=== PATIENT | female | born 1940 | race Caucasian/White ===

== ENCOUNTER → 2019-12-17 14:59 | Outpatient (CLI) | payer MEDICARE, SELFPAY ==
--- NOTE | ~2019-12-17 | XR_ITS ---
XR chest 2V DATE: 12/17/2019 15:19 INDICATION: Cough TECHNIQUE: PA and lateral views COMPARISON: 10/22/2016 PA and lateral chest FINDINGS: Normal heart size. No hilar or mediastinal enlargement. There is aortic calcification and m ild unfolding. No pulmonary infiltrate or consolidation, pleural effusion or pulmonary vascular congestion or pneumo thorax is detected. Degenerative spurring of the thoracic and lumbar spine. IMPRESSION: No active cardiopulmonary disease Reviewed, dictated and finalized at location A.
== END ==
PROVIDERS: Visit Provider Internal Medicine
DX: R05 Cough (principal)
CPT/HCPCS: 71046

== ENCOUNTER 2022-01-12 11:03 | Outpatient (CLI) | payer MEDICARE, SELFPAY ==
--- NOTE | ~2022-01-12 | US_ITS ---
US pelvic complete w TV DATE: 01/12/2022 11:48 INDICATION: Abnormal vaginal bleeding; patient reports fallen uterus TECHNIQUE: Real-time imaging via transabdominal and translabial approach. Technologist was unable to perform transvaginal examination COMPARISON: None FINDINGS: This examination is very limited The uterus measures approximately 9.3 centers height, 4 cm AP and 5.8 cm transverse dimension with 8m m anteroposterior dimension of the central endometrial complex. The ovaries are not visualized. Consider CT or MR imaging for further evaluation. IMPRESSION: Limited examination; suboptimal visualization of the uterus and nonvisualization of the o varies Reviewed, dictated and finalized at Location A. Reviewed, dictated and finalized at location A. IMPRESSION: Limited examination; suboptimal visualization of the uterus and non visualization of the ovaries
== END 2022-01-12 11:04 ==
PROVIDERS: PCP Nurse Practitioner Family; Visit Provider Obstetrics & Gynecology
DX: N93.9 Abnormal uterine and vaginal bleeding, unspecified (principal)
CPT/HCPCS: 76830; 76856

== ENCOUNTER 2022-02-08 12:20 | Outpatient (CLI) | payer MEDICARE, SELFPAY ==
[2022-02-08 13:54] LABS: Basophils Absolute Auto 0.1 K/mm3 (0.0-0.1); Basophils Percent Auto 0.5 % (0.2-1.2); Eosinophils Absolute Auto 0.4 K/mm3 (0-0.3); Eosinophils Percent Auto 4.2 % (0-4.4); Hemoglobin 12.4 g/dL (12.0-15.0); Immature Granulocyte Absolute 0.04 K/mm3 (0.00-0.031); Immature Granulocyte Percent A 0.4 % (0-0.5); Lymphocytes Absolute Auto 1.76 K/mm3 (0.9-3.2); Lymphocytes Percent Auto 19.1 % (18.3-44.2); Mean Corpuscular Hemoglobin 29.7 pg (26-34); Mean Corpuscular Volume 95.7 fl (80-100); Mean Platelet Volume 9.7 fl (7.4-10.4); Monocytes Absolute Auto 0.6 K/mm3 (0.1-0.6); Monocytes Percent Auto 6.2 % (2.6-8.5); Neutrophils Absolute Auto 6.4 K/mm3 (1.3-6.7); Neutrophils Percent Auto 69.6 % (45.5-73.1); Platelet Count Result 242 k/mm3 (150-375); Red Blood Count 4.18 M/mm3 (4.2-5.4); Red Cell Distribution Width 13.9 % (11.5-14.5); White Blood Count 9.2 K/mm3 (4.5-10.0)
[2022-02-08 14:04] LABS: Alanine Aminotransferase 17 U/L (6-35); Albumin Level 4.3 g/dL (3.5-5.1); Alkaline Phosphatase 91 U/L (38-126); Anion Gap 4 mmol/L (8-16); Aspartate Amino Transferase 25 U/L (14-36); Bilirubin,Total 0.4 mg/dL (0.2-1.3); Blood Urea Nitrogen 28 mg/dL (7-17); Calcium 9.1 mg/dL (8.4-10.2); Carbon Dioxide 32 mmol/L (22-30); Chloride 103 mmol/L (98-107); Estimated Glomerular Filt Rate > 60; Glucose 107 mg/dL (65-110); Sodium 139 mmol/L (137-145)
[2022-02-08 14:23] LABS: INR 1.1; Partial Thromboplastin Time 25.3 SECONDS (22.3-36.8); Prothrombin Time 13.7 Seconds (11.1-14.7)
== END 2022-02-08 12:21 | disposition home or self-care (01) ==
LOC: ANHSURGERY 12:22
PROVIDERS: PCP Nurse Practitioner Family; Visit Provider Urology
DX: Z01.818 Encounter for other preprocedural examination (principal); N81.3 Complete uterovaginal prolapse; Z51.81 Encounter for therapeutic drug level monitoring; Z79.899 Other long term (current) drug therapy
CPT/HCPCS: 36415; 80053; 85025; 85610; 85730; 86850; 86900; 86901; 87086

== ENCOUNTER 2022-02-18 01:20 | Day surgery (SDC) | payer MEDICARE, SELFPAY ==
[2022-02-08 12:45] VITALS: BP 175/82; PULSE 70; RESP 16; TEMP 36.3; O2SAT 99; BMI 38.1
--- NOTE | 2022-02-08 13:03 | PC.NURSE ---
Report to the Outpatient Waiting Room, entrance under the green pavilion located off [facility], at time ___9:00AM____ on date __02/18/22 . OR Time: __11:00AM . - You and your visitor will be asked a series of questions to screen for COVID 19 for your protection. - Only one visitor is allowed at this time. - The patient visitor is requested to leave or wait in car when not with patient. - A mask is required within the hospital. Patients may have clear liquids (water, carbonated beverages, clear teas, apple juice) until 3 hours prior to surgery with a maximum of 20 ounces. - No food from midnight until time of surgery - Infants may have breast milk until 4 hours before surgery, formula 6 hours prior to surgery. - Children will be allowed to drink immediately following surgery. If applicable, please bring a bottle or sippy cup to assist with drinking. Juice, water, soda, and popsicles are readily available. For infants on formula, please bring formula the day of surgery. Pacifiers are allowed. Take the following medications with a SIP of water the morning of surgery: ____LEVOTHYROXINE, METOPROLOL Medications to discontinue per physician ____HOLD XERALTO 5 DAYS PRE-OP PER DR JOHNSON Date to take last dose____02/13/22 Please no make-up, nail greenlandic, hairspray, perfume, deodorant, or body powder the day of surgery. No jewelry (including any body piercings) or valuables the day of surgery, leave them at home. Please take a shower or bath the night before, or the morning of, surgery with an antibacterial soap. Wear comfortable, loose fitting clothing. Children are encouraged to wear pajamas. - Jewelry must be removed prior to entering the operating room. Rings and piercings that are not removed may be cut off. - The hospital will not accept responsibility for valuables. - Please leave all valuables, including medications, at home the day of surgery. If you are going home after surgery, a licensed tour driver must drive you home. - NO public transportation without another adult. - We recommend that an adult stay with you for 24 hours following discharge. - We also recommend that you do not drive, make important decision, drink alcoholic beverages, or take any drugs that were not prescribed by your health care provider for at least 24 hours after your discharge time. For Pediatric surgeries, we recommend two adults accompany the child home (only one inside the building at this time). Follow any additional instructions given to you from your surgeon. If you or anyone in your household have experienced Covid symptoms in the past week, please notify your surgeon or the nurse liaison at the phone number below for possible testing. Telephone instructions given to ___PATIENT and asked if any additional questions and then verbalized understanding. Patient advised to call surgeon office or pre surgery nurse liaison [phone] if any additional questions.
--- NOTE | 2022-02-17 21:17 | P.HP_ITS ---
H&P: HPI History of Present Illness Date/Time: 02/17/22 21:17 Chief Complaint: uterine prolapse. 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 Review of Systems Review of Systems: negative [facility] Past Medical History Medical History A-fib Diabetes type 2, controlled High blood pressure High cholesterol Family History Family History Other Acute myocardial infarction Acute rheumatic arthritis Cancer Depression Hypertension Social History Social History Smoking status: Never smoker Alcohol intake: current Substance use: never Substance use type: does not use Additional living arrangements comments: DAUGHTER Gender identity (if verbalized by the patient): Female Spiritual care concerns: No Meds Home Medications and Allergies Home Medications Medication Instructions Recorded Confirmed Type levothyroxine 100 mcg tablet 100 mcg PO QAM 01/02/22 02/08/22 History (Euthyrox) metoprolol tartrate 25 mg tablet 25 mg PO DAILY 01/02/22 02/08/22 History rivaroxaban 20 mg tablet (Xarelto) 20 mg PO DAILY 01/02/22 02/08/22 History simvastatin 20 mg tablet 20 mg PO DAILY 01/02/22 02/08/22 History amoxicillin 875 mg-potassium 1 tablet PO BID 02/08/22 02/08/22 History clavulanate 125 mg tablet lisinopril 20 1 tablet PO QAM 02/08/22 02/08/22 History mg-hydrochlorothiazide 25 mg tablet Allergies Allergy/AdvReac Type Severity Reaction Status Date / Time codeine AdvReac Intermediate NAUSEA Verified 02/08/22 12:33 Exam Narrative: NAD normal breating A+O x3 uterine prolapse +8 Assessment and Plan Assessment and plan (1) Uterine prolapse: Code(s): N81.4 - Uterovaginal prolapse, unspecified Status: Acute Assessment and Plan: Colpocleisis possible bulking agent
[2022-02-18] VITALS (8 sets, daily range): BP systolic 128–186; BP diastolic 57–93; PULSE 59–73; RESP 10–18; TEMP 36.1–36.7; O2SAT 96–100
[2022-02-18] MEDS: LACTATED RINGERS 1,000 ML 30 ML IV CONT ×2 (09:45→12:35)
--- NOTE | 2022-02-18 10:05 | WPDANESEPPF ---
Anes - Initial Pre Proc Eval Procedure: Operation Date: 02/18/22 11:00 Proposed Procedures p Colpocleisis - Willie Tadeo MD Date/Time: 02/18/22 10:05 Surgeon: Willie Tadeo MD Pre Op Diagnosis: Complete Uterovaginal Prolapse Patient Data Age: 81 Gender: F Height: 1.5 m Weight: 82.5 kg Last Vital Signs Temp 36.2 C L 02/18/22 09:22 Pulse 73 02/18/22 09:22 Resp 18 02/18/22 09:22 BP 186/79 H 02/18/22 09:22 Pulse Ox 100 02/18/22 09:22 O2 Del Method Room Air 02/18/22 09:22 Allergies Allergy/AdvReac Type Severity Reaction Status Date / Time codeine AdvReac Intermediate NAUSEA Verified 02/18/22 09:28 Home Medications Medication Instructions Recorded Confirmed Type levothyroxine 100 mcg tablet 100 mcg PO QAM 01/02/22 02/18/22 History (Euthyrox) metoprolol tartrate 25 mg tablet 25 mg PO DAILY 01/02/22 02/18/22 History rivaroxaban 20 mg tablet (Xarelto) 20 mg PO DAILY 01/02/22 02/18/22 History simvastatin 20 mg tablet 20 mg PO DAILY 01/02/22 02/18/22 History lisinopril 20 1 tablet PO QAM 02/08/22 02/18/22 History mg-hydrochlorothiazide 25 mg tablet Patient hx anesthesia problems: none Family hx anesthesia problems: none Results Review: All pre-operative results and documents have been reviewed as part of the pre-operative evaluation. [facility] [place] Past Medical History Medical History A-fib Diabetes type 2, controlled High blood pressure High cholesterol Family History Family History Other Acute myocardial infarction Acute rheumatic arthritis Cancer Depression Hypertension Social History Social History Smoking status: Never smoker Alcohol intake: current Substance use: never Substance use type: does not use Living arrangements: with family Additional living arrangements comments: DAUGHTER Gender identity (if verbalized by the patient): Female Spiritual care concerns: No Anes - Eval Final PreProcedure Day of Procedure 02/18/22 10:05 Patient weight: obese Heart: irregular rhythm Lungs: clear to auscultation Airway: Mallampati scale class II and special considerations poor dentition Neurological: other (alert) Last oral intake: >/= 8 hours ASA classification: III Emergent: no Anesthetic plan: proceed Anesthesia type and monitoring: general LMA and standard monitoring Results Review: All pre-operative results and documents have been reviewed as part of the pre-operative evaluation. Informed Consent: The patient's anesthetic plan and its attendant risks and benefits were discussed with the patient/family/POA. Questions were solicited and answers provided to the satisfaction of the patient/family/POA.
[2022-02-18] MEDS: ceFAZolin 2 GM/D5W 50 ML 2 GM/50 ML BAG IVPB (10:37)
[2022-02-18] MEDS: LIDO 1%/EPINEPHRINE/PF 1:200,000 30 ML VIAL XX (11:22)
--- NOTE | 2022-02-18 12:37 | W.PM.PROC2 ---
Procedure Note - Detailed Date of Procedure 02/18/22 Pre-op Diagnosis Complete Uterovaginal Prolapse Female perineal laxity Intrinsic sphincter deficiency Post-op Diagnosis Same Procedure Performed [place] colpocleisis Perineoplasty Cystoscopy with injection of bulking agent Surgeon Willie Tadeo MD Indications This was significant uterine prolapse. 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 She also has stress incontinence due to intrinsic sphincter deficiency. She is here today for a colpocleisis and bulking agent. She understands risks of bleeding, infection, damage surrounding organs, fistula formation, recurrence of prolapse, postoperative voiding dysfunction including incontinence and retention, inability to have penetrative intercourse. She agrees to proceed Findings Significant uterine prolapse Description of Procedure She has correctly identified. Informed consent obtained. From the operating room. She was given general anesthesia. She was placed in dorsal thigh position. She was prepped and draped in a sterile fashion. Time-out performed. I placed a [place] retractor. I placed a [place] catheter. She had significant uterine prolapse at +8. I kelly out rectangle shaped areas the anterior the posterior vaginal wall. I left drainage tunnels laterally. I anesthetized the posterior vaginal wall. I removed mucosa posterior vaginal wall taking great care to leave underlying fascial structures. Of note it was quite thin near the base of the prolapse. There is no violation of the peritoneum. I then removed a rectangle shaped area of skin on the anterior vaginal wall after anesthetizing it. I then performed a [place] colpocleisis. I left drainage tunnels laterally. I did this with serial sutures of 0 Vicryl. This route totally reduce the prolapse. I then closed mucosa to mucosa with interrupted horizontal mattress of 0 Vicryl. I then turned my attention to the perineum. There was quite a bit of perineal laxity. I anesthetized a sariah-shaped area of skin on the perineum. I removed this area of skin. I then performed a significant perineoplasty. This completed the colpocleisis. I did this with interrupted 0 Vicryl suture. I took great care not done violate underlying structures. I then closed the mucosa with a 2 0 Vicryl suture. This resulted in excellent perineal support and complete reduction of the prolapse. I then performed cystoscopy. She had significant trabeculations in the bladder. There were cellules present. There is no sign of any violation of the bladder urethra. A guidewire was placed up both ureters documenting patency. I then turned my attention a bulking agent. The urethra is open consistent with intrinsic sphincter deficiency. I chose a site 2 cm distal to the bladder neck. I injected the bulking agent circumferentially. I used 1 syringe of the bulkamid material. This resulted in complete coaptation of the urethra. I did a rectal exam to ensure no violation of the rectum. Eye exam for hemostasis. Sheth catheter was left out. She was awakened and transferred to PACU in stable condition.
--- NOTE | 2022-02-18 12:50 | WPDHPUPDATE1 ---
History and Physical Update Update Date/Time: 02/18/22 12:50 History and Physical has been reviewed, including an updated exam of the patient. There are NO changes in the patient's condition. Risks, benefits, and alternatives have been discussed and questions answered. Patient agrees to proceed with procedure.
[2022-02-18] MEDS: fentaNYL CITRATE INJ (*CRX) 100 MCG/2 ML VIAL 25 MCG IV PUSH ×3 (13:13→13:50)
[2022-02-18] MEDS: HYDROcodone/acetaminophen (*CRX) 5-325 MG TABLET 1 TAB PO ×2 (15:40→20:14)
[2022-02-18] MEDS: KCL 20 MEQ/D5/0.45% SOD CHL 1,000 ML 100 ML IV CONT (17:00)
[2022-02-19 00:30] VITALS: BP 138/65; PULSE 66; RESP 18; TEMP 36.7; O2SAT 97
[2022-02-19] MEDS: KCL 20 MEQ/D5/0.45% SOD CHL 1,000 ML 100 ML IV CONT (03:10)
[2022-02-19 04:30] VITALS: BP 143/68; PULSE 66; RESP 16; TEMP 36.4; O2SAT 97
[2022-02-19] MEDS: LEVOTHYROXINE SODIUM 100 MCG TABLET PO (07:03)
[2022-02-19 07:10] VITALS: BP 121/57; PULSE 67; RESP 18; TEMP 36.6; O2SAT 95
--- NOTE | 2022-02-19 09:13 | WPDANESPN ---
Anes - Prog Note Post-Op Date/Time: 02/19/22 09:13 Cardiovascular status: normal Respiratory status: normal Airway patency: baseline Mental status: baseline Post-Op hydration status: normal Vital Signs: Last Vital Signs Temp 97.9 F 02/19/22 07:10 Pulse 67 02/19/22 07:10 Resp 18 02/19/22 07:10 BP 121/57 L 02/19/22 07:10 Pulse Ox 95 02/19/22 07:10 O2 Del Method Room Air 02/19/22 04:30 O2 Flow Rate 8 02/18/22 12:55 Pain Score (VAS): 09/24 I/O: Intake & Output 02/18/22 02/19/22 02/19/22 23:59 07:59 15:59 Intake Total 290 1120 Output Total 925 425 Balance -635 695 Post-procedural complaints: none Patient Feedback: Patient satisfied with anesthetic care.
[2022-02-19] MEDS: ENOXAPARIN 30 MG/0.3 ML SYRINGE SUB-Q (09:53)
[2022-02-19] MEDS: DOCUSATE SODIUM 100 MG CAPSULE PO (09:53)
[2022-02-19 09:55] VITALS: PULSE 72
[2022-02-19] MEDS: hydroCHLOROthiazide 25 MG TABLET PO (09:55)
[2022-02-19] MEDS: METOPROLOL TARTRATE 25 MG TABLET PO (09:55)
[2022-02-19] MEDS: SIMVASTATIN 20 MG TABLET PO (09:56)
[2022-02-19] MEDS: lisinopriL 20 MG TABLET PO (09:56)
--- NOTE | 2022-02-19 11:55 | WPDUROPN2 ---
Progress Note: A&P Assessment and Plan (1) Uterine prolapse: Code(s): N81.4 - Uterovaginal prolapse, unspecified Status: Acute Assessment and Plan: Patient is doing very well, she can have her sim removed and a voiding trial. IF her bladder scan is <350cc she may be discharged home after urination. She will f/u in six weeks. (2) Complete uterine prolapse: Code(s): N81.3 - Complete uterovaginal prolapse Status: Acute Subjective Subjective Date/Time Seen: 02/19/22 11:55 [place] Colpocleisis, perineoplasty, cysto with injection of bulking agent. Patient is doing very well this morning, tolerating diet and activity. She has minimal pain. Post Op day: 1 Review of Systems Cardiovascular: Cardiovascular: Denies chest pain Respiratory: Respiratory: Reports no additional respiratory complaints Gastrointestinal: Gastrointestinal: Denies abdominal pain, Denies nausea and Denies vomiting Genitourinary: Genitourinary: Denies hematuria, Denies nocturia, Denies flank pain, Denies urinary urgency and Reports vaginal discharge Exam Const: General: cooperative Resp: Effort & Inspection: normal respiratory effort Cardio: Rate: regular rate GI: GI Palp: Yes Soft to palpation and No Tenderness to palpation present (GI) : General: Yes no CVA tenderness Urinary Catheter: Urinary Catheter: patent and draining and urine clear Back/Spine/Pelvis: Back: No CVA tenderness Extrem: Right lower extremity: edema Left lower extremity: edema Psych: Mental Status: mental status grossly normal Affect: normal affect Attitude: cooperative Objective Data Vital Signs Vital Signs: Vital Signs - 24 hr 02/18/22 12:40 02/18/22 12:55 02/18/22 13:10 Temperature 97.5 F L Pulse Rate 73 71 64 Respiratory Rate 14 16 14 Blood Pressure 129/74 145/83 H 136/64 Pulse Oximetry 100 100 98 Oxygen Delivery Simple Face Mask Simple Face Mask Room Air Oxygen Flow Rate 8 8 02/18/22 13:25 02/18/22 13:40 02/18/22 14:10 Temperature 97 F L Pulse Rate 62 59 L 59 L Respiratory Rate 10 L 16 18 Blood Pressure 130/69 138/93 H 136/57 L Pulse Oximetry 96 96 98 Oxygen Delivery Room Air Room Air Oxygen Flow Rate 02/18/22 14:10 02/18/22 20:05 02/18/22 20:05 Temperature 98.1 F Pulse Rate 59 L 72 72 Respiratory Rate 18 18 18 Blood Pressure 128/60 Pulse Oximetry 98 96 96 Oxygen Delivery Room Air Room Air Oxygen Flow Rate 02/19/22 00:30 02/19/22 00:30 02/19/22 04:30 Temperature 98.1 F 97.6 F Pulse Rate 66 66 66 Respiratory Rate 18 18 16 Blood Pressure 138/65 143/68 H Pulse Oximetry 97 97 97 Oxygen Delivery Room Air Oxygen Flow Rate 02/19/22 04:30 02/19/22 07:10 02/19/22 09:55 Temperature 97.9 F Pulse Rate 66 67 72 Respiratory Rate 16 18 Blood Pressure 121/57 L Pulse Oximetry 97 95 Oxygen Delivery Room Air Oxygen Flow Rate Intake/Output Intake/Output: Intake & Output 02/16/22 02/17/22 02/18/22 02/19/22 23:59 23:59 23:59 23:59 Intake Total 2040 1170 Output Total 925 425 Balance 1115 745 Meds/Results Medications: Active Medications Generic Name Dose Route Start Last Admin Trade Name Freq PRN Reason Stop Dose Admin Acetaminophen 650 mg 02/18/22 13:58 Acetaminophen 325 Mg Tablet PO Q4H PRN Mild Pain (1-3) or Fever Hydrocodone Bitart/Acetaminophen 1 tab 02/18/22 13:58 02/18/22 20:14 Hydrocodone/Acetaminophen (*Crx) 5-325 Mg Tablet PO 1 tab Q4H PRN Administration Pain Rated 4-5 Cephalexin HCl 500 mg 02/19/22 17:00 Cephalexin 500 Mg Capsule PO QID JESSICA Diphenhydramine HCl 25 mg 02/18/22 13:58 Diphenhydramine Hcl Inj 50 Mg/Ml Vial IV PUSH Q6H PRN Itching Docusate Sodium 100 mg 02/19/22 09:00 02/19/22 09:53 Docusate Sodium 100 Mg Capsule PO 100 mg DAILY JESSICA Administration Enoxaparin Sodium 30 mg 02/19/22 09:00 02/19/22 09:53 Enoxaparin 30 Mg/0.3 Ml Syringe SUB-
[2022-02-19] MEDS: HYDROcodone/acetaminophen (*CRX) 5-325 MG TABLET 1 TAB PO (14:56)
== END 2022-02-19 16:00 | disposition home or self-care (01) ==
LOC: ANHSURGERY 12:48 → ANHOB2 14:03
PROVIDERS: PCP Nurse Practitioner Family; Visit Provider Urology
PROC: (CPT 57120; principal; 2022-02-18 11:00)
DX: N81.3 Complete uterovaginal prolapse (principal); N36.42 Intrinsic sphincter deficiency (ISD); I48.91 Unspecified atrial fibrillation; E11.9 Type 2 diabetes mellitus without complications; I10 Essential (primary) hypertension; E78.00 Pure hypercholesterolemia, unspecified; Z79.01 Long term (current) use of anticoagulants; E66.9 Obesity, unspecified; Z68.36 Body mass index [BMI] 36.0-36.9, adult
CPT/HCPCS: 57120; 51715; 36415; 80053; 85025; 85610; 85730; 86850; 86900; 86901; 87086; 99199; A9270; C1758; C1769; J0690; J1650; J2405; J2704; J3010; J3480; J7030; J7120; L8606

== ENCOUNTER 2022-02-25 00:08 | Emergency (ER) | payer MEDICARE, SELFPAY ==
--- NOTE | ~2022-02-25 | XR_ITS ---
EXAMINATION: XR chest 1V DATE: 02/25/2022 01:07 INDICATION: Fluid retention. TECHNIQUE: A single frontal view of the chest was obtained. COMPARISON: Chest 2 views 12/17/2019, chest CT 08/22/2007 FINDINGS: A calcified right lung nodule and calcified right hilar lymph nodes are consistent with old granulomatous disease. No pleural effusion or pneumothorax. The heart size is normal. IMPRESSION: 1. No acute cardiopulmonary disease. Reviewed, dictated and finalized at location B.
[2022-02-25 00:14] VITALS: BP 173/79; PULSE 84; RESP 18; TEMP 36.9; O2SAT 97
--- NOTE | 2022-02-25 00:21 | ECG_ITS ---
Measurements Intervals [place] Rate: 74 P: 32 MD: 197 QRS: -29 QRSD: 100 T: 21 QT: 382 QTc: 425 Interpretive Statements SINUS RHYTHM MODERATE VOLTAGE CRITERIA FOR LVH, CONSIDER NORMAL VARIANT [MEETS CRITERIA IN ONE OF: R(aVL), S(V1), R(V5), R(V5/V6)+S(V1)] POSSIBLE ANTEROSEPTAL MYOCARDIAL INFARCTION , PROBABLY OLD [30 ms Q WAVE IN V1-V4] LEFTWARD AXIS ABNORMAL ECG NO PREVIOUS ECG AVAILABLE FOR COMPARISON Electronically Signed On 02-25-2022 12:38:45 CDT by Jesus Moon M.D.
--- NOTE | 2022-02-25 00:23 | ED.LOWEXIN ---
HPI - Extremity Injury (Lower) General Chief Complaint: Extremity Injury, Lower Stated Complaint: ankle/foot swelling. Time Seen by Provider: 02/25/22 00:12 History of Present Illness HPI Narrative: 81-year-old female presents to the emergency room for evaluation of bilateral lower extremity swelling. Patient denies any injury or trauma. Patient states that she recently had a procedure to repair a pelvic organ prolapse on Friday and was discharged to her home on Friday. Patient developed painless bilateral lower extremity swelling 2 days later. Patient denies history of congestive heart failure. Patient denies any shortness of breath, difficulty breathing, or chest pain. Related Data Home Medications Medication Instructions Recorded Confirmed levothyroxine 100 mcg tablet 100 mcg PO QAM 01/02/22 02/18/22 (Euthyrox) metoprolol tartrate 25 mg tablet 25 mg PO DAILY 01/02/22 02/18/22 rivaroxaban 20 mg tablet (Xarelto) 20 mg PO DAILY 01/02/22 02/18/22 simvastatin 20 mg tablet 20 mg PO DAILY 01/02/22 02/18/22 lisinopril 20 1 tablet PO QAM 02/08/22 02/18/22 mg-hydrochlorothiazide 25 mg tablet Allergies Allergy/AdvReac Type Severity Reaction Status Date / Time codeine AdvReac Intermediate NAUSEA Verified 02/25/22 00:24 Review of Systems Review of Systems: CONSTITUTIONAL: Denies fever, chills, or sweats. EYES: Denies visual changes, redness, or discharge. ENT: Denies rhinorrhea, congestion, sore throat, or otalgia. CARDIOVASCULAR: Denies chest pain, palpitations reports lower extremity edema RESPIRATORY: Denies cough or dyspnea. GASTROINTESTINAL: Denies abdominal pain, nausea, vomiting, or diarrhea. GENITOURINARY: Denies dysuria or hematuria. SKIN: Denies rash or itching. MUSCULOSKELETAL: Denies back pain, joint pain, or myalgia. NEUROLOGIC: Denies headache, numbness, dizziness, or weakness. PSYCHIATRIC: Denies anxiety or depression. [facility] Past Medical History Medical History A-fib Diabetes type 2, controlled High blood pressure High cholesterol Family History Family History Other Acute myocardial infarction Acute rheumatic arthritis Cancer Depression Hypertension Social History Social History Smoking status: Never smoker Alcohol intake: current Substance use: never Substance use type: does not use Additional living arrangements comments: DAUGHTER Gender identity (if verbalized by the patient): Female Spiritual care concerns: No Course Course Emergency Course: GENERAL: Well-appearing, well-nourished, and in no acute distress. HEAD: Normocephalic, atraumatic. EYES: PERRLA and EOMI. CHEST: Clear to auscultation. No respiratory distress. No wheezes rales or rhonchi HEART: Regular rate and rhythm. No murmur heard. Normal peripheral pulses. ABDOMEN: Soft, nontender, nondistended, normal active bowel sounds. EXTREMITIES: Normal range of motion. Bilateral lower pitting edema +2 SKIN: Warm, dry, no rash. NEURO: No focal deficits. Alert and oriented x3. PSYCH: Normal mood and affect. Vital Signs Vital signs: Vital Signs Temperature 36.9 C 02/25/22 00:14 Pulse Rate 84 02/25/22 00:14 Respiratory Rate 18 02/25/22 00:14 Blood Pressure 173/79 H 02/25/22 00:14 Pulse Oximetry 97 02/25/22 00:14 Oxygen Delivery Room Air 02/25/22 00:14 Temperature 36.9 C 02/25/22 00:14 Pulse Rate 84 02/25/22 00:14 Respiratory Rate 18 02/25/22 00:14 Blood Pressure 173/79 H 02/25/22 00:14 Pulse Oximetry 97 02/25/22 00:14 Oxygen Delivery Room Air 02/25/22 00:14 MDM - Extremity Injury (Lower) MDM Narrative Medical decision making narrative: 81-year-old female presented emergency room with gradual onset of bilateral lower extremity edema that occurred 2 days ago. Patient states 5 days ago she had
[2022-02-25 00:54] VITALS: BP 154/74; PULSE 74; RESP 18; O2SAT 97
[2022-02-25 01:01] LABS: Basophils Percent Auto 0.4 % (0.2-1.2); Eosinophils Absolute Auto 0.2 K/mm3 (0-0.3); Eosinophils Percent Auto 3.1 % (0-4.4); Hemoglobin 9.8 g/dL (12.0-15.0); Immature Granulocyte Absolute 0.04 K/mm3 (0.00-0.031); Immature Granulocyte Percent A 0.6 % (0-0.5); Lymphocytes Absolute Auto 1.32 K/mm3 (0.9-3.2); Lymphocytes Percent Auto 19.5 % (18.3-44.2); Mean Corpuscular HGB Conc 31.6 g/dl (32-36); Mean Corpuscular Hemoglobin 29.9 pg (26-34); Mean Corpuscular Volume 94.5 fl (80-100); Monocytes Absolute Auto 0.7 K/mm3 (0.1-0.6); Monocytes Percent Auto 10.9 % (2.6-8.5); Neutrophils Absolute Auto 4.4 K/mm3 (1.3-6.7); Neutrophils Percent Auto 65.5 % (45.5-73.1); Platelet Count Result 206 k/mm3 (150-375); Red Blood Count 3.28 M/mm3 (4.2-5.4); Red Cell Distribution Width 13.7 % (11.5-14.5); White Blood Count 6.8 K/mm3 (4.5-10.0)
[2022-02-25 01:10] LABS: Alanine Aminotransferase 12 U/L (6-35); Albumin Level 3.8 g/dL (3.5-5.1); Alkaline Phosphatase 92 U/L (38-126); Anion Gap 5 mmol/L (8-16); Aspartate Amino Transferase 18 U/L (14-36); Bilirubin,Total 0.5 mg/dL (0.2-1.3); Blood Urea Nitrogen 19 mg/dL (7-17); Calcium 8.5 mg/dL (8.4-10.2); Carbon Dioxide 30 mmol/L (22-30); Chloride 103 mmol/L (98-107); Estimated CRCL calculation 43 ml/min; Estimated Glomerular Filt Rate 60; Glucose 123 mg/dL (65-110); Potassium 3.4 mmol/L (3.4-5.0); Sodium 138 mmol/L (137-145)
[2022-02-25 01:18] LABS: D Dimer 1.06 ug/mL (<0.48); NT Pro B Type Natriuretic Pept 543 pg/mL (5-100)
[2022-02-25 01:56] VITALS: BP 158/76; PULSE 76; RESP 16; O2SAT 95
== END 2022-02-25 01:56 | disposition home or self-care (01) ==
PROVIDERS: Emergency Provider Nurse Practitioner Family; PCP Nurse Practitioner Family
DX: R60.0 Localized edema (principal); R79.89 Other specified abnormal findings of blood chemistry; I48.91 Unspecified atrial fibrillation; E11.9 Type 2 diabetes mellitus without complications; Z79.899 Other long term (current) drug therapy; Z98.890 Other specified postprocedural states
CPT/HCPCS: 36415; 71045; 80053; 83880; 85025; 85380; 93005; 99283

== ENCOUNTER 2022-04-22 11:09 | Emergency (ER) | payer MEDICARE, SELFPAY ==
[2022-04-22 11:13] VITALS: BP 152/81; PULSE 85; RESP 14; TEMP 36.4; O2SAT 97
--- NOTE | 2022-04-22 13:36 | ED.GENADULT ---
HPI - General Adult General Chief complaint: Extremity Problem,Nontraumatic Stated complaint: swollen feet Time Seen by Provider: 04/22/22 12:02 History of Present Illness HPI narrative: Patient is an 81-year-old female who presents ER with lower extremity swelling. Worsening over the last 2 to 3 days. She is unsure if she ate any salt but thinks she is just been eating vegetables. No chest pain or chest pressure. This happened to her a couple months ago and taking 3 days of Lasix improved her symptoms. She is without orthopnea. She is taking Xarelto as a blood thinning agent. She has scheduled follow-up with her PCP in a few days. Related Data Home Medications Medication Instructions Recorded Confirmed levothyroxine 100 mcg tablet 100 mcg PO QAM 01/02/22 02/18/22 (Euthyrox) metoprolol tartrate 25 mg tablet 25 mg PO DAILY 01/02/22 02/18/22 rivaroxaban 20 mg tablet (Xarelto) 20 mg PO DAILY 01/02/22 02/18/22 simvastatin 20 mg tablet 20 mg PO DAILY 01/02/22 02/18/22 lisinopril 20 1 tablet PO QAM 02/08/22 02/18/22 mg-hydrochlorothiazide 25 mg tablet Allergies Allergy/AdvReac Type Severity Reaction Status Date / Time codeine AdvReac Intermediate NAUSEA Verified 04/22/22 11:27 Review of Systems Review of Systems: All systems reviewed & are unremarkable except as noted in HPI and below Constitutional: Constitutional: Denies chills and Denies fever(s) Cardiovascular: Cardiovascular: Denies chest pain, Denies rapid heart rate and Denies radiating jaw, neck or arm pain Respiratory: Respiratory: Denies chest congestion, Denies cough, Denies dyspnea and Denies wheezing Musculoskeletal: Musculoskeletal: Denies arthralgias and Denies joint swelling Comments: Lower extremity edema PMFSH Past Medical History Medical History (Updated 04/22/22 @ 13:41 by Dick Millan MD) A-fib Diabetes type 2, controlled High blood pressure High cholesterol History of pulmonary embolism Surgical History Surgical History (Updated 04/22/22 @ 13:38 by Dick Millan MD) History of left heart catheterization Family History Family History Other Acute myocardial infarction Acute rheumatic arthritis Cancer Depression Hypertension Social History Social History Smoking status: Never smoker Alcohol intake: current Substance use: never Substance use type: does not use Additional living arrangements comments: DAUGHTER Gender identity (if verbalized by the patient): Female Spiritual care concerns: No Exam Narrative: GENERAL: Well-appearing, well-nourished, and in no acute distress. HEAD: Normocephalic, atraumatic. CHEST: Clear to auscultation. No respiratory distress. HEART: Regular rate and rhythm. Normal peripheral pulses. EXTREMITIES: Normal range of motion. 2+ edema. Negative Homans' sign. SKIN: Warm, dry, no rash. NEURO: Alert and oriented x3. PSYCH: Normal mood and affect. Course Course Emergency Course: Patient resting comfortably in no distress. No hypoxia. No elevated heart rate. Patient has been compliant with home blood thinning agents. She does not want to stay in the ER and have any lab work performed nor any imaging. Due to the fact that she has close follow-up and she has had normal renal function during her last visit she will be placed on 3 days of Lasix and a small dose of potassium and she can follow-up with her PCP. Patient appreciates this plan. Discussed return precautions and patient verbalized understanding. Vital Signs Vital signs: Vital Signs Temperature 97.6 F 04/22/22 11:13 Pulse Rate 85 04/22/22 11:13 Respiratory Rate 14 04/22/22 11:13 Blood Pressure 152/81 H 04/22/22 11:13 Pulse Oximetry 97 04/22/22 11:13 Oxygen Delivery Room Air 04/22/22 11:13 Temperature 97.6 F 04/22/22 11:13 Pulse Rate 85 04/22/22 11:13
[2022-04-22 14:03] VITALS: BP 153/78; PULSE 70; RESP 18; TEMP 36.5; O2SAT 99
== END 2022-04-22 14:03 | disposition home or self-care (01) ==
PROVIDERS: Emergency Provider Emergency Medicine; PCP Nurse Practitioner Family
DX: R60.0 Localized edema (principal); I48.91 Unspecified atrial fibrillation; E11.9 Type 2 diabetes mellitus without complications; I10 Essential (primary) hypertension; E78.00 Pure hypercholesterolemia, unspecified; Z86.711 Personal history of pulmonary embolism; Z79.01 Long term (current) use of anticoagulants
CPT/HCPCS: 99283

== ENCOUNTER 2023-12-10 20:47 | Emergency (ER) | payer MEDICARE, SELFPAY ==
--- NOTE | ~2023-12-10 | XR_ITS ---
EXAMINATION: XR chest 1V portable Exam Date/Time: 12/10/2023 22:10 CDT HISTORY: near syncope WITH LEFT SIDED ARM AND NECK PAIN X 1 DAY Comparison: 02/25/2022. RESULT: Lines, tubes, and devices: None. Lungs and pleura: Senescent changes, otherwise clear. Cardiomediastinal silhouette: Stable. Other: No acute osseous or upper abdominal finding. IMPRESSION: No acute cardiopulmonary process. Reviewed, dictated and finalized at location K.
--- NOTE | ~2023-12-10 | CT_ITS ---
EXAMINATION: CT abdomen pelvis wo con DATE: 12/10/2023 23:39 INDICATION: flank pain TECHNIQUE: Computed tomography (CT) of the abdomen and pelvis was performed without intravenous contr ast. Automated exposure control and iterative reconstruction technique were employed. The dose-length product was 670.33 mGy-cm. COMPARISON: None. FINDINGS: Lower thorax: Dependent left lower lobe scar. Calcified left lower lobe granuloma/hamartoma. Calcifie d left inferior hilar node. Mitral calcification. Liver: Normal. Biliary/Gallbladder: Calcifications at the gallbladder neck may represent gallbladder stones versus w all calcification. No bile duct dilation. Pancreas: No mass or duct dilation. Spleen: Normal. Adrenals:No mass. Kidneys: No suspicious mass, obstructing stone, or hydronephrosis. Multiple simple left renal cysts, measuring up to 5.1 cm in the left midpole. 11 mm simple right lower pole cyst. GI tract: No small or large bowel dilation. Normal appendix. Diverticulosis without diverticulitis. Mesentery/Peritoneum: No ascites, mass, or free air. Retroperitoneum: No mass. Pelvis: Mild bladder wall inflammatory change. Gas bubbles in the bladder lumen. Normal uterus and ov jacquelyn. Soft Tissues: Enlarged left inguinal lymph nodes. Bones: No acute osseous finding. IMPRESSION: Cholelithiasis versus wall calcification at the gallbladder neck. No inflammatory change or perichole cystic fluid. Irregular urinary bladder wall thickening with inflammation and nondependent intraluminal gas concer parminder for cystitis. Left inguinal lymphadenopathy. Reviewed, dictated and finalized at location K. IMPRESSION: Cholelithiasis versus wall calcification at the gallbladder neck. No inflammato ry change or pericholecystic fluid. Irregular urinary bladder wall thickening with inflammation and nondependent i ntraluminal gas concerning for cystitis. Left inguinal lymphadenopathy.
[2023-12-10 20:48] VITALS: BP 143/41; PULSE 84; RESP 18; TEMP 36.6; O2SAT 98
--- NOTE | 2023-12-10 20:56 | ECG_ITS ---
Measurements Intervals [place] Rate: 82 P: 14 LA: 189 QRS: -41 QRSD: 104 T: 100 QT: 384 QTc: 449 Interpretive Statements SINUS RHYTHM LEFT AXIS DEVIATION LEFT VENTRICULAR HYPERTROPHY AND ST-T CHANGE ANTEROSEPTAL INFARCT, AGE INDETERMINATE ABNORMAL ECG COMPARED TO ECG 02/25/2022 00:30:14 NO SIGNIFICANT CHANGES Electronically Signed On 12-11-2023 6:26:42 CDT by Jeison Saldivar D.O.
[2023-12-10 21:08] LABS: Basophils Absolute Auto 0.1 K/mm3 (0.0-0.1); Basophils Percent Auto 0.4 % (0.2-1.2); Eosinophils Absolute Auto 0.2 K/mm3 (0-0.3); Eosinophils Percent Auto 1.1 % (0-4.4); Hematocrit 43.8 % (37.0-47.0); Hemoglobin 14.2 g/dL (12.0-15.0); Immature Granulocyte Absolute 0.05 K/mm3 (0.00-0.031); Immature Granulocyte Percent A 0.3 % (0-0.5); Lymphocytes Absolute Auto 1.32 K/mm3 (0.9-3.2); Lymphocytes Percent Auto 8.3 % (18.3-44.2); Mean Corpuscular HGB Conc 32.4 g/dl (32-36); Mean Corpuscular Hemoglobin 30.3 pg (26-34); Mean Corpuscular Volume 93.4 fl (80-100); Monocytes Percent Auto 6.1 % (2.6-8.5); Neutrophils Absolute Auto 13.4 K/mm3 (1.3-6.7); Neutrophils Percent Auto 83.8 % (45.5-73.1); Platelet Count Result 282 k/mm3 (150-375); Red Blood Count 4.69 M/mm3 (4.2-5.4); White Blood Count 15.9 K/mm3 (4.5-10.0)
[2023-12-10 21:18] LABS: Alanine Aminotransferase 25 U/L (6-35); Albumin Level 4.8 g/dL (3.5-5.1); Alkaline Phosphatase 90 U/L (38-126); Anion Gap 10 mmol/L (4-12); Aspartate Amino Transferase 30 U/L (14-36); Blood Urea Nitrogen 40 mg/dL (7-17); Calcium 9.8 mg/dL (8.4-10.2); Carbon Dioxide 26 mmol/L (22-30); Chloride 98 mmol/L (98-107); Estimated CRCL calculation 21 ml/min; Estimated Glomerular Filt Rate 25; Glucose 238 mg/dL (65-110); Sodium 134 mmol/L (137-145)
[2023-12-10] MEDS: SODIUM CHLORIDE 0.9% IV 1,000 ML 500 ML IV CONT (22:07)
--- NOTE | 2023-12-10 22:27 | ED.GENADULT ---
HPI - General Adult General Chief complaint: Back Pain/Injury Stated complaint: near syncope Time Seen by Provider: 12/10/23 21:23 History of Present Illness HPI narrative: patient is an 83-year-old female who presents to the emergency department after a near syncopal episode. Patient states that she was in the kitchen using her walker making food with her granddaughter when she felt lightheaded, as if she was going to pass out. Patient denies passing out, denies any falls, denies any head injury or any additional injuries. Patient admits that she has recently changed her diet and complete eliminated all of her salt intake after her primary care physician informed her that kidney function is elevated. Patient states that she has not had much to eat today, a few pieces of fruit and sweet potato which will ease could be contributing to her symptoms. Patient states that she is had some left arm soreness some lower back soreness earlier today while she was standing in the kitchen but admits that her soreness has now subsided and is currently denies any arm pain and any lower back pain. Patient states that she did not want to come in, however, her daughter who lives with her prompted her to come and get checked out. Patient is currently resting comfortably and denies symptoms at this time. She denies any chest pain, shortness of breath, any fevers or chills, any lightheadedness, dizziness or room spinning sensation. Any focal weakness numbness and no tingling. There are no other modifying, alleviating, or precipitating factors at this time. Related Data Home Medications Medication Instructions Recorded Confirmed levothyroxine 100 mcg tablet 100 mcg PO QAM 01/02/22 02/18/22 (Euthyrox) metoprolol tartrate 25 mg tablet 25 mg PO DAILY 01/02/22 02/18/22 rivaroxaban 20 mg tablet (Xarelto) 20 mg PO DAILY 01/02/22 02/18/22 simvastatin 20 mg tablet 20 mg PO DAILY 01/02/22 02/18/22 lisinopril 20 1 tablet PO QAM 02/08/22 02/18/22 mg-hydrochlorothiazide 25 mg tablet Allergies Allergy/AdvReac Type Severity Reaction Status Date / Time codeine AdvReac Intermediate NAUSEA Verified 12/10/23 20:54 Review of Systems Review of Systems: All systems are reviewed and are negative unless stated otherwise in the HPI. [facility] Past Medical History Medical History A-fib Diabetes type 2, controlled High blood pressure High cholesterol History of pulmonary embolism Surgical History Surgical History History of left heart catheterization Family History Family History Other Acute myocardial infarction Acute rheumatic arthritis Cancer Depression Hypertension Social History Social History Smoking status: Never smoker Alcohol intake: current Substance use: never Substance use type: does not use Living arrangements: with family Additional living arrangements comments: DAUGHTER Occupation/Education: retired Gender identity (if verbalized by the patient): Female Spiritual care concerns: No Exam Narrative: General: Alert, awake, afebrile, in no acute distress. HEENT: PERRL, no rhinorrhea, no post nasal drip, oropharynx clear. Neck: Trachea midline, no JVD, no lymphadenopathy. Cardiovascular: Regular rate and rhythm, no murmurs, rubs or gallops, no peripheral edema. Respiratory: Clear to auscultation bilaterally, no tachypnea, no wheezing, no rhonchi, no rubs, no respiratory distress. Abdomen: Soft, nontender, nondistended, no rebound, no guarding, no peritoneal signs. Musculoskeletal: No joint swelling or deformity, normal muscle tone. Skin: No rashes or petechia, no signs of infection. Psychiatric: Alert and oriented, normal behavior and judgment for situation. Neurological: Alert and oriented t
--- NOTE | 2023-12-10 23:59 | PC.NURSE ---
Patient attempted to urinate without success. Refuses straight catheterization.
[2023-12-11 00:43] VITALS: BP 144/90; PULSE 88; RESP 15; O2SAT 100
== END 2023-12-11 00:44 | disposition home or self-care (01) ==
PROVIDERS: Emergency Medicine; Emergency Provider Emergency Medicine; PCP Internal Medicine
DX: N30.00 Acute cystitis without hematuria (principal); N17.9 Acute kidney failure, unspecified; R55 Syncope and collapse; D72.829 Elevated white blood cell count, unspecified; I48.91 Unspecified atrial fibrillation; I10 Essential (primary) hypertension; E11.9 Type 2 diabetes mellitus without complications; E78.00 Pure hypercholesterolemia, unspecified; Z86.711 Personal history of pulmonary embolism; Z79.01 Long term (current) use of anticoagulants; R94.31 Abnormal electrocardiogram [ECG] [EKG]; I51.7 Cardiomegaly; R93.2 Abnormal findings on diagnostic imaging of liver and biliary tract
CPT/HCPCS: 36415; 71045; 74176; 80053; 83735; 85025; 93005; 96360; 96361; 99284; J7030

== ENCOUNTER 2024-10-25 18:15 | Emergency (ER) | payer MEDICARE, SELFPAY ==
--- NOTE | ~2024-10-25 | XR_ITS ---
AP and lateral views of the right tibia/fibula Clinical History: Rash Findings: No acute fracture or dislocation is seen. Osseous alignment is anatomic. There is moderate to advanced degenerative change at the medial compartment of the knee. Diffuse soft tissue swelling n oted. Impression: Diffuse soft tissue swelling/subcutaneous soft tissue edema. No soft tissue gas evident. Degenerative change of the knee, as above.. Reviewed, dictated and finalized at location . SION OPERATIONS SPECIALIST Impression: Diffuse soft tissue swelling/subcutaneous soft tissue edema. No soft tissue gas evident. Degenerative change of the knee, as above..
--- NOTE | ~2024-10-25 | XR_ITS ---
Right ankle Technique: AP, oblique, and lateral views were obtained. Clinical History: Rash Findings: No acute fracture or dislocation is seen. Osseous alignment is anatomic. Ankle mortise and other visualized joint spaces are preserved. Diffuse soft tissue swelling noted. Impression: Diffuse soft tissue swelling. No soft tissue gas evident. No osseous or articular abnormality evident. Reviewed, dictated and finalized at [facility]. ER GLUE JOINTER FEEDBACK Impression: Diffuse soft tissue swelling. No soft tissue gas evident. No osseous or articular abnormality evident.
--- OUTSIDE RECORDS SUMMARY | 2024-10-25 18:18 | XMS_ITS | Clinical Summary ---
Author Organization [facility] Address [address] [place] [address] Care Team Providers Care Welfare Manager Name Role Phone Brianne Ko NP Primary Care Provider [phone] Allergies No known active allergies Medications simvastatin 20 MG tablet Take 20 mg by mouth daily. Active lisinopril-hydr oCHLOROthiazide 20-25 MG tablet Take 1 tablet by mouth 2 (two) times a day. Active levothyroxine 150 MCG tablet Take 150 mcg by mouth every morning. Active albuterol sulfate HFA 108 (90 Base) MCG/ACT inhaler Inhale 2 puffs into the lungs every 4 (four) hours as needed for Wheezing or Shortness of breath. Active acetaminophen CR (TYLENOL 8 HOUR ARTHRITIS PAIN) 650 MG Tab CR 8 hr tablet Take 650 mg by mouth 2 (two) times daily as needed (pain). Active Active Problems Problem Noted Date Diagnosed Date NSTEMI (non-ST elevation gia cardial infarction) ([facility]) 04/11/2020 NSTEMI (non-ST elevated myoc ardial infarction) ([facility]) 04/10/2020 Social History Tobacco Use Types Packs/Day Years Used Date Smoking Tobacco: Never Smokeless Tobacco: Never Alcohol Use Standard Drinks/Week Comments Yes 0 (1 standard drink = 0.6 oz pur e alcohol) AUDIT-C Answer Date Recorded Frequency of Alcohol Consumption Monthly or less 04/10/2020 Average Number of Drinks Not on file 020 Frequency of Binge Drinking Not on file 03/16 Comments Unknown Sex and Gender Information Value Date Recorded Sex Assigned at Not on file Legal Sex Female 11:07 AM CDT Gender Identity Not on file Sexual Orientation Not on file Last Filed Vital Signs Vital Sign Reading Time Taken Comments Blood Pressure 117/62 04/12/2020 1:22 PM CDT Pulse 74 04/12/2020 1:22 PM CDT Temperature 36.8 C (98.3 F) 04/12/2020 1:22 PM CDT Respiratory Rate 14 04/12/2020 1:22 PM CDT Oxygen Saturation 98% 04/12/2020 1:22 PM CDT Inhaled Oxygen Concentration - - Weight 72.6 kg (160 lb) 04/10/2020 11:29 AM CDT Height 154.9 cm (5' 1 ) 04/10/2020 11:29 AM CDT Body Mass Index 30.23 04/10/2020 11:29 AM CDT Plan of Treatment Health Maintenance Due Date Last Done Comments ASCVD Statin 1940 Pneumococcal Vaccine: 65+ Ye ars (1 of 2 - PCV) 1945 DTaP, Tdap and Td Vaccines ( 1 - Tdap) 1958 Zoster Vaccines (1 of 2) 1989 Annual Medicare Wellness Visit 2004 Dexa Scan (General) 2004 RSV Immunization or 60+ Years (1 - 1-dose 75+ series) 2014 ASCVD LDL 04/11/2021 04/11/2020 COVID-19 Vaccine (1 - 2023-2 5 season) 2024 Influenza Adult (#1) 2024 Meningococcal B Vaccine Aged Out No l onger eligible based on patient's age to complete this topic Meningococcal Vaccine Aged Out No jaren lisa eligible based on patient's age to complete this topic RSV Immunizations Under 20 Months Aged Out No longer eligible based on patient's age to complete this topic Procedures Procedure Name Priority Date/Time Associated Diagnosis Comments LIPID PANEL Routine 04/11/2020 1:10 AM CDT from Last 3 Months or Most Recently Relevant to Health Maintenance Results * (ABNORMAL) LIPID PANEL (04/11/2020 1:10 AM CDT) CHOLESTEROL 102 <200 MG/DL 04/11/2020 2:00 AM CDT [facility] TRIGLYCERIDES 182(H) <150 MG/DL 04/11/2020 2:00 AM CDT [facility] HDL 38(L) >40.0 MG/DL 04/11/2020 2:00 AM CDT [facility] LDL (CALCULATED) 28 <100 MG/DL 04/11/2020 2:00 AM CDT [facility] NON HDL CHOLESTEROL 64 <130 MG/DL 04/11/2020 2:00 AM CDT [facility] CHOL/HDL RATIO 2.7 0.0 - 4.5 04/11/2020 2:00 AM CDT [facility] VLDL CALCULATION 36 5 - 55 MG/DL 04/11/2020 2:00 AM CDT [facility] LIPID INTERPRETATION 04/11/2020 2:00 AM T [facility] Comment: [facility] REPORT RECOMMENDATIONS: ADULT CHILD LOW RISK: CHOLESTEROL <200 <170 TRIGLYCERIDE <150 --- HDL >=60 --- LDL <100 <110 BORDERLINE: CHOLESTEROL 200-239 170-199 TRIGLYCERIDE 150-199 --- HDL 40-59 --- LDL 100-159 110-129 HIGH RISK: CHOLESTEROL >=240 >=200 TRIGLYCERIDE >=200 --- HDL <40 --- LDL >=160 >=130 04/11/2020 1:10 AM CDT Alexander Fofana MD LABORATORY Final Result [facility] [address] [place] [address], from Last 3 Months or Most Recently Relevant to Health Maintenance Insurance [facility] Advance Directives * DNR (Latest Code Status on File) Date Activated Date Inactivated Comments 04/10/2020 11:07 PM 04/12/2020 5:32 PM Care Teams Welfare Manager Relationship Specialty Start Date End Date Brianne Ko NP [facility] [address] [place] [address] PCP - General NURSE PRACTITIONER 04/10/20
--- OUTSIDE RECORDS SUMMARY | 2024-10-25 18:19 | XMS_ITS ---
Author Organization [facility] Address [address] [place] [address] Care Team Providers Care Sock Knitting Machine Operator Name Role Phone Isaiah Kevin Unavailable [phone] MEDICATIONS Medication SIG (Take, Route, Frequency, Duration) Notes Start Date End Date Status Ergocalciferol 1.25 MG (15169 UT) 1 capsule Orally Once a week for 90 day(s) 01/30/2024 10/25/2024 Active Calcitriol 0.25 MCG 1 capsule Orally Onc e a day for 90 day(s) 01/30/2024 10/25/2024 Active Losartan Potassium 25 MG 1 tablet Orally Once a day for 90 day(s) 01/30/2024 Active PROBLEMS Problem Type ICD Code Onset Dates Problem Status W/U Status Risk SNOMED Code Notes Problem Chronic kidney disease, stage 3 unspecified (N18.30) Active confirmed Chronic kidney disease stage 3 (disorder) ([id number]) Encounters Encounter Location Date Provider Diagnosis [facility] [address] [facility] [address] [place] [address] 07/02/2024 Kevin Colon Chronic kidney disea se, stage 3 unspecified N18.30 ; Essential (primary) hypertension I10 ; Edema, unspecified R60.9 ; Renal osteodystrophy N25.0 ; Proteinuria, unspecified R80.9 and Secondary hyperparathyroidism, not elsewhere classified E21.1 ASSESSMENTS Encounter Date Diagnosis Assessment Notes Treatment Notes Treatment Clinical Notes Section Notes 07/02/2024 Chronic kidney disease, stage 3 unspecified (ICD-10 - N18.30) 07/02/2024 Essential (primary) hypertension (ICD-10 - I10) 07/02/2024 Edema, unspecified (ICD-10 - R60.9) 07/02/2024 Renal osteodystrophy (ICD-10 - N25.0) 07/02/2024 Proteinuria, unspecified (ICD-10 - R80.9) 07/02/2024 Secondary hyperparathyroidism , not elsewhere classified (ICD-10 - E21.1) PLAN OF TREATMENT Next Appt Details Provider Name:Kevin Colon , 2024 01:15:00 PM, [address] [facility], [facility] [address], [place], [place], [facility], Progress Notes * Rustam BOXeDOB:1940 ([age] yo F)Acc No.[id number]:07/02/2024 Progress Notes Patient: Wendy BOX Provider: MD SCOT, F.A.C.P, F.A.S.N. :1940 Age:83 Y Sex:Female Date:07/02/2024 Address:[address] [place] [address] Subjective: * Chief Complaints: * * Medical History: * Medications: Taking Ergocalciferol 1.25 MG (67013 UT) Capsule 1 capsule Orally Once a week , stop date 10/25/2024, Taking Calcitriol 0.25 MCG Capsule 1 capsule Orally Once a day , stop date 10/25/2024, Taking Losartan Potassium 25 MG Tablet 1 tablet Orally Once a day Objective: Assessment: * Assessment: 1. Chronic kidney disease, stage 3 unspecified - N18.30 2. Essential (primary) hypertension - I10 3. Edema, unspecified - R60.9 4. Renal osteodystrophy - N25.0 5. Proteinuria, unspecified - R80.9 6. Secondary hyperparathyroidism, not elsewhere classified - E21.1 Plan: * Treatment: * Billing Information: * Visit Code: 18467 Office Visit, Est Pt., Level 4. * Procedure Codes: * ED PRODUCTS INSPECTOR TRIMMER Sign off status: Pending * Provider: MD SCOT, F.A.C.P, F.A.S.N. Date: 07/02/2024
--- OUTSIDE RECORDS SUMMARY | 2024-10-25 18:19 | XMS_ITS | Referral Summary ---
Author Organization [facility] Address [address] [place] [address] Care Team Providers Care Terry Cloth Cutter Hand Name Role Phone Brianne Ko APRN-BARRERA Primary Care Provider [phone] Source Comments [facility],non-owned Affiliates and Associated Physician Practices is amultiple site organization consisting of ambulatory clinics and hospital sitesin [place], [place]. This disclosure is being madepursuant to the Care Everywhere program and may not contain all information available regarding this patient. Last updated 18.[facility] Encounters Date Type Department Care Team Description 09/16/2024 Telephone Transitional Care at [facility] [address] [place] [id number] Karly Upton RNroving carrier 09/12/2024 6:24 PM BIRD KEEPER - 09/14/2024 12:47 PM [facility] Hospital Encounter [facility] [address] [place] [id number] Nacho Clay, Lauri Pino MD Aphasia (Primary Dx); Transient alteration of awareness; Facial droop; Hypothyroidism, unspecified type Discharge Disposition: Home or Self Care 09/13/2024 Travel from Last 3 Months Allergies No known active allergies Medications * Be aware that medications may not be up to date on this document. Alwaysverify current medications with the patient. Medication Sig Dispensed Refills Start Date End Date Status potassium chloride 20 MEQ/15ML (10%) solution Take 7.5 mL by mouth once daily 90 mL 3 09/14/2024 Active calcitriol (Rocaltrol) 0.25 MCG capsule Take 1 (one) capsule by mouth once daily 30 capsule 09/14/2024 Active levothyroxine (Synthroid) 100 MCG tablet Take 1 (one) tablet by mouth daily before breakfast 30 tablet 09/14/2024 Active rivaroxaban (Xarelto) 20 MG tablet Take 1 (one) tablet by mouth daily with food 30 tablet 09/14/2024 Active rosuvastatin (Crestor) 40 MG tablet Take 1 (one) tablet by mouth once daily 30 tablet 09/14/2024 Active Active Problems Problem Noted Date Diagnosed Date Transient alteration of awareness 09/12/2024 Aphasia 09/12/2024 HTN (hypertension) 09/12/2024 HLD (hyperlipidemia) 09/12/2024 CKD (chronic kidney disease) 09/12/2024 Hypothyroid 09/12/2024 A-fib 09/12/2024 History of UTI 09/12/2024 Resolved Problems Problem Noted Date Diagnosed Date Resolved Date Facial droop 09/12/2024 09/12/2024 Social History Tobacco Use Types Packs/Day Years Used Date Smoking Tobacco: Never Assessed Sex and Gender Information Value Date Recorded Sex Assigned at Not on file Gender Identity Not on file Sexual Orientation Not on file Last Filed Vital Signs Vital Sign Reading Time Taken Comments Blood Pressure 172/72 09/14/2024 11:16 AM BIRD KEEPER Pulse 88 09/14/2024 11:17 AM BIRD KEEPER Temperature 36.7 C (98 F) 09/13/2024 10:47 PM BIRD KEEPER Respiratory Rate 18 09/14/2024 11:17 AM BIRD KEEPER Oxygen Saturation 95% 09/14/2024 11:17 AM BIRD KEEPER Inhaled Oxygen Concentration - - Weight 88.9 kg (196 lb) 09/13/2024 9:36 AM BIRD KEEPER Height 162.6 cm (5' 4 ) 09/13/2024 8:32 PM BIRD KEEPER Body Mass Index 37.03 09/13/2024 9:36 AM BIRD KEEPER Functional Status Functional Status Response Date of Assess ment Is person deaf or have serious hearing difficult y? No 09/13/2024 Is person blind or have serious difficulty seein g? No 09/13/2024 Does person have serious dif ficulty walking/climbing stairs? No 09/13/2024 Does person have difficulty dressing/bathing? No 09/13/2024 Does person have difficulty doing errands alone? No 09/13/2024 Cognitive Status Response Date of Assessm ent Does person have difficulty concentrating/remembering/making decisions? No 09/13/2024 Plan of Treatment Not on file Procedures Procedure Name Priority Date/Time Associated Diagnosis Comments CARDIAC EKG ORDER 09/14/2024 1:[address] HEAD WO CONTRAST Routine 09/14/2024 6 :00 AM BIRD KEEPER Transient alteration of awareness Facial droop CBC W/O DIFFERENTIAL STAT 09/14/2024 2:15 AM BIRD KEEPER BASIC METABOLIC PANEL (CALCIUM TOTAL) STAT 09/14/2024 2:15 AM BIRD KEEPER GLUCOSE - POINT OF CARE Routine 09/13/2024 10:46 PM BIRD KEEPER GLUCOSE - POINT OF CARE Routine 09/13/2024 5:46 PM BIRD KEEPER TROPONIN-I HIGH SENSITIVE STAT 09/13/2024 1:22 PM BIRD KEEPER Aphasia GLUCOSE - POINT OF CARE Routine 09/13/2024 12:19 PM BIRD KEEPER BLOOD TYPE VERIFICATION STAT 09/13/2024 8:49 AM BIRD KEEPER TROPONIN-I HIGH SENSITIVE REFLEX 1HOUR Timed 09/13/2024 8:49 AM BIRD KEEPER URINALYSIS W/MICROSCOPIC NO CULTURE STAT 09/13/2024 8:45 AM BIRD KEEPER HEMOGLOBIN A1C Add on 09/13/2024 6:00 AM BIRD KEEPER LIPID PROFILE STAT 09/13/2024 6:00 AM BIRD KEEPER CBC W/O DIFFERENTIAL STAT 09/13/2024 6:00 AM BIRD KEEPER BASIC METABOLIC PANEL (CALCIUM TOTAL) STAT 09/13/2024 6:00 AM BIRD KEEPER T4 FREE Routine 09/12/2024 7:10 PM BIRD KEEPER Aphasia Transient alteration of awareness Facial droop Hypothyroidism, unspecified type TSH REFLEX FREE T4 Routine 09/12/2024 7: 10 PM BIRD KEEPER Aphasia Transient alteration of awareness Facial droop Hypothyroidism, unspecified type PHOSPHORUS BLOOD Routine 09/12/2024 7:10 PM BIRD KEEPER Aphasia Transient alteration of awareness MAGNESIUM BLOOD Routine 09/12/2024 7:10 PM BIRD KEEPER Aphasia Transient alteration of awareness TROPONIN-I HIGH SENSITIVE BASELINE + 1HR STAT 09/12/2024 7:10 PM BIRD KEEPER EKG 12-LEAD STAT 09/12/2024 7:04 PM BIRD KEEPER Aphasia Transient alteration of awareness XR CHEST 1VW PORTABLE STAT 09/12/2024 6:54 PM BIRD KEEPER Aphasia Transient alteration of awareness CT ANGIO BRAIN NECK STROKE STAT 09/12/2024 6:42 PM BIRD KEEPER Aphasia Transient alteration of awareness TYPE + SCREEN PANEL STAT 09/12/2024 6 :39 PM BIRD KEEPER PT-INR SLH STAT 09/12/2024 6:39 PM BIRD KEEPER COMPREHENSIVE METABOLIC PANEL STAT 09/12/2024 6:39 PM BIRD KEEPER CBC W AUTO DIFFERENTIAL STAT 09/12/2024 6:39 PM BIRD KEEPER CREATININE - POCT INTERFACED Routine 09/12/2024 6:36 PM BIRD KEEPER INR WHOLE BLOOD - POINT OF CARE (IP) STROKE Routine 09/12/2024 6:[address] BRAIN STROKE STAT 09/12/2024 6:28 PM BIRD KEEPER Aphasia Transient alteration of awareness from Last 3 Months Results * CARDIAC EKG ORDER (09/14/2024 1:29 PM BIRD KEEPER) Narrative 09/14/2024 1:29 PM BIRD KEEPER Ordered by an unspecified provider. Scanned Document CARDIAC SERVICES ORD ERABLES * CT Head Wo Contrast (09/14/2024 6:00 AM BIRD KEEPER) Anatomical Region Laterality Modality Head Computed Tomogra phy 09/14/2024 6:00 AM BIRD KEEPER Impressions 09/14/2024 10:22 AM BIRD KEEPER IMPRESSION: 1.No acute intracranial hemorrhage, midline shift, or significant mass effect. > Dictated by Jaswant Anaya MD (Prehemmer) I, Luan Rouse MD have personally reviewed and interpreted this examination/study. > Interpreting Provider: Luan Rouse MD on 09/14/2024 10:22 AM Narrative 09/14/2024 10:22 AM BIRD KEEPER PROCEDURE: CT HEAD WO CONTRAST, DATE/TIME OF EXAM: 09/14/2024 6:00 AM, LOCATION [facility] INDICATION: R40.4: Transient alteration of awareness R29.810: Facial droop EXAMINATION: Computed tomography (CT) of the head without contrast ADDITIONAL CLINICAL INFORMATION: Ordering Provider Reason For Exam: stroke follow up, pt denied MRI TECHNIQUE: CT of the head was performed without contrast according to standard protocol. CT dose reduction technique was used, including Automated Exposure Control. COMPARISON: CT brain stroke 09/12/2024 FINDINGS: No acute intra- or extra-axial fluid collections are identified. Small chronic lacunar infarcts within the bilateral basal ganglia. There is mild cerebral volume loss with associated ex vacuo ventricular dilatation. The basilar cisterns are patent. No mass effect or midline shift is seen. The willis-white matter differentiation is normal. Periventricular white matter hypoattenuation is indicative of chronic small vessel ischemic disease. There is vascular calcification of the carotid siphons. No acute calvarial fracture is identified. Unfused posterior arch of C1. Other than bilateral cataract extractions, the orbits appear normal. The paranasal sinuses are clear. The mastoid air cells are clear. No soft tissue abnormality is identified. Procedure Note Luan Rouse MD - 09/14/2024 PROCEDURE: CT HEAD WO CONTRAST, DATE/TIME OF EXAM: 09/14/2024 6:00 AM, LOCATION [facility] INDICATION: R40.4: Transient alteration of awareness R29.810: Facial droop EXAMINATION: Computed tomography (CT) of the head without contrast ADDITIONAL CLINICAL INFORMATION: Ordering Provider Reason For Exam: stroke follow up, pt denied MRI TECHNIQUE: CT of the head was performed without contrast according to standard protocol. CT dose reduction technique was used, including Automated Exposure Control. COMPARISON: CT brain stroke 09/12/2024 FINDINGS: No acute intra- or extra-axial fluid collections are identified. Small chronic lacunar infarcts within the bilateral basal ganglia. There ismild cerebral volume loss with associated ex vacuo ventricular dilatation.The basilar cisterns are patent. No mass effect or midline shift is seen.The willis-white matter differentiation is normal. Periventricular whitematter hypoattenuation is indicative of chronic small vessel ischemic disease. There is vascular calcification of the carotid siphons. No acutecalvarial fracture is identified. Unfused posterior arch of C1. Other thanbilateral cataract extractions, the orbits appear normal. The paranasal sinusesare clear. The mastoid air cells are clear. No soft tissue abnormality is identified. IMPRESSION: 1.No acute intracranial hemorrhage, midline shift, or significant mass effect. > Dictated by Jaswant Anaya MD (Prehemmer) I, Luan Rouse MD have personally reviewed and interpreted this examination/study. > Interpreting Provider: Luan Rouse MD on 09/14/2024 10:22 AM Lauri Girard MD CT ORDERABLES * (ABNORMAL) CBC W/O DIFFERENTIAL (09/14/2024 2:15 AM BIRD KEEPER) Only the most recent of2 resultswithin the time period is included. WBC 11.4(H) 4.0 - 10.7 x10E9/L 09/14/2024 3:14 AM BIRD KEEPER [facility] RBC Count 4.80 3.90 - 5.20 x10E12/L 09/14/2024 3:14 AM BIRD KEEPER [facility] Hemoglobin 14.4 11.9 - 15.8 g/dL 09/14/2024 3:14 AM [facility] Hematocrit 43.4 34.8 - 46.1 % 09/14/2024 3:14 AM [facility] MCV 90.4 80.0 - 98.0 fL 09/14/2024 3:14 AM [facility] MCH 30.0 26.7 - 33.6 pg 09/14/2024 3:14 AM [facility] MCHC 33.2 31.7 - 36.3 g/dL 09/14/2024 3:14 AM [facility] RDW-CV 13.9 11.3 - 14.8 % 09/14/2024 3:14 AM [facility] Platelet Count 09/14/2024 3:14 AM [facility] Comment:Platelets clumped on slide but appears decreased. Recommend repeat with a sodium citrate blue top tube. MPV 09/14/2024 3:14 AM [facility] Comment:Unable to report Blood BLOOD SPECIMEN / Unknown Venipuncture / Unknown 09/14/2024 2:15 AM BIRD KEEPER 09/14/2024 2:40 AM BIRD KEEPER Nacho Clay DO LAB - HEMATOLOGY ORD ERABLES [facility] [address] [place] [address], [facility] [phone] * (ABNORMAL) BASIC METABOLIC PANEL (CALCIUM TOTAL) (09/14/2024 2:15 AM BIRD KEEPER) Only the most recent of2 resultswithin the time period is included. BUN 17 7 - 26 mg/dL 09/14/2024 3:07 AM [facility] Creatinine 0.90 0.56 - 0.96 mg/dL 09/14/2024 3:07 AM [facility] Sodium 142 136 - 145 mmol/L 09/14/2024 3:07 AM [facility] Potassium 3.4(L) 3.5 - 4.5 mmol/L 09/14/2024 3:07 AM [facility] Chloride 104 98 - 107 mmol/L 09/14/2024 3:07 AM [facility] CO2 23 22 - 29 mmol/L 09/14/2024 3:07 AM [facility] Glucose 205(H) 70 - 99 mg/dL 09/14/2024 3:07 AM [facility] Calcium 9.7 8.4 - 10.2 mg/dL 09/14/2024 3:07 AM [facility] Anion Gap 15 6 - 16 09/14/2024 3:07 AM [facility] BUN/Creatinine Ratio 19 7 - 23 09/14/2024 3:07 AM [facility] Osmolality Calculated 301(H) 275 - 295 mOsm/kg 09/14/2024 3:07 AM [facility] eGFR by CKD-EPI 63(L) >=90 mL/min/1.7 3 m2 09/14/2024 3:07 AM [facility] Blood BLOOD SPECIMEN / Unknown Venipuncture / Unknown 09/14/2024 2:15 AM BIRD KEEPER 09/14/2024 2:40 AM BIRD KEEPER Nacho Clay DO LAB - CHEMISTRY ORDE SHERIDAN [facility] [address] [place] [address], [place] [phone] * (ABNORMAL) GLUCOSE - POINT OF CARE (09/13/2024 10:46 PM BIRD KEEPER) Only the most recent of3 resultswithin the time period is included. [facility] Glucose WB/POC 133(H) 70 - 99 mg/dL 09/13/2024 10:47 PM [facility] Specimen Type Cap Fingerstick 2023 10:47 PM [facility] Blood BLOOD SPECIMEN / Unknown 09/13/2024 10:46 PM BIRD KEEPER 09/13/2024 10:47 PM BIRD KEEPER Lauri Girard MD LAB - POINT OF CARE ORDERABLES [facility] [address] [place] [address], [place] [phone] * (ABNORMAL) TROPONIN-I HIGH SENSITIVE (09/13/2024 1:22 PM BIRD KEEPER) [facility] Troponin I High Sensitive 18(H) <=14 ng/L 09/13/2024 2:08 PM BIRD KEEPER [facility] Blood BLOOD SPECIMEN / Unknown Venipuncture / Unknown 09/13/2024 1:22 PM BIRD KEEPER 09/13/2024 1:33 PM BIRD KEEPER Lauri Girard MD LAB - CHEMISTRY KAITLYNN SWARTZ Performing Organization Address City/[facility]/ZIP Co de Phone Number [facility] [address] [place] [address], [place] [phone] * (ABNORMAL) TROPONIN-I HIGH SENSITIVE REFLEX 1HOUR (09/13/2024 8:49 AM BIRD KEEPER) Troponin I High Sensitive 20(H) <=14 ng/L 09/13/2024 9:34 AM BIRD KEEPER [facility] Delta Troponin I HS 09/13/2024 9:34 AM [facility] Comment:Delta value intentio turner not calculated. Baseline to 1 hour specimen collection interval exceeded. Blood BLOOD SPECIMEN / Unknown Venipuncture / Unknown 09/13/2024 8:49 AM BIRD KEEPER 09/13/2024 8:55 AM BIRD KEEPER Nacho Clay DO LAB - CHEMISTRY KAITLYNN SWARTZ Performing Organization Address [facility]/ZIP Co de Phone Number [facility] [address] [place] [address], [place] [phone] * BLOOD TYPE VERIFICATION (09/13/2024 8:49 AM BIRD KEEPER) ABO Rh A POS 09/13/2024 9:4 9 AM BIRD KEEPER [facility] Blood Bank BLOOD SPECIMEN / Unknown Venipuncture / Unknown 09/13/2024 8:49 AM BIRD KEEPER 09/13/2024 9:05 AM BIRD KEEPER Nacho Clay DO LAB - BLOOD BANK [place] CORRAL Performing Organization Address City/[facility]/ZIP Co de Phone Number [facility] [address] [place] [address], [place] [phone] * (ABNORMAL) URINALYSIS W/MICROSCOPIC NO CULTURE (09/13/2024 8:45 AM BIRD KEEPER) Color UA Rowena(A) Straw, Yellow 09/13/2024 9:13 AM [facility] Clarity UA Cloudy(A) Clear 09/13/2024 9:13 AM [facility] Specific Tarpley UA 1.034(H) 1.005 - 1.030 09/13/2024 9:13 AM [facility] pH UA 7.0 5.0 - 8.0 pH 09/13/2024 9:13 AM [facility] Protein UA 2+(A) Negative 09/13/2024 9:13 AM [facility] Glucose UA Negative Negative 09/13/2024 9:13 AM [facility] Ketone UA Negative Negative 09/13/2024 9:13 AM [facility] Bilirubin UA Negative Negative 09/13/2024 9:13 AM [facility] Blood UA 1+(A) Negative 09/13/2024 9:13 AM [facility] Nitrite UA Negative Negative 09/13/2024 9:13 AM [facility] Leukocyte Esterase Trace(A) Negative 09/13/2024 9:13 AM [facility] Urobilinogen UA 2.0(A) Negative mg/dL 09/13/2024 9:13 AM [facility] RBC UA 21-50(A) None Seen, 0-2, 3-5 /HPF 09/13/2024 9:13 AM [facility] WBC UA 6-10(A) None Seen, 0-5 /HPF 09/13/2024 9:13 AM [facility] Bacteria UA 3+(A) None /HPF 09/13/2024 9:13 AM [facility] Squamous Epithelial Cells UA 3-5 None Seen, 0-2, 3-5 /HPF 09/13/2024 9:13 AM [facility] Mucus UA 1+ /LPF 09/13/2024 9:13 AM [facility] Amorphous Crystals Few(A) None /HPF 09/13/2024 9:13 AM [facility] Urine URINE SPECIMEN OBTAINED BY CLEAN CATCH PROCEDURE / Unknown Collection / Unknown 09/13/2024 8:45 AM BIRD KEEPER 09/13/2024 8:55 AM BIRD KEEPER Narrative [facility] - 09/13/2024 9:13 AM BIRD KEEPER Nacho Clay DO LAB - URINALYSIS ORD ERABLES Performing Organization Address City/[facility]/ZIP Co de Phone Number [facility] [address] [place] [address], [facility] [phone] * (ABNORMAL) HEMOGLOBIN A1C (09/13/2024 6:00 AM BIRD KEEPER) Hemoglobin A1c 6.8(H) <=5.6 % 09/14/2024 9:53 AM [facility] Estimated Average Glucose 148 mg/dL 09/14/2024 9:53 AM [facility] Comment: HbA1c Interpretation: Normal : < 5.7% Pre-diabetes: 5.7-6.4% Diabetes: Equal to or greater than 6.5% Test results diagnostic of diabetes should be repeated for confirmation. Treatment target values recommended by ADA and other clinical organizations should be used to evaluate metabolic control in patients. Reference: [place] [employer], Standards of Care in Diabetes -2020 In patients 70 years and older consider HbA1c target range of 7.0-7.5% (Reference: Neel Galvez et al. JAMDA. 2012) The Sebia assay for the measurement of HbA1c is a National Glycohemoglobin Standardization Program (NGSP) certified method. Blood BLOOD SPECIMEN / Unknown Venipuncture / Unknown 09/13/2024 6:00 AM BIRD KEEPER 09/13/2024 8:53 PM BIRD KEEPER Kareem Bagley MD LAB - CHEMISTRY KAITLYNN SWARTZ Performing Organization Address City/[facility]/ZIP Co de Phone Number [facility] [address] [place] [address], [place] [phone] * (ABNORMAL) LIPID PROFILE (09/13/2024 6:00 AM BIRD KEEPER) Cholesterol Total 170 <200 mg/dL 09/13/2024 6:49 AM [facility] HDL 55 >40 mg/dL 09/13/2024 6:49 AM [facility] Comment: ATP III Classification of HDL Cholesterol: <40 mg/dL: Considered a major risk factor. >60 mg/dL: Considered a negative risk factor. LDL Calculated 82 <100 mg/dL 09/13/2024 6:49 AM [facility] Comment: ATP III Classification of LDL Cholesterol: <100 mg/dL: Optimal 100 - 129 mg/dL: Near Optimal/Above Optimal 130 - 159 mg/dL: Borderline High 160 - 189 mg/dL: High >190 mg/dL: Very High Triglycerides 163(H) <150 mg/dL 09/13/2024 6:49 AM [facility] Comment: ATP III Classification of Triglycerides: <150 mg/dL: Normal 150 - 199 mg/dL: Borderline High 200 - 400 mg/dL: High >500 mg/dL: Very High Blood BLOOD SPECIMEN / Unknown Venipuncture / Unknown 09/13/2024 6:00 AM BIRD KEEPER 09/13/2024 6:27 AM BIRD KEEPER Nacho Clay DO LAB - CHEMISTRY KIATLYNN SWARTZ [address] [address], [place] [phone] * TROPONIN-I HIGH SENSITIVE BASELINE + 1HR (09/12/2024 7:10 PM BIRD KEEPER) Pathologist [facility] Troponin I High Sensitive 12 <=14 ng/L 09/12/2024 7:49 PM BIRD KEEPER [facility] Blood BLOOD SPECIMEN / Unknown Venipuncture / Unknown 09/12/2024 7:10 PM BIRD KEEPER 09/12/2024 7:30 PM BIRD KEEPER Nacho Clay DO LAB - CHEMISTRY KAITLYNN SWARTZ [address] [address], [place] [phone] * (ABNORMAL) TSH REFLEX FREE T4 (09/12/2024 7:10 PM BIRD KEEPER) TSH 24.558(H) 0.350 - 4.940 uIU/mL 09/12/2024 9:14 PM BIRD KEEPER [facility] Blood BLOOD SPECIMEN / Unknown Venipuncture / Unknown 09/12/2024 7:10 PM BIRD KEEPER 09/12/2024 7:30 PM BIRD KEEPER Lauri Girard MD LAB - CHEMISTRY KAITLYNN SWARTZ [address] [address], [place] [phone] * PHOSPHORUS BLOOD (09/12/2024 7:10 PM BIRD KEEPER) Phosphorus 3.2 2.9 - 5.1 mg/dL 09/12/2024 7:50 PM BIRD KEEPER [facility] Blood BLOOD SPECIMEN / Unknown Venipuncture / Unknown 09/12/2024 7:10 PM BIRD KEEPER 09/12/2024 7:30 PM BIRD KEEPER Lauri Girard MD LAB - CHEMISTRY KAITLYNN SWARTZ Performing Organization Address City/[facility]/ZIP Co de Phone Number [address] [address], [place] [phone] * MAGNESIUM BLOOD (09/12/2024 7:10 PM BIRD KEEPER) Magnesium 1.8 1.6 - 2.6 mg/dL 09/12/2024 7:50 PM BIRD KEEPER [facility] Blood BLOOD SPECIMEN / Unknown Venipuncture / Unknown 09/12/2024 7:10 PM BIRD KEEPER 09/12/2024 7:30 PM BIRD KEEPER Lauri Girard MD LAB - CHEMISTRY KAITLYNN SWARTZ Performing Organization Address City/[facility]/ZIP Co de Phone Number [address] [address], [place] [phone] * T4 FREE (09/12/2024 7:10 PM BIRD KEEPER) T4 Free 0.7 0.7 - 1.5 ng/dL 09/12/2024 9:47 PM BIRD KEEPER [facility] Blood BLOOD SPECIMEN / Unknown Venipuncture / Unknown 09/12/2024 7:10 PM BIRD KEEPER 09/12/2024 7:30 PM BIRD KEEPER Lauri Girard MD LAB - CHEMISTRY KAITLYNN CHILANGOTAMIE Performing Organization Address City/[facility]/ZIP Co de Phone Number [facility] [address] [place] [address], [place] [phone] * EKG 12-LEAD (09/12/2024 7:04 PM BIRD KEEPER) Ventricular Rate 97 BPM [facility] MUSE Atrial Rate 97 BPM [facility] MUSE P-R Interval 186 ms [facility] MUSE QRS Duration ms 106 ms [facility] MUSE Q-T Interval ms 388 ms [facility] MUSE QTC Calculation (Bezet) 492 ms [facility] MUSE Calculated P [place] 60 degrees [facility] MUSE Calculated R [place] -29 degrees SL MUSE Calculated T [place] 94 degrees SL MUSE Interpretation EKG NORMAL SINUS RHYTHM MINIMAL VOLTAGE CRITERIA FOR LVH, MAY BE NORMAL VARIANT ( [place] product ) ANTEROSEPTAL INFARCT , AGE UNDETERMINED ABNORMAL ECG NO PREVIOUS ECGS AVAILABLE Confirmed by JEREMIAH CANNON MD ([id number]) on 09/15/2024 2:33:28 PM [facility] MUSE 09/12/2024 7:04 PM BIRD KEEPER 09/15/2024 2:33 PM BIRD KEEPER Nacho Clay DO ECG ORDERABLES Performing Organization Address [facility] Co de Phone Number [facility] M[facility] * XR Chest 1Vw Portable (09/12/2024 6:54 PM BIRD KEEPER) Anatomical Region Laterality Modality Chest Digital Radiogra phy 09/12/2024 7:53 PM BIRD KEEPER Narrative 09/12/2024 8:45 PM BIRD KEEPER PROCEDURE: XR CHEST 1VW PORTABLE, DATE/TIME OF EXAM: 09/12/2024 7:05 PM, LOCATION [facility] INDICATION: R47.01: Aphasia R40.4: Transient alteration of awareness ADDITIONAL CLINICAL INFORMATION: Ordering Provider Reason For Exam: pneumonia ro Comparison: No prior study is available for comparison at the time of this dictation. FINDINGS/IMPRESSION: Diffuse interstitial and patchy airspace opacities may relate to edema or atypical infection. No large pleural effusion, no pneumothorax. The cardiomediastinal silhouette is normal for portable technique. No displaced fractures visualized. Report dictated by Maikel Marr MD (medical resident). Klarissa Verma MD have personally reviewed and interpreted this examination/study. > Interpreting Provider: Klarissa Munoz MD on 09/12/2024 8:45 PM Procedure Note Klarissa Munoz MD - 09/12/2024 PROCEDURE: XR CHEST 1VW PORTABLE, DATE/TIME OF EXAM: 09/12/2024 7:05PM, LOCATION [facility] INDICATION: R47.01: Aphasia R40.4: Transient alteration of awareness ADDITIONAL CLINICAL INFORMATION: Ordering Provider Reason For Exam: pneumonia ro Comparison: No prior study is available for comparison at the time ofthis dictation. FINDINGS/IMPRESSION: Diffuse interstitial and patchy airspace opacities may relate to edemaor atypical infection. No large pleural effusion, no pneumothorax. The cardiomediastinal silhouette is normal for portable technique. Nodisplaced fractures visualized. Report dictated by Maikel Marr MD (medical resident). Klarissa Verma MD have personally reviewed and interpreted this examination/study. > Interpreting Provider: Klarissa Munoz MD on 09/12/2024 8:45 PM Nacho Clay DO DIAGNOSTIC IMAGING O RDERABLES * CT ANGIO BRAIN NECK STROKE (09/12/2024 6:42 PM BIRD KEEPER) Anatomical Region Laterality Modality Head Computed Tomogra phy 09/12/2024 6:57 PM BIRD KEEPER Impressions 09/12/2024 7:19 PM BIRD KEEPER IMPRESSION: 1. No acute intracranial hemorrhage. 2. No large arterial occlusions or significant stenoses identified in the head or neck. Viz.AI was used for large vessel occlusion detection. > Interpreting Provider: Milagros Flores MD on 09/12/2024 7:19 PM Narrative 09/12/2024 7:19 PM BIRD KEEPER PROCEDURE: CT ANGIO BRAIN NECK STROKE, DATE/TIME OF EXAM: 09/12/2024 6:43 PM, LOCATION [facility] INDICATION: Code Stroke ADDITIONAL CLINICAL INFORMATION: Ordering Provider Reason For Exam: Code stroke. Technologist Note: None. Additional: None. EXAMINATION: 1. Computed tomographic (CT) angiography of the head with contrast 2. CT angiography of the neck with contrast CONTRAST: IOPAMIDOL 76 % IV SOLN:75 mL TECHNIQUE: CT angiography of the head and neck was obtained after the uneventful administration of 75 mL Isovue-370 intravenous contrast. Three dimensional postprocessing was performed by the technologist and sent to the workstation for review. Stenosis measurements are based on NASCET criteria. CT dose reduction technique was used, including Automated Exposure Control. COMPARISON: No prior study is available for comparison at the time of this dictation. FINDINGS: Non-angiographic findings: Please refer to the separately dictated noncontrast head CT for the non-angiographic findings. Gentle kyphosis of the cervical spine. Multilevel degenerative disc and joint disease, worst at C5-C6 and C6-C7. Nonspecific calcifications along the spinous processes of the C6-T1 spinous processes. Angiographic findings: There is atherosclerotic disease of the aortic arch. The configuration of the brachiocephalic vessels is typical. There is atherosclerotic calcification of the innominate and subclavian arteries. There is atherosclerotic disease of the right carotid bifurcation and origin of the right internal carotid artery with less than 50 percent focal stenosis by NASCET criteria. The right common and internal carotid arteries otherwise appear normal. There is atherosclerotic disease of the left carotid bifurcation and origin of the left internal carotid artery with less than 50 percent focal stenosis by NASCET criteria. The left common and internal carotid arteries otherwise appear normal. Retropharyngeal course of the carotid arteries and the common carotid artery and the carotid bifurcations. Retropharyngeal course of the internal carotid arteries There is atherosclerotic disease involving the cervical vertebral arteries with mild stenosis of the origin of the left vertebral artery. There is atherosclerotic disease involving the distal internal carotid arteries without significant focal stenosis. The anterior and middle cerebral arteries appear normal. There is atherosclerotic disease involving the distal vertebral arteries without significant focal stenosis. The basilar artery and posterior cerebral arteries appear normal. No aneurysms, vascular occlusions, or hemodynamically significant intracranial stenoses are identified. Procedure Note Milagros Flores MD - 09/12/2024 PROCEDURE: CT ANGIO BRAIN NECK STROKE, DATE/TIME OF EXAM: :43 PM, LOCATION [facility] INDICATION: Code Stroke ADDITIONAL CLINICAL INFORMATION: Ordering Provider Reason For Exam: Code stroke. Technologist Note: None. Additional: None. EXAMINATION: 1. Computed tomographic (CT) angiography of the head with contrast 2. CT angiography of the neck with contrast CONTRAST: IOPAMIDOL 76 % IV SOLN:75 mL TECHNIQUE: CT angiography of the head and neck was obtained after the uneventful administration of 75 mL Isovue-370 intravenous contrast.Three dimensional postprocessing was performed by the technologist and sent to the workstation for review. Stenosis measurements are based on NASCET criteria. CT dose reduction technique was used, including Automated Exposure Control. COMPARISON: No prior study is available for comparison at the time ofthis dictation. FINDINGS: Non-angiographic findings: Please refer to the separately dictated noncontrast head CT for the non-angiographic findings. Gentle kyphosis of the cervical spine. Multilevel degenerative disc and joint disease, worst at C5-C6 and C6-C7. Nonspecific calcificationsalong the spinous processes of the C6-T1 spinous processes. Angiographic findings: There is atherosclerotic disease of the aortic arch. The configurationof the brachiocephalic vessels is typical. There is atherosclerotic calcification of the innominate and subclavian arteries. There is atherosclerotic disease of the right carotid bifurcation and origin ofthe right internal carotid artery with less than 50 percent focal stenosisby NASCET criteria. The right common and internal carotid arteriesotherwise appear normal. There is atherosclerotic disease of the left carotid bifurcation and origin of the left internal carotid artery with lessthan 50 percent focal stenosis by NASCET criteria. The left common andinternal carotid arteries otherwise appear normal. Retropharyngeal course of the carotid arteries and the common carotid artery and the carotid bifurcations. Retropharyngeal course of the internal carotid arteriesThere is atherosclerotic disease involving the cervical vertebral arterieswith mild stenosis of the origin of the left vertebral artery. There is atherosclerotic disease involving the distal internal carotid arteries without significant focal stenosis. The anterior and middle cerebral arteries appear normal. There is atherosclerotic diseaseinvolving the distal vertebral arteries without significant focal stenosis. The basilar artery and posterior cerebral arteries appear normal. Noaneurysms, vascular occlusions, or hemodynamically significant intracranialstenoses are identified. IMPRESSION: 1. No acute intracranial hemorrhage. 2. No large arterial occlusions or significant stenoses identified inthe head or neck. Viz.AI was used for large vessel occlusion detection. > Interpreting Provider: Milagros Flores MD on 09/12/2024 7:19 PM Nach[address] Clay DO CT ORDERABLES * PT-INR [facility] (09/12/2024 6:39 PM BIRD KEEPER) Pathologist [facility] PT 12.9 12.1 - 14.8 Seconds 09/12/2024 7:05 PM BIRD KEEPER [facility] INR 1.0 See Comment 09/12/2024 7:05 PM [facility] Comment:The suggested therap eutic range for standard coumadin (warfarin) therapy is an INR of 2.0-3.0. For high-risk patients (Mechanical Mitral Valve Prosthesis, etc.), the suggested prophylactic therapeutic range is an INR of 2.5-3.5. Blood BLOOD SPECIMEN / Unknown Venipuncture / Unknown 09/12/2024 6:39 PM BIRD KEEPER 09/12/2024 6:45 PM BIRD KEEPER Nacho Clay DO LAB - COAGULATION OR DERABLES [facility] [address] [place] [phone], [employer] [phone] * TYPE + SCREEN PANEL (09/12/2024 6:39 PM BIRD KEEPER) [facility] Antibody Screen NEG 7:42 PM BIRD KEEPER [facility] ABO Rh A POS 09/12/2024 7:42 PM BIRD KEEPER [facility] Blood Bank BLOOD SPECIMEN / Unknown Venipuncture / Unknown 09/12/2024 6:39 PM BIRD KEEPER 09/12/2024 6:50 PM BIRD KEEPER Nacho Clay DO LAB - BLOOD BANK ORD ERABLES [facility] [address] [place] [phone], [place] [phone] * CBC W AUTO DIFFERENTIAL (09/12/2024 6:39 PM BIRD KEEPER) [facility] WBC 6.5 4.0 - 10.7 x10E9/L 09/12/2024 7:23 PM [facility] RBC Count 4.29 3.90 - 5.20 x10E12/L 09/12/2024 7:23 PM [facility] Hemoglobin 12.9 11.9 - 15.8 g/dL 09/12/2024 7:23 PM [facility] Hematocrit 38.5 34.8 - 46.1 % 09/12/2024 7:23 PM [facility] MCV 89.7 80.0 - 98.0 fL 09/12/2024 7:23 PM [facility] MCH 30.1 26.7 - 33.6 pg 09/12/2024 7:23 PM [facility] MCHC 33.5 31.7 - 36.3 g/dL 09/12/2024 7:23 PM [facility] RDW-CV 13.8 11.3 - 14.8 % 09/12/2024 7:23 PM [facility] Platelet Count 09/12/2024 7:23 PM [facility] Comment:Platelets clumped on slide but appears adequate. Recommend repeat with a sodium citrate blue top tube. MPV 09/12/2024 7:23 PM [facility] Comment:Unable to report Neutrophil % 68.5 41.0 - 74.0 % 09/12/2024 7:23 PM [facility] Lymphocyte % 21.5 17.0 - 47.0 % 09/12/2024 7:23 PM [facility] Monocyte % 7.3 3.0 - 11.0 % 09/12/2024 7:23 PM [facility] Eosinophil % 2.2 0.0 - 7.0 % 09/12/2024 7:23 PM [facility] Basophil % 0.3 0.0 - 1.6 % 09/12/2024 7:23 PM [facility] Immature Granulocytes % 0.2 0.0 - 1.0 % 09/12/2024 7:23 PM [facility] Neutrophil Absolute 4.45 1.60 - 7.50 x10E9/L 09/12/2024 7:23 PM [facility] Lymphocyte Absolute 1.39 1.00 - 4.40 x10E9/L 09/12/2024 7:23 PM [facility] Monocyte Absolute 0.47 0.15 - 1.00 x10E9/L 09/12/2024 7:23 PM [facility] Eosinophil Absolute 0.14 0.00 - 0.60 x10E9/L 09/12/2024 7:23 PM [facility] Basophil Absolute 0.02 0.00 - 0.13 x10E9/L 09/12/2024 7:23 PM [facility] Blood BLOOD SPECIMEN / Unknown Venipuncture / Unknown 09/12/2024 6:39 PM BIRD KEEPER 09/12/2024 6:45 PM BIRD KEEPER Nacho Clay DO LAB - HEMATOLOGY ORD ERABLES [facility] [address] [place] [address], [facility] [phone] * (ABNORMAL) COMPREHENSIVE METABOLIC PANEL (09/12/2024 6:39 PM BIRD KEEPER) BUN 20 7 - 26 mg/dL 09/12/2024 7:11 PM [facility] Creatinine 0.85 0.56 - 0.96 mg/dL 09/12/2024 7:11 PM [facility] Sodium 142 136 - 145 mmol/L 09/12/2024 7:11 PM [facility] Potassium 4.3 3.5 - 4.5 mmol/L 09/12/2024 7:11 PM [facility] Chloride 107 98 - 107 mmol/L 09/12/2024 7:11 PM [facility] CO2 26 22 - 29 mmol/L 09/12/2024 7:11 PM [facility] Glucose 152(H) 70 - 99 mg/dL 09/12/2024 7:11 PM [facility] Calcium 9.2 8.4 - 10.2 mg/dL 09/12/2024 7:11 PM [facility] Protein Total 7.2 6.0 - 8.3 g/dL 09/12/2024 7:11 PM [facility] Albumin 4.1 3.4 - 5.0 g/dL 09/12/2024 7:11 PM [facility] Bilirubin Total 0.6 0.2 - 1.2 mg/dL 09/12/2024 7:11 PM [facility] Alkaline Phosphatase 76 40 - 150 U/L 09/12/2024 7:11 PM [facility] ALT 14 5 - 55 U/L 09/12/2024 7:11 PM [facility] AST 18 5 - 34 U/L 09/12/2024 7:11 PM [facility] Anion Gap 9 6 - 16 09/12/2024 7:11 PM [facility] BUN/Creatinine Ratio 24(H) 7 - 23 09/12/2024 7:11 PM [facility] Osmolality Calculated 300(H) 275 - 295 mOsm/kg 09/12/2024 7:11 PM [facility] Albumin/Globulin Ratio 1.3 1.1 - 2.3 09/12/2024 7:11 PM [facility] eGFR by CKD-EPI 68(L) >=90 mL/min/1.7 3 m2 09/12/2024 7:11 PM [facility] Blood BLOOD SPECIMEN / Unknown Venipuncture / Unknown 09/12/2024 6:39 PM BIRD KEEPER 09/12/2024 6:45 PM BIRD KEEPER Nacho Clay DO LAB - CHEMISTRY KAITLYNN SWARTZ [facility] Organization Address City/State/[facility] Co de Phone Number [facility] [address] [place] [phone] [phone] * CREATININE - POCT INTERFACED (09/12/2024 6:36 PM BIRD KEEPER) Creatinine POCT 0.54 0.30 - 1.30 mg/dL 09/12/2024 6:37 PM [facility] eGFR >90 >=90 mL/min/1.7 3 m2 09/12/2024 6:37 PM [facility] Blood BLOOD SPECIMEN / Unknown 09/12/2024 6:36 PM BIRD KEEPER 09/12/2024 6:37 PM BIRD KEEPER Nacho Clay DO LAB - POINT OF CARE ORDERABLES Performing Organization Address City/[facility]/ZIP Co de Phone Number [address] [address], [facility] [phone] * INR WHOLE BLOOD - POINT OF CARE (IP) STROKE (09/12/2024 6:33 PM BIRD KEEPER) INR 0.9 0.9 - 1.2 09/12/2024 6:36 PM BIRD KEEPER [facility] Device [id number] 09/12/2024 6:36 PM BIRD KEEPER [facility] [employer] ID [id number] 09/12/2024 6:36 PM BIRD KEEPER [facility] Blood BLOOD SPECIMEN / Unknown 09/12/2024 6:33 PM BIRD KEEPER 09/12/2024 6:36 PM BIRD KEEPER Nacho Clay DO LAB - POINT OF CARE ORDERABLES Performing Organization Address [facility]/ZIP Co de Phone Number [address] [phone], [facility] [phone] * CT BRAIN - Stroke (09/12/2024 6:28 PM BIRD KEEPER) Anatomical Region Laterality Modality Head Computed Tomogra phy 09/12/2024 6:30 PM BIRD KEEPER Impressions 09/12/2024 6:50 PM BIRD KEEPER IMPRESSION: 1.No acute intracranial hemorrhage. 2.Please note that CT is insensitive to nonhemorrhagic strokes and MRI of the brain should be considered, if there is clinical concern for acute cerebral infarction.. Disclaimer: 1.Brain areas including the cerebral sulci, the dural sinuses, the cavernous sinuses, the basilar artery/posterior circulation, the craniocervical junction, and the brain stem, may not be well evaluated on noncontrast CT. MRI of the brain is more sensitive for parenchymal changes related to the above-mentioned brain regions. If there is clinical concern for pathology involving the above-mentioned areas, MRI of the brain is recommended for further evaluation. Results of this exam were communicated with closed loop confirmation to Dr. Cat by Dr. Flores on 09/12/2024 at 6:30 PM with read back comprehension and verification. > Interpreting Provider: Milagros Flores MD on 09/12/2024 6:50 PM Narrative 09/12/2024 6:50 PM BIRD KEEPER PROCEDURE: CT BRAIN STROKE, DATE/TIME OF EXAM: 09/12/2024 6:29 PM, LOCATION [facility] INDICATION: Code Stroke EXAMINATION: Computed tomography (CT) of the head without contrast ADDITIONAL CLINICAL INFORMATION: Ordering Provider Reason For Exam: Code stroke. Technologist Note: None. Additional: None. TECHNIQUE: CT of the head was performed without contrast according to standard protocol. CT dose reduction technique was used, including Automated Exposure Control. COMPARISON: No prior study is available for comparison at the time of this dictation. FINDINGS: No acute intra- or extra-axial fluid collections are identified. There is mild cerebral volume loss with associated ex vacuo ventricular dilatation. The basilar cisterns are patent. No mass effect or midline shift is seen. Scattered foci of hypoattenuation in the bilateral cerebral hemispheres, prominent in the left basal ganglia and the left insula and the right thalamus. The willis-white matter differentiation otherwise appears normal. Periventricular white matter hypoattenuation is indicative of chronic small vessel ischemic disease. There is vascular calcification of the carotid siphons. No acute calvarial fracture is identified. Other than bilateral cataract extractions, the orbits appear normal. There is mild paranasal sinus disease. The mastoid air cells are grossly clear. No soft tissue abnormality is identified. Congenital nonfusion of the posterior arch of C1. Procedure Note Milagros Flores MD - 09/12/2024 PROCEDURE: CT BRAIN STROKE, DATE/TIME OF EXAM: 09/12/2024 6:29 PM, LOCATION [facility] INDICATION: Code Stroke EXAMINATION: Computed tomography (CT) of the head without contrast ADDITIONAL CLINICAL INFORMATION: Ordering Provider Reason For Exam: Code stroke. Technologist Note: None. Additional: None. TECHNIQUE: CT of the head was performed without contrast according to standard protocol. CT dose reduction technique was used, including Automated Exposure Control. COMPARISON: No prior study is available for comparison at the time ofthis dictation. FINDINGS: No acute intra- or extra-axial fluid collections are identified. Thereis mild cerebral volume loss with associated ex vacuo ventriculardilatation. The basilar cisterns are patent. No mass effect or midline shift isseen. Scattered foci of hypoattenuation in the bilateral cerebral hemispheres, prominent in the left basal ganglia and the left insula and the right thalamus. The willis-white matter differentiation otherwise appearsnormal. Periventricular white matter hypoattenuation is indicative of chronicsmall vessel ischemic disease. There is vascular calcification of the carotid siphons. No acute calvarial fracture is identified. Other than bilateral cataract extractions, the orbits appear normal. There is mild paranasal sinus disease. The mastoid air cells are grossly clear. No soft tissue abnormality is identified. Congenital nonfusion of the posterior arch of C1. IMPRESSION: 1.No acute intracranial hemorrhage. 2.Please note that CT is insensitive to nonhemorrhagic strokes and MRIof the brain should be considered, if there is clinical concern for acute cerebral infarction.. Disclaimer: 1.Brain areas including the cerebral sulci, the dural sinuses, the cavernous sinuses, the basilar artery/posterior circulation, the craniocervical junction, and the brain stem, may not be well evaluatedon noncontrast CT. MRI of the brain is more sensitive for parenchymalchanges related to the above-mentioned brain regions. If there is clinicalconcern for pathology involving the above-mentioned areas, MRI of the brain is recommended for further evaluation. Results of this exam were communicated with closed loop confirmation toDr. Cat by Dr. Flores on 09/12/2024 at 6:30 PM with read backcomprehension and verification. > Interpreting Provider: Milagros Flores MD on 09/12/2024 6:50 PM Nacho Clay DO CT ORDERABLES from Last 3 Months Advance Directives * Full Code (Latest Code Status on File) Date Activated Date Inactivated Comments 09/12/2024 6:45 PM 09/14/2024 1:52 PM Care Teams [employer] C[employer] Hand Relationship Specialty Start Date End Date Brianne Ko APRN-CNP [id number] [phone] PCP - General Nurse Practitioner Family 09/12/24
--- OUTSIDE RECORDS SUMMARY | 2024-10-25 18:19 | XMS_ITS | CONTINUITY OF CARE DOCUMENT ---
Author Name dalealli dalealli Address Unknown Organization [facility] Address [address] [place] [address] Phone [phone] Care Team Providers Care Graduate Engineer Name Role Phone Freddy Moran MD Unavailable [phone] ROBER LUX Unavailable [phone] PRATIMA ORDOÑEZ MD Unavailable PROBLEMS Condition Status Date Provider Notes Shortness of breath active Freddy Moran MD Edema active Freddy Moran MD Pulmonary embolism - 2010 active Davey Hinton Atrial fibrillation active Davey Rojas rg Hypothyroidism active Davey Hinton Hypertension active Davey Hinton Venous insufficiency active Davey birch PVD - mild by duplex 02/2020 active [place] Preop cardiovasc. examination active Jodie Meraz ENCOUNTERS Date Type Provider Location Encounter Diag nosis - In-person encounter Office Visit Freddy Moran MD [facility] - In-person encounter Office Visit Freddy Moran MD [facility] - In-person encounter Office Visit Freddy Moran MD [facility] - In-person encounter Office Visit Thierry Niño MD [facility] - In-person encounter Office Visit Freddy Moran MD [facility] Preop cardiovasc. examination - In-person encounter Office Visit Freddy Moran MD [facility] - In-person encounter Office Visit Freddy Moran MD [facility] Venous insufficiencyPVD - mild by duplex 02/2020 VITAL SIGNS Date Observation Value Provider Body Mass Index (Ratio) 37.88 kg/m2 Faith bruce Alina blood pressure, diastolic 87 mm[Hg] Candelaria rosie Barrientos blood pressure, systolic 160 mm[Hg] Ivana vigil Floyd pulse rate 77 /min Joy Floyd oxygen saturation, oximetry 95 % Joy Floyd blood pressure, cuff size large Candelaria rosie Barrientos weight E&M 194 [lb_av] Joymusa Barrientos height E&M 60 [in_i] Joy Barrientos Body Mass Index (Ratio) 37.88 kg/m2 Faith bruce Alina blood pressure, diastolic 79 mm[Hg] Bia nkLogic blood pressure, systolic 147 mm[Hg] Deanna kLog blood pressure, cuff size regular Ja rret blood pressure, diastolic 79 mm[Hg] Ja rret blood pressure, systolic 147 mm[Hg] Ciaran blunt pulse rate 75 /min Britton oxygen saturation, oximetry 96 % respiratory rate E&M 16 /min weight E&M 194 [lb_av] Britton y height E&M 60 [in_i] Britton y Body Mass Index (Ratio) 37.30 kg/m2 Nathaniel Kolb blood pressure, cuff size large Ke rri Mary Carmen blood pressure, diastolic 90 mm[Hg] Ke rri Gruenenfelder blood pressure, systolic 174 mm[Hg] Ker ri Gruenenfelder oxygen saturation, oximetry 96 % Rebecca Gruenenfelder respiratory rate E&M 16 /min Rebecca G ruenenfelder pulse rate 82 /min Rebecca Gruenenfe lder weight E&M 191 [lb_av] Rebecca Gruenenfe lder height E&M 60 [in_i] Rebecca Gruenenfe lder blood pressure, cuff size regular shari Niño MD blood pressure, diastolic 70 mm[Hg] man [place] blood pressure, systolic 130 mm[Hg] m canedlaria [place] pulse rate 80 /min Thierry [place] blood pressure, cuff size regular Erin Griffin height E&M 60 [in_i] Maryerfermín Ann son blood pressure, diastolic 70 mm[Hg] Li nkLogic blood pressure, systolic 126 mm[Hg] Deanna kLogic blood pressure, cuff size large Ke rri Gruenenfelder blood pressure, diastolic 70 mm[Hg] Ke rri Gruenenfelder blood pressure, systolic 126 mm[Hg] Ker ri Gruenenfelder oxygen saturation, oximetry 97 % Rebecca Gruenenfelder respiratory rate E&M 16 /min Rebecca G christienenfelder pulse rate 69 /min Rebecca Gruenenfe lder height E&M 60 [in_i] Rebecca Gruenenfe lder Body Mass Index (Ratio) 33.78 kg/m2 Yao Hinton blood pressure, diastolic 70 mm[Hg] Shahram Gupta blood pressure, systolic 161 mm[Hg] Christa Gupta blood pressure, cuff size regular Shahram Gupta weight E&M 173 [lb_av] Jacqueline campbell pulse rate 72 /min Jacqueline campbell respiratory rate E&M 16 /min Jacqueline Gupta oxygen saturation, oximetry 97 % Jacqueline Gupta height E&M 60 [in_i] Jacqueline campbell Body Mass Index (Ratio) 34.17 kg/m2 Yao Hinton height E&M 60 [in_i] Davey Lundb erg weight E&M 175 [lb_av] Davey Ferrarob erg ALLERGIES No Known Drug Allergies RESULTS Date Observation Value Provider Reference Range Interpretation Location pro brain natriuretic peptide 343 pg/mL [facility] 0-738 calcium, serum 9.5 mg/dL [facility] 8.7-10.3 carbon dioxide, venous blood 27 mmol/L [facility] 20-29 chloride, serum 104 mmol/L [facility] 96-106 potassium, serum 4.1 mmol/L [facility] 3.5-5.2 sodium, serum 146 mmol/L [facility] 134-144 High urea nitrogen/creatinine ratio, serum 31 [facility] 12-28 High eGFR if 93 mL/min/{1 .73_m2} [facility] >59 eGFR if not 81 mL/min/{1 .73_m2} [facility] >59 creatinine, serum 0.71 mg/dL [facility] urea nitrogen, blood 22 mg/dL [facility] blood glucose, random 175 mg/dL [facility] 65-99 High troponin I 0.332 ng/mL [facility] troponin I 0.360 ng/mL [facility] thyroid stimulating hormone, serum <0.015 [facility] thyroxine, serum, free 3.23 ng/dL [facility] LDL cholesterol, serum 66 mg/dL [facility] platelet count 202 10*3/uL [facility] red blood cell distribution width 13.2 % [facility] mean corpuscular hemoglobin concentration, RBC 31.6 g/dL [facility] mean corpuscular hemoglobin, RBC 29.2 pg [facility] mean corpuscular volume, RBC 92.6 fL [facility] hematocrit, blood 32.3 % [facility] hemoglobin, blood 10.2 g/dL [facility] erythrocyte (RBC) count 3.49 10*6/mm3 [facility] leukocyte count, blood 6.4 10*3/mm3 [facility] platelet count 202 10*3/mm3 [facility] carbon dioxide, venous blood 26 mmol/L [facility] protein, total, serum 6.9 g/dL [facility] albumin, serum 3.9 g/dL [facility] bilirubin, serum, total 0.70 mg/dL [facility] alkaline phosphatase, serum 114 1/L [facility] alanine aminotransferase (SGPT), serum 12 1/L [facility] aspartate aminotransferase (SGOT), serum 20 1/L [facility] D-dimer quantitative mcg/mL 1.85 ug/mL [facility] B-type natriuretic peptide 182 pg/mL [facility] blood glucose, random 166 mg/dL [facility] creatinine, serum 0.91 mg/dL [facility] urea nitrogen, blood 27 mg/dL [facility] carbon dioxide, venous blood 23 mmol/L [facility] chloride, serum 103 mmol/L [facility] potassium, serum 3.6 mmol/L [facility] sodium, serum 138 mmol/L [facility] magnesium, serum 1.8 mg/dL [facility] calcium, serum 9.2 mg/dL [facility] blood glucose, random 123 mg/dL [facility] creatinine, serum 0.74 mg/dL [facility] urea nitrogen, blood 22 mg/dL [facility] carbon dioxide, serum, total 26 mmol/L [facility] chloride, serum 105 mmol/L [facility] potassium, serum 3.6 mmol/L [facility] sodium, serum 139 mmol/L [facility] HISTORY OF MEDICATION USE Medication Status Instructions Dates Provider Indications Com ments lisinopril-hydroc hlorothiazide 20-25 mg tablet active Take 1 tablet by mouth once a day Rebecca Lentz rosuvastatin 40 mg tablet active Take 1 tablet by mouth every evening Rebecca Lentz Xarelto 20 mg tablet active TAKE 1 TABLET BY MOUTH ONCE DAILY AT NIGHT Margarita Rushi levothyroxine 150 mcg tablet active Christi Ventimiglia [facility] rosuvastatin 40 mg tablet completed - Rebecca Lentz lisinopril-hydroc hlorothiazide 20-25 mg tablet completed Take 1 tablet by mouth once a day due for follow up - Rebecca Lentz Xarelto 20 mg tablet completed Take 1 tablet by mouth every night - Margarita Rushing Xarelto 20 mg tablet completed TAKE 1 TABLET BY MOUTH ONCE DAILY AT NIGHT - Rebecca Lentz Euthyrox 100 mcg tablet completed - Christi Ventimiglia METAL CHECKER ergocalciferol (vitamin D2) 1,250 mcg (50,000 unit) capsule active Rebecca Lentz Toprol XL 25 mg tablet extended release 24 hr completed tablet by mouth once a day - Christi Ventimiglia METAL CHECKER levothyroxine 150 mcg tablet completed 1 tablet by mouth once a day - Rebecca Lentz lisinopril-hydroc hlorothiazide 20-25 mg tablet completed 1 tablet by mouth once a day - Rebecca Mary Carmen LISINOPRIL-HYDROC HLOROTHIAZIDE 20-25 MG ORAL TABLET completed One tablet daily - Davey Hinton Xarelto 20 mg tablet completed 1 tablet by mouth every night - Tom Villalta simvastatin 20 mg tablet completed 1 tablet by mouth once a day - Christi Ventimiglia [facility] LEVOTHYROXINE SODIUM 150 MCG ORAL TABLET completed ONE TAB. DAILY - Davey Hinton LASIX 20 MG ORAL TABLET completed One tablet daily - Davey Hinton DILTIAZEM HCL ER BEADS 180 MG ORAL CAPSULE EXTENDED RELEASE 24 HOUR completed One capsule daily - Davey Hinton ASPIRIN ADULT LOW DOSE 81 MG ORAL TABLET DELAYED RELEASE completed One Tab By Mouth Daily - Davey Hinton SOCIAL HISTORY Date Observation Value Provider personal history of marijuana use no Freddy Moran MD drug use no Freddy Moran MD alcohol use, average drinks per day social Freddy Moran MD alcohol use yes Freddy Moran MD smoking status Never smoker Freddy Merino personal history of marijuana use no Christi Ventimiglia [facility] drug use no Christi Ventimig elicia [facility] alcohol use, average drinks per day social Christi Ventimiglia [facility] alcohol use yes Christi Ventimig elicia [facility] smoking status Never smoker Christichante Christinam iglia [facility] social history E&M S moking History: P atient has never smoked. Nathaniel Kolb social history reviewed E&M revi ewed - no changes required Nathaniel Kolb smoking status Never smoker Rebecca Harpesther ya smoking status Never smoker Thierry Niño MD social history E&M S moking History: Peterson craven has never smoked. Thierry Niño MD social history reviewed E&M revi ewed - no changes required Thierry Niño MD social history reviewed E&M revi ewed - no changes required Lyudmila Meraz social history reviewed E&M revi ewed - no changes required Freddy Moran MD social history E&M S moking History: Peterson craven has never smoked. Freddy Moran MD smoking status Never smoker Rebecca Bowen ya social history E&M Smoking Histo ry: Peterson craven has never smoked. Davey Hinton social history reviewed E&M revi ewed - no changes required Davey Hinton smoking status Never smoker Jacqueline morales smoking status never smoker Davey page INSURANCE PROVIDERS Payer name Policy type / Coverage type Orange red green party ID [employer] PPO O [id number] ADVANCE DIRECTIVES Name Date DISCUSSED - NO DECISION MADE TREATMENT PLAN Date Name Performer [id number],S, Nathaniel Doreneeder [id number],S, Nathaniel Doreneeder [id number],S,S he does have significant venous reflux in bilateral SFA from duplex in 2019 Nathaniel Aspendi [id number],C, N o SOB Nathanielnelson Moejuancho [id number],C, she has LE edema but no redness. She does have significant venous reflux in bilateral SFA from duplex in 2019. I advised her to wear compression socks and elevate her legs. I discussed possible Venaseal in the future. Nathaniel Moejuancho [id number],S, H er updated medication list for this problem includes: Toprol Xl 25 Mg Tablet Extended Release 24 Hr (Metoprolol succinate) ..... Tablet by mouth once a day Thierry Niño MD [id number],S, Thierry Niño MD [id number],S, S he appears to be feeling better hard to tell if she has venous insuffiency or HFpEF. Thierry Niño MD [id number],S, B P today: 130/70 P rior BP: 126/70 (05/09/2021) Labs Reviewed: C reat: 0.71 (02/18/2020) L DL: 66 (01/12/2020) Her updated medication list for this problem includes: Lisinopril-hydrochlorothiazide 20-25 Mg Tablet (Lisinopril-hydrochlorothiazide) ..... 1 tablet by mouth once a day Toprol Xl 25 Mg Tablet Extended Release 24 Hr (Metoprolol succinate) ..... Tablet by mouth once a day Thierry Niño MD [id number],C,. 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 She is allowed to hold the Xarelto per the surgeon's instructions. H er updated medication list for this problem includes: Lisinopril-hydrochlorothiazide 20-25 Mg Tablet (Lisinopril-hydrochlorothiazide) ..... 1 tablet by mouth once a day Toprol Xl 25 Mg Tablet Extended Release 24 Hr (Metoprolol succinate) ..... Tablet by mouth once a day Lyudmila Meraz [id number],C, H er updated medication list for this problem includes: Toprol Xl 25 Mg Tablet Extended Release 24 Hr (Metoprolol succinate) ..... Tablet by mouth once a day Lyudmila Meraz [id number],C, H er updated medication list for this problem includes: Euthyrox 100 Mcg Tablet (Levothyroxine) Lyudmila Kt [id number],C, P rior BP: 126/70 (05/09/2021) Labs Reviewed: C reat: 0.71 (02/18/2020) L DL: 66 (01/12/2020) Her updated medication list for this problem includes: Lisinopril-hydrochlorothiazide 20-25 Mg Tablet (Lisinopril-hydrochlorothiazide) ..... 1 tablet by mouth once a day Toprol Xl 25 Mg Tablet Extended Release 24 Hr (Metoprolol succinate) ..... Tablet by mouth once a day Lyudmila Kt [id number],CO gus doing well. Denies chest pain or SOB. Continues on current medications. 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 She is allowed to hold the Xarelto per the surgeon's instructions. Lyudmila Meraz [id number],B,No SOB Freddy Moran MD [id number],B, B P today: 126/70 P rior BP: 161/70 (04/19/2020) Labs Reviewed: C reat: 0.71 (02/18/2020) L DL: 66 (01/12/2020) Her updated medication list for this problem includes: Lisinopril-hydrochlorothiazide 20-25 Mg Tablet (Lisinopril-hydrochlorothiazide) ..... 1 tablet by mouth once a day Toprol Xl 25 Mg Tablet Extended Release 24 Hr (Metoprolol succinate) ..... Tablet by mouth once a day Freddy Moran MD [id number],S,S he still does not want intervention for her veins Freddy Moran MD [id number],S,I n NSR today. Her updated medication list for this problem includes: Toprol Xl 25 Mg Tablet Extended Release 24 Hr (Metoprolol succinate) ..... Tablet by mouth once a day Freddy Moran MD Cardiology: H er updated medication list for this problem includes: Levothyroxine 150 Mcg Tablet (Levothyroxine) Freddy Moran MD Cardiology:Remains on xarelto Gi adrian Moran MD Cardiology: B P today: 160/87 P rior BP: 147/79 (12/15/2023) Labs Reviewed: C reat: 0.71 (02/18/2020) L DL: 66 (01/12/2020) Her updated medication list for this problem includes: Lisinopril-hydrochlorothiazide 20-25 Mg Tablet (Lisinopril-hydrochlorothiazide) ..... Take 1 tablet by mouth once a day due for follow up Freddy Moran MD Cardiology:Venous du plex showed bilateral insufficiency of GSVs. We discussed alternatives of conservative management or intervention, she would like conservative management. Freddy Moran MD Cardiology:Venous du plex showed bilateral insufficiency of GSVs. We discussed alternatives of conservative management or intervention, she would like conservative management. e ncouraged compression stockings Freddy Moran MD Cardiology:Echo show ed EF 55% with diastolic dysfunction H er updated medication list for this problem includes: Lisinopril-hydrochlorothiazide 20-25 Mg Tablet (Lisinopril-hydrochlorothiazide) ..... Take 1 tablet by mouth once a day due for follow up Freddy Moran MD Cardiology:on replac ement therapy T he following medications were removed from the medication list: Euthyrox 100 Mcg Tablet (Levothyroxine) Her updated medication list for this problem includes: Levothyroxine 150 Mcg Tablet (Levothyroxine) Christi Ventimiglia [facility] Cardiology:noted on last venous doppler w ill repeat venous doppler as continued LE edema e ncouraged compression Christi Ventimiglia [facility] Cardiology:BP 147/79 continue presesnt medication regimen c ontinue pressent medications T he following medications were removed from the medication list: Toprol Xl 25 Mg Tablet Extended Release 24 Hr (Metoprolol succinate) ..... Tablet by mouth once a day Her updated medication list for this problem includes: Lisinopril-hydrochlorothiazide 20-25 Mg Tablet (Lisinopril-hydrochlorothiazide) ..... Take 1 tablet by mouth once a day due for follow up Christi Ocampoguillermodiane [facility] Cardiology:last repo rt in 2009 r emains on xarelto will hold d/t hematuria m ay need prophylatic dosing Christichante Pagan [facility] Cardiology:in NSR to day a ppears to have been NSR on last EKG as well w ill update tele to look at afib burden as holding xarelto d/t hematuria The following medications were removed from the medication list: Toprol Xl 25 Mg Tablet Extended Release 24 Hr (Metoprolol succinate) ..... Tablet by mouth once a day Christi Ej [facility] Cardiology Nathaneilnelson Kolb Cardiology Nathaniel di Cardiology:She does have significant venous reflux in bilateral SFA from duplex in 2019 Nathanielnelson Kolb [facility]: she has LE edema but no redness. She does have significant venous reflux in bilateral SFA from duplex in 2019. I advised her to wear compression socks and elevate her legs. I discussed possible Venaseal in the future. Nathaniel Kolb Cardiology: H er updated medication list for this problem includes: Toprol Xl 25 Mg Tablet Extended Release 24 Hr (Metoprolol succinate) ..... Tablet by mouth once a day Thierry Niño MD Cardiology Thierry Niño MD Cardiology: S he appears to be feeling better hard to tell if she has venous insuffiency or HFpEF. Thierry Niño MD Cardiology: B P today: 130/70 P rior BP: 126/70 (05/09/2021) Labs Reviewed: C reat: 0.71 (02/18/2020) L DL: 66 (01/12/2020) Her updated medication list for this problem includes: Lisinopril-hydrochlorothiazide 20-25 Mg Tablet (Lisinopril-hydrochlorothiazide) ..... 1 tablet by mouth once a day Toprol Xl 25 Mg Tablet Extended Release 24 Hr (Metoprolol succinate) ..... Tablet by mouth once a day Thierry Niño MD Cardiology:. 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 She is allowed to hold the Xarelto per the surgeon's instructions. H er updated medication list for this problem includes: Lisinopril-hydrochlorothiazide 20-25 Mg Tablet (Lisinopril-hydrochlorothiazide) ..... 1 tablet by mouth once a day Toprol Xl 25 Mg Tablet Extended Release 24 Hr (Metoprolol succinate) ..... Tablet by mouth once a day Lyudmila Meraz Cardiology: H er updated medication list for this problem includes: Toprol Xl 25 Mg Tablet Extended Release 24 Hr (Metoprolol succinate) ..... Tablet by mouth once a day Lyudmila Meraz Cardiology: H er updated medication list for this problem includes: Euthyrox 100 Mcg Tablet (Levothyroxine) Lyudmila Meraz Cardiology: P rior BP: 126/70 (05/09/2021) Labs Reviewed: C reat: 0.71 (02/18/2020) L DL: 66 (01/12/2020) Her updated medication list for this problem includes: Lisinopril-hydrochlorothiazide 20-25 Mg Tablet (Lisinopril-hydrochlorothiazide) ..... 1 tablet by mouth once a day Toprol Xl 25 Mg Tablet Extended Release 24 Hr (Metoprolol succinate) ..... Tablet by mouth once a day Lyudmila Meraz Cardiology:Overall d oing well. Denies chest pain or SOB. Continues on current medications. 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 She is allowed to hold the Xarelto per the surgeon's instructions. Lyudmila Meraz Cardiology Follow up :No SOB Freddy Moran MD Cardiology Follow up : B P today: 126/70 P rior BP: 161/70 (04/19/2020) Labs Reviewed: C reat: 0.71 (02/18/2020) L DL: 66 (01/12/2020) Her updated medication list for this problem includes: Lisinopril-hydrochlorothiazide 20-25 Mg Tablet (Lisinopril-hydrochlorothiazide) ..... 1 tablet by mouth once a day Toprol Xl 25 Mg Tablet Extended Release 24 Hr (Metoprolol succinate) ..... Tablet by mouth once a day Freddy Moran MD Cardiology Follow up :She still does not want intervention for her veins Freddy Moran MD Cardiology Follow up :In NSR today. Her updated medication list for this problem includes: Toprol Xl 25 Mg Tablet Extended Release 24 Hr (Metoprolol succinate) ..... Tablet by mouth once a day Freddy Moran MD [facility] hospital follow up:Her updated medication list for this problem includes: Levothyroxine Sodium 150 Mcg Oral Tablet (Levothyroxine sodium) ..... One tablet daily [facility] follow up:BP today: 161/70 Her updated medication list for this problem includes: Lisinopril-hydrochlorothiazide 20-25 Mg Oral Tablet (Lisinopril-hydrochlorothiazide) ..... One tablet daily [facility] follow up:JOHAN's showed mild disease. [facility] follow up:Venous duplex showed venous insufficiency, but she is not interested in intervention at this time. [facility] follow up:Venous duplex showed venous insufficiency, but she is not interested in intervention at this time. [facility] follow up:ProBNP was 343. COVID-19 antibodies were nagtive. Echo showed normal EF and LAE. Pt had an episode of AFib treated at [facility] in [place] and says she had a stress test there. [facility] follow up:Pt had an episode of AFib treated at [facility] in [place] and says she had a stress test there. She's in sinus bradycardia today. Will obtain her records. Recommending a home sleep study. [facility] Telehealth:Her updat ed medication list for this problem includes: Lisinopril-hydrochlorothiazide 20-25 Mg Oral Tablet (Lisinopril-hydrochlorothiazide) ..... One tablet daily Davey [facility] Telehealth:Her [facility] ed medication list for this problem includes: Levothyroxine Sodium 150 Mcg Oral Tablet (Levothyroxine sodium) ..... One tablet daily [facility] Telehealth:Orders: V enous Doppler Bilateral LE - Reflux (CPT-24325) A rterial Duplex Bi-Lower EX (CPT-03046) [facility] Telehealth:Orders: C omplete Echo (CPT-60935) B ASIC METABOLIC PANEL W/EGFR (39745) P ROBNP, N TERMINAL ([id number]) [facility] Telehealth:Pt had a recent admission to [facility]. She presented with chest pain, SOB and palpitations and was found to be in AFib with RVR. She was treated with IV Cardizem and converted to NSR. Also started on Xarelto. Over all feeling well but did have an episode of palpitations at home. Orders: M obile Cardiac Tele (CPT-79829) C omplete Echo (CPT-15509) S leep Study Home (CPT-67902) Davey Ferraroberg Date Name Microalb/Creatinine Urine, Random PROBNP, N TERMINAL Holter Monitor 48 hr Venous Doppler Bilat eral LE - Reflux Complete Echo RPM (remote patient monitoring) B TYPE NATRIURETIC P EPTIDE (BNP) BASIC METABOLIC PANE L W/EGFR EKG Complete Echo Sleep Study Home PROBNP, N TERMINAL BASIC METABOLIC PANE L W/EGFR Covid Antibody Igg Covid Antibody IgA ( LC) Covid Antibody IgM ( LC) Arterial Duplex Bi-L ower EX Venous Doppler Bilat eral LE - Reflux Sleep Study Home Complete Echo Mobile Cardiac Tele HISTORY OF PROCEDURES Procedure Date Procedure Name Provider Procedure Notes S tatus EKG Freddy Moran MD completed EKG Freddy Moran MD completed EKG Freddy Moran MD completed Event Monitor Chase Chen [facility] ed
--- OUTSIDE RECORDS SUMMARY | 2024-10-25 18:19 | XMS_ITS | Encounter Summary ---
Author Organization [facility] Address [address] [place] [address] Care Team Providers Care Camp Maintenance Supervisor Name Role Phone Brianne Ko NP Primary Care Provider [phone] Encounter Details Date Type Department Care Team (Late st Contact Info) Description 04/13/2020 Hospital Follow-up Call [facility] Telemetry Unit [address] [place] [address] Bethany Morocho RN Social History Tobacco Use Types Packs/Day Years [...] on file Sexual Orientation Not on file COVID-19 Exposure Response Date Recorded In the last month, have you been in contact with someone who was confirmed or suspected to have Coronavirus / COVID-19? No / Unsure 04/10/2020 7:28 PM CDT documented as of this encounter Functional Status * RETIRED Are you deaf or do you have serious difficulty hearing Answer Date of Assessment Author Status No 04/10/2020 7:31 PM CDT Activ e * RETIRED Are you blind or do you have serious difficulty seeing, even when wearing glasses? Answer Date of Assessment Author Status No 04/10/2020 7:31 PM CDT Activ e * Do you have serious difficulty walking or climbing stairs? Answer Date of Assessment Author Status No 04/10/2020 7:31 PM CDT Cooper Iraheta R N Active * Do you have difficulty dressing or bathing? Answer Date of Assessment Author Status No 04/10/2020 7:31 PM CDT Cooper Iraheta R N Active * Because of a physical, mental, or emotional condition, do you have difficulty doing errands alone such as visiting a doctor's office or shopping? Answer Date of Assessment Author Status No 04/10/2020 7:31 PM CDT Cooper Iraheta R N Active documented as of this encounter Mental Status * Because of a physical, mental, or emotional condition, do you have serious difficulty concentrating, remembering, or making decisions? Answer Entry Date Author Status No 04/10/2020 7:31 PM CDT Cooper Iraheta R N Active documented in this encounter Plan of Treatment Not on file documented as of this encounter Visit Diagnoses Not on filedocumented in this encounter Care Teams Camp Maintenance Supervisor Relationship Specialty Start Date End Date Brianne Ko NP [address] [id number] PCP - General NURSE PRACTITIONER 04/10/20 documented as of this encounter
--- OUTSIDE RECORDS SUMMARY | 2024-10-25 18:19 | XMS_ITS ---
Author Organization [facility] Address [address] [id number] [place] [address] Care Team Providers Care Pesticide Chemist Name Role Phone Isaiah Kevin Unavailable [phone] Encounters Encounter Location Date Provider Diagnosis [place] [facility] [address] [facility] [address] [place] [address] 10/01/2024 Kevin Colon PLAN OF TREATMENT Next Appt Details Provider Name:Kevin Colon , 2024 01:15:00 PM, [address] [facility], [facility] [address], [place], [address], Progress Notes * Rustam BOXEsmeOB:1940 ([age] yo F)Acc No.[id number]:10/01/2024 Progress Notes Patient: Wendy BOX Provider: MD SCOT, Stephanie.Lenny.C.P, F.A.S.N. :1940 Age:83 Y Sex:Female Date:10/01/2024 Address:[address] [place] [address] Subjective: * Chief Complaints: * * Medical History: Objective: Assessment: Plan: * Treatment: * Billing Information: * Visit Code: * Procedure Codes: * SHANKER Sign off status: Pending * Provider: MD SCOT, Stephanie.Lenny.C.P, F.A.S.N. Date: 10/01/2024
--- OUTSIDE RECORDS SUMMARY | 2024-10-25 18:19 | XMS_ITS | Patient Health Record ---
Author Organization [facility] Address [address] [place] [address] Care Team Providers Care Sales Service Supervisor Name Role Phone Kevin Colon Unavailable [phone] REASON FOR REFERRAL No Information MEDICATIONS Medication SIG (Take, Route, Frequency, Duration) Notes Start Date End Date Status Ergocalciferol 1.25 MG (33038 UT) 1 capsule Orally Once a week for 90 day(s) 01/30/2024 10/25/2024 Active Calcitriol 0.25 MCG 1 capsule Orally Onc e a day for 90 day(s) 01/30/2024 10/25/2024 Active Losartan Potassium 25 MG 1 tablet Orally Once a day for 90 day(s) 01/30/2024 Active PROBLEMS Problem Type ICD Code Onset Dates Problem Status W/U Status Risk SNOMED Code Notes Problem Secondary hyperparathyroid ism, not elsewhere classified (E21.1) Active confirmed Secondary hyperparathyroidism (80705705) Problem Essential (primary) hypertension (I10) Active confirmed Essential hypertension (00513657) Problem Renal osteodystrophy (N25.0) Active confirmed Renal osteodyst rophy (14066631) Problem Edema, unspecified (R60.9) Active confirmed Edema (46582715) Problem Proteinuria, unspecified (R80.9) Active confirmed Proteinuria (98373695) Problem Chronic kidney disease, stage 3 unspecified (N18.30) Active confirmed Chronic kidney disease stage 3 (disorder) (218169563) Problem Chronic kidney disease, stage 3a (N18.31) Active confirmed Chronic kidney disease stage 3A (disorder) (442270211) Encounters Encounter Location Date Provider Diagnosis [facility] [address] [facility] [address] [place] [address] 01/02/2024 Kevin Colon Chronic kidney disea se, stage 3a N18.31 ; Essential (primary) hypertension I10 ; Edema, unspecified R60.9 ; Renal osteodystrophy N25.0 ; Proteinuria, unspecified R80.9 and Secondary hyperparathyroidism, not elsewhere classified E21.1 [facility] [address] [place] [address] 01/30/2024 Kevin Colon Chronic kidney disea se, stage 3a N18.31 ; Essential (primary) hypertension I10 ; Edema, unspecified R60.9 ; Renal osteodystrophy N25.0 ; Proteinuria, unspecified R80.9 and Secondary hyperparathyroidism, not elsewhere classified E21.1 [facility] [address] [place] [address] 04/23/2024 Kevin Colon Chronic kidney disea se, stage 3a N18.31 ; Essential (primary) hypertension I10 ; Edema, unspecified R60.9 ; Renal osteodystrophy N25.0 ; Proteinuria, unspecified R80.9 and Secondary hyperparathyroidism, not elsewhere classified E21.1 [facility] [address] [place] [address] 07/02/2024 Kevin Colon Chronic kidney disea se, stage 3 unspecified N18.30 ; Essential (primary) hypertension I10 ; Edema, unspecified R60.9 ; Renal osteodystrophy N25.0 ; Proteinuria, unspecified R80.9 and Secondary hyperparathyroidism, not elsewhere classified E21.1 [facility] [address] [place] [address] 10/01/2024 Kevin Colon [facility] [address] [place] [address] 01/30/2024 Kevin Colon ASSESSMENTS Encounter Date Diagnosis Assessment Notes Treatment Notes Treatment Clinical Notes Section Notes 01/02/2024 Chronic kidney disease, stage 3a (ICD-10 - N18.31) 01/30/2024 Chronic kidney disease, stage 3a (ICD-10 - N18.31) 04/23/2024 Chronic kidney disease, stage 3a (ICD-10 - N18.31) 07/02/2024 Chronic kidney disease, stage 3 unspecified (ICD-10 - N18.30) 07/02/2024 Essential (primary) hypertension (ICD-10 - I10) 04/23/2024 Essential (primary) hypertension (ICD-10 - I10) 01/30/2024 Essential (primary) hypertension (ICD-10 - I10) 01/02/2024 Essential (primary) hypertension (ICD-10 - I10) 01/02/2024 Edema, unspecified (ICD-10 - R60.9) 04/23/2024 Edema, unspecified (ICD-10 - R60.9) 01/30/2024 Edema, unspecified (ICD-10 - R60.9) 07/02/2024 Edema, unspecified (ICD-10 - R60.9) 07/02/2024 Renal osteodystrophy (ICD-10 - N25.0) 04/23/2024 Renal osteodystrophy (ICD-10 - N25.0) 01/02/2024 Renal osteodystrophy (ICD-10 - N25.0) 01/30/2024 Renal osteodystrophy (ICD-10 - N25.0) 01/02/2024 Proteinuria, unspecified (ICD-10 - R80.9) 04/23/2024 Proteinuria, unspecified (ICD-10 - R80.9) 01/30/2024 Proteinuria, unspecified (ICD-10 - R80.9) 07/02/2024 Proteinuria, unspecified (ICD-10 - R80.9) 01/02/2024 Secondary hyperparathyroidism , not elsewhere classified (ICD-10 - E21.1) 07/02/2024 Secondary hyperparathyroidism , not elsewhere classified (ICD-10 - E21.1) 04/23/2024 Secondary hyperparathyroidism , not elsewhere classified (ICD-10 - E21.1) 01/30/2024 Secondary hyperparathyroidism , not elsewhere classified (ICD-10 - E21.1) PLAN OF TREATMENT Next Appt Details Provider Name:Kevin Colon , 2024 01:15:00 PM, [address], [facility] [address], [place], [address],
--- OUTSIDE RECORDS SUMMARY | 2024-10-25 18:19 | XMS_ITS | Patient Health Summary ---
Author Organization [facility] [employer] Address [address] [place] [address] Care Team Providers Care Store Team Member Name Role Phone Brianne Ko SANTOSH-BARRERA Primary Care Provider [phone] Note from [facility],non-owned Affiliates and Associated Physician Practices is amultiple site organization consisting of ambulatory clinics and hospital sitesin [place], [place], [place] and [place]. This disclosure is being madepursuant to the Care Everywhere program and may not contain all information available regarding this patient. Last updated 18.[facility] Allergies No known active allergies Medications * Be aware that medications may not be up to date on this document. Alwaysverify current medications with the patient. * potassium chloride 20 MEQ/15ML (10%) solution(Started 09/14/2024) Take 7.5 mL by mouth once daily 3 refills by 09/14/2025 * calcitriol (Rocaltrol) 0.25 MCG capsule(Started 09/14/2024) Take 1 (one) capsule by mouth once daily * levothyroxine (Synthroid) 100 MCG tablet(Started 09/14/2024) Take 1 (one) tablet by mouth daily before breakfast * rivaroxaban (Xarelto) 20 MG tablet(Started 09/14/2024) Take 1 (one) tablet by mouth daily with food * rosuvastatin (Crestor) 40 MG tablet(Started 09/14/2024) Take 1 (one) tablet by mouth once daily Active Problems Problem Noted Date Diagnosed Date [...] Comments Blood Pressure 172/72 09/14/2024 11:16 AM MARINE RIGGER Pulse 88 09/14/2024 11:17 AM MARINE RIGGER Temperature 36.7 C (98 F) 09/13/2024 10:47 PM MARINE RIGGER Respiratory Rate 18 09/14/2024 11:17 AM MARINE RIGGER Oxygen Saturation 95% 09/14/2024 11:17 AM MARINE RIGGER Inhaled Oxygen Concentration - - Weight 88.9 kg (196 lb) 09/13/2024 9:36 AM MARINE RIGGER Height 162.6 cm (5' 4 ) 09/13/2024 8:32 PM MARINE RIGGER Body Mass Index 37.03 09/13/2024 9:36 AM MARINE RIGGER Procedures * CARDIAC EKG ORDER(Performed 09/14/2024) * CT HEAD WO CONTRAST(Performed 09/14/2024) Performed for Transient alteration of awareness, Facial droop * CBC W/O DIFFERENTIAL(Performed 09/14/2024) * BASIC METABOLIC PANEL (CALCIUM TOTAL)(Performed 09/14/2024) * GLUCOSE - POINT OF CARE(Performed 09/13/2024) * GLUCOSE - POINT OF CARE(Performed 09/13/2024) * TROPONIN-I HIGH SENSITIVE(Performed 09/13/2024) Performed for Aphasia * GLUCOSE - POINT OF CARE(Performed 09/13/2024) * BLOOD TYPE VERIFICATION(Performed 09/13/2024) * TROPONIN-I HIGH SENSITIVE REFLEX 1HOUR(Performed 09/13/2024) * URINALYSIS W/MICROSCOPIC NO CULTURE(Performed 09/13/2024) * HEMOGLOBIN A1C(Performed 09/13/2024) * LIPID PROFILE(Performed 09/13/2024) * CBC W/O DIFFERENTIAL(Performed 09/13/2024) * BASIC METABOLIC PANEL (CALCIUM TOTAL)(Performed 09/13/2024) * T4 FREE(Performed 09/12/2024) Performed for Aphasia, Transient alteration of awareness, Facial droop, Hypothyroidism, unspecifiedtype * TSH REFLEX FREE T4(Performed 09/12/2024) Performed for Aphasia, Transient alteration of awareness, Facial droop, Hypothyroidism, unspecifiedtype * PHOSPHORUS BLOOD(Performed 09/12/2024) Performed for Aphasia, Transient alteration of awareness * MAGNESIUM BLOOD(Performed 09/12/2024) Performed for Aphasia, Transient alteration of awareness * TROPONIN-I HIGH SENSITIVE BASELINE + 1HR(Performed 09/12/2024) * EKG 12-LEAD(Performed 09/12/2024) Performed for Aphasia, Transient alteration of awareness * XR CHEST 1VW PORTABLE(Performed 09/12/2024) Performed for Aphasia, Transient alteration of awareness * CT ANGIO BRAIN NECK STROKE(Performed 09/12/2024) Performed for Aphasia, Transient alteration of awareness * TYPE + SCREEN PANEL(Performed 09/12/2024) * PT-INR [facility](Performed 09/12/2024) * COMPREHENSIVE METABOLIC PANEL(Performed 09/12/2024) * CBC W AUTO DIFFERENTIAL(Performed 09/12/2024) * CREATININE - POCT INTERFACED(Performed 09/12/2024) * INR WHOLE BLOOD - POINT OF CARE (IP) STROKE(Performed 09/12/2024) * CT BRAIN STROKE(Performed 09/12/2024) Performed for Aphasia, Transient alteration of awareness Results * CARDIAC EKG ORDER (09/14/2024 1:29 PM MARINE RIGGER) Narrative 09/14/2024 1:29 PM MARINE RIGGER Ordered by an unspecified provider. Scanned Document CARDIAC SERVICES ORD ERABLES * CT Head Wo Contrast (09/14/2024 6:00 AM MARINE RIGGER) Anatomical Region Laterality Modality Head Computed Tomogra phy 09/14/2024 6:00 AM MARINE RIGGER Impressions 09/14/2024 10:22 AM MARINE RIGGER IMPRESSION: 1.No acute intracranial hemorrhage, midline shift, or significant mass effect. > Dictated by Jaswant Anaya MD (Flight Engineer Performance Qualified) I, Luan Rouse MD have personally reviewed and interpreted this examination/study. > Interpreting Provider: Luan Rouse MD on 09/14/2024 10:22 AM Narrative 09/14/2024 10:22 AM MARINE RIGGER PROCEDURE: CT HEAD WO CONTRAST, DATE/TIME OF EXAM: 09/14/2024 6:00 AM, LOCATION [facility] INDICATION: R40.4: Transient alteration of awareness R29.810: [...] DATE/TIME OF EXAM: 09/14/2024 6:00 AM, LOCATION [facility] INDICATION: R40.4: Transient alteration of awareness R29.810: [...] effect. > Dictated by Jaswant Anaya MD (Flight Engineer Performance Qualified) I, Luan Rouse MD have personally reviewed and interpreted this examination/study. > Interpreting Provider: Luan Rouse MD on 09/14/2024 10:22 AM Lauri Girard MD CT ORDERABLES * (ABNORMAL) CBC W/O DIFFERENTIAL (09/14/2024 2:15 AM MARINE RIGGER) Only the most recent of2 resultswithin the time period is included. WBC 11.4(H) 4.0 - 10.7 x10E9/L 09/14/2024 3:14 AM [facility] RBC Count 4.80 3.90 - 5.20 x10E12/L 09/14/2024 3:14 AM [facility] Hemoglobin 14.4 11.9 - 15.8 g/dL 09/14/2024 3:14 AM [facility] Hematocrit 43.4 34.8 - 46.1 % 09/14/2024 3:14 AM [facility] MCV 90.4 80.0 - 98.0 fL 09/14/2024 3:14 AM [facility] MCH 30.0 26.7 - 33.6 pg 09/14/2024 3:14 AM [facility] MCHC 33.2 31.7 - 36.3 g/dL 09/14/2024 3:14 AM [facility] RDW-CV 13.9 11.3 - 14.8 % 09/14/2024 3:14 AM [facility] Platelet Count 09/14/2024 3:14 AM [facility] Comment:Platelets clumped on slide but appears decreased. Recommend repeat with a sodium citrate blue top tube. MPV 09/14/2024 3:14 AM MARINE RIGGER [facility] Comment:Unable to report Blood BLOOD SPECIMEN / Unknown Venipuncture / Unknown 09/14/2024 2:15 AM MARINE RIGGER 09/14/2024 2:40 AM MARINE RIGGER Nacho Clay DO LAB - HEMATOLOGY ORD ERABLES [facility] [address] [place] [address], [facility] [phone] * (ABNORMAL) BASIC METABOLIC PANEL (CALCIUM TOTAL) (09/14/2024 2:15 AM MARINE RIGGER) Only the most recent of2 resultswithin the time period is included. BUN 17 7 - 26 mg/dL 09/14/2024 3:07 AM [facility] Creatinine 0.90 0.56 - 0.96 mg/dL 09/14/2024 3:07 AM [facility] Sodium 142 136 - 145 mmol/L 09/14/2024 3:07 AM [facility] Potassium 3.4(L) 3.5 - 4.5 mmol/L 09/14/2024 3:07 AM [facility] Chloride 104 98 - 107 mmol/L 09/14/2024 3:07 AM [facility] CO2 23 22 - 29 mmol/L 09/14/2024 3:07 AM [facility] Glucose 205(H) 70 - 99 mg/dL 09/14/2024 3:07 AM [facility] Calcium 9.7 8.4 - 10.2 mg/dL 09/14/2024 3:07 AM [facility] Anion Gap 15 6 - 16 09/14/2024 3:07 AM [facility] BUN/Creatinine Ratio 19 7 - 23 09/14/2024 3:07 AM [facility] Osmolality Calculated 301(H) 275 - 295 mOsm/kg 09/14/2024 3:07 AM [facility] eGFR by CKD-EPI 63(L) >=90 mL/min/1.7 3 m2 09/14/2024 3:07 AM [facility] Blood BLOOD SPECIMEN / Unknown Venipuncture / Unknown 09/14/2024 2:15 AM MARINE RIGGER 09/14/2024 2:40 AM MARINE RIGGER Nacho Clay DO LAB - CHEMISTRY ORDE SHERIDAN Performing Organization Address [facility]/ZIP Co de Phone Number [address] [address], [place] [phone] * (ABNORMAL) GLUCOSE - POINT OF CARE (09/13/2024 10:46 PM MARINE RIGGER) Only the most recent of3 resultswithin the time period is included. Glucose WB/POC 133(H) 70 - 99 mg/dL 09/13/2024 10:[address] [facility] Specimen Type Cap Fingerstick 2023 10:[address] [facility] Blood BLOOD SPECIMEN / Unknown 09/13/2024 10:46 PM MARINE RIGGER 09/13/2024 10:47 PM MARINE RIGGER Lauri Girard MD LAB - POINT OF CARE ORDERABLES Performing Organization Address [facility]/ZIP Co de Phone Number [address] [address], [place] [phone] * (ABNORMAL) TROPONIN-I HIGH SENSITIVE (09/13/2024 1:22 PM MARINE RIGGER) [facility] Troponin I High Sensitive 18(H) <=14 ng/L 09/13/2024 2:[address] [facility] Blood BLOOD SPECIMEN / Unknown Venipuncture / Unknown 09/13/2024 1:22 PM MARINE RIGGER 09/13/2024 1:33 PM MARINE RIGGER Lauri Girard MD LAB - CHEMISTRY ORDE SHERIDAN Performing Organization Address [facility]/ZIP Co de Phone Number [address] [address], [place] [phone] * (ABNORMAL) TROPONIN-I HIGH SENSITIVE REFLEX 1HOUR (09/13/2024 8:49 AM MARINE RIGGER) Troponin I High Sensitive 20(H) <=14 ng/L 09/13/2024 9:34 AM [facility] Delta Troponin I HS 09/13/2024 9:34 AM [facility] Comment:Delta value intentio turner not calculated. Baseline to 1 hour specimen collection interval exceeded. Blood BLOOD SPECIMEN / Unknown Venipuncture / Unknown 09/13/2024 8:49 AM MARINE RIGGER 09/13/2024 8:55 AM MARINE RIGGER Nacho Clay LAB - CHEMISTRY ORDE RABLES Performing Organization Address City/[facility]/ZIP Co de Phone Number [facility] [address] [place] [address], [facility] [phone] * BLOOD TYPE VERIFICATION (09/13/2024 8:49 AM MARINE RIGGER) ABO Rh A POS 09/13/2024 9:4 9 AM [facility] Blood Bank BLOOD SPECIMEN / Unknown Venipuncture / Unknown 09/13/2024 8:49 AM MARINE RIGGER 09/13/2024 9:05 AM MARINE RIGGER Nacho Clay LAB - BLOOD BANK ORD ERABLES Performing Organization Address [facility]/ZIP Co de Phone Number [facility] [address] [place] [address], [facility] [phone] * (ABNORMAL) URINALYSIS W/MICROSCOPIC NO CULTURE (09/13/2024 8:45 AM MARINE RIGGER) Color UA Rowena(A) Straw, Yellow 09/13/2024 9:13 AM [facility] Clarity UA Cloudy(A) Clear 09/13/2024 9:13 AM [facility] Specific [place] UA 1.034(H) 1.005 - 1.030 09/13/2024 9:13 AM [facility] pH UA 7.0 5.0 - 8.0 pH 09/13/2024 9:13 AM [facility] Protein UA 2+(A) Negative 09/13/2024 9:13 AM [facility] Glucose UA Negative Negative 09/13/2024 9:13 AM [facility] Ketone UA Negative Negative 09/13/2024 9:13 AM [facility] Bilirubin UA Negative Negative 09/13/2024 9:13 AM [facility] Blood UA 1+(A) Negative 09/13/2024 9:13 AM [facility] Nitrite UA Negative Negative 09/13/2024 9:13 AM [facility] Leukocyte Esterase Trace(A) Negative 09/13/2024 9:13 AM [facility] Urobilinogen UA 2.0(A) Negative mg/dL 09/13/2024 9:13 AM [facility] RBC UA 21-50(A) None Seen, 0-2, 3-5 /HPF 09/13/2024 9:13 AM [facility] WBC UA 6-10(A) None Seen, 0-5 /HPF 09/13/2024 9:13 AM [facility] Bacteria UA 3+(A) None /HPF 09/13/2024 9:13 AM [facility] Squamous Epithelial Cells UA 3-5 None Seen, 0-2, 3-5 /HPF 09/13/2024 9:13 AM [facility] Mucus UA 1+ /LPF 09/13/2024 9:13 AM [facility] Amorphous Crystals Few(A) None /HPF 09/13/2024 9:13 AM [facility] Urine URINE SPECIMEN OBTAINED BY CLEAN CATCH PROCEDURE / Unknown Collection / Unknown 09/13/2024 8:45 AM MARINE RIGGER 09/13/2024 8:55 AM [facility] - 09/13/2024 9:13 AM [facility] Nacho Clay DO LAB - URINALYSIS ORD ERABLES [facility] [address] [place] [address], [facility] [phone] * (ABNORMAL) HEMOGLOBIN A1C (09/13/2024 6:00 AM [facility]) Hemoglobin A1c 6.8(H) <=5.6 % 09/14/2024 9:53 AM [facility] Estimated Average Glucose 148 mg/dL 09/14/2024 9:53 AM [facility] Comment: HbA1c Interpretation: Normal : < 5.7% Pre-diabetes: 5.7-6.4% Diabetes: Equal to or greater than 6.5% Test results diagnostic of diabetes should be repeated for confirmation. Treatment target values recommended by ADA and other clinical organizations should be used to evaluate metabolic control in patients. Reference: [place] Diabetes Association, Standards of Care in Diabetes -2020 In patients 70 years and older consider HbA1c target range of 7.0-7.5% (Reference: Neel Galvez et al. JAMDA. 2012) The Sebia assay for the measurement of HbA1c is a National Glycohemoglobin Standardization Program (NGSP) certified method. Blood BLOOD SPECIMEN / Unknown Venipuncture / Unknown 09/13/2024 6:00 AM MARINE RIGGER 09/13/2024 8:53 PM MARINE RIGGER Kareem Bagley MD LAB - CHEMISTRY KAITLYNN SWARTZ [facility] Organization Address City/State/ZIP Co de Phone Number [address] [address], [facility] [phone] * (ABNORMAL) LIPID PROFILE (09/13/2024 6:00 AM MARINE RIGGER) Cholesterol Total 170 <200 mg/dL 09/13/2024 6:49 AM [facility] HDL 55 >40 mg/dL 09/13/2024 6:49 AM [facility] Comment: ATP III Classification of HDL Cholesterol: <40 mg/dL: Considered a major risk factor. >60 mg/dL: Considered a negative risk factor. LDL Calculated 82 <100 mg/dL 09/13/2024 6:49 AM [facility] Comment: ATP III Classification of LDL Cholesterol: <100 mg/dL: Optimal 100 - 129 mg/dL: Near Optimal/Above Optimal 130 - 159 mg/dL: Borderline High 160 - 189 mg/dL: High >190 mg/dL: Very High Triglycerides 163(H) <150 mg/dL 09/13/2024 6:49 AM [facility] Comment: ATP III Classification of Triglycerides: <150 mg/dL: Normal 150 - 199 mg/dL: Borderline High 200 - 400 mg/dL: High >500 mg/dL: Very High Blood BLOOD SPECIMEN / Unknown Venipuncture / Unknown 09/13/2024 6:00 AM MARINE RIGGER 09/13/2024 6:27 AM MARINE RIGGER Nacho Claudio Clay DO LAB - CHEMISTRY MILKAAshly SHERIDAN Performing Organization Address City/[facility]/ZIP Co de Phone Number [address] [address], [facility] [phone] * TROPONIN-I HIGH SENSITIVE BASELINE + 1HR (09/12/2024 7:10 PM MARINE RIGGER) Troponin I High Sensitive 12 <=14 ng/L 09/12/2024 7:[address] [facility] Blood BLOOD SPECIMEN / Unknown Venipuncture / Unknown 09/12/2024 7:10 PM MARINE RIGGER 09/12/2024 7:30 PM MARINE RIGGER Nacho Clay DO LAB - CHEMISTRY KAITLYNN SWARTZ Performing Organization Address [facility]/ZIP Co de Phone Number [address] [address], [facility] [phone] * (ABNORMAL) TSH REFLEX FREE T4 (09/12/2024 7:10 PM MARINE RIGGER) TSH 24.558(H) 0.350 - 4.940 uIU/mL 09/12/2024 9:[address] [facility] Blood BLOOD SPECIMEN / Unknown Venipuncture / Unknown 09/12/2024 7:10 PM MARINE RIGGER 09/12/2024 7:30 PM MARINE RIGGER Lauri Girard MD LAB - CHEMISTRY KAITLYNN SWARTZ [address] [address], [place] [phone] * PHOSPHORUS BLOOD (09/12/2024 7:10 PM MARINE RIGGER) Phosphorus 3.2 2.9 - 5.1 mg/dL 09/12/2024 7:[address] [facility] Blood BLOOD SPECIMEN / Unknown Venipuncture / Unknown 09/12/2024 7:10 PM MARINE RIGGER 09/12/2024 7:30 PM MARINE RIGGER Lauri Girard MD LAB - CHEMISTRY KAITLYNN SWARTZ Performing Organization Address City/[facility]/ZIP Co de Phone Number [address] [address], [place] [phone] * MAGNESIUM BLOOD (09/12/2024 7:10 PM MARINE RIGGER) Pathologist [facility] Magnesium 1.8 1.6 - 2.6 mg/dL 09/12/2024 7:[address] [facility] Blood BLOOD SPECIMEN / Unknown Venipuncture / Unknown 09/12/2024 7:10 PM MARINE RIGGER 09/12/2024 7:30 PM MARINE RIGGER Lauri Girard MD LAB - CHEMISTRY KAITLYNN SWARTZ Performing Organization Address [facility] Co de Phone Number [address] [address], [place] [phone] * T4 FREE (09/12/2024 7:10 PM MARINE RIGGER) Pathologist [facility] T4 Free 0.7 0.7 - 1.5 ng/dL 09/12/2024 9:[address] [facility] Blood BLOOD SPECIMEN / Unknown Venipuncture / Unknown 09/12/2024 7:10 PM MARINE RIGGER 09/12/2024 7:30 PM MARINE RIGGER Lauri Girard MD LAB - CHEMISTRY KAITLYNN SWARTZ Performing Organization Address [facility]/ZIP Co de Phone Number [address] [address], [place] [phone] * EKG 12-LEAD (09/12/2024 7:04 PM MARINE RIGGER) Ventricular Rate 97 BPM [facility] Atrial Rate 97 BPM [facility] P-R Interval 186 ms [facility] QRS Duration ms 106 ms [facility] Q-T Interval ms 388 ms [facility] QTC Calculation (Bezet) 492 ms [facility] Calculated P [place] 60 degrees [facility] Calculated R [place] -29 degrees [facility] Calculated T [place] 94 degrees [facility] Interpretation EKG NORMAL SINUS RHYTHM MINIMAL VOLTAGE CRITERIA FOR LVH, MAY BE NORMAL VARIANT ( Baldemar product ) ANTEROSEPTAL INFARCT , AGE UNDETERMINED ABNORMAL ECG NO PREVIOUS ECGS AVAILABLE Confirmed by JEREMIAH CANNON MD ([id number]) on 09/15/2024 2:33:28 PM [facility] 09/12/2024 7:04 PM MARINE RIGGER 09/15/2024 2:33 PM MARINE RIGGER Nacho Clay DO ECG ORDERABLES [facility] * XR Chest 1Vw Portable (09/12/2024 6:54 PM MARINE RIGGER) Anatomical Region Laterality Modality Chest Digital Radiogra phy 09/12/2024 7:53 PM MARINE RIGGER Narrative 09/12/2024 8:45 PM MARINE RIGGER PROCEDURE: XR CHEST 1VW PORTABLE, DATE/TIME OF EXAM: 09/12/2024 7:05 PM, LOCATION [facility] INDICATION: R47.01: Aphasia R40.4: Transient alteration of [...] visualized. Report dictated by Maikel Marr MD (radiology scheduler). IKlarissa MD have personally reviewed and interpreted this examination/study. > Interpreting Provider: Klarissa Munoz MD on 09/12/2024 8:45 PM Procedure Note Klarissa Munoz MD - 09/12/2024 PROCEDURE: XR CHEST 1VW PORTABLE, DATE/TIME OF EXAM: 09/12/2024 7:05PM, LOCATION [facility] INDICATION: R47.01: Aphasia R40.4: Transient alteration of [...] visualized. Report dictated by Maikel Marr MD (radiology scheduler). I, Klarissa Munoz MD have personally reviewed and interpreted this examination/study. > Interpreting Provider: Klarissa Munoz MD on 09/12/2024 8:45 PM Nacho R Samanthaesi DO DIAGNOSTIC IMAGING O RDERABLES * CT ANGIO BRAIN NECK STROKE (09/12/2024 6:42 PM MARINE RIGGER) Anatomical Region Laterality Modality Head Computed Tomogra phy 09/12/2024 6:57 PM MARINE RIGGER Impressions 09/12/2024 7:19 PM MARINE RIGGER IMPRESSION: 1. No acute intracranial hemorrhage. 2. No large arterial occlusions or significant stenoses identified in the head or neck. Viz.AI was used for large vessel occlusion detection. > Interpreting Provider: Milagros Flores MD on 09/12/2024 7:19 PM Narrative 09/12/2024 7:19 PM MARINE RIGGER PROCEDURE: CT ANGIO BRAIN NECK STROKE, DATE/TIME OF EXAM: 09/12/2024 6:43 PM, LOCATION [facility] INDICATION: Code Stroke ADDITIONAL CLINICAL INFORMATION: Ordering [...] STROKE, DATE/TIME OF EXAM: :43 PM, LOCATION [facility] INDICATION: Code Stroke ADDITIONAL CLINICAL INFORMATION: Ordering [...] Nacho Clay DO CT ORDERABLES * PT-INR [facility] (09/12/2024 6:39 PM MARINE RIGGER) PT 12.9 12.1 - 14.8 Seconds 09/12/2024 7:05 PM MARINE RIGGER [facility] INR 1.0 See Comment 09/12/2024 7:05 PM MARINE RIGGER [facility] Comment:The suggested therap eutic range for standard coumadin (warfarin) therapy is an INR of 2.0-3.0. For high-risk patients (Mechanical Mitral Valve Prosthesis, etc.), the suggested prophylactic therapeutic range is an INR of 2.5-3.5. Blood BLOOD SPECIMEN / Unknown Venipuncture / Unknown 09/12/2024 6:39 PM MARINE RIGGER 09/12/2024 6:45 PM MARINE RIGGER Nacho Clay DO LAB - COAGULATION OR DERABLES Performing Organization Address City/[facility]/ZIP Co de Phone Number [facility] [address] [place] [address], [facility] [phone] * TYPE + SCREEN PANEL (09/12/2024 6:39 PM MARINE RIGGER) Pathologist [facility] Antibody Screen NEG 7:42 PM MARINE RIGGER [facility] ABO Rh A POS 09/12/2024 7:42 PM MARINE RIGGER [facility] Blood Bank BLOOD SPECIMEN / Unknown Venipuncture / Unknown 09/12/2024 6:39 PM MARINE RIGGER 09/12/2024 6:50 PM MARINE RIGGER Nacho Clay DO LAB - BLOOD BANK ORD ERABLES Performing Organization Address City/[facility]/ZIP Co de Phone Number [facility] [address] [place] [address], [facility] [phone] * CBC W AUTO DIFFERENTIAL (09/12/2024 6:39 PM [facility]) Pathologist [facility] WBC 6.5 4.0 - 10.7 x10E9/L 09/12/2024 7:23 PM [facility] RBC Count 4.29 3.90 - 5.20 x10E12/L 09/12/2024 7:23 PM [facility] Hemoglobin 12.9 11.9 - 15.8 g/dL 09/12/2024 7:23 PM [facility] Hematocrit 38.5 34.8 - 46.1 % 09/12/2024 7:23 PM [facility] MCV 89.7 80.0 - 98.0 fL 09/12/2024 7:23 PM [facility] MCH 30.1 26.7 - 33.6 pg 09/12/2024 7:23 PM [facility] MCHC 33.5 31.7 - 36.3 g/dL 09/12/2024 7:23 PM [facility] RDW-CV 13.8 11.3 - 14.8 % 09/12/2024 7:23 PM [facility] Platelet Count 09/12/2024 7:23 PM [facility] Comment:Platelets clumped on slide but appears adequate. Recommend repeat with a sodium citrate blue top tube. MPV 09/12/2024 7:23 PM [facility] Comment:Unable to report Neutrophil % 68.5 41.0 - 74.0 % 09/12/2024 7:23 PM [facility] Lymphocyte % 21.5 17.0 - 47.0 % 09/12/2024 7:23 PM [facility] Monocyte % 7.3 3.0 - 11.0 % 09/12/2024 7:23 PM [facility] Eosinophil % 2.2 0.0 - 7.0 % 09/12/2024 7:23 PM [facility] Basophil % 0.3 0.0 - 1.6 % 09/12/2024 7:23 PM [facility] Immature Granulocytes % 0.2 0.0 - 1.0 % 09/12/2024 7:23 PM [facility] Neutrophil Absolute 4.45 1.60 - 7.50 x10E9/L 09/12/2024 7:23 PM [facility] Lymphocyte Absolute 1.39 1.00 - 4.40 x10E9/L 09/12/2024 7:23 PM [facility] Monocyte Absolute 0.47 0.15 - 1.00 x10E9/L 09/12/2024 7:23 PM [facility] Eosinophil Absolute 0.14 0.00 - 0.60 x10E9/L 09/12/2024 7:23 PM [facility] Basophil Absolute 0.02 0.00 - 0.13 x10E9/L 09/12/2024 7:23 PM [facility] Blood BLOOD SPECIMEN / Unknown Venipuncture / Unknown 09/12/2024 6:39 PM [facility] 09/12/2024 6:45 PM [facility] Nacho Clay DO LAB - HEMATOLOGY ORD ERABLES [facility] [address] [place] [address], [facility] [phone] * (ABNORMAL) COMPREHENSIVE METABOLIC PANEL (09/12/2024 6:39 PM [facility]) BUN 20 7 - 26 mg/dL 09/12/2024 7:11 PM [facility] Creatinine 0.85 0.56 - 0.96 mg/dL 09/12/2024 7:11 PM [facility] Sodium 142 136 - 145 mmol/L 09/12/2024 7:11 PM [facility] Potassium 4.3 3.5 - 4.5 mmol/L 09/12/2024 7:11 PM [facility] Chloride 107 98 - 107 mmol/L 09/12/2024 7:11 PM [facility] CO2 26 22 - 29 mmol/L 09/12/2024 7:11 PM [facility] Glucose 152(H) 70 - 99 mg/dL 09/12/2024 7:11 PM [facility] Calcium 9.2 8.4 - 10.2 mg/dL 09/12/2024 7:11 PM [facility] Protein Total 7.2 6.0 - 8.3 g/dL 09/12/2024 7:11 PM [facility] Albumin 4.1 3.4 - 5.0 g/dL 09/12/2024 7:11 PM [facility] Bilirubin Total 0.6 0.2 - 1.2 mg/dL 09/12/2024 7:11 PM [facility] Alkaline Phosphatase 76 40 - 150 U/L 09/12/2024 7:11 PM [facility] ALT 14 5 - 55 U/L 09/12/2024 7:11 PM [facility] AST 18 5 - 34 U/L 09/12/2024 7:11 PM [facility] Anion Gap 9 6 - 16 09/12/2024 7:11 PM [facility] BUN/Creatinine Ratio 24(H) 7 - 23 09/12/2024 7:11 PM [facility] Osmolality Calculated 300(H) 275 - 295 mOsm/kg 09/12/2024 7:11 PM [facility] Albumin/Globulin Ratio 1.3 1.1 - 2.3 09/12/2024 7:11 PM [facility] eGFR by CKD-EPI 68(L) >=90 mL/min/1.7 3 m2 09/12/2024 7:11 PM [facility] Blood BLOOD SPECIMEN / Unknown Venipuncture / Unknown 09/12/2024 6:39 PM [facility] 09/12/2024 6:45 PM [facility] Nacho Clay DO LAB - CHEMISTRY ORDE RABLES [address] [address], [facility] [phone] * CREATININE - POCT INTERFACED (09/12/2024 6:36 PM [facility]) Creatinine POCT 0.54 0.30 - 1.30 mg/dL 09/12/2024 6:37 PM [facility] eGFR >90 >=90 mL/min/1.7 3 m2 09/12/2024 6:37 PM [facility] Blood BLOOD SPECIMEN / Unknown 09/12/2024 6:36 PM [facility] 09/12/2024 6:37 PM [facility] Nacho Clay DO LAB - POINT OF CARE ORDERABLES [address] [address], [place] [phone] * INR WHOLE BLOOD - POINT OF CARE (IP) STROKE (09/12/2024 6:33 PM [facility]) INR 0.9 0.9 - 1.2 09/12/2024 6:36 PM [facility] Device [id number] 09/12/2024 6:36 PM [facility] Vocational Horticulture Instructor ID [id number] 09/12/2024 6:36 PM [facility] Blood BLOOD SPECIMEN / Unknown 09/12/2024 6:33 PM [facility] 09/12/2024 6:36 PM [facility] Nacho Clay DO LAB - POINT OF CARE ORDERABLES [facility] [address] [place] [address], [facility] [phone] * CT BRAIN - Stroke (09/12/2024 6:28 PM [facility]GER) Anatomical Region Laterality Modality Head Computed Tomogra phy 09/12/2024 6:30 PM [facility] Impressions 09/12/2024 6:50 PM [facility] IMPRESSION: 1.No acute intracranial hemorrhage. 2.Please note [...] 09/12/2024 6:50 PM Narrative 09/12/2024 6:50 PM [facility] PROCEDURE: CT BRAIN STROKE, DATE/TIME OF EXAM: 09/12/2024 6:29 PM, LOCATION [facility] INDICATION: Code Stroke EXAMINATION: Computed tomography (CT) [...] DATE/TIME OF EXAM: 09/12/2024 6:29 PM, LOCATION [facility] INDICATION: Code Stroke EXAMINATION: Computed tomography (CT) [...] 6:50 PM Nacho Clay DO CT ORDERABLES Care Teams Store Team Member Relationship Specialty Start Date End Date Brianne Ko APRN-BARRERA [address] [phone] PCP - General Nurse Practitioner Family 09/12/24
--- OUTSIDE RECORDS SUMMARY | 2024-10-25 18:19 | XMS_ITS ---
Author Organization [facility] Office Address [address] [place] [address] Care Team Providers Care Stogie Packer Name Role Phone Kevin Colon Unavailable [phone] MEDICATIONS Medication SIG (Take, Route, Frequency, Duration) Notes Start Date End Date Status Calcitriol 0.25 MCG 1 capsule Orally Onc e a day for 90 day(s) 01/30/2024 10/25/2024 Active Losartan Potassium 25 MG 1 tablet Orally Once a day for 90 day(s) 01/30/2024 Active Ergocalciferol 1.25 MG (54068 UT) 1 capsule Orally Once a week for 90 day(s) 01/30/2024 10/25/2024 Active Encounters Encounter Location Date Provider Diagnosis [place] [facility] [address] [facility] [address] [place] [address] 04/23/2024 Kevin Colon Chronic kidney disea se, stage 3a N18.31 ; Essential (primary) hypertension I10 ; Edema, unspecified R60.9 ; Renal osteodystrophy N25.0 ; Proteinuria, unspecified R80.9 and Secondary hyperparathyroidism, not elsewhere classified E21.1 ASSESSMENTS Encounter Date Diagnosis Assessment Notes Treatment Notes Treatment Clinical Notes Section Notes 04/23/2024 Chronic kidney disease, stage 3a (ICD-10 - N18.31) 04/23/2024 Essential (primary) hypertension (ICD-10 - I10) 04/23/2024 Edema, unspecified (ICD-10 - R60.9) 04/23/2024 Renal osteodystrophy (ICD-10 - N25.0) 04/23/2024 Proteinuria, unspecified (ICD-10 - R80.9) 04/23/2024 Secondary hyperparathyroidism , not elsewhere classified (ICD-10 - E21.1) PLAN OF TREATMENT Next Appt Details Provider Name:Kevin Colon 2024 01:15:00 PM, [address] [facility], [facility], [place], [address], Progress Notes * Cady BOXOB:1940 ([age] yo F)Acc No.[id number]:04/23/2024 Progress Notes Patient: Wendy BOX Provider: MD SCOT, Stephanie.Lenny.C.P, F.A.S.N. :1940 Age:83 Y Sex:Female Date:04/23/2024 Address:[address] [place] [address] Subjective: * Chief Complaints: * * Medical History: * Medications: Taking Ergocalciferol 1.25 MG (19740 UT) Capsule 1 capsule Orally Once a week , stop date 10/25/2024, Taking Calcitriol 0.25 MCG Capsule 1 capsule Orally Once a day , stop date 10/25/2024, Taking Losartan Potassium 25 MG Tablet 1 tablet Orally Once a day Objective: Assessment: * Assessment: 1. Chronic kidney disease, stage 3a - N18.31 (Primary) 2. Essential (primary) hypertension - I10 3. Edema, unspecified - R60.9 4. Renal osteodystrophy - N25.0 5. Proteinuria, unspecified - R80.9 6. Secondary hyperparathyroidism, not elsewhere classified - E21.1 Plan: * Treatment: * Billing Information: * Visit Code: 19515 Office Visit, Est Pt., Level 4. * Procedure Codes: * [employer] Sign off status: Pending * Provider: MD SCOT, Stephanie.Lenny.C.P, F.A.S.N. Date: 04/23/2024
--- OUTSIDE RECORDS SUMMARY | 2024-10-25 18:19 | XMS_ITS | Clinical Summary ---
Author Organization [facility] Quotations Book Address [address] [place] [address] Care Team Providers Care Family Law Paralegal Name Role Phone Brianne Ko SANTOSH-BARRERA Primary Care Provider [phone] Source Comments [facility],non-owned Affiliates and Associated Physician Practices is amultiple site organization consisting of ambulatory clinics and hospital sitesin [place], [place], [place] and [place]. This disclosure is being madepursuant to the Care Everywhere program and may not contain all information available regarding this patient. Last updated 18.[facility] Allergies No known active allergies Medications * [...] Date Resolved Date Facial droop 09/12/2024 09/12/2024 Encounters Date Type Department Care Team Description 09/16/2024 Telephone Transitional Care at [facility] [address] [place] [address] Karly Upton RNsteward/stewardess 09/13/2024 Travel 09/12/2024 6:24 PM BLOW MOLD OPERATOR - 09/14/2024 12:47 PM BLOW MOLD OPERATOR Hospital Encounter [facility] [address] [place] [address] Nacho Clay, Lauri Pino MD Aphasia (Primary Dx); Transient alteration of awareness; Facial droop; Hypothyroidism, unspecified type Discharge Disposition: Home or Self Care from Last 3 Months Social History Tobacco Use Types Packs/Day Years Used Date Smoking Tobacco: Never Assessed Sex and Gender Information Value Date Recorded Sex Assigned at Not on file Gender Identity Not on file Sexual Orientation Not on file Last Filed Vital Signs Vital Sign Reading Time Taken Comments Blood Pressure 172/72 09/14/2024 11:16 AM BLOW MOLD OPERATOR Pulse 88 09/14/2024 11:17 AM BLOW MOLD OPERATOR Temperature 36.7 C (98 F) 09/13/2024 10:47 PM BLOW MOLD OPERATOR Respiratory Rate 18 09/14/2024 11:17 AM BLOW MOLD OPERATOR Oxygen Saturation 95% 09/14/2024 11:17 AM BLOW MOLD OPERATOR Inhaled Oxygen Concentration - - Weight 88.9 kg (196 lb) 09/13/2024 9:36 AM BLOW MOLD OPERATOR Height 162.6 cm (5' 4 ) 09/13/2024 8:32 PM BLOW MOLD OPERATOR Body Mass Index 37.03 09/13/2024 9:36 AM BLOW MOLD OPERATOR Plan of Treatment Health Maintenance Due Date Last Done Comments BONE DENSITY TESTING 1940 DTAP/TDAP/TD VACCINES (1 - Tdap) 1958 PNEUMOCOCCAL VACCINE 50+ (1 of 1 - PCV) 1989 ZOSTER VACCINE (1 of 2) 1989 Respiratory Syncytial Virus (RSV) Vaccine Pt: or over 60 yrs (1 - 1-dose 75+ series) 2014 COVID-19 VACCINE (3 - 2023-2 5 season) 2024 06/28/2021, 06/07/2021 INFLUENZA VACCINE (#1) 2024 DEPRESSION SCREENING 09/15/2024 MEDICARE AWV CALENDAR YEAR 2024 HEPATITIS B VACCINE Aged Out No longe r eligible based on patient's age to complete this topic HIB VACCINE Aged Out No longer eligi ble based on patient's age to complete this topic HPV VACCINE Aged Out No longer eligi ble based on patient's age to complete this topic MENINGOCOCCAL (Group B) VACCINE Aged Out No longer eligible b ased on patient's age to complete this topic MENINGOCOCCAL VACCINE Aged Out No jaren lisa eligible based on patient's age to complete this topic Procedures Procedure Name Priority Date/Time Associated Diagnosis Comments CARDIAC EKG ORDER 09/14/2024 1:2 [address] HEAD WO CONTRAST Routine 09/14/2024 6 :00 AM BLOW MOLD OPERATOR Transient alteration of awareness Facial droop CBC W/O DIFFERENTIAL STAT 09/14/2024 2:15 AM BLOW MOLD OPERATOR BASIC METABOLIC PANEL (CALCIUM TOTAL) STAT 09/14/2024 2:15 AM BLOW MOLD OPERATOR GLUCOSE - POINT OF CARE Routine 09/13/2024 10:46 PM BLOW MOLD OPERATOR GLUCOSE - POINT OF CARE Routine 09/13/2024 5:46 PM BLOW MOLD OPERATOR TROPONIN-I HIGH SENSITIVE STAT 09/13/2024 1:22 PM BLOW MOLD OPERATOR Aphasia GLUCOSE - POINT OF CARE Routine 09/13/2024 12:19 PM BLOW MOLD OPERATOR BLOOD TYPE VERIFICATION STAT 09/13/2024 8:49 AM BLOW MOLD OPERATOR TROPONIN-I HIGH SENSITIVE REFLEX 1HOUR Timed 09/13/2024 8:49 AM BLOW MOLD OPERATOR URINALYSIS W/MICROSCOPIC NO CULTURE STAT 09/13/2024 8:45 AM BLOW MOLD OPERATOR HEMOGLOBIN A1C Add on 09/13/2024 6:00 AM BLOW MOLD OPERATOR LIPID PROFILE STAT 09/13/2024 6:00 AM BLOW MOLD OPERATOR CBC W/O DIFFERENTIAL STAT 09/13/2024 6:00 AM BLOW MOLD OPERATOR BASIC METABOLIC PANEL (CALCIUM TOTAL) STAT 09/13/2024 6:00 AM BLOW MOLD OPERATOR T4 FREE Routine 09/12/2024 7:10 PM BLOW MOLD OPERATOR Aphasia Transient alteration of awareness Facial droop Hypothyroidism, unspecified type TSH REFLEX FREE T4 Routine 09/12/2024 7: 10 PM BLOW MOLD OPERATOR Aphasia Transient alteration of awareness Facial droop Hypothyroidism, unspecified type PHOSPHORUS BLOOD Routine 09/12/2024 7:10 PM BLOW MOLD OPERATOR Aphasia Transient alteration of awareness MAGNESIUM BLOOD Routine 09/12/2024 7:10 PM BLOW MOLD OPERATOR Aphasia Transient alteration of awareness TROPONIN-I HIGH SENSITIVE BASELINE + 1HR STAT 09/12/2024 7:10 PM BLOW MOLD OPERATOR EKG 12-LEAD STAT 09/12/2024 7:04 PM BLOW MOLD OPERATOR Aphasia Transient alteration of awareness XR CHEST 1VW PORTABLE STAT 09/12/2024 6:54 PM BLOW MOLD OPERATOR Aphasia Transient alteration of awareness CT ANGIO BRAIN NECK STROKE STAT 09/12/2024 6:42 PM BLOW MOLD OPERATOR Aphasia Transient alteration of awareness TYPE + SCREEN PANEL STAT 09/12/2024 6 :39 PM BLOW MOLD OPERATOR PT-INR [facility] STAT 09/12/2024 6:39 PM BLOW MOLD OPERATOR COMPREHENSIVE METABOLIC PANEL STAT 09/12/2024 6:39 PM BLOW MOLD OPERATOR CBC W AUTO DIFFERENTIAL STAT 09/12/2024 6:39 PM BLOW MOLD OPERATOR CREATININE - POCT INTERFACED Routine 09/12/2024 6:36 PM BLOW MOLD OPERATOR INR WHOLE BLOOD - POINT OF CARE (IP) STROKE Routine 09/12/2024 6:33 PM BLOW MOLD OPERATOR CT BRAIN STROKE STAT 09/12/2024 6:28 PM BLOW MOLD OPERATOR Aphasia Transient alteration of awareness from Last 3 Months Results * CARDIAC EKG ORDER (09/14/2024 1:29 PM BLOW MOLD OPERATOR) Narrative 09/14/2024 1:29 PM BLOW MOLD OPERATOR Ordered by an unspecified provider. Scanned Document CARDIAC SERVICES ORD ERABLES * CT Head Wo Contrast (09/14/2024 6:00 AM BLOW MOLD OPERATOR) Anatomical Region Laterality Modality Head Computed Tomogra phy 09/14/2024 6:00 AM BLOW MOLD OPERATOR Impressions 09/14/2024 10:22 AM BLOW MOLD OPERATOR IMPRESSION: 1.No acute intracranial hemorrhage, midline shift, or significant mass effect. > Dictated by Jaswant Anaya MD (Security Police Officer) I, Luan Rouse MD have personally reviewed and interpreted this examination/study. > Interpreting Provider: Luan Rouse MD on 09/14/2024 10:22 AM Narrative 09/14/2024 10:22 AM BLOW MOLD OPERATOR PROCEDURE: CT HEAD WO CONTRAST, DATE/TIME OF EXAM: 09/14/2024 6:00 AM, LOCATION [facility] INDICATION: R40.4: Transient alteration of awareness [...] DATE/TIME OF EXAM: 09/14/2024 6:00 AM, LOCATION [facility] INDICATION: R40.4: Transient alteration of awareness [...] effect. > Dictated by Jaswant Anaya MD (Security Police Officer) I, Luan Rouse MD have personally reviewed and interpreted this examination/study. > Interpreting Provider: Luan Rouse MD on 09/14/2024 10:22 AM Lauri Girard MD CT ORDERABLES * (ABNORMAL) CBC W/O DIFFERENTIAL (09/14/2024 2:15 AM BLOW MOLD OPERATOR) Only the most recent of2 resultswithin the time period is included. [facility] WBC 11.4(H) 4.0 - 10.7 x10E9/L 09/14/2024 3:14 AM [facility] RBC Count 4.80 3.90 - 5.20 x10E12/L 09/14/2024 3:14 AM [facility] Hemoglobin 14.4 11.9 - 15.8 g/dL 09/14/2024 3:14 AM [facility] Hematocrit 43.4 34.8 - 46.1 % 09/14/2024 3:14 AM [facility] MCV 90.4 80.0 - 98.0 fL 09/14/2024 3:14 AM [facility] MCH 30.0 26.7 - 33.6 pg 09/14/2024 3:14 AM [facility] MCHC 33.2 31.7 - 36.3 g/dL 09/14/2024 3:14 AM [facility] RDW-CV 13.9 11.3 - 14.8 % 09/14/2024 3:14 AM [facility] Platelet Count 09/14/2024 3:14 AM [facility] Comment:Platelets clumped on slide but appears decreased. Recommend repeat with a sodium citrate blue top tube. MPV 09/14/2024 3:14 AM [facility] Comment:Unable to report Blood BLOOD SPECIMEN / Unknown Venipuncture / Unknown 09/14/2024 2:15 AM BLOW MOLD OPERATOR 09/14/2024 2:40 AM [facility] Ncaho Clay DO LAB - HEMATOLOGY ORD ERABLES [facility] [address] [place] [address], [facility] [phone] * (ABNORMAL) BASIC METABOLIC PANEL (CALCIUM TOTAL) (09/14/2024 2:15 AM BLOW MOLD OPERATOR) Only the most recent of2 resultswithin the time period is included. [facility] BUN 17 7 - 26 mg/dL 09/14/2024 3:07 AM [facility] Creatinine 0.90 0.56 - 0.96 mg/dL 09/14/2024 3:07 AM [facility] Sodium 142 136 - 145 mmol/L 09/14/2024 3:07 AM [facility] Potassium 3.4(L) 3.5 - 4.5 mmol/L 09/14/2024 3:07 AM [facility] Chloride 104 98 - 107 mmol/L 09/14/2024 3:07 AM [facility] CO2 23 22 - 29 mmol/L 09/14/2024 3:07 AM [facility] Glucose 205(H) 70 - 99 mg/dL 09/14/2024 3:07 AM [facility] Calcium 9.7 8.4 - 10.2 mg/dL 09/14/2024 3:07 AM [facility] Anion Gap 15 6 - 16 09/14/2024 3:07 AM [facility] BUN/Creatinine Ratio 19 7 - 23 09/14/2024 3:07 AM [facility] Osmolality Calculated 301(H) 275 - 295 mOsm/kg 09/14/2024 3:07 AM [facility] eGFR by CKD-EPI 63(L) >=90 mL/min/1.7 3 m2 09/14/2024 3:07 AM [facility] Blood BLOOD SPECIMEN / Unknown Venipuncture / Unknown 09/14/2024 2:15 AM BLOW MOLD OPERATOR 09/14/2024 2:40 AM [facility] Nacho Clay DO LAB - CHEMISTRY KAITLYNN SWARTZ Performing Organization Address City/State/[facility] Co de Phone Number [facility] [address] [place] [address], [facility] [phone] * (ABNORMAL) GLUCOSE - POINT OF CARE (09/13/2024 10:46 PM BLOW MOLD OPERATOR) Only the most recent of3 resultswithin the time period is included. Glucose WB/POC 133(H) 70 - 99 mg/dL 09/13/2024 10:47 PM [facility] Specimen Type Cap Fingerstick 2023 10:47 PM [facility] Blood BLOOD SPECIMEN / Unknown 09/13/2024 10:46 PM BLOW MOLD OPERATOR 09/13/2024 10:47 PM BLOW MOLD OPERATOR Lauri Girard MD LAB - POINT OF CARE ORDERABLES Performing Organization Address City/[facility]/ZIP Co de Phone Number [address] [address], [facility] [phone] * (ABNORMAL) TROPONIN-I HIGH SENSITIVE (09/13/2024 1:22 PM BLOW MOLD OPERATOR) Troponin I High Sensitive 18(H) <=14 ng/L 09/13/2024 2:08 PM BLOW MOLD OPERATOR [facility] Blood BLOOD SPECIMEN / Unknown Venipuncture / Unknown 09/13/2024 1:22 PM BLOW MOLD OPERATOR 09/13/2024 1:33 PM BLOW MOLD OPERATOR Lauri Girard MD LAB - CHEMISTRY ORDAshly SWARTZ Performing Organization Address [facility] Co de Phone Number [address] [address], [facility] [phone] * (ABNORMAL) TROPONIN-I HIGH SENSITIVE REFLEX 1HOUR (09/13/2024 8:49 AM BLOW MOLD OPERATOR) Troponin I High Sensitive 20(H) <=14 ng/L 09/13/2024 9:34 AM BLOW MOLD OPERATOR [facility] Delta Troponin I HS 09/13/2024 9:34 AM BLOW MOLD OPERATOR [facility] Comment:Delta value intentio turner not calculated. Baseline to 1 hour specimen collection interval exceeded. Blood BLOOD SPECIMEN / Unknown Venipuncture / Unknown 09/13/2024 8:49 AM BLOW MOLD OPERATOR 09/13/2024 8:55 AM BLOW MOLD OPERATOR Nacho Clay DO LAB - CHEMISTRY ORDAshly SWARTZ Performing Organization Address City/[facility]/ZIP Co de Phone Number [address] [address], [facility] [phone] * BLOOD TYPE VERIFICATION (09/13/2024 8:49 AM BLOW MOLD OPERATOR) ABO Rh A POS 09/13/2024 9:4 9 AM BLOW MOLD OPERATOR [facility] Blood Bank BLOOD SPECIMEN / Unknown Venipuncture / Unknown 09/13/2024 8:49 AM BLOW MOLD OPERATOR 09/13/2024 9:05 AM BLOW MOLD OPERATOR Nacho Clay DO LAB - BLOOD BANK ORD ERABLES [facility] [address] [place] [address], [facility] [phone] * (ABNORMAL) URINALYSIS W/MICROSCOPIC NO CULTURE (09/13/2024 8:45 AM BLOW MOLD OPERATOR) Color UA Rowena(A) Straw, Yellow 09/13/2024 9:13 AM [facility] Clarity UA Cloudy(A) Clear 09/13/2024 9:13 AM [facility] Specific Burton UA 1.034(H) 1.005 - 1.030 09/13/2024 9:13 AM [facility] pH UA 7.0 5.0 - 8.0 pH 09/13/2024 9:13 AM [facility] Protein UA 2+(A) Negative 09/13/2024 9:13 AM [facility] Glucose UA Negative Negative 09/13/2024 9:13 AM [facility] Ketone UA Negative Negative 09/13/2024 9:13 AM [facility] Bilirubin UA Negative Negative 09/13/2024 9:13 AM [facility] Blood UA 1+(A) Negative 09/13/2024 9:13 AM [facility] Nitrite UA Negative Negative 09/13/2024 9:13 AM [facility] Leukocyte Esterase Trace(A) Negative 09/13/2024 9:13 AM [facility] Urobilinogen UA 2.0(A) Negative mg/dL 09/13/2024 9:13 AM [facility] RBC UA 21-50(A) None Seen, 0-2, 3-5 /HPF 09/13/2024 9:13 AM [facility] WBC UA 6-10(A) None Seen, 0-5 /HPF 09/13/2024 9:13 AM [facility] Bacteria UA 3+(A) None /HPF 09/13/2024 9:13 AM [facility] Squamous Epithelial Cells UA 3-5 None Seen, 0-2, 3-5 /HPF 09/13/2024 9:13 AM [facility] Mucus UA 1+ /LPF 09/13/2024 9:13 AM [facility] Amorphous Crystals Few(A) None /HPF 09/13/2024 9:13 AM [facility] Urine URINE SPECIMEN OBTAINED BY CLEAN CATCH PROCEDURE / Unknown Collection / Unknown 09/13/2024 8:45 AM BLOW MOLD OPERATOR 09/13/2024 8:55 AM BLOW MOLD OPERATOR Narrative [facility] - 09/13/2024 9:13 AM BLOW MOLD OPERATOR Nacho Clay DO LAB - URINALYSIS ORD ERABLES [facility] [address] [place] [address], [facility] [phone] * (ABNORMAL) HEMOGLOBIN A1C (09/13/2024 6:00 AM BLOW MOLD OPERATOR) Hemoglobin A1c 6.8(H) <=5.6 % 09/14/2024 9:53 AM [facility] Estimated Average Glucose 148 mg/dL 09/14/2024 9:53 AM [facility] Comment: HbA1c Interpretation: Normal : < 5.7% Pre-diabetes: 5.7-6.4% Diabetes: Equal to or greater than 6.5% Test results diagnostic of diabetes should be repeated for confirmation. Treatment target values recommended by ADA and other clinical organizations should be used to evaluate metabolic control in patients. Reference: [employer], Standards of Care in Diabetes -2020 In patients 70 years and older consider HbA1c target range of 7.0-7.5% (Reference: Neel Galvez et al. JAMDA. 2012) The Sebia assay for the measurement of HbA1c is a National Glycohemoglobin Standardization Program (NGSP) certified method. Blood BLOOD SPECIMEN / Unknown Venipuncture / Unknown 09/13/2024 6:00 AM BLOW MOLD OPERATOR 09/13/2024 8:53 PM BLOW MOLD OPERATOR Kareem Bagley MD LAB - CHEMISTRY ORDE RABLES Performing Organization Address City/[facility]/ZIP Co de Phone Number [facility] [address] [place] [address], [facility] [phone] * (ABNORMAL) LIPID PROFILE (09/13/2024 6:00 AM BLOW MOLD OPERATOR) Cholesterol Total 170 <200 mg/dL 09/13/2024 6:49 AM [facility] HDL 55 >40 mg/dL 09/13/2024 6:49 AM [facility] Comment: ATP III Classification of HDL Cholesterol: <40 mg/dL: Considered a major risk factor. >60 mg/dL: Considered a negative risk factor. LDL Calculated 82 <100 mg/dL 09/13/2024 6:49 AM [facility] Comment: ATP III Classification of LDL Cholesterol: <100 mg/dL: Optimal 100 - 129 mg/dL: Near Optimal/Above Optimal 130 - 159 mg/dL: Borderline High 160 - 189 mg/dL: High >190 mg/dL: Very High Triglycerides 163(H) <150 mg/dL 09/13/2024 6:49 AM [facility] Comment: ATP III Classification of Triglycerides: <150 mg/dL: Normal 150 - 199 mg/dL: Borderline High 200 - 400 mg/dL: High >500 mg/dL: Very High Blood BLOOD SPECIMEN / Unknown Venipuncture / Unknown 09/13/2024 6:00 AM BLOW MOLD OPERATOR 09/13/2024 6:27 AM BLOW MOLD OPERATOR Nacho Clay DO LAB - CHEMISTRY KAITLYNN SWARTZ [facility] [address] [place] [address], [place] [phone] * TROPONIN-I HIGH SENSITIVE BASELINE + 1HR (09/12/2024 7:10 PM BLOW MOLD OPERATOR) Troponin I High Sensitive 12 <=14 ng/L 09/12/2024 7:49 PM [facility] Blood BLOOD SPECIMEN / Unknown Venipuncture / Unknown 09/12/2024 7:10 PM BLOW MOLD OPERATOR 09/12/2024 7:30 PM BLOW MOLD OPERATOR Nacho Clay DO LAB - CHEMISTRY ORDE SHERIDAN Performing Organization Address City/[facility]/ZIP Co de Phone Number [address] [address], [place] [phone] * (ABNORMAL) TSH REFLEX FREE T4 (09/12/2024 7:10 PM BLOW MOLD OPERATOR) TSH 24.558(H) 0.350 - 4.940 uIU/mL 09/12/2024 9:14 PM BLOW MOLD OPERATOR [facility] Blood BLOOD SPECIMEN / Unknown Venipuncture / Unknown 09/12/2024 7:10 PM BLOW MOLD OPERATOR 09/12/2024 7:30 PM BLOW MOLD OPERATOR Lauri Girard MD LAB - CHEMISTRY ORDAshly SWARTZ Performing Organization Address [facility] Co de Phone Number [address] [address], [place] [phone] * PHOSPHORUS BLOOD (09/12/2024 7:10 PM BLOW MOLD OPERATOR) Phosphorus 3.2 2.9 - 5.1 mg/dL 09/12/2024 7:50 PM BLOW MOLD OPERATOR [facility] Blood BLOOD SPECIMEN / Unknown Venipuncture / Unknown 09/12/2024 7:10 PM BLOW MOLD OPERATOR 09/12/2024 7:30 PM BLOW MOLD OPERATOR Lauri Girard MD LAB - CHEMISTRY ORDE SHERIDAN [address] [address], [place] [phone] * MAGNESIUM BLOOD (09/12/2024 7:10 PM BLOW MOLD OPERATOR) Magnesium 1.8 1.6 - 2.6 mg/dL 09/12/2024 7:50 PM BLOW MOLD OPERATOR [facility] Blood BLOOD SPECIMEN / Unknown Venipuncture / Unknown 09/12/2024 7:10 PM BLOW MOLD OPERATOR 09/12/2024 7:30 PM BLOW MOLD OPERATOR Lauri Girard MD LAB - CHEMISTRY KAITLYNN SWARTZ Performing Organization Address City/[facility]/ZIP Co de Phone Number [facility] [address] [place] [address], [facility] [phone] * T4 FREE (09/12/2024 7:10 PM BLOW MOLD OPERATOR) Pathologist [facility] T4 Free 0.7 0.7 - 1.5 ng/dL 09/12/2024 9:47 PM BLOW MOLD OPERATOR [facility] Blood BLOOD SPECIMEN / Unknown Venipuncture / Unknown 09/12/2024 7:10 PM BLOW MOLD OPERATOR 09/12/2024 7:30 PM BLOW MOLD OPERATOR Lauri Girard MD LAB - CHEMISTRY KAITLYNN SWARTZ Performing Organization Address [facility] Co de Phone Number [address] [address], [facility] [phone] * EKG 12-LEAD (09/12/2024 7:04 PM BLOW MOLD OPERATOR) [facility] Ventricular Rate 97 BPM [facility] MUSE Atrial Rate 97 BPM [facility] MUSE P-R Interval 186 ms [facility] MUSE QRS Duration ms 106 ms H MUSE Q-T Interval ms 388 ms [facility] MUSE QTC Calculation (Bezet) 492 ms [facility] MUSE Calculated P Phoenix 60 degrees [facility] MUSE Calculated R [place] -29 degrees [facility] MUSE Calculated T [place] 94 degrees [facility] MUSE Interpretation EKG NORMAL SINUS RHYTHM MINIMAL VOLTAGE CRITERIA FOR LVH, MAY BE NORMAL VARIANT ( Baldemar product ) ANTEROSEPTAL INFARCT , AGE UNDETERMINED ABNORMAL ECG NO PREVIOUS ECGS AVAILABLE Confirmed by JEREMIAH CANNON MD ([id number]) on 09/15/2024 2:33:28 PM [facility] MUSE 09/12/2024 7:04 PM BLOW MOLD OPERATOR 09/15/2024 2:33 PM BLOW MOLD OPERATOR Nacho Clay DO ECG ORDERABLES Performing Organization Address [facility]/ZIP Co de Phone Number [facility] MUSE * XR Chest 1Vw Portable (09/12/2024 6:54 PM BLOW MOLD OPERATOR) Anatomical Region Laterality Modality Chest Digital Radiogra phy 09/12/2024 7:53 PM BLOW MOLD OPERATOR Narrative 09/12/2024 8:45 PM BLOW MOLD OPERATOR PROCEDURE: XR CHEST 1VW PORTABLE, DATE/TIME OF EXAM: 09/12/2024 7:05 PM, LOCATION [facility] INDICATION: R47.01: Aphasia R40.4: Transient alteration [...] visualized. Report dictated by Maikel Marr MD (vice president of news). Klarissa Verma MD have personally reviewed and interpreted this examination/study. > Interpreting Provider: Klarissa Munoz MD on 09/12/2024 8:45 PM Procedure Note Klarissa Munoz MD - 09/12/2024 PROCEDURE: XR CHEST 1VW PORTABLE, DATE/TIME OF EXAM: 09/12/2024 7:05PM, LOCATION [facility] INDICATION: R47.01: Aphasia R40.4: Transient alteration [...] visualized. Report dictated by Maikel Marr MD (vice president of news). Klarissa Verma MD have personally reviewed and interpreted this examination/study. > Interpreting Provider: Klarissa Munoz MD on 09/12/2024 8:45 PM Nacho Clay DO DIAGNOSTIC IMAGING O RDERABLES * CT ANGIO BRAIN NECK STROKE (09/12/2024 6:42 PM BLOW MOLD OPERATOR) Anatomical Region Laterality Modality Head Computed Tomogra phy 09/12/2024 6:57 PM BLOW MOLD OPERATOR Impressions 09/12/2024 7:19 PM BLOW MOLD OPERATOR IMPRESSION: 1. No acute intracranial hemorrhage. 2. No large arterial occlusions or significant stenoses identified in the head or neck. Viz.AI was used for large vessel occlusion detection. > Interpreting Provider: Milagros Flores MD on 09/12/2024 7:19 PM Narrative 09/12/2024 7:19 PM BLOW MOLD OPERATOR PROCEDURE: CT ANGIO BRAIN NECK STROKE, DATE/TIME OF EXAM: 09/12/2024 6:43 PM, LOCATION [facility] INDICATION: Code Stroke ADDITIONAL CLINICAL INFORMATION: [...] ANGIO BRAIN NECK STROKE, DATE/TIME OF EXAM: 46:43 PM, LOCATION [facility] INDICATION: Code Stroke ADDITIONAL CLINICAL INFORMATION: [...] Nacho Clay DO CT ORDERABLES * PT-INR [facility] (09/12/2024 6:39 PM BLOW MOLD OPERATOR) Pathologist [facility] PT 12.9 12.1 - 14.8 Seconds 09/12/2024 7:05 PM BLOW MOLD OPERATOR [facility] INR 1.0 See Comment 09/12/2024 7:05 PM [facility] Comment:The suggested therap eutic range for standard coumadin (warfarin) therapy is an INR of 2.0-3.0. For high-risk patients (Mechanical Mitral Valve Prosthesis, etc.), the suggested prophylactic therapeutic range is an INR of 2.5-3.5. Blood BLOOD SPECIMEN / Unknown Venipuncture / Unknown 09/12/2024 6:39 PM BLOW MOLD OPERATOR 09/12/2024 6:45 PM BLOW MOLD OPERATOR Nacho Clay DO LAB - COAGULATION OR DERABLES [facility] [address] [place] [address], [facility] [phone] * TYPE + SCREEN PANEL (09/12/2024 6:39 PM BLOW MOLD OPERATOR) Antibody Screen NEG 7:42 PM BLOW MOLD OPERATOR [facility] ABO Rh A POS 09/12/2024 7:42 PM BLOW MOLD OPERATOR [facility] Blood Bank BLOOD SPECIMEN / Unknown Venipuncture / Unknown 09/12/2024 6:39 PM BLOW MOLD OPERATOR 09/12/2024 6:50 PM BLOW MOLD OPERATOR Nacho Clay DO LAB - BLOOD BANK ORD ERABLES [facility] [address] [place] [address], [facility] [phone] * CBC W AUTO DIFFERENTIAL (09/12/2024 6:39 PM BLOW MOLD OPERATOR) WBC 6.5 4.0 - 10.7 x10E9/L 09/12/2024 7:23 PM [facility] RBC Count 4.29 3.90 - 5.20 x10E12/L 09/12/2024 7:23 PM [facility] Hemoglobin 12.9 11.9 - 15.8 g/dL 09/12/2024 7:23 PM [facility] Hematocrit 38.5 34.8 - 46.1 % 09/12/2024 7:23 PM [facility] MCV 89.7 80.0 - 98.0 fL 09/12/2024 7:23 PM [facility] MCH 30.1 26.7 - 33.6 pg 09/12/2024 7:23 PM [facility] MCHC 33.5 31.7 - 36.3 g/dL 09/12/2024 7:23 PM [facility] RDW-CV 13.8 11.3 - 14.8 % 09/12/2024 7:23 PM [facility] Platelet Count 09/12/2024 7:23 PM [facility] Comment:Platelets clumped on slide but appears adequate. Recommend repeat with a sodium citrate blue top tube. MPV 09/12/2024 7:23 PM [facility] Comment:Unable to report Neutrophil % 68.5 41.0 - 74.0 % 09/12/2024 7:23 PM [facility] Lymphocyte % 21.5 17.0 - 47.0 % 09/12/2024 7:23 PM [facility] Monocyte % 7.3 3.0 - 11.0 % 09/12/2024 7:23 PM [facility] Eosinophil % 2.2 0.0 - 7.0 % 09/12/2024 7:23 PM [facility] Basophil % 0.3 0.0 - 1.6 % 09/12/2024 7:23 PM [facility] Immature Granulocytes % 0.2 0.0 - 1.0 % 09/12/2024 7:23 PM [facility] Neutrophil Absolute 4.45 1.60 - 7.50 x10E9/L 09/12/2024 7:23 PM [facility] Lymphocyte Absolute 1.39 1.00 - 4.40 x10E9/L 09/12/2024 7:23 PM [facility] Monocyte Absolute 0.47 0.15 - 1.00 x10E9/L 09/12/2024 7:23 PM [facility] Eosinophil Absolute 0.14 0.00 - 0.60 x10E9/L 09/12/2024 7:23 PM [facility] Basophil Absolute 0.02 0.00 - 0.13 x10E9/L 09/12/2024 7:23 PM [facility] Blood BLOOD SPECIMEN / Unknown Venipuncture / Unknown 09/12/2024 6:39 PM BLOW MOLD OPERATOR 09/12/2024 6:45 PM BLOW MOLD OPERATOR Nacho Clay DO LAB - HEMATOLOGY ORD ERABLES [facility] [address] [place] [address], [facility] [phone] * (ABNORMAL) COMPREHENSIVE METABOLIC PANEL (09/12/2024 6:39 PM BLOW MOLD OPERATOR) BUN 20 7 - 26 mg/dL 09/12/2024 7:11 PM [facility] Creatinine 0.85 0.56 - 0.96 mg/dL 09/12/2024 7:11 PM [facility] Sodium 142 136 - 145 mmol/L 09/12/2024 7:11 PM [facility] Potassium 4.3 3.5 - 4.5 mmol/L 09/12/2024 7:11 PM [facility] Chloride 107 98 - 107 mmol/L 09/12/2024 7:11 PM [facility] CO2 26 22 - 29 mmol/L 09/12/2024 7:11 PM [facility] Glucose 152(H) 70 - 99 mg/dL 09/12/2024 7:11 PM [facility] Calcium 9.2 8.4 - 10.2 mg/dL 09/12/2024 7:11 PM [facility] Protein Total 7.2 6.0 - 8.3 g/dL 09/12/2024 7:11 PM [facility] Albumin 4.1 3.4 - 5.0 g/dL 09/12/2024 7:11 PM [facility] Bilirubin Total 0.6 0.2 - 1.2 mg/dL 09/12/2024 7:11 PM [facility] Alkaline Phosphatase 76 40 - 150 U/L 09/12/2024 7:11 PM [facility] ALT 14 5 - 55 U/L 09/12/2024 7:11 PM [facility] AST 18 5 - 34 U/L 09/12/2024 7:11 PM [facility] Anion Gap 9 6 - 16 09/12/2024 7:11 PM [facility] BUN/Creatinine Ratio 24(H) 7 - 23 09/12/2024 7:11 PM [facility] Osmolality Calculated 300(H) 275 - 295 mOsm/kg 09/12/2024 7:11 PM [facility] Albumin/Globulin Ratio 1.3 1.1 - 2.3 09/12/2024 7:11 PM [facility] eGFR by CKD-EPI 68(L) >=90 mL/min/1.7 3 m2 09/12/2024 7:11 PM [facility] Blood BLOOD SPECIMEN / Unknown Venipuncture / Unknown 09/12/2024 6:39 PM BLOW MOLD OPERATOR 09/12/2024 6:45 PM [facility] Nacho Clay DO LAB - CHEMISTRY ORDE SHERIDAN [facility] [address] [place] [address], [facility] [phone] * CREATININE - POCT INTERFACED (09/12/2024 6:36 PM BLOW MOLD OPERATOR) Creatinine POCT 0.54 0.30 - 1.30 mg/dL 09/12/2024 6:37 PM BLOW MOLD OPERATOR [facility] eGFR >90 >=90 mL/min/1.7 3 m2 09/12/2024 6:37 PM BLOW MOLD OPERATOR [facility] Blood BLOOD SPECIMEN / Unknown 09/12/2024 6:36 PM BLOW MOLD OPERATOR 09/12/2024 6:37 PM BLOW MOLD OPERATOR Nacho Clay DO LAB - POINT OF CARE ORDERABLES [facility] [address] [place] [id number], [facility] [phone] * INR WHOLE BLOOD - POINT OF CARE (IP) STROKE (09/12/2024 6:33 PM BLOW MOLD OPERATOR) INR 0.9 0.9 - 1.2 09/12/2024 6:36 PM BLOW MOLD OPERATOR [facility] Device [id number] 09/12/2024 6:36 PM BLOW MOLD OPERATOR [facility] Regional Account Executive ID [id number] 09/12/2024 6:36 PM BLOW MOLD OPERATOR [facility] Blood BLOOD SPECIMEN / Unknown 09/12/2024 6:33 PM BLOW MOLD OPERATOR 09/12/2024 6:36 PM BLOW MOLD OPERATOR Nacho Claudio Clay LAB - POINT OF CARE ORDERABLES [facility] [address] [place] [id number], [place] [phone] * CT BRAIN - Stroke (09/12/2024 6:28 PM BLOW MOLD OPERATOR) Anatomical Region Laterality Modality Head Computed Tomogra phy 09/12/2024 6:30 PM BLOW MOLD OPERATOR Impressions 09/12/2024 6:50 PM BLOW MOLD OPERATOR IMPRESSION: 1.No acute intracranial hemorrhage. 2.Please note [...] 09/12/2024 6:50 PM Narrative 09/12/2024 6:50 PM BLOW MOLD OPERATOR PROCEDURE: CT BRAIN STROKE, DATE/TIME OF EXAM: 09/12/2024 6:29 PM, LOCATION [facility] INDICATION: Code Stroke EXAMINATION: Computed tomography [...] DATE/TIME OF EXAM: 09/12/2024 6:29 PM, LOCATION [facility] INDICATION: Code Stroke EXAMINATION: Computed tomography [...] 6:45 PM 09/14/2024 1:52 PM Care Teams Family Law Paralegal Relationship Specialty Start Date End Date Brianne Ko APRN-BARRERA [address] [facility] [address] [place] [address] PCP - General Nurse Practitioner Family 09/12/24
[2024-10-25 18:51] VITALS: BP 191/77; PULSE 94; TEMP 36.9; O2SAT 99
[2024-10-25 23:27] VITALS: BP 167/70; PULSE 81; RESP 18; O2SAT 97
--- NOTE | 2024-10-26 03:24 | ED_ITS ---
HPI - Extremity Problem General Chief complaint: Extremity Problem,Nontraumatic Stated complaint: swollen, red R leg Time Seen by Provider: 10/26/24 03:23 Source: patient and family (Kathy, daughter) Mode of arrival: ambulatory Limitations: no limitations History of Present Illness HPI Narrative: Patient presents with swollen right leg and pain in R foot. Approimately 1 month ago she recalls accidentally shutting her foot in a door at which point she had some pain at the ankle. This pain and swelling had improved but withint the past day she noticed her right leg was erythematous, progressively getting worse throughout the day and including the time spent in the waiting room. She is having chills. History of cellulitis but no MRSA. She is on rivaroxaban 20mg QHS which she states she has been takin though she doesn't know why (states for my heart when asked if it for stents/afib/DVT/PE/etc). Not on diuretics. Related Data Home Medications ?Medication ?Instructions ?Recorded ?Confirmed ?Last Taken ?Type levothyroxine 100 mcg tablet 100 mcg PO QAM 01/02/22 02/18/22 02/18/22 History (Euthyrox) metoprolol tartrate 25 mg tablet 25 mg PO DAILY 01/02/22 02/18/22 02/18/22 History rivaroxaban 20 mg tablet (Xarelto) 20 mg PO DAILY 01/02/22 02/18/22 02/13/22 History simvastatin 20 mg tablet 20 mg PO DAILY 01/02/22 02/18/22 02/17/22 History lisinopril 20 1 tablet PO QAM 02/08/22 02/18/22 02/17/22 History mg-hydrochlorothiazide 25 mg tablet Allergies Allergy/AdvReac Type Severity Reaction Status Date / Time codeine AdvReac Intermediate NAUSEA Verified 12/10/23 20:54 PMFSH Past Medical History Medical History History of cellulitis w/o MRSA History of pulmonary embolism A-fib Diabetes type 2, controlled High blood pressure High cholesterol Surgical History Surgical History History of left heart catheterization Family History Family History Other Acute myocardial infarction Acute rheumatic arthritis Cancer Depression Hypertension Social History Social History Social History: Daughter Kathy Smoking status: Never smoker Alcohol intake: current Substance use: never Substance use type: does not use Living arrangements: with family Additional living arrangements comments: DAUGHTER Occupation/Education: retired Gender identity (if verbalized by the patient): Female Spiritual care concerns: No Exam 2 Narrative: GENERAL: Well-appearing, well-nourished, and in no acute distress. HEAD: Normocephalic, atraumatic. EYES: Non injected, non icteric ENT: Nares clear, no rhinorrhea or epistaxis. NECK: Supple. CHEST: Speaking in full sentences. No respiratory distress. HEART: Regular rate and rhythm. . ABDOMEN: Soft, nondistended. EXTREMITIES: Normal range of motion. SKIN: Warm, dry. Right lower extremity with erythema, most pronounced along anterior aspect but not with discrete borders. Mild edema but warmer when compared to contralateral. Skin otherwise intact. TTP along anterior aspect. No appreciable bullae/crepitus. Rash contained to below right knee. Leg assessed up to thigh/inguinal crease. NEURO: No focal deficits. Alert and oriented x3. PSYCH: Normal mood and affect. Course Vital Signs Vital signs: Vital Signs Temperature 98.4 F 10/25/24 18:51 Pulse Rate 94 10/25/24 18:51 Blood Pressure 191/77 H 10/25/24 18:51 Pulse Oximetry 99 10/25/24 18:51 Oxygen Delivery Room Air 10/25/24 18:51 Temperature 98.4 F 10/25/24 18:51 Pulse Rate 81 10/25/24 23:27 Respiratory Rate 18 10/25/24 23:27 Blood Pressure 138/71 10/26/24 05:16 Pulse Oximetry 92 10/26/24 05:16 Oxygen Delivery Room Air 10/25/24 18:51 MDM - Extremity (Nontraumatic) MDM Narrative Medical decision making narrative: Patient presents with pain in her right foot and a swollen red right leg. In the emergency department she is afebrile vital signs notable for hypertension. Will defer assessing for DVT given she is already anticoagulated on rivaroxaban 20mg QHS which she states she is compliant with (despite prior med review had listed it as on old for a period of time). She doesn't know why she takes it, for my heart , but per review of EMR, hx PE and afib. She has a leukocytosis. Hyperglycemia without anion gap acidosis. CRP mildly elevated. POCUS used which does show overlying cobblestoning consistent with edema of cellulitis. Skin pen used to outline area of infection, dated. Although she notes that the infection has spread quickly, I have lower suspicion for necrotizing soft tissue infection; LRINEC score of 1 also suggests that that is likely not the case. BNP mildly elevated but not to a degree to suggest heart failure given the reference range of the assay for patient's age. Patient given first dose of antibiotics IV with the rest of the course prescribed PO. Also prescribed APAP and advised on continuing to avoid NSAIDs given she is on Rivaroxaban. Discharged in stable condition and advised f/u with PCP and ED return precautions. Differential Diagnosis Differential diagnosis: Likely herpes zoster, cellulitis, superficial thrombophlebitis, lower extremity edema, deep vein thrombosis of lower extremity and other (abscess, heart failure) Lab Data Attestation: I reviewed the patient's lab results. 10/26/24 04:57 10/26/24 04:57 Labs: Lab Results 10/26/24 Range/Units 04:57 WBC 13.3 H (4.5-10.0) K/mm3 RBC 4.30 (4.2-5.4) M/mm3 Hgb 12.8 (12.0-15.0) g/dL Hct 40.0 (37.0-47.0) % MCV 93.0 (80-100) fl MCH 29.8 (26-34) pg MCHC 32.0 (32-36) g/dl RDW 14.0 (11.5-14.5) % Plt Count 175 (150-375) k/mm3 MPV 10.7 H (7.4-10.4) fl Immature Gran % (Auto) 0.4 (0-0.5) % Neut % (Auto) 88.2 H (45.5-73.1) % Lymph % (Auto) 6.4 L (18.3-44.2) % [place] % (Auto) 4.2 (2.6-8.5) % Eos % (Auto) 0.5 (0-4.4) % Baso % (Auto) 0.3 (0.2-1.2) % Lymph # (Auto) 0.85 L (0.9-3.2) K/mm3 [place] # (Auto) 0.6 (0.1-0.6) K/mm3 Eos # (Auto) 0.1 (0-0.3) K/mm3 Baso # (Auto) 0.0 (0.0-0.1) K/mm3 Abs Immat Gran (auto) 0.05 H (0.00-0.031) K/mm3 Absolute Neuts (auto) 11.7 H (1.3-6.7) K/mm3 Absolute Nucleated RBC 0.000 (0.0-0.012) K/mm3 Nucleated RBC % 0.0 (0.0-0.2) % PT 17.5 H (11.1-14.7) Seconds INR 1.4 APTT 35.6 (22.3-36.8) Seconds Sodium 139 (137-145) mmol/L Potassium 3.8 (3.4-5.0) mmol/L Chloride 101 (98-107) mmol/L Carbon Dioxide 30 (22-30) mmol/L Anion Gap 8 (4-12) mmol/L BUN 24 H D (7-17) mg/dL Creatinine 0.79 (0.7-1.0) mg/dL Estim Creat Clear Calc 48 ml/min Estimated GFR > 60 (59 - ) Glucose 175 H (65-110) mg/dL Lactic Acid 1.2 (0.7-2.0) mmol/L Calcium 9.2 (8.4-10.2) mg/dL Magnesium 2.1 (1.6-2.3) mg/dL Total Bilirubin 1.2 (0.2-1.3) mg/dL AST 17 (14-36) U/L ALT 17 (6-35) U/L Alkaline Phosphatase 82 (38-126) U/L Total Creatine Kinase 60 (30-135) U/L C-Reactive Protein 6.8 H (<1.0) mg/dL NT-Pro-B Natriuret Pep 744 H (19.9-100) pg/mL Total Protein 8.0 (6.3-8.2) g/dL Albumin 4.2 (3.5-5.1) g/dL Imaging Data Attestation: I personally reviewed and interpreted this imaging study as follows: My impression: Normal w/o obvious injury/fracture and w/o evidence of subcutaneous gas Discharge Plan Discharge Clinical Impression: Leukocytosis, Cellulitis of leg, right Patient Disposition: Home, Self-Care Condition: Stable Instructions: Antibiotic Form, Cellulitis (ED), Leukocytosis (ED) Additional Instructions: Given your on the anticoagulation, your to continue to avoid all NSAIDs such as ibuprofen, Motrin, naproxen, Naprosyn, Advil, Aleve. However, it is safe to take acetaminophen/Tylenol, maximum 4000 mg per day. You received your 1st dose of clindamycin in the form of IV in the emergency department the rest of the course has been prescribed. Take this entire course. Follow-up with primary care physician. Return to the emergency department with any new or worsening /unmanaged symptoms. Patient Language: Greenlandic Prescriptions: New clindamycin HCl 150 mg capsule 450 mg PO TID 5 Days Qty: 45 0RF acetaminophen 500 mg capsule 1,000 mg PO Q6H PRN (Reason: pain) Qty: 30 0RF No Action metoprolol tartrate 25 mg tablet 25 mg PO DAILY simvastatin 20 mg tablet 20 mg PO DAILY Xarelto 20 mg tablet 20 mg PO DAILY Rx Instructions: must administer with evening meal levothyroxine [Euthyrox] 100 mcg tablet 100 mcg PO QAM cephalexin 500 mg capsule 500 mg PO Q12H 7 Days Qty: 14 0RF lisinopril-hydrochlorothiazide 20-25 mg tablet 1 tablet PO QAM tramadol 50 mg tablet 50 mg PO Q6H PRN (Reason: pain) Qty: 20 0RF docusate sodium [Colace] 100 mg capsule 100 mg PO BID Qty: 60 0RF furosemide [Lasix] 20 mg tablet 20 mg PO DAILY 3 Days Qty: 3 0RF furosemide [Lasix] 20 mg tablet 20 mg PO DAILY Qty: 3 0RF potassium chloride 20 mEq packet 20 meq PO DAILY Qty: 3 0RF Follow-up/Referrals: Renetta,MD Sonya [Primary Care Provider] - Time of Disposition: 05:42
--- OUTSIDE RECORDS SUMMARY | 2024-10-26 03:28 | XMS_ITS | Clinical Summary ---
Author Organization [facility] Address [address] [place] [address] Care Team Providers Care Scudding Inspector Name Role Phone Brianne Ko NP Primary Care Provider Allergies No known active allergies Medications simvastatin [...] Date NSTEMI (non-ST elevation gia cardial infarction) ([facility]) 04/11/2020 NSTEMI (non-ST elevated myoc ardial infarction) ([facility]) 04/10/2020 Social History Tobacco Use Types Packs/Day [...] 102 <200 MG/DL 04/11/2020 2:[address] [facility] TRIGLYCERIDES 182(H) <150 MG/DL 04/11/2020 2:00 AM CDT [facility] HDL 38(L) >40.0 MG/DL 04/11/2020 2:00 AM CDT [facility] LDL (CALCULATED) 28 <100 MG/DL 04/11/2020 2:00 AM CDT [facility] NON HDL CHOLESTEROL 64 <130 MG/DL 04/11/2020 2:00 AM CDT [facility] CHOL/HDL RATIO 2.7 0.0 - 4.5 04/11/2020 2:00 AM CDT [facility] VLDL CALCULATION 36 5 - 55 MG/DL 04/11/2020 2:00 AM CDT [facility] LIPID INTERPRETATION 04/11/2020 2:00 AM T [facility] Comment: [facility] REPORT RECOMMENDATIONS: ADULT CHILD LOW RISK: CHOLESTEROL <200 <170 TRIGLYCERIDE <150 --- HDL >=60 --- LDL <100 <110 BORDERLINE: CHOLESTEROL 200-239 170-199 TRIGLYCERIDE 150-199 --- HDL 40-59 --- LDL 100-159 110-129 HIGH RISK: CHOLESTEROL >=240 >=200 TRIGLYCERIDE >=200 --- HDL <40 --- LDL >=160 >=130 04/11/2020 1:10 AM CDT Alexander Fofana MD LABORATORY Final Result [facility] [address] [place] [address], from Last 3 Months or Most Recently Relevant to Health Maintenance Insurance [facility] Advance Directives * DNR (Latest Code Status on File) Date Activated Date Inactivated Comments 04/10/2020 11:07 PM 04/12/2020 5:32 PM Care Teams Scudding Inspector Relationship Specialty Start Date End Date Brianne Ko NP 4 [facility] [address] [place] [address] PCP - General NURSE PRACTITIONER 04/10/20
--- OUTSIDE RECORDS SUMMARY | 2024-10-26 03:28 | XMS_ITS | Clinical Summary ---
Author Organization [facility] Address [address] [place] [address] Care Team Providers Care Candy Dipper Hand Name Role Phone Brianne Ko SANTOSH-BARRERA Primary Care Provider [phone] Source Comments [facility],non-owned Affiliates and Associated Physician Practices is amultiple site organization consisting of ambulatory clinics and hospital sitesin [place], [place], [place] and [place]. This disclosure is being madepursuant to the Care Everywhere program and may not contain all information available regarding this patient. Last updated 18.[facility] Allergies No known active allergies Medications * [...] Team Description 09/16/2024 Telephone Transitional Care at [facility] [address] [place] [address] Karly Upton RNinternet retailer 09/13/2024 Travel 09/12/2024 6:24 PM COOKING INSTRUCTOR - 09/14/2024 12:47 PM COOKING INSTRUCTOR Hospital Encounter [facility] EMERGENCY DEPARTMENT [address] [place] [address] Nacho Clay, Lauri Pino MD Aphasia (Primary [...] Comments Blood Pressure 172/72 09/14/2024 11:16 AM COOKING INSTRUCTOR Pulse 88 09/14/2024 11:17 AM COOKING INSTRUCTOR Temperature 36.7 C (98 F) 09/13/2024 10:47 PM COOKING INSTRUCTOR Respiratory Rate 18 09/14/2024 11:17 AM COOKING INSTRUCTOR Oxygen Saturation 95% 09/14/2024 11:17 AM COOKING INSTRUCTOR Inhaled Oxygen Concentration - - Weight 88.9 kg (196 lb) 09/13/2024 9:36 AM COOKING INSTRUCTOR Height 162.6 cm (5' 4 ) 09/13/2024 8:32 PM COOKING INSTRUCTOR Body Mass Index 37.03 09/13/2024 9:36 AM COOKING INSTRUCTOR Plan of Treatment Health Maintenance Due Date [...] CARDIAC EKG ORDER 09/14/2024 1:[address] HEAD WO CONTRAST Routine 09/14/2024 6 :00 AM COOKING INSTRUCTOR Transient alteration of awareness Facial droop CBC W/O DIFFERENTIAL STAT 09/14/2024 2:15 AM COOKING INSTRUCTOR BASIC METABOLIC PANEL (CALCIUM TOTAL) STAT 09/14/2024 2:15 AM COOKING INSTRUCTOR GLUCOSE - POINT OF CARE Routine 09/13/2024 10:46 PM COOKING INSTRUCTOR GLUCOSE - POINT OF CARE Routine 09/13/2024 5:46 PM COOKING INSTRUCTOR TROPONIN-I HIGH SENSITIVE STAT 09/13/2024 1:22 PM COOKING INSTRUCTOR Aphasia GLUCOSE - POINT OF CARE Routine 09/13/2024 12:19 PM COOKING INSTRUCTOR BLOOD TYPE VERIFICATION STAT 09/13/2024 8:49 AM COOKING INSTRUCTOR TROPONIN-I HIGH SENSITIVE REFLEX 1HOUR Timed 09/13/2024 8:49 AM COOKING INSTRUCTOR URINALYSIS W/MICROSCOPIC NO CULTURE STAT 09/13/2024 8:45 AM COOKING INSTRUCTOR HEMOGLOBIN A1C Add on 09/13/2024 6:00 AM COOKING INSTRUCTOR LIPID PROFILE STAT 09/13/2024 6:00 AM COOKING INSTRUCTOR CBC W/O DIFFERENTIAL STAT 09/13/2024 6:00 AM COOKING INSTRUCTOR BASIC METABOLIC PANEL (CALCIUM TOTAL) STAT 09/13/2024 6:00 AM COOKING INSTRUCTOR T4 FREE Routine 09/12/2024 7:10 PM COOKING INSTRUCTOR Aphasia Transient alteration of awareness Facial droop Hypothyroidism, unspecified type TSH REFLEX FREE T4 Routine 09/12/2024 7: 10 PM COOKING INSTRUCTOR Aphasia Transient alteration of awareness Facial droop Hypothyroidism, unspecified type PHOSPHORUS BLOOD Routine 09/12/2024 7:10 PM COOKING INSTRUCTOR Aphasia Transient alteration of awareness MAGNESIUM BLOOD Routine 09/12/2024 7:10 PM COOKING INSTRUCTOR Aphasia Transient alteration of awareness TROPONIN-I HIGH SENSITIVE BASELINE + 1HR STAT 09/12/2024 7:10 PM COOKING INSTRUCTOR EKG 12-LEAD STAT 09/12/2024 7:04 PM COOKING INSTRUCTOR Aphasia Transient alteration of awareness XR CHEST 1VW PORTABLE STAT 09/12/2024 6:54 PM COOKING INSTRUCTOR Aphasia Transient alteration of awareness CT ANGIO BRAIN NECK STROKE STAT 09/12/2024 6:42 PM COOKING INSTRUCTOR Aphasia Transient alteration of awareness TYPE + SCREEN PANEL STAT 09/12/2024 6 :39 PM COOKING INSTRUCTOR PT-INR [facility] STAT 09/12/2024 6:39 PM COOKING INSTRUCTOR COMPREHENSIVE METABOLIC PANEL STAT 09/12/2024 6:39 PM COOKING INSTRUCTOR CBC W AUTO DIFFERENTIAL STAT 09/12/2024 6:39 PM COOKING INSTRUCTOR CREATININE - POCT INTERFACED Routine 09/12/2024 6:36 PM COOKING INSTRUCTOR INR WHOLE BLOOD - POINT OF CARE (IP) STROKE Routine 09/12/2024 6:[address] BRAIN STROKE STAT 09/12/2024 6:28 PM COOKING INSTRUCTOR Aphasia Transient alteration of awareness from Last 3 Months Results * CARDIAC EKG ORDER (09/14/2024 1:29 PM COOKING INSTRUCTOR) Narrative 09/14/2024 1:29 PM COOKING INSTRUCTOR Ordered by an unspecified provider. Scanned Document CARDIAC SERVICES ORD ERABLES * CT Head Wo Contrast (09/14/2024 6:00 AM COOKING INSTRUCTOR) Anatomical Region Laterality Modality Head Computed Tomogra phy 09/14/2024 6:00 AM COOKING INSTRUCTOR Impressions 09/14/2024 10:22 AM COOKING INSTRUCTOR IMPRESSION: 1.No acute intracranial hemorrhage, midline shift, or significant mass effect. > Dictated by Jaswant Anaya MD (Anti Tank Missileman) I, Luan Rouse MD have personally reviewed and interpreted this examination/study. > Interpreting Provider: Luan Rouse MD on 09/14/2024 10:22 AM Narrative 09/14/2024 10:22 AM COOKING INSTRUCTOR PROCEDURE: CT HEAD WO CONTRAST, DATE/TIME OF EXAM: 09/14/2024 6:00 AM, LOCATION [facility] INDICATION: R40.4: Transient alteration of awareness [...] DATE/TIME OF EXAM: 09/14/2024 6:00 AM, LOCATION [facility] INDICATION: R40.4: Transient alteration of awareness [...] effect. > Dictated by Jaswant Anaya MD (Anti Tank Missileman) I, Luan Rouse MD have personally reviewed and interpreted this examination/study. > Interpreting Provider: Luan Rouse MD on 09/14/2024 10:22 AM Lauri Girard MD CT ORDERABLES * (ABNORMAL) CBC W/O DIFFERENTIAL (09/14/2024 2:15 AM COOKING INSTRUCTOR) Only the most recent of2 resultswithin the time period is included. [facility] WBC 11.4(H) 4.0 - 10.7 x10E9/L 09/14/2024 3:14 AM [facility] RBC Count 4.80 3.90 - 5.20 x10E12/L 09/14/2024 3:14 AM [facility] Hemoglobin 14.4 11.9 - 15.8 g/dL 09/14/2024 3:14 AM [facility] Hematocrit 43.4 34.8 - 46.1 % 09/14/2024 3:14 AM [facility] MCV 90.4 80.0 - 98.0 fL 09/14/2024 3:14 AM [facility] MCH 30.0 26.7 - 33.6 pg 09/14/2024 3:14 AM [facility] MCHC 33.2 31.7 - 36.3 g/dL 09/14/2024 3:14 AM [facility] RDW-CV 13.9 11.3 - 14.8 % 09/14/2024 3:14 AM [facility] Platelet Count 09/14/2024 3:14 AM [facility] Comment:Platelets clumped on slide but appears decreased. Recommend repeat with a sodium citrate blue top tube. MPV 09/14/2024 3:14 AM [facility] Comment:Unable to report Blood BLOOD SPECIMEN / Unknown Venipuncture / Unknown 09/14/2024 2:15 AM COOKING INSTRUCTOR 09/14/2024 2:40 AM [facility] Nacho Clay DO LAB - HEMATOLOGY ORD ERABLES [facility] [address] [place] [address], [facility] [phone] * (ABNORMAL) BASIC METABOLIC PANEL (CALCIUM TOTAL) (09/14/2024 2:15 AM COOKING INSTRUCTOR) Only the most recent of2 resultswithin the time period is included. [facility] BUN 17 7 - 26 mg/dL 09/14/2024 3:07 AM [facility] Creatinine 0.90 0.56 - 0.96 mg/dL 09/14/2024 3:07 AM [facility] Sodium 142 136 - 145 mmol/L 09/14/2024 3:07 AM [facility] Potassium 3.4(L) 3.5 - 4.5 mmol/L 09/14/2024 3:07 AM [facility] Chloride 104 98 - 107 mmol/L 09/14/2024 3:07 AM [facility] CO2 23 22 - 29 mmol/L 09/14/2024 3:07 AM [facility] Glucose 205(H) 70 - 99 mg/dL 09/14/2024 3:07 AM [facility] Calcium 9.7 8.4 - 10.2 mg/dL 09/14/2024 3:07 AM [facility] Anion Gap 15 6 - 16 09/14/2024 3:07 AM [facility] BUN/Creatinine Ratio 19 7 - 23 09/14/2024 3:07 AM [facility] Osmolality Calculated 301(H) 275 - 295 mOsm/kg 09/14/2024 3:07 AM [facility] eGFR by CKD-EPI 63(L) >=90 mL/min/1.7 3 m2 09/14/2024 3:07 AM [facility] Blood BLOOD SPECIMEN / Unknown Venipuncture / Unknown 09/14/2024 2:15 AM COOKING INSTRUCTOR 09/14/2024 2:40 AM [facility] Nacho Clay DO LAB - CHEMISTRY KAITLYNN SWARTZ Performing Organization Address City/State/[facility] Co de Phone Number [facility] [address] [place] [address], [facility] [phone] * (ABNORMAL) GLUCOSE - POINT OF CARE (09/13/2024 10:46 PM COOKING INSTRUCTOR) Only the most recent of3 resultswithin the time period is included. Glucose WB/POC 133(H) 70 - 99 mg/dL 09/13/2024 10:47 PM [facility] Specimen Type Cap Fingerstick 2023 10:47 PM [facility] Blood BLOOD SPECIMEN / Unknown 09/13/2024 10:46 PM COOKING INSTRUCTOR 09/13/2024 10:47 PM COOKING INSTRUCTOR Lauri Girard MD LAB - POINT OF CARE ORDERABLES Performing Organization Address City/[facility]/ZIP Co de Phone Number [address] [address], [facility] [phone] * (ABNORMAL) TROPONIN-I HIGH SENSITIVE (09/13/2024 1:22 PM COOKING INSTRUCTOR) Troponin I High Sensitive 18(H) <=14 ng/L 09/13/2024 2:08 PM COOKING INSTRUCTOR [facility] Blood BLOOD SPECIMEN / Unknown Venipuncture / Unknown 09/13/2024 1:22 PM COOKING INSTRUCTOR 09/13/2024 1:33 PM COOKING INSTRUCTOR Luari Girard MD LAB - CHEMISTRY ORDAshly SWARTZ Performing Organization Address [facility] Co de Phone Number [address] [address], [facility] [phone] * (ABNORMAL) TROPONIN-I HIGH SENSITIVE REFLEX 1HOUR (09/13/2024 8:49 AM COOKING INSTRUCTOR) Troponin I High Sensitive 20(H) <=14 ng/L 09/13/2024 9:34 AM COOKING INSTRUCTOR [facility] Delta Troponin I HS 09/13/2024 9:34 AM COOKING INSTRUCTOR [facility] Comment:Delta value intentio turner not calculated. Baseline to 1 hour specimen collection interval exceeded. Blood BLOOD SPECIMEN / Unknown Venipuncture / Unknown 09/13/2024 8:49 AM COOKING INSTRUCTOR 09/13/2024 8:55 AM COOKING INSTRUCTOR Nacho Clay DO LAB - CHEMISTRY ORDAshly SWARTZ Performing Organization Address City/[facility]/ZIP Co de Phone Number [address] [address], [facility] [phone] * BLOOD TYPE VERIFICATION (09/13/2024 8:49 AM COOKING INSTRUCTOR) ABO Rh A POS 09/13/2024 9:4 9 AM COOKING INSTRUCTOR [facility] BLOOD [facility]ANK LAB Blood Bank BLOOD SPECIMEN / Unknown Venipuncture / Unknown 09/13/2024 8:49 AM COOKING INSTRUCTOR 09/13/2024 9:05 AM COOKING INSTRUCTOR Nacho Clay DO LAB - BLOOD BANK ORD ERABLES [facility] LAB [address] [place] [address], [facility] [phone] * (ABNORMAL) URINALYSIS W/MICROSCOPIC NO CULTURE (09/13/2024 8:45 AM COOKING INSTRUCTOR) Color UA Rowena(A) Straw, Yellow 09/13/2024 9:13 AM [facility] Clarity UA Cloudy(A) Clear 09/13/2024 9:13 AM [facility] Specific [place] UA 1.034(H) 1.005 - 1.030 09/13/2024 9:13 AM [facility] pH UA 7.0 5.0 - 8.0 pH 09/13/2024 9:13 AM [facility] Protein UA 2+(A) Negative 09/13/2024 9:13 AM [facility] Glucose UA Negative Negative 09/13/2024 9:13 AM [facility] Ketone UA Negative Negative 09/13/2024 9:13 AM [facility] Bilirubin UA Negative Negative 09/13/2024 9:13 AM [facility] Blood UA 1+(A) Negative 09/13/2024 9:13 AM [facility] Nitrite UA Negative Negative 09/13/2024 9:13 AM [facility] Leukocyte Esterase Trace(A) Negative 09/13/2024 9:13 AM [facility] Urobilinogen UA 2.0(A) Negative mg/dL 09/13/2024 9:13 AM [facility] RBC UA 21-50(A) None Seen, 0-2, 3-5 /HPF 09/13/2024 9:13 AM [facility] WBC UA 6-10(A) None Seen, 0-5 /HPF 09/13/2024 9:13 AM [facility] Bacteria UA 3+(A) None /HPF 09/13/2024 9:13 AM [facility] Squamous Epithelial Cells UA 3-5 None Seen, 0-2, 3-5 /HPF 09/13/2024 9:13 AM [facility] Mucus UA 1+ /LPF 09/13/2024 9:13 AM [facility] Amorphous Crystals Few(A) None /HPF 09/13/2024 9:13 AM [facility] Urine URINE SPECIMEN OBTAINED BY CLEAN CATCH PROCEDURE / Unknown Collection / Unknown 09/13/2024 8:45 AM COOKING INSTRUCTOR 09/13/2024 8:55 AM COOKING INSTRUCTOR Narrative [facility] - 09/13/2024 9:13 AM COOKING INSTRUCTOR Nacho Clay DO LAB - URINALYSIS ORD ERABLES [facility] [address] [place] [address], [facility] [phone] * (ABNORMAL) HEMOGLOBIN A1C (09/13/2024 6:00 AM COOKING INSTRUCTOR) Hemoglobin A1c 6.8(H) <=5.6 % 09/14/2024 9:53 AM [facility] Estimated Average Glucose 148 mg/dL 09/14/2024 9:53 AM [facility] Comment: HbA1c Interpretation: Normal : < 5.7% Pre-diabetes: 5.7-6.4% Diabetes: Equal to or greater than 6.5% Test results diagnostic of diabetes should be repeated for confirmation. Treatment target values recommended by ADA and other clinical organizations should be used to evaluate metabolic control in patients. Reference: [place] [employer], Standards of Care in Diabetes -2020 In patients 70 years and older consider HbA1c target range of 7.0-7.5% (Reference: Neel Galvez et al. JAMDA. 2012) The Sebia assay for the measurement of HbA1c is a National Glycohemoglobin Standardization Program (NGSP) certified method. Blood BLOOD SPECIMEN / Unknown Venipuncture / Unknown 09/13/2024 6:00 AM COOKING INSTRUCTOR 09/13/2024 8:53 PM COOKING INSTRUCTOR Kareem Bagley MD LAB - CHEMISTRY ORDE RABLES Performing Organization Address City/[facility]/ZIP Co de Phone Number [facility] [address] [place] [address], [facility] [phone] * (ABNORMAL) LIPID PROFILE (09/13/2024 6:00 AM COOKING INSTRUCTOR) Cholesterol Total 170 <200 mg/dL 09/13/2024 6:49 AM [facility] HDL 55 >40 mg/dL 09/13/2024 6:49 AM [facility] Comment: ATP III Classification of HDL Cholesterol: <40 mg/dL: Considered a major risk factor. >60 mg/dL: Considered a negative risk factor. LDL Calculated 82 <100 mg/dL 09/13/2024 6:49 AM [facility] Comment: ATP III Classification of LDL Cholesterol: <100 mg/dL: Optimal 100 - 129 mg/dL: Near Optimal/Above Optimal 130 - 159 mg/dL: Borderline High 160 - 189 mg/dL: High >190 mg/dL: Very High Triglycerides 163(H) <150 mg/dL 09/13/2024 6:49 AM [facility] Comment: ATP III Classification of Triglycerides: <150 mg/dL: Normal 150 - 199 mg/dL: Borderline High 200 - 400 mg/dL: High >500 mg/dL: Very High Blood BLOOD SPECIMEN / Unknown Venipuncture / Unknown 09/13/2024 6:00 AM COOKING INSTRUCTOR 09/13/2024 6:27 AM COOKING INSTRUCTOR Nacho Clay DO LAB - CHEMISTRY KAITLYNN SWARTZ [facility] [address] [place] [address], [place] [phone] * TROPONIN-I HIGH SENSITIVE BASELINE + 1HR (09/12/2024 7:10 PM COOKING INSTRUCTOR) Troponin I High Sensitive 12 <=14 ng/L 09/12/2024 7:49 PM [facility] Blood BLOOD SPECIMEN / Unknown Venipuncture / Unknown 09/12/2024 7:10 PM COOKING INSTRUCTOR 09/12/2024 7:30 PM COOKING INSTRUCTOR Nacho Clay DO LAB - CHEMISTRY ORDE SHERIDAN Performing Organization Address City/[facility]/ZIP Co de Phone Number [address] [address], [place] [phone] * (ABNORMAL) TSH REFLEX FREE T4 (09/12/2024 7:10 PM COOKING INSTRUCTOR) TSH 24.558(H) 0.350 - 4.940 uIU/mL 09/12/2024 9:14 PM COOKING INSTRUCTOR [facility] Blood BLOOD SPECIMEN / Unknown Venipuncture / Unknown 09/12/2024 7:10 PM COOKING INSTRUCTOR 09/12/2024 7:30 PM COOKING INSTRUCTOR Lauri Girard MD LAB - CHEMISTRY ORDAshly SWARTZ Performing Organization Address [facility] Co de Phone Number [address] [address], [place] [phone] * PHOSPHORUS BLOOD (09/12/2024 7:10 PM COOKING INSTRUCTOR) Phosphorus 3.2 2.9 - 5.1 mg/dL 09/12/2024 7:50 PM COOKING INSTRUCTOR [facility] Blood BLOOD SPECIMEN / Unknown Venipuncture / Unknown 09/12/2024 7:10 PM COOKING INSTRUCTOR 09/12/2024 7:30 PM COOKING INSTRUCTOR Lauri Girard MD LAB - CHEMISTRY ORDE SHERIDAN [address] [address], [place] [phone] * MAGNESIUM BLOOD (09/12/2024 7:10 PM COOKING INSTRUCTOR) Magnesium 1.8 1.6 - 2.6 mg/dL 09/12/2024 7:50 PM COOKING INSTRUCTOR [facility] Blood BLOOD SPECIMEN / Unknown Venipuncture / Unknown 09/12/2024 7:10 PM COOKING INSTRUCTOR 09/12/2024 7:30 PM COOKING INSTRUCTOR Lauri Girard MD LAB - CHEMISTRY KAITLYNN SWARTZ Performing Organization Address City/[facility]/ZIP Co de Phone Number [facility] [address] [place] [phone], [facility] [phone] * T4 FREE (09/12/2024 7:10 PM COOKING INSTRUCTOR) Pathologist [facility] T4 Free 0.7 0.7 - 1.5 ng/dL 09/12/2024 9:47 PM COOKING INSTRUCTOR [facility] Blood BLOOD SPECIMEN / Unknown Venipuncture / Unknown 09/12/2024 7:10 PM COOKING INSTRUCTOR 09/12/2024 7:30 PM COOKING INSTRUCTOR Lauri Girard MD LAB - CHEMISTRY KAITLYNN SWARTZ Performing Organization Address [facility] Co de Phone Number [address] [address], [facility] [phone] * EKG 12-LEAD (09/12/2024 7:04 PM COOKING INSTRUCTOR) [facility] Ventricular Rate 97 BPM [facility] MUSE Atrial Rate 97 BPM [facility] MUSE P-R Interval 186 ms [facility] MUSE QRS Duration ms 106 ms H MUSE Q-T Interval ms 388 ms [facility] MUSE QTC Calculation (Bezet) 492 ms SL MUSE Calculated P [place] 60 degrees SL MUSE Calculated R [place] -29 degrees [facility] MUSE Calculated T [place] 94 degrees [facility] MUSE Interpretation EKG NORMAL SINUS RHYTHM MINIMAL VOLTAGE CRITERIA FOR LVH, MAY BE NORMAL VARIANT ( Baldemar product ) ANTEROSEPTAL INFARCT , AGE UNDETERMINED ABNORMAL ECG NO PREVIOUS ECGS AVAILABLE Confirmed by JEREMIAH CANNON MD ([id number]) on 09/15/2024 2:33:28 PM [facility] MUSE 09/12/2024 7:04 PM COOKING INSTRUCTOR 09/15/2024 2:33 PM COOKING INSTRUCTOR Nacho Clay DO ECG ORDERABLES Performing Organization Address [facility]/ZIP Co de Phone Number [facility] MUSE * XR Chest 1Vw Portable (09/12/2024 6:54 PM COOKING INSTRUCTOR) Anatomical Region Laterality Modality Chest Digital Radiogra phy 09/12/2024 7:53 PM COOKING INSTRUCTOR Narrative 09/12/2024 8:45 PM COOKING INSTRUCTOR PROCEDURE: XR CHEST 1VW PORTABLE, DATE/TIME OF EXAM: 09/12/2024 7:05 PM, LOCATION [facility] INDICATION: R47.01: Aphasia R40.4: Transient alteration [...] visualized. Report dictated by Maikel Marr MD (residential advisor). Klarissa Verma MD have personally reviewed and interpreted this examination/study. > Interpreting Provider: Klarissa Munoz MD on 09/12/2024 8:45 PM Procedure Note Klarissa Munoz MD - 09/12/2024 PROCEDURE: XR CHEST 1VW PORTABLE, DATE/TIME OF EXAM: 09/12/2024 7:05PM, LOCATION [facility] INDICATION: R47.01: Aphasia R40.4: Transient alteration [...] visualized. Report dictated by Maikel Marr MD (residential advisor). Klarissa Verma MD have personally reviewed and interpreted this examination/study. > Interpreting Provider: Klarissa Munoz MD on 09/12/2024 8:45 PM Nacho Clay DO DIAGNOSTIC IMAGING O RDERABLES * CT ANGIO BRAIN NECK STROKE (09/12/2024 6:42 PM COOKING INSTRUCTOR) Anatomical Region Laterality Modality Head Computed Tomogra phy 09/12/2024 6:57 PM COOKING INSTRUCTOR Impressions 09/12/2024 7:19 PM COOKING INSTRUCTOR IMPRESSION: 1. No acute intracranial hemorrhage. 2. No large arterial occlusions or significant stenoses identified in the head or neck. Viz.AI was used for large vessel occlusion detection. > Interpreting Provider: Milagros Flores MD on 09/12/2024 7:19 PM Narrative 09/12/2024 7:19 PM COOKING INSTRUCTOR PROCEDURE: CT ANGIO BRAIN NECK STROKE, DATE/TIME OF EXAM: 09/12/2024 6:43 PM, LOCATION [facility] INDICATION: Code Stroke ADDITIONAL CLINICAL INFORMATION: [...] STROKE, DATE/TIME OF EXAM: 46:43 PM, LOCATION [facility] INDICATION: Code Stroke ADDITIONAL CLINICAL INFORMATION: [...] Nacho Clay DO CT ORDERABLES * PT-INR [facility] (09/12/2024 6:39 PM COOKING INSTRUCTOR) Pathologist [facility] PT 12.9 12.1 - 14.8 Seconds 09/12/2024 7:05 PM COOKING INSTRUCTOR [facility] INR 1.0 See Comment 09/12/2024 7:05 PM [facility] Comment:The suggested therap eutic range for standard coumadin (warfarin) therapy is an INR of 2.0-3.0. For high-risk patients (Mechanical Mitral Valve Prosthesis, etc.), the suggested prophylactic therapeutic range is an INR of 2.5-3.5. Blood BLOOD SPECIMEN / Unknown Venipuncture / Unknown 09/12/2024 6:39 PM COOKING INSTRUCTOR 09/12/2024 6:45 PM COOKING INSTRUCTOR Nacho Clay DO LAB - COAGULATION OR DERABLES [facility] [address] [place] [address], [facility] [phone] * TYPE + SCREEN PANEL (09/12/2024 6:39 PM COOKING INSTRUCTOR) Antibody Screen NEG 7:42 PM COOKING INSTRUCTOR [facility] BLO[facility] LAB ABO Rh A POS 09/12/2024 7:42 PM COOKING INSTRUCTOR [facility] LAB Blood Bank BLOOD SPECIMEN / Unknown Venipuncture / Unknown 09/12/2024 6:39 PM COOKING INSTRUCTOR 09/12/2024 6:50 PM COOKING INSTRUCTOR Nacho Clay DO LAB - BLOOD BANK ORD ERABLES [facility] [address] [place] [address], [facility] [phone] * CBC W AUTO DIFFERENTIAL (09/12/2024 6:39 PM COOKING INSTRUCTOR) WBC 6.5 4.0 - 10.7 x10E9/L 09/12/2024 7:23 PM [facility] RBC Count 4.29 3.90 - 5.20 x10E12/L 09/12/2024 7:23 PM [facility] Hemoglobin 12.9 11.9 - 15.8 g/dL 09/12/2024 7:23 PM [facility] Hematocrit 38.5 34.8 - 46.1 % 09/12/2024 7:23 PM [facility] MCV 89.7 80.0 - 98.0 fL 09/12/2024 7:23 PM [facility] MCH 30.1 26.7 - 33.6 pg 09/12/2024 7:23 PM [facility] MCHC 33.5 31.7 - 36.3 g/dL 09/12/2024 7:23 PM [facility] RDW-CV 13.8 11.3 - 14.8 % 09/12/2024 7:23 PM [facility] Platelet Count 09/12/2024 7:23 PM [facility] Comment:Platelets clumped on slide but appears adequate. Recommend repeat with a sodium citrate blue top tube. MPV 09/12/2024 7:23 PM [facility] Comment:Unable to report Neutrophil % 68.5 41.0 - 74.0 % 09/12/2024 7:23 PM [facility] Lymphocyte % 21.5 17.0 - 47.0 % 09/12/2024 7:23 PM [facility] Monocyte % 7.3 3.0 - 11.0 % 09/12/2024 7:23 PM [facility] Eosinophil % 2.2 0.0 - 7.0 % 09/12/2024 7:23 PM [facility] Basophil % 0.3 0.0 - 1.6 % 09/12/2024 7:23 PM [facility] Immature Granulocytes % 0.2 0.0 - 1.0 % 09/12/2024 7:23 PM [facility] Neutrophil Absolute 4.45 1.60 - 7.50 x10E9/L 09/12/2024 7:23 PM [facility] Lymphocyte Absolute 1.39 1.00 - 4.40 x10E9/L 09/12/2024 7:23 PM [facility] Monocyte Absolute 0.47 0.15 - 1.00 x10E9/L 09/12/2024 7:23 PM [facility] Eosinophil Absolute 0.14 0.00 - 0.60 x10E9/L 09/12/2024 7:23 PM [facility] Basophil Absolute 0.02 0.00 - 0.13 x10E9/L 09/12/2024 7:23 PM [facility] Blood BLOOD SPECIMEN / Unknown Venipuncture / Unknown 09/12/2024 6:39 PM [employer] 09/12/2024 6:45 PM [employer] Nacho Clay DO LAB - HEMATOLOGY ORD ERABLES [facility] [address] [place] [address], [facility] [phone] * (ABNORMAL) COMPREHENSIVE METABOLIC PANEL (09/12/2024 6:39 PM [employer]) BUN 20 7 - 26 mg/dL 09/12/2024 7:11 PM [facility] Creatinine 0.85 0.56 - 0.96 mg/dL 09/12/2024 7:11 PM [facility] Sodium 142 136 - 145 mmol/L 09/12/2024 7:11 PM [facility] Potassium 4.3 3.5 - 4.5 mmol/L 09/12/2024 7:11 PM [facility] Chloride 107 98 - 107 mmol/L 09/12/2024 7:11 PM [facility] CO2 26 22 - 29 mmol/L 09/12/2024 7:11 PM [facility] Glucose 152(H) 70 - 99 mg/dL 09/12/2024 7:11 PM [facility] Calcium 9.2 8.4 - 10.2 mg/dL 09/12/2024 7:11 PM [facility] Protein Total 7.2 6.0 - 8.3 g/dL 09/12/2024 7:11 PM [facility] Albumin 4.1 3.4 - 5.0 g/dL 09/12/2024 7:11 PM [facility] Bilirubin Total 0.6 0.2 - 1.2 mg/dL 09/12/2024 7:11 PM [facility] Alkaline Phosphatase 76 40 - 150 U/L 09/12/2024 7:11 PM [facility] ALT 14 5 - 55 U/L 09/12/2024 7:11 PM [facility] AST 18 5 - 34 U/L 09/12/2024 7:11 PM [facility] Anion Gap 9 6 - 16 09/12/2024 7:11 PM [facility] BUN/Creatinine Ratio 24(H) 7 - 23 09/12/2024 7:11 PM [facility] Osmolality Calculated 300(H) 275 - 295 mOsm/kg 09/12/2024 7:11 PM [facility] Albumin/Globulin Ratio 1.3 1.1 - 2.3 09/12/2024 7:11 PM [facility] eGFR by CKD-EPI 68(L) >=90 mL/min/1.7 3 m2 09/12/2024 7:11 PM [facility] Blood BLOOD SPECIMEN / Unknown Venipuncture / Unknown 09/12/2024 6:39 PM [employer] 09/12/2024 6:45 PM [facility] Nacho Clay DO LAB - CHEMISTRY ORDE [facility] [address] [place] [address], [facility] [phone] * CREATININE - POCT INTERFACED (09/12/2024 6:36 PM [employer]) Creatinine POCT 0.54 0.30 - 1.30 mg/dL 09/12/2024 6:37 PM [employer] [facility] eGFR >90 >=90 mL/min/1.7 3 m2 09/12/2024 6:37 PM [employer] [facility] Blood BLOOD SPECIMEN / Unknown 09/12/2024 6:36 PM [employer] 09/12/2024 6:37 PM [employer] Nacho Clay DO LAB - POINT OF CARE ORDERABLES [facility] [address] [place] [id number], [facility] [phone] * INR WHOLE BLOOD - POINT OF CARE (IP) STROKE (09/12/2024 6:33 PM [employer]) INR 0.9 0.9 - 1.2 09/12/2024 6:36 PM [employer] [facility] Device [id number] 09/12/2024 6:36 PM [employer] [facility] Home Health Assistant ID [id number] 09/12/2024 6:36 PM [employer] [facility] Blood BLOOD SPECIMEN / Unknown 09/12/2024 6:33 PM [employer] 09/12/2024 6:36 PM [employer] Nacho Claudio Clay LAB - POINT OF CARE ORDERABLES [facility] [address] [place] [id number], [place] [phone] * CT BRAIN - Stroke (09/12/2024 6:28 PM [employer]) Anatomical Region Laterality Modality Head Computed Tomogra phy 09/12/2024 6:30 PM [employer] Impressions 09/12/2024 6:50 PM [employer] IMPRESSION: 1.No acute intracranial hemorrhage. 2.Please note [...] 09/12/2024 6:50 PM Narrative 09/12/2024 6:50 PM [employer] PROCEDURE: CT BRAIN STROKE, DATE/TIME OF EXAM: 09/12/2024 6:29 PM, LOCATION [facility] INDICATION: Code Stroke EXAMINATION: Computed tomography [...] DATE/TIME OF EXAM: 09/12/2024 6:29 PM, LOCATION [facility] INDICATION: Code Stroke EXAMINATION: Computed tomography [...] 6:45 PM 09/14/2024 1:52 PM Care Teams Candy Dipper Hand Relationship Specialty Start Date End Date Brianne Ko APRN-BARRERA [address] [facility] [address] [place] [address] PCP - General Nurse Practitioner Family 09/12/24
--- OUTSIDE RECORDS SUMMARY | 2024-10-26 03:28 | XMS_ITS | Referral Summary ---
Author Organization [facility] Address [address] [place] [address] Care Team Providers Care Tanning Salon Attendant Name Role Phone Brianne Ko APRN-BARRERA Primary Care Provider [phone] Source Comments [facility],non-owned Affiliates and Associated Physician Practices is amultiple site organization consisting of ambulatory clinics and hospital sitesin [place], [place], [place] and [place]. This disclosure is being madepursuant to the Care Everywhere program and may not contain all information available regarding this patient. Last updated 18.[facility] Encounters Date Type Department Care Team Description 09/16/2024 Telephone Transitional Care at [facility] [address] [place] [phone] Karly Upton RNcrm business analyst 09/12/2024 6:24 PM LAND DEVELOPMENT PROJECT MANAGER - 09/14/2024 12:[address] [facility] Hospital Encounter [facility] [address] [place] [phone] Nacho Clay, Lauri Pino MD Aphasia (Primary [...] Comments Blood Pressure 172/72 09/14/2024 11:16 AM LAND DEVELOPMENT PROJECT MANAGER Pulse 88 09/14/2024 11:17 AM LAND DEVELOPMENT PROJECT MANAGER Temperature 36.7 C (98 F) 09/13/2024 10:47 PM LAND DEVELOPMENT PROJECT MANAGER Respiratory Rate 18 09/14/2024 11:17 AM LAND DEVELOPMENT PROJECT MANAGER Oxygen Saturation 95% 09/14/2024 11:17 AM LAND DEVELOPMENT PROJECT MANAGER Inhaled Oxygen Concentration - - Weight 88.9 kg (196 lb) 09/13/2024 9:36 AM LAND DEVELOPMENT PROJECT MANAGER Height 162.6 cm (5' 4 ) 09/13/2024 8:32 PM LAND DEVELOPMENT PROJECT MANAGER Body Mass Index 37.03 09/13/2024 9:36 AM LAND DEVELOPMENT PROJECT MANAGER Functional Status Functional Status Response Date of [...] CARDIAC EKG ORDER 09/14/2024 1:2 9 PM LAND DEVELOPMENT PROJECT MANAGER CT HEAD WO CONTRAST Routine 09/14/2024 6 :00 AM LAND DEVELOPMENT PROJECT MANAGER Transient alteration of awareness Facial droop CBC W/O DIFFERENTIAL STAT 09/14/2024 2:15 AM LAND DEVELOPMENT PROJECT MANAGER BASIC METABOLIC PANEL (CALCIUM TOTAL) STAT 09/14/2024 2:15 AM LAND DEVELOPMENT PROJECT MANAGER GLUCOSE - POINT OF CARE Routine 09/13/2024 10:46 PM LAND DEVELOPMENT PROJECT MANAGER GLUCOSE - POINT OF CARE Routine 09/13/2024 5:46 PM LAND DEVELOPMENT PROJECT MANAGER TROPONIN-I HIGH SENSITIVE STAT 09/13/2024 1:22 PM LAND DEVELOPMENT PROJECT MANAGER Aphasia GLUCOSE - POINT OF CARE Routine 09/13/2024 12:19 PM LAND DEVELOPMENT PROJECT MANAGER BLOOD TYPE VERIFICATION STAT 09/13/2024 8:49 AM LAND DEVELOPMENT PROJECT MANAGER TROPONIN-I HIGH SENSITIVE REFLEX 1HOUR Timed 09/13/2024 8:49 AM LAND DEVELOPMENT PROJECT MANAGER URINALYSIS W/MICROSCOPIC NO CULTURE STAT 09/13/2024 8:45 AM LAND DEVELOPMENT PROJECT MANAGER HEMOGLOBIN A1C Add on 09/13/2024 6:00 AM LAND DEVELOPMENT PROJECT MANAGER LIPID PROFILE STAT 09/13/2024 6:00 AM LAND DEVELOPMENT PROJECT MANAGER CBC W/O DIFFERENTIAL STAT 09/13/2024 6:00 AM LAND DEVELOPMENT PROJECT MANAGER BASIC METABOLIC PANEL (CALCIUM TOTAL) STAT 09/13/2024 6:00 AM LAND DEVELOPMENT PROJECT MANAGER T4 FREE Routine 09/12/2024 7:10 PM LAND DEVELOPMENT PROJECT MANAGER Aphasia Transient alteration of awareness Facial droop Hypothyroidism, unspecified type TSH REFLEX FREE T4 Routine 09/12/2024 7: 10 PM LAND DEVELOPMENT PROJECT MANAGER Aphasia Transient alteration of awareness Facial droop Hypothyroidism, unspecified type PHOSPHORUS BLOOD Routine 09/12/2024 7:10 PM LAND DEVELOPMENT PROJECT MANAGER Aphasia Transient alteration of awareness MAGNESIUM BLOOD Routine 09/12/2024 7:10 PM LAND DEVELOPMENT PROJECT MANAGER Aphasia Transient alteration of awareness TROPONIN-I HIGH SENSITIVE BASELINE + 1HR STAT 09/12/2024 7:10 PM LAND DEVELOPMENT PROJECT MANAGER EKG 12-LEAD STAT 09/12/2024 7:04 PM LAND DEVELOPMENT PROJECT MANAGER Aphasia Transient alteration of awareness XR CHEST 1VW PORTABLE STAT 09/12/2024 6:54 PM LAND DEVELOPMENT PROJECT MANAGER Aphasia Transient alteration of awareness CT ANGIO BRAIN NECK STROKE STAT 09/12/2024 6:42 PM LAND DEVELOPMENT PROJECT MANAGER Aphasia Transient alteration of awareness TYPE + SCREEN PANEL STAT 09/12/2024 6 :39 PM LAND DEVELOPMENT PROJECT MANAGER PT-INR [facility] STAT 09/12/2024 6:39 PM LAND DEVELOPMENT PROJECT MANAGER COMPREHENSIVE METABOLIC PANEL STAT 09/12/2024 6:39 PM LAND DEVELOPMENT PROJECT MANAGER CBC W AUTO DIFFERENTIAL STAT 09/12/2024 6:39 PM LAND DEVELOPMENT PROJECT MANAGER CREATININE - POCT INTERFACED Routine 09/12/2024 6:36 PM LAND DEVELOPMENT PROJECT MANAGER INR WHOLE BLOOD - POINT OF CARE (IP) STROKE Routine 09/12/2024 6:33 PM LAND DEVELOPMENT PROJECT MANAGER CT BRAIN STROKE STAT 09/12/2024 6:28 PM LAND DEVELOPMENT PROJECT MANAGER Aphasia Transient alteration of awareness from Last 3 Months Results * CARDIAC EKG ORDER (09/14/2024 1:29 PM LAND DEVELOPMENT PROJECT MANAGER) Narrative 09/14/2024 1:29 PM LAND DEVELOPMENT PROJECT MANAGER Ordered by an unspecified provider. Scanned Document CARDIAC SERVICES ORD ERABLES * CT Head Wo Contrast (09/14/2024 6:00 AM LAND DEVELOPMENT PROJECT MANAGER) Anatomical Region Laterality Modality Head Computed Tomogra phy 09/14/2024 6:00 AM LAND DEVELOPMENT PROJECT MANAGER Impressions 09/14/2024 10:22 AM LAND DEVELOPMENT PROJECT MANAGER IMPRESSION: 1.No acute intracranial hemorrhage, midline shift, or significant mass effect. > Dictated by Jaswant Anaya MD (Inside Finisher) I, Luan Rouse MD have personally reviewed and interpreted this examination/study. > Interpreting Provider: Luan Rouse MD on 09/14/2024 10:22 AM Narrative 09/14/2024 10:22 AM LAND DEVELOPMENT PROJECT MANAGER PROCEDURE: CT HEAD WO CONTRAST, DATE/TIME OF [...] effect. > Dictated by Jaswant Anaya MD (Inside Finisher) I, Luan Rouse MD have personally reviewed and interpreted this examination/study. > Interpreting Provider: Luan Rouse MD on 09/14/2024 10:22 AM Lauri Girard MD CT ORDERABLES * (ABNORMAL) CBC W/O DIFFERENTIAL (09/14/2024 2:15 AM LAND DEVELOPMENT PROJECT MANAGER) Only the most recent of2 resultswithin the time period is included. WBC 11.4(H) 4.0 - 10.7 x10E9/L 09/14/2024 3:14 AM LAND DEVELOPMENT PROJECT MANAGER [facility] RBC Count 4.80 3.90 - 5.20 x10E12/L 09/14/2024 3:14 AM LAND DEVELOPMENT PROJECT MANAGER [facility] Hemoglobin 14.4 11.9 - 15.8 g/dL 09/14/2024 3:14 AM [facility] Hematocrit 43.4 34.8 - 46.1 % 09/14/2024 [...] Unknown Venipuncture / Unknown 09/14/2024 2:15 AM LAND DEVELOPMENT PROJECT MANAGER 09/14/2024 2:40 AM LAND DEVELOPMENT PROJECT MANAGER Nacho Clay DO LAB - HEMATOLOGY ORD ERABLES [facility] [address] [place] [address], [facility] [phone] * (ABNORMAL) BASIC METABOLIC PANEL (CALCIUM TOTAL) (09/14/2024 2:15 AM LAND DEVELOPMENT PROJECT MANAGER) Only the most recent of2 resultswithin the [...] Unknown Venipuncture / Unknown 09/14/2024 2:15 AM LAND DEVELOPMENT PROJECT MANAGER 09/14/2024 2:40 AM LAND DEVELOPMENT PROJECT MANAGER Nacho Clay DO LAB - CHEMISTRY ORDE SHERIDAN [facility] [address] [place] [address], [place] [phone] * (ABNORMAL) GLUCOSE - POINT OF CARE (09/13/2024 10:46 PM LAND DEVELOPMENT PROJECT MANAGER) Only the most recent of3 resultswithin the time period is included. [facility] Glucose WB/POC 133(H) 70 - 99 mg/dL 09/13/2024 10:47 PM [facility] Specimen Type Cap Fingerstick 2023 10:47 PM [facility] Blood BLOOD SPECIMEN / Unknown 09/13/2024 10:46 PM LAND DEVELOPMENT PROJECT MANAGER 09/13/2024 10:47 PM LAND DEVELOPMENT PROJECT MANAGER Lauri Girard MD LAB - POINT OF CARE ORDERABLES [facility] [address] [place] [address], [place] [phone] * (ABNORMAL) TROPONIN-I HIGH SENSITIVE (09/13/2024 1:22 PM LAND DEVELOPMENT PROJECT MANAGER) [facility] Troponin I High Sensitive 18(H) <=14 ng/L 09/13/2024 2:08 PM LAND DEVELOPMENT PROJECT MANAGER [facility] Blood BLOOD SPECIMEN / Unknown Venipuncture / Unknown 09/13/2024 1:22 PM LAND DEVELOPMENT PROJECT MANAGER 09/13/2024 1:33 PM LAND DEVELOPMENT PROJECT MANAGER Lauri Girard MD LAB - CHEMISTRY KAITLYNN SWARTZ Performing Organization Address City/[facility]/ZIP Co de Phone Number [facility] [address] [place] [address], [place] [phone] * (ABNORMAL) TROPONIN-I HIGH SENSITIVE REFLEX 1HOUR (09/13/2024 8:49 AM LAND DEVELOPMENT PROJECT MANAGER) Troponin I High Sensitive 20(H) <=14 ng/L 09/13/2024 9:34 AM LAND DEVELOPMENT PROJECT MANAGER [facility] Delta Troponin I HS 09/13/2024 9:34 AM [facility] Comment:Delta value intentio turner not calculated. Baseline to 1 hour specimen collection interval exceeded. Blood BLOOD SPECIMEN / Unknown Venipuncture / Unknown 09/13/2024 8:49 AM LAND DEVELOPMENT PROJECT MANAGER 09/13/2024 8:55 AM LAND DEVELOPMENT PROJECT MANAGER Nacho Clay DO LAB - CHEMISTRY KAITLYNN SWARTZ Performing Organization Address [facility]/ZIP Co de Phone Number [facility] [address] [place] [address], [place] [phone] * BLOOD TYPE VERIFICATION (09/13/2024 8:49 AM LAND DEVELOPMENT PROJECT MANAGER) ABO Rh A POS 09/13/2024 9:4 9 AM LAND DEVELOPMENT PROJECT MANAGER [facility] Blood Bank BLOOD SPECIMEN / Unknown Venipuncture / Unknown 09/13/2024 8:49 AM LAND DEVELOPMENT PROJECT MANAGER 09/13/2024 9:05 AM LAND DEVELOPMENT PROJECT MANAGER Nacho Clay DO LAB - BLOOD BANK [place] CORRAL Performing Organization Address City/[facility]/ZIP Co de Phone Number [facility] [address] [place] [address], [place] [phone] * (ABNORMAL) URINALYSIS W/MICROSCOPIC NO CULTURE (09/13/2024 8:45 AM LAND DEVELOPMENT PROJECT MANAGER) Color UA Rowena(A) Straw, Yellow 09/13/2024 9:13 AM [facility] Clarity UA Cloudy(A) Clear 09/13/2024 9:13 AM [facility] Specific Emeigh UA 1.034(H) 1.005 - 1.030 09/13/2024 9:13 [...] Unknown Collection / Unknown 09/13/2024 8:45 AM LAND DEVELOPMENT PROJECT MANAGER 09/13/2024 8:55 AM LAND DEVELOPMENT PROJECT MANAGER Narrative [facility] - 09/13/2024 9:13 AM LAND DEVELOPMENT PROJECT MANAGER Nacho Clay DO LAB - URINALYSIS ORD ERABLES Performing Organization Address City/[facility]/ZIP Co de Phone Number [facility] [address] [place] [address], [facility] [phone] * (ABNORMAL) HEMOGLOBIN A1C (09/13/2024 6:00 AM LAND DEVELOPMENT PROJECT MANAGER) Hemoglobin A1c 6.8(H) <=5.6 % 09/14/2024 9:53 [...] to evaluate metabolic control in patients. Reference: [place] [employer], Standards of Care in Diabetes -2020 In patients 70 years and older consider HbA1c target range of 7.0-7.5% (Reference: Neel Galvez et al. JAMDA. 2012) The Sebia assay for the measurement of HbA1c is a National Glycohemoglobin Standardization Program (NGSP) certified method. Blood BLOOD SPECIMEN / Unknown Venipuncture / Unknown 09/13/2024 6:00 AM LAND DEVELOPMENT PROJECT MANAGER 09/13/2024 8:53 PM LAND DEVELOPMENT PROJECT MANAGER Kareem Bagley MD LAB - CHEMISTRY KAITLYNN SWARTZ Performing Organization Address City/[facility]/ZIP Co de Phone Number [facility] [address] [place] [address], [place] [phone] * (ABNORMAL) LIPID PROFILE (09/13/2024 6:00 AM LAND DEVELOPMENT PROJECT MANAGER) Cholesterol Total 170 <200 mg/dL 09/13/2024 6:49 [...] Unknown Venipuncture / Unknown 09/13/2024 6:00 AM LAND DEVELOPMENT PROJECT MANAGER 09/13/2024 6:27 AM LAND DEVELOPMENT PROJECT MANAGER Nacho Clay DO LAB - CHEMISTRY KAITLYNN SWARTZ [address] [address], [place] [phone] * TROPONIN-I HIGH SENSITIVE BASELINE + 1HR (09/12/2024 7:10 PM LAND DEVELOPMENT PROJECT MANAGER) Pathologist [facility] Troponin I High Sensitive 12 <=14 ng/L 09/12/2024 7:49 PM LAND DEVELOPMENT PROJECT MANAGER [facility] Blood BLOOD SPECIMEN / Unknown Venipuncture / Unknown 09/12/2024 7:10 PM LAND DEVELOPMENT PROJECT MANAGER 09/12/2024 7:30 PM LAND DEVELOPMENT PROJECT MANAGER Nacho Clay DO LAB - CHEMISTRY KAITLYNN SWARTZ [address] [address], [place] [phone] * (ABNORMAL) TSH REFLEX FREE T4 (09/12/2024 7:10 PM LAND DEVELOPMENT PROJECT MANAGER) TSH 24.558(H) 0.350 - 4.940 uIU/mL 09/12/2024 9:14 PM LAND DEVELOPMENT PROJECT MANAGER [facility] Blood BLOOD SPECIMEN / Unknown Venipuncture / Unknown 09/12/2024 7:10 PM LAND DEVELOPMENT PROJECT MANAGER 09/12/2024 7:30 PM LAND DEVELOPMENT PROJECT MANAGER Lauri Girard MD LAB - CHEMISTRY KAITLYNN SWARTZ [address] [address], [place] [phone] * PHOSPHORUS BLOOD (09/12/2024 7:10 PM LAND DEVELOPMENT PROJECT MANAGER) Phosphorus 3.2 2.9 - 5.1 mg/dL 09/12/2024 7:50 PM LAND DEVELOPMENT PROJECT MANAGER [facility] Blood BLOOD SPECIMEN / Unknown Venipuncture / Unknown 09/12/2024 7:10 PM LAND DEVELOPMENT PROJECT MANAGER 09/12/2024 7:30 PM LAND DEVELOPMENT PROJECT MANAGER Lauri Girard MD LAB - CHEMISTRY KAITLYNN SWARTZ Performing Organization Address City/[facility]/ZIP Co de Phone Number [address] [address], [place] [phone] * MAGNESIUM BLOOD (09/12/2024 7:10 PM LAND DEVELOPMENT PROJECT MANAGER) Magnesium 1.8 1.6 - 2.6 mg/dL 09/12/2024 7:50 PM LAND DEVELOPMENT PROJECT MANAGER [facility] Blood BLOOD SPECIMEN / Unknown Venipuncture / Unknown 09/12/2024 7:10 PM LAND DEVELOPMENT PROJECT MANAGER 09/12/2024 7:30 PM LAND DEVELOPMENT PROJECT MANAGER Lauri Girard MD LAB - CHEMISTRY KAITLYNN SWARTZ Performing Organization Address City/[facility]/ZIP Co de Phone Number [address] [address], [place] [phone] * T4 FREE (09/12/2024 7:10 PM LAND DEVELOPMENT PROJECT MANAGER) T4 Free 0.7 0.7 - 1.5 ng/dL 09/12/2024 9:47 PM LAND DEVELOPMENT PROJECT MANAGER [facility] Blood BLOOD SPECIMEN / Unknown Venipuncture / Unknown 09/12/2024 7:10 PM LAND DEVELOPMENT PROJECT MANAGER 09/12/2024 7:30 PM LAND DEVELOPMENT PROJECT MANAGER Lauri Girard MD LAB - CHEMISTRY KAITLYNN CHILANGOTAMIE Performing Organization Address City/[facility]/ZIP Co de Phone Number [facility] [address] [place] [address], [place] [phone] * EKG 12-LEAD (09/12/2024 7:04 PM LAND DEVELOPMENT PROJECT MANAGER) Ventricular Rate 97 BPM [facility] MUSE Atrial Rate 97 BPM [facility] MUSE P-R Interval 186 ms [facility] MUSE QRS Duration ms 106 ms [facility] MUSE Q-T Interval ms 388 ms [facility] MUSE QTC Calculation (Bezet) 492 ms SL MUSE Calculated P [place] 60 degrees SL MUSE Calculated R [place] -29 degrees SL MUSE Calculated T [place] 94 degrees SL MUSE Interpretation EKG NORMAL SINUS RHYTHM MINIMAL VOLTAGE CRITERIA FOR LVH, MAY BE NORMAL VARIANT ( [place] product ) ANTEROSEPTAL INFARCT , AGE UNDETERMINED ABNORMAL ECG NO PREVIOUS ECGS AVAILABLE Confirmed by JEREMIAH CANNON MD ([id number]) on 09/15/2024 2:33:28 PM [facility] MUSE 09/12/2024 7:04 PM LAND DEVELOPMENT PROJECT MANAGER 09/15/2024 2:33 PM LAND DEVELOPMENT PROJECT MANAGER Nacho Clay DO ECG ORDERABLES Performing Organization Address [facility] Co de Phone Number [facility] MUSE * XR Chest 1Vw Portable (09/12/2024 6:54 PM LAND DEVELOPMENT PROJECT MANAGER) Anatomical Region Laterality Modality Chest Digital Radiogra phy 09/12/2024 7:53 PM LAND DEVELOPMENT PROJECT MANAGER Narrative 09/12/2024 8:45 PM LAND DEVELOPMENT PROJECT MANAGER PROCEDURE: XR CHEST 1VW PORTABLE, DATE/TIME OF [...] dictated by Maikel Marr MD (vice president quality assurance). Klarissa Verma MD have personally reviewed and [...] dictated by Maikel Marr MD (vice president quality assurance). Klarissa Verma MD have personally reviewed and interpreted this examination/study. > Interpreting Provider: Klarissa Munoz MD on 09/12/2024 8:45 PM Nacho Clay DO DIAGNOSTIC IMAGING O RDERABLES * CT ANGIO BRAIN NECK STROKE (09/12/2024 6:42 PM LAND DEVELOPMENT PROJECT MANAGER) Anatomical Region Laterality Modality Head Computed Tomogra phy 09/12/2024 6:57 PM LAND DEVELOPMENT PROJECT MANAGER Impressions 09/12/2024 7:19 PM LAND DEVELOPMENT PROJECT MANAGER IMPRESSION: 1. No acute intracranial hemorrhage. 2. No large arterial occlusions or significant stenoses identified in the head or neck. Viz.AI was used for large vessel occlusion detection. > Interpreting Provider: Milagros Flores MD on 09/12/2024 7:19 PM Narrative 09/12/2024 7:19 PM LAND DEVELOPMENT PROJECT MANAGER PROCEDURE: CT ANGIO BRAIN NECK STROKE, DATE/TIME [...] Nacho Clay DO CT ORDERABLES * PT-INR [facility] (09/12/2024 6:39 PM LAND DEVELOPMENT PROJECT MANAGER) Pathologist [facility] PT 12.9 12.1 - 14.8 Seconds 09/12/2024 7:05 PM LAND DEVELOPMENT PROJECT MANAGER [facility] INR 1.0 See Comment 09/12/2024 7:05 PM [facility] Comment:The suggested therap eutic range for standard coumadin (warfarin) therapy is an INR of 2.0-3.0. For high-risk patients (Mechanical Mitral Valve Prosthesis, etc.), the suggested prophylactic therapeutic range is an INR of 2.5-3.5. Blood BLOOD SPECIMEN / Unknown Venipuncture / Unknown 09/12/2024 6:39 PM LAND DEVELOPMENT PROJECT MANAGER 09/12/2024 6:45 PM LAND DEVELOPMENT PROJECT MANAGER Nacho Clay DO LAB - COAGULATION OR DERABLES [facility] [address] [place] [address], [employer] [phone] * TYPE + SCREEN PANEL (09/12/2024 6:39 PM LAND DEVELOPMENT PROJECT MANAGER) [facility] Antibody Screen NEG 7:42 PM LAND DEVELOPMENT PROJECT MANAGER [facility] ABO Rh A POS 09/12/2024 7:42 PM LAND DEVELOPMENT PROJECT MANAGER [facility] Blood Bank BLOOD SPECIMEN / Unknown Venipuncture / Unknown 09/12/2024 6:39 PM LAND DEVELOPMENT PROJECT MANAGER 09/12/2024 6:50 PM LAND DEVELOPMENT PROJECT MANAGER Nacho Clay DO LAB - BLOOD BANK ORD ERABLES [facility] [address] [place] [address], [place] [phone] * CBC W AUTO DIFFERENTIAL (09/12/2024 6:39 PM LAND DEVELOPMENT PROJECT MANAGER) [facility] WBC 6.5 4.0 - 10.7 x10E9/L 09/12/2024 [...] Unknown Venipuncture / Unknown 09/12/2024 6:39 PM LAND DEVELOPMENT PROJECT MANAGER 09/12/2024 6:45 PM LAND DEVELOPMENT PROJECT MANAGER Nacho Clay DO LAB - HEMATOLOGY ORD ERABLES [facility] [address] [place] [address], [facility] [phone] * (ABNORMAL) COMPREHENSIVE METABOLIC PANEL (09/12/2024 6:39 PM LAND DEVELOPMENT PROJECT MANAGER) BUN 20 7 - 26 mg/dL 09/12/2024 [...] Unknown Venipuncture / Unknown 09/12/2024 6:39 PM LAND DEVELOPMENT PROJECT MANAGER 09/12/2024 6:45 PM LAND DEVELOPMENT PROJECT MANAGER Nacho Clay DO LAB - CHEMISTRY KAITLYNN SWARTZ [facility] Organization Address City/State/[facility] Co de Phone Number [facility] [address] [place] [address] [phone] * CREATININE - POCT INTERFACED (09/12/2024 6:36 PM LAND DEVELOPMENT PROJECT MANAGER) Creatinine POCT 0.54 0.30 - 1.30 mg/dL 09/12/2024 6:37 PM [facility] eGFR >90 >=90 mL/min/1.7 3 m2 09/12/2024 6:37 PM [facility] Blood BLOOD SPECIMEN / Unknown 09/12/2024 6:36 PM LAND DEVELOPMENT PROJECT MANAGER 09/12/2024 6:37 PM LAND DEVELOPMENT PROJECT MANAGER Nacho Clay DO LAB - POINT OF CARE ORDERABLES Performing Organization Address City/[facility]/ZIP Co de Phone Number [address] [address], [facility] [phone] * INR WHOLE BLOOD - POINT OF CARE (IP) STROKE (09/12/2024 6:33 PM LAND DEVELOPMENT PROJECT MANAGER) INR 0.9 0.9 - 1.2 09/12/2024 6:36 PM LAND DEVELOPMENT PROJECT MANAGER [facility] Device [id number] 09/12/2024 6:36 PM LAND DEVELOPMENT PROJECT MANAGER [facility] Fleshing Machine Operator ID [id number] 09/12/2024 6:36 PM LAND DEVELOPMENT PROJECT MANAGER [facility] Blood BLOOD SPECIMEN / Unknown 09/12/2024 6:33 PM LAND DEVELOPMENT PROJECT MANAGER 09/12/2024 6:36 PM LAND DEVELOPMENT PROJECT MANAGER Nacho Clay DO LAB - POINT OF CARE ORDERABLES Performing Organization Address [facility]/ZIP Co de Phone Number [address] [address], [facility] [phone] * CT BRAIN - Stroke (09/12/2024 6:28 PM LAND DEVELOPMENT PROJECT MANAGER) Anatomical Region Laterality Modality Head Computed Tomogra phy 09/12/2024 6:30 PM LAND DEVELOPMENT PROJECT MANAGER Impressions 09/12/2024 6:50 PM LAND DEVELOPMENT PROJECT MANAGER IMPRESSION: 1.No acute intracranial hemorrhage. 2.Please note [...] 09/12/2024 6:50 PM Narrative 09/12/2024 6:50 PM LAND DEVELOPMENT PROJECT MANAGER PROCEDURE: CT BRAIN STROKE, DATE/TIME OF EXAM: [...] 6:45 PM 09/14/2024 1:52 PM Care Teams Tanning Salon Attendant Relationship Specialty Start Date End Date Brianne Ko APRN-CNP [phone] [phone] PCP - General Nurse Practitioner Family 09/12/24
--- OUTSIDE RECORDS SUMMARY | 2024-10-26 03:28 | XMS_ITS | Patient Health Summary ---
Author Organization [facility] [employer] Address [address] [place] [address] Care Team Providers Care Commercial Loan Collection Officer Name Role Phone Brianne Ko SANTOSH-BARRERA Primary Care Provider [phone] Note from [facility],non-owned Affiliates and Associated Physician Practices is amultiple site organization consisting of ambulatory clinics and hospital sitesin [place], [place], [place] and [place]. This disclosure is being madepursuant to the Care Everywhere program and may not contain all information available regarding this patient. Last updated 18.[facility] Allergies No known active allergies Medications * [...] Comments Blood Pressure 172/72 09/14/2024 11:16 AM [employer] Pulse 88 09/14/2024 11:17 AM [employer] Temperature 36.7 C (98 F) 09/13/2024 10:47 PM [employer] Respiratory Rate 18 09/14/2024 11:17 AM [employer] Oxygen Saturation 95% 09/14/2024 11:17 AM [employer] Inhaled Oxygen Concentration - - Weight 88.9 kg (196 lb) 09/13/2024 9:36 AM [employer] Height 162.6 cm (5' 4 ) 09/13/2024 8:32 PM [employer] Body Mass Index 37.03 09/13/2024 9:36 AM [employer] Procedures * CARDIAC EKG ORDER(Performed 09/14/2024) * [...] * CARDIAC EKG ORDER (09/14/2024 1:29 PM [employer]) Narrative 09/14/2024 1:29 PM [employer] Ordered by an unspecified provider. Scanned Document CARDIAC SERVICES ORD ERABLES * CT Head Wo Contrast (09/14/2024 6:00 AM [employer]) Anatomical Region Laterality Modality Head Computed Tomogra phy 09/14/2024 6:00 AM [employer] Impressions 09/14/2024 10:22 AM [employer] IMPRESSION: 1.No acute intracranial hemorrhage, midline shift, or significant mass effect. > Dictated by Jaswant Anaya MD (Sales And Customer Relations Rep) I, Luan Rouse MD have personally reviewed and interpreted this examination/study. > Interpreting Provider: Luan Rouse MD on 09/14/2024 10:22 AM Narrative 09/14/2024 10:22 AM [employer] PROCEDURE: CT HEAD WO CONTRAST, DATE/TIME OF EXAM: 09/14/2024 6:00 AM, LOCATION [facility] INDICATION: R40.4: Transient alteration of awareness [...] OF EXAM: 09/14/2024 6:00 AM, LOCATION [facility] INDICATION: R40.4: Transient alteration of awareness [...] effect. > Dictated by Jaswant Anaya MD (Sales And Customer Relations Rep) I, Luan Rouse MD have personally reviewed and interpreted this examination/study. > Interpreting Provider: Luan Rouse MD on 09/14/2024 10:22 AM Lauri Girard MD CT ORDERABLES * (ABNORMAL) CBC W/O DIFFERENTIAL (09/14/2024 2:15 AM [employer]) Only the most recent of2 resultswithin the time period is included. WBC 11.4(H) 4.0 - 10.7 x10E9/L 09/14/2024 3:[address] [facility] RBC Count 4.80 3.90 - 5.20 x10E12/L 09/14/2024 3:14 AM [facility] Hemoglobin 14.4 11.9 - 15.8 g/dL 09/14/2024 3:14 AM [facility] Hematocrit 43.4 34.8 - 46.1 % 09/14/2024 3:14 AM [facility] MCV 90.4 80.0 - 98.0 fL 09/14/2024 3:14 AM [facility] MCH 30.0 26.7 - 33.6 pg 09/14/2024 3:14 AM [facility] MCHC 33.2 31.7 - 36.3 g/dL 09/14/2024 3:14 AM [facility] RDW-CV 13.9 11.3 - 14.8 % 09/14/2024 3:14 AM [facility] Platelet Count 09/14/2024 3:14 AM [facility] Comment:Platelets clumped on slide but appears decreased. Recommend repeat with a sodium citrate blue top tube. MPV 09/14/2024 3:14 AM [employer] Comment:Unable to report Blood BLOOD SPECIMEN / Unknown Venipuncture / Unknown 09/14/2024 2:15 AM [employer] 09/14/2024 2:40 AM [employer] Nacho Clay DO LAB - HEMATOLOGY ORD ERABLES [facility] [address] [place] [address], [facility] [phone] * (ABNORMAL) BASIC METABOLIC PANEL (CALCIUM TOTAL) (09/14/2024 2:15 AM [employer]) Only the most recent of2 resultswithin the time period is included. BUN 17 7 - 26 mg/dL 09/14/2024 3:07 AM [facility] Creatinine 0.90 0.56 - 0.96 mg/dL 09/14/2024 3:07 AM [facility] Sodium 142 136 - 145 mmol/L 09/14/2024 3:07 AM [facility] Potassium 3.4(L) 3.5 - 4.5 mmol/L 09/14/2024 3:07 AM [facility] Chloride 104 98 - 107 mmol/L 09/14/2024 3:07 AM [facility] CO2 23 22 - 29 mmol/L 09/14/2024 3:07 AM [facility] Glucose 205(H) 70 - 99 mg/dL 09/14/2024 3:07 AM [facility] Calcium 9.7 8.4 - 10.2 mg/dL 09/14/2024 3:07 AM [facility] Anion Gap 15 6 - 16 09/14/2024 3:07 AM [facility] BUN/Creatinine Ratio 19 7 - 23 09/14/2024 3:07 AM [facility] Osmolality Calculated 301(H) 275 - 295 mOsm/kg 09/14/2024 3:07 AM [facility] eGFR by CKD-EPI 63(L) >=90 mL/min/1.7 3 m2 09/14/2024 3:07 AM [facility] Blood BLOOD SPECIMEN / Unknown Venipuncture / Unknown 09/14/2024 2:15 AM [employer] 09/14/2024 2:40 AM [employer] Nacho Clay DO LAB - CHEMISTRY ORDE SHERIDAN Performing Organization Address [facility]/ZIP Co de Phone Number [address] [address], [place] [phone] * (ABNORMAL) GLUCOSE - POINT OF CARE (09/13/2024 10:46 PM [employer]) Only the most recent of3 resultswithin the time period is included. Glucose WB/POC 133(H) 70 - 99 mg/dL 09/13/2024 10:47 PM [employer] [facility] Specimen Type Cap Fingerstick 2023 10:47 PM [employer] [facility] Blood BLOOD SPECIMEN / Unknown 09/13/2024 10:46 PM [employer] 09/13/2024 10:47 PM [employer] Lauri Girard MD LAB - POINT OF CARE ORDERABLES Performing Organization Address [facility]/ZIP Co de Phone Number [address] [address], [place] [phone] * (ABNORMAL) TROPONIN-I HIGH SENSITIVE (09/13/2024 1:22 PM [employer]) [facility] Troponin I High Sensitive 18(H) <=14 ng/L 09/13/2024 2:08 PM [employer] [facility] Blood BLOOD SPECIMEN / Unknown Venipuncture / Unknown 09/13/2024 1:22 PM [employer] 09/13/2024 1:33 PM [employer] Lauri Girard MD LAB - CHEMISTRY ORDE SHREIDAN Performing Organization Address [facility]/ZIP Co de Phone Number [address] [address], [place] [phone] * (ABNORMAL) TROPONIN-I HIGH SENSITIVE REFLEX 1HOUR (09/13/2024 8:49 AM [employer]) Troponin I High Sensitive 20(H) <=14 ng/L 09/13/2024 9:34 AM [facility] Delta Troponin I HS 09/13/2024 9:34 AM [facility] Comment:Delta value intentio turner not calculated. Baseline to 1 hour specimen collection interval exceeded. Blood BLOOD SPECIMEN / Unknown Venipuncture / Unknown 09/13/2024 8:49 AM [employer] 09/13/2024 8:55 AM [employer] Nacho Clay LAB - CHEMISTRY ORDE RABLES Performing Organization Address City/[facility]/ZIP Co de Phone Number [facility] [address] [place] [address], [facility] [phone] * BLOOD TYPE VERIFICATION (09/13/2024 8:49 AM [employer]) ABO Rh A POS 09/13/2024 9:4 9 AM [facility] Blood Bank BLOOD SPECIMEN / Unknown Venipuncture / Unknown 09/13/2024 8:49 AM [employer] 09/13/2024 9:05 AM [employer] Nacho Clay LAB - BLOOD BANK ORD ERABLES Performing Organization Address [facility]/ZIP Co de Phone Number [facility] BLOOD BANK LAB [address] [place] [address], [facility] [phone] * (ABNORMAL) URINALYSIS W/MICROSCOPIC NO CULTURE (09/13/2024 8:45 AM [employer]) Color UA Rowena(A) Straw, Yellow 09/13/2024 9:13 AM [facility] Clarity UA Cloudy(A) Clear 09/13/2024 9:13 AM [facility] Specific [place] UA 1.034(H) 1.005 - 1.030 09/13/2024 9:13 AM [facility] pH UA 7.0 5.0 - 8.0 pH 09/13/2024 9:13 AM [facility] Protein UA 2+(A) Negative 09/13/2024 9:13 AM [facility] Glucose UA Negative Negative 09/13/2024 9:13 AM [facility] Ketone UA Negative Negative 09/13/2024 9:13 AM [facility] Bilirubin UA Negative Negative 09/13/2024 9:13 AM [facility] Blood UA 1+(A) Negative 09/13/2024 9:13 AM [facility] Nitrite UA Negative Negative 09/13/2024 9:13 AM [facility] Leukocyte Esterase Trace(A) Negative 09/13/2024 9:13 AM [facility] Urobilinogen UA 2.0(A) Negative mg/dL 09/13/2024 9:13 AM [facility] RBC UA 21-50(A) None Seen, 0-2, 3-5 /HPF 09/13/2024 9:13 AM [facility] WBC UA 6-10(A) None Seen, 0-5 /HPF 09/13/2024 9:13 AM [facility] Bacteria UA 3+(A) None /HPF 09/13/2024 9:13 AM [facility] Squamous Epithelial Cells UA 3-5 None Seen, 0-2, 3-5 /HPF 09/13/2024 9:13 AM [facility] Mucus UA 1+ /LPF 09/13/2024 9:13 AM [facility] Amorphous Crystals Few(A) None /HPF 09/13/2024 9:13 AM [facility] Urine URINE SPECIMEN OBTAINED BY CLEAN CATCH PROCEDURE / Unknown Collection / Unknown 09/13/2024 8:45 AM [employer] 09/13/2024 8:55 AM [facility] - 09/13/2024 9:13 AM [facility] Nacho Clay DO LAB - URINALYSIS ORD ERABLES [facility] [address] [place] [address], [facility] [phone] * (ABNORMAL) HEMOGLOBIN A1C (09/13/2024 6:00 AM [facility]) Hemoglobin A1c 6.8(H) <=5.6 % 09/14/2024 9:53 AM [facility] Estimated Average Glucose 148 mg/dL 09/14/2024 9:53 AM [facility] Comment: HbA1c Interpretation: Normal : < 5.7% Pre-diabetes: 5.7-6.4% Diabetes: Equal to or greater than 6.5% Test results diagnostic of diabetes should be repeated for confirmation. Treatment target values recommended by ADA and other clinical organizations should be used to evaluate metabolic control in patients. Reference: [place] [employer], Standards of Care in Diabetes -2020 In patients 70 years and older consider HbA1c target range of 7.0-7.5% (Reference: Neel Galvez et al. JAMDA. 2012) The Sebia assay for the measurement of HbA1c is a National Glycohemoglobin Standardization Program (NGSP) certified method. Blood BLOOD SPECIMEN / Unknown Venipuncture / Unknown 09/13/2024 6:00 AM [employer] 09/13/2024 8:53 PM [employer] Kareem Bagley MD LAB - CHEMISTRY KAITLYNN SWARTZ [facility] Organization Address City/State/ZIP Co de Phone Number [address] [address], [facility] [phone] * (ABNORMAL) LIPID PROFILE (09/13/2024 6:00 AM [employer]) Cholesterol Total 170 <200 mg/dL 09/13/2024 6:49 AM [facility] HDL 55 >40 mg/dL 09/13/2024 6:49 AM [facility] Comment: ATP III Classification of HDL Cholesterol: <40 mg/dL: Considered a major risk factor. >60 mg/dL: Considered a negative risk factor. LDL Calculated 82 <100 mg/dL 09/13/2024 6:49 AM [facility] Comment: ATP III Classification of LDL Cholesterol: <100 mg/dL: Optimal 100 - 129 mg/dL: Near Optimal/Above Optimal 130 - 159 mg/dL: Borderline High 160 - 189 mg/dL: High >190 mg/dL: Very High Triglycerides 163(H) <150 mg/dL 09/13/2024 6:49 AM [facility] Comment: ATP III Classification of Triglycerides: <150 mg/dL: Normal 150 - 199 mg/dL: Borderline High 200 - 400 mg/dL: High >500 mg/dL: Very High Blood BLOOD SPECIMEN / Unknown Venipuncture / Unknown 09/13/2024 6:00 AM [employer] 09/13/2024 6:27 AM [employer] Nacho Claudio Clay DO LAB - CHEMISTRY MILKAAshly SHERIDAN Performing Organization Address City/[facility]/ZIP Co de Phone Number [address] [address], [facility] [phone] * TROPONIN-I HIGH SENSITIVE BASELINE + 1HR (09/12/2024 7:10 PM [employer]) Troponin I High Sensitive 12 <=14 ng/L 09/12/2024 7:49 PM [employer] [facility] Blood BLOOD SPECIMEN / Unknown Venipuncture / Unknown 09/12/2024 7:10 PM [employer] 09/12/2024 7:30 PM [employer] Nacho Clay DO LAB - CHEMISTRY KAITLYNN SWARTZ Performing Organization Address [facility]/ZIP Co de Phone Number [address] [address], [facility] [phone] * (ABNORMAL) TSH REFLEX FREE T4 (09/12/2024 7:10 PM [employer]) TSH 24.558(H) 0.350 - 4.940 uIU/mL 09/12/2024 9:14 PM [employer] [facility] Blood BLOOD SPECIMEN / Unknown Venipuncture / Unknown 09/12/2024 7:10 PM [employer] 09/12/2024 7:30 PM [employer] Lauri Girard MD LAB - CHEMISTRY KAITLYNN SWARTZ [address] [address], [place] [phone] * PHOSPHORUS BLOOD (09/12/2024 7:10 PM [employer]) Phosphorus 3.2 2.9 - 5.1 mg/dL 09/12/2024 7:50 PM [employer] [facility] Blood BLOOD SPECIMEN / Unknown Venipuncture / Unknown 09/12/2024 7:10 PM [employer] 09/12/2024 7:30 PM [employer] Lauri Girard MD LAB - CHEMISTRY KAITLYNN SWARTZ Performing Organization Address City/[facility]/ZIP Co de Phone Number [address] [address], [place] [phone] * MAGNESIUM BLOOD (09/12/2024 7:10 PM [employer]) Pathologist [facility] Magnesium 1.8 1.6 - 2.6 mg/dL 09/12/2024 7:50 PM [employer] [facility] Blood BLOOD SPECIMEN / Unknown Venipuncture / Unknown 09/12/2024 7:10 PM [employer] 09/12/2024 7:30 PM [employer] Lauri Girard MD LAB - CHEMISTRY KAITLYNN SWARTZ Performing Organization Address [facility] Co de Phone Number [address] [address], [place] [phone] * T4 FREE (09/12/2024 7:10 PM [employer]) Pathologist [facility] T4 Free 0.7 0.7 - 1.5 ng/dL 09/12/2024 9:47 PM [employer] [facility] Blood BLOOD SPECIMEN / Unknown Venipuncture / Unknown 09/12/2024 7:10 PM [employer] 09/12/2024 7:30 PM [employer] Lauri Girard MD LAB - CHEMISTRY KAITLYNN SWARTZ Performing Organization Address [facility]/ZIP Co de Phone Number [address] [address], [place] [phone] * EKG 12-LEAD (09/12/2024 7:04 PM [employer]) Ventricular Rate 97 BPM [facility] MUSE Atrial Rate 97 BPM [facility] MUSE P-R Interval 186 ms [facility] MUSE QRS Duration ms 106 ms [facility] MUSE Q-T Interval ms 388 ms [facility] MUSE QTC Calculation (Bezet) 492 ms [facility] MUSE Calculated P [place] 60 degrees [facility] MUSE Calculated R [place] -29 degrees [facility] Calculated T [place] 94 degrees [facility] Interpretation EKG NORMAL SINUS RHYTHM MINIMAL VOLTAGE CRITERIA FOR LVH, MAY BE NORMAL VARIANT ( Baldemar product ) ANTEROSEPTAL INFARCT , AGE UNDETERMINED ABNORMAL ECG NO PREVIOUS ECGS AVAILABLE Confirmed by JEREMIAH CANNON MD ([id number]) on 09/15/2024 2:33:28 PM [facility] 09/12/2024 7:04 PM [employer] 09/15/2024 2:33 PM [employer] Nacho Clay DO ECG ORDERABLES [facility] MUSE * XR Chest 1Vw Portable (09/12/2024 6:54 PM [employer]) Anatomical Region Laterality Modality Chest Digital Radiogra phy 09/12/2024 7:53 PM [employer] Narrative 09/12/2024 8:45 PM [employer] PROCEDURE: XR CHEST 1VW PORTABLE, DATE/TIME OF EXAM: 09/12/2024 7:05 PM, LOCATION [facility] INDICATION: R47.01: Aphasia R40.4: Transient alteration [...] visualized. Report dictated by Maikel Marr MD (assistant professor of radiology). IKlarissa MD have personally reviewed and interpreted this examination/study. > Interpreting Provider: Klarissa Munoz MD on 09/12/2024 8:45 PM Procedure Note Klarissa Munoz MD - 09/12/2024 PROCEDURE: XR CHEST 1VW PORTABLE, DATE/TIME OF EXAM: 09/12/2024 7:05PM, LOCATION [facility] INDICATION: R47.01: Aphasia R40.4: Transient alteration [...] visualized. Report dictated by Maikel Marr MD (assistant professor of radiology). I, Klarissa Muonz MD have personally reviewed and interpreted this examination/study. > Interpreting Provider: Klarissa Munoz MD on 09/12/2024 8:45 PM Nacho R Samanthaesi DO DIAGNOSTIC IMAGING O RDERABLES * CT ANGIO BRAIN NECK STROKE (09/12/2024 6:42 PM [employer]) Anatomical Region Laterality Modality Head Computed Tomogra phy 09/12/2024 6:57 PM [employer] Impressions 09/12/2024 7:19 PM [employer] IMPRESSION: 1. No acute intracranial hemorrhage. 2. No large arterial occlusions or significant stenoses identified in the head or neck. Viz.AI was used for large vessel occlusion detection. > Interpreting Provider: Milagros Flores MD on 09/12/2024 7:19 PM Narrative 09/12/2024 7:19 PM [employer] PROCEDURE: CT ANGIO BRAIN NECK STROKE, DATE/TIME OF EXAM: 09/12/2024 6:43 PM, LOCATION [facility] INDICATION: Code Stroke ADDITIONAL CLINICAL INFORMATION: [...] DATE/TIME OF EXAM: :43 PM, LOCATION [facility] INDICATION: Code Stroke ADDITIONAL CLINICAL INFORMATION: [...] Nacho Clay DO CT ORDERABLES * PT-INR [facility] (09/12/2024 6:39 PM [employer]) PT 12.9 12.1 - 14.8 Seconds 09/12/2024 7:05 PM [employer] [facility] INR 1.0 See Comment 09/12/2024 7:05 PM [employer] [facility] Comment:The suggested therap eutic range for standard coumadin (warfarin) therapy is an INR of 2.0-3.0. For high-risk patients (Mechanical Mitral Valve Prosthesis, etc.), the suggested prophylactic therapeutic range is an INR of 2.5-3.5. Blood BLOOD SPECIMEN / Unknown Venipuncture / Unknown 09/12/2024 6:39 PM [employer] 09/12/2024 6:45 PM [employer] Nacho Clay DO LAB - COAGULATION OR DERABLES Performing Organization Address City/[facility]/ZIP Co de Phone Number [facility] LABORATORY [facility] [address] [place] [address], [facility] [phone] * TYPE + SCREEN PANEL (09/12/2024 6:39 PM [employer]) Pathologist [facility] Antibody Screen NEG 7:42 PM [employer] [facility] BLOOD BANK LAB ABO Rh A POS 09/12/2024 7:42 PM [employer] [facility] BLOOD BANK LAB Blood Bank BLOOD SPECIMEN / Unknown Venipuncture / Unknown 09/12/2024 6:39 PM [employer] 09/12/2024 6:50 PM [employer] Nacho Clay DO LAB - BLOOD BANK ORD ERABLES Performing Organization Address City/[facility]/ZIP Co de Phone Number [facility] BLOOD BANK LAB [address] [place] [address], [facility] [phone] * CBC W AUTO DIFFERENTIAL (09/12/2024 6:39 PM [employer]) Pathologist [facility] WBC 6.5 4.0 - 10.7 x10E9/L 09/12/2024 7:23 PM [facility] RBC Count 4.29 3.90 - 5.20 x10E12/L 09/12/2024 7:23 PM [facility] Hemoglobin 12.9 11.9 - 15.8 g/dL 09/12/2024 7:23 PM [facility] Hematocrit 38.5 34.8 - 46.1 % 09/12/2024 7:23 PM [facility] MCV 89.7 80.0 - 98.0 fL 09/12/2024 7:23 PM [facility] MCH 30.1 26.7 - 33.6 pg 09/12/2024 7:23 PM [facility] MCHC 33.5 31.7 - 36.3 g/dL 09/12/2024 7:23 PM [facility] RDW-CV 13.8 11.3 - 14.8 % 09/12/2024 7:23 PM [facility] Platelet Count 09/12/2024 7:23 PM [facility] Comment:Platelets clumped on slide but appears adequate. Recommend repeat with a sodium citrate blue top tube. MPV 09/12/2024 7:23 PM [facility] Comment:Unable to report Neutrophil % 68.5 41.0 - 74.0 % 09/12/2024 7:23 PM [facility] Lymphocyte % 21.5 17.0 - 47.0 % 09/12/2024 7:23 PM [facility] Monocyte % 7.3 3.0 - 11.0 % 09/12/2024 7:23 PM [facility] Eosinophil % 2.2 0.0 - 7.0 % 09/12/2024 7:23 PM [facility] Basophil % 0.3 0.0 - 1.6 % 09/12/2024 7:23 PM [facility] Immature Granulocytes % 0.2 0.0 - 1.0 % 09/12/2024 7:23 PM [facility] Neutrophil Absolute 4.45 1.60 - 7.50 x10E9/L 09/12/2024 7:23 PM [facility] Lymphocyte Absolute 1.39 1.00 - 4.40 x10E9/L 09/12/2024 7:23 PM [facility] Monocyte Absolute 0.47 0.15 - 1.00 x10E9/L 09/12/2024 7:23 PM [facility] Eosinophil Absolute 0.14 0.00 - 0.60 x10E9/L 09/12/2024 7:23 PM [facility] Basophil Absolute 0.02 0.00 - 0.13 x10E9/L 09/12/2024 7:23 PM [facility] Blood BLOOD SPECIMEN / Unknown Venipuncture / Unknown 09/12/2024 6:39 PM [employer] 09/12/2024 6:45 PM [employer] Nacho Clay DO LAB - HEMATOLOGY ORD ERABLES [facility] [address] [place] [address], [facility] [phone] * (ABNORMAL) COMPREHENSIVE METABOLIC PANEL (09/12/2024 6:39 PM [facility]) BUN 20 7 - 26 mg/dL 09/12/2024 7:11 PM [facility] Creatinine 0.85 0.56 - 0.96 mg/dL 09/12/2024 7:11 PM [facility] Sodium 142 136 - 145 mmol/L 09/12/2024 7:11 PM [facility] Potassium 4.3 3.5 - 4.5 mmol/L 09/12/2024 7:11 PM [facility] Chloride 107 98 - 107 mmol/L 09/12/2024 7:11 PM [facility] CO2 26 22 - 29 mmol/L 09/12/2024 7:11 PM [facility] Glucose 152(H) 70 - 99 mg/dL 09/12/2024 7:11 PM [facility] Calcium 9.2 8.4 - 10.2 mg/dL 09/12/2024 7:11 PM [facility] Protein Total 7.2 6.0 - 8.3 g/dL 09/12/2024 7:11 PM [facility] Albumin 4.1 3.4 - 5.0 g/dL 09/12/2024 7:11 PM [facility] Bilirubin Total 0.6 0.2 - 1.2 mg/dL 09/12/2024 7:11 PM [facility] Alkaline Phosphatase 76 40 - 150 U/L 09/12/2024 7:11 PM [facility] ALT 14 5 - 55 U/L 09/12/2024 7:11 PM [facility] AST 18 5 - 34 U/L 09/12/2024 7:11 PM [facility] Anion Gap 9 6 - 16 09/12/2024 7:11 PM [facility] BUN/Creatinine Ratio 24(H) 7 - 23 09/12/2024 7:11 PM [facility] Osmolality Calculated 300(H) 275 - 295 mOsm/kg 09/12/2024 7:11 PM [facility] Albumin/Globulin Ratio 1.3 1.1 - 2.3 09/12/2024 7:11 PM [facility] eGFR by CKD-EPI 68(L) >=90 mL/min/1.7 3 m2 09/12/2024 7:11 PM [facility] Blood BLOOD SPECIMEN / Unknown Venipuncture / Unknown 09/12/2024 6:39 PM [facility] 09/12/2024 6:45 PM [facility] Nacho Clay DO LAB - CHEMISTRY ORDE RABLES [address] [address], [facility] [phone] * CREATININE - POCT INTERFACED (09/12/2024 6:36 PM [facility]) Creatinine POCT 0.54 0.30 - 1.30 mg/dL 09/12/2024 6:37 PM [facility] eGFR >90 >=90 mL/min/1.7 3 m2 09/12/2024 6:37 PM [facility] Blood BLOOD SPECIMEN / Unknown 09/12/2024 6:36 PM [employer] 09/12/2024 6:37 PM [employer] Nacho Clay DO LAB - POINT OF CARE ORDERABLES [address] [address], [place] [phone] * INR WHOLE BLOOD - POINT OF CARE (IP) STROKE (09/12/2024 6:33 PM [employer]) INR 0.9 0.9 - 1.2 09/12/2024 6:36 PM [facility] Device [id number] 09/12/2024 6:36 PM [facility] Miller [place] ID [id number] 09/12/2024 6:36 PM [facility] Blood BLOOD SPECIMEN / Unknown 09/12/2024 6:33 PM [employer] 09/12/2024 6:36 PM [employer] Nacho Clay DO LAB - POINT OF CARE ORDERABLES [facility] [address] [place] [address], [facility] [phone] * CT BRAIN - Stroke (09/12/2024 6:28 PM [employer]) Anatomical Region Laterality Modality Head Computed Tomogra phy 09/12/2024 6:30 PM [employer] Impressions 09/12/2024 6:50 PM [employer] IMPRESSION: 1.No acute intracranial hemorrhage. 2.Please note [...] 09/12/2024 6:50 PM Narrative 09/12/2024 6:50 PM [employer] PROCEDURE: CT BRAIN STROKE, DATE/TIME OF EXAM: 09/12/2024 6:29 PM, LOCATION [facility] INDICATION: Code Stroke EXAMINATION: Computed tomography [...] OF EXAM: 09/12/2024 6:29 PM, LOCATION [facility] INDICATION: Code Stroke EXAMINATION: Computed tomography [...] Nacho Clay DO CT ORDERABLES Care Teams Commercial Loan Collection Officer Relationship Specialty Start Date End Date Brianne Ko APRN-BARRERA [address] [phone] PCP - General Nurse Practitioner Family 09/12/24
--- OUTSIDE RECORDS SUMMARY | 2024-10-26 03:28 | XMS_ITS ---
Author Organization [facility] Address [address] [place] [address] Care Team Providers Care Treating Engineer Helper Name Role Phone Kevin Colon Unavailable [phone] MEDICATIONS Medication SIG (Take, Route, Frequency, Duration) Notes Start Date End Date Status Calcitriol 0.25 MCG 1 capsule Orally Onc e a day for 90 day(s) 01/30/2024 10/25/2024 Active Losartan Potassium 25 MG 1 tablet Orally Once a day for 90 day(s) 01/30/2024 Active Ergocalciferol 1.25 MG (87801 UT) 1 capsule Orally Once a week for 90 day(s) 01/30/2024 10/25/2024 Active Encounters Encounter Location Date Provider Diagnosis [place] [facility] 2043 [facility] [address] [place] [address] 04/23/2024 Kevin Colon Chronic kidney disea se, [...] Provider Name:Kevin Colon 2024 01:15:00 PM, 2043 [facility], [facility], [place], [address], Progress Notes * Cady BOXOB:1940 ([age] yo F)Acc No.[id number]:04/23/2024 Progress Notes Patient: Wendy BOX Provider: MD SCOT, Stephanie.Lenny.C.P, F.A.S.N. :1940 Age:83 Y Sex:Female Date:04/23/2024 Address:[address] [place] [address] Subjective: * Chief Complaints: * * Medical History: * Medications: Taking Ergocalciferol 1.25 MG (91252 UT) Capsule 1 capsule Orally Once a [...] Treatment: * Billing Information: * Visit Code: 13827 Office Visit, Est Pt., Level 4. * Procedure Codes: * K DRIVER Sign off status: Pending * Provider: MD SCOT, Stephanie.Lenny.C.P, F.A.S.N. Date: 04/23/2024
--- OUTSIDE RECORDS SUMMARY | 2024-10-26 03:29 | XMS_ITS | Encounter Summary ---
Author Organization [facility] Address [address] [place] [address] Care Team Providers Care Staffing Recruiter Name Role Phone Brianne Ko NP Primary Care Provider [phone] Encounter Details Date Type Department Care Team (Late st Contact Info) Description 04/13/2020 Hospital Follow-up Call [facility] Telemetry Unit A [facility] [address] [address] [address] Bethany Morocho RN Social History Tobacco Use [...] on filedocumented in this encounter Care Teams Staffing Recruiter Relationship Specialty Start Date End Date Brianne Ko NP [address] [phone] PCP - General NURSE PRACTITIONER 04/10/20 documented as of this encounter
--- OUTSIDE RECORDS SUMMARY | 2024-10-26 03:29 | XMS_ITS ---
Author Organization [facility] Address [address] [place] [address] Care Team Providers Care Lens Edge Grinder Machine Name Role Phone Isaiah Kevin Unavailable [phone] MEDICATIONS Medication SIG (Take, Route, Frequency, Duration) Notes Start Date End Date Status Ergocalciferol 1.25 MG (99125 UT) 1 capsule Orally Once a week [...] confirmed Chronic kidney disease stage 3 (disorder) (306826527) Encounters Encounter Location Date Provider Diagnosis [place] [facility] 2043 [facility] [address] [place] [address] 07/02/2024 Kevin Colon Chronic kidney disea se, [...] Name:Kevin Colon , 2024 01:15:00 PM, 2043 [facility], [address], [place], [place], [facility], Progress Notes * Rustam BOXeDOB:1940 ([age] yo F)Acc No.[id number]:07/02/2024 Progress Notes Patient: Wendy BOX Provider: MD SCOT, F.A.C.P, F.A.S.N. :1940 Age:83 Y Sex:Female Date:07/02/2024 Address:[address] [place] [address] Subjective: * Chief Complaints: * * Medical History: * Medications: Taking Ergocalciferol 1.25 MG (36523 UT) Capsule 1 capsule Orally Once a [...] Treatment: * Billing Information: * Visit Code: 69084 Office Visit, Est Pt., Level 4. * Procedure Codes: * SPERSON FLYING SQUAD Sign off status: Pending * Provider: MD SCOT, F.A.C.P, F.A.S.N. Date: 07/02/2024
--- OUTSIDE RECORDS SUMMARY | 2024-10-26 03:29 | XMS_ITS | CONTINUITY OF CARE DOCUMENT ---
Author Name dalealli dalealli Address Unknown Organization [facility] Address [address] [facility] [address] [place] [address] Phone [phone] Care Team Providers Care Barn Operator Name Role Phone Freddy Moran MD Unavailable [phone] ROBER LUX Unavailable [phone] PRATIMA ORDOÑEZ MD Unavailable [phone] PROBLEMS Condition Status Date Provider Notes Shortness [...] In-person encounter Office Visit Freddy Moran MD [place] [facility] - In-person encounter Office Visit Freddy Moran MD [facility] - In-person encounter Office Visit Freddy Moran MD [facility] - In-person encounter Office Visit Thierry Niño MD [facility] - In-person encounter Office Visit Freddy Moran MD [facility] Preop cardiovasc. examination - In-person encounter Office Visit Freddy Moran MD [facility] - In-person encounter Office Visit Freddy Moran MD [facility] Venous insufficiencyPVD - mild by duplex [...] RIDER blood pressure, systolic 130 mm[Hg] m candelaria [place] RIDER pulse rate 80 /min Thierry [...] .73_m2} LinkLogic >59 creatinine, serum 0.71 mg/dL [facility].00 urea nitrogen, blood 22 mg/dL [facility] 8-27 blood glucose, random 175 mg/dL [facility] 65-99 High troponin I 0.332 ng/mL [facility] troponin I 0.360 ng/mL [facility] thyroid stimulating hormone, serum <0.015 [facility] thyroxine, serum, free 3.23 ng/dL [facility] LDL cholesterol, serum 66 mg/dL [facility] platelet count 202 10*3/uL [facility] red blood cell distribution width 13.2 % [facility] mean corpuscular hemoglobin concentration, RBC 31.6 g/dL [facility] mean corpuscular hemoglobin, RBC 29.2 pg [facility] mean corpuscular volume, RBC 92.6 fL [facility] hematocrit, blood 32.3 % [facility] hemoglobin, blood 10.2 g/dL [facility] erythrocyte (RBC) count 3.49 10*6/mm3 [facility] leukocyte count, blood 6.4 10*3/mm3 [facility] platelet count 202 10*3/mm3 [facility] carbon dioxide, venous blood 26 mmol/L [facility] protein, total, serum 6.9 g/dL [facility] albumin, serum 3.9 g/dL [facility] bilirubin, serum, total 0.70 mg/dL [facility] alkaline phosphatase, serum 114 1/L [facility] alanine aminotransferase (SGPT), serum 12 1/L [facility] aspartate aminotransferase (SGOT), serum 20 1/L [facility] D-dimer quantitative mcg/mL 1.85 ug/mL [facility] B-type natriuretic peptide 182 pg/mL [facility] blood glucose, random 166 mg/dL [facility] creatinine, serum 0.91 mg/dL [facility] urea nitrogen, blood 27 mg/dL [facility] carbon dioxide, venous blood 23 mmol/L [facility] chloride, serum 103 mmol/L [facility] potassium, serum 3.6 mmol/L [facility] sodium, serum 138 mmol/L [facility] magnesium, serum 1.8 mg/dL [facility] calcium, serum 9.2 mg/dL [facility] blood glucose, random 123 mg/dL [facility] creatinine, serum 0.74 mg/dL [facility] urea nitrogen, blood 22 mg/dL [facility] carbon dioxide, serum, total 26 mmol/L [facility] chloride, serum 105 mmol/L [facility] potassium, serum 3.6 mmol/L [facility] sodium, serum 139 mmol/L [facility] HISTORY OF MEDICATION USE Medication Status [...] levothyroxine 150 mcg tablet active Christi Ventimiglia [facility] rosuvastatin 40 mg tablet completed - [...] 100 mcg tablet completed - 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 ergocalciferol (vitamin D2) 1,250 mcg (50,000 unit) capsule active Rebecca Lentz Toprol XL 25 mg tablet extended release 24 hr completed tablet by mouth once a day - 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 levothyroxine 150 mcg tablet completed 1 tablet [...] mouth once a day - Christi Ventimiglia [facility] LEVOTHYROXINE SODIUM 150 MCG ORAL TABLET [...] history of marijuana use no Christi Ventimiglia [facility] drug use no Christi Ventimig elicia [facility] alcohol use, average drinks per day social Christi Ventimiglia [facility] alcohol use yes Christi Ventimig elicia [facility] smoking status Never smoker Christichante Christinam iglia [facility] social history E&M S moking History: [...] Payer name Policy type / Coverage type [place] red democrat ID [employer] PPO O [id number] ADVANCE DIRECTIVES Name Date DISCUSSED - NO DECISION MADE TREATMENT PLAN Date Name Performer [id number],S, Nathaniel Doreneeder [id number],S, Nathaniel Doreneeder [id number],S,S he does have significant venous reflux in bilateral SFA from duplex in 2019 Nathaniel Aspendi [id number],C, N o SOB Nathanielnelson Moejuancho [id number],C, she has LE edema but no redness. She does have significant venous reflux in bilateral SFA from duplex in 2019. I advised her to wear compression socks and elevate her legs. I discussed possible Venaseal in the future. Nathaniel Moejuancho [id number],S, H er updated medication list for this problem includes: Toprol Xl 25 Mg Tablet Extended Release 24 Hr (Metoprolol succinate) ..... Tablet by mouth once a day Thierry Niño MD [id number],S, Thierry Niño MD [id number],S, S he appears to be feeling better hard to tell if she has venous insuffiency or HFpEF. Thierry Niño MD [id number],S, B P today: 130/70 P rior BP: 126/70 (05/09/2021) Labs Reviewed: C reat: 0.71 (02/18/2020) L DL: 66 (01/12/2020) Her updated medication list for this problem includes: Lisinopril-hydrochlorothiazide 20-25 Mg Tablet (Lisinopril-hydrochlorothiazide) ..... 1 tablet by mouth once a day Toprol Xl 25 Mg Tablet Extended Release 24 Hr (Metoprolol succinate) ..... Tablet by mouth once a day Thierry Niño MD [id number],C,. 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 She is allowed to hold the Xarelto per the surgeon's instructions. H er updated medication list for this problem includes: Lisinopril-hydrochlorothiazide 20-25 Mg Tablet (Lisinopril-hydrochlorothiazide) ..... 1 tablet by mouth once a day Toprol Xl 25 Mg Tablet Extended Release 24 Hr (Metoprolol succinate) ..... Tablet by mouth once a day Lyudmila Meraz [id number],C, H er updated medication list for this problem includes: Toprol Xl 25 Mg Tablet Extended Release 24 Hr (Metoprolol succinate) ..... Tablet by mouth once a day Lyudmila Meraz [id number],C, H er updated medication list for this problem includes: Euthyrox 100 Mcg Tablet (Levothyroxine) Lyudmila Kt [id number],C, P rior BP: 126/70 (05/09/2021) Labs Reviewed: C reat: 0.71 (02/18/2020) L DL: 66 (01/12/2020) Her updated medication list for this problem includes: Lisinopril-hydrochlorothiazide 20-25 Mg Tablet (Lisinopril-hydrochlorothiazide) ..... 1 tablet by mouth once a day Toprol Xl 25 Mg Tablet Extended Release 24 Hr (Metoprolol succinate) ..... Tablet by mouth once a day Lyudmila Kt [id number],CO gus doing well. Denies chest pain or SOB. Continues on current medications. 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 She is allowed to hold the Xarelto per the surgeon's instructions. Lyudmila Meraz [id number],B,No SOB Freddy Moran MD [id number],B, B P today: 126/70 P rior BP: 161/70 (04/19/2020) Labs Reviewed: C reat: 0.71 (02/18/2020) L DL: 66 (01/12/2020) Her updated medication list for this problem includes: Lisinopril-hydrochlorothiazide 20-25 Mg Tablet (Lisinopril-hydrochlorothiazide) ..... 1 tablet by mouth once a day Toprol Xl 25 Mg Tablet Extended Release 24 Hr (Metoprolol succinate) ..... Tablet by mouth once a day Freddy Moran MD [id number],S,S he still does not want intervention for her veins Freddy Moran MD [id number],S,I n NSR today. Her updated medication list [...] Levothyroxine 150 Mcg Tablet (Levothyroxine) Christi Ventimiglia [facility] Cardiology:noted on last venous doppler w ill repeat venous doppler as continued LE edema e ncouraged compression Christi Ventimiglia [facility] Cardiology:BP 147/79 continue presesnt medication regimen [...] day due for follow up Christi Ocampoguillermodiane [facility] Cardiology:last repo rt in 2009 r emains on xarelto will hold d/t hematuria m ay need prophylatic dosing Christichante Pagan [facility] Cardiology:in NSR to day a ppears to have been NSR on last EKG as well w ill update tele to look at afib burden as holding xarelto d/t hematuria The following medications were removed from the medication list: Toprol Xl 25 Mg Tablet Extended Release 24 Hr (Metoprolol succinate) ..... Tablet by mouth once a day Christi Ej [facility] Cardiology Nathanielnelson Kolb Cardiology Nathaniel di Cardiology:She does have significant venous reflux in bilateral SFA from duplex in 2019 Nathanielnelson Kolb Cardiology: N [facility]: she has LE edema but no [...] MD Cardiology:. 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 [...] current medications. 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 [...] mouth once a day Freddy Moran MD [facility] hospital follow up:Her updated medication list for this problem includes: Levothyroxine Sodium 150 Mcg Oral Tablet (Levothyroxine sodium) ..... One tablet daily [facility] follow up:BP today: 161/70 Her updated medication list for this problem includes: Lisinopril-hydrochlorothiazide 20-25 Mg Oral Tablet (Lisinopril-hydrochlorothiazide) ..... One tablet daily [facility] follow up:JOHAN's showed mild disease. [facility] follow up:Venous duplex showed venous insufficiency, but she is not interested in intervention at this time. [facility] follow up:Venous duplex showed venous insufficiency, but she is not interested in intervention at this time. [facility] follow up:ProBNP was 343. COVID-19 antibodies were nagtive. Echo showed normal EF and LAE. Pt had an episode of AFib treated at [facility] in [place] and says she had a stress test there. [facility] follow up:Pt had an episode of AFib treated at [facility] in [place] and says she had a stress test there. She's in sinus bradycardia today. Will obtain her records. Recommending a home sleep study. [facility] Telehealth:Her updat ed medication list for this problem includes: Lisinopril-hydrochlorothiazide 20-25 Mg Oral Tablet (Lisinopril-hydrochlorothiazide) ..... One tablet daily Davey [facility] Telehealth:Her [facility] ed medication list for this problem includes: Levothyroxine Sodium 150 Mcg Oral Tablet (Levothyroxine sodium) ..... One tablet daily [facility] Telehealth:Orders: V enous Doppler Bilateral LE - Reflux (CPT-63234) A rterial Duplex Bi-Lower EX (CPT-78004) [facility] Telehealth:Orders: C omplete Echo (CPT-67928) B ASIC METABOLIC PANEL W/EGFR (29427) P ROBNP, N TERMINAL ([id number]) [facility] Telehealth:Pt had a recent admission to [facility]. She presented with chest pain, SOB and palpitations and was found to be in AFib with RVR. She was treated with IV Cardizem and converted to NSR. Also started on Xarelto. Over all feeling well but did have an episode of palpitations at home. Orders: M obile Cardiac Tele (CPT-59790) C omplete Echo (CPT-76551) S leep Study Home (CPT-16928) Davey Ferraroberg Date Name Microalb/Creatinine Urine, Random [...] Moran MD completed Event Monitor Chase Chen [facility] ed
--- OUTSIDE RECORDS SUMMARY | 2024-10-26 03:29 | XMS_ITS ---
Author Organization [facility] Address [address] [place] [address] [place] [address] Care Team Providers Care Stock Clipper Name Role Phone Isaiah Kevin Unavailable [phone] Encounters Encounter Location Date Provider Diagnosis [place] [facility] 2043 [facility] [address] [place] [address] 10/01/2024 Kevin Colon PLAN OF TREATMENT Next Appt Details Provider Name:Kevin Colon , 2024 01:15:00 PM, 2043 [facility], [facility], [place], [address], Progress Notes * Rustam BOXEsmeOB:1940 ([age] yo F)Acc No.[id number]:10/01/2024 Progress Notes Patient: Wendy BOX Provider: MD SCOT, Stephanie.Lenny.C.P, F.A.S.N. :1940 Age:83 Y Sex:Female Date:10/01/2024 Address:[address] [place] [address] Subjective: * Chief Complaints: * * Medical History: Objective: Assessment: Plan: * Treatment: * Billing Information: * Visit Code: * Procedure Codes: * L MACHINIST Sign off status: Pending * Provider: MD SCOT, Stephanie.Lenny.C.P, F.A.S.N. Date: 10/01/2024
--- OUTSIDE RECORDS SUMMARY | 2024-10-26 03:29 | XMS_ITS | Patient Health Record ---
Author Organization [facility] Address [address] [place] [address] Care Team Providers Care Career And Transition Teacher Name Role Phone Kevin Colon Unavailable [phone] REASON FOR REFERRAL No Information MEDICATIONS Medication SIG (Take, Route, Frequency, Duration) Notes Start Date End Date Status Losartan Potassium 25 MG 1 tablet Orally Once a day for 90 day(s) 01/30/2024 Active PROBLEMS Problem Type ICD Code Onset Dates Problem Status W/U Status Risk SNOMED Code Notes Problem Secondary hyperparathyroid ism, not elsewhere classified (E21.1) Active confirmed Secondary hyperparathyroidism (39130912) Problem Essential (primary) hypertension (I10) Active confirmed Essential hypertension (74914749) Problem Renal osteodystrophy (N25.0) Active confirmed Renal osteodyst rophy (56818784) Problem Edema, unspecified (R60.9) Active confirmed Edema (59987938) Problem Proteinuria, unspecified (R80.9) Active confirmed Proteinuria (22334210) Problem Chronic kidney disease, stage 3 unspecified (N18.30) Active confirmed Chronic kidney disease stage 3 (disorder) (718279264) Problem Chronic kidney disease, stage 3a (N18.31) Active confirmed Chronic kidney disease stage 3A (disorder) (589977203) Encounters Encounter Location Date Provider Diagnosis [facility] [address] [place] [address] 01/02/2024 Kevin Colon Chronic kidney disea se, stage 3a N18.31 ; Essential (primary) hypertension I10 ; Edema, unspecified R60.9 ; Renal osteodystrophy N25.0 ; Proteinuria, unspecified R80.9 and Secondary hyperparathyroidism, not elsewhere classified E21.1 [facility] [address] [address] 01/30/2024 Kevin Colon Chronic kidney disea se, stage 3a N18.31 ; Essential (primary) hypertension I10 ; Edema, unspecified R60.9 ; Renal osteodystrophy N25.0 ; Proteinuria, unspecified R80.9 and Secondary hyperparathyroidism, not elsewhere classified E21.1 [facility] [address] [place] [address] 04/23/2024 Kevin Colon Chronic kidney disea se, stage 3a N18.31 ; Essential (primary) hypertension I10 ; Edema, unspecified R60.9 ; Renal osteodystrophy N25.0 ; Proteinuria, unspecified R80.9 and Secondary hyperparathyroidism, not elsewhere classified E21.1 [facility] [address] [place] [address] 07/02/2024 Kevin Colon Chronic kidney disea se, stage 3 unspecified N18.30 ; Essential (primary) hypertension I10 ; Edema, unspecified R60.9 ; Renal osteodystrophy N25.0 ; Proteinuria, unspecified R80.9 and Secondary hyperparathyroidism, not elsewhere classified E21.1 [facility] [address] [place] [address] 10/01/2024 Kevin Colon [facility] [address] [place] [address] 01/30/2024 Kevin Colon ASSESSMENTS Encounter Date Diagnosis [...] Name:Kevin Colon , 2024 01:15:00 PM, 2043 [facility], [facility], [place], [address],
--- OUTSIDE RECORDS SUMMARY | 2024-10-26 03:29 | XMS_ITS | Data Portability ---
Author Organization [place] - [facility], Main Office Address [address] [place] [address] Care Team Providers Care Multiple Punch Press Operator Name Role Phone SONYA JACKSON Primary Care Provider DARLING ANGEL Pocket Cutter FREDDY MORAN Podopediatrician Assessment Encounter Date Assessment Date Assessment LastModified by Organization Details LastModified Time 08/11/2023 08/11/2023 This note is dictated and transcribed by [employer]. Beef Pusher variances may occur. Despite proofreading, typographical errors may occur. Occasional wrong-word or '[id number]' substitutions may have occurred due to the inherent limitations of voice recording. Read the chart carefully and recognize, using context, where substitutions have occurred. [email or web address] Not available 08/11/2023 17:35:41 11/27/2023 11/27/2023 Addendum: 12/03/2023: Case sent to triage 12/01/2023: Chol 224, TG 201, LDL 128 Urine micro alb 99.0 TSH 20.20H, FT4 0.65L Gluc 128 VIT D 27.6H A1C 7.2 [email or web address] Not available 12/03/2023 15:11:51 02/26/2024 02/26/2024 12/01/2023: Chol 224, TG 201, LDL 128 Urine micro alb 99.0 TSH 20.20H, FT4 0.65L Gluc 128 VIT D 27.6H A1C 7.2 [facility] Not available 02/26/2024 11:19:41 05/27/2024 05/27/2024 12/01/2023: Chol 224, TG 201, LDL 128 Urine micro alb 99.0 TSH 20.20H, FT4 0.65L Gluc 128 VIT D 27.6H A1C 7.2 02/26/2024: A1C 7.0 TSH <0.015L, FT4 2.27H BUN 21 H/H 11.1/33.9 05/28/2024: Case sent 06/14/2024: A1C 7.2 TSH 19.5H, FT4 0.65L VIT D 25.9 Urine micro alb 74.3H Gluc 136, BUN 27, GFR 53 TG 214 Not available 06/14/2024 19:02:13 09/21/2024 09/21/2024 12/01/2023: Chol 224, TG 201, LDL 128 Urine micro alb 99.0 TSH 20.20H, FT4 0.65L Gluc 128 VIT D 27.6H A1C 7.2 02/26/2024: A1C 7.0 TSH <0.015L, FT4 2.27H BUN 21 H/H 11.1/33.9 05/28/2024: Case sent 06/14/2024: A1C 7.2 TSH 19.5H, FT4 0.65L VIT D 25.9 Urine micro alb 74.3H Gluc 136, BUN 27, GFR 53 TG 214 I have reconciled the patient's medications post their discharge from inpatient facility. Not available 09/21/2024 17:16:33 Plan of Treatment Reminders Order Date Submit Date Provider Last Modified By Organization Details Last Modified Time Details Appointments Any 15 2024 02:15P Patricia barnes MD Not available Not available Not available Lab lipid panel, serum 2023 024 [facility] (Lab), [address] [place], [address], 12/01/2023 11:43:11 CBC w/ auto diff 2023 024 [facility] (Lab), [address] [place], [address], 12/01/2023 11:04:54 TSH, serum or plasma 2023 024 [facility] (Lab), [address] [place], [address], 12/01/2023 12:06:57 CMP, serum or plasma 2023 024 [facility] (Lab), [address] [place], [address], 12/01/2023 11:43:26 vitamin D, 25-hydrox y, total, serum [address] (Lab), [address] [place], [address], 12/04/2023 09:32:18 glycohemo globin, total, blood 2023 024 [facility] (Lab), [address] [place], [address], 12/01/2023 12:24:41 microalbu min, urine 2023 024 [facility] (Lab), [address] [place], [address], 12/01/2023 11:48:06 lipid panel, serum 2023 024 [facility] (Lab), [address] [place], [address], 02/26/2024 13:46:36 CBC w/ auto diff 2023 024 [facility] (Lab), [address] [place], [address], 02/26/2024 12:41:04 TSH, serum or plasma 2023 024 [facility] (Lab), [address] [place], [address], 02/26/2024 13:46:13 CMP, serum or plasma 2023 024 [facility] (Lab), [address] [place], [address], 02/26/2024 13:46:52 vitamin D, 25-hydrox y, total, serum [email or web address] (Lab), [address] [place], [address], 03/04/2024 13:48:26 glycohemo globin, total, blood 2023 024 [facility] (Lab), [address] [place], [address], 02/26/2024 13:52:44 microalbu min, urine 2023 024 [facility] (Lab), [address] [place], [address], 02/26/2024 15:25:40 lipid panel, serum 2023 024 [facility] (Lab), [address] [place], [address], 05/28/2024 13:43:21 CBC w/ auto diff 2023 024 [facility] (Lab), [address] [place], [address], 05/28/2024 13:58:06 TSH, serum or plasma 2023 024 [facility] (Lab), [address] [place], [address], 05/28/2024 13:49:22 CMP, serum or plasma 2023 024 [facility] (Lab), [address] [place], [address], 05/28/2024 13:43:31 vitamin D, 25-hydrox y, total, serum [address] (Lab), [address] [place], [address], 06/03/2024 16:35:06 glycohemo globin, total, blood [address] (Lab), [address] [place], [address], 06/03/2024 16:35:06 microalbu min, urine 2023 024 [facility] (Lab), [address] [place], [address], 05/28/2024 13:53:05 lipid panel, serum 2024 025 [facility] (Lab), [address] [place], [address], 10/19/2024 14:01:30 CBC w/ auto diff 2024 025 [facility] (Lab), [address] [place], [address], 10/19/2024 13:54:50 TSH, serum or plasma 2024 025 [facility] (Lab), [address] [place], [address], 10/19/2024 14:41:39 CMP, serum or plasma 2024 025 [facility] (Lab), [address] [place], [address], 10/19/2024 14:01:35 vitamin D, 25-hydrox y, total, serum 2024 025 [facility] (Lab), [address] [place], [address], 10/18/2024 04:03:22 glycohemo globin, total, blood 2024 025 [facility] (Lab), [address] [place], [address], 10/19/2024 15:00:56 microalbu min, urine 2024 025 [facility] (Lab), [address] [place], [address], 10/19/2024 14:47:09 Referral cardiolog ist referral 2023 024 [place], [address], [place], [address], 12/25/2023 08:52:45 podiatris t referral 2023 024 thania Harley DPM, [address] [facility], [address], [place], [address], 06/22/2024 08:10:19 orthopedi c surgeon referral 2023 024 [email or web address] Otilio Soriano MD, [address] [facility], [place], [address], 05/26/2024 14:43:48 cardiolog ist referral 2023 024 [email or web address] [place], [address], [address], [place], [address], 04/01/2024 08:45:43 podiatris t referral 2023 024 thania Harley DPM, [address] [facility], [address], [place], [address], 08/26/2024 09:08:39 orthopedi c surgeon referral 2023 024 [email or web address] Otilio Soriano MD, [address] [facility], [place], [address], 08/26/2024 09:08:39 cardiolog ist referral 2023 024 [place], [address], [address], [place], [address], 05/27/2024 13:10:33 podiatris t referral 2023 024 Heron Harley DPM, [address], [address], [place], [address], 05/27/2024 13:11:00 orthopedi c surgeon referral 2023 024 [email or web address] Otilio Soriano MD, [address] [facility], [place], [address], 05/27/2024 13:11:01 cardiolog ist referral 2024 025 [email or web address] [place], [address], [address], [place], [address], 09/22/2024 09:33:13 podiatris t referral - Please call patient to schedule. 2024 025 VIR[place]IA Harley DPM, [address] [facility], [address], [place], [address], 09/28/2024 08:15:46 orthopedi c surgeon referral - Please call patient to schedule. 2024 025 [email or web address] Soriano MD, [address] [facility], [place], [address], 09/28/2024 08:13:22 Procedures None recorded. Surgeries None recorded. Imaging None recorded. Medication Orders None recorded. Patient TargetsNo targets recorded. Patient Instructions Encounter Date Encounter Id Patient Instructions Last Modified By Organization Details Last Modified Time 11/27/2023 [id number] diabetic eye exam* [place] Not availa ble 10/12/2024 16:14:43 02/26/2024 [id number] dementia rating scale-2* Not available 03/01/2024 18:40:20 alcohol misuse* [email or web address] Not available 02/26/2024 12:53:32 depression screening* [email or web address] Not available 02/26/2024 12:53:53 Timed Up and Go test (TUG)* [email or web address] Not available 02/26/2024 12:54:12 multi-dimensiona l health assessment questionnaire* [email or web address] Not available 03/01/2024 18:40:20 advance directiv es: care instructions [email or web address] Not available 03/01/2024 18:40:20 advance care planning: care instructions Not available 03/01/2024 18:40:20 [place] Advance Directives Not available 03/01/2024 18:40:20 Personalized Hea lth Plan and Screening Recommendations Advance Directives - Do you have one? No You have indicated that you are capable of preparing your advance care directive Advance Directives - Do we have your advance directive on file in your health record? Primary Prevention/Interven tion (prevents or decreases the chance of common diseases from occurring) Smoking Risk: Non Smoker Alcohol Misuse Screening: Negative Weight: Appropriate Overwei ght continue your current weight loss efforts try to lose 5% of your body weight try to lose 10% of your body weight Physical activity: Need more exercise/physical activity decrease sitting time to no more than 5hr/day Nutrition: Good Average Refer to attached handout Heart-Healthy Diet: After Your Visit Refer to attached handout DASH Diet: After Your Visit Fall Risk (screened today): High Refer to attached handout Preventing Falls: After your Visit Vaccines Pneumococcal: Ordered Recommended today Recommended today, but you have declined Influenza: Your next one in the fall of this year Chronic Disease Risks Stroke: Low Risk Intermediate Risk Heart Attack: Low risk Intermediate Risk Clogging of the Arteries: Low risk Intermediate Risk Diabetes: High Risk Active diagnosis, Continue current treatment plan Secondary Prevention/Interven tion (detects treatable diseases before they may cause symptoms, disability, or ) Breast Cancer Screening with mammogram: No screening necessary Cervical/Uterine/Ov breana Cancer Screening: No screening necessary Osteoporosis Screening: Your next DEXA in: Ordered Recomme nded today Recommended today, but you have declined Colon Cancer Screening: No screening necessary Eye Disease Screening: Ordered Recommended today Dementia Risk: Low Intermediate I have no recommendations Depression Screening: Negative Not available 02/26/2024 12:56:30 09/21/2024 [id number] Thank you for yo ur visit to our office today. We would like to request that you reach out to your referring or previous provider and request that they send us a Summary of Care in electronic form, so that we may have it on file in your medical record. At your visit, we had the medical records we needed to provide you with the best possible care; however, for insurance purposes, an electronic Summary of Care is beneficial. Thank you for your assistance in obtaining this information and we look forward to providing continued care to you. Please review your medication list from the Summary of Care for this visit. If there are any differences from what you are currently taking at home, please call us to discuss. [email or web address] Not available 09/21/2024 17:01:05 Homebound Status : {{Patient has an inability to leave the home without a taxing effort and assistance from another person Does not meet homebound status}} Required Home Health Services: {{none halfway, physical therapy, occupational therapy halfway, physical therapy halfway}} Durable Medical Equipment needed: {{cane walker walke r with seat manual wheelchair bedside commode oxygen}} Billing Guidelines CPT code 87918- Transitional Care Management services with moderate medical decision complexity (srde-da-cewh visit within 14 days of discharge). CPT code 87601- Transitional Care Management services with high medical decision complexity (btlb-dd-jcbc visit within 7 days of discharge). [email or web address] Not available 09/21/2024 17:01:05 Reason for Referral Podopediatrician Referral for Ed tremaine of lower extremity Referring Physician: Sonya Jackson [facility], Encounter Date: 11/27/2023 Home Sales Service Professional Referral for Vick er toe Referring Physician: Sonya Jackson [facility], Encounter Date: 11/27/2023 Orthopedic Surgeon Referral for Pain of bilateral knee joints Referring Physician: Sonya Jackson [facility], Encounter Date: 11/27/2023 Podopediatrician Referral for Ed tremaine of lower extremity Referring Physician: Zaida Avina Medicine, Encounter Date: 02/26/2024 Home Sales Service Professional Referral for Vick er toe Referring Physician: Zadia Avina Medicine, Encounter Date: 02/26/2024 Orthopedic Surgeon Referral for Pain of bilateral knee joints Referring Physician: Sonya Jackson [facility], Encounter Date: 02/26/2024 Podopediatrician Referral for Ed tremaine of lower extremity Referring Physician: Zaida Avina, Encounter Date: 05/27/2024 Home Sales Service Professional Referral for Vick er toe Referring Physician: Zaida Avina, Encounter Date: 05/27/2024 Orthopedic Surgeon Referral for Pain of bilateral knee joints Referring Physician: Zaida Avina, Encounter Date: 05/27/2024 Podopediatrician Referral for Ed tremaine of lower extremity Referring Physician: Zaida Avina, Encounter Date: 09/21/2024 Home Sales Service Professional Referral for Vick er toe Please call patient to schedule. Referring Physician: Zaida Avina, Encounter Date: 09/21/2024 Orthopedic Surgeon Referral for Pain of bilateral knee joints Please call patient to schedule. Referring Physician: Zaida Avina, Encounter Date: 09/21/2024 Results Created Date Observation Date Name Description Value Unit Range Abnormal Flag Note LastModifiedBy Organization Detail LastModifiedTime 12/01/19 24 12/01/2023 CBC/C OMPLE TE BLD COUNT W/DIF F white blood cells 9.1 x10'3 /uL 4.2-10 .8 Not Available [facility] (Lab) [address] [place], [address], 12/01/2023 11:04:54 12/01/19 24 12/01/2023 CBC/C OMPLE TE BLD COUNT W/DIF F red blood cells 4.26 x10'6 /uL 3.80-5 .20 Not Available [facility] (Lab) [address] [place], [address], 12/01/2023 11:04:54 12/01/19 24 12/01/2023 CBC/C OMPLE TE BLD COUNT W/DIF F hemoglobin 13.1 g/dL 12.0-1 5.6 Not Available [facility] (Lab) [address] [place], [address], 12/01/2023 11:04:54 12/01/19 24 12/01/2023 CBC/C OMPLE TE BLD COUNT W/DIF F hematocrit 41.4 % 35.7-4 5.7 Not Available [facility] (Lab) [address] [place], [address], 12/01/2023 11:04:54 12/01/19 24 12/01/2023 CBC/C OMPLE TE BLD COUNT W/DIF F mean red cell volume 97.2 fL 82.0-9 9.0 Not Available [facility] (Lab) [address] [place], [address], 12/01/2023 11:04:54 12/01/19 24 12/01/2023 CBC/C OMPLE TE BLD COUNT W/DIF F mean red cell hemoglobin 30.8 pg 27.0-3 3.0 Not Available [facility] (Lab) [address] [place], [address], 12/01/2023 11:04:54 12/01/19 24 12/01/2023 CBC/C OMPLE TE BLD COUNT W/DIF F mean RBC HGB concentratio n 31.6 g/dL 31.0-3 6.0 Not Available [facility] (Lab) [address] [place], [address], 12/01/2023 11:04:54 12/01/19 24 12/01/2023 CBC/C OMPLE TE BLD COUNT W/DIF F red cell distribution width 13.7 % 11.8-1 5.5 Not Available [facility] (Lab) [address] [place], [address], 12/01/2023 11:04:54 12/01/19 24 12/01/2023 CBC/C OMPLE TE BLD COUNT W/DIF F platelets 219 x10'3 /uL 150-40 0 Not Available [facility] (Lab) [address] [place], [address], 12/01/2023 11:04:54 12/01/19 24 12/01/2023 CBC/C OMPLE TE BLD COUNT W/DIF F mean platelet volume 11.3 fL 9.0-12 .4 Not Available [facility] (Lab) [address] [place], [address], 12/01/2023 11:04:54 12/01/19 24 12/01/2023 CBC/C OMPLE TE BLD COUNT W/DIF F neutrophils 75.4 % 39.0-7 2.0 high Not Available [facility] (Lab) [address] [place], [address], 12/01/2023 11:04:54 12/01/19 24 12/01/2023 CBC/C OMPLE TE BLD COUNT W/DIF F lymphocytes 15.9 % 16.0-4 7.0 low Not Available [facility] (Lab) [address] [place], [address], 12/01/2023 11:04:54 12/01/19 24 12/01/2023 CBC/C OMPLE TE BLD COUNT W/DIF F monocytes 5.7 % 5.0-12 .0 Not Available [facility] (Lab) [address] [place], [address], 12/01/2023 11:04:54 12/01/19 24 12/01/2023 CBC/C OMPLE TE BLD COUNT W/DIF F eosinophils 1.7 % 1.0-7. 0 Not Available [facility] (Lab) [address] [place], [address], 12/01/2023 11:04:54 12/01/19 24 12/01/2023 CBC/C OMPLE TE BLD COUNT W/DIF F basophils 0.7 % 0.0-2. 0 Not Available [facility] (Lab) [address] [place], [address], 12/01/2023 11:04:54 12/01/19 24 12/01/2023 CBC/C OMPLE TE BLD COUNT W/DIF F immature granulocytes 0.6 % 0.00-0 .50 high Not Available [facility] (Lab) [address] [place], [address], 12/01/2023 11:04:54 12/01/19 24 12/01/2023 CBC/C OMPLE TE BLD COUNT W/DIF F neutrophils, absolute count 6.84 x10'3 /uL 1.5-8. 0 Not Available [facility] (Lab) [address] [place], [address], 12/01/2023 11:04:54 12/01/19 24 12/01/2023 CBC/C OMPLE TE BLD COUNT W/DIF F lymphocytes, absolute count 1.44 x10'3 /uL 1.07-3 .43 Not Available [facility] (Lab) [address] [place], [address], 12/01/2023 11:04:54 12/01/19 24 12/01/2023 CBC/C OMPLE TE BLD COUNT W/DIF F monocytes, absolute count 0.52 x10'3 /uL 0.29-0 .99 Not Available [facility] (Lab) [address] [place], [address], 12/01/2023 11:04:54 12/01/19 24 12/01/2023 CBC/C OMPLE TE BLD COUNT W/DIF F eosinophils, absolute count 0.15 x10'3 /uL 0.02-0 .53 Not Available [facility] (Lab) [address] [place], [address], 12/01/2023 11:04:54 12/01/19 24 12/01/2023 CBC/C OMPLE TE BLD COUNT W/DIF F basophils, absolute count 0.06 x10'3 /uL 0.01-0 .08 Not Available [facility] (Lab) [address] [place], [address], 12/01/2023 11:04:54 12/01/19 24 12/01/2023 CBC/C OMPLE TE BLD COUNT W/DIF F immature granulocytes ,absolute 0.05 x10'3 /uL 0.00-0 .05 Not Available [facility] (Lab) [address] [place], [address], 12/01/2023 11:04:54 12/01/19 24 12/01/2023 CBC/C OMPLE TE BLD COUNT W/DIF F nucleated red blood cells 0.0 % -0 Not Available [facility] (Lab) [address] [place], [address], 12/01/2023 11:04:54 12/01/19 24 12/01/2023 CBC/C OMPLE TE BLD COUNT W/DIF F NRBC# 0.00 x10'3 /uL Not Available [facility] (Lab) [address] [place], [address], 12/01/2023 11:04:54 12/01/19 24 12/01/2023 LIPID PANEL cholesterol 224 mg/dL 140-19 9 high NIH REFUGIO NSUS RECOM MENDA TION FOR MUSA STERO L: ADULT CHILD LOW RISK: <200 <170 BORDE RLINE : <200- 239 ----- HIGH RISK: >240 >200 Not Available [facility] (Lab) [address] [place], [address], 12/01/2023 11:43:11 12/01/19 24 12/01/2023 LIPID PANEL triglyceride s 201 mg/dL 0-150 high NIH REFUGIO NSUS REPOR T RECOM MENDA TION FOR TRIGL YCERI JAK: ADULT CHILD LOW RISK: <150 ----- BODER LINE: 150-1 99 ----- HIGH RISK: >200 ----- Not Available [facility] (Lab) [address] [place], [address], 12/01/2023 11:43:11 12/01/19 24 12/01/2023 LIPID PANEL HDL cholesterol 56 mg/dL 40- Not Available [facility] (Lab) [address] [place], [address], 12/01/2023 11:43:11 12/01/19 24 12/01/2023 LIPID PANEL LDL cholesterol, calculated 128 mg/dL 0-130 NIH REFUGIO NSUS REPOR T RECOM MENDA TIONS FOR LDL: ADULT CHILD LOW RISK <130 <110 (OPTI MAL LDL) <100 ----- BORDE RLINE : 130-1 59 ----- HIGH RISK: >160 >130 A TRIGL YCERI DE RESUL T >400 INVAL IDATE S THE CALCU LATIO N FOR LDL FRACT IONAT ION - THE LDL RESUL T WILL NOT BE REPOR ORIANA. Not Available [facility] (Lab) [address] [place], [address], 12/01/2023 11:43:11 12/01/19 24 12/01/2023 COMPR EHENS GUILLEROM METAB OLIC PANEL sodium 142 mmol/ L 137-14 5 Not Available [facility] (Lab) [address] [place], [address], 12/01/2023 14:13:54 12/01/19 24 12/01/2023 COMPR EHENS GUILLERMO METAB OLIC PANEL potassium 4.1 mmol/ L 3.5-5. 1 Not Available [facility] (Lab) [address] [place], [address], 12/01/2023 14:13:54 12/01/19 24 12/01/2023 COMPR EHENS GUILLERMO METAB OLIC PANEL chloride 105 mmol/ L 98-107 Not Available [facility] (Lab) [address] [place], [address], 12/01/2023 14:13:54 12/01/19 24 12/01/2023 COMPR EHENS GUILLERMO METAB OLIC PANEL carbon dioxide 27 mmol/ L 22-30 Not Available [facility] (Lab) [address] [place], [address], 12/01/2023 14:13:54 12/01/19 24 12/01/2023 COMPR EHENS GUILLERMO METAB OLIC PANEL anion gap 14.1 mmol/ L 14-22 Not Available [facility] (Lab) [address] [place], [address], 12/01/2023 14:13:54 12/01/19 24 12/01/2023 COMPR EHENS GUILLERMO METAB OLIC PANEL glucose 128 mg/dL 70-99 high Not Available [facility] (Lab) [address] [place], [address], 12/01/2023 14:13:54 12/01/19 24 12/01/2023 COMPR EHENS GUILLERMO METAB OLIC PANEL BUN 30 mg/dL 8-19 high Not Available [facility] (Lab) [address] [place], [address], 12/01/2023 14:13:54 12/01/19 24 12/01/2023 COMPR EHENS GUILLERMO METAB OLIC PANEL creatinine 1.01 mg/dL 0.66-1 .25 Not Available [facility] (Lab) [address] [place], [address], 12/01/2023 14:13:54 12/01/19 24 12/01/2023 COMPR EHENS GUILLERMO METAB OLIC PANEL GFR 52 Refer ence Range : [place] ge GFR Healt hy Adult : >60 mL/mi n/1.7 3 m2 Chron ic Kidne y Disea se: 15-60 mL/mi n/1.7 3 m2 Kidne y Failu re: <15/m L/min /1.73 m2 www.n iddk. nih.g ov The MDRD study equat ion has not been valid ated in child gurpreet <18 years of age; pregn ant women ; the elder ly >85 years of age; or in some racia l or ethni c subgr oups, such as Hispa nics. Outsi de the valid ated mamta eters , estim ated GFR is less accur ate, requi ring clini sedrick judgm ent on a case- by-ca se basis . Clini sedrick inter preta tion for other races and ages must be made by the clini parish. The MDRD study equat ion has not been valid ated for the evalu ation of serum creat inine relat ed to nutri [place] l statu s or medic ation usage . For perso ns <18 years of age, a pedia tric GFR calcu lator is avail able on the [facility] websi te: https ://kayleen pozo.o rg/pr ofess ional s/kdo qi/gf r_cal culat or Not Available [facility] (Lab) [address] [place], [address], 12/01/2023 14:13:54 12/01/19 24 12/01/2023 COMPR EHENS GUILLERMO METAB OLIC PANEL alkaline phosphatase 88 U/L 38-126 Not Available [facility] (Lab) [address] [place], [address], 12/01/2023 14:13:54 12/01/19 24 12/01/2023 COMPR EHENS GUILLERMO METAB OLIC PANEL alanine aminotransfe rase 19 U/L 0-35 Not Available [facility] (Lab) [address] [place], [address], 12/01/2023 14:13:54 12/01/19 24 12/01/2023 COMPR EHENS GUILLERMO METAB OLIC PANEL aspartate aminotransfe rase 26 U/L 15-37 Not Available [facility] (Lab) [address] [place], [address], 12/01/2023 14:13:54 12/01/19 24 12/01/2023 COMPR EHENS GUILLERMO METAB OLIC PANEL bilirubin, total 0.60 mg/dL 0.20-1 .30 Not Available [facility] (Lab) [address] [place], [address], 12/01/2023 14:13:54 12/01/19 24 12/01/2023 COMPR EHENS GUILLERMO METAB OLIC PANEL calcium 9.7 mg/dL 8.4-10 .2 Not Available [facility] (Lab) [address] [place], [address], 12/01/2023 14:13:54 12/01/19 24 12/01/2023 COMPR EHENS GUILLERMO METAB OLIC PANEL total protein 7.9 g/dL 6.3-8. 2 Not Available [facility] (Lab) [address] [place], [address], 12/01/2023 14:13:54 12/01/19 24 12/01/2023 COMPR EHENS GUILLERMO METAB OLIC PANEL albumin 4.6 g/dL 3.0-4. 4 high Not Available [facility] (Lab) [address] [place], [address], 12/01/2023 14:13:54 12/01/19 24 12/01/2023 COMPR EHENS GUILLERMO METAB OLIC PANEL globulin 3.3 g/dL 2.6-4. 2 Not Available [facility] (Lab) [address] [place], [address], 12/01/2023 14:13:54 12/01/19 24 12/01/2023 COMPR EHENS GUILLERMO METAB OLIC PANEL A/G ratio 1.4 ratio 1.0-2. 0 Not Available [facility] (Lab) [address] [place], [address], 12/01/2023 14:13:54 12/01/19 24 12/01/2023 MICRO ALBUM IN RANDO M URINE microalbumin , urine 99.0 mg/L 0.0-16 .6 high Not Available [facility] (Lab) [address] [place], [address], 12/01/2023 11:48:06 12/01/19 24 12/01/2023 TSH W/REF CORNELIO FT4 TSH with reflex free T4 20.200 uIU/m L 0.465- 4.680 high Not Available [facility] (Lab) [address] [place], [address], 12/01/2023 12:06:57 12/01/19 24 12/01/2023 HEMOG LOBIN A1C HA1C 7.2 % 4.0-6. 0 high Diabe ellen Scree parminder Crite danis: <5.7% Consi stent with absen ce of diabe ellen 5.7-6 .4% Consi stent with incre ased risk for diabe ellen (pred iabet es) >OR=6 .5% Consi stent with diabe ellen REFER ENCE: Diabe ellen Care 2016, 39(Corey ppl.1 ):s13 -s22 Not Available [facility] (Lab) [address] [place], [address], 12/01/2023 12:24:41 12/01/19 24 12/01/2023 VITAM IN D 25-HY DROXY [id number] 27.6 NG/mL 30-100 low Vitam in D Statu s: Defic ient: <20 ng/mL Insuf ficie nt: 20-29 ng/mL Suffi cient : 30-10 0 ng/mL Not Available [facility] (Lab) [address] [place], [address], 12/01/2023 12:52:51 12/01/19 24 12/01/2023 T4 FREE free T4 0.65 NG/dL 0.78-2 .19 low Not Available [facility] (Lab) [address] [place], [address], 12/01/2023 18:01:35 02/26/20 24 02/26/2024 CBC/C OMPLE TE BLD COUNT W/DIF F white blood cells 7.3 x10'3 /uL 4.2-10 .8 Not Available [facility] (Lab) [address] [place], [address], 02/26/2024 12:41:04 02/26/20 24 02/26/2024 CBC/C OMPLE TE BLD COUNT W/DIF F red blood cells 3.64 x10'6 /uL 3.80-5 .20 low Not Available [facility] (Lab) [address] [place], [address], 02/26/2024 12:41:04 02/26/20 24 02/26/2024 CBC/C OMPLE TE BLD COUNT W/DIF F hemoglobin 11.1 g/dL 12.0-1 5.6 low Not Available [facility] (Lab) [address] [place], [address], 02/26/2024 12:41:04 02/26/20 24 02/26/2024 CBC/C OMPLE TE BLD COUNT W/DIF F hematocrit 33.9 % 35.7-4 5.7 low Not Available [facility] (Lab) [address] [place], [address], 02/26/2024 12:41:04 02/26/20 24 02/26/2024 CBC/C OMPLE TE BLD COUNT W/DIF F mean red cell volume 93.1 fL 82.0-9 9.0 Not Available [facility] (Lab) [address] [place], [address], 02/26/2024 12:41:04 02/26/20 24 02/26/2024 CBC/C OMPLE TE BLD COUNT W/DIF F mean red cell hemoglobin 30.5 pg 27.0-3 3.0 Not Available [facility] (Lab) [address] [place], [address], 02/26/2024 12:41:04 02/26/20 24 02/26/2024 CBC/C OMPLE TE BLD COUNT W/DIF F mean RBC HGB concentratio n 32.7 g/dL 31.0-3 6.0 Not Available [facility] (Lab) [address] [place], [address], 02/26/2024 12:41:04 02/26/20 24 02/26/2024 CBC/C OMPLE TE BLD COUNT W/DIF F red cell distribution width 12.3 % 11.8-1 5.5 Not Available [facility] (Lab) [address] [place], [address], 02/26/2024 12:41:04 02/26/20 24 02/26/2024 CBC/C OMPLE TE BLD COUNT W/DIF F platelets 207 x10'3 /uL 150-40 0 Not Available [facility] (Lab) [address] [place], [address], 02/26/2024 12:41:04 02/26/20 24 02/26/2024 CBC/C OMPLE TE BLD COUNT W/DIF F mean platelet volume 10.9 fL 9.0-12 .4 Not Available [facility] (Lab) [address] [place], [address], 02/26/2024 12:41:04 02/26/20 24 02/26/2024 CBC/C OMPLE TE BLD COUNT W/DIF F neutrophils 69.0 % 39.0-7 2.0 Not Available [facility] (Lab) [address] [place], [address], 02/26/2024 12:41:04 02/26/20 24 02/26/2024 CBC/C OMPLE TE BLD COUNT W/DIF F lymphocytes 20.6 % 16.0-4 7.0 Not Available [facility] (Lab) [address] [place], [address], 02/26/2024 12:41:04 02/26/20 24 02/26/2024 CBC/C OMPLE TE BLD COUNT W/DIF F monocytes 6.7 % 5.0-12 .0 Not Available [facility] (Lab) [address] [place], [address], 02/26/2024 12:41:04 02/26/20 24 02/26/2024 CBC/C OMPLE TE BLD COUNT W/DIF F eosinophils 2.9 % 1.0-7. 0 Not Available [facility] (Lab) [address] [place], [address], 02/26/2024 12:41:04 02/26/20 24 02/26/2024 CBC/C OMPLE TE BLD COUNT W/DIF F basophils 0.5 % 0.0-2. 0 Not Available [facility] (Lab) [address] [place], [address], 02/26/2024 12:41:04 02/26/20 24 02/26/2024 CBC/C OMPLE TE BLD COUNT W/DIF F immature granulocytes 0.3 % 0.00-0 .50 Not Available [facility] (Lab) [address] [place], [address], 02/26/2024 12:41:04 02/26/20 24 02/26/2024 CBC/C OMPLE TE BLD COUNT W/DIF F neutrophils, absolute count 5.06 x10'3 /uL 1.5-8. 0 Not Available [facility] (Lab) [address] [place], [address], 02/26/2024 12:41:04 02/26/20 24 02/26/2024 CBC/C OMPLE TE BLD COUNT W/DIF F lymphocytes, absolute count 1.51 x10'3 /uL 1.07-3 .43 Not Available [facility] (Lab) [address] [place], [address], 02/26/2024 12:41:04 02/26/20 24 02/26/2024 CBC/C OMPLE TE BLD COUNT W/DIF F monocytes, absolute count 0.49 x10'3 /uL 0.29-0 .99 Not Available [facility] (Lab) [address] [place], [address], 02/26/2024 12:41:04 02/26/20 24 02/26/2024 CBC/C OMPLE TE BLD COUNT W/DIF F eosinophils, absolute count 0.21 x10'3 /uL 0.02-0 .53 Not Available [facility] (Lab) [address] [place], [address], 02/26/2024 12:41:04 02/26/20 24 02/26/2024 CBC/C OMPLE TE BLD COUNT W/DIF F basophils, absolute count 0.04 x10'3 /uL 0.01-0 .08 Not Available [facility] (Lab) [address] [place], [address], 02/26/2024 12:41:04 02/26/20 24 02/26/2024 CBC/C OMPLE TE BLD COUNT W/DIF F immature granulocytes ,absolute 0.02 x10'3 /uL 0.00-0 .05 Not Available [facility] (Lab) [address] [place], [address], 02/26/2024 12:41:04 02/26/20 24 02/26/2024 CBC/C OMPLE TE BLD COUNT W/DIF F nucleated red blood cells 0.0 % -0 Not Available [facility] (Lab) [address] [place], [address], 02/26/2024 12:41:04 02/26/20 24 02/26/2024 CBC/C OMPLE TE BLD COUNT W/DIF F NRBC# 0.00 x10'3 /uL Not Available [facility] (Lab) [address] [place], [address], 02/26/2024 12:41:04 02/26/20 24 02/26/2024 TSH W/REF CORNELIO FT4 TSH with reflex free T4 <0.015 uIU/m L 0.465- 4.680 low Not Available [facility] (Lab) [address] [place], [address], 02/26/2024 13:46:13 02/26/20 24 02/26/2024 LIPID PANEL cholesterol 113 mg/dL 140-19 9 low NIH REFUGIO NSUS RECOM MENDA TION FOR MUSA STERO L: ADULT CHILD LOW RISK: <200 <170 BORDE RLINE : <200- 239 ----- HIGH RISK: >240 >200 Not Available [facility] (Lab) [address] [place], [address], 02/26/2024 13:46:36 02/26/20 24 02/26/2024 LIPID PANEL triglyceride s 141 mg/dL 0-150 NIH REFUGIO NSUS REPOR T RECOM MENDA TION FOR TRIGL YCERI JAK: ADULT CHILD LOW RISK: <150 ----- BODER LINE: 150-1 99 ----- HIGH RISK: >200 ----- Not Available [facility] (Lab) [address] [place], [address], 02/26/2024 13:46:36 02/26/20 24 02/26/2024 LIPID PANEL HDL cholesterol 56 mg/dL 40- Not Available [facility] (Lab) [address] [place], [address], 02/26/2024 13:46:36 02/26/20 24 02/26/2024 LIPID PANEL LDL cholesterol, calculated 29 mg/dL 0-130 NIH REFUGIO NSUS REPOR T RECOM MENDA TIONS FOR LDL: ADULT CHILD LOW RISK <130 <110 (OPTI MAL LDL) <100 ----- BORDE RLINE : 130-1 59 ----- HIGH RISK: >160 >130 A TRIGL YCERI DE RESUL T >400 INVAL IDATE S THE CALCU LATIO N FOR LDL FRACT IONAT ION - THE LDL RESUL T WILL NOT BE REPOR ORIANA. Not Available [facility] (Lab) [address] [place], [address], 02/26/2024 13:46:36 02/26/20 24 02/26/2024 COMPR EHENS GUILLERMO METAB OLIC PANEL sodium 139 mmol/ L 137-14 5 Not Available [facility] (Lab) [address] [place], [address], 02/26/2024 13:46:52 02/26/20 24 02/26/2024 COMPR EHENS GUILLERMO METAB OLIC PANEL potassium 3.9 mmol/ L 3.5-5. 1 Not Available [facility] (Lab) [address] [place], [address], 02/26/2024 13:46:52 02/26/20 24 02/26/2024 COMPR EHENS GUILLERMO METAB OLIC PANEL chloride 107 mmol/ L 98-107 Not Available [facility] (Lab) [address] [place], [address], 02/26/2024 13:46:52 02/26/20 24 02/26/2024 COMPR EHENS GUILLERMO METAB OLIC PANEL carbon dioxide 26 mmol/ L 22-30 Not Available [facility] (Lab) [address] [place], [address], 02/26/2024 13:46:52 02/26/20 24 02/26/2024 COMPR EHENS GUILLERMO METAB OLIC PANEL anion gap 9.9 mmol/ L 14-22 low Not Available [facility] (Lab) [address] [place], [address], 02/26/2024 13:46:52 02/26/20 24 02/26/2024 COMPR EHENS GUILLERMO METAB OLIC PANEL glucose 119 mg/dL 70-99 high Not Available [facility] (Lab) [address] [place], [address], 02/26/2024 13:46:52 02/26/20 24 02/26/2024 COMPR EHENS GUILLERMO METAB OLIC PANEL BUN 21 mg/dL 8-19 high Not Available [facility] (Lab) [address] [place], [address], 02/26/2024 13:46:52 02/26/20 24 02/26/2024 COMPR EHENS GUILLERMO METAB OLIC PANEL creatinine 0.87 mg/dL 0.66-1 .25 Not Available [facility] (Lab) [address] [place], [address], 02/26/2024 13:46:52 02/26/20 24 02/26/2024 COMPR EHENS GUILLERMO METAB OLIC PANEL GFR >60 Refer ence Range : [place] ge GFR Healt hy Adult : >60 mL/mi n/1.7 3 m2 Chron ic Kidne y Disea se: 15-60 mL/mi n/1.7 3 m2 Kidne y Failu re: <15/m L/min /1.73 m2 www.n iddk. nih.g ov The MDRD study equat ion has not been valid ated in child gurpreet <18 years of age; pregn ant women ; the elder ly >85 years of age; or in some racia l or ethni c subgr oups, such as Hispa nics. Outsi de the valid ated mamta eters , estim ated GFR is less accur ate, requi ring clini sedrick judgm ent on a case- by-ca se basis . Clini sedrick inter preta tion for other races and ages must be made by the clini parish. The MDRD study equat ion has not been valid ated for the evalu ation of serum creat inine relat ed to nutri [place] l statu s or medic ation usage . For perso ns <18 years of age, a pedia tric GFR calcu lator is avail able on the [facility] websi te: https :[email or web address] pozo.[email or web address] rg/pr ofess ional s/kdo qi/gf r_cal culat or Not Available [facility] (Lab) [address] [place], [address], 02/26/2024 13:46:52 02/26/20 24 02/26/2024 COMPR EHENS GUILLERMO METAB OLIC PANEL alkaline phosphatase 80 U/L 38-126 Not Available [facility] (Lab) [address] [place], [address], 02/26/2024 13:46:52 02/26/20 24 02/26/2024 COMPR EHENS GUILLERMO METAB OLIC PANEL alanine aminotransfe rase 17 U/L 0-35 Not Available [facility] (Lab) [address] [place], [address], 02/26/2024 13:46:52 02/26/20 24 02/26/2024 COMPR EHENS GUILLERMO METAB OLIC PANEL aspartate aminotransfe rase 26 U/L 15-37 Not Available [facility] (Lab) [address] [place], [address], 02/26/2024 13:46:52 02/26/20 24 02/26/2024 COMPR EHENS GUILLERMO METAB OLIC PANEL bilirubin, total 0.90 mg/dL 0.20-1 .30 Not Available [facility] (Lab) [address] [place], [address], 02/26/2024 13:46:52 02/26/20 24 02/26/2024 COMPR EHENS GUILLERMO METAB OLIC PANEL calcium 9.5 mg/dL 8.4-10 .2 Not Available [facility] (Lab) [address] [place], [address], 02/26/2024 13:46:52 02/26/20 24 02/26/2024 COMPR EHENS GUILLERMO METAB OLIC PANEL total protein 7.0 g/dL 6.3-8. 2 Not Available [facility] (Lab) [address] [place], [address], 02/26/2024 13:46:52 02/26/20 24 02/26/2024 COMPR EHENS GUILLERMO METAB OLIC PANEL albumin 4.3 g/dL 3.0-4. 4 Not Available [facility] (Lab) [address] [place], [address], 02/26/2024 13:46:52 02/26/20 24 02/26/2024 COMPR EHENS GUILLERMO METAB OLIC PANEL globulin 2.7 g/dL 2.6-4. 2 Not Available [facility] (Lab) [address] [place], [address], 02/26/2024 13:46:52 02/26/20 24 02/26/2024 COMPR EHENS GUILLERMO METAB OLIC PANEL A/G ratio 1.6 ratio 1.0-2. 0 Not Available [facility] (Lab) [address] [place], [address], 02/26/2024 13:46:52 02/26/20 24 02/26/2024 HEMOG LOBIN A1C HA1C 7.0 % 4.0-6. 0 high Diabe ellen Scree parminder Crite danis: <5.7% Consi stent with absen ce of diabe ellen 5.7-6 .4% Consi stent with incre ased risk for diabe ellen (pred iabet es) >OR=6 .5% Consi stent with diabe ellen REFER ENCE: Diabe ellen Care 2016, 39(Corey ppl.1 ):s13 -s22 Not Available [facility] (Lab) [address] [place], [address], 02/26/2024 13:52:43 02/26/20 24 02/26/2024 MICRO ALBUM IN RANDO M URINE microalbumin , urine 13.0 mg/L 0.0-16 .6 Not Available [facility] (Lab) [address] [place], [address], 02/26/2024 15:25:40 02/26/20 24 02/26/2024 VITAM IN D 25-HY DROXY [id number] 57.8 NG/mL 30-100 Vitam in D Statu s: Defic ient: <20 ng/mL Insuf ficie nt: 20-29 ng/mL Suffi cient : 30-10 0 ng/mL Not Available [facility] (Lab) [address] [place], [address], 02/26/2024 15:28:33 02/26/20 24 02/26/2024 T4 FREE free T4 2.27 NG/dL 0.78-2 .19 high Not Available [facility] (Lab) [address] [place], [address], 02/26/2024 20:03:56 05/28/20 24 05/28/2024 LIPID PANEL cholesterol 141 mg/dL 140-19 9 NIH REFUGIO NSUS RECOM MENDA TION FOR MUSA STERO L: ADULT CHILD LOW RISK: <200 <170 BORDE RLINE : <200- 239 ----- HIGH RISK: >240 >200 Not Available [facility] (Lab) [address] [place], [address], 05/28/2024 13:43:20 05/28/2005/28/2024 LIPID PANEL triglyceride s 214 mg/dL 0-150 high NIH REFUGIO NSUS REPOR T RECOM MENDA TION FOR TRIGL YCERI JAK: ADULT CHILD LOW RISK: <150 ----- BODER LINE: 150-1 99 ----- HIGH RISK: >200 ----- Not Available [facility] (Lab) [address] [place], [address], 05/28/2024 13:43:20 05/28/2005/28/2024 LIPID PANEL HDL cholesterol 57 mg/dL 40- Not Available [facility] (Lab) [address] [place], [address], 05/28/2024 13:43:20 05/28/2005/28/2024 LIPID PANEL LDL cholesterol, calculated 41 mg/dL 0-130 NIH REFUGIO NSUS REPOR T RECOM MENDA TIONS FOR LDL: ADULT CHILD LOW RISK <130 <110 (OPTI MAL LDL) <100 ----- BORDE RLINE : 130-1 59 ----- HIGH RISK: >160 >130 A TRIGL YCERI DE RESUL T >400 INVAL IDATE S THE CALCU LATIO N FOR LDL FRACT IONAT ION - THE LDL RESUL T WILL NOT BE REPOR ORIANA. Not Available [facility] (Lab) [address] [place], [address], 05/28/2024 13:43:20 05/28/2005/28/2024 COMPR EHENS GUILLERMO METAB OLIC PANEL sodium 137 mmol/ L 137-14 5 Not Available [facility] (Lab) [address] [place], [address], 05/28/2024 13:43:31 05/28/20 24 05/28/2024 COMPR EHENS GUILLERMO METAB OLIC PANEL potassium 3.8 mmol/ L 3.5-5. 1 Not Available [facility] (Lab) [address] [place], [address], 05/28/2024 13:43:31 05/28/20 24 05/28/2024 COMPR EHENS GUILLERMO METAB OLIC PANEL chloride 103 mmol/ L 98-107 Not Available [facility] (Lab) [address] [place], [address], 05/28/2024 13:43:31 05/28/20 24 05/28/2024 COMPR EHENS GUILLERMO METAB OLIC PANEL carbon dioxide 30 mmol/ L 22-30 Not Available [facility] (Lab) [address] [place], [address], 05/28/2024 13:43:31 05/28/20 24 05/28/2024 COMPR EHENS GUILLERMO METAB OLIC PANEL anion gap 7.8 mmol/ L 14-22 low Not Available [facility] (Lab) [address] [place], [address], 05/28/2024 13:43:31 05/28/20 24 05/28/2024 COMPR EHENS GUILLERMO METAB OLIC PANEL glucose 136 mg/dL 70-99 high Not Available [facility] (Lab) [address] [place], [address], 05/28/2024 13:43:31 05/28/20 24 05/28/2024 COMPR EHENS GUILLERMO METAB OLIC PANEL BUN 27 mg/dL 8-19 high Not Available [facility] (Lab) [address] [place], [address], 05/28/2024 13:43:31 05/28/20 24 05/28/2024 COMPR EHENS GUILLERMO METAB OLIC PANEL creatinine 0.99 mg/dL 0.66-1 .25 Not Available [facility] (Lab) [address] [place], [address], 05/28/2024 13:43:31 05/28/20 24 05/28/2024 COMPR EHENS GUILLERMO METAB OLIC PANEL GFR 53 Refer ence Range : [place] ge GFR Healt hy Adult : >60 mL/mi n/1.7 3 m2 Chron ic Kidne y Disea se: 15-60 mL/mi n/1.7 3 m2 Kidne y Failu re: <15/m L/min /1.73 m2 www.n iddk. nih.g ov The MDRD study equat ion has not been valid ated in child gurpreet <18 years of age; pregn ant women ; the elder ly >85 years of age; or in some racia l or ethni c subgr oups, such as Hispa nics. Outsi de the valid ated mamta eters , estim ated GFR is less accur ate, requi ring clini sedrick judgm ent on a case- by-ca se basis . Clini sedrick inter preta tion for other races and ages must be made by the clini parish. The MDRD study equat ion has not been valid ated for the evalu ation of serum creat inine relat ed to nutri [place] l statu s or medic ation usage . For perso ns <18 years of age, a pedia tric GFR calcu lator is avail able on the [facility] websi te: https :[email or web address] [email or web address] pozo.[email or web address] rg/pr ofess ional s/kdo qi/gf r_cal culat or Not Available [facility] (Lab) [address] [place], [address], 05/28/2024 13:43:31 05/28/20 24 05/28/2024 COMPR EHENS GUILLERMO METAB OLIC PANEL alkaline phosphatase 92 U/L 38-126 Not Available [facility] (Lab) [address] [place], [address], 05/28/2024 13:43:31 05/28/20 24 05/28/2024 COMPR EHENS GUILLERMO METAB OLIC PANEL alanine aminotransfe rase 14 U/L 0-35 Not Available [facility] (Lab) [address] [place], [address], 05/28/2024 13:43:31 05/28/20 24 05/28/2024 COMPR EHENS GUILLERMO METAB OLIC PANEL aspartate aminotransfe rase 22 U/L 15-37 Not Available [facility] (Lab) [address] [place], [address], 05/28/2024 13:43:31 05/28/20 24 05/28/2024 COMPR EHENS GUILLERMO METAB OLIC PANEL bilirubin, total 0.80 mg/dL 0.20-1 .30 Not Available [facility] (Lab) [address] [place], [address], 05/28/2024 13:43:31 05/28/20 24 05/28/2024 COMPR EHENS GUILLERMO METAB OLIC PANEL calcium 9.4 mg/dL 8.4-10 .2 Not Available [facility] (Lab) [address] [place], [address], 05/28/2024 13:43:31 05/28/20 24 05/28/2024 COMPR EHENS GUILLERMO METAB OLIC PANEL total protein 7.2 g/dL 6.3-8. 2 Not Available [facility] (Lab) [address] [place], [address], 05/28/2024 13:43:31 05/28/20 24 05/28/2024 COMPR EHENS GUILLERMO METAB OLIC PANEL albumin 4.3 g/dL 3.0-4. 4 Not Available [facility] (Lab) [address] [place], [address], 05/28/2024 13:43:31 05/28/20 24 05/28/2024 COMPR EHENS GUILLERMO METAB OLIC PANEL globulin 2.9 g/dL 2.6-4. 2 Not Available [facility] (Lab) [address] [place], [address], 05/28/2024 13:43:31 05/28/20 24 05/28/2024 COMPR EHENS GUILLERMO METAB OLIC PANEL A/G ratio 1.5 ratio 1.0-2. 0 Not Available [facility] (Lab) [address] [place], [address], 05/28/2024 13:43:31 05/28/20 24 05/28/2024 TSH W/REF CORNELIO FT4 TSH with reflex free T4 19.500 uIU/m L 0.465- 4.680 high Not Available [facility] (Lab) [address] [place], [address], 05/28/2024 13:49:22 05/28/20 24 05/28/2024 MICRO ALBUM IN RANDO M URINE microalbumin , urine 74.3 mg/L 0.0-16 .6 high Not Available [facility] (Lab) [address] [place], [address], 05/28/2024 13:53:05 05/28/20 24 05/28/2024 VITAM IN D 25-HY DROXY [id number] 25.9 NG/mL 30-100 low Vitam in D Statu s: Defic ient: <20 ng/mL Insuf ficie nt: 20-29 ng/mL Suffi cient : 30-10 0 ng/mL Not Available [facility] (Lab) [address] [place], [address], 05/28/2024 13:53:16 05/28/20 24 05/28/2024 CBC/C OMPLE TE BLD COUNT W/DIF F white blood cells 8.5 x10'3 /uL 4.2-10 .8 Not Available [facility] (Lab) [address] [place], [address], 05/28/2024 13:58:06 05/28/20 24 05/28/2024 CBC/C OMPLE TE BLD COUNT W/DIF F red blood cells 4.15 x10'6 /uL 3.80-5 .20 Not Available [facility] (Lab) [address] [place], [address], 05/28/2024 13:58:06 05/28/20 24 05/28/2024 CBC/C OMPLE TE BLD COUNT W/DIF F hemoglobin 12.4 g/dL 12.0-1 5.6 Not Available [facility] (Lab) [address] [place], [address], 05/28/2024 13:58:06 05/28/2005/28/2024 CBC/C OMPLE TE BLD COUNT W/DIF F hematocrit 39.1 % 35.7-4 5.7 Not Available [facility] (Lab) [address] [place], [address], 05/28/2024 13:58:06 05/28/20 24 05/28/2024 CBC/C OMPLE TE BLD COUNT W/DIF F mean red cell volume 94.2 fL 82.0-9 9.0 Not Available [facility] (Lab) [address] [place], [address], 05/28/2024 13:58:06 05/28/20 24 05/28/2024 CBC/C OMPLE TE BLD COUNT W/DIF F mean red cell hemoglobin 29.9 pg 27.0-3 3.0 Not Available [facility] (Lab) [address] [place], [address], 05/28/2024 13:58:06 05/28/20 24 05/28/2024 CBC/C OMPLE TE BLD COUNT W/DIF F mean RBC HGB concentratio n 31.7 g/dL 31.0-3 6.0 Not Available [facility] (Lab) [address] [place], [address], 05/28/2024 13:58:06 05/28/2005/28/2024 CBC/C OMPLE TE BLD COUNT W/DIF F red cell distribution width 14.1 % 11.8-1 5.5 Not Available [facility] (Lab) [address] [place], [address], 05/28/2024 13:58:06 05/28/2005/28/2024 CBC/C OMPLE TE BLD COUNT W/DIF F platelets 175 x10'3 /uL 150-40 0 Not Available [facility] (Lab) [address] [place], [address], 05/28/2024 13:58:06 05/28/2005/28/2024 CBC/C OMPLE TE BLD COUNT W/DIF F mean platelet volume 10.9 fL 9.0-12 .4 Not Available [facility] (Lab) [address] [place], [address], 05/28/2024 13:58:06 05/28/2005/28/2024 CBC/C OMPLE TE BLD COUNT W/DIF F neutrophils 75.8 % 39.0-7 2.0 high Not Available [facility] (Lab) [address] [place], [address], 05/28/2024 13:58:06 05/28/2005/28/2024 CBC/C OMPLE TE BLD COUNT W/DIF F lymphocytes 14.8 % 16.0-4 7.0 low Not Available [facility] (Lab) [address] [place], [address], 05/28/2024 13:58:06 05/28/2005/28/2024 CBC/C OMPLE TE BLD COUNT W/DIF F monocytes 5.9 % 5.0-12 .0 Not Available [facility] (Lab) [address] [place], [address], 05/28/2024 13:58:06 05/28/20 24 05/28/2024 CBC/C OMPLE TE BLD COUNT W/DIF F eosinophils 1.6 % 1.0-7. 0 Not Available [facility] (Lab) [address] [place], [address], 05/28/2024 13:58:06 05/28/20 24 05/28/2024 CBC/C OMPLE TE BLD COUNT W/DIF F basophils 0.7 % 0.0-2. 0 Not Available [facility] (Lab) [address] [place], [address], 05/28/2024 13:58:06 05/28/20 24 05/28/2024 CBC/C OMPLE TE BLD COUNT W/DIF F immature granulocytes 1.2 % 0.00-0 .50 high Not Available [facility] (Lab) [address] [place], [address], 05/28/2024 13:58:06 05/28/20 24 05/28/2024 CBC/C OMPLE TE BLD COUNT W/DIF F neutrophils, absolute count 6.46 x10'3 /uL 1.5-8. 0 Not Available [facility] (Lab) [address] [place], [address], 05/28/2024 13:58:06 05/28/20 24 05/28/2024 CBC/C OMPLE TE BLD COUNT W/DIF F lymphocytes, absolute count 1.26 x10'3 /uL 1.07-3 .43 Not Available [facility] (Lab) [address] [place], [address], 05/28/2024 13:58:06 05/28/20 24 05/28/2024 CBC/C OMPLE TE BLD COUNT W/DIF F monocytes, absolute count 0.50 x10'3 /uL 0.29-0 .99 Not Available [facility] (Lab) [address] [place], [address], 05/28/2024 13:58:06 05/28/20 24 05/28/2024 CBC/C OMPLE TE BLD COUNT W/DIF F eosinophils, absolute count 0.14 x10'3 /uL 0.02-0 .53 Not Available [facility] (Lab) [address] [place], [address], 05/28/2024 13:58:06 05/28/20 24 05/28/2024 CBC/C OMPLE TE BLD COUNT W/DIF F basophils, absolute count 0.06 x10'3 /uL 0.01-0 .08 Not Available [facility] (Lab) [address] [place], [address], 05/28/2024 13:58:06 05/28/20 24 05/28/2024 CBC/C OMPLE TE BLD COUNT W/DIF F immature granulocytes ,absolute 0.10 x10'3 /uL 0.00-0 .05 high Not Available [facility] (Lab) [address] [place], [address], 05/28/2024 13:58:06 05/28/20 24 05/28/2024 CBC/C OMPLE TE BLD COUNT W/DIF F nucleated red blood cells 0.0 % -0 Not Available [facility] (Lab) [address] [place], [address], 05/28/2024 13:58:06 05/28/20 24 05/28/2024 CBC/C OMPLE TE BLD COUNT W/DIF F NRBC# 0.00 x10'3 /uL Not Available [facility] (Lab) [address] [place], [address], 05/28/2024 13:58:06 05/28/20 24 05/28/2024 T4 FREE free T4 0.65 NG/dL 0.78-2 .19 low Not Available [facility] (Lab) [address], [place], [address], 05/28/2024 14:39:53 05/28/2006/02/2024 HA1C, SEND- OUT TO [facility] hemoglobin A1C 7.2 % 4.8-5. 6 high . . Predi abete s: 5.7 - 6.4 Diabe ellen: >6.4 Glyce lila contr ol for adult s with diabe ellen: <7.0 Perfo rmed at: - [facility] [address] [facility], [place] [id number] Lab Direc tor: Ramon alamo PhD, Phone : [phone] Not Available [facility] (Lab) [address] [place], [address], 06/02/2024 05:10:13 12/10/19 24 12/10/2023 XR, chest No observ ation record ed. [address], [place], [address], 03/30/2024 16:18:06 12/11/19 24 12/10/2023 CT, abdom en + pelvi s, w/o contr ast No observ ation record ed. [address], [place], [address], 03/30/2024 16:19:27 12/26/19 24 12/25/2023 , echoc ardio gram No observ ation record ed. [email or web address] [facility] [address], [place], [address], 12/26/2023 21:05:35 12/26/19 24 12/25/2023 , echoc ardio gram No observ ation record ed. [address] [facility] [address], [place], [address], 03/31/2024 11:43:37 12/26/19 24 12/25/2023 arter ial study , lower extre mity, compl ete No observ ation record ed. [email or web address] [facility] [address], [place], [address], 12/26/2023 21:04:15 12/26/19 24 12/26/2023 US, duple x, venou s, lower extre mity No observ ation record ed. [email or web address] [address], [place], [address], 03/31/2024 11:44:30 01/07/20 24 12/29/2023 savage r monit or No observ ation record ed. [email or web address] [address], [place], [address], 03/31/2024 12:01:11 01/07/20 24 01/07/2024 imagi ng/di agnos tic resul t No observ ation record ed. [email or web address] [facility] [address], [place], [address], 01/11/2024 12:46:47 Result Notes None recorded. Problems Name Problem SNOMED Code Status Onset Date Resolution Date Notes Provider Name and Address Organization Details Recorded Time Vicker toe 624221206 Active 2020 Not Available [facility] 3 22:20:53 Acute sinusitis 56006035 Active 2021 Not Available [facility] 3 22:20:53 Increased frequency of urination 120213727 Active 2021 Not Available [facility] 3 22:20:53 Recurrent urinary tract infection 181271959 Active 2021 Not Available [facility] 3 22:20:53 Osteoarthr itis of knee 143043801 Active Not Available [facility] 3 22:20:53 Anemia 689787359 Active 2021 Not Available [facility] 3 22:20:53 Pain in right foot 1161336809378 07 Active 2021 Not Available [facility] 3 22:20:53 Vitamin D deficiency 69366840 Active 2021 Not Available [facility] 3 22:20:53 Acute urinary tract infection 770224679 Active 2022 Not Available [facility] 3 22:20:53 Cough 12975756 Active 2021 Not Available [facility] 3 22:20:53 Blister of toe without infection 98509311 Active Not Available [facility] 3 22:20:53 Tinea pedis 3012869 Active 2021 Not Available [facility] 3 22:20:53 Diabetes mellitus 77055203 Active 2020 Not Available [facility] 3 22:20:53 Neck pain 34835154 Active 2021 Not Available [facility] 3 22:20:53 Upper respirator y infection 01996524 Active 2022 Not Available [facility] 3 22:20:53 Hypothyroi dism 77315163 Active 2022 Not Available [facility] 3 22:20:53 Essential hypertensi on 81629278 Active 2022 Not Available [facility] 3 22:20:53 Hyperlipid emia 38327987 Active 2022 Not Available [facility] 3 22:20:53 Atrial fibrillati on 10828978 Active 2022 Not Available [facility] 3 22:20:53 Anxiety 49377625 Active 2022 Not Available [facility] 3 22:20:53 Edema of lower extremity 656172787 Active 2022 Not Available [facility] 3 22:20:53 Intramural calcificat ion of gallbladde r 975228827 Active 2022 Not Available [facility] 3 22:20:53 Type 2 diabetes mellitus without complicati on 105112663 Active 2022 Not Available [facility] 3 22:20:53 Cellulitis of right lower limb 1623336532979 9104 Active 2022 Not Available [facility] 3 22:20:53 Cellulitis of lower limb 629594363 Active 2022 Not Available [facility] 3 22:20:53 Iron deficiency 02687150 Active 2022 Not Available [facility] 3 22:20:53 Cobalamin deficiency 546039413 Active 2022 Not Available [facility] 3 22:20:53 Pain of bilateral knee joints 1669074748818 04 Active 2022 Not Available [facility] 3 22:20:53 Hammer toe 208687029 Active 2022 Not Available [facility] 3 22:20:53 Dystrophia unguium 89132818 Active 2022 Heron Harley DPM [address], [place], [address] , [facility] 3 17:34:30 Cut of great toe 168422587 Active 2022 Heron Harley DPM [address], [address], [place], [address] , [facility] 3 17:34:56 Chronic kidney disease 476282613 Active 2023 BINA Brand, [place] [facility] 4 15:46:27 Urinary symptoms 818914114 Active 2023 BINA Brand, [place] [facility] 4 15:34:49 Unsteady when walking 00449310 Active 2024 Sonya vigil MD [address], [address], [place], [address] , [facility] 5 17:38:29 Problem Notes None recorded. Procedures Surgical History Date Name Laterality Status Provider Name and Address Organization Details Recorded Time 5 Transitional_Ca re_Management completed Sonya Jackson MD [address], [address], [place], [address], [place] [facility] 09/22/2024 14:37:41 4 Medicare Wellness CPT Code, subsequent completed John Hinojosa LPN [place] - [facility] 02/23/2024 19:08:17 4 Advanced Care Planning completed John Hinojosa LPN [place] [facility] 02/26/2024 12:51:32 3 Nail Debridement completed Heron Harley DPM [address], [address], [place], [address], [place] [facility] 08/11/2023 17:34:12 Hysterectomy, Partial completed Daniella Liang Lenny [place] [facility] 11/27/2023 10:48:57 Imaging Results Imaging Date Name Status LastModified by Organization Details LastModified Time 12/10/2023 XR, chest completed [address], [place], [address], 03/30/2024 16:18:06 12/10/2023 CT, abdomen + pelvis, w/o contrast completed [address], [place], [address], 03/30/2024 16:19:27 12/25/2023 US, echocardiogram completed [email or web address] [address], [place], [address], 12/26/2023 21:05:35 12/25/2023 US, echocardiogram completed [email or web address] [facility] [address], [place], [address], 03/31/2024 11:43:37 12/25/2023 arterial study, lower extremity, complete completed [email or web address] [facility] [address], [place], [address], 12/26/2023 21:04:15 12/26/2023 US, duplex, venous, lower extremity completed [email or web address] [address], [place], [address], 03/31/2024 11:44:30 12/29/2023 holter monitor completed [email or web address] [address], [place], [address], 03/31/2024 12:01:11 01/07/2024 imaging/diagnostic result active [email or web address] [facility] [address], [place], [address], 01/11/2024 12:46:47 Procedure Notes None recorded. Medical Equipment None Reported. Allergies No known drug allergies Medications Name Sig Start Date Stop Date Status Note LastModified by Organization Details LastModified Time metformin 500 mg tablet Take 1 tablet every day by oral route for 30 days. 09/21 completed Not Available Not Available Not Available ampicilli n 500 mg capsule TAKE 1 CAPSULE BY MOUTH THREE TIMES DAILY UNTIL GONE 12/18 completed Not Available Not Available Not Available lisinopri l 20 mg tablet Take 1 tablet twice a day by oral route. 11/26 completed Not Available Not Available Not Available Synthroid 100 mcg tablet Take 1 tablet every day by oral route for 90 days. 2024 active Not Available Not Available Not Avai lable cyanocoba tyler (vit B-12) 1,000 mcg tablet Take 1 tablet every day by oral route. 04/26 completed Not Available Not Available Not Available potassium chloride ER 10 mEq tablet,ex tended release TAKE 1 TABLET BY MOUTH ONCE DAILY active Not Available Not Available No t Available Klor-Con 20 mEq oral packet DISSOLVE 1 PACKET IN WATER & DRINK ONCE DAILY 04/29 completed Not Available Not Available Not Available acetamino phen 300 mg-codein e 30 mg tablet TAKE 1 TABLET BY MOUTH EVERY 4 TO 6 HOURS NEEDED FOR PAIN 12/18 completed Not Available Not Available Not Available ciproflox acin 500 mg tablet TAKE 1 TABLET BY MOUTH EVERY 12 HOURS FOR 7 DAYS 09/21 completed Not Available Not Available Not Available tramadol 50 mg tablet TAKE 1 TABLET BY MOUTH EVERY 6 HOURS NEEDED NEEDED FOR PAIN 04/26 completed Not Available Not Available Not Available simvastat in 40 mg tablet TAKE 1 TABLET BY MOUTH ONCE DAILY 12/03 completed Not Available Not Available Not Available potassium chloride 20 mEq/15 mL oral liquid 09/21 completed Not Available Not Available Not Available amoxicill in 875 mg tablet TAKE 1 TABLET BY MOUTH EVERY 12 HOURS UNTIL GONE 04/26 completed Not Available Not Available Not Available cyanocoba tyler (vit B-12) 500 mcg tablet Take 1 tablet by mouth once daily 05/27 completed Not Available Not Available Not Available dexametha sone 1 mg tablet TAKE 2 TABLETS BY MOUTH TWICE DAILY FOR FIRST 2 DAYS THEN TAKE 1 TWICE DAILY FOR DAYS 3-4, THEN 1 TAB DAILY FOR DAYS 5-6 04/26 completed Not Available Not Available Not Available doxycycli ne monohydra te 100 mg capsule Take 1 capsule twice a day by oral route for 7 days. active Not Available Not Available No t Available cephalexi n 500 mg capsule Take 1 capsule 4 times a day by oral route for 7 days. 12/23 completed Not Available Not Available Not Available simvastat in 20 mg tablet TAKE 1 TABLET BY MOUTH ONCE DAILY active Not Available Not Available No t Available ferrous sulfate 325 mg (65 mg iron) tablet Take 1 tablet every day by oral route. 11/26 completed Not Available Not Available Not Available levothyro xine 125 mcg tablet Take 1 tablet every day by oral route before meal(s). 09/21 completed Not Available Not Available Not Available levothyro xine 150 mcg tablet TAKE 1 TABLET BY MOUTH ONCE DAILY 03/12 completed Decrease d dose to 100mcg Not Available Not Available Not Available losartan 25 mg tablet TAKE 1 TABLET BY MOUTH ONCE DAILY active Not Available Not Available No t Available docusate sodium 100 mg capsule TAKE 1 CAPSULE BY MOUTH TWICE DAILY 11/26 completed Not Available Not Available Not Available lisinopri l 20 mg-hydroc hlorothia zide 25 mg tablet TAKE 1 TABLET BY MOUTH TWICE DAILY active Not Available Not Available No t Available furosemid e 20 mg tablet Take 1 tablet every day by oral route. 11/26 completed Not Available Not Available Not Available metoprolo l succinate ER 25 mg tablet,ex tended release 24 hr TAKE 1 TABLET BY MOUTH ONCE DAILY 09/21 completed Not Available Not Available Not Available ergocalci ferol (vitamin D2) 1,250 mcg (50,000 unit) capsule Take 1 capsule by mouth once a week 09/21 completed Not Available Not Available Not Available levofloxa terrence 500 mg tablet TAKE 1 TABLET BY MOUTH EVERY 24 HOURS FOR 5 DAYS 12/18 completed Not Available Not Available Not Available methylpre dnisolone 4 mg tablets in a dose pack Take 1 tablet by oral route as directed . 04/26 completed Not Available Not Available Not Available albuterol sulfate HFA 90 mcg/actua tion aerosol inhaler INHALE 2 PUFFS BY MOUTH EVERY 4 HOURS NEEDED active Not Available Not Available No t Available ketoconaz ole 2 % topical cream APPLY TO THE AFFECTED AREA(S) BY TOPICAL ROUTE ONCE DAILY 02/25 completed Not Available Not Available Not Available cefdinir 300 mg capsule Take 1 capsule every 12 hours by oral route for 7 days. active Not Available Not Available No t Available fluticaso ne propionat e 50 mcg/actua tion nasal spray,[facility] [place] 1 spray every day by intranas al route. 11/26 completed Not Available Not Available Not Available metformin ER 500 mg tablet,ex tended release 24 hr Take 1 tablet every day by oral route. 05/03 completed Not Available Not Available Not Available calcitrio l 0.25 mcg capsule TAKE 1 CAPSULE BY MOUTH ONCE DAILY active Not Available Not Available No t Available levothyro xine 112 mcg tablet Take 1 tablet every day by oral route. 10/22 completed Not Available Not Available Not Available amoxicill in 875 mg-potass ium clavulana te 125 mg tablet Take 1 tablet every 12 hours by oral route for 7 days. active Not Available Not Available No t Available Cartia XT 180 mg capsule,e xtended release TAKE 1 CAPSULE BY MOUTH ONCE DAILY 12/18 completed Not Available Not Available Not Available ezetimibe 10 mg tablet TAKE 1 TABLET BY MOUTH ONCE DAILY 11/26 completed Not Available Not Available Not Available rosuvasta tin 40 mg tablet Take 1 tablet by mouth once daily active Not Available Not Available No t Available escitalop charmaine 5 mg tablet TAKE 1 TABLET BY MOUTH ONCE DAILY 12/18 completed Not Available Not Available Not Available nitrofura ntoin monohydra te/macroc rystals 100 mg capsule TAKE 1 CAPSULE BY MOUTH TWICE DAILY 01/31 completed Not Available Not Available Not Available cholecalc iferol (vitamin D3) 1,250 mcg (50,000 unit) capsule TAKE 1 CAPSULE BY MOUTH ONCE A WEEK 09/21 completed Not Available Not Available Not Available Xarelto 15 mg tablet TAKE 1 TABLET BY MOUTH ONCE DAILY 12/18 completed Not Available Not Available Not Available Xarelto 20 mg tablet TAKE 1 TABLET BY MOUTH ONCE DAILY AT NIGHT active Not Available Not Available No t Available Vitals Date Recorded Body height Body mass index (BMI) Body weight Heart rate Respiratory rate Oxygen saturation Oxygen saturation in Arterial blood by Pulse oximetry Systolic blood pressure Diastolic blood pressure Provider Name and Address Organization Details Last Updated DateTime 3 165.1 cm 33.3 kg/m2 42430.4 7 g 84 /min 14 /min 98 % 98 % 125 mm[Hg] 71 mm[Hg] Saira Avalos [employer] [facility] [employer] 3 16:42:05 Date Recorded Body height Body mass index (BMI) Body weight Body temperature Heart rate Systolic blood pressure Diastolic blood pressure Provider Name and Address Organization Details Last Updated DateTime 4 165.1 cm 33.8 kg/m2 89242.2 5 g 97.1 [degF] 78 /min 136 mm[Hg] 84 mm[Hg] PARVIZ Mark [employer] [facility] [employer] 4 10:50:39 Date Recorded Body height Body mass index (BMI) Body weight Body temperature Systolic blood pressure Diastolic blood pressure Provider Name and Address Organization Details Last Updated DateTime 4 165.1 cm 32.3 kg/m2 88039.9 2 g 97.6 [degF] 130 mm[Hg] 70 mm[Hg] Daniella Liang Lenny [employer] [facility] [facility] 4 11:18:34 Date Recorded Pain severity - 0-10 verbal numeric rating [Score] - Reported Provider Name and Address Organization Details Last Updated DateTime 02/26/2024 8 John Hinojosa LPN [facility] [employer] [facility] 02/26/2024 11:55:28 Date Recorded Body height Body mass index (BMI) Body weight Body temperature Heart rate Oxygen saturation Oxygen saturation in Arterial blood by Pulse oximetry Systolic blood pressure Diastolic blood pressure Provider Name and Address Organization Details Last Updated DateTime 4 165.1 cm 31.8 kg/m2 28718.1 4 g 98.5 [degF] 93 /min 95 % 95 % 136 mm[Hg] 64 mm[Hg] Meri Gu MA [facility] [employer] [facility] 4 11:38:58 Date Recorded Body height Body temperature Heart rate Oxygen saturation Oxygen saturation in Arterial blood by Pulse oximetry Pain severity - 0-10 verbal numeric rating [Score] - Reported Provider Name and Address Organization Details Last Updated DateTime 5 165.1 cm 98.05 [degF] 79 /min 98 % 98 % 8 Meri Gu MA [facility] [employer] [facility] [email or web address] 5 17:03:32 Social History Question Answer Notes LastModified by Organization Details LastModified Time Tobacco Smoking Status Never Smoker Not Available [facility] 11/13/2022 14:10:12 Do You Have An Advance Directive? No Information Provided [email or web address] Information not available 02/26/2024 What Is Your Level Of Alcohol Consumption? Occasional MIGRATION.925 [id number] Information not available 11/13/2022 Are You Blind Or Do You Have Difficulty Seeing? No MIGRATION.031 [id number] Information not available 11/13/2022 Is Blood Transfusion Acceptable In An Emergency? Yes [email or web address] Information not available 02/26/2024 What Is Your Level Of Caffeine Consumption? Moderate MIGRATION.663 [id number] Information not available 11/13/2022 How Much Tobacco Do You Chew? None MIGRATION.995 [id number] Information not available 11/13/2022 In The 14 Days Before Symptom Onset, Have You Had Close Contact With A Laboratory-conf irmed COVID-19 While That Case Was Ill? No MIGRATION.245 [id number] Information not available 11/13/2022 In The 14 Days Before Symptom Onset, Have You Had Close Contact With A Person Who Is Under Investigation For COVID-19 While That Person Was Ill? No MIGRATION.409 [id number] Information not available 11/13/2022 Are You Currently Employed? No Information not available 02/26/2024 Are You Deaf Or Do You Have Serious Difficulty Hearing? No MIGRATION.142 [id number] Information not available 11/13/2022 What Type Of Diet Are You Following? REGULAR MIGRATION.392 [id number] Information not available 11/13/2022 Which Illicit Or Recreational Drugs Have You Used? None MIGRATION.326 [id number] Information not available 11/13/2022 Do You Or Have You Ever Used E-cigarettes Or Vape? Never Used Electronic Cigarettes MIGRATION.514 [id number] Information not available 11/13/2022 What Is The Highest Grade Or Level Of School You Have Completed Or The Highest Degree You Have Received? [id number] MIGRATION.120 [id number] Information not available 11/13/2022 What Is Your Occupation? Retired MIGRATION.494 [id number] Information not available 11/13/2022 How Many Days Of Moderate To Strenuous Exercise, Like A Brisk Walk, Did You Do In The Last 7 Days? 0 Information not available 02/26/2024 Have There Been Any Changes To Your Family Or Social Situation? No MIGRATION.036 [id number] Information not available 11/13/2022 What Is The Fluoride Status Of Your Home? Unknown MIGRATION.341 [id number] Information not available 11/13/2022 Are There Any Guns Present In Your Home? No MIGRATION.436 [id number] Information not available 11/13/2022 Do You Use Insect Repellent Routinely? No MIGRATION.668 [id number] Information not available 11/13/2022 Where Do You Live? SingleLevelHouse MIGRATION.177 [id number] Information not available 11/13/2022 Presence Of Domestic Violence No [email or web address] Information not available 02/26/2024 Guns Present In The Home? No [email or web address] Information not available 02/26/2024 Are You Able To Care For Yourself? Yes [email or web address] Information not available 02/26/2024 Are You Blind Or Do Yo Have Difficulty Seeing? No [email or web address] Information not available 02/26/2024 Are You Deaf Or Do You Have Serious Difficulty Hearing? No [email or web address] Information not available 02/26/2024 General Stress Level? High Information not available 02/26/2024 Live Alone Of With Others? With Others Information not available 02/26/2024 Do You Have A Medical Power Of Edge Trimmer? No MIGRATION.803 [id number] Information not available 11/13/2022 What Was The Date Of Your Most Recent Tobacco Screening? 09/21/2024 Information not available 09/21/2024 How Many Children Do You Have? 5 Information not available 05/27/2024 Have You Ever Been Counseled For Unhealthy Alcohol Use? No [email or web address] Information not available 02/26/2024 Do You Have Any Pets? No [email or web address] Information not available 02/26/2024 What Is Your Relationship Status? MIGRATION.769 [id number] Information not available 11/13/2022 Do You Use Your Seat Belt Or Car Seat Routinely? Yes MIGRATION.203 [id number] Information not available 11/13/2022 Do You Have Smoke And Carbon Monoxide Detectors In Your Home? Yes MIGRATION.792 [id number] Information not available 11/13/2022 Are You Passively Exposed To Smoke? No MIGRATION.486 [id number] Information not available 11/13/2022 Do You Or Have You Ever Used Smokeless Tobacco? Never Used Smokeless Tobacco MIGRATION.963 [id number] Information not available 11/13/2022 Are There Any Smokers In Your House? No MIGRATION.696 [id number] Information not available 11/13/2022 What Types Of Sporting Activities Do You Participate In? None Information not available 02/26/2024 Do You Feel Stressed (tense, Restless, Nervous, Or Anxious, Or Unable To Sleep At Night)? [id number] [email or web address] Information not available 02/26/2024 Do You Use Any Illicit Or Recreational Drugs? No MIGRATION.183 [id number] Information not available 11/13/2022 Do You Use Sunscreen Routinely? No MIGRATION.168 [id number] Information not available 11/13/2022 Has Tobacco Cessation Counseling Been Provided? No N/a Information not available 11/27/2023 Have You Recently Traveled Abroad? No MIGRATION.039 [id number] Information not available 11/13/2022 Do You Have Any Dietary Restrictions? No MIGRATION.418 [id number] Information not available 11/13/2022 Do You Or Have You Ever Used Any Other Forms Of Tobacco Or Nicotine? No MIGRATION.362 [id number] Information not available 11/13/2022 Sex: Unknown Functional Status Question Answer Note LastModified by Organizat ion Details LastModified Time Do you have difficulty walking or climbing stairs? Yes Uses cane [email or web address] Information not available 02/26/2024 Do you have transportation difficulties? No MIGRATION.[id number] Information not available 11/13/2022 Are you able to walk? YESASSIST cane or walker Information not available 02/26/2024 Do you have difficulty doing errands alone? No MIGRATION.[id number] Information not available 11/13/2022 Are you able to care for yourself? Yes MIGRATION.[id number] Information not available 11/13/2022 Do you have difficulty dressing or bathing? No MIGRATION.[id number] Information not available 11/13/2022 What is your exercise level? None MIGRATION.[id number] Information not available 11/13/2022 Mental Status Question Answer Note LastModified by Organizat ion Details LastModified Time Do you have difficulty concentrating, remembering or making decisions? No MIGRATION.[id number] 6 Information not available 11/13/2022 Family History Relationship Description Onset Age of this Age Resolved Age Notes LastModified by Organization Details LastModified Time Brother Malignant neoplastic disease MIGRATION.363 [id number] Not available 11/13/2022 14:10:22 Brother Heart disease MIGRATION.905 [id number] Not available 11/13/2022 14:10:22 Brother Depressive disorder MIGRATION.698 [id number] Not available 11/13/2022 14:10:22 Daughter Essential hypertension MIGRATION.392 [id number] Not available 11/13/2022 14:10:22 Mother Dermatomyosi tis MIGRATION.837 [id number] Not available 11/13/2022 14:10:22 Medical History Condition Response HIGH CHOLESTEROL / HYPERLIPIDEMIA Y HYPOTHYROIDISM Y URINARY/BLADDER/KIDNEY PROBLEMS Y ARTHRITIS USE OF BLOOD THINNERS Y DIABETES, TYPE Y HYPERTENSION Y ANXIETY DISORDER Y ANEMIA/BLOOD DISORDER Y ATRIAL FIBRILLATION Y Gynecological History Statement/Question Response How many live births 5 Date of Last Pap Current Control Method Hysterectom y Date of LMP Obstetrics History GPAL:G 6 P 5 0 1 5 Type Value Multiple Births 0 Full Term 5 Induced 0 Spontaneous 1 Premature 0 Living 5 Ectopics 0 Total 6 Immunizations Vaccine Type Date Status Note Provider Nam e and Address Organization Details Recorded Time COVID-19, mRNA, LNP-S, PF, 30 mcg/0.3 mL dose 06/28/2021 completed PARVIZ Mark, [facility] [employer] [facility] 10/21/2024 11:35:19 COVID-19, mRNA, LNP-S, PF, 30 mcg/0.3 mL dose 06/07/2021 completed PARVIZ Mark, [facility] [facility] 10/21/2024 11:35:19 Past Encounters Encounter ID Performer Location Encounter Start Date Encounter Closed Date Diagnosis/Indication Diagnosis SNOMED-CT Code Diagnosis ICD10 Code Diagnosis Note [id number] [facility] Internal [facility] [address] [place] [address] , [address] [address] 12/18/2020 00:00:00 12/18/2020 12:34:23 [id number] [facility] Internal Med [facility] [address] [place] [address] , [address] [address] 05/01/2021 00:00:00 05/01/2021 17:11:12 [id number] _ATHENA_M IGRATION_ DEFAULT_1 _1 , 05/11/2021 00:00:00 05/15/2021 12:05:21 [id number] [facility] Internal Med [facility] [address] [place], [place] [address]e., [address] [address] 08/23/2021 00:00:00 08/23/2021 19:58:23 [id number] [facility] Internal Med [address] , [address] [address] 12/25/2021 00:00:00 12/25/2021 13:23:13 [id number] [facility] [place] [address] [place] [address] 02/04/2022 00:00:00 02/05/2022 11:23:38 [id number] [facility] Internal Med [facility] [address] [place], [place] [address]ir[place], [address] [address] 02/12/2022 00:00:00 02/13/2022 09:55:19 [id number] [facility] Internal Med [facility] [address] [place] [address] [place] [address] 04/26/2022 00:00:00 04/26/2022 13:20:58 [id number] [facility] Internal Med [facility] [address] [place] [address] [place] [address] 05/03/2022 00:00:00 05/03/2022 14:55:57 [id number] [facility] Pod[facility] [place] [address] [place] [address] 05/06/2022 00:00:00 05/07/2022 14:55:42 [id number] [facility] Internal Med [facility] [address] [place] [address] [place] [address] 07/05/2022 00:00:00 07/05/2022 14:52:41 [id number] [facility] Internal Med [facility] [address] [place] [address] [place] [address] 07/12/2022 00:00:00 07/12/2022 13:32:54 [id number] [facility] Internal Med [facility] [address] [place] [address] [place] [address] 08/02/2022 00:00:00 08/02/2022 13:57:54 [id number] [facility] [place] [address] [place] [address] 08/05/2022 00:00:00 08/05/2022 12:12:11 [id number] [facility] Internal Med [facility] [address] [place] [address] [place] [address] 11/01/2022 00:00:00 11/01/2022 12:53:44 [id number] WALLACE Brink [facility] Internal Med [facility] [address] [place] [address] [place] [address] 01/31/2023 11:20:58 01/31/2023 11:47:00 Hypothyroidism 60819291 E03.9 on levothyrox ine Vitamin D deficiency 347 34605 E55.9 on supplement Essential hypertension 45454024 I10 on lisinopril /HCTZ- follows cardiology - Dr. Moran Hyperlipidemia 02608667 E78.5 on simvastati n Atrial fibrillation 4943 6004 I48.91 on xarelto, follows cardiology - Dr. Moran Anxiety 99300276 F41.9 never started lexapro, mood is now stablecall office if any change in mood or behavior Edema of l ower extremity 066215914 R60.0 follows cardiology , she is not wearing her compressio n stockings everyday- recommend she start doing this during the day, elevate feet when home sitting she had echo done 02/2022- EF 60%on lasix, potassium She did see Dr. Moran, he recommende d Venaseal- she continues to refuse this Mammogram declined 54603 5004 Z53.20 declines 2/2 age, risks explained including missed cancer and Colonoscopy declined 028 9314410 49499 Z53.20 declines 2/2 age, risks explained including missed cancer and Pain of bi lateral knee joints 5420275550 48677 M25.561 M25.562 Follows ortho- Dr. Muniz, has had cortisone injections in the past, may consider gel injections Intramural calcification of gallbladder 811941816 K82.8 Was referred to [facility] in summer 2019, she refuses referral, is not interested in going Also refuses repeat gallbladde r u/s, discussed increased risk of gallbladde r cancer with porcelain gallbladde r Call office if she changes her mind on referral 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 461181493 E11.9 she is not taking her metformin- encouraged her to do thisrechec k labsluke eye for DM eye examto podiatry for DM foot carerecomm end daily foot checks, daily lotion avoiding webspaces Anemia 261143066 D64.9 on iron and B12has order for fecal immunochem istry as she has refused cscope Hammer toe 265817775 M20 .41 podiatry as above Iron deficiency 70197176 E61.1 on iron supplement Cobalamin deficiency 190 081342 E53.8 on B12 supplement Recurrent urinary tract infection 468479245 N39.0 check UA, if has another infection, may need urology referral [id number] Brianne Ko, MARK-Britany [facility] Internal Med [place] [address] [place] [address] 07/07/2023 12:05:21 07/07/2023 12:30:45 Hypothyroidism 56428114 E03.9 on levothyrox ine Vitamin D deficiency 347 44732 E55.9 on supplement Essential hypertension 96942346 I10 on lisinopril /HCTZ- follows cardiology - Dr. Moran Hyperlipidemia 39724313 E78.5 on simvastati n Atrial fibrillation 4943 6004 I48.91 on xarelto, follows cardiology - Dr. Moran Anxiety 36661055 F41.9 never started lexapro, mood is now stablecall office if any change in mood or behavior Edema of l ower extremity 676848746 R60.0 follows cardiology , she is not wearing her compressio n stockings everyday- recommend she start doing this during the day, elevate feet when home sitting she had echo done 02/2022- EF 60%on lasix, potassium She did see Dr. Moran, he recommende d Venaseal- she continues to refuse this Mammogram declined 42048 5004 Z53.20 declines 2/2 age, risks explained including missed cancer and Colonoscopy declined 100 9881515 55778 Z53.20 declines 2/2 age, risks explained including missed cancer and Pain of bi lateral knee joints 5158709596 48801 M25.561 M25.562 Follows ortho- Dr. Muniz, has had cortisone injections in the past, may consider gel injections Intramural calcification of gallbladder 177088517 K82.8 Was referred to [facility] in summer 2019, she refuses referral, is not interested in going Also refuses repeat gallbladde r u/s, discussed increased risk of gallbladde r cancer with porcelain gallbladde r Call office if she changes her mind on referral 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 112631402 E11.9 she is not taking her metformin- encouraged her to do thisrechec k labsto eye MD for DM eye examto podiatry for DM foot carerecomm end daily foot checks, daily lotion avoiding webspaces Anemia 783506168 D64.9 on iron and B12has order for fecal immunochem istry as she has refused cscope Hammer toe 175145024 M20 .41 podiatry as above Iron deficiency 12695122 E61.1 on iron supplement Cobalamin deficiency 190 377057 E53.8 on B12 supplement Recurrent urinary tract infection 101857515 N39.0 check UA, if has another infection, may need urology referral Unable to cut own toenails 724279666 Z74.1 podiatry referral as above [id number] Heron Harley DPM [facility] Podiatry [place] [address] [place] [address] 08/11/2023 16:31:14 08/12/2023 12:40:10 Cut of great toe 625977012 S91.111A right plantar great toewound care daily until healedIf signs of infection present seek medical attention immediatel yFollow-up as needed Dystrophia unguium 93746 009 L60.3 Nails 1 through 10 were debrided with sharp mechanical debridemen t without incident. Nails were debrided and greater than 50% length and thickness where needed. Diabetes mellitus 204162 09 E11.40 L60.0 Z74.1 Patient educated on neuropathy , diabetes, diabetic diet, and daily foot exams. Patient is to check feet daily for new wounds, blisters, redness to prevent infection and ulceration s to the feet. Patient will return to clinic in 3 months for diabetic foot workup. [id number] Sonya vigil MD [facility] Internal Med [facility] [address] [facility], [address] [place] [address] 11/27/2023 10:37:09 11/27/2023 11:16:53 Screening - NAD 540272622 Z13.9 C-scope/Ma mmogram/DE XA/PAP: Not doing any, declined 11/27/2023 , no complaints Get yearly flu shot, get tdap if not doneCan do Shingrix vaccineGet RSV vaccineGet PCV #20 if not done or if any series not doneGet COVID 19 vaccine and its boosters RTC in 3 months, do labs, ER if worse, she did verbalize her understand ing of the above Essential hypertension 90068842 I10 On lisinopril -HCTZ 20-25mg dailyOn metoprolol ER 25mg dailyOn K ER 10meq dailyGet labs Hypothyroidism 36445818 E03.9 On levothyrox ine 100mcgs daily Edema of l ower extremity 873466932 R60.0 On lisinopril -HCTZHas seen Dr Moran 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 586077008 E11.9 Get labs Intramural calcification of gallbladder 453083909 K82.8 Does not want any w/u or tests or referrals for this Anemia 073776071 D64.9 Get labs Hammer toe 092757737 M20 .41 See podiatry Pain of bi lateral knee joints 5485599068 37149 M25.561 M25.562 Has seen ortho in the past Dr Yaron thorne see Dr Soriano Hyperlipidemia 17795767 E78.5 On simvastati n 40mg dailyGet labs Vitamin D deficiency 347 33358 E55.9 Atrial fibrillation 4943 6004 I48.91 On xarelto 20mg dailySee Dr Moran [id number] Sonya vigil MD [facility] Internal Med [address] [facility], [address] [place] [address] 02/26/2024 10:53:06 02/26/2024 11:56:28 Adult health examination 318792482 Z00.00 Screening for disorder 140004303 Z13.9 Screening - NAD 29265556 3 Z13.9 C-scope/Ma mmogram/DE XA/PAP: Not doing any, declined 11/27/2023 , no complaints Get yearly flu shot, get tdap if not doneCan do Shingrix vaccineGet RSV vaccineGet PCV #20 if not done or if any series not doneGet COVID 19 vaccine and its boosters RTC in 3 months, do labs, ER if worse, she did verbalize her understand ing of the above Essential hypertension 50055761 I10 On lisinopril -HCTZ 20-25mg daily, stop thisOn losartan 25mg daily given by Dr Isaiah Gee metoprolol ER 25mg dailyOn K ER 10meq dailyGet labs Hypothyroidism 31834450 E03.9 On levothyrox ine 150mcgs daily Edema of l ower extremity 882479913 R60.0 On lisinopril -HCTZHas seen Dr Moran 12/31/2023 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 836684787 E11.9 Get labs Intramural calcification of gallbladder 521043326 K82.8 Does not want any w/u or tests or referrals for this Anemia 896847122 D64.9 Get labs Hammer toe 058333027 M20 .41 See podiatry Pain of bi lateral knee joints 6598894230 75884 M25.561 M25.562 Has seen ortho in the past Dr Marrufo w see Dr Soriano Hyperlipidemia 10034555 E78.5 On simvastati n 40mg dailyGet labs Vitamin D deficiency 347 90782 E55.9 Atrial fibrillation 4943 6004 I48.91 On xarelto 20mg dailySee Dr Moran Chronic ki dney disease 220039246 N18.[address] Isaiah Gee calcitriol 0/25mcgs dailyOn vit D weekly [id number] Sonya vigil MD [facility] Internal Med [facility] [address] [address] 05/27/2024 11:24:46 05/27/2024 11:59:46 Essential hypertension 10914205 I10 On lisinopril -HCTZ 20-25mg daily, stop this! Again advised to stop as she is on losartan! 05/27/2024 On losartan 25mg daily given by Dr Isaiah Gee metoprolol ER 25mg dailyOn K ER 10meq dailyGet labs Screening - NAD 69402993 3 Z13.9 C-scope/Ma mmogram/DE XA/PAP: Not doing any, declined 11/27/2023 , no complaints Get yearly flu shot, get tdap if not doneCan do Shingrix vaccineGet RSV vaccineGet PCV #20 if not done or if any series not doneGet COVID 19 vaccine and its boosters RTC in 3 months, do labs, ER if worse, she did verbalize her understand ing of the above Hypothyroidism 55235229 E03.9 On levothyrox ine 100mcgs daily Edema of l ower extremity 371992933 R60.[address] On losartanOn KHas [address] Dr Moran 12/31/2023 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 963477834 E11.9 Get labs Intramural calcification of gallbladder 523026593 K82.8 Does not want any w/u or tests or referrals for this Anemia 438273327 D64.9 Get labs Hammer toe 194964339 M20 .41 See podiatry Pain of bi lateral knee joints 1937896849 77620 M25.561 M25.562 Has seen ortho in the past Dr Marrufo w see Dr Soriano Hyperlipidemia 32494967 E78.5 On simvastati n 40mg dailyGet labs Vitamin D deficiency 347 89026 E55.9 Atrial fibrillation 4943 6004 I48.91 On xarelto 20mg dailySee Dr Moran Chronic ki dney disease 166337772 N18.[address] Angel IJ, last OV 02/03/2024 On calcitriol 0/25mcgs dailyOn vit D weekly [id number] Sonya vigil MD [facility] Internal Med [facility] [address] [facility], [facility] [address] [place] [address] 09/21/2024 16:50:18 09/21/2024 17:46:05 Essential hypertension 26340655 I10 Not on lisinopril -HCTZ 20-25mg daily On losartan 25mg daily given by Dr Angel IJNot on metoprolol ER 25mg dailyOn K ER 10meq dailyGet labs Screening - NAD 03874645 3 Z13.9 C-scope/Ma mmogram/DE XA/PAP: Not doing any, declined 11/27/2023 , no complaints Get yearly flu shot, get tdap if not doneCan do Shingrix vaccineGet RSV vaccineGet PCV #20 if not done or if any series not doneGet COVID 19 vaccine and its boosters RTC in 1 months, do labs, ER if worse, she and her CG/maryellen jones did verbalize her understand ing of the above Hypothyroidism 57713353 E03.9 On levothyrox ine 100mcgs daily Edema of l ower extremity 455242672 R60.0 On losartanOn KHas seen Dr Moran 12/31/2023 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 379190934 E11.9 Get labs Intramural calcification of gallbladder 767315383 K82.8 Does not want any w/u or tests or referrals for this Anemia 492250001 D64.9 Get labs Hammer toe 000459284 M20 .41 See podiatry Pain of bi lateral knee joints 6198051701 49437 M25.561 M25.562 Has seen ortho in the past Dr Yaron thorne see Dr Soriano Hyperlipidemia 65737477 E78.5 Not on simvastati n 40mg dailyOn rosuvastat in 40mg dailyGet labs Vitamin D deficiency 347 02494 E55.9 Repeat the vit d level Atrial fibrillation 4943 6004 I48.91 On xarelto 20mg dailySee Dr Moran Chronic ki dney disease 093466027 N18.[address] Angel IJ, last OV 02/03/2024 On calcitriol 0/25mcgs dailyOn vit D weekly Transition of care 88601 26580 105 Z75.8 Unsteady when walking 22 877641 R26.89 Uses a walker, get a lightweigh t wheelchair , as this would help her in the ADLs and IADLs and help with mobility Health Concerns Section Related Observation LastModified by Organization Detai ls LastModified Time None Recorded Concern Status LastModified by Organization Details LastModified Time None Recorded Advance Directives Directive N: information provided Payers Encounter Date Sequence Insurance Name Policy Number Policy Shoemaker Covered Member ID Shoemaker Member ID Guarantor Name 08/11/2023 1 [employer] (MEDICARE REPLACEMENT/A DVANTAGE - PPO) Wendy Rose [id number] Wendy Rose 11/27/2023 1 [employer] (MEDICARE REPLACEMENT/A DVANTAGE - PPO) Wendy Rose [id number] Wendy Rose 02/26/2024 1 [employer] (MEDICARE REPLACEMENT/A DVANTAGE - PPO) Wendy Rose [id number] Wendy Rose 05/27/2024 1 [employer] (MEDICARE REPLACEMENT/A DVANTAGE - PPO) Wendy Rose [id number] Wendy Rose 09/21/2024 1 [employer] (MEDICARE REPLACEMENT/A DVANTAGE - PPO) Wendy Rose [id number] Wendy Rose Notes Date Note Type Note Provider Name and Address Organization Details Recorded Time 08/11/2023 text/html . Patient is a 82-year-old female who returns to the office for a diabetic foot exam. Patient states she is doing well. Patient denies any new complaints. Patient denies any open wounds or infection. Patient denies any discomfort weight-bearing. Patient states that she does have a small skin fissure due to dry skin under the great toe of the right foot. patient states when she dorsiflexes her toe she has mild sharp pain. Patient denies any fever, chills, nausea or vomiting. Heron Harley DPM [address], [address], [place], [address], [employer] 08/11/2023 17:36:04 11/27/2023 text/html OV 11/27/2023:He re to establish care Present hx:Sharona rojassm Here to discuss above and get labs Sonya Jackson MD [address], [address], [place], [address], [employer] 12/03/2023 15:13:41 02/26/2024 text/html OV 11/27/2023:He re to establish care Present hx:Sharona rojassm Here to discuss above and get labs OV 02/26/2024: Here for her f/u apt, she is doing well, she is here for her MWV also, no new labs is willing to do them today as she is fasting Sonya Jackson MD [address], [address], [place], [address], [employer] 03/01/2024 18:41:36 05/27/2024 text/html OV 11/27/2023:He re to establish care Present hx:Sharona rojassm Here to discuss above and get labs OV 02/26/2024: Here for her f/u apt, she is doing well, she is here for her MWV also, no new labs is willing to do them today as she is fasting OV 05/27/2024: Here for her f/u apt, she feels well today, no new labs Sonya Jackson MD [address], [place], [address], [employer] 06/14/2024 19:03:37 09/21/2024 text/html OV 11/27/2023:He re to establish care Present hx:HTNHLDHypothyro idism Here to discuss above and get labs OV 02/26/2024: Here for her f/u apt, she is doing well, she is here for her MWV also, no new labs is willing to do them today as she is fasting OV 05/27/2024: Here for her f/u apt, she feels well today, no new labs OV 09/21/2024: Here for her f/u apt, she is doing well today, here with her daughter Kathy, was admitted and d/c from [facility] for UTI, and ? TIA, now is done with her cipro and feels at her baseline, the daughter would like her to get a wheelchair Sonya Jackson MD [address] [facility], [address], [place], [address], [employer] 09/22/2024 14:38:18 OBGyn Episode No OBEpisode recorded.
[2024-10-26] MEDS: HYDROcodone/acetaminophen (*CRX) 5-325 MG TABLET 1 TAB PO (04:56)
[2024-10-26] MEDS: ONDANSETRON INJ 4 MG/2 ML VIAL IV PUSH (04:56)
[2024-10-26] MEDS: CLINDAMYCIN 600 MG/D5W 50 ML 600 MG/50 ML PIGGYBACK 100 MG IVPB (04:56)
[2024-10-26 04:57] VITALS: BP 147/71; O2SAT 96
[2024-10-26 05:01] VITALS: BP 153/74; O2SAT 95
[2024-10-26 05:04] LABS: Basophils Percent Auto 0.3 % (0.2-1.2); Eosinophils Absolute Auto 0.1 K/mm3 (0-0.3); Eosinophils Percent Auto 0.5 % (0-4.4); Hemoglobin 12.8 g/dL (12.0-15.0); Immature Granulocyte Absolute 0.05 K/mm3 (0.00-0.031); Immature Granulocyte Percent A 0.4 % (0-0.5); Lymphocytes Absolute Auto 0.85 K/mm3 (0.9-3.2); Lymphocytes Percent Auto 6.4 % (18.3-44.2); Mean Corpuscular Hemoglobin 29.8 pg (26-34); Mean Platelet Volume 10.7 fl (7.4-10.4); Monocytes Absolute Auto 0.6 K/mm3 (0.1-0.6); Monocytes Percent Auto 4.2 % (2.6-8.5); Neutrophils Absolute Auto 11.7 K/mm3 (1.3-6.7); Neutrophils Percent Auto 88.2 % (45.5-73.1); Platelet Count Result 175 k/mm3 (150-375); White Blood Count 13.3 K/mm3 (4.5-10.0)
[2024-10-26 05:16] VITALS: BP 138/71; O2SAT 92
[2024-10-26 05:16] LABS: Lactic Acid Reflex 1.2 mmol/L (0.7-2.0)
[2024-10-26 05:17] LABS: Alanine Aminotransferase 17 U/L (6-35); Albumin Level 4.2 g/dL (3.5-5.1); Alkaline Phosphatase 82 U/L (38-126); Anion Gap 8 mmol/L (4-12); Aspartate Amino Transferase 17 U/L (14-36); Bilirubin,Total 1.2 mg/dL (0.2-1.3); Blood Urea Nitrogen 24 mg/dL (7-17); CRP 6.8 mg/dL (<1.0); Calcium 9.2 mg/dL (8.4-10.2); Carbon Dioxide 30 mmol/L (22-30); Chloride 101 mmol/L (98-107); Creatine Kinase 60 U/L (30-135); Estimated CRCL calculation 48 ml/min; Estimated Glomerular Filt Rate > 60; Glucose 175 mg/dL (65-110); Magnesium 2.1 mg/dL (1.6-2.3); Potassium 3.8 mmol/L (3.4-5.0); Sodium 139 mmol/L (137-145)
[2024-10-26 05:22] LABS: INR 1.4; Prothrombin Time 17.5 Seconds (11.1-14.7)
[2024-10-26 05:23] LABS: Partial Thromboplastin Time 35.6 Seconds (22.3-36.8)
[2024-10-26 05:24] LABS: NT Pro B Type Natriuretic Pept 744 pg/mL (19.9-100)
== END 2024-10-26 07:04 | disposition home or self-care (01) ==
PROVIDERS: Emergency Provider Student in an Organized Health Care Education/Training Program; PCP Internal Medicine
DX: L03.115 Cellulitis of right lower limb (principal); D72.829 Elevated white blood cell count, unspecified; I48.91 Unspecified atrial fibrillation; I10 Essential (primary) hypertension; E78.00 Pure hypercholesterolemia, unspecified; E11.9 Type 2 diabetes mellitus without complications; Z86.711 Personal history of pulmonary embolism; Z79.01 Long term (current) use of anticoagulants; Z79.899 Other long term (current) drug therapy
CPT/HCPCS: 36415; 73590; 73610; 80053; 82550; 83605; 83735; 83880; 85025; 85610; 85730; 86140; 87040; 96365; 96375; 99284; A9270; J2405

== ENCOUNTER 2024-11-14 10:46 | Emergency (ER) | payer MEDICARE, SELFPAY ==
--- NOTE | 2024-11-14 11:00 | ED.LOWEXIN ---
HPI - Extremity Injury (Lower) General Chief Complaint: Extremity Problem,Nontraumatic Stated Complaint: Foot Pain Time Seen by Provider: 11/14/24 11:15 Source: patient Mode of arrival: ambulatory Limitations: no limitations History of Present Illness HPI Narrative: Joints is an 84-year-old male patient presenting to the clinic today with complaints of a blister to the right medial ankle. She reports she 1st noticed this today. Is on currently taking antibiotics for cellulitis. Is taking clindamycin and Keflex. Denies any fevers, chills, body aches. Blister is not open or draining Related Data Home Medications ?Medication ?Instructions ?Recorded ?Confirmed ?Last Taken ?Type levothyroxine 100 mcg tablet 100 mcg PO QAM 01/02/22 02/18/22 02/18/22 History (Euthyrox) metoprolol tartrate 25 mg tablet 25 mg PO DAILY 01/02/22 02/18/22 02/18/22 History rivaroxaban 20 mg tablet (Xarelto) 20 mg PO DAILY 01/02/22 02/18/22 02/13/22 History simvastatin 20 mg tablet 20 mg PO DAILY 01/02/22 02/18/22 02/17/22 History lisinopril 20 1 tablet PO QAM 02/08/22 02/18/22 02/17/22 History mg-hydrochlorothiazide 25 mg tablet Allergies Allergy/AdvReac Type Severity Reaction Status Date / Time codeine AdvReac Intermediate NAUSEA Verified 12/10/23 20:54 Review of Systems Review of Systems: Pertinent positives per HPI. Patient denies any fever, chills, rash, headache, visual changes, dizziness, cough, shortness of breath, chest pain, palpitations, nausea, vomiting, diarrhea, constipation, abdominal pain, or any urinary issues. [facility] Past Medical History Medical History History of cellulitis w/o MRSA History of pulmonary embolism A-fib Diabetes type 2, controlled High blood pressure High cholesterol Surgical History Surgical History History of left heart catheterization Family History Family History Other Acute myocardial infarction Acute rheumatic arthritis Cancer Depression Hypertension Social History Social History Social History: Daughter Kathy Smoking status: Never smoker Alcohol intake: current Substance use: never Substance use type: does not use Living arrangements: with family Additional living arrangements comments: DAUGHTER Occupation/Education: retired Gender identity (if verbalized by the patient): Female Spiritual care concerns: No Comments At the time of my signature, I reviewed and agree with the nursing past medical, surgical, social, and family history. There is no relevant family history pertinent to the patient complaint. Exam Narrative: General: Well-developed, well nourished, in no apparent distress Head: Normocephalic, atraumatic. Cardio: Regular rate and rhythm, s1 and s2 normal, no murmur appreciated. Resp: Clear to auscultation bilaterally, no rhonchi, rales, wheezing or rubs. Integumentary: [place], warm, and dry, fluid-filled blister to the right medial ankle, nontender to palpation, no erythema, mild redness to the right ankle and foot, 1+ pitting edema Course Course Emergency Course: Portions of this record may have been created with voice recognition software. Level of Care: Express Care Visit Vital Signs Vital signs: Vital signs reviewed MDM - Extremity Injury (Lower) MDM Narrative Medical decision making narrative: At the time of visit patient is resting comfortably on the exam table. Patient appears to be nontoxic. Plan: I suspect patient has a blister to the right medial ankle. Patient is currently taking antibiotics. Has podiatry appointment tomorrow scheduled. Recommend not popping the blister leaving alone until seen by Podiatry. Supportive measures were discussed with the patient and they voiced understanding discharge instructions and agrees to treatment plan. Return precautions reviewed Differential Diagnosis Differential diagnosis: Likely other (Skin infection, blister, abscess, cellulitis) Discharge Plan Discharge Clinical Impression: Blister Patient Disposition: Home, Self-Care Condition: Stable Instructions: Antibiotic Form, Blister (ED) Additional Instructions: You have a blister to the right medial ankle Keep area clean and dry Watch for signs and symptoms of worsening infection Do not pop the blister-allow this to pop on its own Continue current medications as prescribed Follow-up with your official greeter tomorrow as scheduled Patient Language: Occitan Prescriptions: No Action metoprolol tartrate 25 mg tablet 25 mg PO DAILY simvastatin 20 mg tablet 20 mg PO DAILY Xarelto 20 mg tablet 20 mg PO DAILY Rx Instructions: must administer with evening meal levothyroxine [Euthyrox] 100 mcg tablet 100 mcg PO QAM cephalexin 500 mg capsule 500 mg PO Q12H 7 Days Qty: 14 0RF lisinopril-hydrochlorothiazide 20-25 mg tablet 1 tablet PO QAM tramadol 50 mg tablet 50 mg PO Q6H PRN (Reason: pain) Qty: 20 0RF docusate sodium [Colace] 100 mg capsule 100 mg PO BID Qty: 60 0RF furosemide [Lasix] 20 mg tablet 20 mg PO DAILY 3 Days Qty: 3 0RF furosemide [Lasix] 20 mg tablet 20 mg PO DAILY Qty: 3 0RF potassium chloride 20 mEq packet 20 meq PO DAILY Qty: 3 0RF clindamycin HCl 150 mg capsule 450 mg PO TID 5 Days Qty: 45 0RF acetaminophen 500 mg capsule 1,000 mg PO Q6H PRN (Reason: pain) Qty: 30 0RF Follow-up/Referrals: PHYSICIAN,TELETRAY OPERATOR [Primary Care Provider] - Time of Disposition: 11:16 Quality NIHSS Nursing Documentation ED NIHSS nursing documentation: reviewed/agree
[2024-11-14 11:04] VITALS: BP 177/81; PULSE 85; RESP 20; TEMP 36.6; O2SAT 97
== END 2024-11-14 11:18 | disposition home or self-care (01) ==
PROVIDERS: Emergency Provider Nurse Practitioner Family
DX: S90.821A Blister (nonthermal), right foot, initial encounter (principal); I48.91 Unspecified atrial fibrillation; E11.9 Type 2 diabetes mellitus without complications; X58.XXXA Exposure to other specified factors, initial encounter
CPT/HCPCS: 99211; G0463

== ENCOUNTER 2024-11-26 11:51 | Inpatient (IN) | payer MEDICARE, SELFPAY ==
--- NOTE | ~2024-11-26 | CT_ITS ---
Procedure: CT LE RT w con Ordering provider: Dimple Giles History: . edema, erythema, blistering . Comparison: None. Technique: Thin slice axial CT of the right lower extremity. IV contrast was given. Sagittal and moriah nal reformatted images were also obtained and reviewed. 100 mL Omnipaque 350 was given IV. Radiation reduction technique utilized.The dose-length product was 1170.1 mGy-cm. Findings: BONES: No acute osseous abnormality. No evidence of fracture or osteomyelitis. JOINT SPACES: Severe narrowing of the medial compartment of the knee joint suggestive of severe osteo arthritic changes. SOFT TISSUES: Edema is seen in the subcutaneous tissues suggestive of inflammatory changes or due to edema. Focal areas are small collections are noted measuring measuring 0.8 x 1.7 cm and 1.5 by 1cm. T hese 2 areas are seen above the ankle joint anterolaterally IMPRESSION: Edema in the subcutaneous tissues with 2 collections seen above the antecubital anterolaterally. Furt her evaluation and Follow-up advised. Reviewed, dictated and finalized at location A. IMPRESSION: Edema in the subcutaneous tissues with 2 collections seen above the antecubital anterolaterally. Further evaluation and Follow-up advised.
--- NOTE | ~2024-11-26 | US_ITS ---
RIGHT LOWER EXTREMITY VENOUS ULTRASOUND Ordering provider: Dimple Giles PA-C History: . edema, erythema . Comparison: None. FINDINGS: --COMMON FEMORAL: Patent and free of thrombus. Normal compressibility, phasic flow and augmentation. --PROXIMAL SUPERFICIAL FEMORAL: Patent and free of thrombus. Normal compressibility, phasic flow and augmentation. --DISTAL SUPERFICIAL FEMORAL: Patent and free of thrombus. Normal compressibility, phasic flow and au gmentation. --POPLITEAL: Patent and free of thrombus. Normal compressibility, phasic flow and augmentation. --POSTERIOR TIBIAL: Patent and free of thrombus. Normal compressibility, phasic flow and augmentation . IMPRESSION: Negative right lower extremity venous US. No deep vein thrombosis. Reviewed, dictated and finalized at location A.
--- NOTE | ~2024-11-26 | XR_ITS ---
Left Knee Technique: AP and lateral views were obtained. Clinical History: Pain Findings: No fracture or dislocation is seen. There is medial compartment narrowing, with severe medi al compartment degenerative change and moderate to severe lateral and patellofemoral compartment dege nerative change. Soft tissues are unremarkable. No joint effusion is seen. Impression: Tricompartmental degenerative change, as detailed above. Reviewed, dictated and finalized at location M. Impression: Tricompartmental degenerative change, as detailed above.
[2024-11-26 11:58] VITALS: BP 176/93; PULSE 70; RESP 16; TEMP 36.9; O2SAT 95
--- OUTSIDE RECORDS SUMMARY | 2024-11-26 12:18 | XMS_ITS | Clinical Summary ---
Author Organization [facility] Address [address] [place] [address] Care Team Providers Care Heavy Cleaner Name Role Phone Sonya Jackson MD Primary Care Provider Allergies No known active [...] (two) times daily as needed (pain). Active doxycycline hyclate (VIBRAMYCIN) 100 MG capsule Take 1 capsule (100 mg total) by mouth 2 (two) times daily for 7 days. 14 capsule 11/16/19 25 Active Problems Problem Noted Date Diagnosed Date NSTEMI (non-ST elevation gia cardial infarction) ([facility]) 04/11/2020 NSTEMI (non-ST elevated myoc ardial infarction) ([facility]) 04/10/2020 Encounters Date Type Department Care Team Description 11/08/2024 5:34 PM SIGN [facility]PENTER - 11/08/2024 7:39 PM S[facility] Emergency [facility] [place] [address] Hamilton Neely MD Ankle Swelling Discharge Disposition: Home or Self Care (Routine Discharge) 11/08/2024 Travel from Last 3 Months Social History Tobacco [...] Information Value Date Recorded Sex Assigned at Female 11/08/2024 4:28 PM SIGN CARPENTER Legal Sex Female 11:07 AM CDT Gender Identity Not on file Sexual Orientation Not on file Last Filed Vital Signs Vital Sign Reading Time Taken Comments Blood Pressure 150/90 11/08/2024 7:23 PM SIGN [facility] Pulse 77 11/08/2024 7:23 PM SIGN [facility] Temperature 36.6 C (97.8 F) 11/08/2024 3:44 PM SIGN [facility]PENTER Respiratory Rate 20 11/08/2024 7:23 PM SIGN CARPENTER Oxygen Saturation 98% 11/08/2024 7:23 PM SIGN [facility]PENTER Inhaled Oxygen Concentration - - Weight 86.2 kg (190 lb) 11/08/2024 3:44 PM SIGN CARPENTER Height 154.9 cm (5' 1 ) 11/08/2024 3:44 PM SIGN [facility]PENTER Body Mass Index 35.9 11/08/2024 3:44 PM SIGN CARPENTER Plan of Treatment Health Maintenance Due Date Last Done Comments ASCVD Statin 1940 Pneumococcal Vaccine: 65+ Years (1 of 2 - PCV) 1945 DTaP, Tdap and Td Vaccines ( 1 - Tdap) 1958 Zoster Vaccines (1 of 2) 1989 Annual Medicare Wellness Visit 2004 Dexa Scan (General) 2004 RSV Immunization or 60+ Years (1 - 1-dose 75+ series) 2014 ASCVD LDL 04/11/2021 04/11/2020 COVID-19 Vaccine (3 - 2023-2 5 season) 2024 06/28/2021, 06/07/2021 Influenza Adult (#1) 2024 Meningococcal B Vaccine Aged Out No l onger eligible based on patient's age to complete this topic Meningococcal Vaccine Aged Out No jaren lisa eligible based on patient's age to complete this topic RSV Immunizations Under 20 Months Aged Out No longer eligible b ased on patient's age to complete this topic Procedures Procedure Name Priority Date/Time Associated Diagnosis Comments XR ANKLE RT M3V STAT 11/08/2024 5:42 PM SIGN CARPENTER D-DIMER, QUANTITATIVE STAT 11/08/2024 4:22 PM [facility]PENTER COMPREHENSIVE METABOLIC PANEL STAT 11/08/2024 4:22 PM SIGN [facility]PENTER CBC W/DIFF AUTOMATED STAT 11/08/2024 4:22 PM SIGN [facility]PENTER LIPID PANEL Routine 04/11/2020 1:10 AM CDT from Last 3 Months or Most Recently Relevant to Health Maintenance Results * XR ANKLE RT M3V (11/08/2024 5:42 PM SIGN CARPENTER) Anatomical Region Laterality Modality Ankle Radiographic Iza ging 11/08/2024 5:34 PM SIGN CARPENTER Impressions 11/08/2024 5:42 PM SIGN CARPENTER IMPRESSION:===== 1. No acute osseous finding. 2. Mild arthritic changes and calcaneal spurring. 3. Right ankle greater than greater than distal leg circumferential soft tissue swelling, nonspecific. Referred By: Interpreted By: Minerva Irizarry MD, 11/08/2024 5:34 PM Narrative 11/08/2024 5:42 PM S[facility] [address] [address] Examination: Right ankle 3 views Exam date/time: 11/08/2024 5:21 PM Reason For Exam: 84 female. Right ankle swelling, redness and warmth. Prior history of cellulitis Comparison: None Technique: AP, oblique and lateral views of the right ankle were obtained. Findings: No acute bony injury seen. There is no fracture dislocation injury. Alignment is anatomic. Ankle mortise is maintained. Overall normal bone density. No erosive destructive change or focal lesion. Arthritic changes primarily with mild joint space narrowing and degenerative marginal spurring including of the anterior tibial plafond. Mild Achilles insertional enthesopathy. Moderate-sized plantar calcaneal spur. Generalized the distal leg subcutaneous edema. Severe circumferential ankle soft tissue swelling. Nonspecific. No radiopaque foreign body seen. ===== Procedure Note Minerva Irizarry MD - 11/08/[address] [address] Examination: Right ankle 3 views Exam date/time: 11/08/2024 5:21 PM Reason For Exam: 84 female. Right ankle swelling, redness and warmth.Prior history of cellulitis Comparison: None Technique: AP, oblique and lateral views of the right ankle wereobtained. Findings: No acute bony injury seen. There is no fracture dislocationinjury. Alignment is anatomic. Ankle mortise is maintained. Overallnormal bone density. No erosive destructive change or focal lesion. Arthritic changes primarily with mild joint space narrowing anddegenerative marginal spurring including of the anterior tibial plafond. Mild Achilles insertional enthesopathy. Moderate-sized plantar calcanealspur. Generalized the distal leg subcutaneous edema. Severe circumferentialankle soft tissue swelling. Nonspecific. No radiopaque foreign body seen. ===== IMPRESSION:===== 1. No acute osseous finding. 2. Mild arthritic changes and calcaneal spurring. 3. Right ankle greater than greater than distal leg circumferential softtissue swelling, nonspecific. Referred By: Interpreted By: Minerva Irizarry MD, 11/08/2024 5:34 PM [facility] Final Resul t * (ABNORMAL) COMPREHENSIVE METABOLIC PANEL (11/08/2024 4:22 PM [facility]) [facility] GLUCOSE 167(H) 70 - 99 MG/DL 11/08/2024 6:[address] [facility] BUN 33(H) 7 - 18 MG/DL 11/08/2024 6:[address] [facility] CREATININE S/P/B 1.21(H) 0.55 - 1.02 MG/DL 11/08/2024 6:[address] [facility] SODIUM S/P/B 138 136 - 145 MMOL/L 11/08/2024 6:[address] [facility] POTASSIUM S/P/B 3.5 3.5 - 5.1 MMOL/L 11/08/2024 6:[address] [facility] CHLORIDE S/P/B 105 97 - 115 MMOL/L 11/08/2024 6:[address] [facility] CO2 32.3(H) 21 - 32 MMOL/L 11/08/2024 6:[address] [facility] CALCIUM S/P/B 9.3 8.5 - 10.1 MG/DL 11/08/2024 6:[address] [facility] BILIRUBIN TOTAL S/P/B 0.5 0.2 - 1.2 MG/DL 11/08/2024 6:[address] [facility] Comment: THIS ASSAY IS NOT RECOMMENDED FOR PATIENTS UNDERGOING TREATMENT WITH ELTROMBOPAG DUE TO THE POTENTIAL FOR FALSELY ELEVATED RESULTS. TOTAL PROTEIN S/P/B 7.1 6.4 - 8.2 G/DL 11/08/2024 6:[address] [facility] ALBUMIN S/P/B 3.5 3.4 - 5.0 G/DL 11/08/2024 6:[address] [facility] AST 19 15 - 37 U/L 11/08/2024 6:24 PM S[facility] ALT 34 14 - 55 U/L 11/08/2024 6:[address] [facility] ALKALINE PHOSPHATASE S/P/B 81 50 - 136 U/L 11/08/2024 6:24 PM [facility] ANION GAP 0.7(L) 2 - 10 MMOL/L 11/08/2024 6:24 PM [facility] BUN CREATININE RATIO 27.3(H) 6 - 26 11/08/2024 6:[address] [facility] A/G RATIO 1.0 1.0 - 2.0 RATIO 11/08/2024 6:[address] [facility] GFR ESTIMATE 44(L) >90 ML/MIN/1.7 3 M2 11/08/2024 6:[address] [facility] Comment: NOTE: eGFR is not calculated for patients <18 years of age or gender unknown. This is an estimated GFR calculation using the new CKD EPI creatinine equation without race and so does not require a correction factor for race. This estimated GFR should not be used for calculating drug doses. 11/08/2024 4:22 PM [facility] Final Resul t [facility] [address] [place] [address], * (ABNORMAL) D-DIMER, QUANTITATIVE (11/08/2024 4:22 PM S[facility]) [facility] D-DIMER 513(HH) 0 - 500 ng{FEU}/mL 11/08/2024 6:[address] [facility] Comment: D-Dimer values less than or equal to 500 ng/mL FEU have a negative predictive value of >95% for exclusion of deep vein thrombosis and pulmonary embolism. In patients over 50 (who tend to have higher normal baseline D-Dimer values), recent studies suggest age-adjusted D-Dimer cutoff values (calculated as: age [years] x 10 ng/mL) result in equivalent outcomes and no additional false negative findings. Successful Call: DDIMR called 11/08/2024 06:21 PM to EMERGENCY ROOM ([id number]/[facility]) by [id number]. Read Back: Yes 11/08/2024 4:22 PM S[facility] us [facility] Final Resul t [facility] [address] [place] [address], * (ABNORMAL) CBC W/DIFF AUTOMATED (11/08/2024 4:22 PM SIGN [facility]PENTER) WBC 9.01 4.5 - 11.0 x10'3/uL 11/08/2024 6:[address] [facility] RBC 3.98(L) 4.20 - 5.40 x10'6/uL 11/08/2024 6:[address] [facility] HGB 11.6(L) 12.0 - 16.0 G/DL 11/08/2024 6:03 PM [facility] HCT 37.4(L) 38.0 - 48.0 % 11/08/2024 6:[address] [facility] MCV 94.0 81.0 - 99.0 FL 11/08/2024 6:[address] [facility] MCH 29.1 27.0 - 31.0 PG 11/08/2024 6:03 PM [facility] MCHC 31.0(L) 32.0 - 36.0 G/DL 11/08/2024 6:[address] [facility] RDW 13.7 11.5 - 14.5 % 11/08/2024 6:[address] [facility] PLT 189 130 - 400 x10'3/uL 11/08/2024 6:[address] [facility] MPV 10.4 9.3 - 12.2 FL 11/08/2024 6:[address] [facility] DIFFERENTIAL TYPE AUTOMATED DIFFERENTIAL 11/08/2024 6:[address] [facility] NEUTROPHILS % 75.9 % 11/08/2024 6:[address] [facility] LYMPHOCYTES % 14.7 % 11/08/2024 6:[address] [facility] MONOCYTES % 6.3 % 11/08/2024 6:[address] [facility] EOSINOPHILS 2.2 % 11/08/2024 6:[address] [facility] BASOPHILS 0.6 % 11/08/2024 6:[address] [facility] IMMATURE GRANS % 0.3 % 11/08/19 6:[address] [facility] ABS. NEUTROPHILS 6.84 1.80 - 7.70 x10'3/uL 11/08/2024 6:[address] [facility] ABS. LYMPHOCYTES 1.32 1.00 - 4.80 x10'3/uL 11/08/2024 6:[address] [facility] ABS. MONOCYTES 0.57 0.24 - 0.86 x10'3/uL 11/08/2024 6:[address] [facility] ABS. EOSINOPHILS 0.20 0.04 - 0.36 x10'3/uL 11/08/2024 6:[address] [facility] ABS. BASOPHILS 0.05 0.01 - 0.08 x10'3/uL 11/08/2024 6:03 PM S[facility] ABS. IMMATURE GRANULOCYTES 0.03 0.00 - 0.49 x10'3/uL 11/08/2024 6:03 PM S[facility] 11/08/2024 4:22 PM [facility] Final Resul t [facility] [address] [place] [address], [place] [phone] * (ABNORMAL) LIPID PANEL (04/11/2020 1:10 AM CDT) CHOLESTEROL 102 <200 MG/DL 04/11/2020 2:00 AM CDT [facility] TRIGLYCERIDES 182(H) <150 MG/DL 04/11/2020 2:00 AM CDT [facility] HDL 38(L) >40.0 MG/DL 04/11/2020 2:00 AM CDT [facility] LDL (CALCULATED) 28 <100 MG/DL 04/11/2020 2:00 AM CDT [facility] NON HDL CHOLESTEROL 64 <130 MG/DL 04/11/2020 2:00 AM CDT [facility] CHOL/HDL RATIO 2.7 0.0 - 4.5 04/11/2020 2:00 AM CDT [facility] VLDL CALCULATION 36 5 - 55 MG/DL 04/11/2020 2:00 AM CDT [facility] LIPID INTERPRETATION 04/11/2020 2:00 AM T [facility] Comment: [facility] REPORT RECOMMENDATIONS: ADULT CHILD LOW RISK: CHOLESTEROL <200 <170 TRIGLYCERIDE <150 --- HDL >=60 --- LDL <100 <110 BORDERLINE: CHOLESTEROL 200-239 170-199 TRIGLYCERIDE 150-199 --- HDL 40-59 --- LDL 100-159 110-129 HIGH RISK: CHOLESTEROL >=240 >=200 TRIGLYCERIDE >=200 --- HDL <40 --- LDL >=160 >=130 04/11/2020 1:10 AM CDT Alexander Fofana MD LABORATORY Final Result [facility] [address] [place] [address], from Last 3 Months or Most Recently Relevant to Health Maintenance Insurance [employer] Advance Directives * DNR (Latest Code Status on File) Date Activated Date Inactivated Comments 04/10/2020 11:07 PM 04/12/2020 5:32 PM Care Teams Heavy Cleaner Relationship Specialty Start Date End Date Sonya Jackson MD [address] [facility] [address] [place] [address] PCP - General INTERNAL MEDICINE 11/08/24
--- OUTSIDE RECORDS SUMMARY | 2024-11-26 12:18 | XMS_ITS | Referral Summary ---
Author Organization [facility] Address [address] [place] [address] Care Team Providers Care Quill Machine Tender Name Role Phone Brianne Ko APRN-BARRERA Primary Care Provider [phone] Source Comments [facility],non-owned Affiliates and Associated Physician Practices is amultiple site organization consisting of ambulatory clinics and hospital sitesin [place], [place], [place] and [place]. This disclosure is being madepursuant to the Care Everywhere program and may not contain all information available regarding this patient. Last updated 18.[facility] Encounters Date Type Department Care Team Description 09/16/2024 Telephone Transitional Care at [facility] [address] [place] [id number] Karly Upton RNmusic artist 09/12/2024 6:24 PM PLAYGROUND ATTENDANT - 09/14/2024 12:47 PM [facility] Hospital Encounter [facility] [address] [place] [phone] Nacho Clay, Lauri Pino MD Aphasia (Primary [...] Comments Blood Pressure 172/72 09/14/2024 11:16 AM PLAYGROUND ATTENDANT Pulse 88 09/14/2024 11:17 AM PLAYGROUND ATTENDANT Temperature 36.7 C (98 F) 09/13/2024 10:47 PM PLAYGROUND ATTENDANT Respiratory Rate 18 09/14/2024 11:17 AM PLAYGROUND ATTENDANT Oxygen Saturation 95% 09/14/2024 11:17 AM PLAYGROUND ATTENDANT Inhaled Oxygen Concentration - - Weight 88.9 kg (196 lb) 09/13/2024 9:36 AM PLAYGROUND ATTENDANT Height 162.6 cm (5' 4 ) 09/13/2024 8:32 PM PLAYGROUND ATTENDANT Body Mass Index 37.03 09/13/2024 9:36 AM PLAYGROUND ATTENDANT Functional Status Functional Status Response Date of [...] CARDIAC EKG ORDER 09/14/2024 1:[address] HEAD WO CONTRAST Routine 09/14/2024 6 :00 AM PLAYGROUND ATTENDANT Transient alteration of awareness Facial droop CBC W/O DIFFERENTIAL STAT 09/14/2024 2:15 AM PLAYGROUND ATTENDANT BASIC METABOLIC PANEL (CALCIUM TOTAL) STAT 09/14/2024 2:15 AM PLAYGROUND ATTENDANT GLUCOSE - POINT OF CARE Routine 09/13/2024 10:46 PM PLAYGROUND ATTENDANT GLUCOSE - POINT OF CARE Routine 09/13/2024 5:46 PM PLAYGROUND ATTENDANT TROPONIN-I HIGH SENSITIVE STAT 09/13/2024 1:22 PM PLAYGROUND ATTENDANT Aphasia GLUCOSE - POINT OF CARE Routine 09/13/2024 12:19 PM PLAYGROUND ATTENDANT BLOOD TYPE VERIFICATION STAT 09/13/2024 8:49 AM PLAYGROUND ATTENDANT TROPONIN-I HIGH SENSITIVE REFLEX 1HOUR Timed 09/13/2024 8:49 AM PLAYGROUND ATTENDANT URINALYSIS W/MICROSCOPIC NO CULTURE STAT 09/13/2024 8:45 AM PLAYGROUND ATTENDANT HEMOGLOBIN A1C Add on 09/13/2024 6:00 AM PLAYGROUND ATTENDANT LIPID PROFILE STAT 09/13/2024 6:00 AM PLAYGROUND ATTENDANT CBC W/O DIFFERENTIAL STAT 09/13/2024 6:00 AM PLAYGROUND ATTENDANT BASIC METABOLIC PANEL (CALCIUM TOTAL) STAT 09/13/2024 6:00 AM PLAYGROUND ATTENDANT T4 FREE Routine 09/12/2024 7:10 PM PLAYGROUND ATTENDANT Aphasia Transient alteration of awareness Facial droop Hypothyroidism, unspecified type TSH REFLEX FREE T4 Routine 09/12/2024 7: 10 PM PLAYGROUND ATTENDANT Aphasia Transient alteration of awareness Facial droop Hypothyroidism, unspecified type PHOSPHORUS BLOOD Routine 09/12/2024 7:10 PM PLAYGROUND ATTENDANT Aphasia Transient alteration of awareness MAGNESIUM BLOOD Routine 09/12/2024 7:10 PM PLAYGROUND ATTENDANT Aphasia Transient alteration of awareness TROPONIN-I HIGH SENSITIVE BASELINE + 1HR STAT 09/12/2024 7:10 PM PLAYGROUND ATTENDANT EKG 12-LEAD STAT 09/12/2024 7:04 PM PLAYGROUND ATTENDANT Aphasia Transient alteration of awareness XR CHEST 1VW PORTABLE STAT 09/12/2024 6:54 PM PLAYGROUND ATTENDANT Aphasia Transient alteration of awareness CT ANGIO BRAIN NECK STROKE STAT 09/12/2024 6:42 PM PLAYGROUND ATTENDANT Aphasia Transient alteration of awareness TYPE + SCREEN PANEL STAT 09/12/2024 6 :39 PM PLAYGROUND ATTENDANT PT-INR [facility] STAT 09/12/2024 6:39 PM PLAYGROUND ATTENDANT COMPREHENSIVE METABOLIC PANEL STAT 09/12/2024 6:39 PM PLAYGROUND ATTENDANT CBC W AUTO DIFFERENTIAL STAT 09/12/2024 6:39 PM PLAYGROUND ATTENDANT CREATININE - POCT INTERFACED Routine 09/12/2024 6:36 PM PLAYGROUND ATTENDANT INR WHOLE BLOOD - POINT OF CARE (IP) STROKE Routine 09/12/2024 6:[address] BRAIN STROKE STAT 09/12/2024 6:28 PM PLAYGROUND ATTENDANT Aphasia Transient alteration of awareness from Last 3 Months Results * CARDIAC EKG ORDER (09/14/2024 1:29 PM PLAYGROUND ATTENDANT) Narrative 09/14/2024 1:29 PM PLAYGROUND ATTENDANT Ordered by an unspecified provider. Scanned Document CARDIAC SERVICES ORD ERABLES * CT Head Wo Contrast (09/14/2024 6:00 AM PLAYGROUND ATTENDANT) Anatomical Region Laterality Modality Head Computed Tomogra phy 09/14/2024 6:00 AM PLAYGROUND ATTENDANT Impressions 09/14/2024 10:22 AM PLAYGROUND ATTENDANT IMPRESSION: 1.No acute intracranial hemorrhage, midline shift, or significant mass effect. > Dictated by Jaswant Anaya MD (Weight Engineer) I, Luan Rouse MD have personally reviewed and interpreted this examination/study. > Interpreting Provider: Luan Rouse MD on 09/14/2024 10:22 AM Narrative 09/14/2024 10:22 AM PLAYGROUND ATTENDANT PROCEDURE: CT HEAD WO CONTRAST, DATE/TIME OF EXAM: 09/14/2024 6:00 AM, LOCATION [facility] INDICATION: R40.4: Transient alteration of awareness R29.810: [...] DATE/TIME OF EXAM: 09/14/2024 6:00 AM, LOCATION [facility] INDICATION: R40.4: Transient alteration of awareness R29.810: [...] effect. > Dictated by Jaswant Anaya MD (Weight Engineer) I, Luan Rouse MD have personally reviewed and interpreted this examination/study. > Interpreting Provider: Luan Rouse MD on 09/14/2024 10:22 AM Lauri Girard MD CT ORDERABLES * (ABNORMAL) CBC W/O DIFFERENTIAL (09/14/2024 2:15 AM PLAYGROUND ATTENDANT) Only the most recent of2 resultswithin the time period is included. WBC 11.4(H) 4.0 - 10.7 x10E9/L 09/14/2024 3:14 AM PLAYGROUND ATTENDANT [facility] RBC Count 4.80 3.90 - 5.20 x10E12/L 09/14/2024 3:14 AM PLAYGROUND ATTENDANT [facility] Hemoglobin 14.4 11.9 - 15.8 g/dL 09/14/2024 3:14 AM [facility] Hematocrit 43.4 34.8 - 46.1 % 09/14/2024 3:14 AM [facility] MCV 90.4 80.0 - 98.0 fL 09/14/2024 3:14 AM [facility] MCH 30.0 26.7 - 33.6 pg 09/14/2024 3:14 AM [facility] MCHC 33.2 31.7 - 36.3 g/dL 09/14/2024 3:14 AM [facility] RDW-CV 13.9 11.3 - 14.8 % 09/14/2024 3:14 AM [facility] Platelet Count 09/14/2024 3:14 AM [facility] Comment:Platelets clumped on slide but appears decreased. Recommend repeat with a sodium citrate blue top tube. MPV 09/14/2024 3:14 AM [facility] Comment:Unable to report Blood BLOOD SPECIMEN / Unknown Venipuncture / Unknown 09/14/2024 2:15 AM PLAYGROUND ATTENDANT 09/14/2024 2:40 AM PLAYGROUND ATTENDANT Nacho Clay DO LAB - HEMATOLOGY ORD ERABLES [facility] [address] [place] [address], [facility] [phone] * (ABNORMAL) BASIC METABOLIC PANEL (CALCIUM TOTAL) (09/14/2024 2:15 AM PLAYGROUND ATTENDANT) Only the most recent of2 resultswithin the time period is included. BUN 17 7 - 26 mg/dL 09/14/2024 3:07 AM [facility] Creatinine 0.90 0.56 - 0.96 mg/dL 09/14/2024 3:07 AM [facility] Sodium 142 136 - 145 mmol/L 09/14/2024 3:07 AM [facility] Potassium 3.4(L) 3.5 - 4.5 mmol/L 09/14/2024 3:07 AM [facility] Chloride 104 98 - 107 mmol/L 09/14/2024 3:07 AM [facility] CO2 23 22 - 29 mmol/L 09/14/2024 3:07 AM [facility] Glucose 205(H) 70 - 99 mg/dL 09/14/2024 3:07 AM [facility] Calcium 9.7 8.4 - 10.2 mg/dL 09/14/2024 3:07 AM [facility] Anion Gap 15 6 - 16 09/14/2024 3:07 AM [facility] BUN/Creatinine Ratio 19 7 - 23 09/14/2024 3:07 AM [facility] Osmolality Calculated 301(H) 275 - 295 mOsm/kg 09/14/2024 3:07 AM [facility] eGFR by CKD-EPI 63(L) >=90 mL/min/1.7 3 m2 09/14/2024 3:07 AM [facility] Blood BLOOD SPECIMEN / Unknown Venipuncture / Unknown 09/14/2024 2:15 AM PLAYGROUND ATTENDANT 09/14/2024 2:40 AM PLAYGROUND ATTENDANT Nacho Clay DO LAB - CHEMISTRY ORDE SHERIDAN [facility] [address] [place] [address], [place] [phone] * (ABNORMAL) GLUCOSE - POINT OF CARE (09/13/2024 10:46 PM PLAYGROUND ATTENDANT) Only the most recent of3 resultswithin the time period is included. [facility] Glucose WB/POC 133(H) 70 - 99 mg/dL 09/13/2024 10:47 PM [facility] Specimen Type Cap Fingerstick 2023 10:47 PM [facility] Blood BLOOD SPECIMEN / Unknown 09/13/2024 10:46 PM PLAYGROUND ATTENDANT 09/13/2024 10:47 PM PLAYGROUND ATTENDANT Lauri Girard MD LAB - POINT OF CARE ORDERABLES [facility] [address] [place] [address], [place] [phone] * (ABNORMAL) TROPONIN-I HIGH SENSITIVE (09/13/2024 1:22 PM PLAYGROUND ATTENDANT) [facility] Troponin I High Sensitive 18(H) <=14 ng/L 09/13/2024 2:08 PM PLAYGROUND ATTENDANT [facility] Blood BLOOD SPECIMEN / Unknown Venipuncture / Unknown 09/13/2024 1:22 PM PLAYGROUND ATTENDANT 09/13/2024 1:33 PM PLAYGROUND ATTENDANT Lauri Girard MD LAB - CHEMISTRY KAITLYNN SWARTZ Performing Organization Address City/[facility]/ZIP Co de Phone Number [facility] [address] [place] [address], [place] [phone] * (ABNORMAL) TROPONIN-I HIGH SENSITIVE REFLEX 1HOUR (09/13/2024 8:49 AM PLAYGROUND ATTENDANT) Troponin I High Sensitive 20(H) <=14 ng/L 09/13/2024 9:34 AM PLAYGROUND ATTENDANT [facility] Delta Troponin I HS 09/13/2024 9:34 AM [facility] Comment:Delta value intentio turner not calculated. Baseline to 1 hour specimen collection interval exceeded. Blood BLOOD SPECIMEN / Unknown Venipuncture / Unknown 09/13/2024 8:49 AM PLAYGROUND ATTENDANT 09/13/2024 8:55 AM PLAYGROUND ATTENDANT Nacho Clay DO LAB - CHEMISTRY KAITLYNN SWARTZ Performing Organization Address [facility]/ZIP Co de Phone Number [facility] [address] [place] [address], [place] [phone] * BLOOD TYPE VERIFICATION (09/13/2024 8:49 AM PLAYGROUND ATTENDANT) ABO Rh A POS 09/13/2024 9:4 9 AM PLAYGROUND ATTENDANT [facility] Blood Bank BLOOD SPECIMEN / Unknown Venipuncture / Unknown 09/13/2024 8:49 AM PLAYGROUND ATTENDANT 09/13/2024 9:05 AM PLAYGROUND ATTENDANT Nacho Clay DO LAB - BLOOD BANK [place]RAL Performing Organization Address City/[facility]/ZIP Co de Phone Number [facility] [address] [place] [address], [place] [phone] * (ABNORMAL) URINALYSIS W/MICROSCOPIC NO CULTURE (09/13/2024 8:45 AM PLAYGROUND ATTENDANT) Color UA Rowena(A) Straw, Yellow 09/13/2024 9:13 AM [facility] Clarity UA Cloudy(A) Clear 09/13/2024 9:13 AM [facility] Specific Imperial UA 1.034(H) 1.005 - 1.030 09/13/2024 9:13 AM [facility] pH UA 7.0 5.0 - 8.0 pH 09/13/2024 9:13 AM [facility] Protein UA 2+(A) Negative 09/13/2024 9:13 AM [facility] Glucose UA Negative Negative 09/13/2024 9:13 AM [facility] Ketone UA Negative Negative 09/13/2024 9:13 AM [facility] Bilirubin UA Negative Negative 09/13/2024 9:13 AM [facility] Blood UA 1+(A) Negative 09/13/2024 9:13 AM [facility] Nitrite UA Negative Negative 09/13/2024 9:13 AM [facility] Leukocyte Esterase Trace(A) Negative 09/13/2024 9:13 AM [facility] Urobilinogen UA 2.0(A) Negative mg/dL 09/13/2024 9:13 AM [facility] RBC UA 21-50(A) None Seen, 0-2, 3-5 /HPF 09/13/2024 9:13 AM [facility] WBC UA 6-10(A) None Seen, 0-5 /HPF 09/13/2024 9:13 AM [facility] Bacteria UA 3+(A) None /HPF 09/13/2024 9:13 AM [facility] Squamous Epithelial Cells UA 3-5 None Seen, 0-2, 3-5 /HPF 09/13/2024 9:13 AM [facility] Mucus UA 1+ /LPF 09/13/2024 9:13 AM [facility] Amorphous Crystals Few(A) None /HPF 09/13/2024 9:13 AM [facility] Urine URINE SPECIMEN OBTAINED BY CLEAN CATCH PROCEDURE / Unknown Collection / Unknown 09/13/2024 8:45 AM PLAYGROUND ATTENDANT 09/13/2024 8:55 AM PLAYGROUND ATTENDANT Narrative [facility] - 09/13/2024 9:13 AM PLAYGROUND ATTENDANT Nacho Clay DO LAB - URINALYSIS ORD ERABLES Performing Organization Address City/[facility]/ZIP Co de Phone Number [facility] [address] [place] [address], [facility] [phone] * (ABNORMAL) HEMOGLOBIN A1C (09/13/2024 6:00 AM PLAYGROUND ATTENDANT) Hemoglobin A1c 6.8(H) <=5.6 % 09/14/2024 9:53 AM [facility] Estimated Average Glucose 148 mg/dL 09/14/2024 9:53 AM [facility] Comment: HbA1c Interpretation: Normal : < 5.7% Pre-diabetes: 5.7-6.4% Diabetes: Equal to or greater than 6.5% Test results diagnostic of diabetes should be repeated for confirmation. Treatment target values recommended by ADA and other clinical organizations should be used to evaluate metabolic control in patients. Reference: [place] [employer], Standards of Care in Diabetes -2020 In patients 70 years and older consider HbA1c target range of 7.0-7.5% (Reference: Neel Galvez et al. JAMDA. 2012) The Sebia assay for the measurement of HbA1c is a National Glycohemoglobin Standardization Program (NGSP) certified method. Blood BLOOD SPECIMEN / Unknown Venipuncture / Unknown 09/13/2024 6:00 AM PLAYGROUND ATTENDANT 09/13/2024 8:53 PM PLAYGROUND ATTENDANT Kareem Bagley MD LAB - CHEMISTRY KAITLYNN SWARTZ Performing Organization Address City/[facility]/ZIP Co de Phone Number [facility] [address] [place] [address], [place] [phone] * (ABNORMAL) LIPID PROFILE (09/13/2024 6:00 AM PLAYGROUND ATTENDANT) Cholesterol Total 170 <200 mg/dL 09/13/2024 6:49 AM [facility] HDL 55 >40 mg/dL 09/13/2024 6:49 AM [facility] Comment: ATP III Classification of HDL Cholesterol: <40 mg/dL: Considered a major risk factor. >60 mg/dL: Considered a negative risk factor. LDL Calculated 82 <100 mg/dL 09/13/2024 6:49 AM [facility] Comment: ATP III Classification of LDL Cholesterol: <100 mg/dL: Optimal 100 - 129 mg/dL: Near Optimal/Above Optimal 130 - 159 mg/dL: Borderline High 160 - 189 mg/dL: High >190 mg/dL: Very High Triglycerides 163(H) <150 mg/dL 09/13/2024 6:49 AM [facility] Comment: ATP III Classification of Triglycerides: <150 mg/dL: Normal 150 - 199 mg/dL: Borderline High 200 - 400 mg/dL: High >500 mg/dL: Very High Blood BLOOD SPECIMEN / Unknown Venipuncture / Unknown 09/13/2024 6:00 AM PLAYGROUND ATTENDANT 09/13/2024 6:27 AM PLAYGROUND ATTENDANT Nacho Clay DO LAB - CHEMISTRY KAITLYNN SWARTZ [address] [address], [place] [phone] * TROPONIN-I HIGH SENSITIVE BASELINE + 1HR (09/12/2024 7:10 PM PLAYGROUND ATTENDANT) Pathologist [facility] Troponin I High Sensitive 12 <=14 ng/L 09/12/2024 7:49 PM PLAYGROUND ATTENDANT [facility] Blood BLOOD SPECIMEN / Unknown Venipuncture / Unknown 09/12/2024 7:10 PM PLAYGROUND ATTENDANT 09/12/2024 7:30 PM PLAYGROUND ATTENDANT Nacho Clay DO LAB - CHEMISTRY KAITLYNN SWARTZ [address] [address], [place] [phone] * (ABNORMAL) TSH REFLEX FREE T4 (09/12/2024 7:10 PM PLAYGROUND ATTENDANT) TSH 24.558(H) 0.350 - 4.940 uIU/mL 09/12/2024 9:14 PM PLAYGROUND ATTENDANT [facility] Blood BLOOD SPECIMEN / Unknown Venipuncture / Unknown 09/12/2024 7:10 PM PLAYGROUND ATTENDANT 09/12/2024 7:30 PM PLAYGROUND ATTENDANT Lauri Girard MD LAB - CHEMISTRY KAITLYNN SWARTZ [address] [address], [place] [phone] * PHOSPHORUS BLOOD (09/12/2024 7:10 PM PLAYGROUND ATTENDANT) Phosphorus 3.2 2.9 - 5.1 mg/dL 09/12/2024 7:50 PM PLAYGROUND ATTENDANT [facility] Blood BLOOD SPECIMEN / Unknown Venipuncture / Unknown 09/12/2024 7:10 PM PLAYGROUND ATTENDANT 09/12/2024 7:30 PM PLAYGROUND ATTENDANT Lauri Girard MD LAB - CHEMISTRY KAITLYNN SWARTZ Performing Organization Address City/[facility]/ZIP Co de Phone Number [address] [address], [place] [phone] * MAGNESIUM BLOOD (09/12/2024 7:10 PM PLAYGROUND ATTENDANT) Magnesium 1.8 1.6 - 2.6 mg/dL 09/12/2024 7:50 PM PLAYGROUND ATTENDANT [facility] Blood BLOOD SPECIMEN / Unknown Venipuncture / Unknown 09/12/2024 7:10 PM PLAYGROUND ATTENDANT 09/12/2024 7:30 PM PLAYGROUND ATTENDANT Lauri Girard MD LAB - CHEMISTRY KAITLYNN SWARTZ Performing Organization Address City/[facility]/ZIP Co de Phone Number [address] [address], [place] [phone] * T4 FREE (09/12/2024 7:10 PM PLAYGROUND ATTENDANT) T4 Free 0.7 0.7 - 1.5 ng/dL 09/12/2024 9:47 PM PLAYGROUND ATTENDANT [facility] Blood BLOOD SPECIMEN / Unknown Venipuncture / Unknown 09/12/2024 7:10 PM PLAYGROUND ATTENDANT 09/12/2024 7:30 PM PLAYGROUND ATTENDANT Lauri Girard MD LAB - CHEMISTRY KAITLYNN CHILANGOTAMIE Performing Organization Address City/[facility]/ZIP Co de Phone Number [facility] [address] [place] [address], [place] [phone] * EKG 12-LEAD (09/12/2024 7:04 PM PLAYGROUND ATTENDANT) Ventricular Rate 97 BPM [facility] MUSE Atrial Rate 97 BPM [facility] MUSE P-R Interval 186 ms [facility] M[facility] QRS Duration ms 106 ms [facility] MUSE Q-T Interval ms 388 ms [facility] MUSE QTC Calculation (Bezet) 492 ms [facility]USE Calculated P [place] 60 degrees SL MUSE Calculated R [place] -29 degrees SL MUSE Calculated T [place] 94 degrees SL MUSE Interpretation EKG NORMAL SINUS RHYTHM MINIMAL VOLTAGE CRITERIA FOR LVH, MAY BE NORMAL VARIANT ( Baldemar product ) ANTEROSEPTAL INFARCT , AGE UNDETERMINED ABNORMAL ECG NO PREVIOUS ECGS AVAILABLE Confirmed by JEREMIAH CANNON MD ([id number]) on 09/15/2024 2:33:28 PM [facility] MUSE 09/12/2024 7:04 PM PLAYGROUND ATTENDANT 09/15/2024 2:33 PM PLAYGROUND ATTENDANT Nacho Clay DO ECG ORDERABLES Performing Organization Address [facility] Co de Phone Number [facility] M[facility] * XR Chest 1Vw Portable (09/12/2024 6:54 PM PLAYGROUND ATTENDANT) Anatomical Region Laterality Modality Chest Digital Radiogra phy 09/12/2024 7:53 PM PLAYGROUND ATTENDANT Narrative 09/12/2024 8:45 PM PLAYGROUND ATTENDANT PROCEDURE: XR CHEST 1VW PORTABLE, DATE/TIME OF EXAM: 09/12/2024 7:05 PM, LOCATION [facility] INDICATION: R47.01: Aphasia R40.4: Transient alteration of [...] visualized. Report dictated by Maikel Marr MD (president ergonomic consulting). Klarissa Verma MD have personally reviewed and interpreted this examination/study. > Interpreting Provider: Klarissa Munoz MD on 09/12/2024 8:45 PM Procedure Note Klarissa Munoz MD - 09/12/2024 PROCEDURE: XR CHEST 1VW PORTABLE, DATE/TIME OF EXAM: 09/12/2024 7:05PM, LOCATION [facility] INDICATION: R47.01: Aphasia R40.4: Transient alteration of [...] visualized. Report dictated by Maikel Marr MD (president ergonomic consulting). Klarissa Verma MD have personally reviewed and interpreted this examination/study. > Interpreting Provider: Klarissa Munoz MD on 09/12/2024 8:45 PM Nacho Clay DO DIAGNOSTIC IMAGING O RDERABLES * CT ANGIO BRAIN NECK STROKE (09/12/2024 6:42 PM PLAYGROUND ATTENDANT) Anatomical Region Laterality Modality Head Computed Tomogra phy 09/12/2024 6:57 PM PLAYGROUND ATTENDANT Impressions 09/12/2024 7:19 PM PLAYGROUND ATTENDANT IMPRESSION: 1. No acute intracranial hemorrhage. 2. No large arterial occlusions or significant stenoses identified in the head or neck. Viz.AI was used for large vessel occlusion detection. > Interpreting Provider: Milagros Flores MD on 09/12/2024 7:19 PM Narrative 09/12/2024 7:19 PM PLAYGROUND ATTENDANT PROCEDURE: CT ANGIO BRAIN NECK STROKE, DATE/TIME OF EXAM: 09/12/2024 6:43 PM, LOCATION [facility] INDICATION: Code Stroke ADDITIONAL CLINICAL INFORMATION: Ordering [...] STROKE, DATE/TIME OF EXAM: :43 PM, LOCATION [facility] INDICATION: Code Stroke ADDITIONAL CLINICAL INFORMATION: Ordering [...] Nacho Clay DO CT ORDERABLES * PT-INR [facility] (09/12/2024 6:39 PM PLAYGROUND ATTENDANT) Pathologist [facility] PT 12.9 12.1 - 14.8 Seconds 09/12/2024 7:05 PM PLAYGROUND ATTENDANT [facility] INR 1.0 See Comment 09/12/2024 7:05 PM [facility] Comment:The suggested therap eutic range for standard coumadin (warfarin) therapy is an INR of 2.0-3.0. For high-risk patients (Mechanical Mitral Valve Prosthesis, etc.), the suggested prophylactic therapeutic range is an INR of 2.5-3.5. Blood BLOOD SPECIMEN / Unknown Venipuncture / Unknown 09/12/2024 6:39 PM PLAYGROUND ATTENDANT 09/12/2024 6:45 PM PLAYGROUND ATTENDANT Nacho Clay DO LAB - COAGULATION OR DERABLES [facility] [address] [place] [address], [place] [phone] * TYPE + SCREEN PANEL (09/12/2024 6:39 PM PLAYGROUND ATTENDANT) [facility] Antibody Screen NEG 7:42 PM PLAYGROUND ATTENDANT [facility] ABO Rh A POS 09/12/2024 7:42 PM PLAYGROUND ATTENDANT [facility] Blood Bank BLOOD SPECIMEN / Unknown Venipuncture / Unknown 09/12/2024 6:39 PM PLAYGROUND ATTENDANT 09/12/2024 6:50 PM PLAYGROUND ATTENDANT Nacho Clay DO LAB - BLOOD BANK ORD ERABLES [facility] [address] [place] [address], [place] [phone] * CBC W AUTO DIFFERENTIAL (09/12/2024 6:39 PM PLAYGROUND ATTENDANT) [facility] WBC 6.5 4.0 - 10.7 x10E9/L 09/12/2024 7:23 PM [facility] RBC Count 4.29 3.90 - 5.20 x10E12/L 09/12/2024 7:23 PM [facility] Hemoglobin 12.9 11.9 - 15.8 g/dL 09/12/2024 7:23 PM [facility] Hematocrit 38.5 34.8 - 46.1 % 09/12/2024 7:23 PM [facility] MCV 89.7 80.0 - 98.0 fL 09/12/2024 7:23 PM [facility] MCH 30.1 26.7 - 33.6 pg 09/12/2024 7:23 PM [facility] MCHC 33.5 31.7 - 36.3 g/dL 09/12/2024 7:23 PM [facility] RDW-CV 13.8 11.3 - 14.8 % 09/12/2024 7:23 PM [facility] Platelet Count 09/12/2024 7:23 PM [facility] Comment:Platelets clumped on slide but appears adequate. Recommend repeat with a sodium citrate blue top tube. MPV 09/12/2024 7:23 PM [facility] Comment:Unable to report Neutrophil % 68.5 41.0 - 74.0 % 09/12/2024 7:23 PM [facility] Lymphocyte % 21.5 17.0 - 47.0 % 09/12/2024 7:23 PM [facility] Monocyte % 7.3 3.0 - 11.0 % 09/12/2024 7:23 PM [facility] Eosinophil % 2.2 0.0 - 7.0 % 09/12/2024 7:23 PM [facility] Basophil % 0.3 0.0 - 1.6 % 09/12/2024 7:23 PM [facility] Immature Granulocytes % 0.2 0.0 - 1.0 % 09/12/2024 7:23 PM [facility] Neutrophil Absolute 4.45 1.60 - 7.50 x10E9/L 09/12/2024 7:23 PM [facility] Lymphocyte Absolute 1.39 1.00 - 4.40 x10E9/L 09/12/2024 7:23 PM [facility] Monocyte Absolute 0.47 0.15 - 1.00 x10E9/L 09/12/2024 7:23 PM [facility] Eosinophil Absolute 0.14 0.00 - 0.60 x10E9/L 09/12/2024 7:23 PM [facility] Basophil Absolute 0.02 0.00 - 0.13 x10E9/L 09/12/2024 7:23 PM [facility] Blood BLOOD SPECIMEN / Unknown Venipuncture / Unknown 09/12/2024 6:39 PM [employer] 09/12/2024 6:45 PM [employer] Nacho Clay DO LAB - HEMATOLOGY ORD ERABLES [facility] [address] [place] [address], [facility] [phone] * (ABNORMAL) COMPREHENSIVE METABOLIC PANEL (09/12/2024 6:39 PM PLAYGROUND ATTENDANT) BUN 20 7 - 26 mg/dL 09/12/2024 7:11 PM [facility] Creatinine 0.85 0.56 - 0.96 mg/dL 09/12/2024 7:11 PM [facility] Sodium 142 136 - 145 mmol/L 09/12/2024 7:11 PM [facility] Potassium 4.3 3.5 - 4.5 mmol/L 09/12/2024 7:11 PM [facility] Chloride 107 98 - 107 mmol/L 09/12/2024 7:11 PM [facility] CO2 26 22 - 29 mmol/L 09/12/2024 7:11 PM [facility] Glucose 152(H) 70 - 99 mg/dL 09/12/2024 7:11 PM [facility] Calcium 9.2 8.4 - 10.2 mg/dL 09/12/2024 7:11 PM [facility] Protein Total 7.2 6.0 - 8.3 g/dL 09/12/2024 7:11 PM [facility] Albumin 4.1 3.4 - 5.0 g/dL 09/12/2024 7:11 PM [facility] Bilirubin Total 0.6 0.2 - 1.2 mg/dL 09/12/2024 7:11 PM [facility] Alkaline Phosphatase 76 40 - 150 U/L 09/12/2024 7:11 PM [facility] ALT 14 5 - 55 U/L 09/12/2024 7:11 PM [facility] AST 18 5 - 34 U/L 09/12/2024 7:11 PM [facility] Anion Gap 9 6 - 16 09/12/2024 7:11 PM [facility] BUN/Creatinine Ratio 24(H) 7 - 23 09/12/2024 7:11 PM [facility] Osmolality Calculated 300(H) 275 - 295 mOsm/kg 09/12/2024 7:11 PM [facility] Albumin/Globulin Ratio 1.3 1.1 - 2.3 09/12/2024 7:11 PM [facility] eGFR by CKD-EPI 68(L) >=90 mL/min/1.7 3 m2 09/12/2024 7:11 PM [facility] Blood BLOOD SPECIMEN / Unknown Venipuncture / Unknown 09/12/2024 6:39 PM PLAYGROUND ATTENDANT 09/12/2024 6:45 PM PLAYGROUND ATTENDANT Nacho Clay DO LAB - CHEMISTRY KAITLYNN SWARTZ [facility] Organization Address City/State/[facility] Co de Phone Number [facility] [address] [place] [phone] [phone] * CREATININE - POCT INTERFACED (09/12/2024 6:36 PM PLAYGROUND ATTENDANT) Creatinine POCT 0.54 0.30 - 1.30 mg/dL 09/12/2024 6:37 PM [facility] eGFR >90 >=90 mL/min/1.7 3 m2 09/12/2024 6:37 PM [facility] Blood BLOOD SPECIMEN / Unknown 09/12/2024 6:36 PM PLAYGROUND ATTENDANT 09/12/2024 6:37 PM PLAYGROUND ATTENDANT Nacho Clay DO LAB - POINT OF CARE ORDERABLES Performing Organization Address City/[facility]/ZIP Co de Phone Number [address] [phone], [facility] [phone] * INR WHOLE BLOOD - POINT OF CARE (IP) STROKE (09/12/2024 6:33 PM PLAYGROUND ATTENDANT) INR 0.9 0.9 - 1.2 09/12/2024 6:36 PM PLAYGROUND ATTENDANT [facility] Device [id number] 09/12/2024 6:36 PM PLAYGROUND ATTENDANT [facility] Damage Assessor ID [id number] 09/12/2024 6:36 PM PLAYGROUND ATTENDANT [facility] Blood BLOOD SPECIMEN / Unknown 09/12/2024 6:33 PM PLAYGROUND ATTENDANT 09/12/2024 6:36 PM PLAYGROUND ATTENDANT Nacho Clay DO LAB - POINT OF CARE ORDERABLES Performing Organization Address [facility]/ZIP Co de Phone Number [address] [phone], [facility] [phone] * CT BRAIN - Stroke (09/12/2024 6:28 PM PLAYGROUND ATTENDANT) Anatomical Region Laterality Modality Head Computed Tomogra phy 09/12/2024 6:30 PM PLAYGROUND ATTENDANT Impressions 09/12/2024 6:50 PM PLAYGROUND ATTENDANT IMPRESSION: 1.No acute intracranial hemorrhage. 2.Please note [...] 09/12/2024 6:50 PM Narrative 09/12/2024 6:50 PM PLAYGROUND ATTENDANT PROCEDURE: CT BRAIN STROKE, DATE/TIME OF EXAM: 09/12/2024 6:29 PM, LOCATION [facility] INDICATION: Code Stroke EXAMINATION: Computed tomography (CT) [...] DATE/TIME OF EXAM: 09/12/2024 6:29 PM, LOCATION [facility] INDICATION: Code Stroke EXAMINATION: Computed tomography (CT) [...] 6:45 PM 09/14/2024 1:52 PM Care Teams Quill Machine Tender Relationship Specialty Start Date End Date Brianne Ko APRN-CNP [id number] [id number] PCP - General Nurse Practitioner Family 09/12/24
--- OUTSIDE RECORDS SUMMARY | 2024-11-26 12:18 | XMS_ITS | Clinical Summary ---
Author Organization [facility] Address [address] [place] [address] Care Team Providers Care Station Examiner Name Role Phone Brianne Ko SANTOSH-BARRERA Primary Care Provider [phone] Source Comments [employer] [facility],non-owned Affiliates and Associated Physician Practices is amultiple site organization consisting of ambulatory clinics and hospital sitesin [place], [place], [place] and [place]. This disclosure is being madepursuant to the Care Everywhere program and may not contain all information available regarding this patient. Last updated 18.[employer] [facility] Allergies No known active allergies Medications * [...] Team Description 09/16/2024 Telephone Transitional Care at [facility] [address] [place] [address] Karly Upton RNinternet marketing specialist 09/13/2024 Travel 09/12/2024 6:24 PM STAFFING EXECUTIVE - 09/14/2024 12:47 PM STAFFING EXECUTIVE Hospital Encounter [facility] EMERGENCY DEPARTMENT [address] [place] [address] Nacho Clay, Lauri Pino MD Aphasia (Primary [...] Comments Blood Pressure 172/72 09/14/2024 11:16 AM STAFFING EXECUTIVE Pulse 88 09/14/2024 11:17 AM STAFFING EXECUTIVE Temperature 36.7 C (98 F) 09/13/2024 10:47 PM STAFFING EXECUTIVE Respiratory Rate 18 09/14/2024 11:17 AM STAFFING EXECUTIVE Oxygen Saturation 95% 09/14/2024 11:17 AM STAFFING EXECUTIVE Inhaled Oxygen Concentration - - Weight 88.9 kg (196 lb) 09/13/2024 9:36 AM STAFFING EXECUTIVE Height 162.6 cm (5' 4 ) 09/13/2024 8:32 PM STAFFING EXECUTIVE Body Mass Index 37.03 09/13/2024 9:36 AM STAFFING EXECUTIVE Plan of Treatment Health Maintenance Due Date [...] complete this topic MENINGOCOCCAL (Group B) VACCINE SHARED DECISION-MAKING Aged Out No longer eligible based on patient's age to complete this topic MENINGOCOCCAL GROUPS A/C/Y/W VACCINE Aged Out No longer eligible b ased on patient's age to complete this topic Procedures Procedure Name Priority Date/Time Associated Diagnosis Comments CARDIAC EKG ORDER 09/14/2024 1:2 [address] HEAD WO CONTRAST Routine 09/14/2024 6 :00 AM STAFFING EXECUTIVE Transient alteration of awareness Facial droop CBC W/O DIFFERENTIAL STAT 09/14/2024 2:15 AM STAFFING EXECUTIVE BASIC METABOLIC PANEL (CALCIUM TOTAL) STAT 09/14/2024 2:15 AM STAFFING EXECUTIVE GLUCOSE - POINT OF CARE Routine 09/13/2024 10:46 PM STAFFING EXECUTIVE GLUCOSE - POINT OF CARE Routine 09/13/2024 5:46 PM STAFFING EXECUTIVE TROPONIN-I HIGH SENSITIVE STAT 09/13/2024 1:22 PM STAFFING EXECUTIVE Aphasia GLUCOSE - POINT OF CARE Routine 09/13/2024 12:19 PM STAFFING EXECUTIVE BLOOD TYPE VERIFICATION STAT 09/13/2024 8:49 AM STAFFING EXECUTIVE TROPONIN-I HIGH SENSITIVE REFLEX 1HOUR Timed 09/13/2024 8:49 AM STAFFING EXECUTIVE URINALYSIS W/MICROSCOPIC NO CULTURE STAT 09/13/2024 8:45 AM STAFFING EXECUTIVE HEMOGLOBIN A1C Add on 09/13/2024 6:00 AM STAFFING EXECUTIVE LIPID PROFILE STAT 09/13/2024 6:00 AM STAFFING EXECUTIVE CBC W/O DIFFERENTIAL STAT 09/13/2024 6:00 AM STAFFING EXECUTIVE BASIC METABOLIC PANEL (CALCIUM TOTAL) STAT 09/13/2024 6:00 AM STAFFING EXECUTIVE T4 FREE Routine 09/12/2024 7:10 PM STAFFING EXECUTIVE Aphasia Transient alteration of awareness Facial droop Hypothyroidism, unspecified type TSH REFLEX FREE T4 Routine 09/12/2024 7: 10 PM STAFFING EXECUTIVE Aphasia Transient alteration of awareness Facial droop Hypothyroidism, unspecified type PHOSPHORUS BLOOD Routine 09/12/2024 7:10 PM STAFFING EXECUTIVE Aphasia Transient alteration of awareness MAGNESIUM BLOOD Routine 09/12/2024 7:10 PM STAFFING EXECUTIVE Aphasia Transient alteration of awareness TROPONIN-I HIGH SENSITIVE BASELINE + 1HR STAT 09/12/2024 7:10 PM STAFFING EXECUTIVE EKG 12-LEAD STAT 09/12/2024 7:04 PM STAFFING EXECUTIVE Aphasia Transient alteration of awareness XR CHEST 1VW PORTABLE STAT 09/12/2024 6:54 PM STAFFING EXECUTIVE Aphasia Transient alteration of awareness CT ANGIO BRAIN NECK STROKE STAT 09/12/2024 6:42 PM STAFFING EXECUTIVE Aphasia Transient alteration of awareness TYPE + SCREEN PANEL STAT 09/12/2024 6 :39 PM STAFFING EXECUTIVE PT-INR [facility] STAT 09/12/2024 6:39 PM STAFFING EXECUTIVE COMPREHENSIVE METABOLIC PANEL STAT 09/12/2024 6:39 PM STAFFING EXECUTIVE CBC W AUTO DIFFERENTIAL STAT 09/12/2024 6:39 PM STAFFING EXECUTIVE CREATININE - POCT INTERFACED Routine 09/12/2024 6:36 PM STAFFING EXECUTIVE INR WHOLE BLOOD - POINT OF CARE (IP) STROKE Routine 09/12/2024 6:[address] BRAIN STROKE STAT 09/12/2024 6:28 PM STAFFING EXECUTIVE Aphasia Transient alteration of awareness from Last 3 Months Results * CARDIAC EKG ORDER (09/14/2024 1:29 PM STAFFING EXECUTIVE) Narrative 09/14/2024 1:29 PM STAFFING EXECUTIVE Ordered by an unspecified provider. Scanned Document CARDIAC SERVICES ORD ERABLES * CT Head Wo Contrast (09/14/2024 6:00 AM STAFFING EXECUTIVE) Anatomical Region Laterality Modality Head Computed Tomogra phy 09/14/2024 6:00 AM STAFFING EXECUTIVE Impressions 09/14/2024 10:22 AM STAFFING EXECUTIVE IMPRESSION: 1.No acute intracranial hemorrhage, midline shift, or significant mass effect. > Dictated by Jaswant Anaya MD (Electric Meter Reader) I, Luan Roues MD have personally reviewed and interpreted this examination/study. > Interpreting Provider: Luan Rouse MD on 09/14/2024 10:22 AM Narrative 09/14/2024 10:22 AM STAFFING EXECUTIVE PROCEDURE: CT HEAD WO CONTRAST, DATE/TIME OF EXAM: 09/14/2024 6:00 AM, LOCATION [facility] INDICATION: R40.4: Transient alteration of awareness [...] DATE/TIME OF EXAM: 09/14/2024 6:00 AM, LOCATION [facility] INDICATION: R40.4: Transient alteration of awareness [...] effect. > Dictated by Jaswant Anaya MD (Electric Meter Reader) I, Luan Rouse MD have personally reviewed and interpreted this examination/study. > Interpreting Provider: Luan Rouse MD on 09/14/2024 10:22 AM Lauri Girard MD CT ORDERABLES * (ABNORMAL) CBC W/O DIFFERENTIAL (09/14/2024 2:15 AM STAFFING EXECUTIVE) Only the most recent of2 resultswithin the time period is included. WBC 11.4(H) 4.0 - 10.7 x10E9/L 09/14/2024 3:14 AM [facility] RBC Count 4.80 3.90 - 5.20 x10E12/L 09/14/2024 3:14 AM [facility] Hemoglobin 14.4 11.9 - 15.8 g/dL 09/14/2024 3:14 AM [facility] Hematocrit 43.4 34.8 - 46.1 % 09/14/2024 3:14 AM [facility] MCV 90.4 80.0 - 98.0 fL 09/14/2024 3:14 AM [facility] MCH 30.0 26.7 - 33.6 pg 09/14/2024 3:14 AM [facility] MCHC 33.2 31.7 - 36.3 g/dL 09/14/2024 3:14 AM [facility] RDW-CV 13.9 11.3 - 14.8 % 09/14/2024 3:14 AM [facility] Platelet Count 09/14/2024 3:14 AM [facility] Comment:Platelets clumped on slide but appears decreased. Recommend repeat with a sodium citrate blue top tube. MPV 09/14/2024 3:14 AM [facility] Comment:Unable to report Blood BLOOD SPECIMEN / Unknown Venipuncture / Unknown 09/14/2024 2:15 AM STAFFING EXECUTIVE 09/14/2024 2:40 AM [facility] Nacho Clay DO LAB - HEMATOLOGY ORD ERABLES [facility] [address] [place] [address], [facility] [phone] * (ABNORMAL) BASIC METABOLIC PANEL (CALCIUM TOTAL) (09/14/2024 2:15 AM STAFFING EXECUTIVE) Only the most recent of2 resultswithin the time period is included. Pathologist [facility] BUN 17 7 - 26 mg/dL 09/14/2024 3:07 AM [facility] Creatinine 0.90 0.56 - 0.96 mg/dL 09/14/2024 3:07 AM [facility] Sodium 142 136 - 145 mmol/L 09/14/2024 3:07 AM [facility] Potassium 3.4(L) 3.5 - 4.5 mmol/L 09/14/2024 3:07 AM [facility] Chloride 104 98 - 107 mmol/L 09/14/2024 3:07 AM [facility] CO2 23 22 - 29 mmol/L 09/14/2024 3:07 AM [facility] Glucose 205(H) 70 - 99 mg/dL 09/14/2024 3:07 AM [facility] Calcium 9.7 8.4 - 10.2 mg/dL 09/14/2024 3:07 AM [facility] Anion Gap 15 6 - 16 09/14/2024 3:07 AM [facility] BUN/Creatinine Ratio 19 7 - 23 09/14/2024 3:07 AM [facility] Osmolality Calculated 301(H) 275 - 295 mOsm/kg 09/14/2024 3:07 AM [facility] eGFR by CKD-EPI 63(L) >=90 mL/min/1.7 3 m2 09/14/2024 3:07 AM [facility] Blood BLOOD SPECIMEN / Unknown Venipuncture / Unknown 09/14/2024 2:15 AM STAFFING EXECUTIVE 09/14/2024 2:40 AM [facility] Nacho Clay DO LAB - CHEMISTRY KAITLYNN SWARTZ Performing Organization Address City/State/[facility] Co de Phone Number [facility] [address] [place] [address], [facility] [phone] * (ABNORMAL) GLUCOSE - POINT OF CARE (09/13/2024 10:46 PM STAFFING EXECUTIVE) Only the most recent of3 resultswithin the time period is included. Glucose WB/POC 133(H) 70 - 99 mg/dL 09/13/2024 10:47 PM [facility] Specimen Type Cap Fingerstick 2023 10:47 PM [facility] Blood BLOOD SPECIMEN / Unknown 09/13/2024 10:46 PM STAFFING EXECUTIVE 09/13/2024 10:47 PM STAFFING EXECUTIVE Lauri Girard MD LAB - POINT OF CARE ORDERABLES Performing Organization Address City/[facility]/ZIP Co de Phone Number [address] [address], [place] [phone] * (ABNORMAL) TROPONIN-I HIGH SENSITIVE (09/13/2024 1:22 PM STAFFING EXECUTIVE) Pathologist [facility] Troponin I High Sensitive 18(H) <=14 ng/L 09/13/2024 2:08 PM STAFFING EXECUTIVE [facility] Blood BLOOD SPECIMEN / Unknown Venipuncture / Unknown 09/13/2024 1:22 PM STAFFING EXECUTIVE 09/13/2024 1:33 PM STAFFING EXECUTIVE Lauri Girard MD LAB - CHEMISTRY ORDAshly SWARTZ Performing Organization Address [facility] Co de Phone Number [address] [address], [place] [phone] * (ABNORMAL) TROPONIN-I HIGH SENSITIVE REFLEX 1HOUR (09/13/2024 8:49 AM STAFFING EXECUTIVE) [facility] Troponin I High Sensitive 20(H) <=14 ng/L 09/13/2024 9:34 AM STAFFING EXECUTIVE [facility] Delta Troponin I HS 09/13/2024 9:34 AM STAFFING EXECUTIVE [facility] Comment:Delta value intentio turner not calculated. Baseline to 1 hour specimen collection interval exceeded. Blood BLOOD SPECIMEN / Unknown Venipuncture / Unknown 09/13/2024 8:49 AM STAFFING EXECUTIVE 09/13/2024 8:55 AM STAFFING EXECUTIVE Nacho Clay DO LAB - CHEMISTRY KAITLYNN SWARTZ Performing Organization Address [facility]/ZIP Co de Phone Number [address] [address], [place] [phone] * BLOOD TYPE VERIFICATION (09/13/2024 8:49 AM STAFFING EXECUTIVE) Pathologist [facility] ABO Rh A POS 09/13/2024 9:4 9 AM [facility] LAB Blood Bank BLOOD SPECIMEN / Unknown Venipuncture / Unknown 09/13/2024 8:49 AM STAFFING EXECUTIVE 09/13/2024 9:05 AM STAFFING EXECUTIVE Nacho Clay DO LAB - BLOOD BANK ORD ERABLES Performing Organization Address [facility]/ZIP Co de Phone Number [facility] [address] [place] [address], [facility] [phone] * (ABNORMAL) URINALYSIS W/MICROSCOPIC NO CULTURE (09/13/2024 8:45 AM STAFFING EXECUTIVE) Color UA Rowena(A) Straw, Yellow 09/13/2024 9:13 AM [facility] Clarity UA Cloudy(A) Clear 09/13/2024 9:13 AM [facility] Specific [place] UA 1.034(H) 1.005 - 1.030 09/13/2024 9:13 AM [facility] pH UA 7.0 5.0 - 8.0 pH 09/13/2024 9:13 AM [facility] Protein UA 2+(A) Negative 09/13/2024 9:13 AM [facility] Glucose UA Negative Negative 09/13/2024 9:13 AM [facility] Ketone UA Negative Negative 09/13/2024 9:13 AM [facility] Bilirubin UA Negative Negative 09/13/2024 9:13 AM [facility] Blood UA 1+(A) Negative 09/13/2024 9:13 AM [facility] Nitrite UA Negative Negative 09/13/2024 9:13 AM [facility] Leukocyte Esterase Trace(A) Negative 09/13/2024 9:13 AM [facility] Urobilinogen UA 2.0(A) Negative mg/dL 09/13/2024 9:13 AM [facility] RBC UA 21-50(A) None Seen, 0-2, 3-5 /HPF 09/13/2024 9:13 AM [facility] WBC UA 6-10(A) None Seen, 0-5 /HPF 09/13/2024 9:13 AM [facility] Bacteria UA 3+(A) None /HPF 09/13/2024 9:13 AM [facility] Squamous Epithelial Cells UA 3-5 None Seen, 0-2, 3-5 /HPF 09/13/2024 9:13 AM [facility] Mucus UA 1+ /LPF 09/13/2024 9:13 AM [facility] Amorphous Crystals Few(A) None /HPF 09/13/2024 9:13 AM [facility] Urine URINE SPECIMEN OBTAINED BY CLEAN CATCH PROCEDURE / Unknown Collection / Unknown 09/13/2024 8:45 AM STAFFING EXECUTIVE 09/13/2024 8:55 AM STAFFING EXECUTIVE Narrative [facility] - 09/13/2024 9:13 AM STAFFING EXECUTIVE Nacho Clay DO LAB - URINALYSIS ORD ERABLES [facility] [address] [place] [address], [facility] [phone] * (ABNORMAL) HEMOGLOBIN A1C (09/13/2024 6:00 AM [facility]) Hemoglobin A1c 6.8(H) <=5.6 % 09/14/2024 9:53 AM [facility] Estimated Average Glucose 148 mg/dL 09/14/2024 9:53 AM [facility] Comment: HbA1c Interpretation: Normal : < 5.7% Pre-diabetes: 5.7-6.4% Diabetes: Equal to or greater than 6.5% Test results diagnostic of diabetes should be repeated for confirmation. Treatment target values recommended by ADA and other clinical organizations should be used to evaluate metabolic control in patients. Reference: [place] [employer], Standards of Care in Diabetes -2020 In patients 70 years and older consider HbA1c target range of 7.0-7.5% (Reference: Neel Galvez et al. JAMDA. 2012) The Sebia assay for the measurement of HbA1c is a National Glycohemoglobin Standardization Program (NGSP) certified method. Blood BLOOD SPECIMEN / Unknown Venipuncture / Unknown 09/13/2024 6:00 AM STAFFING EXECUTIVE 09/13/2024 8:53 PM STAFFING EXECUTIVE Kareem Bagley MD LAB - CHEMISTRY KAITLYNN SWARTZ [facility] [address] [place] [address], [place] [phone] * (ABNORMAL) LIPID PROFILE (09/13/2024 6:00 AM STAFFING EXECUTIVE) Cholesterol Total 170 <200 mg/dL 09/13/2024 6:49 AM [facility] HDL 55 >40 mg/dL 09/13/2024 6:49 AM [facility] Comment: ATP III Classification of HDL Cholesterol: <40 mg/dL: Considered a major risk factor. >60 mg/dL: Considered a negative risk factor. LDL Calculated 82 <100 mg/dL 09/13/2024 6:49 AM [facility] Comment: ATP III Classification of LDL Cholesterol: <100 mg/dL: Optimal 100 - 129 mg/dL: Near Optimal/Above Optimal 130 - 159 mg/dL: Borderline High 160 - 189 mg/dL: High >190 mg/dL: Very High Triglycerides 163(H) <150 mg/dL 09/13/2024 6:49 AM [facility] Comment: ATP III Classification of Triglycerides: <150 mg/dL: Normal 150 - 199 mg/dL: Borderline High 200 - 400 mg/dL: High >500 mg/dL: Very High Blood BLOOD SPECIMEN / Unknown Venipuncture / Unknown 09/13/2024 6:00 AM STAFFING EXECUTIVE 09/13/2024 6:27 AM STAFFING EXECUTIVE Nacho Clay DO LAB - CHEMISTRY KAITLYNN SWARTZ [facility] [address] [place] [address], [place] [phone] * TROPONIN-I HIGH SENSITIVE BASELINE + 1HR (09/12/2024 7:10 PM STAFFING EXECUTIVE) Troponin I High Sensitive 12 <=14 ng/L 09/12/2024 7:49 PM [facility] Blood BLOOD SPECIMEN / Unknown Venipuncture / Unknown 09/12/2024 7:10 PM STAFFING EXECUTIVE 09/12/2024 7:30 PM STAFFING EXECUTIVE Nacho Clay DO LAB - CHEMISTRY ORDAshly SWARTZ [address] [address], [facility] [phone] * (ABNORMAL) TSH REFLEX FREE T4 (09/12/2024 7:10 PM STAFFING EXECUTIVE) TSH 24.558(H) 0.350 - 4.940 uIU/mL 09/12/2024 9:14 PM STAFFING EXECUTIVE [facility] Blood BLOOD SPECIMEN / Unknown Venipuncture / Unknown 09/12/2024 7:10 PM STAFFING EXECUTIVE 09/12/2024 7:30 PM STAFFING EXECUTIVE Lauri Girard MD LAB - CHEMISTRY KAITLYNN SWARTZ Performing Organization Address City/[facility]/ZIP Co de Phone Number [address] [address], [facility] [phone] * PHOSPHORUS BLOOD (09/12/2024 7:10 PM STAFFING EXECUTIVE) Phosphorus 3.2 2.9 - 5.1 mg/dL 09/12/2024 7:50 PM STAFFING EXECUTIVE [facility] Blood BLOOD SPECIMEN / Unknown Venipuncture / Unknown 09/12/2024 7:10 PM STAFFING EXECUTIVE 09/12/2024 7:30 PM STAFFING EXECUTIVE Lauri Girard MD LAB - CHEMISTRY ORDAshly SWARTZ [address] [address], [facility] [phone] * MAGNESIUM BLOOD (09/12/2024 7:10 PM STAFFING EXECUTIVE) Magnesium 1.8 1.6 - 2.6 mg/dL 09/12/2024 7:50 PM STAFFING EXECUTIVE [facility] Blood BLOOD SPECIMEN / Unknown Venipuncture / Unknown 09/12/2024 7:10 PM STAFFING EXECUTIVE 09/12/2024 7:30 PM STAFFING EXECUTIVE Lauri Girard MD LAB - CHEMISTRY KAITLYNN CHILANGOTAMIE Performing Organization Address City/[facility]/ZIP Co de Phone Number [address] [address], [place] [phone] * T4 FREE (09/12/2024 7:10 PM STAFFING EXECUTIVE) T4 Free 0.7 0.7 - 1.5 ng/dL 09/12/2024 9:47 PM STAFFING EXECUTIVE [facility] Blood BLOOD SPECIMEN / Unknown Venipuncture / Unknown 09/12/2024 7:10 PM STAFFING EXECUTIVE 09/12/2024 7:30 PM STAFFING EXECUTIVE Lauri Girard MD LAB - CHEMISTRY KAITLYNN SWARTZ Performing Organization Address [facility] Co de Phone Number [address] [address], [place] [phone] * EKG 12-LEAD (09/12/2024 7:04 PM STAFFING EXECUTIVE) Ventricular Rate 97 BPM [facility] MUSE Atrial Rate 97 BPM [facility] MUSE P-R Interval 186 ms [facility] MUSE QRS Duration ms 106 ms H MUSE Q-T Interval ms 388 ms [facility] MUSE QTC Calculation (Bezet) 492 ms [facility] MUSE Calculated P [place] 60 degrees SL MUSE Calculated R [place] -29 degrees H MUSE Calculated T [place] 94 degrees SL MUSE Interpretation EKG NORMAL SINUS RHYTHM MINIMAL VOLTAGE CRITERIA FOR LVH, MAY BE NORMAL VARIANT ( Baldemar product ) ANTEROSEPTAL INFARCT , AGE UNDETERMINED ABNORMAL ECG NO PREVIOUS ECGS AVAILABLE Confirmed by DAVIS RIDER, JEREMIAH ([id number]) on 09/15/2024 2:33:28 PM [facility] MUSE 09/12/2024 7:04 PM STAFFING EXECUTIVE 09/15/2024 2:33 PM STAFFING EXECUTIVE Nacho Clay DO ECG ORDERABLES Performing Organization Address [facility]/ZIP Co de Phone Number [facility] MUSE * XR Chest 1Vw Portable (09/12/2024 6:54 PM STAFFING EXECUTIVE) Anatomical Region Laterality Modality Chest Digital Radiogra phy 09/12/2024 7:53 PM STAFFING EXECUTIVE Narrative 09/12/2024 8:45 PM STAFFING EXECUTIVE PROCEDURE: XR CHEST 1VW PORTABLE, DATE/TIME OF EXAM: 09/12/2024 7:05 PM, LOCATION [facility] INDICATION: R47.01: Aphasia R40.4: Transient alteration [...] visualized. Report dictated by Maikel Marr MD (technical operations vice president). Klarissa Verma MD have personally reviewed and interpreted this examination/study. > Interpreting Provider: Klarissa Munoz MD on 09/12/2024 8:45 PM Procedure Note Klarissa Munoz MD - 09/12/2024 PROCEDURE: XR CHEST 1VW PORTABLE, DATE/TIME OF EXAM: 09/12/2024 7:05PM, LOCATION [facility] INDICATION: R47.01: Aphasia R40.4: Transient alteration [...] visualized. Report dictated by Maikel Marr MD (technical operations vice president). Klarissa Verma MD have personally reviewed and interpreted this examination/study. > Interpreting Provider: Klarissa Munoz MD on 09/12/2024 8:45 PM Nacho Clay DO DIAGNOSTIC IMAGING O RDERABLES * CT ANGIO BRAIN NECK STROKE (09/12/2024 6:42 PM STAFFING EXECUTIVE) Anatomical Region Laterality Modality Head Computed Tomogra phy 09/12/2024 6:57 PM STAFFING EXECUTIVE Impressions 09/12/2024 7:19 PM STAFFING EXECUTIVE IMPRESSION: 1. No acute intracranial hemorrhage. 2. No large arterial occlusions or significant stenoses identified in the head or neck. Viz.AI was used for large vessel occlusion detection. > Interpreting Provider: Milagros Flores MD on 09/12/2024 7:19 PM Narrative 09/12/2024 7:19 PM STAFFING EXECUTIVE PROCEDURE: CT ANGIO BRAIN NECK STROKE, DATE/TIME OF EXAM: 09/12/2024 6:43 PM, LOCATION [facility] INDICATION: Code Stroke ADDITIONAL CLINICAL INFORMATION: [...] STROKE, DATE/TIME OF EXAM: :43 PM, LOCATION [facility] INDICATION: Code Stroke ADDITIONAL CLINICAL INFORMATION: [...] Nacho Clay DO CT ORDERABLES * PT-INR [facility] (09/12/2024 6:39 PM STAFFING EXECUTIVE) PT 12.9 12.1 - 14.8 Seconds 09/12/2024 7:05 PM STAFFING EXECUTIVE [facility] INR 1.0 See Comment 09/12/2024 7:05 PM STAFFING EXECUTIVE [facility] Comment:The suggested therap eutic range for standard coumadin (warfarin) therapy is an INR of 2.0-3.0. For high-risk patients (Mechanical Mitral Valve Prosthesis, etc.), the suggested prophylactic therapeutic range is an INR of 2.5-3.5. Blood BLOOD SPECIMEN / Unknown Venipuncture / Unknown 09/12/2024 6:39 PM STAFFING EXECUTIVE 09/12/2024 6:45 PM STAFFING EXECUTIVE Nacho Clya DO LAB - COAGULATION OR DERABLES [facility] [address] [place] [address], [facility] [phone] * TYPE + SCREEN PANEL (09/12/2024 6:39 PM STAFFING EXECUTIVE) Antibody Screen NEG 7:42 PM STAFFING EXECUTIVE [facility] ABO Rh A POS 09/12/2024 7:42 PM STAFFING EXECUTIVE [facility] Blood Bank BLOOD SPECIMEN / Unknown Venipuncture / Unknown 09/12/2024 6:39 PM STAFFING EXECUTIVE 09/12/2024 6:50 PM STAFFING EXECUTIVE Nacho Clay DO LAB - BLOOD BANK ORD ERABLES [facility] [address] [place] [address], [facility] [phone] * CBC W AUTO DIFFERENTIAL (09/12/2024 6:39 PM STAFFING EXECUTIVE) WBC 6.5 4.0 - 10.7 x10E9/L 09/12/2024 7:23 PM [facility] RBC Count 4.29 3.90 - 5.20 x10E12/L 09/12/2024 7:23 PM [facility] Hemoglobin 12.9 11.9 - 15.8 g/dL 09/12/2024 7:23 PM [facility] Hematocrit 38.5 34.8 - 46.1 % 09/12/2024 7:23 PM [facility] MCV 89.7 80.0 - 98.0 fL 09/12/2024 7:23 PM [facility] MCH 30.1 26.7 - 33.6 pg 09/12/2024 7:23 PM [facility] MCHC 33.5 31.7 - 36.3 g/dL 09/12/2024 7:23 PM [facility] RDW-CV 13.8 11.3 - 14.8 % 09/12/2024 7:23 PM [facility] Platelet Count 09/12/2024 7:23 PM [facility] Comment:Platelets clumped on slide but appears adequate. Recommend repeat with a sodium citrate blue top tube. MPV 09/12/2024 7:23 PM [facility] Comment:Unable to report Neutrophil % 68.5 41.0 - 74.0 % 09/12/2024 7:23 PM [facility] Lymphocyte % 21.5 17.0 - 47.0 % 09/12/2024 7:23 PM [facility] Monocyte % 7.3 3.0 - 11.0 % 09/12/2024 7:23 PM [facility] Eosinophil % 2.2 0.0 - 7.0 % 09/12/2024 7:23 PM [facility] Basophil % 0.3 0.0 - 1.6 % 09/12/2024 7:23 PM [facility] Immature Granulocytes % 0.2 0.0 - 1.0 % 09/12/2024 7:23 PM [facility] Neutrophil Absolute 4.45 1.60 - 7.50 x10E9/L 09/12/2024 7:23 PM [facility] Lymphocyte Absolute 1.39 1.00 - 4.40 x10E9/L 09/12/2024 7:23 PM [facility] Monocyte Absolute 0.47 0.15 - 1.00 x10E9/L 09/12/2024 7:23 PM [facility] Eosinophil Absolute 0.14 0.00 - 0.60 x10E9/L 09/12/2024 7:23 PM [facility] Basophil Absolute 0.02 0.00 - 0.13 x10E9/L 09/12/2024 7:23 PM [facility] Blood BLOOD SPECIMEN / Unknown Venipuncture / Unknown 09/12/2024 6:39 PM [employer]AFFING EXEC[employer]IVE 09/12/2024 6:45 PM [facility] [place] Nacoh Clay DO LAB - HEMATOLOGY ORD ERABLES Performing Organization Address City/[facility] Co de Phone Number [address] [address], [facility] [phone] * (ABNORMAL) COMPREHENSIVE METABOLIC PANEL (09/12/2024 6:39 PM STAFFING EXECUTIVE) BUN 20 7 - 26 mg/dL 09/12/2024 7:11 PM [facility] Creatinine 0.85 0.56 - 0.96 mg/dL 09/12/2024 7:11 PM [facility] Sodium 142 136 - 145 mmol/L 09/12/2024 7:11 PM [facility] Potassium 4.3 3.5 - 4.5 mmol/L 09/12/2024 7:11 PM [facility] Chloride 107 98 - 107 mmol/L 09/12/2024 7:11 PM [facility] CO2 26 22 - 29 mmol/L 09/12/2024 7:11 PM [facility] Glucose 152(H) 70 - 99 mg/dL 09/12/2024 7:11 PM [facility] Calcium 9.2 8.4 - 10.2 mg/dL 09/12/2024 7:11 PM [facility] Protein Total 7.2 6.0 - 8.3 g/dL 09/12/2024 7:11 PM [facility] Albumin 4.1 3.4 - 5.0 g/dL 09/12/2024 7:11 PM [facility] Bilirubin Total 0.6 0.2 - 1.2 mg/dL 09/12/2024 7:11 PM [facility] Alkaline Phosphatase 76 40 - 150 U/L 09/12/2024 7:11 PM [facility] ALT 14 5 - 55 U/L 09/12/2024 7:11 PM [facility] AST 18 5 - 34 U/L 09/12/2024 7:11 PM [facility] Anion Gap 9 6 - 16 09/12/2024 7:11 PM [facility] BUN/Creatinine Ratio 24(H) 7 - 23 09/12/2024 7:11 PM [facility] Osmolality Calculated 300(H) 275 - 295 mOsm/kg 09/12/2024 7:11 PM [facility] Albumin/Globulin Ratio 1.3 1.1 - 2.3 09/12/2024 7:11 PM [facility] eGFR by CKD-EPI 68(L) >=90 mL/min/1.7 3 m2 09/12/2024 7:11 PM [facility] Blood BLOOD SPECIMEN / Unknown Venipuncture / Unknown 09/12/2024 6:39 PM STAFFING EXECUTIVE 09/12/2024 6:45 PM [facility] [place] Nacho Clay DO LAB - CHEMISTRY KAITLYNN SWARTZ [facility] [address] [place] [address], [facility] [phone] * CREATININE - POCT INTERFACED (09/12/2024 6:36 PM STAFFING EXECUTIVE) Creatinine POCT 0.54 0.30 - 1.30 mg/dL 09/12/2024 6:37 PM STAFFING EXECUTIVE [facility] eGFR >90 >=90 mL/min/1.7 3 m2 09/12/2024 6:37 PM STAFFING EXECUTIVE [facility] Blood BLOOD SPECIMEN / Unknown 09/12/2024 6:36 PM STAFFING EXECUTIVE 09/12/2024 6:37 PM STAFFING EXECUTIVE Nacho Claudio Samanthazenobia LAB - POINT OF CARE ORDERABLES [facility] [address] [place] [address], [place] [phone] * INR WHOLE BLOOD - POINT OF CARE (IP) STROKE (09/12/2024 6:33 PM STAFFING EXECUTIVE) INR 0.9 0.9 - 1.2 09/12/2024 6:36 PM STAFFING EXECUTIVE [facility] Device [id number] 09/12/2024 6:36 PM STAFFING EXECUTIVE [facility] Dividend Deposit Voucher Clerk ID [id number] 09/12/2024 6:36 PM STAFFING EXECUTIVE [facility] Blood BLOOD SPECIMEN / Unknown 09/12/2024 6:33 PM STAFFING EXECUTIVE 09/12/2024 6:36 PM STAFFING EXECUTIVE Nacho Claudio Clay LAB - POINT OF CARE ORDERABLES [facility] [address] [place] [address], [place] [phone] * CT BRAIN - Stroke (09/12/2024 6:28 PM STAFFING EXECUTIVE) Anatomical Region Laterality Modality Head Computed Tomogra phy 09/12/2024 6:30 PM STAFFING EXECUTIVE Impressions 09/12/2024 6:50 PM STAFFING EXECUTIVE IMPRESSION: 1.No acute intracranial hemorrhage. 2.Please note [...] 09/12/2024 6:50 PM Narrative 09/12/2024 6:50 PM STAFFING EXECUTIVE PROCEDURE: CT BRAIN STROKE, DATE/TIME OF EXAM: 09/12/2024 6:29 PM, LOCATION [facility] INDICATION: Code Stroke EXAMINATION: Computed tomography [...] DATE/TIME OF EXAM: 09/12/2024 6:29 PM, LOCATION [facility] INDICATION: Code Stroke EXAMINATION: Computed tomography [...] 6:45 PM 09/14/2024 1:52 PM Care Teams Station Examiner Relationship Specialty Start Date End Date Brianne Ko APRN-BARRERA [address] [place] [address] PCP - General Nurse Practitioner Family 09/12/24
--- OUTSIDE RECORDS SUMMARY | 2024-11-26 12:18 | XMS_ITS | Patient Health Record ---
Author Organization [facility] Address [address] [place] [address] Care Team Providers Care Oceanology Teacher Name Role Phone Kevin Colon Unavailable [phone] REASON FOR REFERRAL No Information MEDICATIONS Medication SIG (Take, Route, Frequency, Duration) Notes Start Date End Date Status Losartan Potassium 25 MG 1 tablet Orally Once a day for 90 day(s) 01/30/2024 Active PROBLEMS Problem Type ICD Code Onset Dates Problem Status W/U Status Risk SNOMED Code Notes Problem Secondary hyperparathyroid ism, not elsewhere classified (E21.1) Active confirmed Secondary hyperparathyroidism (20467359) Problem Essential (primary) hypertension (I10) Active confirmed Essential hypertension (94049576) Problem Renal osteodystrophy (N25.0) Active confirmed Renal osteodyst rophy (98662835) Problem Edema, unspecified (R60.9) Active confirmed Edema (53098741) Problem Proteinuria, unspecified (R80.9) Active confirmed Proteinuria (90974312) Problem Chronic kidney disease, stage 3 unspecified (N18.30) Active confirmed Chronic kidney disease stage 3 (disorder) (602434823) Problem Chronic kidney disease, stage 3a (N18.31) Active confirmed Chronic kidney disease stage 3A (disorder) (463606954) Encounters Encounter Location Date Provider Diagnosis [facility] [address] [place] [address] 01/02/2024 Kevin Colon Chronic kidney disea se, stage 3a N18.31 ; Essential (primary) hypertension I10 ; Edema, unspecified R60.9 ; Renal osteodystrophy N25.0 ; Proteinuria, unspecified R80.9 and Secondary hyperparathyroidism, not elsewhere classified E21.1 [facility] [address] [address] 01/30/2024 Kevin Colon Chronic kidney disea se, stage 3a N18.31 ; Essential (primary) hypertension I10 ; Edema, unspecified R60.9 ; Renal osteodystrophy N25.0 ; Proteinuria, unspecified R80.9 and Secondary hyperparathyroidism, not elsewhere classified E21.1 [facility] [address] [place] [address] 04/23/2024 Kevin Colon Chronic kidney disea se, stage 3a N18.31 ; Essential (primary) hypertension I10 ; Edema, unspecified R60.9 ; Renal osteodystrophy N25.0 ; Proteinuria, unspecified R80.9 and Secondary hyperparathyroidism, not elsewhere classified E21.1 [facility] [address] [place] [address] 07/02/2024 Kevin Colon Chronic kidney disea se, stage 3 unspecified N18.30 ; Essential (primary) hypertension I10 ; Edema, unspecified R60.9 ; Renal osteodystrophy N25.0 ; Proteinuria, unspecified R80.9 and Secondary hyperparathyroidism, not elsewhere classified E21.1 [facility] [address] [place] [address] 10/01/2024 Kevin Colon [facility] [address] [place] [address] 2024 Kevin Colon [facility] [address] [place] [address] 11/12/2024 Kevin Colon [facility] [address] [place] [address] 01/30/2024 Kevin Colon ASSESSMENTS Encounter Date Diagnosis [...] classified (ICD-10 - E21.1) PLAN OF TREATMENT No Information
--- OUTSIDE RECORDS SUMMARY | 2024-11-26 12:18 | XMS_ITS | Data Portability ---
Author Organization [place] - [facility], Main Office Address [address] [place] [address] Care Team Providers Care Pals Nurse Name Role Phone SONYA JACKSON Primary Care Provider DARLING ANGEL Manager Research Development FREDDY MORAN Oil Processing Technician Assessment Encounter Date Assessment Date Assessment LastModified by Organization Details LastModified Time 05/27/2024 05/27/2024 12/01/2023: Chol 224, TG 201, [...] medications post their discharge from inpatient facility. [email or web address] Not available 09/21/2024 17:16:33 11/10/2024 11/10/2024 12/01/2023: Chol 224, TG 201, LDL 128 Urine micro alb 99.0 TSH 20.20H, FT4 0.65L Gluc 128 VIT D 27.6H A1C 7.2 02/26/2024: A1C 7.0 TSH <0.015L, FT4 2.27H BUN 21 H/H 11.1/33.9 05/28/2024: Case sent 06/14/2024: A1C 7.2 TSH 19.5H, FT4 0.65L VIT D 25.9 Urine micro alb 74.3H Gluc 136, BUN 27, GFR 53 TG 214 10/19/2024: A1C 7.4 Urine micro alb 269.7 TSH 7.790H Gluc 124, BUN 36 [email or web address] Not available 11/10/2024 17:33:57 11/15/2024 11/15/2024 This note is dictated and transcribed by [employer]. Time Clock Repairer variances may occur. Despite proofreading, typographical errors may occur. Occasional wrong-word or 'sfurn-q-peej' substitutions may have occurred due to the inherent limitations of voice recording. Read the chart carefully and recognize, using context, where substitutions have occurred. [email or web address] Not available 11/15/2024 11:52:59 11/25/2024 11/25/2024 This note is dictated and transcribed by [employer]. Time Clock Repairer variances may occur. Despite proofreading, typographical errors may occur. Occasional wrong-word or 'rtwmv-g-qpgf' substitutions may have occurred due to the inherent limitations of voice recording. Read the chart carefully and recognize, using context, where substitutions have occurred. [email or web address] Not available 11/25/2024 14:31:59 Plan of Treatment Reminders Order Date Submit Date Provider Last Modified By Organization Details Last Modified Time Details Appointments Establish ed Patient 15 2024 10:45A M Heron Harley DPM Not available Not available Not available Any 15 2024 10:30A Patricia barnes MD Not available Not available Not available Lab lipid panel, serum 2024 025 [facility] (Lab), [address] [place], [address], 11/17/2024 04:26:12 CBC w/ auto diff 2024 025 [facility] (Lab), [address] [place], [address], 11/17/2024 04:26:12 TSH, serum or plasma 2024 025 [facility] (Lab), [address] [place], [address], 11/17/2024 04:26:12 CMP, serum or plasma 2024 025 [facility] (Lab), [address] [place], [address], 11/17/2024 04:26:13 vitamin D, 25-hydrox y, total, serum 2024 025 [facility] (Lab), [address] [place], [address], 11/17/2024 04:26:13 glycohemo globin, total, blood 2024 025 [facility] (Lab), [address] [place], [address], 11/17/2024 04:26:13 microalbu min, urine 2024 025 [facility] (Lab), [address] [place], [address], 11/17/2024 04:26:13 lipid panel, serum 2024 025 [facility] (Lab), [address] [place], [address], 10/19/2024 14:01:30 CBC w/ auto diff 2024 025 [facility] (Lab), [address] [place], [address], 10/19/2024 13:54:50 TSH, serum or plasma 2024 025 [facility] (Lab), [address] [place], [address], 10/19/2024 14:41:39 CMP, serum or plasma 2024 025 [facility] (Lab), [address] [place], [address], 10/19/2024 14:01:35 vitamin D, 25-hydrox y, total, serum [address] (Lab), [address] [place], [address], 11/04/2024 11:14:09 glycohemo globin, total, blood 2024 025 [facility] (Lab), [address] [place], [address], 10/19/2024 15:00:56 microalbu min, urine 2024 025 [facility] (Lab), [address] [place], [address], 10/19/2024 14:47:09 lipid panel, serum 2023 024 [facility] (Lab), [address] [place], [address], 05/28/2024 13:43:21 CBC w/ auto diff 2023 024 [facility] (Lab), [address] [place], [address], 05/28/2024 13:58:06 TSH, serum or plasma 2023 024 [facility] (Lab), [address] [place], [address], 05/28/2024 13:49:22 CMP, serum or plasma 2023 024 [facility] (Lab), [address] [place], [address], 05/28/2024 13:43:31 vitamin D, 25-hydrox y, total, serum [address] (Lab), [address] [place], [address], 06/03/2024 16:35:06 glycohemo globin, total, blood [address] (Lab), [address] [place], [address], 06/03/2024 16:35:06 microalbu min, urine 2023 024 [facility] (Lab), [address] [place], [address], 05/28/2024 13:53:05 Referral nephrolog ist referral - Please call patient to schedule an appointme nt. Thank you. 2024 025 HEMALATHA Angel MD (Nephrology, [address], [address], [place], [address], 11/17/2024 09:21:14 cardiolog ist referral - Please call patient to schedule an appointme nt. Thank you. 2024 025 [place], [address], [address], [place], [address], 11/15/2024 17:31:40 podiatris t referral - Please call patient to schedule an appointme nt. Thank you. 2024 025 VIRGINIA Harley DPM, [address], [address], [place], [address], 11/15/2024 17:22:20 orthopedi c surgeon referral - Please call patient to schedule an appointme nt. Thank you. 2024 025 [email or web address] Otilio Soriano MD, [address] [facility], [place], [address], 11/15/2024 16:29:36 cardiolog ist referral 2024 025 [email or web address] [place], [address] [facility], [facility] [address], [place], [address], 09/22/2024 09:33:13 podiatris t referral - Please call patient to schedule. 2024 025 VIRGINIA Harley DPM, [address] [facility], [address], [place], [address], 09/28/2024 08:15:46 orthopedi c surgeon referral - Please call patient to schedule. 2024 025 [email or web address] Otilio Soriano MD, [address] [facility], [place], [address], 09/28/2024 08:13:22 cardiolog ist referral 2023 024 [email or web address] [place], [address] [facility], [address], [place], [address], 05/27/2024 13:10:33 podiatris t referral 2023 024 [email or web address] Heron Harley DPM, [address] [facility], [address], [place], [address], 05/27/2024 13:11:00 orthopedi c surgeon referral 2023 024 [email or web address] Otilio Soriano MD, [facility] [place], [address], 05/27/2024 13:11:01 Procedures None recorded. Surgeries None recorded. Imaging None recorded. Medication Orders alprazola m 0.25 mg tablet 2024 025 [facility], [address] [place] [address], [address], 11/10/2024 18:00:49 Patient TargetsNo targets recorded. Patient Instructions Encounter Date Encounter Id Patient Instructions Last Modified By Organization Details Last Modified Time 09/21/2024 [id number] Thank you for your visit to our office today. We would [...] homebound status}} Required Home Health Services: {{none chcf, physical therapy, occupational therapy chcf, physical therapy [facility]}} Durable Medical Equipment needed: {{cane walker wal ker with seat manual wheelchair bedsid e commode oxygen}} Billing Guidelines CPT code 22289- Transitional Care Management services with moderate medical decision complexity (hjqm-gz-kopx visit within 14 days of discharge). CPT code 73064- Transitional Care Management services with high medical decision complexity (isyx-fw-aqur visit within 7 days of discharge). [email or web address] Not available 09/21/2024 17:01:05 Reason for Referral Oil Processing Technician Referral for Ed tremaine of lower extremity Referring Physician: Zaida Avina Medicine, Encounter Date: 05/27/2024 Deflector Operator Referral for Vick er toe Referring Physician: Zaida Avina Medicine, Encounter Date: 05/27/2024 Orthopedic Surgeon Referral for Pain of bilateral knee joints Referring Physician: Zaida Avina Medicine, Encounter Date: 05/27/2024 Oil Processing Technician Referral for Ed tremaine of lower extremity Referring Physician: Zaida Avina Medicine, Encounter Date: 09/21/2024 Deflector Operator Referral for Vick er toe Please call patient to schedule. Referring Physician: Zaida Avina, Encounter Date: 09/21/2024 Orthopedic Surgeon Referral for Pain of bilateral knee joints Please call patient to schedule. Referring Physician: Zaida Avina, Encounter Date: 09/21/2024 Oil Processing Technician Referral for Ed tremaine of lower extremity Please call patient to schedule an appointment. Thank you. Referring Physician: Zaida Avian Medicine, Encounter Date: 11/10/2024 Deflector Operator Referral for Vick er toe Please call patient to schedule an appointment. Thank you. Referring Physician: Zaida Avina, Encounter Date: 11/10/2024 Orthopedic Surgeon Referral for Pain of bilateral knee joints Please call patient to schedule an appointment. Thank you. Referring Physician: Zaida Avina Medicine, Encounter Date: 11/10/2024 Manager Research Development Referral for Ch ronic kidney disease Please call patient to schedule an appointment. Thank you. Referring Physician: Zaida Avina, Encounter Date: 11/10/2024 Results Created Date Observation Date Name Description Value Unit Range Abnormal Flag Note LastModifiedBy Organization Detail LastModifiedTime 05/28/2005/28/2024 LIPID PANEL cholesterol 141 mg/dL 140-19 9 NIH REFUGIO NSUS RECOM MENDA TION FOR MUSA STERO L: ADULT CHILD LOW RISK: <200 <170 BORDE RLINE : <200- 239 ----- HIGH RISK: >240 >200 Not Available [facility] (Lab) [address] [place], [address], 05/28/2024 13:43:20 05/28/2005/28/2024 LIPID PANEL triglyceride s 214 mg/dL 0-150 high NIH REFUGIO NSUS REPOR T RECOM MENDA TION FOR TRIGL YCERI JAK: ADULT CHILD LOW RISK: <150 ----- BODER LINE: 150-1 99 ----- HIGH RISK: >200 ----- Not Available [facility] (Lab) [address] [place], [address], 05/28/2024 13:43:20 05/28/20 24 05/28/2024 LIPID PANEL HDL cholesterol 57 mg/dL 40- Not Available [facility] (Lab) [address] [place], [address], 05/28/2024 13:43:20 05/28/20 24 05/28/2024 LIPID PANEL LDL cholesterol, calculated 41 mg/dL [...] WILL NOT BE REPOR ORIANA. Not Available [facility] (Lab) [address] [place], [address], 05/28/2024 13:43:20 05/28/20 24 05/28/2024 COMPR EHENS GUILLERMO METAB OLIC PANEL sodium 137 mmol/ L 137-14 5 Not Available [facility] (Lab) [address] [place], [address], 05/28/2024 13:43:31 05/28/20 24 05/28/2024 COMPR EHENS GUILLERMO METAB OLIC PANEL potassium 3.8 mmol/ L 3.5-5. 1 Not Available [facility] (Lab) [address] [place], [address], 05/28/2024 13:43:31 05/28/20 24 05/28/2024 COMPR EHENS GUILLERMO METAB OLIC PANEL chloride 103 mmol/ L 98-107 Not Available [facility] (Lab) [address] [place], [address], 05/28/2024 13:43:31 05/28/20 24 05/28/2024 COMPR EHENS GUILLERMO METAB OLIC PANEL carbon dioxide 30 mmol/ L 22-30 Not Available [facility] (Lab) [address] [place], [address], 05/28/2024 13:43:31 05/28/20 24 05/28/2024 COMPR EHENS GUILLERMO METAB OLIC PANEL anion gap 7.8 mmol/ L 14-22 low Not Available [facility] (Lab) [address] [place], [address], 05/28/2024 13:43:31 05/28/20 24 05/28/2024 COMPR EHENS GUILLERMO METAB OLIC PANEL glucose 136 mg/dL 70-99 high Not Available [facility] (Lab) [address] [place], [address], 05/28/2024 13:43:31 05/28/20 24 05/28/2024 COMPR EHENS GUILLERMO METAB OLIC PANEL BUN 27 mg/dL 8-19 high Not Available [facility] (Lab) [address] [place], [address], 05/28/2024 13:43:31 05/28/20 24 05/28/2024 COMPR EHENS GUILLERMO METAB OLIC PANEL creatinine 0.99 mg/dL 0.66-1 .25 Not Available [facility] (Lab) [address] [place], [address], 05/28/2024 13:43:31 05/28/20 24 05/28/2024 COMPR EHENS GUILLERMO METAB OLIC PANEL GFR 53 Refer ence Range : [place] ge GFR Healt hy Adult : >60 [...] or ethni c subgr oups, such as Hisal nics. Outsi de the valid ated mamta [...] calcu lator is avail able on the F websi te: https ://ww w.kid nohelia.o rg/pr ofess ional s/kdo qi/gf r_cal culat or Not Available [facility] (Lab) [address] [place], [address], 05/28/2024 13:43:31 05/28/20 24 05/28/2024 COMPR EHENS GUILLERMO METAB OLIC PANEL alkaline phosphatase 92 U/L 38-126 Not Available [facility] (Lab) [address] [place], [address], 05/28/2024 13:43:31 05/28/20 24 05/28/2024 COMPR EHENS GUILLERMO METAB OLIC PANEL alanine aminotransfe rase 14 U/L 0-35 Not Available [facility] (Lab) [address] [place], [address], 05/28/2024 13:43:31 05/28/20 24 05/28/2024 COMPR EHENS GUILLERMO METAB OLIC PANEL aspartate aminotransfe rase 22 U/L 15-37 Not Available [facility] (Lab) [address] [facility] [place], [address], 05/28/2024 13:43:31 05/28/20 24 05/28/2024 COMPR EHENS GUILLERMO METAB OLIC PANEL bilirubin, total 0.80 mg/dL 0.20-1 .30 Not Available [facility] (Lab) [address] [place], [address], 05/28/2024 13:43:31 05/28/20 24 05/28/2024 COMPR EHENS GUILLERMO METAB OLIC PANEL calcium 9.4 mg/dL 8.4-10 .2 Not Available [facility] (Lab) [address] [place], [address], 05/28/2024 13:43:31 05/28/20 24 05/28/2024 COMPR EHENS GUILLERMO METAB OLIC PANEL total protein 7.2 g/dL 6.3-8. 2 Not Available [facility] (Lab) [address] [place], [address], 05/28/2024 13:43:31 05/28/20 24 05/28/2024 COMPR EHENS GUILLERMO METAB OLIC PANEL albumin 4.3 g/dL 3.0-4. 4 Not Available [facility] (Lab) [address] [place], [address], 05/28/2024 13:43:31 05/28/20 24 05/28/2024 COMPR EHENS GUILLERMO METAB OLIC PANEL globulin 2.9 g/dL 2.6-4. 2 Not Available [facility] (Lab) [address] [place], [address], 05/28/2024 13:43:31 05/28/20 24 05/28/2024 COMPR EHENS GUILLERMO METAB OLIC PANEL A/G ratio 1.5 ratio 1.0-2. 0 Not Available [facility] (Lab) [address] [place], [address], 05/28/2024 13:43:31 05/28/20 24 05/28/2024 TSH W/REF CORNELIO FT4 TSH with reflex free T4 19.500 uIU/m L 0.465- 4.680 high Not Available [facility] (Lab) [address] [place], [address], 05/28/2024 13:49:22 05/28/20 24 05/28/2024 MICRO ALBUM IN RANDO M URINE microalbumin , urine 74.3 mg/L 0.0-16 .6 high Not Available [facility] (Lab) [address] [place], [address], 05/28/2024 13:53:05 05/28/20 24 05/28/2024 VITAM IN D 25-HY DROXY vd25oh 25.9 NG/mL 30-100 low Vitam in D Statu s: Defic ient: <20 ng/mL Insuf ficie nt: 20-29 ng/mL Suffi cient : 30-10 0 ng/mL Not Available [facility] (Lab) [address] [place], [address], 05/28/2024 13:53:16 05/28/20 24 05/28/2024 CBC/C OMPLE TE BLD COUNT W/DIF F white blood cells 8.5 x10'3 /uL 4.2-10 .8 Not Available [facility] (Lab) [address] [place], [address], 05/28/2024 13:58:06 05/28/20 24 05/28/2024 CBC/C OMPLE TE BLD COUNT W/DIF F red blood cells 4.15 x10'6 /uL 3.80-5 .20 Not Available [facility] (Lab) [address] [place], [address], 05/28/2024 13:58:06 05/28/20 24 05/28/2024 CBC/C OMPLE TE BLD COUNT W/DIF F hemoglobin 12.4 g/dL 12.0-1 5.6 Not Available [facility] (Lab) [address] [place], [address], 05/28/2024 13:58:06 05/28/20 24 05/28/2024 CBC/C OMPLE TE BLD COUNT W/DIF F hematocrit 39.1 % 35.7-4 5.7 Not Available [facility] (Lab) [address] [place], [address], 05/28/2024 13:58:06 05/28/20 24 05/28/2024 CBC/C OMPLE TE BLD COUNT W/DIF F mean red cell volume 94.2 fL 82.0-9 9.0 Not Available [facility] (Lab) [address] [place], [address], 05/28/2024 13:58:06 05/28/20 24 05/28/2024 CBC/C OMPLE TE BLD COUNT W/DIF F mean red cell hemoglobin 29.9 pg 27.0-3 3.0 Not Available [facility] (Lab) [address] [place], [address], 05/28/2024 13:58:06 05/28/20 24 05/28/2024 CBC/C OMPLE TE BLD COUNT W/DIF F mean RBC HGB concentratio n 31.7 g/dL 31.0-3 6.0 Not Available [facility] (Lab) [address] [place], [address], 05/28/2024 13:58:06 05/28/2005/28/2024 CBC/C OMPLE TE BLD COUNT W/DIF F red cell distribution width 14.1 % 11.8-1 5.5 Not Available [facility] (Lab) [address] [place], [address], 05/28/2024 13:58:06 05/28/2005/28/2024 CBC/C OMPLE TE BLD COUNT W/DIF F platelets 175 x10'3 /uL 150-40 0 Not Available [facility] (Lab) [address] [place], [address], 05/28/2024 13:58:06 05/28/2005/28/2024 CBC/C OMPLE TE BLD COUNT W/DIF F mean platelet volume 10.9 fL 9.0-12 .4 Not Available [facility] (Lab) [address] [place], [address], 05/28/2024 13:58:06 05/28/2005/28/2024 CBC/C OMPLE TE BLD COUNT W/DIF F neutrophils 75.8 % 39.0-7 2.0 high Not Available [facility] (Lab) [address] [place], [address], 05/28/2024 13:58:06 05/28/2005/28/2024 CBC/C OMPLE TE BLD COUNT W/DIF F lymphocytes 14.8 % 16.0-4 7.0 low Not Available [facility] (Lab) [address] [place], [address], 05/28/2024 13:58:06 05/28/20 24 05/28/2024 CBC/C OMPLE TE BLD COUNT W/DIF F monocytes 5.9 % 5.0-12 .0 Not Available [facility] (Lab) [address] [place], [address], 05/28/2024 13:58:06 05/28/20 24 05/28/2024 CBC/C OMPLE TE BLD COUNT W/DIF F eosinophils 1.6 % 1.0-7. 0 Not Available [facility] (Lab) [address] [place], [address], 05/28/2024 13:58:06 05/28/2005/28/2024 CBC/C OMPLE TE BLD COUNT W/DIF F basophils 0.7 % 0.0-2. 0 Not Available [facility] (Lab) [address] [place], [address], 05/28/2024 13:58:06 05/28/2005/28/2024 CBC/C OMPLE TE BLD COUNT W/DIF F immature granulocytes 1.2 % 0.00-0 .50 high Not Available [facility] (Lab) [address] [place], [address], 05/28/2024 13:58:06 05/28/20 24 05/28/2024 CBC/C OMPLE TE BLD COUNT W/DIF F neutrophils, absolute count 6.46 x10'3 /uL 1.5-8. 0 Not Available [facility] (Lab) [address] [place], [address], 05/28/2024 13:58:06 05/28/20 24 05/28/2024 CBC/C OMPLE TE BLD COUNT W/DIF F lymphocytes, absolute count 1.26 x10'3 /uL 1.07-3 .43 Not Available [facility] (Lab) [address] [place], [address], 05/28/2024 13:58:06 05/28/20 24 05/28/2024 CBC/C OMPLE TE BLD COUNT W/DIF F monocytes, absolute count 0.50 x10'3 /uL 0.29-0 .99 Not Available [facility] (Lab) [address] [place], [address], 05/28/2024 13:58:06 05/28/20 24 05/28/2024 CBC/C OMPLE TE BLD COUNT W/DIF F eosinophils, absolute count 0.14 x10'3 /uL 0.02-0 .53 Not Available [facility] (Lab) [address] [place], [address], 05/28/2024 13:58:06 05/28/20 24 05/28/2024 CBC/C OMPLE TE BLD COUNT W/DIF F basophils, absolute count 0.06 x10'3 /uL 0.01-0 .08 Not Available [facility] (Lab) [address] [place], [address], 05/28/2024 13:58:06 05/28/20 24 05/28/2024 CBC/C OMPLE TE BLD COUNT W/DIF F immature granulocytes ,absolute 0.10 x10'3 /uL 0.00-0 .05 high Not Available [facility] (Lab) [address] [place], [address], 05/28/2024 13:58:06 05/28/20 24 05/28/2024 CBC/C OMPLE TE BLD COUNT W/DIF F nucleated red blood cells 0.0 % -0 Not Available [facility] (Lab) [address] [place], [address], 05/28/2024 13:58:06 05/28/20 24 05/28/2024 CBC/C OMPLE TE BLD COUNT W/DIF F NRBC# 0.00 x10'3 /uL Not Available [facility] (Lab) [address] [place], [address], 05/28/2024 13:58:06 05/28/20 24 05/28/2024 T4 FREE free T4 0.65 NG/dL 0.78-2 .19 low Not Available [facility] (Lab) [address] [place], [address], 05/28/2024 14:39:53 05/28/20 24 06/02/2024 HA1C, SEND- OUT TO [facility] RP hemoglobin A1C 7.2 % 4.8-5. 6 high . . Predi abete s: 5.7 - 6.4 Diabe ellen: >6.4 Glyce lila contr ol for adult s with diabe ellen: <7.0 Perfo rmed at: - [facility]3] [address] [place] [address] Lab Direc tor: Ramon alamo PhD, Phone : [phone] Not Available [facility] (Lab) [address] [place], [address], 06/02/2024 05:10:13 10/26/19 25 10/26/2024 imagi ng/di agnos tic resul t No observ ation record ed. [address] [address], [place], [address], 10/26/2024 07:17:45 10/26/1910/26/2024 imagi ng/di agnos tic resul t No observ ation record ed. [address] [address], [place], [address], 10/26/2024 07:18:45 Result Notes None recorded. Problems Name Problem SNOMED Code Status Onset Date Resolution Date Notes Provider Name and Address Organization Details Recorded Time Hammer toe 623993053 Active 2020 Not Available [facility] 3 22:20:53 Acute sinusitis 83218843 Active 2021 Not Available [facility] 3 22:20:53 Increased frequency of urination 689003168 Active 2021 Not Available [facility] 3 22:20:53 Recurrent urinary tract infection 080934039 Active 2021 Not Available [facility] 3 22:20:53 Osteoarthr itis of knee 043352959 Active Not Available [facility] 3 22:20:53 Anemia 279589033 Active 2021 Not Available [facility] 3 22:20:53 Pain in right foot 8715364219849 07 Active 2021 Not Available [facility] 3 22:20:53 Vitamin D deficiency 53421975 Active 2021 Not Available [facility] 3 22:20:53 Acute urinary tract infection 316380050 Active 2022 Not Available [facility] 3 22:20:53 Cough 18275574 Active 2021 Not Available [facility] 3 22:20:53 Blister of toe without infection 47664337 Active Not Available [facility] 3 22:20:53 Tinea pedis 4467010 Active 2021 Not Available [facility] 3 22:20:53 Diabetes mellitus 03601650 Active 2020 Not Available [facility] 3 22:20:53 Neck pain 88214757 Active 2021 Not Available [facility] 3 22:20:53 Upper respirator y infection 86818558 Active 2022 Not Available [facility] 3 22:20:53 Hypothyroi dism 71560484 Active 2022 Not Available [facility] 3 22:20:53 Essential hypertensi on 99524866 Active 2022 Not Available [facility] 3 22:20:53 Hyperlipid emia 82127403 Active 2022 Not Available [facility] 3 22:20:53 Atrial fibrillati on 98791968 Active 2022 Not Available [facility] 3 22:20:53 Anxiety 81061609 Active 2022 Not Available [facility] 3 22:20:53 Edema of lower extremity 772648696 Active 2022 Not Available [facility] 3 22:20:53 Intramural calcificat ion of tracy r 584317192 Active 2022 Not Available [facility] 3 22:20:53 Type 2 diabetes mellitus without complicati on 283406816 Active 2022 Not Available [facility] 3 22:20:53 Cellulitis of right lower limb 0940943323300 9104 Active 2022 Not Available [facility] 3 22:20:53 Cellulitis of lower limb 479751091 Active 2022 Not Available [facility] 3 22:20:53 Iron deficiency 95578664 Active 2022 Not Available [facility] 3 22:20:53 Cobalamin deficiency 237677358 Active 2022 Not Available [facility] 3 22:20:53 Pain of bilateral knee joints 4624912773273 04 Active 2022 Not Available [facility] 3 22:20:53 Hammer toe 409165592 Active 2022 Not Available [facility] 3 22:20:53 Dystrophia unguium 78909065 Active 2022 Heron Harley DPM [address], [address], [place], [address] , [facility] [employer] [facility] 3 17:34:30 Cut of great toe 954304713 Active 2022 Heron Harley DPM [address], [address], [place], [address] , [facility] [employer] [facility] 3 17:34:56 Chronic kidney disease 057353341 Active 2023 BINA Brand, [facility] 4 15:46:27 Urinary symptoms 472432173 Active 2023 BINA Brand, [facility] [employer] [facility] 4 15:34:49 Unsteady when walking 89529078 Active 2024 Sonya vigil MD [address], [address], [place], [address] , [facility] [employer] [facility] [employer] 5 17:38:29 Abscess of skin of right ankle 9130710662369 9108 Active 2024 Heron Harley DPM [address], [address], [place], [address] , [employer] [facility] [employer] 5 13:19:01 Lymphedema of lower extremity 882708584 Active 2024 Heron Harley DPM [address], [address], [place], [address] , [employer] [facility] [employer] 5 13:19:44 Right lower leg blister with infection Active 2024 Heron Harley DPM [address], [address], [place], [address] , [employer] [facility] [employer] 5 13:21:33 Generalize d rash 721585905 Active 2024 Jerrica Ace MA null, [employer] [facility] [employer] [facility] 5 08:58:58 Tear of skin 036843175 Active 2024 Heron Harley DPM [address], [address], [place], [address] , [employer] [facility] [employer] 5 14:32:06 Problem Notes None recorded. Procedures Surgical History Date Name Laterality Status Provider Name and Address Organization Details Recorded Time Nail Debridement completed Heron Harley DPM [address], [place], [address], [employer] [facility] [employer] 11/25/2024 14:31:43 5 Abcess Drainage completed Heron Harley DPM [address], [address], [place], [address], [place] [facility] [employer] 11/15/2024 11:52:42 5 Transitional_Ca re_Management completed Sonya Jackson MD [address] [facility], [address], [place], [address], [facility] [employer] [facility] 09/22/2024 14:37:41 4 Medicare Wellness CPT Code, subsequent completed John Hinojosa LPN [facility] [employer] [facility] 02/23/2024 19:08:17 4 Advanced Care Planning completed John Hinojosa LPN [facility] [employer] [facility] 02/26/2024 12:51:32 3 Nail Debridement completed Heron Harley DPM [address] [facility] [facility] [address], [place], [address], [facility] [employer] [facility] 08/11/2023 17:34:12 Hysterectomy, Partial completed Daniella Liang [facility] [employer] [facility] 11/27/2023 10:48:57 Imaging Results Imaging Date Name Status LastModified by Organiz ation Details LastModified Time 10/26/2024 imaging/diagn ostic result active [address], [place], [address], 10/26/2024 07:17:45 10/26/2024 imaging/diagn ostic result active [address], [place], [address], 10/26/2024 07:18:45 Procedure Notes None recorded. Medical Equipment None Reported. Allergies No known drug allergies Medications Name Sig Start Date Stop Date Status Note LastModified by Organization Details LastModified Time metformin 500 mg tablet Take 1 tablet every day by oral route for 30 days. 09/21 completed Not Available Not Available Not Available doxycycli ne hyclate 100 mg capsule active Not Available Not Available Not Available nystatin 100,000 unit/gram topical ointment APPLY TO THE AFFECTED AREA(S) BY TOPICAL ROUTE 2 TIMES PER DAY active Not Available Not Available No t Available ampicilli n 500 mg capsule TAKE 1 CAPSULE BY MOUTH THREE TIMES DAILY UNTIL GONE 12/18 completed Not Available Not Available Not Available lisinopri l 20 mg tablet Take 1 tablet twice a day by oral route. 11/26 completed Not Available Not Available Not Available clindamyc in HCl 150 mg capsule TAKE 3 CAPSULES BY MOUTH THREE TIMES DAILY FOR 5 DAYS 11/10 completed Not Available Not Available Not Available cyanocoba tyler (vit B-12) 1,000 mcg tablet [...] Available Not Available Not Available levothyro xine 100 mcg tablet TAKE 1 TABLET BY MOUTH ONCE DAILY active Not Available Not Available No t Available amoxicill in 875 mg tablet TAKE 1 TABLET BY MOUTH EVERY 12 HOURS UNTIL GONE 04/26 completed Not Available Not Available Not Available alprazola m 0.25 mg tablet TAKE 1 TABLET BY MOUTH ONCE DAILY NEEDED FOR 10 DAYS active Not Available Not Available No t Available cyanocoba tyler (vit B-12) 500 mcg [...] e 50 mcg/actua tion nasal spray,[place] [facility] [place] 1 spray every day by intranas al [...] Not Available rosuvasta tin 40 mg tablet TAKE 1 TABLET BY [...] Updated DateTime 4 165.1 cm 31.8 kg/m2 67995.1 4 g 98.5 [degF] 93 /min 95 % 95 % 136 mm[Hg] 64 mm[Hg] Meri Gu MA [employer] 4 11:38:58 Date Recorded Body height Body temperature Heart rate Oxygen saturation Oxygen saturation in Arterial blood by Pulse oximetry Pain severity - 0-10 verbal numeric rating [Score] - Reported Provider Name and Address Organization Details Last Updated DateTime 5 165.1 cm 98.05 [degF] 79 /min 98 % 98 % 8 Meri Gu MA [employer] 5 17:03:32 Date Recorded Body height Body mass index (BMI) Body weight Body temperature Heart rate Systolic blood pressure Diastolic blood pressure Provider Name and Address Organization Details Last Updated DateTime 5 165.1 cm 32.3 kg/m2 40055.9 2 g 97.7 [degF] 78 /min 144 mm[Hg] 80 mm[Hg] PARVIZ Mark [employer] 5 17:15:41 Date Recorded Body height Body mass index (BMI) Body weight Heart rate Respiratory rate Oxygen saturation Oxygen saturation in Arterial blood by Pulse oximetry Provider Name and Address Organization Details Last Updated DateTime 5 165.1 cm 32.3 kg/m2 54322.9 2 g 76 /min 14 /min 98 % 98 % Saira Avalos [employer] 5 11:29:18 Date Recorded Body height Body mass index (BMI) Body weight Heart rate Respiratory rate Oxygen saturation Oxygen saturation in Arterial blood by Pulse oximetry Systolic blood pressure Diastolic blood pressure Provider Name and Address Organization Details Last Updated DateTime 5 165.1 cm 32.3 kg/m2 31374.9 2 g 84 /min 14 /min 98 % 98 % 147 mm[Hg] 70 mm[Hg] Saira Avalos [employer] 5 14:14:24 Social History Question Answer Notes LastModified by Organization Details LastModified Time Tobacco Smoking Status Never Smoker Not Available [facility] 11/13/2022 14:10:12 Do You Have An Advance Directive? No Information Provided Information not available 02/26/2024 What Is Your Level Of Alcohol Consumption? Occasional MIGRATION.095 [id number] Information not available 11/13/2022 Are You Blind Or Do You Have Difficulty Seeing? No MIGRATION.924 [id number] Information not available 11/13/2022 Is Blood Transfusion Acceptable In An Emergency? Yes [email or web address] Information not available 02/26/2024 What Is Your Level Of Caffeine Consumption? Moderate MIGRATION.581 [id number] Information not available 11/13/2022 How Much Tobacco Do You Chew? None MIGRATION.591 8744830 Information not available 11/13/2022 In The 14 Days Before Symptom Onset, Have You Had Close Contact With A Laboratory-conf irmed COVID-19 While That Case Was Ill? No MIGRATION.982 [id number] Information not available 11/13/2022 In The 14 Days Before Symptom Onset, Have You Had Close Contact With A Person Who Is Under Investigation For COVID-19 While That Person Was Ill? No MIGRATION.228 5990048 Information not available 11/13/2022 Are You Currently Employed? No Information not available 02/26/2024 Are You Deaf Or Do You Have Serious Difficulty Hearing? No MIGRATION.312 [id number] Information not available 11/13/2022 What Type Of Diet Are You Following? REGULAR MIGRATION.475 0600330 Information not available 11/13/2022 Which Illicit Or Recreational Drugs Have You Used? None MIGRATION.768 [id number] Information not available 11/13/2022 Do You Or Have You Ever Used E-cigarettes Or Vape? Never Used Electronic Cigarettes MIGRATION.931 [id number] Information not available 11/13/2022 What Is The Highest Grade Or Level Of School You Have Completed Or The Highest Degree You Have Received? [id number] MIGRATION.613 7589656 Information not available 11/13/2022 What Is Your Occupation? Retired MIGRATION.089 3113869 Information not available 11/13/2022 How Many Days Of Moderate To Strenuous Exercise, Like A Brisk Walk, Did You Do In The Last 7 Days? 0 [email or web address] Information not available 02/26/2024 Have There Been Any Changes To Your Family Or Social Situation? No MIGRATION.221 2503138 Information not available 11/13/2022 What Is The Fluoride Status Of Your Home? Unknown MIGRATION.195 1304924 Information not available 11/13/2022 Are There Any Guns Present In Your Home? No MIGRATION.799 [id number] Information not available 11/13/2022 Do You Use Insect Repellent Routinely? No MIGRATION.510 1157533 Information not available 11/13/2022 [facility] M[facility].528 [id number] Information not available 11/13/2022 Presence Of Domestic Violence No [email or web address] Information not available 02/26/2024 Guns Present In The Home? No [email or web address] Information not available 02/26/2024 Are You Able To Care For Yourself? Yes [email or web address] Information not available 02/26/2024 Are You Blind Or Do Yo Have Difficulty Seeing? No [email or web address] Information not available 02/26/2024 Are You Deaf Or Do You Have Serious Difficulty Hearing? No [email or web address] Information not available 02/26/2024 General Stress Level? High [email or web address] Information not available 02/26/2024 Live Alone Of With Others? With Others [email or web address] Information not available 02/26/2024 Do You Have A Medical Power Of Insert Molding Operator? No MIGRATION.365 [id number] Information not available 11/13/2022 What Was The Date Of Your Most Recent Tobacco Screening? 11/10/2024 Information not available 11/10/2024 How Many Children Do You Have? 5 [email or web address] Information not available 05/27/2024 Have You Ever Been Counseled For Unhealthy Alcohol Use? No Information not available 02/26/2024 Do You Have Any Pets? No [email or web address] Information not available 02/26/2024 What Is Your Relationship Status? MIGRATION.019 [id number] Information not available 11/13/2022 Do You Use Your Seat Belt Or Car Seat Routinely? Yes MIGRATION.802 [id number] Information not available 11/13/2022 Do You Have Smoke And Carbon Monoxide Detectors In Your Home? Yes MIGRATION.912 8089009 Information not available 11/13/2022 Are You Passively Exposed To Smoke? No MIGRATION.617 2153462 Information not available 11/13/2022 Do You Or Have You Ever Used Smokeless Tobacco? Never Used Smokeless Tobacco MIGRATION.506 1743134 Information not available 11/13/2022 Are There Any Smokers In Your House? No MIGRATION.864 7194228 Information not available 11/13/2022 What Types Of Sporting Activities Do You Participate In? None [email or web address] Information not available 02/26/2024 Do You Feel Stressed (tense, Restless, Nervous, Or Anxious, Or Unable To Sleep At Night)? [id number] [email or web address] Information not available 02/26/2024 Do You Use Any Illicit Or Recreational Drugs? No MIGRATION.656 3701700 Information not available 11/13/2022 Do You Use Sunscreen Routinely? No MIGRATION.045 0255804 Information not available 11/13/2022 Has Tobacco Cessation Counseling Been Provided? No N/a Information not available 11/27/2023 Have You Recently Traveled Abroad? No MIGRATION.431 [id number] Information not available 11/13/2022 Do You Have Any Dietary Restrictions? No MIGRATION.969 6915425 Information not available 11/13/2022 Do You Or Have You Ever Used Any Other Forms Of Tobacco Or Nicotine? No MIGRATION.232 6903715 Information not available 11/13/2022 Sex: Unknown Functional Status Question Answer Note LastModified by Organizat ion Details LastModified Time Do you have difficulty walking or climbing stairs? Yes Uses cane [email or web address] Information not available 02/26/2024 Do you have transportation difficulties? No MIGRATION.[id number] Information not available 11/13/2022 Are you able to walk? YESASSIST cane or walker [email or web address] Information not available 02/26/2024 Do you have difficulty doing errands alone? No MIGRATION.875752 7987 Information not available 11/13/2022 Are you able to care for yourself? Yes MIGRATION.693290 6813 Information not available 11/13/2022 Do you have difficulty dressing or bathing? No MIGRATION.163689 4686 Information not available 11/13/2022 What is your exercise level? None MIGRATION.[id number] Information not available 11/13/2022 Mental Status Question Answer Note LastModified by Organizat ion Details LastModified Time Do you have difficulty concentrating, remembering or making decisions? No MIGRATION.[id number] 6 Information not available 11/13/2022 Family History Relationship Description Onset Age of this Age Resolved Age Notes LastModified by Organization Details LastModified Time Brother Malignant neoplastic disease MIGRATION.099 [id number] Not available 11/13/2022 14:10:22 Brother Heart disease MIGRATION.559 [id number] Not available 11/13/2022 14:10:22 Brother Depressive disorder MIGRATION.792 [id number] Not available 11/13/2022 14:10:22 Daughter Essential hypertension MIGRATION.184 [id number] Not available 11/13/2022 14:10:22 Mother Dermatomyosi tis MIGRATION.757 [id number] Not available 11/13/2022 14:10:22 Medical History Condition Response ARTHRITIS USE OF BLOOD THINNERS Y ANXIETY DISORDER Y ANEMIA/BLOOD DISORDER Y ATRIAL FIBRILLATION Y HYPOTHYROIDISM Y DIABETES, TYPE Y URINARY/BLADDER/KIDNEY PROBLEMS Y HYPERTENSION Y HIGH CHOLESTEROL / HYPERLIPIDEMIA Y Gynecological History Statement/Question Response How many [...] mcg/0.3 mL dose 06/28/2021 completed PARVIZ Mark, [place] [facility] [employer] [facility] 10/21/2024 11:35:19 COVID-19, mRNA, LNP-S, PF, 30 mcg/0.3 mL dose 06/07/2021 completed Daniella Liang RMA null, [place] [facility] 10/21/2024 11:35:19 Past Encounters Encounter ID Performer Location Encounter Start Date Encounter Closed Date Diagnosis/Indication Diagnosis SNOMED-CT Code Diagnosis ICD10 Code Diagnosis Note [id number] [facility] [address] [facility] [address] 12/18/2020 00:00:00 12/18/2020 12:34:23 [id number] [facility] [address] [address] 05/01/2021 00:00:00 05/01/2021 17:11:12 [id number] _ATHENA_M IGRATION_ DEFAULT_1 _1 , 05/11/2021 00:00:00 05/15/2021 12:05:21 [id number] [facility] [address] [address] 08/23/2021 00:00:00 08/23/2021 19:58:23 [id number] [facility] [address] [place] [address] [place] [address] 12/25/2021 00:00:00 12/25/2021 13:23:13 [id number] [facility] [place] [address] [place] [address] 02/04/2022 00:00:00 02/05/2022 11:23:38 [id number] [facility] [address] [place] [address] [place] [address] 02/12/2022 00:00:00 02/13/2022 09:55:19 [id number] [facility] [address] [place] [address] [address] [address] 04/26/2022 00:00:00 04/26/2022 13:20:58 [id number] [facility] [address] [place] [address] [place] [address] 05/03/2022 00:00:00 05/03/2022 14:55:57 [id number] [facility] [place] [address] [place] [address] 05/06/2022 00:00:00 05/07/2022 14:55:42 [id number] [facility] [address] [place] [address] [address] [address] 07/05/2022 00:00:00 07/05/2022 14:52:41 [id number] [facility] [address] [place] [address] [place] [address] 07/12/2022 00:00:00 07/12/2022 13:32:54 [id number] [facility] [address] [place] [address] 08/02/2022 00:00:00 08/02/2022 13:57:54 [id number] [facility] [place] Sathya Padilla [address] [facility] [address] [place] [address] 08/05/2022 00:00:00 08/05/2022 12:12:11 [id number] [facility] [place] [facility] [address] [place] [address] 11/01/2022 00:00:00 11/01/2022 12:53:44 [id number] WALLACE Brink [facility] [place] [facility] [address] [facility] [address] [place] [address] 01/31/2023 11:20:58 01/31/2023 11:47:00 Hypothyroidism 20692344 E03.9 on levothyrox ine Vitamin D deficiency 347 76892 E55.9 on supplement Essential hypertension 46935232 I10 on lisinopril /HCTZ- follows cardiology - Dr. Moran Hyperlipidemia 13827145 E78.5 on simvastati n Atrial fibrillation 4943 6004 I48.91 on xarelto, follows cardiology - Dr. Moran Anxiety 72546444 F41.9 never started lexapro, mood is now stablecall office if any change in mood or behavior Edema of l ower extremity 952643667 R60.0 follows cardiology , she is not wearing her compressio n stockings everyday- recommend she start doing this during the day, elevate feet when home sitting she had echo done 02/2022- EF 60%on lasix, potassium She did see Dr. Moran, he recommende d Venaseal- she continues to refuse this Mammogram declined 42103 5004 Z53.20 declines 2/2 age, risks explained including missed cancer and Colonoscopy declined 923 0645845 43173 Z53.20 declines 2/2 age, risks explained including missed cancer and Pain of bi lateral knee joints 6891872049 02146 M25.561 M25.562 Follows ortho- Dr. Muniz, has had cortisone injections in the past, may consider gel injections Intramural calcification of gallbladder 598341834 K82.8 Was referred to in summer 2019, she refuses referral, is not interested in going Also refuses repeat gallbladde r u/s, discussed increased risk of gallbladde r cancer with porcelain gallbladde r Call office if she changes her mind on referral 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 363048637 E11.9 she is not taking her metformin- encouraged her to do thisrechec k labsto eye MD for DM eye examto podiatry for DM foot carerecomm end daily foot checks, daily lotion avoiding webspaces Anemia 335780482 D64.9 on iron and B12has order for fecal immunochem istry as she has refused cscope Hammer toe 921337190 M20 .41 podiatry as above Iron deficiency 95439117 E61.1 on iron supplement Cobalamin deficiency 190 511509 E53.8 on B12 supplement Recurrent urinary tract infection 970875885 N39.0 check UA, if has another infection, may need urology referral [id number] Brianne Ko, GROUP HOME MANAGER-C [facility] Internal Med [address] [facility] [place] [address] 07/07/2023 12:05:21 07/07/2023 12:30:45 Hypothyroidism 19337005 E03.9 on levothyrox ine Vitamin D deficiency 347 79848 E55.9 on supplement Essential hypertension 38942952 I10 on lisinopril /HCTZ- follows cardiology - Dr. Moran Hyperlipidemia 19858667 E78.5 on simvastati n Atrial fibrillation 4943 6004 I48.91 on xarelto, follows cardiology - Dr. Moran Anxiety 88051488 F41.9 never started lexapro, mood is now stablecall office if any change in mood or behavior Edema of l ower extremity 627263246 R60.0 follows cardiology , she is not wearing her compressio n stockings everyday- recommend she start doing this during the day, elevate feet when home sitting she had echo done 02/2022- EF 60%on lasix, potassium She did see Dr. Moran, he recommende d Venaseal- she continues to refuse this Mammogram declined 98604 5004 Z53.20 declines 2/2 age, risks explained including missed cancer and Colonoscopy declined 296 5971176 47453 Z53.20 declines 2/2 age, risks explained including missed cancer and Pain of bi lateral knee joints 7414544146 63147 M25.561 M25.562 Follows ortho- Dr. 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 858088682 E11.9 she is not taking her metformin- encouraged her to do thisrechec k labsto eye MD for DM eye examto podiatry for DM foot carerecomm end daily foot checks, daily lotion avoiding webspaces Anemia 628631823 D64.9 on iron and B12has order for fecal immunochem istry as she has refused cscope Hammer toe 271057092 M20 .41 podiatry as above Iron deficiency 05483743 E61.1 on iron supplement Cobalamin deficiency 190 665792 E53.8 on B12 supplement Recurrent urinary tract infection 138349085 N39.0 check UA, if has another infection, may need urology referral Unable to cut own toenails 591789756 Z74.1 podiatry referral as above [id number] Heron Harley DPM [facility] Pod[facility] [place] [address] [facility] [address] [place] [address] 08/11/2023 16:31:14 08/12/2023 12:40:10 Cut of great toe 143816079 S91.111A right plantar great toewound care daily until healedIf signs of infection present seek medical attention immediatel yFollow-up as needed Dystrophia unguium 60891 009 L60.3 Nails 1 through 10 were debrided with sharp mechanical debridemen t without incident. Nails were debrided and greater than 50% length and thickness where needed. Diabetes mellitus 209636 09 E11.40 L60.0 Z74.1 Patient educated on neuropathy , diabetes, diabetic diet, and daily foot exams. Patient is to check feet daily for new wounds, blisters, redness to prevent infection and ulceration s to the feet. Patient will return to clinic in 3 months for diabetic foot workup. [id number] Sonya vigil MD [facility] [place] [facility] [address] [facility] [address] [place] [address] 11/27/2023 10:37:09 11/27/2023 11:16:53 Screening - NAD 642605434 Z13.9 C-scope/Ma mmogram/DE XA/PAP: Not doing any, declined 11/27/2023 , no complaints Get yearly flu shot, get tdap if not doneCan do Shingrix vaccineGet RSV vaccineGet PCV #20 if not done or if any series not doneGet COVID 19 vaccine and its boosters RTC in 3 months, do labs, ER if worse, she did verbalize her understand ing of the above Essential hypertension 49455941 I10 On lisinopril -HCTZ 20-25mg dailyOn metoprolol ER 25mg dailyOn K ER 10meq dailyGet labs Hypothyroidism 00510370 E03.9 On levothyrox ine 100mcgs daily Edema of l ower extremity 345057230 R60.0 On lisinopril -HCTZHas seen Dr Moran 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 921888317 E11.9 Get labs Intramural calcification of gallbladder 976214511 K82.8 Does not want any w/u or tests or referrals for this Anemia 242973667 D64.9 Get labs Hammer toe 326006215 M20 .41 See podiatry Pain of bi lateral knee joints 8027827267 46092 M25.561 M25.562 Has seen ortho in the past Dr Yaron thorne see Dr Soriano Hyperlipidemia 13606627 E78.5 On simvastati n 40mg dailyGet labs Vitamin D deficiency 347 15198 E55.9 Atrial fibrillation 4943 6004 I48.91 On xarelto 20mg dailySee Dr Moran [id number] Sonya vigil MD [facility] Internal Med [facility] [address] [facility] [address] [place] [address] 02/26/2024 10:53:06 02/26/2024 11:56:28 Adult health examination 885107740 Z00.00 Screening for disorder 518997995 Z13.9 Screening - NAD 08677125 3 Z13.9 C-scope/Ma mmogram/DE XA/PAP: Not doing [...] understand ing of the above Essential hypertension 99092638 I10 On lisinopril -HCTZ 20-25mg daily, stop thisOn losartan 25mg daily given by Dr Isaiah Gee metoprolol ER 25mg dailyOn K ER 10meq dailyGet labs Hypothyroidism 48710728 E03.9 On levothyrox ine 150mcgs daily Edema of l ower extremity 425468986 R60.0 On lisinopril -HCTZHas seen Dr Moran 12/31/2023 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 163079729 E11.9 Get labs Intramural calcification of gallbladder 507725431 K82.8 Does not want any w/u or tests or referrals for this Anemia 689759784 D64.9 Get labs Hammer toe 685630286 M20 .41 See podiatry Pain of bi lateral knee joints 0874096430 44902 M25.561 M25.562 Has seen ortho in the past Dr Yaron thorne see Dr Soriano Hyperlipidemia 27637451 E78.5 On simvastati n 40mg dailyGet labs Vitamin D deficiency 347 83745 E55.9 Atrial fibrillation 4943 6004 I48.91 On xarelto 20mg dailySee Dr Moran Chronic ki dney disease 934031149 N18.[address] Isaiah Gee calcitriol 0/25mcgs dailyOn vit D weekly [id number] Sonya vigil MD [facility] Internal [facility] [place] [address] [facility] [place], [address] [place] [address] 05/27/2024 11:24:46 05/27/2024 11:59:46 Essential hypertension [id number] I10 On lisinopril -HCTZ 20-25mg daily, stop this! Again advised to stop as she is on losartan! 05/27/2024 On losartan 25mg daily given by Dr Isaiah Gee metoprolol ER 25mg dailyOn K ER 10meq dailyGet labs Screening - NAD 09422044 3 Z13.9 C-scope/Ma mmogram/DE XA/PAP: Not doing any, declined 11/27/2023 , no complaints Get yearly flu shot, get tdap if not doneCan do Shingrix vaccineGet RSV vaccineGet PCV #20 if not done or if any series not doneGet COVID 19 vaccine and its boosters RTC in 3 months, do labs, ER if worse, she did verbalize her understand ing of the above Hypothyroidism 42511942 E03.9 On levothyrox ine 100mcgs daily Edema of l ower extremity 227707217 R60.0 On losartanOn KHas seen Dr Moran 12/31/2023 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 835724854 E11.9 Get labs Intramural calcification of gallbladder 421924505 K82.8 Does not want any w/u or tests or referrals for this Anemia 873843548 D64.9 Get labs Hammer toe 276244597 M20 .41 See podiatry Pain of bi lateral knee joints 4937830484 77689 M25.561 M25.562 Has seen ortho in the past Dr Marrufo w see Dr Soriano Hyperlipidemia 99555587 E78.5 On simvastati n 40mg dailyGet labs Vitamin D deficiency 347 52431 E55.9 Atrial fibrillation 4943 6004 I48.91 On xarelto 20mg daily[address] Dr Moran Chronic ki dney disease 536206565 N18.[address] Isaiah CANNON, last OV 02/03/2024 On calcitriol 0/25mcgs dailyOn vit D weekly 3665753 Sonya vigil MD [facility] [address] [facility] [address] [place] [address] 09/21/2024 16:50:18 09/21/2024 17:46:05 Essential hypertension 23723745 I10 Not on lisinopril -HCTZ 20-25mg daily On losartan 25mg daily given by Dr Angel IJNot on metoprolol ER 25mg dailyOn K ER 10meq dailyGet labs Screening - NAD 08247468 3 Z13.9 C-scope/Ma mmogram/DE XA/PAP: Not doing [...] her understand ing of the above Hypothyroidism 90464666 E03.9 On levothyrox ine 100mcgs daily Edema of l ower extremity 815548293 R60.0 On losartanOn KHas seen Dr Moran 12/31/2023 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 147999058 E11.9 Get labs Intramural calcification of gallbladder 824473527 K82.8 Does not want any w/u or tests or referrals for this Anemia 998030324 D64.9 Get labs Hammer toe 375563850 M20 .41 See podiatry Pain of bi lateral knee joints 9043749847 02314 M25.561 M25.562 Has seen ortho in the past Dr Marrufo w see Dr Soriano Hyperlipidemia 36651763 E78.5 Not on simvastati n 40mg dailyOn rosuvastat in 40mg dailyGet labs Vitamin D deficiency 347 77617 E55.9 Repeat the vit d level Atrial fibrillation 4943 6004 I48.91 On xarelto 20mg dailySee Dr Moran Chronic ki dney disease 551702047 N18.[address] Angel IJ, last OV 02/03/2024 On calcitriol 0/25mcgs dailyOn vit D weekly Transition of care 26609 45936 105 Z75.8 Unsteady when walking 22 135353 R26.89 Uses a walker, get a lightweigh t wheelchair , as this would help her in the ADLs and IADLs and help with mobility [id number] Sonya vigil MD [facility] [address] [facility] [address] [place] [address] 11/10/2024 17:04:04 11/10/2024 18:02:20 Essential hypertension 54373106 I10 Not on lisinopril -HCTZ 20-25mg daily On losartan 25mg daily given by Dr Isaiah CANNONNot on metoprolol ER 25mg dailyOn K ER 10meq dailyGet labs Screening - NAD 88388197 3 Z13.9 C-scope/Ma mmogram/DE XA/PAP: Not doing any, declined 11/27/2023 , no complaints Get yearly flu shot, get tdap if not doneCan do Shingrix vaccineGet RSV vaccineGet PCV #20 if not done or if any series not doneGet COVID 19 vaccine and its boosters RTC in 1 months, do labs, ER if worse, she did verbalize her understand ing of the above Hypothyroidism 16436050 E03.9 On levothyrox ine 100mcgs daily Edema of l ower extremity 915245982 R60.0 On losartanOn KHas seen Dr Moran 12/31/2023 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 785345268 E11.9 Get labs Intramural calcification of gallbladder 925413739 K82.8 Does not want any w/u or tests or referrals for this Anemia 141406895 D64.9 Get labs Hammer toe 770301157 M20 .41 See podiatry Pain of bi lateral knee joints 4993045264 13031 M25.561 M25.562 Has seen ortho in the past Dr Marrufo w see Dr Soriano Hyperlipidemia 27120669 E78.5 Not on simvastati n 40mg dailyOn rosuvastat in 40mg dailyGet labs Vitamin D deficiency 347 68575 E55.9 Repeat the vit d level Atrial fibrillation 4943 6004 I48.91 On xarelto 20mg daily[address] Dr Moran Chronic ki dney disease 578719939 N18.[address] Isaiah CANNON, last OV 02/03/2024 On calcitriol 0/25mcgs dailyOn vit D weekly Unsteady when walking 22 297688 R26.89 Uses a walker, get a lightweigh t wheelchair , as this would help her in the ADLs and IADLs and help with mobilityOV 11/10/2024 : Declined getting a wheelchair , states that she uses her cane and she does have a walker Cellulitis of lower limb 354022817 L03.119 Seen in the ER 11/08/2024 , now on doxycyclin eStates that she did see Dr Dean VILLALOBOS and the antibiotic has helped Anxiety 29084195 F41.9 See case, as per daughter the patient is worried about her son, who has cancer, not suicidal or homicidal, wants a 'nerve pill', will start on very limited and low dose alprazolam , all side effects explained to her [id number] Heron Harley DPM [facility] [place] [address] [place] [address] 11/15/2024 11:22:48 11/17/2024 08:09:22 Cellulitis of right lower limb 9487042451 0911756 L03.115 finish antibiotic sif worsening seek medical attention immediatel y Abscess of skin of right ankle 7535697696 0427991 L02.415 medial anklelance d and expressed of fluiddress ing applied with mild compressio napply Betadine wet-to-dry dressing dailyFollo w-up in 1 week Lymphedema of lower extremity 846813800 I89.0 recommend chronic compressio n therapy, reviewed treatment optionsrec ommend support compressio n socks since patient is unable to wear compressio n stockings Right lowe r leg blister with infection 5703635264 7029160 L08.9 as above [id number] Heron Harley DPM [facility] [place] [address] [place] [address] 11/25/2024 14:07:53 11/25/2024 14:33:26 Cellulitis of right lower limb 7248480908 6041896 L03.115 resolved Dystrophia unguium 14824 009 L60.3 Nails 1 through 10 were debrided with sharp mechanical debridemen t without incident. Nails were debrided and greater than 50% length and thickness where needed. Tear of skin 823209024 T 14.8XXA right lower leg z2lybcruiy on wound careeducat ed on daily dressingsF ollow-up in 1 week if not healed Health Concerns Section Related Observation LastModified by Organization Detai ls LastModified Time None Recorded Concern Status LastModified by Organization Details LastModified Time None Recorded Advance Directives Directive N: information provided Payers Encounter Date Sequence Insurance Name Policy Number Policy Shoemaker Covered Member ID Shoemaker Member ID Guarantor Name 05/27/2024 1 [employer] (MEDICARE REPLACEMENT/A DVANTAGE - PPO) Wendy Lashell Rose [id number] Wendylori Rose 09/21/2024 1 [employer] (MEDICARE REPLACEMENT/A DVANTAGE - PPO) Wendylori Rose [id number] Wendylori Rose 11/10/2024 1 [employer] (MEDICARE REPLACEMENT/A DVANTAGE - PPO) Wendylori Rose [id number] Wendylori Rose 11/15/2024 1 [employer] (MEDICARE REPLACEMENT/A DVANTAGE - PPO) Wendy Rose [id number] Wendy Rose 11/25/2024 1 [employer] (MEDICARE REPLACEMENT/A DVANTAGE - PPO) Wendylori Rose [id number] Wendy Rose Notes Date Note Type Note Provider Name and Address Organization Details Recorded Time 05/27/2024 text/html OV 11/27/2023:He re to establish care Present hx:HTNHLDHypjose r idism Here to discuss above and get labs OV 02/26/2024: Here for her f/u apt, she is doing well, she is here for her MWV also, no new labs is willing to do them today as she is fasting OV 05/27/2024: Here for her f/u apt, she feels well today, no new labs Sonya Jackson MD [address] [place] [address], [address], [place], [address], [facility] 06/14/2024 19:03:37 09/21/2024 text/html OV 11/27/2023:He re to establish care Present hx:HTNHLDHypothyroberth idism Here to discuss above and get [...] daughter Kathy, was admitted and d/c from [facility] for UTI, and ? TIA, now is done with her cipro and feels at her baseline, the daughter would like her to get a wheelchair Sonya Jackson MD [address] [facility], [facility] [address], [place], [address], [employer] 09/22/2024 14:38:18 11/10/2024 text/html OV 11/27/2023:He re to establish care [...] daughter Kathy, was admitted and d/c from [facility] for UTI, and ? TIA, now is done with her cipro and feels at her baseline, the daughter would like her to get a wheelchair OV 11/10/2024: Here for her f/u apt, she has been recently seen in the ER for cellulitis, states that she is worried about her son who has cancer, her daughter did send in a case, to consider her getting a 'nerve pill' Sonya Jackson MD [address] [facility], [facility] [address], [place], [address], [employer] 11/10/2024 18:05:38 11/15/2024 text/html . Patient is an 84-year-old female she presents the office with complaints a wound and recurrent infections the medial aspect of the ankle right lower extremity. Patient states she suffers from swelling which she has had recurrent blistering of the lower extremity. Patient states she developed a new blister she is currently on antibiotics secondary to redness of the lower extremity which appears to be almost resolved. Patient denies any fever, chills, nausea vomiting. Patient denies any other complaints. Patient denies any use of chronic compression she states her stockings that she has at home she can not get on closer to difficult. Heron Harley DPM [address], [facility] [address], [place], [address], [facility] [employer] [facility] 11/15/2024 13:22:02 11/25/2024 text/html . Patient is 84-year-old female who presents for follow-up on cellulitis of the right lower leg she is doing much better the cellulitis is completely resolved. She remove the bandage and had a area that was stuck to the skin and she caused a small skin tear. Patient denies any fever, chills, nausea vomiting. Patient states she does want her nails cut as they are thickened elongated and she is unable to cut them. Patient denies any other complaints. Heron Harley DPM [address], [facility] [address], [place], [address], [employer] 11/25/2024 14:33:25 OBGyn Episode No OBEpisode recorded.
--- OUTSIDE RECORDS SUMMARY | 2024-11-26 12:18 | XMS_ITS | Patient Health Summary ---
Author Organization [facility] [employer] Address [address] [place] [address] Care Team Providers Care Web Mobile Designer Name Role Phone Brianne Ko SANTOSH-BARRERA Primary Care Provider [phone] Note from [facility],non-owned Affiliates and Associated Physician Practices is amultiple site organization consisting of ambulatory clinics and hospital sitesin [place], [place], [place] and [place]. This disclosure is being madepursuant to the Care Everywhere program and may not contain all information available regarding this patient. Last updated 18.[facility] Allergies No known active allergies [...] Comments Blood Pressure 172/72 09/14/2024 11:16 AM UNHAIRING INSPECTOR Pulse 88 09/14/2024 11:17 AM UNHAIRING INSPECTOR Temperature 36.7 C (98 F) 09/13/2024 10:47 PM UNHAIRING INSPECTOR Respiratory Rate 18 09/14/2024 11:17 AM UNHAIRING INSPECTOR Oxygen Saturation 95% 09/14/2024 11:17 AM UNHAIRING INSPECTOR Inhaled Oxygen Concentration - - Weight 88.9 kg (196 lb) 09/13/2024 9:36 AM UNHAIRING INSPECTOR Height 162.6 cm (5' 4 ) 09/13/2024 8:32 PM UNHAIRING INSPECTOR Body Mass Index 37.03 09/13/2024 9:36 AM UNHAIRING INSPECTOR Procedures * CARDIAC EKG ORDER(Performed 09/14/2024) * [...] * CARDIAC EKG ORDER (09/14/2024 1:29 PM UNHAIRING INSPECTOR) Narrative 09/14/2024 1:29 PM UNHAIRING INSPECTOR Ordered by an unspecified provider. Scanned Document CARDIAC SERVICES ORD ERABLES * CT Head Wo Contrast (09/14/2024 6:00 AM UNHAIRING INSPECTOR) Anatomical Region Laterality Modality Head Computed Tomogra phy 09/14/2024 6:00 AM UNHAIRING INSPECTOR Impressions 09/14/2024 10:22 AM UNHAIRING INSPECTOR IMPRESSION: 1.No acute intracranial hemorrhage, midline shift, or significant mass effect. > Dictated by Jaswant Anaya MD (Vehicle Check In Clerk) I, Luan Rouse MD have personally reviewed and interpreted this examination/study. > Interpreting Provider: Luan Rouse MD on 09/14/2024 10:22 AM Narrative 09/14/2024 10:22 AM UNHAIRING INSPECTOR PROCEDURE: CT HEAD WO CONTRAST, DATE/TIME OF EXAM: 09/14/2024 6:00 AM, LOCATION [facility] INDICATION: R40.4: Transient alteration of awareness R29.810: [...] DATE/TIME OF EXAM: 09/14/2024 6:00 AM, LOCATION [facility] INDICATION: R40.4: Transient alteration of awareness R29.810: [...] effect. > Dictated by Jaswant Anaya MD (Vehicle Check In Clerk) I, Luan Rouse MD have personally reviewed and interpreted this examination/study. > Interpreting Provider: Luan Rouse MD on 09/14/2024 10:22 AM Lauri Girard MD CT ORDERABLES * (ABNORMAL) CBC W/O DIFFERENTIAL (09/14/2024 2:15 AM UNHAIRING INSPECTOR) Only the most recent of2 resultswithin the time period is included. WBC 11.4(H) 4.0 - 10.7 x10E9/L 09/14/2024 3:14 AM [facility] RBC Count 4.80 3.90 - 5.20 x10E12/L 09/14/2024 3:14 AM [facility] Hemoglobin 14.4 11.9 - 15.8 g/dL 09/14/2024 3:14 AM [facility] Hematocrit 43.4 34.8 - 46.1 % 09/14/2024 3:14 AM [facility] MCV 90.4 80.0 - 98.0 fL 09/14/2024 3:14 AM [facility] MCH 30.0 26.7 - 33.6 pg 09/14/2024 3:14 AM [facility] MCHC 33.2 31.7 - 36.3 g/dL 09/14/2024 3:14 AM [facility] RDW-CV 13.9 11.3 - 14.8 % 09/14/2024 3:14 AM [facility] Platelet Count 09/14/2024 3:14 AM [facility] Comment:Platelets clumped on slide but appears decreased. Recommend repeat with a sodium citrate blue top tube. MPV 09/14/2024 3:14 AM UNHAIRING INSPECTOR [facility] Comment:Unable to report Blood BLOOD SPECIMEN / Unknown Venipuncture / Unknown 09/14/2024 2:15 AM UNHAIRING INSPECTOR 09/14/2024 2:40 AM UNHAIRING INSPECTOR Nacho Clay DO LAB - HEMATOLOGY ORD ERABLES [facility] [address] [place] [address], [facility] [phone] * (ABNORMAL) BASIC METABOLIC PANEL (CALCIUM TOTAL) (09/14/2024 2:15 AM UNHAIRING INSPECTOR) Only the most recent of2 resultswithin the time period is included. BUN 17 7 - 26 mg/dL 09/14/2024 3:07 AM [facility] Creatinine 0.90 0.56 - 0.96 mg/dL 09/14/2024 3:07 AM [facility] Sodium 142 136 - 145 mmol/L 09/14/2024 3:07 AM [facility] Potassium 3.4(L) 3.5 - 4.5 mmol/L 09/14/2024 3:07 AM [facility] Chloride 104 98 - 107 mmol/L 09/14/2024 3:07 AM [facility] CO2 23 22 - 29 mmol/L 09/14/2024 3:07 AM [facility] Glucose 205(H) 70 - 99 mg/dL 09/14/2024 3:07 AM [facility] Calcium 9.7 8.4 - 10.2 mg/dL 09/14/2024 3:07 AM [facility] Anion Gap 15 6 - 16 09/14/2024 3:07 AM [facility] BUN/Creatinine Ratio 19 7 - 23 09/14/2024 3:07 AM [facility] Osmolality Calculated 301(H) 275 - 295 mOsm/kg 09/14/2024 3:07 AM [facility] eGFR by CKD-EPI 63(L) >=90 mL/min/1.7 3 m2 09/14/2024 3:07 AM [facility] Blood BLOOD SPECIMEN / Unknown Venipuncture / Unknown 09/14/2024 2:15 AM UNHAIRING INSPECTOR 09/14/2024 2:40 AM UNHAIRING INSPECTOR Nacho Clay DO LAB - CHEMISTRY ORDE SHERIDAN Performing Organization Address [facility]/ZIP Co de Phone Number [address] [address], [place] [phone] * (ABNORMAL) GLUCOSE - POINT OF CARE (09/13/2024 10:46 PM UNHAIRING INSPECTOR) Only the most recent of3 resultswithin the time period is included. Glucose WB/POC 133(H) 70 - 99 mg/dL 09/13/2024 10:47 PM UNHAIRING INSPECTOR [facility] Specimen Type Cap Fingerstick 2023 10:47 PM UNHAIRING INSPECTOR [facility] Blood BLOOD SPECIMEN / Unknown 09/13/2024 10:46 PM UNHAIRING INSPECTOR 09/13/2024 10:47 PM UNHAIRING INSPECTOR Lauri Girard MD LAB - POINT OF CARE ORDERABLES Performing Organization Address [facility]/ZIP Co de Phone Number [address] [address], [place] [phone] * (ABNORMAL) TROPONIN-I HIGH SENSITIVE (09/13/2024 1:22 PM UNHAIRING INSPECTOR) [facility] Troponin I High Sensitive 18(H) <=14 ng/L 09/13/2024 2:08 PM UNHAIRING INSPECTOR [facility] Blood BLOOD SPECIMEN / Unknown Venipuncture / Unknown 09/13/2024 1:22 PM UNHAIRING INSPECTOR 09/13/2024 1:33 PM UNHAIRING INSPECTOR Lauri Girard MD LAB - CHEMISTRY ORDE SHERIDAN Performing Organization Address [facility]/ZIP Co de Phone Number [address] [address], [place] [phone] * (ABNORMAL) TROPONIN-I HIGH SENSITIVE REFLEX 1HOUR (09/13/2024 8:49 AM UNHAIRING INSPECTOR) Troponin I High Sensitive 20(H) <=14 ng/L 09/13/2024 9:34 AM [facility] Delta Troponin I HS 09/13/2024 9:34 AM [facility] Comment:Delta value intentio turner not calculated. Baseline to 1 hour specimen collection interval exceeded. Blood BLOOD SPECIMEN / Unknown Venipuncture / Unknown 09/13/2024 8:49 AM UNHAIRING INSPECTOR 09/13/2024 8:55 AM UNHAIRING INSPECTOR Nacho Clay LAB - CHEMISTRY ORDE RABLES Performing Organization Address [facility]/ZIP Co de Phone Number [facility] [address] [place] [address], [facility] [phone] * BLOOD TYPE VERIFICATION (09/13/2024 8:49 AM UNHAIRING INSPECTOR) ABO Rh A POS 09/13/2024 9:4 9 AM [facility] BLOOD BANK LAB Blood Bank BLOOD SPECIMEN / Unknown Venipuncture / Unknown 09/13/2024 8:49 AM UNHAIRING INSPECTOR 09/13/2024 9:05 AM UNHAIRING INSPECTOR Nacho Clay LAB - BLOOD BANK ORD ERABLES Performing Organization Address [facility]/ZIP Co de Phone Number [facility] BLOOD BANK LAB [address] [place] [address], [facility] [phone] * (ABNORMAL) URINALYSIS W/MICROSCOPIC NO CULTURE (09/13/2024 8:45 AM UNHAIRING INSPECTOR) Color UA Rowena(A) Straw, Yellow 09/13/2024 9:13 AM [facility] Clarity UA Cloudy(A) Clear 09/13/2024 9:13 AM [facility] Specific [place] UA 1.034(H) 1.005 - 1.030 09/13/2024 9:13 AM [facility] pH UA 7.0 5.0 - 8.0 pH 09/13/2024 9:13 AM [facility] Protein UA 2+(A) Negative 09/13/2024 9:13 AM [facility] Glucose UA Negative Negative 09/13/2024 9:13 AM [facility] Ketone UA Negative Negative 09/13/2024 9:13 AM [facility] Bilirubin UA Negative Negative 09/13/2024 9:13 AM [facility] Blood UA 1+(A) Negative 09/13/2024 9:13 AM [facility] Nitrite UA Negative Negative 09/13/2024 9:13 AM [facility] Leukocyte Esterase Trace(A) Negative 09/13/2024 9:13 AM [facility] Urobilinogen UA 2.0(A) Negative mg/dL 09/13/2024 9:13 AM [facility] RBC UA 21-50(A) None Seen, 0-2, 3-5 /HPF 09/13/2024 9:13 AM [facility] WBC UA 6-10(A) None Seen, 0-5 /HPF 09/13/2024 9:13 AM [facility] Bacteria UA 3+(A) None /HPF 09/13/2024 9:13 AM [facility] Squamous Epithelial Cells UA 3-5 None Seen, 0-2, 3-5 /HPF 09/13/2024 9:13 AM [facility] Mucus UA 1+ /LPF 09/13/2024 9:13 AM [facility] Amorphous Crystals Few(A) None /HPF 09/13/2024 9:13 AM [facility] Urine URINE SPECIMEN OBTAINED BY CLEAN CATCH PROCEDURE / Unknown Collection / Unknown 09/13/2024 8:45 AM UNHAIRING INSPECTOR 09/13/2024 8:55 AM [facility] - 09/13/2024 9:13 AM [facility] Nacho Clay DO LAB - URINALYSIS ORD ERABLES [facility] [address] [place] [address], [facility] [phone] * (ABNORMAL) HEMOGLOBIN A1C (09/13/2024 6:00 AM [facility]) Hemoglobin A1c 6.8(H) <=5.6 % 09/14/2024 9:53 AM [facility] Estimated Average Glucose 148 mg/dL 09/14/2024 9:53 AM [facility] Comment: HbA1c Interpretation: Normal : < 5.7% Pre-diabetes: 5.7-6.4% Diabetes: Equal to or greater than 6.5% Test results diagnostic of diabetes should be repeated for confirmation. Treatment target values recommended by ADA and other clinical organizations should be used to evaluate metabolic control in patients. Reference: [place] [employer] Association, Standards of Care in Diabetes -2020 In patients 70 years and older consider HbA1c target range of 7.0-7.5% (Reference: Neel Galvez et al. JAMDA. 2012) The Sebia assay for the measurement of HbA1c is a National Glycohemoglobin Standardization Program (NGSP) certified method. Blood BLOOD SPECIMEN / Unknown Venipuncture / Unknown 09/13/2024 6:00 AM UNHAIRING INSPECTOR 09/13/2024 8:53 PM UNHAIRING INSPECTOR Kareem Bagley MD LAB - CHEMISTRY KAITLYNN SWARTZ [facility] Organization Address City/State/ZIP Co de Phone Number [address] [address], [facility] [phone] * (ABNORMAL) LIPID PROFILE (09/13/2024 6:00 AM UNHAIRING INSPECTOR) Cholesterol Total 170 <200 mg/dL 09/13/2024 6:49 AM [facility] HDL 55 >40 mg/dL 09/13/2024 6:49 AM [facility] Comment: ATP III Classification of HDL Cholesterol: <40 mg/dL: Considered a major risk factor. >60 mg/dL: Considered a negative risk factor. LDL Calculated 82 <100 mg/dL 09/13/2024 6:49 AM [facility] Comment: ATP III Classification of LDL Cholesterol: <100 mg/dL: Optimal 100 - 129 mg/dL: Near Optimal/Above Optimal 130 - 159 mg/dL: Borderline High 160 - 189 mg/dL: High >190 mg/dL: Very High Triglycerides 163(H) <150 mg/dL 09/13/2024 6:49 AM [facility] Comment: ATP III Classification of Triglycerides: <150 mg/dL: Normal 150 - 199 mg/dL: Borderline High 200 - 400 mg/dL: High >500 mg/dL: Very High Blood BLOOD SPECIMEN / Unknown Venipuncture / Unknown 09/13/2024 6:00 AM UNHAIRING INSPECTOR 09/13/2024 6:27 AM UNHAIRING INSPECTOR Nacho Claudio Clay DO LAB - CHEMISTRY MILKAAshly SHERIDAN Performing Organization Address City/[facility]/ZIP Co de Phone Number [address] [address], [facility] [phone] * TROPONIN-I HIGH SENSITIVE BASELINE + 1HR (09/12/2024 7:10 PM UNHAIRING INSPECTOR) Troponin I High Sensitive 12 <=14 ng/L 09/12/2024 7:49 PM UNHAIRING INSPECTOR [facility] Blood BLOOD SPECIMEN / Unknown Venipuncture / Unknown 09/12/2024 7:10 PM UNHAIRING INSPECTOR 09/12/2024 7:30 PM UNHAIRING INSPECTOR Nacho Clay DO LAB - CHEMISTRY KAITLYNN SWARTZ Performing Organization Address [facility]/ZIP Co de Phone Number [address] [address], [facility] [phone] * (ABNORMAL) TSH REFLEX FREE T4 (09/12/2024 7:10 PM UNHAIRING INSPECTOR) TSH 24.558(H) 0.350 - 4.940 uIU/mL 09/12/2024 9:14 PM UNHAIRING INSPECTOR [facility] Blood BLOOD SPECIMEN / Unknown Venipuncture / Unknown 09/12/2024 7:10 PM UNHAIRING INSPECTOR 09/12/2024 7:30 PM UNHAIRING INSPECTOR Lauri Girard MD LAB - CHEMISTRY KAITLYNN SWARTZ [address] [address], [place] [phone] * PHOSPHORUS BLOOD (09/12/2024 7:10 PM UNHAIRING INSPECTOR) Phosphorus 3.2 2.9 - 5.1 mg/dL 09/12/2024 7:50 PM UNHAIRING INSPECTOR [facility] Blood BLOOD SPECIMEN / Unknown Venipuncture / Unknown 09/12/2024 7:10 PM UNHAIRING INSPECTOR 09/12/2024 7:30 PM UNHAIRING INSPECTOR Lauri Girard MD LAB - CHEMISTRY KAITLYNN SWARTZ Performing Organization Address City/[facility]/ZIP Co de Phone Number [address] [address], [place] [phone] * MAGNESIUM BLOOD (09/12/2024 7:10 PM UNHAIRING INSPECTOR) Pathologist [facility] Magnesium 1.8 1.6 - 2.6 mg/dL 09/12/2024 7:50 PM UNHAIRING INSPECTOR [facility] Blood BLOOD SPECIMEN / Unknown Venipuncture / Unknown 09/12/2024 7:10 PM UNHAIRING INSPECTOR 09/12/2024 7:30 PM UNHAIRING INSPECTOR Lauri Girard MD LAB - CHEMISTRY KAITLYNN SWARTZ Performing Organization Address [facility] Co de Phone Number [address] [address], [place] [phone] * T4 FREE (09/12/2024 7:10 PM UNHAIRING INSPECTOR) Pathologist [facility] T4 Free 0.7 0.7 - 1.5 ng/dL 09/12/2024 9:47 PM UNHAIRING INSPECTOR [facility] Blood BLOOD SPECIMEN / Unknown Venipuncture / Unknown 09/12/2024 7:10 PM UNHAIRING INSPECTOR 09/12/2024 7:30 PM UNHAIRING INSPECTOR Lauri Girard MD LAB - CHEMISTRY KAITLYNN SWARTZ Performing Organization Address [facility]/ZIP Co de Phone Number [address] [address], [place] [phone] * EKG 12-LEAD (09/12/2024 7:04 PM UNHAIRING INSPECTOR) Ventricular Rate 97 BPM [facility] MUSE Atrial Rate 97 BPM [facility] MUSE P-R Interval 186 ms [facility] MUSE QRS Duration ms 106 ms [facility] MUSE Q-T Interval ms 388 ms [facility] MUSE QTC Calculation (Bezet) 492 ms [facility] MUSE Calculated P [place] 60 degrees [facility] MUSE Calculated R [place] -29 degrees [facility] Calculated T [place] 94 degrees [facility] Interpretation EKG NORMAL SINUS RHYTHM MINIMAL VOLTAGE CRITERIA FOR LVH, MAY BE NORMAL VARIANT ( [place] product ) ANTEROSEPTAL INFARCT , AGE UNDETERMINED ABNORMAL ECG NO PREVIOUS ECGS AVAILABLE Confirmed by JEREMIAH CANNON MD ([id number]) on 09/15/2024 2:33:28 PM [facility] 09/12/2024 7:04 PM UNHAIRING INSPECTOR 09/15/2024 2:33 PM UNHAIRING INSPECTOR Nacho Clay DO ECG ORDERABLES [facility] MUSE * XR Chest 1Vw Portable (09/12/2024 6:54 PM UNHAIRING INSPECTOR) Anatomical Region Laterality Modality Chest Digital Radiogra phy 09/12/2024 7:53 PM UNHAIRING INSPECTOR Narrative 09/12/2024 8:45 PM UNHAIRING INSPECTOR PROCEDURE: XR CHEST 1VW PORTABLE, DATE/TIME OF EXAM: 09/12/2024 7:05 PM, LOCATION [facility] INDICATION: R47.01: Aphasia R40.4: Transient alteration of [...] visualized. Report dictated by Maikel Marr MD (consultant luxury and auto. vice president [employer] (ex )). IKlarissa MD have personally reviewed and interpreted this examination/study. > Interpreting Provider: Klarissa Munoz MD on 09/12/2024 8:45 PM Procedure Note Klarissa Munoz MD - 09/12/2024 PROCEDURE: XR CHEST 1VW PORTABLE, DATE/TIME OF EXAM: 09/12/2024 7:05PM, LOCATION [facility] INDICATION: R47.01: Aphasia R40.4: Transient alteration of [...] visualized. Report dictated by Maikel Marr MD (consultant luxury and auto. vice president [employer] (ex )). I, Klarissa Munoz MD have personally reviewed and interpreted this examination/study. > Interpreting Provider: Klarissa Munoz MD on 09/12/2024 8:45 PM Nacho R Samanthaesi DO DIAGNOSTIC IMAGING O RDERABLES * CT ANGIO BRAIN NECK STROKE (09/12/2024 6:42 PM UNHAIRING INSPECTOR) Anatomical Region Laterality Modality Head Computed Tomogra phy 09/12/2024 6:57 PM UNHAIRING INSPECTOR Impressions 09/12/2024 7:19 PM UNHAIRING INSPECTOR IMPRESSION: 1. No acute intracranial hemorrhage. 2. No large arterial occlusions or significant stenoses identified in the head or neck. Viz.AI was used for large vessel occlusion detection. > Interpreting Provider: Milagros Flores MD on 09/12/2024 7:19 PM Narrative 09/12/2024 7:19 PM UNHAIRING INSPECTOR PROCEDURE: CT ANGIO BRAIN NECK STROKE, DATE/TIME OF EXAM: 09/12/2024 6:43 PM, LOCATION [facility] INDICATION: Code Stroke ADDITIONAL CLINICAL INFORMATION: Ordering [...] STROKE, DATE/TIME OF EXAM: :43 PM, LOCATION [facility] INDICATION: Code Stroke ADDITIONAL CLINICAL INFORMATION: Ordering [...] * PT-INR [facility] (09/12/2024 6:39 PM UNHAIRING INSPECTOR) PT 12.9 12.1 - 14.8 Seconds 09/12/2024 7:05 PM UNHAIRING INSPECTOR [facility] INR 1.0 See Comment 09/12/2024 7:05 PM UNHAIRING INSPECTOR [facility] Comment:The suggested therap eutic range for standard coumadin (warfarin) therapy is an INR of 2.0-3.0. For high-risk patients (Mechanical Mitral Valve Prosthesis, etc.), the suggested prophylactic therapeutic range is an INR of 2.5-3.5. Blood BLOOD SPECIMEN / Unknown Venipuncture / Unknown 09/12/2024 6:39 PM UNHAIRING INSPECTOR 09/12/2024 6:45 PM UNHAIRING INSPECTOR Nacho Clay DO LAB - COAGULATION OR DERABLES Performing Organization Address City/[facility]/ZIP Co de Phone Number [facility] LABORATORY [facility] [address] [place] [address], [facility] [phone] * TYPE + SCREEN PANEL (09/12/2024 6:39 PM UNHAIRING INSPECTOR) Pathologist [facility] Antibody Screen NEG 7:42 PM UNHAIRING INSPECTOR [facility] BLOOD BANK LAB ABO Rh A POS 09/12/2024 7:42 PM UNHAIRING INSPECTOR [facility] BLOOD BANK LAB Blood Bank BLOOD SPECIMEN / Unknown Venipuncture / Unknown 09/12/2024 6:39 PM UNHAIRING INSPECTOR 09/12/2024 6:50 PM UNHAIRING INSPECTOR Nacho Clay DO LAB - BLOOD BANK ORD ERABLES Performing Organization Address City/[facility]/ZIP Co de Phone Number [facility] BLOOD BANK LAB [address] [place] [address], [facility] [phone] * CBC W AUTO DIFFERENTIAL (09/12/2024 6:39 PM UNHAIRING INSPECTOR) Pathologist [facility] WBC 6.5 4.0 - 10.7 x10E9/L 09/12/2024 7:23 PM [facility] RBC Count 4.29 3.90 - 5.20 x10E12/L 09/12/2024 7:23 PM [facility] Hemoglobin 12.9 11.9 - 15.8 g/dL 09/12/2024 7:23 PM [facility] Hematocrit 38.5 34.8 - 46.1 % 09/12/2024 7:23 PM [facility] MCV 89.7 80.0 - 98.0 fL 09/12/2024 7:23 PM [facility] MCH 30.1 26.7 - 33.6 pg 09/12/2024 7:23 PM [facility] MCHC 33.5 31.7 - 36.3 g/dL 09/12/2024 7:23 PM [facility] RDW-CV 13.8 11.3 - 14.8 % 09/12/2024 7:23 PM [facility] Platelet Count 09/12/2024 7:23 PM [facility] Comment:Platelets clumped on slide but appears adequate. Recommend repeat with a sodium citrate blue top tube. MPV 09/12/2024 7:23 PM [facility] Comment:Unable to report Neutrophil % 68.5 41.0 - 74.0 % 09/12/2024 7:23 PM [facility] Lymphocyte % 21.5 17.0 - 47.0 % 09/12/2024 7:23 PM [facility] Monocyte % 7.3 3.0 - 11.0 % 09/12/2024 7:23 PM [facility] Eosinophil % 2.2 0.0 - 7.0 % 09/12/2024 7:23 PM [facility] Basophil % 0.3 0.0 - 1.6 % 09/12/2024 7:23 PM [facility] Immature Granulocytes % 0.2 0.0 - 1.0 % 09/12/2024 7:23 PM [facility] Neutrophil Absolute 4.45 1.60 - 7.50 x10E9/L 09/12/2024 7:23 PM [facility] Lymphocyte Absolute 1.39 1.00 - 4.40 x10E9/L 09/12/2024 7:23 PM [facility] Monocyte Absolute 0.47 0.15 - 1.00 x10E9/L 09/12/2024 7:23 PM [facility] Eosinophil Absolute 0.14 0.00 - 0.60 x10E9/L 09/12/2024 7:23 PM [facility] Basophil Absolute 0.02 0.00 - 0.13 x10E9/L 09/12/2024 7:23 PM [facility] Blood BLOOD SPECIMEN / Unknown Venipuncture / Unknown 09/12/2024 6:39 PM UNHAIRING INSPECTOR 09/12/2024 6:45 PM UNHAIRING INSPECTOR Nacho Clay DO LAB - HEMATOLOGY ORD ERABLES [facility] [address] [place] [address], [facility] [phone] * (ABNORMAL) COMPREHENSIVE METABOLIC PANEL (09/12/2024 6:39 PM [facility]) BUN 20 7 - 26 mg/dL 09/12/2024 7:11 PM [facility] Creatinine 0.85 0.56 - 0.96 mg/dL 09/12/2024 7:11 PM [facility] Sodium 142 136 - 145 mmol/L 09/12/2024 7:11 PM [facility] Potassium 4.3 3.5 - 4.5 mmol/L 09/12/2024 7:11 PM [facility] Chloride 107 98 - 107 mmol/L 09/12/2024 7:11 PM [facility] CO2 26 22 - 29 mmol/L 09/12/2024 7:11 PM [facility] Glucose 152(H) 70 - 99 mg/dL 09/12/2024 7:11 PM [facility] Calcium 9.2 8.4 - 10.2 mg/dL 09/12/2024 7:11 PM [facility] Protein Total 7.2 6.0 - 8.3 g/dL 09/12/2024 7:11 PM [facility] Albumin 4.1 3.4 - 5.0 g/dL 09/12/2024 7:11 PM [facility] Bilirubin Total 0.6 0.2 - 1.2 mg/dL 09/12/2024 7:11 PM [facility] Alkaline Phosphatase 76 40 - 150 U/L 09/12/2024 7:11 PM [facility] ALT 14 5 - 55 U/L 09/12/2024 7:11 PM [facility] AST 18 5 - 34 U/L 09/12/2024 7:11 PM [facility] Anion Gap 9 6 - 16 09/12/2024 7:11 PM [facility] BUN/Creatinine Ratio 24(H) 7 - 23 09/12/2024 7:11 PM [facility] Osmolality Calculated 300(H) 275 - 295 mOsm/kg 09/12/2024 7:11 PM [facility] Albumin/Globulin Ratio 1.3 1.1 - 2.3 09/12/2024 7:11 PM [facility] eGFR by CKD-EPI 68(L) >=90 mL/min/1.7 3 m2 09/12/2024 7:11 PM [facility] Blood BLOOD SPECIMEN / Unknown Venipuncture / Unknown 09/12/2024 6:39 PM UNHAIRING INSPECTOR 09/12/2024 6:45 PM UNHAIRING INSPECTOR Nacho Clay DO LAB - CHEMISTRY ORDE RABLES [address] [address], [facility] [phone] * CREATININE - POCT INTERFACED (09/12/2024 6:36 PM UNHAIRING INSPECTOR) Creatinine POCT 0.54 0.30 - 1.30 mg/dL 09/12/2024 6:37 PM [facility] eGFR >90 >=90 mL/min/1.7 3 m2 09/12/2024 6:37 PM [facility] Blood BLOOD SPECIMEN / Unknown 09/12/2024 6:36 PM UNHAIRING INSPECTOR 09/12/2024 6:37 PM UNHAIRING INSPECTOR Nacho Clay DO LAB - POINT OF CARE ORDERABLES [address] [address], [place] [phone] * INR WHOLE BLOOD - POINT OF CARE (IP) STROKE (09/12/2024 6:33 PM UNHAIRING INSPECTOR) INR 0.9 0.9 - 1.2 09/12/2024 6:36 PM [facility] Device [id number] 09/12/2024 6:36 PM [facility] Product Analyst ID [id number] 09/12/2024 6:36 PM [facility] Blood BLOOD SPECIMEN / Unknown 09/12/2024 6:33 PM UNHAIRING INSPECTOR 09/12/2024 6:36 PM UNHAIRING INSPECTOR Nacho Clay DO LAB - POINT OF CARE ORDERABLES [facility] [address] [place], [place] [phone], [facility] [phone] * CT BRAIN - Stroke (09/12/2024 6:28 PM UNHAIRING INSPECTOR) Anatomical Region Laterality Modality Head Computed Tomogra phy 09/12/2024 6:30 PM UNHAIRING INSPECTOR Impressions 09/12/2024 6:50 PM UNHAIRING INSPECTOR IMPRESSION: 1.No acute intracranial hemorrhage. 2.Please note [...] 09/12/2024 6:50 PM Narrative 09/12/2024 6:50 PM UNHAIRING INSPECTOR PROCEDURE: CT BRAIN STROKE, DATE/TIME OF EXAM: 09/12/2024 6:29 PM, LOCATION [facility] INDICATION: Code Stroke EXAMINATION: Computed tomography (CT) [...] DATE/TIME OF EXAM: 09/12/2024 6:29 PM, LOCATION [facility] INDICATION: Code Stroke EXAMINATION: Computed tomography (CT) [...] Nacho Clay DO CT ORDERABLES Care Teams Web Mobile Designer Relationship Specialty Start Date End Date Brianne Ko APRN-BARRERA [address] [phone] PCP - General Nurse Practitioner Family 09/12/24
--- OUTSIDE RECORDS SUMMARY | 2024-11-26 12:19 | XMS_ITS ---
Author Organization [facility] Address [address] [place] [address] Care Team Providers Care Axle Polisher Name Role Phone Kevin Colon Unavailable [phone] Encounters Encounter Location Date Provider Diagnosis [facility] [place] [facility] [address] [place] [address] 11/12/2024 Kevin Colon PLAN OF TREATMENT No Information Progress Notes * Rustam BOXeDOB:1940 ([age] yo F)Acc No.[id number]:11/12/2024 Patient: Wendy BOX Provider: MD SCOT, Stephanie.Lenny.C.P, F.A.S.N. :1940 Age:84 Y Sex:Female Date:11/12/2024 Address:[address] [place], [place] [id number] Subjective: * Chief Complaints: Objective: Assessment: Plan: * Billing Information: * Visit Code: * Procedure Codes: * Sign off status: Pending * Provider: MD SCOT, Stephanie.Lenny.C.P, F.A.S.N. Date: 11/12/2024
--- OUTSIDE RECORDS SUMMARY | 2024-11-26 12:19 | XMS_ITS ---
Author Organization [facility] Address [address] [place] [address] Care Team Providers Care Pad Extractor Tender Name Role Phone Kevin Colon Unavailable [phone] Encounters Encounter Location Date Provider Diagnosis [facility] [address] [facility] [address] [place] [address] 10/01/2024 Kevin Colon PLAN OF TREATMENT No Information Progress Notes * Rustam BOXEsmeOB:1940 ([age] yo F)Acc No.[id number]:10/01/2024 Progress Notes Patient: Wendy BOX Provider: MD SCOT, Stephanie.Lenny.C.P, F.A.S.N. :1940 Age:83 Y Sex:Female Date:10/01/2024 Address:[address] [place], [place] [id number] Subjective: * Chief Complaints: * * Medical History: Objective: Assessment: Plan: * Treatment: * Billing Information: * Visit Code: * Procedure Codes: * Sign off status: Pending * Provider: MD SCOT, F.Lenny.C.P, F.A.S.N. Date: 10/01/2024
--- OUTSIDE RECORDS SUMMARY | 2024-11-26 12:19 | XMS_ITS | CONTINUITY OF CARE DOCUMENT ---
Author Name jennifer rodriguez Address Unknown Organization [facility] Address [address] [place] [address] Phone [phone] Care Team Providers Care Retail Advisor Name Role Phone Freddy Moran MD Unavailable [phone] ROBER LUX Unavailable [phone] PRATIMA ORDOÑEZ MD Unavailable PROBLEMS Condition Status Date Provider Notes Shortness of breath active Freddy Moran MD Edema active Freddy Moran MD Pulmonary embolism - 2010 active Davey Hinton Atrial fibrillation active Davey Rojas rg Hypothyroidism active Davey Hinton Hypertension active Davey Hinton Venous insufficiency active Davey Modi erg PVD - mild by duplex 02/2020 active [place] Preop cardiovasc. examination active Jodie Meraz Cellulitis active Freddy Moran MD ENCOUNTERS Date Type Provider Location Encounter Diag nosis - In-person encounter Office Visit Freddy Moran MD [facility] Cellulitis - In-person encounter Office Visit Freddy Moran MD [facility] - In-person encounter Office Visit Freddy Moran MD [facility] - In-person encounter Office Visit Freddy Moran MD [facility] - In-person encounter Office Visit Thierry Niño MD [facility] - In-person encounter Office Visit Freddy Moran MD [facility] Preop cardiovasc. examination - In-person encounter Office Visit Freddy Moran MD [facility] - In-person encounter Office Visit Freddy Moran MD [facility] Venous insufficiencyPVD - mild by duplex 02/2020 VITAL SIGNS Date Observation Value Provider Body Mass Index (Ratio) 37.88 kg/m2 Barron Nelson blood pressure, diastolic 97 mm[Hg] Leora robles Diop blood pressure, systolic 184 mm[Hg] [facility], [facility]ximetry 97 % [facility] pulse rate 81 /min [facility] respiratory rate E&M 12 /min [facility] weight E&M 194 [lb_av] [facility] height E&M 60 [in_i] [facility] blood pressure, cuff size regular Leora robles Diop Body Mass Index (Ratio) 37.88 kg/m2 Faith Fuller blood pressure, diastolic 87 mm[Hg] Leora rosie Barrientos blood pressure, systolic 160 mm[Hg] Ivana Barrientos pulse rate 77 /min Joy Barrientos oxygen saturation, oximetry 95 % Joy Barrientos blood pressure, cuff size large Leora rosie Barrientos weight E&M 194 [lb_av] Joymusa Barrientos height E&M 60 [in_i] Joy Barrientos Body Mass Index (Ratio) 37.88 kg/m2 Faith Fuller blood pressure, diastolic 79 mm[Hg] Bia nkLogic blood pressure, systolic 147 mm[Hg] Deanna kLogquynh blood pressure, cuff size regular Ja rret blood pressure, diastolic 79 mm[Hg] Ja rret blood pressure, systolic 147 mm[Hg] Ciaran ret pulse rate 75 /min Britton y oxygen saturation, oximetry 96 % Britton respiratory rate E&M 16 /min Britton weight E&M 194 [lb_av] Britton y height E&M 60 [in_i] Britton y Body Mass Index (Ratio) 37.30 kg/m2 Nathaniel Cortes blood pressure, cuff size large Ke rri Grrogenenfelder blood pressure, diastolic 90 mm[Hg] Ke rri Gruenenfelder blood pressure, systolic 174 mm[Hg] Skip Lentz oxygen saturation, oximetry 96 % Rebecca Lentz respiratory rate E&M 16 /min Rebecca langford pulse rate 82 /min Rebecca Serna er weight E&M 191 [lb_av] Rebecca Serna lder height E&M 60 [in_i] Rebecca Serna lder blood pressure, cuff size regular Us shari Niño MD blood pressure, diastolic 70 mm[Hg] Us shari Niño MD blood pressure, systolic 130 mm[Hg] Gavin Niño MD pulse rate 80 /min Thierry Niño MD blood pressure, cuff size regular Erin Griffin height E&M 60 [in_i] Marytracifermín Ann son blood pressure, diastolic 70 mm[Hg] Bia woodsLogquynh blood pressure, systolic 126 mm[Hg] Deanna kLogic blood pressure, cuff size large Ke rri Joseuenenfelder blood pressure, diastolic 70 mm[Hg] Ke rri Gruenenfelder blood pressure, systolic 126 mm[Hg] Skip ri Marlonelder oxygen saturation, oximetry 97 % Rebecca Marlonelder respiratory rate E&M 16 /min Rebecca G ruenenfelder pulse rate 69 /min Rebecca Masone lder height E&M 60 [in_i] Rebecca Masone lder Body Mass Index (Ratio) 33.78 kg/m2 Yao Ferraroberg blood pressure, diastolic 70 mm[Hg] Cy david Gupta blood pressure, systolic 161 mm[Hg] Christa daniel Gupta blood pressure, cuff size regular Cy david Gupta weight E&M 173 [lb_av] Jacqueline York l pulse rate 72 /min Jacqueline York l respiratory rate E&M 16 /min Jacqueline Gupta oxygen saturation, oximetry 97 % Jacqueline Gupta height E&M 60 [in_i] Jacqueline Duranbel l Body Mass Index (Ratio) 34.17 kg/m2 Yao pereyraer Jamaal height E&M 60 [in_i] Davey Ferrarob erg weight E&M 175 [lb_av] Daevy Republicb erg ALLERGIES No Known Drug Allergies RESULTS Date Observation Value Provider Reference Range Interpretation Location pro brain natriuretic peptide 343 pg/mL [facility] 0-738 calcium, serum 9.5 mg/dL [facility] 8.7-10.3 carbon dioxide, venous blood 27 mmol/L [facility] 20-29 chloride, serum 104 mmol/L [facility] 96-106 potassium, serum 4.1 mmol/L [facility] 3.5-5.2 sodium, serum 146 mmol/L [facility]144 High urea nitrogen/creatinine ratio, serum 31 [facility] 12[facility]28 High eGFR if 93 mL/min/{1 .73_m2} [facility] >59 eGFR if not 81 mL/min/{1 .73_m2} [facility] >59 creatinine, serum 0.71 mg/dL [facility] 0.57-1.00 urea nitrogen, blood 22 mg/dL [facility] 8-27 blood glucose, random 175 mg/dL [facility] 65-99 High troponin I 0.332 ng/mL [facility] troponin I 0.360 ng/mL [facility] thyroid stimulating hormone, serum <0.015 [facility] thyroxine, serum, free 3.23 ng/dL [facility] LDL cholesterol, serum 66 mg/dL [facility] platelet count 202 10*3/uL [facility] red blood cell distribution width 13.2 % [facility] mean corpuscular hemoglobin concentration, RBC 31.6 g/dL [facility] mean corpuscular hemoglobin, RBC 29.2 pg [facility] mean corpuscular volume, RBC 92.6 fL [facility] hematocrit, blood 32.3 % [facility] hemoglobin, blood 10.2 g/dL [facility] erythrocyte (RBC) count 3.49 10*6/mm3 [facility] leukocyte count, blood 6.4 10*3/mm3 [facility] platelet count 202 10*3/mm3 [facility] carbon dioxide, venous blood 26 mmol/L [facility] protein, total, serum 6.9 g/dL [facility] albumin, serum 3.9 g/dL [facility] bilirubin, serum, total 0.70 mg/dL [facility] alkaline phosphatase, serum 114 1/L [facility] alanine aminotransferase (SGPT), serum 12 1/L [facility] aspartate aminotransferase (SGOT), serum 20 1/L [facility] D-dimer quantitative mcg/mL 1.85 ug/mL [facility] B-type natriuretic peptide 182 pg/mL [facility] blood glucose, random 166 mg/dL [facility] creatinine, serum 0.91 mg/dL [facility] urea nitrogen, blood 27 mg/dL [facility] carbon dioxide, venous blood 23 mmol/L [facility] chloride, serum 103 mmol/L [facility] potassium, serum 3.6 mmol/L [facility] sodium, serum 138 mmol/L [facility] magnesium, serum 1.8 mg/dL [facility] calcium, serum 9.2 mg/dL [facility] blood glucose, random 123 mg/dL [facility] creatinine, serum 0.74 mg/dL [facility] urea nitrogen, blood 22 mg/dL [facility] carbon dioxide, serum, total 26 mmol/L [facility] chloride, serum 105 mmol/L [facility] potassium, serum 3.6 mmol/L [facility] sodium, serum 139 mmol/L [facility] HISTORY OF MEDICATION USE Medication Status Instructions Dates Provider Indications Com ments losartan 25 mg tablet active Freddy Moran MD rosuvastatin 40 mg tablet active Take 1 tablet by mouth every evening Rebecca Lentz Xarelto 20 mg tablet active TAKE 1 TABLET BY MOUTH ONCE DAILY AT NIGHT Margarita Trevino levothyroxine 150 mcg tablet active Christi FLORES rosuvastatin 40 mg tablet completed - Rebecca Lentz lisinopril-hydroc hlorothiazide 20-25 mg tablet completed Take 1 tablet by mouth once a day due for follow up - Rebeccanam Lentz Xarelto 20 mg tablet completed Take 1 tablet by mouth every night - Margarita Trevino Xarelto 20 mg tablet completed TAKE 1 TABLET BY MOUTH ONCE DAILY AT NIGHT - Rebecca Lentz Euthyrox 100 mcg tablet [facility] ergocalciferol (vitamin D2) 1,250 mcg (50,000 unit) capsule active Rebecca Lentz Toprol XL 25 mg tablet extended release 24 hr completed tablet by mouth once a day - [facility] levothyroxine 150 mcg tablet completed 1 tablet by mouth once a day - Rebecca Lentz lisinopril-hydroc hlorothiazide 20-25 mg tablet completed 1 tablet by mouth once a day - Rebecca Lentz LISINOPRIL-HYDROC HLOROTHIAZIDE 20-25 MG ORAL TABLET completed One tablet daily - Davey Hinton Xarelto 20 mg tablet completed 1 tablet by mouth every night - Tom Villalta simvastatin 20 mg tablet completed 1 tablet by mouth once a day - [facility] LEVOTHYROXINE SODIUM 150 MCG ORAL TABLET completed [...] [place] SOCIAL HISTORY Date Observation Value Provider number of grandchildren Freddy Mart as Omar personal history of marijuana use no Freddy Moran MD drug use no Freddy Moran MD alcohol use, average drinks per day social Freddy Moran MD alcohol use yes Freddy Moran MD smoking status Never smoker Freddy Merino personal history of marijuana use no Freddy Moran MD drug use no Freddy Moran MD alcohol use, average drinks per day social Freddy Moran MD alcohol use yes Freddy Moran MD smoking status Never smoker Freddy Merino personal history of marijuana use no Christi [facility]ig[facility] drug use no Christi Ventimig elicia [facility] alcohol use, average drinks per day social Christi Ventimiglia [facility] alcohol use yes Christi Ventimig elicia [facility] smoking status Never smoker Christi Ventim iglia [facility] social history E&M S moking History: Peterson craven has never smoked. Nathaniel Kolb social history reviewed E&M revi ewed - no changes required Nathaniel Kolb smoking status Never smoker Rebecca ya smoking status Never smoker Thierry Niño [...] Moran MD smoking status Never smoker Rebecca ya social history E&M Smoking Histo ry: P merissa has never smoked. Davey Hinton social history reviewed E&M revi ewed - no changes required Davey Hinton smoking status Never smoker Jacqueline Santiago andrew smoking status never smoker Davey Beatty erg INSURANCE PROVIDERS Payer name Policy type / Coverage type [employer] red green party ID [employer] PPO HMO [id number] ADVANCE DIRECTIVES Name Date DISCUSSED - NO DECISION MADE TREATMENT PLAN Date Name Performer [id number],S, Nathaniel Doreneeder [id number],S, Nathaniel Doreneeder [id number],S,S he does have significant venous reflux in bilateral SFA from duplex in 2019 Nathaniel samiaeder [id number],C, N o SOB Nathaniel samiajuancho [id number],C, she has LE edema but no redness. She does have significant venous reflux in bilateral SFA from duplex in 2019. I advised her to wear compression socks and elevate her legs. I discussed possible Venaseal in the future. Nathaniel Kolb [id number],S, H er updated medication list for this problem includes: Toprol Xl 25 Mg Tablet Extended Release 24 Hr (Metoprolol succinate) ..... Tablet by mouth once a day Thierry Niño MD [id number],SThierry MD [id number],S, S he appears to be feeling better hard to tell if she has venous insuffiency or HFpEF. Thierry Niño MD [id number],S, B P today: 130/70 P rior BP: 126/70 (05/09/2021) Labs Reviewed: C reat: 0.71 (02/18/2020) L DL: 66 (01/12/2020) Her updated medication list for this problem includes: Lisinopril-hydrochlorothiazide 20-25 Mg Tablet (Lisinopril-hydrochlorothiazide) ..... 1 tablet by mouth once a day Toprol Xl 25 Mg Tablet Extended Release 24 Hr (Metoprolol succinate) ..... Tablet by mouth once a day Thierry Niño MD [id number],C,. 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 She is allowed to hold the Xarelto per the surgeon's instructions. H er updated medication list for this problem includes: Lisinopril-hydrochlorothiazide 20-25 Mg Tablet (Lisinopril-hydrochlorothiazide) ..... 1 tablet by mouth once a day Toprol Xl 25 Mg Tablet Extended Release 24 Hr (Metoprolol succinate) ..... Tablet by mouth once a day Lyudmila Meraz [id number],C, H er updated medication list for this problem includes: Toprol Xl 25 Mg Tablet Extended Release 24 Hr (Metoprolol succinate) ..... Tablet by mouth once a day Lyudmila Meraz [id number],C, H er updated medication list for this problem includes: Euthyrox 100 Mcg Tablet (Levothyroxine) Lyudmila Meraz [id number],C, P rior BP: 126/70 (05/09/2021) Labs Reviewed: C reat: 0.71 (02/18/2020) L DL: 66 (01/12/2020) Her updated medication list for this problem includes: Lisinopril-hydrochlorothiazide 20-25 Mg Tablet (Lisinopril-hydrochlorothiazide) ..... 1 tablet by mouth once a day Toprol Xl 25 Mg Tablet Extended Release 24 Hr (Metoprolol succinate) ..... Tablet by mouth once a day Lyudmila Meraz [id number],C,O gus doing well. Denies chest pain or SOB. Continues on current medications. 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 She is allowed to hold the Xarelto per the surgeon's instructions. Lyudmila Meraz [id number],B,No SOB Freddy Moran MD [id number],B, B P today: 126/70 P rior BP: 161/70 (04/19/2020) Labs Reviewed: C reat: 0.71 (02/18/2020) L DL: 66 (01/12/2020) Her updated medication list for this problem includes: Lisinopril-hydrochlorothiazide 20-25 Mg Tablet (Lisinopril-hydrochlorothiazide) ..... 1 tablet by mouth once a day Toprol Xl 25 Mg Tablet Extended Release 24 Hr (Metoprolol succinate) ..... Tablet by mouth once a day Freddy Moran MD [id number],S,S he still does not want intervention for her veins Freddy Moran MD [id number],S,I n NSR today. Her updated medication list for this problem includes: Toprol Xl 25 Mg Tablet Extended Release 24 Hr (Metoprolol succinate) ..... Tablet by mouth once a day Freddy Moran MD Cardiology:on long t erm AC with lizbeth Nelson Cardiology: H er updated medication list for this problem includes: Losartan 25 Mg Tablet (Losartan) BP today: 184/97 P rior BP: 160/87 (12/31/2023) Labs Reviewed: C reat: 0.71 (02/18/2020) L DL: 66 (01/12/2020) Giancarlo Nelson Cardiology:chronic f or her s ocks w ound care Giancarlo Nelson Cardiology Giancarlo Nelson Cardiology:see wound care r epeat venous study to r.o dvt Giancarlo Nelson Cardiology: H er updated medication list for [...] includes: Levothyroxine 150 Mcg Tablet (Levothyroxine) Christi Pagan [facility] Cardiology:noted on last venous doppler w ill repeat venous doppler as continued LE edema e ncouraged compression Christichante Pagan [facility] Cardiology:BP 147/79 continue presesnt medication regimen c [...] a day due for follow up Christi Pagan [facility] Cardiology:last repo rt in 2009 r azul on xarelto will hold d/t hematuria m ay need prophylatic dosing Christi Pagan [facility] Cardiology:in NSR to day a ppears to have been NSR on last EKG as well w ill update tele to look at afib burden as holding xarelto d/t hematuria The following medications were removed from the medication list: Toprol Xl 25 Mg Tablet Extended Release 24 Hr (Metoprolol succinate) ..... Tablet by mouth once a day Christi Ocampozeeshan [facility] Cardiology Nathaniel Doreneeder Cardiology Nathaniel di Cardiology:She does have significant venous reflux in bilateral SFA [facility]: she has LE edema but no [...] MD Cardiology:. 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 She is allowed to hold the Xarelto per the surgeon's instructions. H er updated medication list for this problem includes: Lisinopril-hydrochlorothiazide 20-25 Mg Tablet (Lisinopril-hydrochlorothiazide) ..... 1 tablet by mouth once a day Toprol Xl 25 Mg Tablet Extended Release 24 Hr (Metoprolol succinate) ..... Tablet by mouth once a day Lyudmila Kt Cardiology: H er updated medication list for [...] current medications. 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 [...] once a day Freddy Moran MD Cardiology hospital follow up:Her updated medication list for this problem includes: Levothyroxine Sodium 150 Mcg Oral Tablet (Levothyroxine sodium) ..... One tablet daily [facility] follow up:BP today: 161/70 Her updated medication list for this problem includes: Lisinopril-hydrochlorothiazide 20-25 Mg Oral Tablet (Lisinopril-hydrochlorothiazide) ..... One tablet daily [facility] follow up:JOHAN's showed mild disease. [facility] follow up:Venous duplex showed venous insufficiency, but she is not interested in intervention at this time. [facility] follow up:Venous duplex showed venous insufficiency, but she is not interested in intervention at this time. [facility] follow up:ProBNP was 343. COVID-19 antibodies were nagtive. Echo showed normal EF and LAE. Pt had an episode of AFib treated at [facility] in [place] and says she had a stress test there. [facility] follow up:Pt had an episode of AFib treated at [facility] in [place] and says she had a stress test there. She's in sinus bradycardia today. Will obtain her records. Recommending a home sleep study. [facility] Telehealth:Her updat ed medication list for this problem includes: Lisinopril-hydrochlorothiazide 20-25 Mg Oral Tablet (Lisinopril-hydrochlorothiazide) ..... One tablet daily [facility] Telehealth:Her updat ed medication list for this problem includes: Levothyroxine Sodium 150 Mcg Oral Tablet (Levothyroxine sodium) ..... One tablet daily [facility] Telehealth:Orders: V enous Doppler Bilateral LE - Reflux (CPT-56683) A rterial Duplex Bi-Lower EX (CPT-20695) [facility] Telehealth:Orders: C omplete Echo (CPT-01522) B ASIC METABOLIC PANEL W/EGFR (61308) P ROBNP, N TERMINAL ([id number]) [facility] Telehealth:Pt had a recent admission to [facility]. She presented with chest pain, SOB and palpitations and was found to be in AFib with RVR. She was treated with IV Cardizem and converted to NSR. Also started on Xarelto. Over all feeling well but did have an episode of palpitations at home. Orders: M obile Cardiac Tele (CPT-32424) C omplete Echo (CPT-75060) S leep Study Home (CPT-72379) [facility] Date Name Venous Doppler Bilat eral LE - Reflux Microalb/Creatinine Urine, Random PROBNP, N TERMINAL Holter [...] Procedure Name Provider Procedure Notes S tatus Complex e/m visit add on Freddy Moran MD completed EKG Freddy Moran MD completed MARY JO Moran MD completed MARY JO Moran MD completed Event Monitor Chase Chen [facility]
--- OUTSIDE RECORDS SUMMARY | 2024-11-26 12:19 | XMS_ITS | Encounter Summary ---
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
--- OUTSIDE RECORDS SUMMARY | 2024-11-26 12:19 | XMS_ITS ---
Author Organization [facility] Address [address] [place] [address] Care Team Providers Care Adult Care Manager Name Role Phone Kevin Colon Unavailable [phone] Encounters Encounter Location Date Provider Diagnosis [facility] [address] [facility] [address] [place] [address] 2024 Kevin Colon PLAN OF TREATMENT No Information Progress Notes * Rustam BOXEsmeOB:1940 ([age] yo F)Acc No.[id number] Progress Notes Patient: Wendy BOX Provider: MD SCOT, Stephanie.Lenny.C.P, F.A.S.N. :1940 Age:84 Y Sex:Female Date:2024 Address:[address] [place], [place] [id number] Subjective: * Chief Complaints: * * Medical History: Objective: Assessment: Plan: * Treatment: * Billing Information: * Visit Code: * Procedure Codes: * Sign off status: Pending * Provider: MD SCOT, F.A.C.P, F.A.S.N. Date: 2024
[2024-11-26 16:47] VITALS: BP 192/95; PULSE 91; RESP 20; O2SAT 98
[2024-11-26 17:02] VITALS: BP 178/87; PULSE 87; RESP 21; O2SAT 97
[2024-11-26 17:17] VITALS: BP 169/93; PULSE 92; RESP 22; O2SAT 96
[2024-11-26 17:41] LABS: Basophils Percent Auto 0.3 % (0.2-1.2); Eosinophils Absolute Auto 0.1 K/mm3 (0-0.3); Eosinophils Percent Auto 0.9 % (0-4.4); Hematocrit 35.7 % (37.0-47.0); Hemoglobin 11.3 g/dL (12.0-15.0); Immature Granulocyte Absolute 0.02 K/mm3 (0.00-0.031); Immature Granulocyte Percent A 0.2 % (0-0.5); Lymphocytes Absolute Auto 1.01 K/mm3 (0.9-3.2); Lymphocytes Percent Auto 11.2 % (18.3-44.2); Mean Corpuscular HGB Conc 31.7 g/dl (32-36); Mean Corpuscular Hemoglobin 29.6 pg (26-34); Mean Corpuscular Volume 93.5 fl (80-100); Monocytes Absolute Auto 0.7 K/mm3 (0.1-0.6); Monocytes Percent Auto 7.4 % (2.6-8.5); Neutrophils Absolute Auto 7.2 K/mm3 (1.3-6.7); Platelet Count Result 171 k/mm3 (150-375); Red Blood Count 3.82 M/mm3 (4.2-5.4); Red Cell Distribution Width 13.8 % (11.5-14.5); White Blood Count 9.1 K/mm3 (4.5-10.0)
[2024-11-26 17:54] LABS: Alanine Aminotransferase 18 U/L (6-35); Albumin Level 3.9 g/dL (3.5-5.1); Alkaline Phosphatase 77 U/L (38-126); Anion Gap 6 mmol/L (4-12); Aspartate Amino Transferase 18 U/L (14-36); Blood Urea Nitrogen 19 mg/dL (7-17); Calcium 8.8 mg/dL (8.4-10.2); Carbon Dioxide 32 mmol/L (22-30); Chloride 103 mmol/L (98-107); Estimated Glomerular Filt Rate 60; Glucose 167 mg/dL (65-110); Potassium 3.1 mmol/L (3.4-5.0); Sodium 141 mmol/L (137-145)
[2024-11-26 17:58] LABS: INR 1.5; Prothrombin Time 18.4 Seconds (11.1-14.7)
[2024-11-26 17:59] LABS: Partial Thromboplastin Time 37.6 Seconds (22.3-36.8)
[2024-11-26 18:00] LABS: NT Pro B Type Natriuretic Pept 958 pg/mL (19.9-100)
--- NOTE | 2024-11-26 18:03 | ED.LOWEXIN ---
HPI - Extremity Injury (Lower) General Chief Complaint: Extremity Injury, Lower <Dimple Giles PA-C - Last Filed: 11/27/24 14:17> Stated Complaint: R leg cellulitis <Dimple Giles PA-C - Last Filed: 11/27/24 14:17> Time Seen by Provider: 11/26/24 16:30 <Dimple Giles PA-C - Last Filed: 11/27/24 14:17> Source: patient <DUNCAN Machado Last Filed: 11/27/24 14:17> Mode of arrival: ambulatory <Dimple Giles PA-C - Last Filed: 11/27/24 14:17> Limitations: no limitations <Dimple Giles PA-C - Last Filed: 11/27/24 14:17> History of Present Illness HPI Narrative: This is a 84 year old female that presents to the ER for right lower extremity cellulitis. She is on Cephalexin currently without relief. Sent to the ER by her PCP for further management. <Dimple Giles PA-C - Last Filed: 11/27/24 14:17> Related Data Home Medications: Home Medications ?Medication ?Instructions ?Recorded ?Confirmed ?Last Taken ?Type levothyroxine 100 mcg tablet 100 mcg PO QAM 01/02/22 11/27/24 11/26/24 History (Euthyrox) metoprolol tartrate 25 mg tablet 25 mg PO DAILY 01/02/22 11/27/24 11/26/24 History rivaroxaban 20 mg tablet (Xarelto) 20 mg PO DAILY 01/02/22 11/27/24 11/26/24 History lisinopril 20 1 tablet PO QAM 02/08/22 11/27/24 11/26/24 History mg-hydrochlorothiazide 25 mg tablet losartan 25 mg tablet 25 mg PO DAILY 11/14/24 11/27/24 11/26/24 History rosuvastatin 40 mg tablet 40 mg PO DAILY 11/14/24 11/27/24 11/26/24 History <DUNCAN Machado Last Filed: 11/27/24 14:17> Allergies/Adverse Reactions: Allergies Allergy/AdvReac Type Severity Reaction Status Date / Time codeine AdvReac Intermediate NAUSEA Verified 11/26/24 11:52 <Dimple Giles PA-C - Last Filed: 11/27/24 14:17> Review of Systems Review of Systems: CONSTITUTIONAL: Denies fever SKIN: Reports redness and swelling <DUNCAN Machado Last Filed: 11/27/24 14:17> All systems reviewed & are unremarkable except as noted in HPI and below <Dimple Giles PA-C - Last Filed: 11/27/24 14:17> FORMERLY [facility], 1928–[facility] Past Medical History Medical History: Medical History History of cellulitis w/o MRSA History of pulmonary embolism A-fib Diabetes type 2, controlled High blood pressure High cholesterol <DUNCAN Machado Last Filed: 11/27/24 14:17> Surgical History Surgical History: Surgical History History of left heart catheterization <Dimple iGles PA-C - Last Filed: 11/27/24 14:17> Family History Family History: Family History Other Acute myocardial infarction Acute rheumatic arthritis Cancer Depression Hypertension <DUNCAN Machado Last Filed: 11/27/24 14:17> Social History Social History: Social History Social History: Daughter Kathy Smoking status: Never smoker Alcohol intake: never Substance use: never Substance use type: does not use Do You Feel Safe in your Home?: Yes Lack of Transportation: No Lack of Food: Never True Current Housing: I Have Housing Concerned About Future Housing: No Difficulty Paying Gas/Electric Bills: No Difficulty Paying for Meds: No Currently Unemployed: No Education: Grade School Difficulty w/ Childcare or Family Care: No Living arrangements: with family Additional living arrangements comments: DAUGHTER Occupation/Education: retired Gender identity (if verbalized by the patient): Female Spiritual care concerns: No <Dimple Giles PA-C - Last Filed: 11/27/24 14:17> Exam Narrative: GENERAL: Elderly, well-nourished, and in no acute distress. HEAD: Normocephalic, atraumatic. EYES: EOMI. CHEST: Clear to auscultation. No respiratory distress. No wheezes rales or rhonchi HEART: Regular rate and rhythm. No murmur heard. Normal peripheral pulses. EXTREMITIES: Normal range of motion. Edema and erythema to the right lower leg with a small blister to the right medial ankle. Normal DP pulse. Normal sensation SKIN: Warm, dry, no rash. NEURO: No focal deficits. Alert and oriented x3. PSYCH: Normal mood and affect <DUNCAN Machado Last Filed: 11/27/24 14:17> Course Vital Signs Vital signs: Vital Signs Temperature 98.4 F 11/26/24 11:58 Pulse Rate 70 11/26/24 11:58 Respiratory Rate 16 11/26/24 11:58 Blood Pressure 176/93 H 11/26/24 11:58 Pulse Oximetry 95 11/26/24 11:58 Oxygen Delivery Room Air 11/26/24 11:58 Temperature 97.8 F 11/27/24 03:29 Pulse Rate 88 11/27/24 03:29 Respiratory Rate 20 11/27/24 03:29 Blood Pressure 150/74 H 11/27/24 03:29 Pulse Oximetry 95 11/27/24 03:29 Oxygen Delivery Room Air 11/26/24 11:58 <DUNCAN Machado Last Filed: 11/27/24 14:17> Vital Signs Temperature 98.4 F 11/26/24 11:58 Pulse Rate 70 11/26/24 11:58 Respiratory Rate 16 11/26/24 11:58 Blood Pressure 176/93 H 11/26/24 11:58 Pulse Oximetry 95 11/26/24 11:58 Oxygen Delivery Room Air 11/26/24 11:58 Temperature 97.8 F 11/27/24 03:29 Pulse Rate 88 11/27/24 03:29 Respiratory Rate 20 11/27/24 03:29 Blood Pressure 150/74 H 11/27/24 03:29 Pulse Oximetry 95 11/27/24 03:29 Oxygen Delivery Room Air 11/26/24 11:58 <DUNCAN Dean Last Filed: 11/26/24 22:27> MDM - Extremity Injury (Lower) MDM Narrative Medical decision making narrative: Care signed of myself at shift change pending CT imaging of leg. CT RLE: Edema in the subcutaneous tissues with 2 collections seen above the antecubital anterolaterally. Further evaluation and Follow-up advised. On exam, patient does have a small serous filled blister. There is no skin necrosis. I do not appreciate anything that looks like a focal abscess that would require drainage. Patient to be admitted for continued IV antibiotics for severe cellulitis. She was started on vancomycin in the ED. Discussed case with Dr. Serra, hospitalist, accepted patient for admission. Recommended ekg to r/o changes r/t hypokalemia, otherwise can go to medical floor. Patient in agreement with plan. <Karly Mak PA-C - Last Filed: 11/26/24 22:27> Medical Records Attestation: I reviewed the patient's medical records. <Karly Mak PA-C - Last Filed: 11/26/24 22:27> Lab Data Attestation: I reviewed the patient's lab results. <DUNCAN Dean Last Filed: 11/26/24 22:27> Result diagrams: 11/27/24 05:43 11/27/24 05:43 <Dimple Giles PA-C - Last Filed: 11/27/24 14:17> Labs: Lab Results 11/26/24 11/26/24 11/26/24 Range/Units 17:33 17:33 17:33 WBC 9.1 (4.5-10.0) K/mm3 RBC 3.82 L (4.2-5.4) M/mm3 Hgb 11.3 L (12.0-15.0) g/dL Hct 35.7 L (37.0-47.0) % MCV 93.5 (80-100) fl MCH 29.6 (26-34) pg MCHC 31.7 L (32-36) g/dl RDW 13.8 (11.5-14.5) % Plt Count 171 (150-375) k/mm3 MPV 10.0 (7.4-10.4) fl Immature Gran % (Auto) 0.2 (0-0.5) % Neut % (Auto) 80.0 H (45.5-73.1) % Lymph % (Auto) 11.2 L (18.3-44.2) % [place] % (Auto) 7.4 (2.6-8.5) % Eos % (Auto) 0.9 (0-4.4) % Baso % (Auto) 0.3 (0.2-1.2) % Lymph # (Auto) 1.01 (0.9-3.2) K/mm3 [place] # (Auto) 0.7 H (0.1-0.6) K/mm3 Eos # (Auto) 0.1 (0-0.3) K/mm3 Baso # (Auto) 0.0 (0.0-0.1) K/mm3 Abs Immat Gran (auto) 0.02 (0.00-0.031) K/mm3 Absolute Neuts (auto) 7.2 H (1.3-6.7) K/mm3 Absolute Nucleated RBC 0.000 (0.0-0.012) K/mm3 Nucleated RBC % 0.0 (0.0-0.2) % ESR 65 H (0-20) mm/hr PT 18.4 H (11.1-14.7) Seconds INR 1.5 APTT 37.6 H (22.3-36.8) Seconds Sodium 141 (137-145) mmol/L Potassium 3.1 L (3.4-5.0) mmol/L Chloride 103 (98-107) mmol/L Carbon Dioxide 32 H (22-30) mmol/L Anion Gap 6 (4-12) mmol/L BUN 19 H (7-17) mg/dL Creatinine 0.90 (0.7-1.0) mg/dL Estim Creat Clear Calc Not Reportable Estimated GFR 60 (59 - ) Glucose 167 H (65-110) mg/dL Hemoglobin A1c 7.2 H (<5.7) % Calcium 8.8 (8.4-10.2) mg/dL Magnesium 1.8 (1.6-2.3) mg/dL Total Bilirubin 1.0 (0.2-1.3) mg/dL AST 18 (14-36) U/L ALT 18 (6-35) U/L Alkaline Phosphatase 77 (38-126) U/L C-Reactive Protein Cancelled 13.8 H NT-Pro-B Natriuret Pep 958 H Cancelled (19.9-100) pg/mL Total Protein 7.0 (6.3-8.2) g/dL Albumin 3.9 (3.5-5.1) g/dL Nasal MRSA (PCR) (NOT DETECTE) 11/26/24 Range/Units 21:51 WBC (4.5-10.0) K/mm3 RBC (4.2-5.4) M/mm3 Hgb (12.0-15.0) g/dL Hct (37.0-47.0) % MCV (80-100) fl MCH (26-34) pg MCHC (32-36) g/dl RDW (11.5-14.5) % Plt Count (150-375) k/mm3 MPV (7.4-10.4) fl Immature Gran % (Auto) (0-0.5) % Neut % (Auto) (45.5-73.1) % Lymph % (Auto) (18.3-44.2) % [place] % (Auto) (2.6-8.5) % Eos % (Auto) (0-4.4) % Baso % (Auto) (0.2-1.2) % Lymph # (Auto) (0.9-3.2) K/mm3 [place] # (Auto) (0.1-0.6) K/mm3 Eos # (Auto) (0-0.3) K/mm3 Baso # (Auto) (0.0-0.1) K/mm3 Abs Immat Gran (auto) (0.00-0.031) K/mm3 Absolute Neuts (auto) (1.3-6.7) K/mm3 Absolute Nucleated RBC (0.0-0.012) K/mm3 Nucleated RBC % (0.0-0.2) % ESR (0-20) mm/hr PT (11.1-14.7) Seconds INR APTT (22.3-36.8) Seconds Sodium (137-145) mmol/L Potassium (3.4-5.0) mmol/L Chloride (98-107) mmol/L Carbon Dioxide (22-30) mmol/L Anion Gap (4-12) mmol/L BUN (7-17) mg/dL Creatinine (0.7-1.0) mg/dL Estim Creat Clear Calc Estimated GFR (59 - ) Glucose (65-110) mg/dL Hemoglobin A1c (<5.7) % Calcium (8.4-10.2) mg/dL Magnesium (1.6-2.3) mg/dL Total Bilirubin (0.2-1.3) mg/dL AST (14-36) U/L ALT (6-35) U/L Alkaline Phosphatase (38-126) U/L C-Reactive Protein NT-Pro-B Natriuret Pep (19.9-100) pg/mL Total Protein (6.3-8.2) g/dL Albumin (3.5-5.1) g/dL Nasal MRSA (PCR) Not detected (NOT DETECTE) <Dimple Giles PA-C - Last Filed: 11/27/24 14:17> Lab Results 11/26/24 11/26/24 11/26/24 Range/Units 17:33 17:33 17:33 WBC 9.1 (4.5-10.0) K/mm3 RBC 3.82 L (4.2-5.4) M/mm3 Hgb 11.3 L (12.0-15.0) g/dL Hct 35.7 L (37.0-47.0) % MCV 93.5 (80-100) fl MCH 29.6 (26-34) pg MCHC 31.7 L (32-36) g/dl RDW 13.8 (11.5-14.5) % Plt Count 171 (150-375) k/mm3 MPV 10.0 (7.4-10.4) fl Immature Gran % (Auto) 0.2 (0-0.5) % Neut % (Auto) 80.0 H (45.5-73.1) % Lymph % (Auto) 11.2 L (18.3-44.2) % [place] % (Auto) 7.4 (2.6-8.5) % Eos % (Auto) 0.9 (0-4.4) % Baso % (Auto) 0.3 (0.2-1.2) % Lymph # (Auto) 1.01 (0.9-3.2) K/mm3 [place] # (Auto) 0.7 H (0.1-0.6) K/mm3 Eos # (Auto) 0.1 (0-0.3) K/mm3 Baso # (Auto) 0.0 (0.0-0.1) K/mm3 Abs Immat Gran (auto) 0.02 (0.00-0.031) K/mm3 Absolute Neuts (auto) 7.2 H (1.3-6.7) K/mm3 Absolute Nucleated RBC 0.000 (0.0-0.012) K/mm3 Nucleated RBC % 0.0 (0.0-0.2) % ESR 65 H (0-20) mm/hr PT 18.4 H (11.1-14.7) Seconds INR 1.5 APTT 37.6 H (22.3-36.8) Seconds Sodium 141 (137-145) mmol/L Potassium 3.1 L (3.4-5.0) mmol/L Chloride 103 (98-107) mmol/L Carbon Dioxide 32 H (22-30) mmol/L Anion Gap 6 (4-12) mmol/L BUN 19 H (7-17) mg/dL Creatinine 0.90 (0.7-1.0) mg/dL Estim Creat Clear Calc Not Reportable Estimated GFR 60 (59 - ) Glucose 167 H (65-110) mg/dL Hemoglobin A1c 7.2 H (<5.7) % Calcium 8.8 (8.4-10.2) mg/dL Magnesium 1.8 (1.6-2.3) mg/dL Total Bilirubin 1.0 (0.2-1.3) mg/dL AST 18 (14-36) U/L ALT 18 (6-35) U/L Alkaline Phosphatase 77 (38-126) U/L C-Reactive Protein Cancelled 13.8 H NT-Pro-B Natriuret Pep 958 H Cancelled (19.9-100) pg/mL Total Protein 7.0 (6.3-8.2) g/dL Albumin 3.9 (3.5-5.1) g/dL Nasal MRSA (PCR) (NOT DETECTE) 11/26/24 Range/Units 21:51 WBC (4.5-10.0) K/mm3 RBC (4.2-5.4) M/mm3 Hgb (12.0-15.0) g/dL Hct (37.0-47.0) % MCV (80-100) fl MCH (26-34) pg MCHC (32-36) g/dl RDW (11.5-14.5) % Plt Count (150-375) k/mm3 MPV (7.4-10.4) fl Immature Gran % (Auto) (0-0.5) % Neut % (Auto) (45.5-73.1) % Lymph % (Auto) (18.3-44.2) % [place] % (Auto) (2.6-8.5) % Eos % (Auto) (0-4.4) % Baso % (Auto) (0.2-1.2) % Lymph # (Auto) (0.9-3.2) K/mm3 [place] # (Auto) (0.1-0.6) K/mm3 Eos # (Auto) (0-0.3) K/mm3 Baso # (Auto) (0.0-0.1) K/mm3 Abs Immat Gran (auto) (0.00-0.031) K/mm3 Absolute Neuts (auto) (1.3-6.7) K/mm3 Absolute Nucleated RBC (0.0-0.012) K/mm3 Nucleated RBC % (0.0-0.2) % ESR (0-20) mm/hr PT (11.1-14.7) Seconds INR APTT (22.3-36.8) Seconds Sodium (137-145) mmol/L Potassium (3.4-5.0) mmol/L Chloride (98-107) mmol/L Carbon Dioxide (22-30) mmol/L Anion Gap (4-12) mmol/L BUN (7-17) mg/dL Creatinine (0.7-1.0) mg/dL Estim Creat Clear Calc Estimated GFR (59 - ) Glucose (65-110) mg/dL Hemoglobin A1c (<5.7) % Calcium (8.4-10.2) mg/dL Magnesium (1.6-2.3) mg/dL Total Bilirubin (0.2-1.3) mg/dL AST (14-36) U/L ALT (6-35) U/L Alkaline Phosphatase (38-126) U/L C-Reactive Protein NT-Pro-B Natriuret Pep (19.9-100) pg/mL Total Protein (6.3-8.2) g/dL Albumin (3.5-5.1) g/dL Nasal MRSA (PCR) Not detected (NOT DETECTE) <Karly Mak PA-C - Last Filed: 11/26/24 22:27> Imaging Data Attestation: I personally reviewed and interpreted this imaging study as follows: <Karly Mak PA-C - Last Filed: 11/26/24 22:27> Radiologist's impression: ITS Impressions Venous Doppler Study 11/26/24 17:34 IMPRESSION: Negative right lower extremity venous US. No deep vein thrombosis. Lower Extremity CT 11/26/24 19:59 IMPRESSION: Edema in the subcutaneous tissues with 2 collections seen above the antecubital anterolaterally. Further evaluation and Follow-up advised. <Karly Mak PA-C - Last Filed: 11/26/24 22:27> Critical Care Time Critical Care Time Critical Care Time: No <Dimple Giles PA-C - Last Filed: 11/27/24 14:17> Discharge Plan Discharge Clinical Impression: Cellulitis of right lower extremity, Elevated hemoglobin A1c, Blister <DUNCAN Machado Last Filed: 11/27/24 14:17> Patient Disposition: Still a Patient <DUNCAN Machado Last Filed: 11/27/24 14:17> Condition: Stable <DUNCAN Machado Last Filed: 11/27/24 14:17>
[2024-11-26 18:06] LABS: CRP 13.8 mg/dL (<1.0)
--- OUTSIDE RECORDS SUMMARY | 2024-11-26 18:12 | XMS_ITS | Clinical Summary ---
Author Organization [facility] Address [address] [place] [address] Care Team Providers Care [place] Supervisor Name Role Phone Brianne Ko SANTOSH-BARRERA Primary Care Provider [phone] Source Comments [employer] [facility],non-owned Affiliates and Associated Physician Practices is amultiple site organization consisting of ambulatory clinics and hospital sitesin [place], [place], [place] and [place]. This disclosure is being madepursuant to the Care Everywhere program and may not contain all information available regarding this patient. 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 supervisor 09/13/2024 Travel 09/12/2024 6:24 PM PHYSICIAN PRACTICE COORDINATOR - 09/14/2024 12:47 PM PHYSICIAN PRACTICE COORDINATOR Hospital Encounter [facility] EMERGENCY DEPARTMENT [address] [place] [address] Nacho Clay, Lauri Pino MD Aphasia (Primary [...] Comments Blood Pressure 172/72 09/14/2024 11:16 AM PHYSICIAN PRACTICE COORDINATOR Pulse 88 09/14/2024 11:17 AM PHYSICIAN PRACTICE COORDINATOR Temperature 36.7 C (98 F) 09/13/2024 10:47 PM PHYSICIAN PRACTICE COORDINATOR Respiratory Rate 18 09/14/2024 11:17 AM PHYSICIAN PRACTICE COORDINATOR Oxygen Saturation 95% 09/14/2024 11:17 AM PHYSICIAN PRACTICE COORDINATOR Inhaled Oxygen Concentration - - Weight 88.9 kg (196 lb) 09/13/2024 9:36 AM PHYSICIAN PRACTICE COORDINATOR Height 162.6 cm (5' 4 ) 09/13/2024 8:32 PM PHYSICIAN PRACTICE COORDINATOR Body Mass Index 37.03 09/13/2024 9:36 AM PHYSICIAN PRACTICE COORDINATOR Plan of Treatment Health Maintenance Due Date [...] CARDIAC EKG ORDER 09/14/2024 1:2 9 [address] PHYSICIAN PRACTICE COORDINATOR CT HEAD WO CONTRAST Routine 09/14/2024 6 :00 AM PHYSICIAN PRACTICE COORDINATOR Transient alteration of awareness Facial droop CBC W/O DIFFERENTIAL STAT 09/14/2024 2:15 AM PHYSICIAN PRACTICE COORDINATOR BASIC METABOLIC PANEL (CALCIUM TOTAL) STAT 09/14/2024 2:15 AM PHYSICIAN PRACTICE COORDINATOR GLUCOSE - POINT OF CARE Routine 09/13/2024 10:46 PM PHYSICIAN PRACTICE COORDINATOR GLUCOSE - POINT OF CARE Routine 09/13/2024 5:46 PM PHYSICIAN PRACTICE COORDINATOR TROPONIN-I HIGH SENSITIVE STAT 09/13/2024 1:22 PM PHYSICIAN PRACTICE COORDINATOR Aphasia GLUCOSE - POINT OF CARE Routine 09/13/2024 12:19 PM PHYSICIAN PRACTICE COORDINATOR BLOOD TYPE VERIFICATION STAT 09/13/2024 8:49 AM PHYSICIAN PRACTICE COORDINATOR TROPONIN-I HIGH SENSITIVE REFLEX 1HOUR Timed 09/13/2024 8:49 AM PHYSICIAN PRACTICE COORDINATOR URINALYSIS W/MICROSCOPIC NO CULTURE STAT 09/13/2024 8:45 AM PHYSICIAN PRACTICE COORDINATOR HEMOGLOBIN A1C Add on 09/13/2024 6:00 AM PHYSICIAN PRACTICE COORDINATOR LIPID PROFILE STAT 09/13/2024 6:00 AM PHYSICIAN PRACTICE COORDINATOR CBC W/O DIFFERENTIAL STAT 09/13/2024 6:00 AM PHYSICIAN PRACTICE COORDINATOR BASIC METABOLIC PANEL (CALCIUM TOTAL) STAT 09/13/2024 6:00 AM PHYSICIAN PRACTICE COORDINATOR T4 FREE Routine 09/12/2024 7:10 PM PHYSICIAN PRACTICE COORDINATOR Aphasia Transient alteration of awareness Facial droop Hypothyroidism, unspecified type TSH REFLEX FREE T4 Routine 09/12/2024 7: 10 PM PHYSICIAN PRACTICE COORDINATOR Aphasia Transient alteration of awareness Facial droop Hypothyroidism, unspecified type PHOSPHORUS BLOOD Routine 09/12/2024 7:10 PM PHYSICIAN PRACTICE COORDINATOR Aphasia Transient alteration of awareness MAGNESIUM BLOOD Routine 09/12/2024 7:10 PM PHYSICIAN PRACTICE COORDINATOR Aphasia Transient alteration of awareness TROPONIN-I HIGH SENSITIVE BASELINE + 1HR STAT 09/12/2024 7:10 PM PHYSICIAN PRACTICE COORDINATOR EKG 12-LEAD STAT 09/12/2024 7:04 PM PHYSICIAN PRACTICE COORDINATOR Aphasia Transient alteration of awareness XR CHEST 1VW PORTABLE STAT 09/12/2024 6:54 PM PHYSICIAN PRACTICE COORDINATOR Aphasia Transient alteration of awareness CT ANGIO BRAIN NECK STROKE STAT 09/12/2024 6:42 PM PHYSICIAN PRACTICE COORDINATOR Aphasia Transient alteration of awareness TYPE + SCREEN PANEL STAT 09/12/2024 6 :39 PM PHYSICIAN PRACTICE COORDINATOR PT-INR [facility] STAT 09/12/2024 6:39 PM PHYSICIAN PRACTICE COORDINATOR COMPREHENSIVE METABOLIC PANEL STAT 09/12/2024 6:39 PM PHYSICIAN PRACTICE COORDINATOR CBC W AUTO DIFFERENTIAL STAT 09/12/2024 6:39 PM PHYSICIAN PRACTICE COORDINATOR CREATININE - POCT INTERFACED Routine 09/12/2024 6:36 PM PHYSICIAN PRACTICE COORDINATOR INR WHOLE BLOOD - POINT OF CARE (IP) STROKE Routine 09/12/2024 6:33 PM PHYSICIAN PRACTICE COORDINATOR CT BRAIN STROKE STAT 09/12/2024 6:28 PM PHYSICIAN PRACTICE COORDINATOR Aphasia Transient alteration of awareness from Last 3 Months Results * CARDIAC EKG ORDER (09/14/2024 1:29 PM PHYSICIAN PRACTICE COORDINATOR) Narrative 09/14/2024 1:29 PM PHYSICIAN PRACTICE COORDINATOR Ordered by an unspecified provider. Scanned Document CARDIAC SERVICES ORD ERABLES * CT Head Wo Contrast (09/14/2024 6:00 AM PHYSICIAN PRACTICE COORDINATOR) Anatomical Region Laterality Modality Head Computed Tomogra phy 09/14/2024 6:00 AM PHYSICIAN PRACTICE COORDINATOR Impressions 09/14/2024 10:22 AM PHYSICIAN PRACTICE COORDINATOR IMPRESSION: 1.No acute intracranial hemorrhage, midline shift, or significant mass effect. > Dictated by Jaswant Anaya MD (Aerodynamicist) I, Luan Rouse MD have personally reviewed and interpreted this examination/study. > Interpreting Provider: Luan Rouse MD on 09/14/2024 10:22 AM Narrative 09/14/2024 10:22 AM PHYSICIAN PRACTICE COORDINATOR PROCEDURE: CT HEAD WO CONTRAST, DATE/TIME OF EXAM: 09/14/2024 6:00 AM, LOCATION [facility] INDICATION: R40.4: Transient alteration of awareness [...] DATE/TIME OF EXAM: 09/14/2024 6:00 AM, LOCATION [facility] INDICATION: R40.4: Transient alteration of awareness [...] effect. > Dictated by Jaswant Anaya MD (Aerodynamicist) I, Luan Rouse MD have personally reviewed and interpreted this examination/study. > Interpreting Provider: Luan Rouse MD on 09/14/2024 10:22 AM Lauri Girard MD CT ORDERABLES * (ABNORMAL) CBC W/O DIFFERENTIAL (09/14/2024 2:15 AM PHYSICIAN PRACTICE COORDINATOR) Only the most recent of2 resultswithin the time period is included. WBC 11.4(H) 4.0 - 10.7 x10E9/L 09/14/2024 3:14 AM [facility] RBC Count 4.80 3.90 - 5.20 x10E12/L 09/14/2024 3:14 AM [facility] Hemoglobin 14.4 11.9 - 15.8 g/dL 09/14/2024 3:14 AM [facility] Hematocrit 43.4 34.8 - 46.1 % 09/14/2024 3:14 AM [facility] MCV 90.4 80.0 - 98.0 fL 09/14/2024 3:14 AM [facility] MCH 30.0 26.7 - 33.6 pg 09/14/2024 3:14 AM [facility] MCHC 33.2 31.7 - 36.3 g/dL 09/14/2024 3:14 AM [facility] RDW-CV 13.9 11.3 - 14.8 % 09/14/2024 3:14 AM [facility] Platelet Count 09/14/2024 3:14 AM [facility] Comment:Platelets clumped on slide but appears decreased. Recommend repeat with a sodium citrate blue top tube. MPV 09/14/2024 3:14 AM [facility] Comment:Unable to report Blood BLOOD SPECIMEN / Unknown Venipuncture / Unknown 09/14/2024 2:15 AM PHYSICIAN PRACTICE COORDINATOR 09/14/2024 2:40 AM [facility] Nacho Clay DO LAB - HEMATOLOGY ORD ERABLES [facility] [address] [place] [address], [facility] [phone] * (ABNORMAL) BASIC METABOLIC PANEL (CALCIUM TOTAL) (09/14/2024 2:15 AM PHYSICIAN PRACTICE COORDINATOR) Only the most recent of2 resultswithin the time period is included. Pathologist [facility] [place] BUN 17 7 - 26 mg/dL 09/14/2024 3:07 AM [facility] Creatinine 0.90 0.56 - 0.96 mg/dL 09/14/2024 3:07 AM [facility] Sodium 142 136 - 145 mmol/L 09/14/2024 3:07 AM [facility] Potassium 3.4(L) 3.5 - 4.5 mmol/L 09/14/2024 3:07 AM [facility] Chloride 104 98 - 107 mmol/L 09/14/2024 3:07 AM [facility] CO2 23 22 - 29 mmol/L 09/14/2024 3:07 AM [facility] Glucose 205(H) 70 - 99 mg/dL 09/14/2024 3:07 AM [facility] Calcium 9.7 8.4 - 10.2 mg/dL 09/14/2024 3:07 AM [facility] Anion Gap 15 6 - 16 09/14/2024 3:07 AM [facility] BUN/Creatinine Ratio 19 7 - 23 09/14/2024 3:07 AM [facility] Osmolality Calculated 301(H) 275 - 295 mOsm/kg 09/14/2024 3:07 AM [facility] eGFR by CKD-EPI 63(L) >=90 mL/min/1.7 3 m2 09/14/2024 3:07 AM [facility] Blood BLOOD SPECIMEN / Unknown Venipuncture / Unknown 09/14/2024 2:15 AM PHYSICIAN PRACTICE COORDINATOR 09/14/2024 2:40 AM [facility] Nacho Clay DO LAB - CHEMISTRY KAITLYNN SWARTZ Performing Organization Address City/State/[facility] Co de Phone Number [facility] [address] [place] [address], [facility] [phone] * (ABNORMAL) GLUCOSE - POINT OF CARE (09/13/2024 10:46 PM PHYSICIAN PRACTICE COORDINATOR) Only the most recent of3 resultswithin the time period is included. Glucose WB/POC 133(H) 70 - 99 mg/dL 09/13/2024 10:47 PM [facility] Specimen Type Cap Fingerstick 2023 10:47 PM [facility] Blood BLOOD SPECIMEN / Unknown 09/13/2024 10:46 PM PHYSICIAN PRACTICE COORDINATOR 09/13/2024 10:47 PM PHYSICIAN PRACTICE COORDINATOR Lauri Girard MD LAB - POINT OF CARE ORDERABLES Performing Organization Address City/[facility]/ZIP Co de Phone Number [address] [address], [place] [phone] * (ABNORMAL) TROPONIN-I HIGH SENSITIVE (09/13/2024 1:22 PM PHYSICIAN PRACTICE COORDINATOR) Pathologist [facility] [place] Troponin I High Sensitive 18(H) <=14 ng/L 09/13/2024 2:08 PM PHYSICIAN PRACTICE COORDINATOR [facility] Blood BLOOD SPECIMEN / Unknown Venipuncture / Unknown 09/13/2024 1:22 PM PHYSICIAN PRACTICE COORDINATOR 09/13/2024 1:33 PM PHYSICIAN PRACTICE COORDINATOR Lauri Girard MD LAB - CHEMISTRY ORDAshly SWARTZ Performing Organization Address [facility] Co de Phone Number [address] [address], [place] [phone] * (ABNORMAL) TROPONIN-I HIGH SENSITIVE REFLEX 1HOUR (09/13/2024 8:49 AM PHYSICIAN PRACTICE COORDINATOR) [facility] Troponin I High Sensitive 20(H) <=14 ng/L 09/13/2024 9:34 AM PHYSICIAN PRACTICE COORDINATOR [facility] Delta Troponin I HS 09/13/2024 9:34 AM PHYSICIAN PRACTICE COORDINATOR [facility] Comment:Delta value intentio turner not calculated. Baseline to 1 hour specimen collection interval exceeded. Blood BLOOD SPECIMEN / Unknown Venipuncture / Unknown 09/13/2024 8:49 AM PHYSICIAN PRACTICE COORDINATOR 09/13/2024 8:55 AM PHYSICIAN PRACTICE COORDINATOR Nacho Clay DO LAB - CHEMISTRY KAITLYNN SWARTZ Performing Organization Address [facility]/ZIP Co de Phone Number [address] [address], [place] [phone] * BLOOD TYPE VERIFICATION (09/13/2024 8:49 AM PHYSICIAN PRACTICE COORDINATOR) Pathologist [facility] [place] ABO Rh A POS 09/13/2024 9:4 9 AM [facility] Blood Bank BLOOD SPECIMEN / Unknown Venipuncture / Unknown 09/13/2024 8:49 AM PHYSICIAN PRACTICE COORDINATOR 09/13/2024 9:05 AM PHYSICIAN PRACTICE COORDINATOR Nacho Clay DO LAB - BLOOD BANK ORD ERABLES Performing Organization Address [facility]/ZIP Co de Phone Number [facility]OD [facility] LAB [address] [place] [address], [facility] [phone] * (ABNORMAL) URINALYSIS W/MICROSCOPIC NO CULTURE (09/13/2024 8:45 AM PHYSICIAN PRACTICE COORDINATOR) Color UA Rowena(A) Straw, Yellow 09/13/2024 9:13 AM [facility] Clarity UA Cloudy(A) Clear 09/13/2024 9:13 AM [facility] Specific [place] UA 1.034(H) 1.005 - 1.030 09/13/2024 9:13 AM [facility] pH UA 7.0 5.0 - 8.0 pH 09/13/2024 9:13 AM [facility] Protein UA 2+(A) Negative 09/13/2024 9:13 AM [facility] Glucose UA Negative Negative 09/13/2024 9:13 AM [facility] Ketone UA Negative Negative 09/13/2024 9:13 AM [facility] Bilirubin UA Negative Negative 09/13/2024 9:13 AM [facility] Blood UA 1+(A) Negative 09/13/2024 9:13 AM [facility] Nitrite UA Negative Negative 09/13/2024 9:13 AM [facility] Leukocyte Esterase Trace(A) Negative 09/13/2024 9:13 AM [facility] Urobilinogen UA 2.0(A) Negative mg/dL 09/13/2024 9:13 AM [facility] RBC UA 21-50(A) None Seen, 0-2, 3-5 /HPF 09/13/2024 9:13 AM [facility] WBC UA 6-10(A) None Seen, 0-5 /HPF 09/13/2024 9:13 AM [facility] Bacteria UA 3+(A) None /HPF 09/13/2024 9:13 AM [facility] Squamous Epithelial Cells UA 3-5 None Seen, 0-2, 3-5 /HPF 09/13/2024 9:13 AM [facility] Mucus UA 1+ /LPF 09/13/2024 9:13 AM [facility] Amorphous Crystals Few(A) None /HPF 09/13/2024 9:13 AM [facility] Urine URINE SPECIMEN OBTAINED BY CLEAN CATCH PROCEDURE / Unknown Collection / Unknown 09/13/2024 8:45 AM PHYSICIAN PRACTICE COORDINATOR 09/13/2024 8:55 AM PHYSICIAN PRACTICE COORDINATOR Narrative [facility] - 09/13/2024 9:13 AM PHYSICIAN PRACTICE COORDINATOR Nacho Clay DO LAB - URINALYSIS ORD ERABLES [facility] [address] [place] [address], [facility] [phone] * (ABNORMAL) HEMOGLOBIN A1C (09/13/2024 6:00 AM [facility]) Hemoglobin A1c 6.8(H) <=5.6 % 09/14/2024 9:53 AM [facility] Estimated Average Glucose 148 mg/dL 09/14/2024 9:53 AM [facility] Comment: HbA1c Interpretation: Normal : < 5.7% Pre-diabetes: 5.7-6.4% Diabetes: Equal to or greater than 6.5% Test results diagnostic of diabetes should be repeated for confirmation. Treatment target values recommended by ADA and other clinical organizations should be used to evaluate metabolic control in patients. Reference: [place] [employer], Standards of Care in Diabetes -2020 In patients 70 years and older consider HbA1c target range of 7.0-7.5% (Reference: Neel Galvez et al. JAMDA. 2012) The Sebia assay for the measurement of HbA1c is a National Glycohemoglobin Standardization Program (NGSP) certified method. Blood BLOOD SPECIMEN / Unknown Venipuncture / Unknown 09/13/2024 6:00 AM PHYSICIAN PRACTICE COORDINATOR 09/13/2024 8:53 PM PHYSICIAN PRACTICE COORDINATOR Kareem Bagley MD LAB - CHEMISTRY KAITLYNN SWARTZ [facility] [address] [place] [address], [place] [phone] * (ABNORMAL) LIPID PROFILE (09/13/2024 6:00 AM PHYSICIAN PRACTICE COORDINATOR) Cholesterol Total 170 <200 mg/dL 09/13/2024 6:49 AM [facility] HDL 55 >40 mg/dL 09/13/2024 6:49 AM [facility] Comment: ATP III Classification of HDL Cholesterol: <40 mg/dL: Considered a major risk factor. >60 mg/dL: Considered a negative risk factor. LDL Calculated 82 <100 mg/dL 09/13/2024 6:49 AM [facility] Comment: ATP III Classification of LDL Cholesterol: <100 mg/dL: Optimal 100 - 129 mg/dL: Near Optimal/Above Optimal 130 - 159 mg/dL: Borderline High 160 - 189 mg/dL: High >190 mg/dL: Very High Triglycerides 163(H) <150 mg/dL 09/13/2024 6:49 AM [facility] Comment: ATP III Classification of Triglycerides: <150 mg/dL: Normal 150 - 199 mg/dL: Borderline High 200 - 400 mg/dL: High >500 mg/dL: Very High Blood BLOOD SPECIMEN / Unknown Venipuncture / Unknown 09/13/2024 6:00 AM PHYSICIAN PRACTICE COORDINATOR 09/13/2024 6:27 AM PHYSICIAN PRACTICE COORDINATOR Nacho Clay DO LAB - CHEMISTRY KAITLYNN SWARTZ [facility] [address] [place] [address], [place] [phone] * TROPONIN-I HIGH SENSITIVE BASELINE + 1HR (09/12/2024 7:10 PM PHYSICIAN PRACTICE COORDINATOR) Troponin I High Sensitive 12 <=14 ng/L 09/12/2024 7:49 PM [facility] Blood BLOOD SPECIMEN / Unknown Venipuncture / Unknown 09/12/2024 7:10 PM PHYSICIAN PRACTICE COORDINATOR 09/12/2024 7:30 PM PHYSICIAN PRACTICE COORDINATOR Nacho Clay DO LAB - CHEMISTRY ORDAshly SWARTZ [address] [address], [facility] [phone] * (ABNORMAL) TSH REFLEX FREE T4 (09/12/2024 7:10 PM PHYSICIAN PRACTICE COORDINATOR) TSH 24.558(H) 0.350 - 4.940 uIU/mL 09/12/2024 9:14 PM PHYSICIAN PRACTICE COORDINATOR [facility] Blood BLOOD SPECIMEN / Unknown Venipuncture / Unknown 09/12/2024 7:10 PM PHYSICIAN PRACTICE COORDINATOR 09/12/2024 7:30 PM PHYSICIAN PRACTICE COORDINATOR Lauri Girard MD LAB - CHEMISTRY KAITLYNN SWARTZ Performing Organization Address City/[facility]/ZIP Co de Phone Number [address] [address], [facility] [phone] * PHOSPHORUS BLOOD (09/12/2024 7:10 PM PHYSICIAN PRACTICE COORDINATOR) Phosphorus 3.2 2.9 - 5.1 mg/dL 09/12/2024 7:50 PM PHYSICIAN PRACTICE COORDINATOR [facility] Blood BLOOD SPECIMEN / Unknown Venipuncture / Unknown 09/12/2024 7:10 PM PHYSICIAN PRACTICE COORDINATOR 09/12/2024 7:30 PM PHYSICIAN PRACTICE COORDINATOR Lauri Girard MD LAB - CHEMISTRY ORDAshly SWARTZ [address] [address], [facility] [phone] * MAGNESIUM BLOOD (09/12/2024 7:10 PM PHYSICIAN PRACTICE COORDINATOR) Magnesium 1.8 1.6 - 2.6 mg/dL 09/12/2024 7:50 PM PHYSICIAN PRACTICE COORDINATOR [facility] Blood BLOOD SPECIMEN / Unknown Venipuncture / Unknown 09/12/2024 7:10 PM PHYSICIAN PRACTICE COORDINATOR 09/12/2024 7:30 PM PHYSICIAN PRACTICE COORDINATOR Lauri Girard MD LAB - CHEMISTRY KAITLYNN CHILANGOTAMIE Performing Organization Address City/[facility]/ZIP Co de Phone Number [address] [address], [place] [phone] * T4 FREE (09/12/2024 7:10 PM PHYSICIAN PRACTICE COORDINATOR) T4 Free 0.7 0.7 - 1.5 ng/dL 09/12/2024 9:47 PM PHYSICIAN PRACTICE COORDINATOR [facility] Blood BLOOD SPECIMEN / Unknown Venipuncture / Unknown 09/12/2024 7:10 PM PHYSICIAN PRACTICE COORDINATOR 09/12/2024 7:30 PM PHYSICIAN PRACTICE COORDINATOR Lauri Girard MD LAB - CHEMISTRY KAITLYNN SWARTZ Performing Organization Address [facility] Co de Phone Number [address] [address], [place] [phone] * EKG 12-LEAD (09/12/2024 7:04 PM PHYSICIAN PRACTICE COORDINATOR) Ventricular Rate 97 BPM [facility] MUSE Atrial Rate 97 BPM [facility] MUSE P-R Interval 186 ms [facility] MUSE QRS Duration ms 106 ms H MUSE Q-T Interval ms 388 ms [facility] MUSE QTC Calculation (Bezet) 492 ms [facility] MUSE Calculated P Beauty 60 degrees SL MUSE Calculated R Beauty -29 degrees H MUSE Calculated T Beauty 94 degrees SL MUSE Interpretation EKG NORMAL SINUS RHYTHM MINIMAL VOLTAGE CRITERIA FOR LVH, MAY BE NORMAL VARIANT ( Baldemar product ) ANTEROSEPTAL INFARCT , AGE UNDETERMINED ABNORMAL ECG NO PREVIOUS ECGS AVAILABLE Confirmed by DAVIS RIDER, JEREMIAH ([id number]) on 09/15/2024 2:33:28 PM [facility] MUSE 09/12/2024 7:04 PM PHYSICIAN PRACTICE COORDINATOR 09/15/2024 2:33 PM PHYSICIAN PRACTICE COORDINATOR Nacho Clay DO ECG ORDERABLES Performing Organization Address [facility]/ZIP Co de Phone Number [facility] MUSE * XR Chest 1Vw Portable (09/12/2024 6:54 PM PHYSICIAN PRACTICE COORDINATOR) Anatomical Region Laterality Modality Chest Digital Radiogra phy 09/12/2024 7:53 PM PHYSICIAN PRACTICE COORDINATOR Narrative 09/12/2024 8:45 PM PHYSICIAN PRACTICE COORDINATOR PROCEDURE: XR CHEST 1VW PORTABLE, DATE/TIME OF EXAM: 09/12/2024 7:05 PM, LOCATION [facility] INDICATION: R47.01: Aphasia R40.4: Transient alteration [...] Report dictated by Maikel Marr MD (residential support worker). Klarissa Verma MD have personally reviewed and interpreted this examination/study. > Interpreting Provider: Klarissa Munoz MD on 09/12/2024 8:45 PM Procedure Note Klarissa Munoz MD - 09/12/2024 PROCEDURE: XR CHEST 1VW PORTABLE, DATE/TIME OF EXAM: 09/12/2024 7:05PM, LOCATION [facility] INDICATION: R47.01: Aphasia R40.4: Transient alteration [...] Report dictated by Maikel Marr MD (residential support worker). Klarissa Verma MD have personally reviewed and interpreted this examination/study. > Interpreting Provider: Klarissa Munoz MD on 09/12/2024 8:45 PM Nacho Clay DO DIAGNOSTIC IMAGING O RDERABLES * CT ANGIO BRAIN NECK STROKE (09/12/2024 6:42 PM PHYSICIAN PRACTICE COORDINATOR) Anatomical Region Laterality Modality Head Computed Tomogra phy 09/12/2024 6:57 PM PHYSICIAN PRACTICE COORDINATOR Impressions 09/12/2024 7:19 PM PHYSICIAN PRACTICE COORDINATOR IMPRESSION: 1. No acute intracranial hemorrhage. 2. No large arterial occlusions or significant stenoses identified in the head or neck. Viz.AI was used for large vessel occlusion detection. > Interpreting Provider: Milagros Flores MD on 09/12/2024 7:19 PM Narrative 09/12/2024 7:19 PM PHYSICIAN PRACTICE COORDINATOR PROCEDURE: CT ANGIO BRAIN NECK STROKE, DATE/TIME OF EXAM: 09/12/2024 6:43 PM, LOCATION [facility] INDICATION: Code Stroke ADDITIONAL CLINICAL INFORMATION: [...] STROKE, DATE/TIME OF EXAM: :43 PM, LOCATION [facility] INDICATION: Code Stroke ADDITIONAL CLINICAL INFORMATION: [...] Nacho Clay DO CT ORDERABLES * PT-INR [facility] (09/12/2024 6:39 PM PHYSICIAN PRACTICE COORDINATOR) PT 12.9 12.1 - 14.8 Seconds 09/12/2024 7:05 PM PHYSICIAN PRACTICE COORDINATOR [facility] INR 1.0 See Comment 09/12/2024 7:05 PM PHYSICIAN PRACTICE COORDINATOR [facility] Comment:The suggested therap eutic range for standard coumadin (warfarin) therapy is an INR of 2.0-3.0. For high-risk patients (Mechanical Mitral Valve Prosthesis, etc.), the suggested prophylactic therapeutic range is an INR of 2.5-3.5. Blood BLOOD SPECIMEN / Unknown Venipuncture / Unknown 09/12/2024 6:39 PM PHYSICIAN PRACTICE COORDINATOR 09/12/2024 6:45 PM PHYSICIAN PRACTICE COORDINATOR Nacho Clay DO LAB - COAGULATION OR DERABLES [facility] [address] [place] [address], [facility] [phone] * TYPE + SCREEN PANEL (09/12/2024 6:39 PM PHYSICIAN PRACTICE COORDINATOR) Antibody Screen NEG 7:42 PM PHYSICIAN PRACTICE COORDINATOR [facility] ABO Rh A POS 09/12/2024 7:42 PM PHYSICIAN PRACTICE COORDINATOR [facility] Blood Bank BLOOD SPECIMEN / Unknown Venipuncture / Unknown 09/12/2024 6:39 PM PHYSICIAN PRACTICE COORDINATOR 09/12/2024 6:50 PM PHYSICIAN PRACTICE COORDINATOR Nacho Clay DO LAB - BLOOD BANK ORD ERABLES [facility] [address] [place] [address], [facility] [phone] * CBC W AUTO DIFFERENTIAL (09/12/2024 6:39 PM PHYSICIAN PRACTICE COORDINATOR) WBC 6.5 4.0 - 10.7 x10E9/L 09/12/2024 7:23 PM [facility] RBC Count 4.29 3.90 - 5.20 x10E12/L 09/12/2024 7:23 PM [facility] Hemoglobin 12.9 11.9 - 15.8 g/dL 09/12/2024 7:23 PM [facility] Hematocrit 38.5 34.8 - 46.1 % 09/12/2024 7:23 PM [facility] MCV 89.7 80.0 - 98.0 fL 09/12/2024 7:23 PM [facility] MCH 30.1 26.7 - 33.6 pg 09/12/2024 7:23 PM [facility] MCHC 33.5 31.7 - 36.3 g/dL 09/12/2024 7:23 PM [facility] RDW-CV 13.8 11.3 - 14.8 % 09/12/2024 7:23 PM [facility] Platelet Count 09/12/2024 7:23 PM [facility] Comment:Platelets clumped on slide but appears adequate. Recommend repeat with a sodium citrate blue top tube. MPV 09/12/2024 7:23 PM [facility] Comment:Unable to report Neutrophil % 68.5 41.0 - 74.0 % 09/12/2024 7:23 PM [facility] Lymphocyte % 21.5 17.0 - 47.0 % 09/12/2024 7:23 PM [facility] Monocyte % 7.3 3.0 - 11.0 % 09/12/2024 7:23 PM [facility] Eosinophil % 2.2 0.0 - 7.0 % 09/12/2024 7:23 PM [facility] Basophil % 0.3 0.0 - 1.6 % 09/12/2024 7:23 PM [facility] Immature Granulocytes % 0.2 0.0 - 1.0 % 09/12/2024 7:23 PM [facility] Neutrophil Absolute 4.45 1.60 - 7.50 x10E9/L 09/12/2024 7:23 PM [facility] Lymphocyte Absolute 1.39 1.00 - 4.40 x10E9/L 09/12/2024 7:23 PM [facility] Monocyte Absolute 0.47 0.15 - 1.00 x10E9/L 09/12/2024 7:23 PM [facility] Eosinophil Absolute 0.14 0.00 - 0.60 x10E9/L 09/12/2024 7:23 PM [facility] Basophil Absolute 0.02 0.00 - 0.13 x10E9/L 09/12/2024 7:23 PM [facility] Blood BLOOD SPECIMEN / Unknown Venipuncture / Unknown 09/12/2024 6:39 PM PHYSICIAN PRACTICE COORDINATOR 09/12/2024 6:45 PM [facility] Nacho Clay DO LAB - HEMATOLOGY ORD ERABLES Performing Organization Address City/[facility] Co de Phone Number [address] [address], [facility] [phone] * (ABNORMAL) COMPREHENSIVE METABOLIC PANEL (09/12/2024 6:39 PM PHYSICIAN PRACTICE COORDINATOR) BUN 20 7 - 26 mg/dL 09/12/2024 7:11 PM [facility] Creatinine 0.85 0.56 - 0.96 mg/dL 09/12/2024 7:11 PM [facility] Sodium 142 136 - 145 mmol/L 09/12/2024 7:11 PM [facility] Potassium 4.3 3.5 - 4.5 mmol/L 09/12/2024 7:11 PM [facility] Chloride 107 98 - 107 mmol/L 09/12/2024 7:11 PM [facility] CO2 26 22 - 29 mmol/L 09/12/2024 7:11 PM [facility] Glucose 152(H) 70 - 99 mg/dL 09/12/2024 7:11 PM [facility] Calcium 9.2 8.4 - 10.2 mg/dL 09/12/2024 7:11 PM [facility] Protein Total 7.2 6.0 - 8.3 g/dL 09/12/2024 7:11 PM [facility] Albumin 4.1 3.4 - 5.0 g/dL 09/12/2024 7:11 PM [facility] Bilirubin Total 0.6 0.2 - 1.2 mg/dL 09/12/2024 7:11 PM [facility] Alkaline Phosphatase 76 40 - 150 U/L 09/12/2024 7:11 PM [facility] ALT 14 5 - 55 U/L 09/12/2024 7:11 PM [facility] AST 18 5 - 34 U/L 09/12/2024 7:11 PM [facility] Anion Gap 9 6 - 16 09/12/2024 7:11 PM [facility] BUN/Creatinine Ratio 24(H) 7 - 23 09/12/2024 7:11 PM [facility] Osmolality Calculated 300(H) 275 - 295 mOsm/kg 09/12/2024 7:11 PM [facility] Albumin/Globulin Ratio 1.3 1.1 - 2.3 09/12/2024 7:11 PM [facility] eGFR by CKD-EPI 68(L) >=90 mL/min/1.7 3 m2 09/12/2024 7:11 PM [facility] Blood BLOOD SPECIMEN / Unknown Venipuncture / Unknown 09/12/2024 6:39 PM PHYSICIAN PRACTICE COORDINATOR 09/12/2024 6:45 PM [facility] Nacho Clay DO LAB - CHEMISTRY KAITLYNN SWARTZ [facility] [address] [place] [address], [facility] [phone] * CREATININE - POCT INTERFACED (09/12/2024 6:36 PM PHYSICIAN PRACTICE COORDINATOR) Creatinine POCT 0.54 0.30 - 1.30 mg/dL 09/12/2024 6:37 PM PHYSICIAN PRACTICE COORDINATOR [facility] eGFR >90 >=90 mL/min/1.7 3 m2 09/12/2024 6:37 PM PHYSICIAN PRACTICE COORDINATOR [facility] Blood BLOOD SPECIMEN / Unknown 09/12/2024 6:36 PM PHYSICIAN PRACTICE COORDINATOR 09/12/2024 6:37 PM PHYSICIAN PRACTICE COORDINATOR Nacho Claudio Samanthazenobia LAB - POINT OF CARE ORDERABLES [facility] [address] [place] [address], [place] [phone] * INR WHOLE BLOOD - POINT OF CARE (IP) STROKE (09/12/2024 6:33 PM PHYSICIAN PRACTICE COORDINATOR) INR 0.9 0.9 - 1.2 09/12/2024 6:36 PM PHYSICIAN PRACTICE COORDINATOR [facility] Device [id number] 09/12/2024 6:36 PM PHYSICIAN PRACTICE COORDINATOR [facility] Animal Services Officer ID [id number] 09/12/2024 6:36 PM PHYSICIAN PRACTICE COORDINATOR [facility] Blood BLOOD SPECIMEN / Unknown 09/12/2024 6:33 PM PHYSICIAN PRACTICE COORDINATOR 09/12/2024 6:36 PM PHYSICIAN PRACTICE COORDINATOR Nacho Claudio Clay LAB - POINT OF CARE ORDERABLES [facility] [address] [place] [address], [place] [phone] * CT BRAIN - Stroke (09/12/2024 6:28 PM PHYSICIAN PRACTICE COORDINATOR) Anatomical Region Laterality Modality Head Computed Tomogra phy 09/12/2024 6:30 PM PHYSICIAN PRACTICE COORDINATOR Impressions 09/12/2024 6:50 PM PHYSICIAN PRACTICE COORDINATOR IMPRESSION: 1.No acute intracranial hemorrhage. 2.Please note [...] 09/12/2024 6:50 PM Narrative 09/12/2024 6:50 PM PHYSICIAN PRACTICE COORDINATOR PROCEDURE: CT BRAIN STROKE, DATE/TIME OF EXAM: 09/12/2024 6:29 PM, LOCATION [facility] INDICATION: Code Stroke EXAMINATION: Computed tomography [...] DATE/TIME OF EXAM: 09/12/2024 6:29 PM, LOCATION [facility] INDICATION: Code Stroke EXAMINATION: Computed tomography [...] 6:45 PM 09/14/2024 1:52 PM Care Teams [place] Supervisor Relationship Specialty Start Date End Date Brianne Ko APRN-BARRERA [address] [place] [address] PCP - General Nurse Practitioner Family 09/12/24
--- OUTSIDE RECORDS SUMMARY | 2024-11-26 18:12 | XMS_ITS | Clinical Summary ---
Author Organization [facility] Address [address] [place] [address] Care Team Providers Care Computer Aide Name Role Phone Sonya Jackson MD Primary [...] Date NSTEMI (non-ST elevation gia cardial infarction) ([facility]) 04/11/2020 NSTEMI (non-ST elevated myoc ardial infarction) ([facility]) 04/10/2020 Encounters Date Type Department Care Team Description 11/08/2024 5:34 PM PNEUMATIC JACKETER - 11/08/2024 7:39 PM PNEUMATIC JACKETER Emergency [facility] [place] [address] Hamilton Neely MD Ankle Swelling Discharge Disposition: [...] Sex Assigned at Female 11/08/2024 4:28 PM PNEUMATIC JACKETER Legal Sex Female 11:07 AM CDT Gender Identity Not on file Sexual Orientation Not on file Last Filed Vital Signs Vital Sign Reading Time Taken Comments Blood Pressure 150/90 11/08/2024 7:23 PM PNEUMATIC JACKETER Pulse 77 11/08/2024 7:23 PM PNEUMATIC JACKETER Temperature 36.6 C (97.8 F) 11/08/2024 3:44 PM PNEUMATIC JACKETER Respiratory Rate 20 11/08/2024 7:23 PM PNEUMATIC JACKETER Oxygen Saturation 98% 11/08/2024 7:23 PM PNEUMATIC JACKETER Inhaled Oxygen Concentration - - Weight 86.2 kg (190 lb) 11/08/2024 3:44 PM PNEUMATIC JACKETER Height 154.9 cm (5' 1 ) 11/08/2024 3:44 PM PNEUMATIC JACKETER Body Mass Index 35.9 11/08/2024 3:44 PM PNEUMATIC JACKETER Plan of Treatment Health Maintenance Due Date [...] ANKLE RT M3V STAT 11/08/2024 5:42 PM PNEUMATIC JACKETER D-DIMER, QUANTITATIVE STAT 11/08/2024 4:22 PM PNEUMATIC JACKETER COMPREHENSIVE METABOLIC PANEL STAT 11/08/2024 4:22 PM PNEUMATIC JACKETER CBC W/DIFF AUTOMATED STAT 11/08/2024 4:22 PM PNEUMATIC JACKETER LIPID PANEL Routine 04/11/2020 1:10 AM CDT from Last 3 Months or Most Recently Relevant to Health Maintenance Results * XR ANKLE RT M3V (11/08/2024 5:42 PM PNEUMATIC JACKETER) Anatomical Region Laterality Modality Ankle Radiographic Iza ging 11/08/2024 5:34 PM PNEUMATIC JACKETER Impressions 11/08/2024 5:42 PM PNEUMATIC JACKETER IMPRESSION:===== 1. No acute osseous finding. 2. Mild arthritic changes and calcaneal spurring. 3. Right ankle greater than greater than distal leg circumferential soft tissue swelling, nonspecific. Referred By: Interpreted By: Minerva Irizarry MD, 11/08/2024 5:34 PM Narrative 11/08/2024 5:42 PM PNEUMATIC JACKETER [address] [address] Examination: Right ankle 3 views Exam date/time: [...] Procedure Note Minerva Irizarry MD - 11/08/[address] [address] Examination: Right ankle 3 views Exam date/time: [...] (ABNORMAL) COMPREHENSIVE METABOLIC PANEL (11/08/2024 4:22 PM [facility]) [facility] GLUCOSE 167(H) 70 - 99 MG/DL 11/08/2024 6:24 PM [facility] BUN 33(H) 7 - 18 MG/DL 11/08/2024 6:24 PM [facility] CREATININE S/P/B 1.21(H) 0.55 - 1.02 MG/DL 11/08/2024 6:24 PM [facility] SODIUM S/P/B 138 136 - 145 MMOL/L 11/08/2024 6:24 PM [facility] POTASSIUM S/P/B 3.5 3.5 - 5.1 MMOL/L 11/08/2024 6:24 PM [facility] CHLORIDE S/P/B 105 97 - 115 MMOL/L 11/08/2024 6:24 PM [facility] CO2 32.3(H) 21 - 32 MMOL/L 11/08/2024 6:24 PM [facility] CALCIUM S/P/B 9.3 8.5 - 10.1 MG/DL 11/08/2024 6:24 PM [facility] BILIRUBIN TOTAL S/P/B 0.5 0.2 - 1.2 MG/DL 11/08/2024 6:24 PM [facility] Comment: THIS ASSAY IS NOT RECOMMENDED FOR PATIENTS UNDERGOING TREATMENT WITH ELTROMBOPAG DUE TO THE POTENTIAL FOR FALSELY ELEVATED RESULTS. TOTAL PROTEIN S/P/B 7.1 6.4 - 8.2 G/DL 11/08/2024 6:24 PM [facility] ALBUMIN S/P/B 3.5 3.4 - 5.0 G/DL 11/08/2024 6:24 PM [facility] AST 19 15 - 37 U/L 11/08/2024 6:24 PM PNEUMATIC JACKETER [facility] ALT 34 14 - 55 U/L 11/08/2024 6:24 PM [facility] ALKALINE PHOSPHATASE S/P/B 81 50 - 136 U/L 11/08/2024 6:24 PM PNEUMATIC JACKETER [facility] ANION GAP 0.7(L) 2 - 10 MMOL/L 11/08/2024 6:24 PM PNEUMATIC JACKETER [facility] BUN CREATININE RATIO 27.3(H) 6 - 26 11/08/2024 6:24 PM [facility] A/G RATIO 1.0 1.0 - 2.0 RATIO 11/08/2024 6:24 PM [facility] GFR ESTIMATE 44(L) >90 ML/MIN/1.7 3 M2 11/08/2024 6:24 PM [facility] Comment: NOTE: eGFR is not calculated for patients <18 years of age or gender unknown. This is an estimated GFR calculation using the new CKD EPI creatinine equation without race and so does not require a correction factor for race. This estimated GFR should not be used for calculating drug doses. 11/08/2024 4:22 PM PNEUMATIC JACKETER [facility] Final Resul t [facility] [address] [place] [address], * (ABNORMAL) D-DIMER, QUANTITATIVE (11/08/2024 4:22 PM PNEUMATIC JACKETER) [facility] D-DIMER 513(HH) 0 - 500 ng{FEU}/mL 11/08/2024 6:20 PM [facility] Comment: D-Dimer values less than or [...] called 11/08/2024 06:21 PM to EMERGENCY ROOM ([id number]/[facility]) by [id number]. Read Back: Yes 11/08/2024 4:22 PM PNEUMATIC JACKETER us [facility] Final Resul t [facility] [address] [place] [address], * (ABNORMAL) CBC W/DIFF AUTOMATED (11/08/2024 4:22 PM PNEUMATIC JACKETER) WBC 9.01 4.5 - 11.0 x10'3/uL 11/08/2024 6:03 PM [facility] RBC 3.98(L) 4.20 - 5.40 x10'6/uL 11/08/2024 6:03 PM [facility] HGB 11.6(L) 12.0 - 16.0 G/DL 11/08/2024 6:03 PM PNEUMATIC JACKETER [facility] HCT 37.4(L) 38.0 - 48.0 % 11/08/2024 6:03 PM [facility] MCV 94.0 81.0 - 99.0 FL 11/08/2024 6:03 PM [facility] MCH 29.1 27.0 - 31.0 PG 11/08/2024 6:03 PM PNEUMATIC JACKETER [facility] MCHC 31.0(L) 32.0 - 36.0 G/DL 11/08/2024 6:03 PM [facility] RDW 13.7 11.5 - 14.5 % 11/08/2024 6:03 PM [facility] PLT 189 130 - 400 x10'3/uL 11/08/2024 6:03 PM [facility] MPV 10.4 9.3 - 12.2 FL 11/08/2024 6:03 PM [facility] DIFFERENTIAL TYPE AUTOMATED DIFFERENTIAL 11/08/2024 6:03 PM [facility] NEUTROPHILS % 75.9 % 11/08/2024 6:03 PM [facility] LYMPHOCYTES % 14.7 % 11/08/2024 6:03 PM [facility] MONOCYTES % 6.3 % 11/08/2024 6:03 PM [facility] EOSINOPHILS 2.2 % 11/08/2024 6:03 PM [facility] BASOPHILS 0.6 % 11/08/2024 6:03 PM [facility] IMMATURE GRANS % 0.3 % 11/08/19 6:03 PM [facility] ABS. NEUTROPHILS 6.84 1.80 - 7.70 x10'3/uL 11/08/2024 6:03 PM [facility] ABS. LYMPHOCYTES 1.32 1.00 - 4.80 x10'3/uL 11/08/2024 6:03 PM [facility] ABS. MONOCYTES 0.57 0.24 - 0.86 x10'3/uL 11/08/2024 6:03 PM [facility] ABS. EOSINOPHILS 0.20 0.04 - 0.36 x10'3/uL 11/08/2024 6:03 PM [facility] ABS. BASOPHILS 0.05 0.01 - 0.08 x10'3/uL 11/08/2024 6:03 PM PNEUMATIC JACKETER [facility] ABS. IMMATURE GRANULOCYTES 0.03 0.00 - 0.49 x10'3/uL 11/08/2024 6:03 PM PNEUMATIC JACKETER [facility] 11/08/2024 4:22 PM PNEUMATIC JACKETER [facility] Final Resul t [facility] [address] [place] [address], [place] [phone] * (ABNORMAL) LIPID PANEL (04/11/2020 1:10 AM CDT) CHOLESTEROL 102 <200 MG/DL 04/11/2020 2:00 AM CDT [facility] TRIGLYCERIDES 182(H) <150 MG/DL 04/11/2020 2:00 AM CDT [facility] HDL 38(L) >40.0 MG/DL 04/11/2020 2:00 AM CDT [facility] LDL (CALCULATED) 28 <100 MG/DL 04/11/2020 2:00 AM CDT [facility] NON HDL CHOLESTEROL 64 <130 MG/DL 04/11/2020 2:00 AM CDT [facility] CHOL/HDL RATIO 2.7 0.0 - 4.5 04/11/2020 2:00 AM CDT [facility] VLDL CALCULATION 36 5 - 55 MG/DL 04/11/2020 2:00 AM CDT [facility] LIPID INTERPRETATION 04/11/2020 2:00 AM T [facility] Comment: [facility] REPORT RECOMMENDATIONS: ADULT CHILD LOW RISK: CHOLESTEROL <200 <170 TRIGLYCERIDE <150 --- HDL >=60 --- LDL <100 <110 BORDERLINE: CHOLESTEROL 200-239 170-199 TRIGLYCERIDE 150-199 --- HDL 40-59 --- LDL 100-159 110-129 HIGH RISK: CHOLESTEROL >=240 >=200 TRIGLYCERIDE >=200 --- HDL <40 --- LDL >=160 >=130 04/11/2020 1:10 AM CDT Alexander Fofana MD LABORATORY Final Result [facility] [address] [place] [address], from Last 3 Months or Most Recently Relevant to Health Maintenance Insurance HUMAN Advance Directives * DNR (Latest Code Status on File) Date Activated Date Inactivated Comments 04/10/2020 11:07 PM 04/12/2020 5:32 PM Care Teams Computer Aide Relationship Specialty Start Date End Date Sonya Jackson MD [address] [facility] [address] [place] [address] PCP - General INTERNAL MEDICINE 11/08/24
--- OUTSIDE RECORDS SUMMARY | 2024-11-26 18:12 | XMS_ITS | Encounter Summary ---
Author Organization [facility] Address [address] [place] [address] Care Team Providers Care Stress Test Technician Name Role Phone Brianne Ko NP Primary Care Provider [phone] Sonya Jackson MD Primary Care Provider Encounter Details Date Type Department Care Team (Late st Contact Info) Description 04/13/2020 Hospital Follow-up Call [facility] Telemetry Unit [address] [facility] [place] [address] Bethany Morocho, RN Social History Tobacco Use [...] Sex Assigned at Female 11/08/2024 4:28 PM CREDIT RATING CHECKER Legal Sex Female 11:07 AM CDT Gender [...] on filedocumented in this encounter Care Teams Stress Test Technician Relationship Specialty Start Date End Date Brianne Ko NP [address] [phone] PCP - General NURSE PRACTITIONER 04/10/20 11/07/24 Sonya Jackson MD [address] [address] PCP - General INTERNAL MEDICINE 11/08/24 documented as of this encounter
--- OUTSIDE RECORDS SUMMARY | 2024-11-26 18:12 | XMS_ITS | Patient Health Summary ---
Author Organization [facility] Address [address] [place] [address] Care Team Providers Care Lens Mold Setter Name Role Phone Brianne Ko SANTOSH-BARRERA Primary Care Provider [phone] Note from [facility],non-owned Affiliates and Associated Physician Practices is amultiple site organization consisting of ambulatory clinics and hospital sitesin [place], [place], [place] and [place]. This disclosure is being madepursuant to the Care Everywhere program and may not contain all information available regarding this patient. Last updated 18.[facility] Allergies No known active allergies Medications * [...] Comments Blood Pressure 172/72 09/14/2024 11:16 AM AGENCY SALES DIRECTOR Pulse 88 09/14/2024 11:17 AM AGENCY SALES DIRECTOR Temperature 36.7 C (98 F) 09/13/2024 10:47 PM AGENCY SALES DIRECTOR Respiratory Rate 18 09/14/2024 11:17 AM AGENCY SALES DIRECTOR Oxygen Saturation 95% 09/14/2024 11:17 AM AGENCY SALES DIRECTOR Inhaled Oxygen Concentration - - Weight 88.9 kg (196 lb) 09/13/2024 9:36 AM AGENCY SALES DIRECTOR Height 162.6 cm (5' 4 ) 09/13/2024 8:32 PM AGENCY SALES DIRECTOR Body Mass Index 37.03 09/13/2024 9:36 AM AGENCY SALES DIRECTOR Procedures * CARDIAC EKG ORDER(Performed 09/14/2024) * [...] * CARDIAC EKG ORDER (09/14/2024 1:29 PM AGENCY SALES DIRECTOR) Narrative 09/14/2024 1:29 PM AGENCY SALES DIRECTOR Ordered by an unspecified provider. Scanned Document CARDIAC SERVICES ORD ERABLES * CT Head Wo Contrast (09/14/2024 6:00 AM AGENCY SALES DIRECTOR) Anatomical Region Laterality Modality Head Computed Tomogra phy 09/14/2024 6:00 AM AGENCY SALES DIRECTOR Impressions 09/14/2024 10:22 AM AGENCY SALES DIRECTOR IMPRESSION: 1.No acute intracranial hemorrhage, midline shift, or significant mass effect. > Dictated by Jaswant Anaya MD (Stage Electrician Helper) I, Luan Rouse MD have personally reviewed and interpreted this examination/study. > Interpreting Provider: Luan Rouse MD on 09/14/2024 10:22 AM Narrative 09/14/2024 10:22 AM AGENCY SALES DIRECTOR PROCEDURE: CT HEAD WO CONTRAST, DATE/TIME OF EXAM: 09/14/2024 6:00 AM, LOCATION [facility] INDICATION: R40.4: Transient alteration of awareness [...] DATE/TIME OF EXAM: 09/14/2024 6:00 AM, LOCATION [facility] INDICATION: R40.4: Transient alteration of awareness [...] effect. > Dictated by Jaswant Anaya MD (Stage Electrician Helper) I, Luan Rouse MD have personally reviewed and interpreted this examination/study. > Interpreting Provider: Luan Rouse MD on 09/14/2024 10:22 AM Lauri Girard MD CT ORDERABLES * (ABNORMAL) CBC W/O DIFFERENTIAL (09/14/2024 2:15 AM AGENCY SALES DIRECTOR) Only the most recent of2 resultswithin the time period is included. WBC 11.4(H) 4.0 - 10.7 x10E9/L 09/14/2024 3:14 AM [facility] RBC Count 4.80 3.90 - 5.20 x10E12/L 09/14/2024 3:14 AM [facility] Hemoglobin 14.4 11.9 - 15.8 g/dL 09/14/2024 3:14 AM [facility] Hematocrit 43.4 34.8 - 46.1 % [...] blue top tube. MPV 09/14/2024 3:14 AM AGENCY SALES DIRECTOR [facility] Comment:Unable to report Blood BLOOD SPECIMEN / Unknown Venipuncture / Unknown 09/14/2024 2:15 AM AGENCY SALES DIRECTOR 09/14/2024 2:40 AM AGENCY SALES DIRECTOR Nacho Clay DO LAB - HEMATOLOGY ORD ERABLES [facility] [address] [place] [address], [facility] [phone] * (ABNORMAL) BASIC METABOLIC PANEL (CALCIUM TOTAL) (09/14/2024 2:15 AM AGENCY SALES DIRECTOR) Only the most recent of2 resultswithin the [...] Unknown Venipuncture / Unknown 09/14/2024 2:15 AM AGENCY SALES DIRECTOR 09/14/2024 2:40 AM AGENCY SALES DIRECTOR Nacho Clay DO LAB - CHEMISTRY ORDE SHERIDAN Performing Organization Address [facility]/ZIP Co de Phone Number [address] [address], [place] [phone] * (ABNORMAL) GLUCOSE - POINT OF CARE (09/13/2024 10:46 PM AGENCY SALES DIRECTOR) Only the most recent of3 resultswithin the time period is included. Glucose WB/POC 133(H) 70 - 99 mg/dL 09/13/2024 10:47 PM AGENCY SALES DIRECTOR [facility] Specimen Type Cap Fingerstick 2023 10:47 PM AGENCY SALES DIRECTOR [facility] Blood BLOOD SPECIMEN / Unknown 09/13/2024 10:46 PM AGENCY SALES DIRECTOR 09/13/2024 10:47 PM AGENCY SALES DIRECTOR Lauri Girard MD LAB - POINT OF CARE ORDERABLES Performing Organization Address [facility]/ZIP Co de Phone Number [address] [address], [place] [phone] * (ABNORMAL) TROPONIN-I HIGH SENSITIVE (09/13/2024 1:22 PM AGENCY SALES DIRECTOR) [facility] Troponin I High Sensitive 18(H) <=14 ng/L 09/13/2024 2:08 PM AGENCY SALES DIRECTOR [facility] Blood BLOOD SPECIMEN / Unknown Venipuncture / Unknown 09/13/2024 1:22 PM AGENCY SALES DIRECTOR 09/13/2024 1:33 PM AGENCY SALES DIRECTOR Lauri Girard MD LAB - CHEMISTRY ORDE SHERIDAN Performing Organization Address [facility]/ZIP Co de Phone Number [address] [address], [place] [phone] * (ABNORMAL) TROPONIN-I HIGH SENSITIVE REFLEX 1HOUR (09/13/2024 8:49 AM AGENCY SALES DIRECTOR) Troponin I High Sensitive 20(H) <=14 ng/L 09/13/2024 9:34 AM [facility] Delta Troponin I HS 09/13/2024 9:34 AM [facility] Comment:Delta value intentio turner not calculated. Baseline to 1 hour specimen collection interval exceeded. Blood BLOOD SPECIMEN / Unknown Venipuncture / Unknown 09/13/2024 8:49 AM AGENCY SALES DIRECTOR 09/13/2024 8:55 AM AGENCY SALES DIRECTOR Nacho Clay LAB - CHEMISTRY ORDE RABLES Performing Organization Address City/[facility]/ZIP Co de Phone Number [facility] [address] [place] [address], [facility] [phone] * BLOOD TYPE VERIFICATION (09/13/2024 8:49 AM AGENCY SALES DIRECTOR) ABO Rh A POS 09/13/2024 9:4 9 AM [facility] BLOOD BANK LAB Blood Bank BLOOD SPECIMEN / Unknown Venipuncture / Unknown 09/13/2024 8:49 AM AGENCY SALES DIRECTOR 09/13/2024 9:05 AM AGENCY SALES DIRECTOR Nacho Clay LAB - BLOOD BANK ORD ERABLES Performing Organization Address [facility]/ZIP Co de Phone Number [facility] BLOOD BANK LAB [address] [place] [address], [facility] [phone] * (ABNORMAL) URINALYSIS W/MICROSCOPIC NO CULTURE (09/13/2024 8:45 AM AGENCY SALES DIRECTOR) Color UA Rowena(A) Straw, Yellow 09/13/2024 9:13 AM [facility] Clarity UA Cloudy(A) Clear 09/13/2024 9:13 AM [facility] Specific Mittie UA 1.034(H) 1.005 - 1.030 09/13/2024 9:13 [...] Unknown Collection / Unknown 09/13/2024 8:45 AM AGENCY SALES DIRECTOR 09/13/2024 8:55 AM [facility] - 09/13/2024 9:13 AM [facility] Nacho Clay DO LAB - URINALYSIS ORD ERABLES [facility] [address] [place] [address], [facility] [phone] * (ABNORMAL) HEMOGLOBIN A1C (09/13/2024 6:00 AM [facility]) Hemoglobin A1c 6.8(H) <=5.6 % 09/14/2024 [...] to evaluate metabolic control in patients. Reference: [place] [employer], Standards of Care in Diabetes -2020 In patients 70 years and older consider HbA1c target range of 7.0-7.5% (Reference: Neel Galvez et al. JAMDA. 2012) The Sebia assay for the measurement of HbA1c is a National Glycohemoglobin Standardization Program (NGSP) certified method. Blood BLOOD SPECIMEN / Unknown Venipuncture / Unknown 09/13/2024 6:00 AM AGENCY SALES DIRECTOR 09/13/2024 8:53 PM AGENCY SALES DIRECTOR Kareem Bagley MD LAB - CHEMISTRY KAITLYNN SWARTZ [facility] Organization Address City/State/ZIP Co de Phone Number [address] [address], [facility] [phone] * (ABNORMAL) LIPID PROFILE (09/13/2024 6:00 AM AGENCY SALES DIRECTOR) Cholesterol Total 170 <200 mg/dL 09/13/2024 6:49 [...] Unknown Venipuncture / Unknown 09/13/2024 6:00 AM AGENCY SALES DIRECTOR 09/13/2024 6:27 AM AGENCY SALES DIRECTOR Nacho Claudio Clay DO LAB - CHEMISTRY MILKAAshly SHERIDAN Performing Organization Address City/[facility]/ZIP Co de Phone Number [address] [address], [facility] [phone] * TROPONIN-I HIGH SENSITIVE BASELINE + 1HR (09/12/2024 7:10 PM AGENCY SALES DIRECTOR) Troponin I High Sensitive 12 <=14 ng/L 09/12/2024 7:49 PM AGENCY SALES DIRECTOR [facility] Blood BLOOD SPECIMEN / Unknown Venipuncture / Unknown 09/12/2024 7:10 PM AGENCY SALES DIRECTOR 09/12/2024 7:30 PM AGENCY SALES DIRECTOR Nacho Clay DO LAB - CHEMISTRY KAITLYNN SWARTZ Performing Organization Address [facility]/ZIP Co de Phone Number [address] [address], [facility] [phone] * (ABNORMAL) TSH REFLEX FREE T4 (09/12/2024 7:10 PM AGENCY SALES DIRECTOR) TSH 24.558(H) 0.350 - 4.940 uIU/mL 09/12/2024 9:14 PM AGENCY SALES DIRECTOR [facility] Blood BLOOD SPECIMEN / Unknown Venipuncture / Unknown 09/12/2024 7:10 PM AGENCY SALES DIRECTOR 09/12/2024 7:30 PM AGENCY SALES DIRECTOR Lauri Girard MD LAB - CHEMISTRY KAITLYNN SWARTZ [address] [address], [place] [phone] * PHOSPHORUS BLOOD (09/12/2024 7:10 PM AGENCY SALES DIRECTOR) Phosphorus 3.2 2.9 - 5.1 mg/dL 09/12/2024 7:50 PM AGENCY SALES DIRECTOR [facility] Blood BLOOD SPECIMEN / Unknown Venipuncture / Unknown 09/12/2024 7:10 PM AGENCY SALES DIRECTOR 09/12/2024 7:30 PM AGENCY SALES DIRECTOR Lauri Girard MD LAB - CHEMISTRY KAITLYNN SWARTZ Performing Organization Address City/[facility]/ZIP Co de Phone Number [address] [address], [place] [phone] * MAGNESIUM BLOOD (09/12/2024 7:10 PM AGENCY SALES DIRECTOR) Pathologist [facility] Magnesium 1.8 1.6 - 2.6 mg/dL 09/12/2024 7:50 PM AGENCY SALES DIRECTOR [facility] Blood BLOOD SPECIMEN / Unknown Venipuncture / Unknown 09/12/2024 7:10 PM AGENCY SALES DIRECTOR 09/12/2024 7:30 PM AGENCY SALES DIRECTOR Lauri Girard MD LAB - CHEMISTRY KAITLYNN SWARTZ Performing Organization Address [facility] Co de Phone Number [address] [address], [place] [phone] * T4 FREE (09/12/2024 7:10 PM AGENCY SALES DIRECTOR) Pathologist [facility] T4 Free 0.7 0.7 - 1.5 ng/dL 09/12/2024 9:47 PM AGENCY SALES DIRECTOR [facility] Blood BLOOD SPECIMEN / Unknown Venipuncture / Unknown 09/12/2024 7:10 PM AGENCY SALES DIRECTOR 09/12/2024 7:30 PM AGENCY SALES DIRECTOR Lauri Girard MD LAB - CHEMISTRY KAITLYNN SWARTZ Performing Organization Address [facility]/ZIP Co de Phone Number [address] [address], [place] [phone] * EKG 12-LEAD (09/12/2024 7:04 PM AGENCY SALES DIRECTOR) Ventricular Rate 97 BPM [facility] MUSE Atrial Rate 97 BPM [facility] MUSE P-R Interval 186 ms [facility] MUSE QRS Duration ms 106 ms [facility] MUSE Q-T Interval ms 388 ms [facility] MUSE QTC Calculation (Bezet) 492 ms [facility] MUSE Calculated P [place] 60 degrees [facility] MUSE Calculated R [place] -29 degrees [facility] Calculated T [place] 94 degrees [facility] Interpretation EKG NORMAL SINUS RHYTHM MINIMAL VOLTAGE CRITERIA FOR LVH, MAY BE NORMAL VARIANT ( [place] product ) ANTEROSEPTAL INFARCT , AGE UNDETERMINED ABNORMAL ECG NO PREVIOUS ECGS AVAILABLE Confirmed by JEREMIAH CANNON MD ([id number]) on 09/15/2024 2:33:28 PM [facility] 09/12/2024 7:04 PM AGENCY SALES DIRECTOR 09/15/2024 2:33 PM AGENCY SALES DIRECTOR Nacho Clay DO ECG ORDERABLES [facility] MUSE * XR Chest 1Vw Portable (09/12/2024 6:54 PM AGENCY SALES DIRECTOR) Anatomical Region Laterality Modality Chest Digital Radiogra phy 09/12/2024 7:53 PM AGENCY SALES DIRECTOR Narrative 09/12/2024 8:45 PM AGENCY SALES DIRECTOR PROCEDURE: XR CHEST 1VW PORTABLE, DATE/TIME OF EXAM: 09/12/2024 7:05 PM, LOCATION [facility] INDICATION: R47.01: Aphasia R40.4: Transient alteration [...] visualized. Report dictated by Maikel Marr MD (bank president). IKlarissa MD have personally reviewed and interpreted this examination/study. > Interpreting Provider: Klarissa Munoz MD on 09/12/2024 8:45 PM Procedure Note Klarissa Munoz MD - 09/12/2024 PROCEDURE: XR CHEST 1VW PORTABLE, DATE/TIME OF EXAM: 09/12/2024 7:05PM, LOCATION [facility] INDICATION: R47.01: Aphasia R40.4: Transient alteration [...] visualized. Report dictated by Maikel Marr MD (bank president). I, Klarissa Munoz MD have personally reviewed and interpreted this examination/study. > Interpreting Provider: Klarissa Munoz MD on 09/12/2024 8:45 PM Nacho R Samanthaesi DO DIAGNOSTIC IMAGING O RDERABLES * CT ANGIO BRAIN NECK STROKE (09/12/2024 6:42 PM AGENCY SALES DIRECTOR) Anatomical Region Laterality Modality Head Computed Tomogra phy 09/12/2024 6:57 PM AGENCY SALES DIRECTOR Impressions 09/12/2024 7:19 PM AGENCY SALES DIRECTOR IMPRESSION: 1. No acute intracranial hemorrhage. 2. No large arterial occlusions or significant stenoses identified in the head or neck. Viz.AI was used for large vessel occlusion detection. > Interpreting Provider: Milagros Flores MD on 09/12/2024 7:19 PM Narrative 09/12/2024 7:19 PM AGENCY SALES DIRECTOR PROCEDURE: CT ANGIO BRAIN NECK STROKE, DATE/TIME OF EXAM: 09/12/2024 6:43 PM, LOCATION [facility] INDICATION: Code Stroke ADDITIONAL CLINICAL INFORMATION: [...] STROKE, DATE/TIME OF EXAM: :43 PM, LOCATION [facility] INDICATION: Code Stroke ADDITIONAL CLINICAL INFORMATION: [...] Nacho Clay DO CT ORDERABLES * PT-INR [facility] (09/12/2024 6:39 PM AGENCY SALES DIRECTOR) PT 12.9 12.1 - 14.8 Seconds 09/12/2024 7:05 PM AGENCY SALES DIRECTOR [facility] INR 1.0 See Comment 09/12/2024 7:05 PM AGENCY SALES DIRECTOR [facility] Comment:The suggested therap eutic range for standard coumadin (warfarin) therapy is an INR of 2.0-3.0. For high-risk patients (Mechanical Mitral Valve Prosthesis, etc.), the suggested prophylactic therapeutic range is an INR of 2.5-3.5. Blood BLOOD SPECIMEN / Unknown Venipuncture / Unknown 09/12/2024 6:39 PM AGENCY SALES DIRECTOR 09/12/2024 6:45 PM AGENCY SALES DIRECTOR Nacho Clay DO LAB - COAGULATION OR DERABLES Performing Organization Address City/[facility]/ZIP Co de Phone Number [facility] LABORATORY [facility] [address] [place] [address], [facility] [phone] * TYPE + SCREEN PANEL (09/12/2024 6:39 PM AGENCY SALES DIRECTOR) Pathologist [facility] Antibody Screen NEG 7:42 PM AGENCY SALES DIRECTOR [facility] BLOOD BANK LAB ABO Rh A POS 09/12/2024 7:42 PM AGENCY SALES DIRECTOR [facility] BLOOD BANK LAB Blood Bank BLOOD SPECIMEN / Unknown Venipuncture / Unknown 09/12/2024 6:39 PM AGENCY SALES DIRECTOR 09/12/2024 6:50 PM AGENCY SALES DIRECTOR Nacho Clay DO LAB - BLOOD BANK ORD ERABLES Performing Organization Address City/[facility]/ZIP Co de Phone Number [facility] BLOOD BANK LAB [address] [place] [address], [facility] [phone] * CBC W AUTO DIFFERENTIAL (09/12/2024 6:39 PM AGENCY SALES DIRECTOR) Pathologist [facility] WBC 6.5 4.0 - 10.7 x10E9/L 09/12/2024 [...] Unknown Venipuncture / Unknown 09/12/2024 6:39 PM AGENCY SALES DIRECTOR 09/12/2024 6:45 PM AGENCY SALES DIRECTOR Nacho Clay DO LAB - HEMATOLOGY ORD ERABLES [facility] [address] [place] [address], [facility] [phone] * (ABNORMAL) COMPREHENSIVE METABOLIC PANEL (09/12/2024 6:39 PM [facility]) BUN 20 7 - 26 mg/dL [...] Unknown Venipuncture / Unknown 09/12/2024 6:39 PM AGENCY SALES DIRECTOR 09/12/2024 6:45 PM AGENCY SALES DIRECTOR Nacho Clay DO LAB - CHEMISTRY ORDE RABLES [address] [address], [facility] [phone] * CREATININE - POCT INTERFACED (09/12/2024 6:36 PM AGENCY SALES DIRECTOR) Creatinine POCT 0.54 0.30 - 1.30 mg/dL 09/12/2024 6:37 PM [facility] eGFR >90 >=90 mL/min/1.7 3 m2 09/12/2024 6:37 PM [facility] Blood BLOOD SPECIMEN / Unknown 09/12/2024 6:36 PM AGENCY SALES DIRECTOR 09/12/2024 6:37 PM AGENCY SALES DIRECTOR Nacho Clay DO LAB - POINT OF CARE ORDERABLES [address] [address], [place] [phone] * INR WHOLE BLOOD - POINT OF CARE (IP) STROKE (09/12/2024 6:33 PM AGENCY SALES DIRECTOR) INR 0.9 0.9 - 1.2 09/12/2024 6:36 PM [facility] Device [id number] 09/12/2024 6:36 PM [facility] Packing Machine Feeder ID [id number] 09/12/2024 6:36 PM [facility] Blood BLOOD SPECIMEN / Unknown 09/12/2024 6:33 PM AGENCY SALES DIRECTOR 09/12/2024 6:36 PM AGENCY SALES DIRECTOR Nacho Clay DO LAB - POINT OF CARE ORDERABLES [facility] [address] [place] [address], [facility] [phone] * CT BRAIN - Stroke (09/12/2024 6:28 PM AGENCY SALES DIRECTOR) Anatomical Region Laterality Modality Head Computed Tomogra phy 09/12/2024 6:30 PM AGENCY SALES DIRECTOR Impressions 09/12/2024 6:50 PM AGENCY SALES DIRECTOR IMPRESSION: 1.No acute intracranial hemorrhage. 2.Please note [...] 09/12/2024 6:50 PM Narrative 09/12/2024 6:50 PM AGENCY SALES DIRECTOR PROCEDURE: CT BRAIN STROKE, DATE/TIME OF EXAM: 09/12/2024 6:29 PM, LOCATION [facility] INDICATION: Code Stroke EXAMINATION: Computed tomography [...] DATE/TIME OF EXAM: 09/12/2024 6:29 PM, LOCATION [facility] INDICATION: Code Stroke EXAMINATION: Computed tomography [...] Nacho Clay DO CT ORDERABLES Care Teams Lens Mold Setter Relationship Specialty Start Date End Date Brianne Ko APRN-BARRERA [address] [phone] PCP - General Nurse Practitioner Family 09/12/24
--- OUTSIDE RECORDS SUMMARY | 2024-11-26 18:12 | XMS_ITS | Continuity of Care Document ---
Author Organization [place] [facility], [facility] Podiatry Sathya Padilla Address [address] [place] [address] Care Team Providers Care Supplemental Manager Name Role Phone SONYA JACKSON Primary Care Provider DARLING ANGEL Farm Appraiser KARYN MORAN Oyster Farmer Assessment Encounter Date Assessment Date Assessment LastModified by Organization Details LastModified Time 11/25/2024 11/25/2024 This note is dictated and transcribed by [employer]. Home Weatherizing Worker variances may occur. Despite proofreading, typographical errors may occur. Occasional wrong-word or 'eteza-s-yodm' substitutions may have occurred due to the inherent limitations of voice recording. Read the chart carefully and recognize, using context, where substitutions have occurred. [email or web address] Not available 11/25/2024 14:31:59 Plan of Treatment Reminders Order Date Submit Date Provider Last Modified By Organization Details Last Modified Time Details Appointments Establish ed Patient 15 2024 10:45A M Heron Harley DPM Not available Not available Not available Any 15 2024 10:30A M Sonya barnes MD Not available Not available Not available Lab None recorded. Referral None recorded. Procedures None recorded. Surgeries None recorded. Imaging None recorded. Medication Orders None recorded. Patient TargetsNo targets recorded. Patient InstructionsNo instructions recorded. Reason for Referral None Reported. Problems Name Problem SNOMED Code Status Onset Date Resolution Date Notes Provider Name and Address Organization Details Recorded Time Hammer toe 939956234 Active 2020 Not Available [facility] 3 22:20:53 Acute sinusitis 25634326 Active 2021 Not Available [facility] 3 22:20:53 Increased frequency of urination 318023881 Active 2021 Not Available [facility] 3 22:20:53 Recurrent urinary tract infection 470579442 Active 2021 Not Available [facility] 3 22:20:53 Osteoarthr itis of knee 440614882 Active Not Available [facility] 3 22:20:53 Anemia 394396590 Active 2021 Not Available [facility] 3 22:20:53 Pain in right foot 3964839578991 07 Active 2021 Not Available [facility] 3 22:20:53 Vitamin D deficiency 82708628 Active 2021 Not Available [facility] 3 22:20:53 Acute urinary tract infection 661330048 Active 2022 Not Available [facility] 3 22:20:53 Cough 24008160 Active 2021 Not Available [facility] 3 22:20:53 Blister of toe without infection 25673230 Active Not Available [facility] 3 22:20:53 Tinea pedis 3412717 Active 2021 Not Available [facility] 3 22:20:53 Diabetes mellitus 20562177 Active 2020 Not Available [facility] 3 22:20:53 Neck pain 82232799 Active 2021 Not Available [facility] 3 22:20:53 Upper respirator y infection 52467171 Active 2022 Not Available [facility] 3 22:20:53 Hypothyroi dism 09007127 Active 2022 Not Available [facility] 3 22:20:53 Essential hypertensi on 56733626 Active 2022 Not Available [facility] 3 22:20:53 Hyperlipid emia 02757903 Active 2022 Not Available [facility] 3 22:20:53 Atrial fibrillati on 44508968 Active 2022 Not Available [facility] 3 22:20:53 Anxiety 62637392 Active 2022 Not Available [facility] 3 22:20:53 Edema of lower extremity 236254984 Active 2022 Not Available [facility] 3 22:20:53 Intramural calcificat ion of brendabladde r 782502943 Active 2022 Not Available [facility] 3 22:20:53 Type 2 diabetes mellitus without complicati on 941313247 Active 2022 Not Available [facility] 3 22:20:53 Cellulitis of right lower limb 7927601516501 9104 Active 2022 Not Available [facility] 3 22:20:53 Cellulitis of lower limb 972063003 Active 2022 Not Available [facility] 3 22:20:53 Iron deficiency 36401249 Active 2022 Not Available [facility] 3 22:20:53 Cobalamin deficiency 017229282 Active 2022 Not Available [facility] 3 22:20:53 Pain of bilateral knee joints 7933846565053 04 Active 2022 Not Available [facility] 3 22:20:53 Hammer toe 181511130 Active 2022 Not Available [facility] 3 22:20:53 Dystrophia unguium 99197519 Active 2022 Heron Harley DPM [address], [place], [address] , [facility] [employer] [facility] 3 17:34:30 Cut of great toe 844137083 Active 2022 Heron Harley DPM [address], [place], [address] , [facility] 3 17:34:56 Chronic kidney disease 762146955 Active 2023 Karin Sullivan MA null, [facility] 4 15:46:27 Urinary symptoms 898468377 Active 2023 Karin Sullivan MA null, [facility] [facility] 4 15:34:49 Unsteady when walking 59426552 Active 2024 Sonya vigil MD [address], [place], [address] , [facility] [employer] [facility] 5 17:38:29 Abscess of skin of right ankle 9579768602335 9108 Active 2024 Heron Harley DPM [address], [place], [address] , [facility] [facility] 5 13:19:01 Lymphedema of lower extremity 724839538 Active 2024 Heron Harley DPM [address], [place], [address] , [facility] [facility] 5 13:19:44 Right lower leg blister with infection Active 2024 Heron Harley DPM [address], [place], [address] , [facility] [facility] 5 13:21:33 Generalize d rash 921076728 Active 2024 Jerrica Ace MA null, [facility] [employer] [facility] 5 08:58:58 Tear of skin 909531797 Active 2024 Heron Harley DPM [address], [place], [address] , [facility] [facility] 5 14:32:06 Problem Notes None recorded. Procedures Surgical History Date Name Laterality Status Provider Name and Address Organization Details Recorded Time 5 Nail Debridement completed Heron Harley DPM [address], [place], [address], [facility] [employer] [facility] 11/25/2024 14:31:43 5 Abcess Drainage completed Heron Harley DPM [address], [place], [address], [facility] 11/15/2024 11:52:42 5 Transitional_Ca re_Management completed Sonya Jackson MD [address], [place], [address], [facility] 09/22/2024 14:37:41 4 Medicare Wellness CPT Code, subsequent completed John Hinojosa LPN [place] - [facility] 02/23/2024 19:08:17 4 Advanced Care Planning completed John Hinojosa LPN [facility] [facility] 02/26/2024 12:51:32 3 Nail Debridement completed Heron Harley DPM [address], [place], [address], [facility] 08/11/2023 17:34:12 Hysterectomy, Partial completed PARVIZ Mark [place] - [facility] 11/27/2023 10:48:57 Imaging Results None recorded. Procedure Notes None recorded. Medical Equipment None [...] e 50 mcg/actua tion nasal spray,[place] [facility] 1 spray every day by intranas al [...] Updated DateTime 5 165.1 cm 32.3 kg/m2 71378.9 2 g 84 /min 14 /min 98 % 98 % 147 mm[Hg] 70 mm[Hg] Saria MCCORMACK - [place] [employer] [facility] 5 14:14:24 Social History Question Answer Notes LastModified by Organization Details LastModified Time Tobacco Smoking Status Never Smoker Not Available [facility] 11/13/2022 14:10:12 Do You Have An Advance Directive? No Information Provided [email or web address] Information not available 02/26/2024 What Is Your Level Of Alcohol Consumption? Occasional MIGRATION.743 [id number] Information not available 11/13/2022 Are You Blind Or Do You Have Difficulty Seeing? No MIGRATION.220 2642486 Information not available 11/13/2022 Is Blood Transfusion Acceptable In An Emergency? Yes [email or web address] Information not available 02/26/2024 What Is Your Level Of Caffeine Consumption? Moderate MIGRATION.098 6513106 Information not available 11/13/2022 How Much Tobacco Do You Chew? None MIGRATION.677 9206241 Information not available 11/13/2022 In The 14 Days Before Symptom Onset, Have You Had Close Contact With A Laboratory-conf irmed COVID-19 While That Case Was Ill? No MIGRATION.953 7012921 Information not available 11/13/2022 In The 14 Days Before Symptom Onset, Have You Had Close Contact With A Person Who Is Under Investigation For COVID-19 While That Person Was Ill? No MIGRATION.469 4825075 Information not available 11/13/2022 Are You Currently Employed? No Information not available 02/26/2024 Are You Deaf Or Do You Have Serious Difficulty Hearing? No MIGRATION.363 6232424 Information not available 11/13/2022 What Type Of Diet Are You Following? REGULAR MIGRATION.377 7964370 Information not available 11/13/2022 Which Illicit Or Recreational Drugs Have You Used? None MIGRATION.489 5695748 Information not available 11/13/2022 Do You Or Have You Ever Used E-cigarettes Or Vape? Never Used Electronic Cigarettes MIGRATION.295 [id number] Information not available 11/13/2022 What Is The Highest Grade Or Level Of School You Have Completed Or The Highest Degree You Have Received? [id number] MIGRATION.837 8959212 Information not available 11/13/2022 What Is Your Occupation? Retired MIGRATION.537 2076925 Information not available 11/13/2022 How Many Days Of Moderate To Strenuous Exercise, Like A Brisk Walk, Did You Do In The Last 7 Days? 0 [email or web address] Information not available 02/26/2024 Have There Been Any Changes To Your Family Or Social Situation? No MIGRATION.917 1772282 Information not available 11/13/2022 What Is The Fluoride Status Of Your Home? Unknown MIGRATION.586 0037936 Information not available 11/13/2022 Are There Any Guns Present In Your Home? No MIGRATION.071 7222972 Information not available 11/13/2022 Do You Use Insect Repellent Routinely? No MIGRATION.974 1702803 Information not available 11/13/2022 Where Do You Live? SingleLevelHouse MIGRATION.494 4189989 Information not available 11/13/2022 Presence Of Domestic Violence No [email or web address] Information not available 02/26/2024 Guns Present In The Home? No [email or web address] Information not available 02/26/2024 Are You Able To Care For Yourself? Yes Information not available 02/26/2024 Are You Blind Or Do Yo Have Difficulty Seeing? No [email or web address] Information not available 02/26/2024 Are You Deaf Or Do You Have Serious Difficulty Hearing? No [email or web address] Information not available 02/26/2024 General Stress Level? High [email or web address] Information not available 02/26/2024 Live Alone Of With Others? With Others Information not available 02/26/2024 Do You Have A Medical Power Of Research Staff Member? No MIGRATION.265 6046565 Information not available 11/13/2022 What Was The Date Of Your Most Recent Tobacco Screening? 11/10/2024 Information not available 11/10/2024 How Many Children Do You Have? 5 [email or web address] Information not available 05/27/2024 Have You Ever Been Counseled For Unhealthy Alcohol Use? No Information not available 02/26/2024 Do You Have Any Pets? No [email or web address] Information not available 02/26/2024 What Is Your Relationship Status? MIGRATION.140 7849826 Information not available 11/13/2022 Do You Use Your Seat Belt Or Car Seat Routinely? Yes MIGRATION.800 1169469 Information not available 11/13/2022 Do You Have Smoke And Carbon Monoxide Detectors In Your Home? Yes MIGRATION.711 0092959 Information not available 11/13/2022 Are You Passively Exposed To Smoke? No MIGRATION.649 8370362 Information not available 11/13/2022 Do You Or Have You Ever Used Smokeless Tobacco? Never Used Smokeless Tobacco MIGRATION.606 7374647 Information not available 11/13/2022 Are There Any Smokers In Your House? No MIGRATION.733 2019041 Information not available 11/13/2022 What Types Of Sporting Activities Do You Participate In? None [email or web address] Information not available 02/26/2024 Do You Feel Stressed (tense, Restless, Nervous, Or Anxious, Or Unable To Sleep At Night)? [id number] [email or web address] Information not available 02/26/2024 Do You Use Any Illicit Or Recreational Drugs? No MIGRATION.964 5296989 Information not available 11/13/2022 Do You Use Sunscreen Routinely? No MIGRATION.869 0149228 Information not available 11/13/2022 Has Tobacco Cessation Counseling Been Provided? No N/a Information not available 11/27/2023 Have You Recently Traveled Abroad? No MIGRATION.883 4866335 Information not available 11/13/2022 Do You Have Any Dietary Restrictions? No MIGRATION.270 1494792 Information not available 11/13/2022 Do You Or Have You Ever Used Any Other Forms Of Tobacco Or Nicotine? No MIGRATION.258 2973820 Information not available 11/13/2022 Sex: Unknown Functional Status Question Answer Note LastModified by Organizat ion Details LastModified Time Do you have difficulty walking or climbing stairs? Yes Uses cane [email or web address] Information not available 02/26/2024 Do you have transportation difficulties? No MIGRATION.891097 0112 Information not available 11/13/2022 Are you able to walk? YESASSIST cane or walker [email or web address] Information not available 02/26/2024 Do you have difficulty doing errands alone? No MIGRATION.069290 0076 Information not available 11/13/2022 Are you able to care for yourself? Yes MIGRATION.156681 9259 Information not available 11/13/2022 Do you have difficulty dressing or bathing? No MIGRATION.955447 6612 Information not available 11/13/2022 What is your exercise level? None MIGRATION.757104 1361 Information not available 11/13/2022 Mental Status Question Answer Note LastModified by Organizat ion Details LastModified Time Do you have difficulty concentrating, remembering or making decisions? No MIGRATION.693345886 6 Information not available 11/13/2022 Family History Relationship Description Onset Age of this Age Resolved Age Notes LastModified by Organization Details LastModified Time Brother Malignant neoplastic disease MIGRATION.104 [id number] Not available 11/13/2022 14:10:22 Brother Heart disease MIGRATION.142 4258074 Not available 11/13/2022 14:10:22 Brother Depressive disorder MIGRATION.328 4824784 Not available 11/13/2022 14:10:22 Daughter Essential hypertension MIGRATION.124 [id number] Not available 11/13/2022 14:10:22 Mother Dermatomyosi tis MIGRATION.655 2118939 Not available 11/13/2022 14:10:22 Medical History Condition Response ARTHRITIS ANXIETY DISORDER Y USE OF BLOOD THINNERS Y ANEMIA/BLOOD DISORDER Y ATRIAL FIBRILLATION Y [...] PF, 30 mcg/0.3 mL dose 06/28/2021 completed Daniella Liang RMLenny [email or web address], [place] - [facility] [facility] [email or web address] 10/21/2024 11:35:19 COVID-19, mRNA, LNP-S, PF, 30 mcg/0.3 mL dose 06/07/2021 completed Daniella Liang RMA null, [place] [facility] [email or web address] 10/21/2024 11:35:19 Past Encounters Encounter ID Performer Location Encounter Start Date Encounter Closed Date Diagnosis/Indication Diagnosis SNOMED-CT Code Diagnosis ICD10 Code Diagnosis Note [id number] Sonya vigil MD [facility] [address] [place] [address] 11/10/2024 17:04:04 11/10/2024 18:02:20 Essential hypertension 52076086 I10 Not on lisinopril -HCTZ 20-25mg daily On losartan 25mg daily given by Dr Angel IJNot on metoprolol ER 25mg dailyOn K ER 10meq dailyGet labs Screening - NAD 52797858 3 Z13.9 C-scope/Ma mmogram/DE XA/PAP: Not doing any, declined 11/27/2023 , no complaints Get yearly flu shot, get tdap if not doneCan do Shingrix vaccineGet RSV vaccineGet PCV #20 if not done or if any series not doneGet COVID 19 vaccine and its boosters RTC in 1 months, do labs, ER if worse, she did verbalize her understand ing of the above Hypothyroidism 78835207 E03.9 On levothyrox ine 100mcgs daily Edema of l ower extremity 113862039 R60.0 On losartanOn KHas seen Dr Moran 12/31/2023 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 279942637 E11.9 Get labs Intramural calcification of gallbladder 008693259 K82.8 Does not want any w/u or tests or referrals for this Anemia 925352396 D64.9 Get labs Hammer toe 208560255 M20 .41 See podiatry Pain of bi lateral knee joints 1904477415 36348 M25.561 M25.562 Has seen ortho in the past Dr Marrufo w see Dr Soriano Hyperlipidemia 30292541 E78.5 Not on simvastati n 40mg dailyOn rosuvastat in 40mg dailyGet labs Vitamin D deficiency 347 25828 E55.9 Repeat the vit d level Atrial fibrillation 4943 6004 I48.91 On xarelto 20mg daily[address] Dr Moran Chronic ki dney disease 307050372 N18.[address] Angel IJ, last OV 02/03/2024 On calcitriol 0/25mcgs dailyOn vit D weekly Unsteady when walking 22 332480 R26.89 Uses a walker, get a lightweigh t wheelchair , as this would help her in the ADLs and IADLs and help with mobilityOV 11/10/2024 : Declined getting a wheelchair , states that she uses her cane and she does have a walker Cellulitis of lower limb 979222704 L03.119 Seen in the ER 11/08/2024 , now on doxycyclin eStates that she did see Dr Moran [facility] and the antibiotic has helped Anxiety 80922765 F41.9 See case, as per daughter the patient is worried about her son, who has cancer, not suicidal or homicidal, wants a 'nerve pill', will start on very limited and low dose alprazolam , all side effects explained to her [id number] Heron Harley DPM [facility] [place] [address] [place] [address] 11/15/2024 11:22:48 11/17/2024 08:09:22 Cellulitis of right lower limb 0051765265 3618744 L03.115 finish antibiotic sif worsening seek medical attention immediatel y Abscess of skin of right ankle 3817436743 0598525 L02.415 medial anklelance d and expressed of fluiddress ing applied with mild compressio napply Betadine wet-to-dry dressing dailyFollo w-up in 1 week Lymphedema of lower extremity 552216152 I89.0 recommend chronic compressio n therapy, reviewed treatment optionsrec ommend support compressio n socks since patient is unable to wear compressio n stockings Right lowe r leg blister with infection 6033844183 0893174 L08.9 as above [id number] Heron Harley DPM [facility] [place] [address] [place] [address] 11/25/2024 14:07:53 11/25/2024 14:33:26 Cellulitis of right lower limb 9014545372 5328758 L03.115 resolved Dystrophia unguium 18031 009 L60.3 Nails 1 through 10 were debrided with sharp mechanical debridemen t without incident. Nails were debrided and greater than 50% length and thickness where needed. Tear of skin 908956638 T 14.8XXA right lower leg [id number] on wound careeducat ed on daily dressingsF ollow-up in 1 week if not healed Health Concerns Section Related Observation LastModified by Organization Detai ls LastModified Time None Recorded Concern Status LastModified by Organization Details LastModified Time None Recorded Payers Encounter Date Sequence Insurance Name Policy Number Policy Shoemaker Covered Member ID Shoemaker Member ID Guarantor Name 11/25/2024 1 [employer] (MEDICARE REPLACEMENT/A DVANTAGE - PPO) Wendy Rose [id number] Wendy Rose Notes Date Note Type Note Provider Name and Address Organization Details Recorded Time 11/25/2024 text/html . Patient is 84-year-old female [...] any other complaints. Heron Harley DPM [address], [place], [address], [place] [facility] 11/25/2024 14:33:25 OBGyn Episode No OBEpisode recorded.
--- OUTSIDE RECORDS SUMMARY | 2024-11-26 18:12 | XMS_ITS | Referral Summary ---
Author Organization [facility] Address [address] [place] [address] Care Team Providers Care Subeditor Name Role Phone Brianne Ko APRN-BARRERA Primary Care Provider [phone] Source Comments [facility],non-owned Affiliates and Associated Physician Practices is amultiple site organization consisting of ambulatory clinics and hospital sitesin [place], [place], [place] and [place]. This disclosure is being madepursuant to the Care Everywhere program and may not contain all information available regarding this patient. Last updated 18.[facility] Encounters Date Type Department Care Team Description 09/16/2024 Telephone Transitional Care at [facility] [address] [place] [phone] Karly Upton RNinside sales 09/12/2024 6:24 PM [facility] [employer] [facility] - 09/14/2024 12:47 PM [facility] Hospital Encounter [facility] EMERGENCY DEPARTMENT [address] [place] [phone] Nacho Clay, Lauri Pino MD Aphasia (Primary [...] Comments Blood Pressure 172/72 09/14/2024 11:16 AM [facility] [facility] Pulse 88 09/14/2024 11:17 AM [employer] Temperature 36.7 C (98 F) 09/13/2024 10:47 PM [employer] Respiratory Rate 18 09/14/2024 11:17 AM [employer] Oxygen Saturation 95% 09/14/2024 11:17 AM [employer] Inhaled Oxygen Concentration - - Weight 88.9 kg (196 lb) 09/13/2024 9:36 AM [employer] Height 162.6 cm (5' 4 ) 09/13/2024 8:32 PM [employer] Body Mass Index 37.03 09/13/2024 9:36 AM [employer] Functional Status Functional Status Response Date of [...] CARDIAC EKG ORDER 09/14/2024 1:2 9 PM [facility] CT HEAD WO CONTRAST Routine 09/14/2024 6 :00 AM [employer] Transient alteration of awareness Facial droop CBC W/O DIFFERENTIAL STAT 09/14/2024 2:15 AM [employer] BASIC METABOLIC PANEL (CALCIUM TOTAL) STAT 09/14/2024 2:15 AM [employer] GLUCOSE - POINT OF CARE Routine 09/13/2024 10:46 PM [employer] GLUCOSE - POINT OF CARE Routine 09/13/2024 5:46 PM [employer] TROPONIN-I HIGH SENSITIVE STAT 09/13/2024 1:22 PM [employer] Aphasia GLUCOSE - POINT OF CARE Routine 09/13/2024 12:19 PM [employer] BLOOD TYPE VERIFICATION STAT 09/13/2024 8:49 AM [employer] TROPONIN-I HIGH SENSITIVE REFLEX 1HOUR Timed 09/13/2024 8:49 AM [employer] URINALYSIS W/MICROSCOPIC NO CULTURE STAT 09/13/2024 8:45 AM [employer] HEMOGLOBIN A1C Add on 09/13/2024 6:00 AM [employer] LIPID PROFILE STAT 09/13/2024 6:00 AM [employer] CBC W/O DIFFERENTIAL STAT 09/13/2024 6:00 AM [employer] BASIC METABOLIC PANEL (CALCIUM TOTAL) STAT 09/13/2024 6:00 AM [employer] T4 FREE Routine 09/12/2024 7:10 PM [employer] Aphasia Transient alteration of awareness Facial droop Hypothyroidism, unspecified type TSH REFLEX FREE T4 Routine 09/12/2024 7: 10 PM [employer] Aphasia Transient alteration of awareness Facial droop Hypothyroidism, unspecified type PHOSPHORUS BLOOD Routine 09/12/2024 7:10 PM [employer] Aphasia Transient alteration of awareness MAGNESIUM BLOOD Routine 09/12/2024 7:10 PM [employer] Aphasia Transient alteration of awareness TROPONIN-I HIGH SENSITIVE BASELINE + 1HR STAT 09/12/2024 7:10 PM [employer] EKG 12-LEAD STAT 09/12/2024 7:04 PM [employer] Aphasia Transient alteration of awareness XR CHEST 1VW PORTABLE STAT 09/12/2024 6:54 PM [employer] Aphasia Transient alteration of awareness CT ANGIO BRAIN NECK STROKE STAT 09/12/2024 6:42 PM [employer] Aphasia Transient alteration of awareness TYPE + SCREEN PANEL STAT 09/12/2024 6 :39 PM [employer] PT-INR [facility] STAT 09/12/2024 6:39 PM [employer] COMPREHENSIVE METABOLIC PANEL STAT 09/12/2024 6:39 PM [employer] CBC W AUTO DIFFERENTIAL STAT 09/12/2024 6:39 PM [employer] CREATININE - POCT INTERFACED Routine 09/12/2024 6:36 PM [employer] INR WHOLE BLOOD - POINT OF CARE (IP) STROKE Routine 09/12/2024 6:33 PM [facility] CT BRAIN STROKE STAT 09/12/2024 6:28 PM [employer] Aphasia Transient alteration of awareness from Last 3 Months Results * CARDIAC EKG ORDER (09/14/2024 1:29 PM [employer]) Narrative 09/14/2024 1:29 PM [employer] Ordered by an unspecified provider. Scanned Document CARDIAC SERVICES ORD ERABLES * CT Head Wo Contrast (09/14/2024 6:00 AM [employer]) Anatomical Region Laterality Modality Head Computed Tomogra phy 09/14/2024 6:00 AM [employer] Impressions 09/14/2024 10:22 AM [employer] IMPRESSION: 1.No acute intracranial hemorrhage, midline shift, or significant mass effect. > Dictated by Jaswant Anaya MD (Lead Engineer) I, Luan Rouse MD have personally reviewed and interpreted this examination/study. > Interpreting Provider: Luan Rouse MD on 09/14/2024 10:22 AM Narrative 09/14/2024 10:22 AM [facility] [facility] PROCEDURE: CT HEAD WO CONTRAST, DATE/TIME OF EXAM: 09/14/2024 6:00 AM, LOCATION [facility] INDICATION: R40.4: Transient alteration of awareness [...] DATE/TIME OF EXAM: 09/14/2024 6:00 AM, LOCATION [facility] INDICATION: R40.4: Transient alteration of awareness [...] effect. > Dictated by Jaswant Anaya MD (Lead Engineer) I, Luan Rouse MD have personally reviewed and interpreted this examination/study. > Interpreting Provider: Luan Rouse MD on 09/14/2024 10:22 AM Lauri Girard MD CT ORDERABLES * (ABNORMAL) CBC W/O DIFFERENTIAL (09/14/2024 2:15 AM [employer]) Only the most recent of2 resultswithin the time period is included. WBC 11.4(H) 4.0 - 10.7 x10E9/L 09/14/2024 3:14 AM [employer] RBC Count 4.80 3.90 - 5.20 x10E12/L 09/14/2024 3:14 AM [employer] [facility] Hemoglobin 14.4 11.9 - 15.8 g/dL 09/14/2024 3:14 AM [facility] Hematocrit 43.4 34.8 - 46.1 % 09/14/2024 [...] Unknown Venipuncture / Unknown 09/14/2024 2:15 AM [employer] 09/14/2024 2:40 AM [employer] Nacho Clay DO LAB - HEMATOLOGY ORD ERABLES [facility] [address] [place] [address], [facility] [phone] * (ABNORMAL) BASIC METABOLIC PANEL (CALCIUM TOTAL) (09/14/2024 2:15 AM [employer]) Only the most recent of2 resultswithin the [...] Unknown Venipuncture / Unknown 09/14/2024 2:15 AM [employer] 09/14/2024 2:40 AM [employer] Nacho Clay DO LAB - CHEMISTRY ORDE [facility] [address] [place] [address], [place] [phone] * (ABNORMAL) GLUCOSE - POINT OF CARE (09/13/2024 10:46 PM [employer]) Only the most recent of3 resultswithin the time period is included. [facility] Glucose WB/POC 133(H) 70 - 99 mg/dL 09/13/2024 10:47 PM [facility] Specimen Type Cap Fingerstick 2023 10:47 PM [facility] Blood BLOOD SPECIMEN / Unknown 09/13/2024 10:46 PM [employer] 09/13/2024 10:47 PM [employer] Lauri Girard MD LAB - POINT OF CARE ORDERABLES [facility] [address] [place] [address], [place] [phone] * (ABNORMAL) TROPONIN-I HIGH SENSITIVE (09/13/2024 1:22 PM [employer]) [facility] Troponin I High Sensitive 18(H) <=14 ng/L 09/13/2024 2:08 PM [employer] Blood BLOOD SPECIMEN / Unknown Venipuncture / Unknown 09/13/2024 1:22 PM [employer] 09/13/2024 1:33 PM [employer] Lauri Girard MD LAB - CHEMISTRY KAITLYNN SWARTZ Performing Organization Address City/[facility]/ZIP Co de Phone Number [facility] [address] [place] [address], [place] [phone] * (ABNORMAL) TROPONIN-I HIGH SENSITIVE REFLEX 1HOUR (09/13/2024 8:49 AM [employer]) Troponin I High Sensitive 20(H) <=14 ng/L 09/13/2024 9:34 AM [employer] [facility] Delta Troponin I HS 09/13/2024 9:34 AM [facility] Comment:Delta value intentio turner not calculated. Baseline to 1 hour specimen collection interval exceeded. Blood BLOOD SPECIMEN / Unknown Venipuncture / Unknown 09/13/2024 8:49 AM [employer] 09/13/2024 8:55 AM [employer] Nacho Clay DO LAB - CHEMISTRY KAITLYNN SWARTZ Performing Organization Address [facility]/ZIP Co de Phone Number [facility] [address] [place] [address], [place] [phone] * BLOOD TYPE VERIFICATION (09/13/2024 8:49 AM [employer]) ABO Rh A POS 09/13/2024 9:4 9 AM [employer] Blood Bank BLOOD SPECIMEN / Unknown Venipuncture / Unknown 09/13/2024 8:49 AM [employer] 09/13/2024 9:05 AM [employer] Nacho Clay DO LAB - BLOOD BANK [place]AL Performing Organization Address City/[facility]/ZIP Co de Phone Number [facility] [address] [place] [address], [place] [phone] * (ABNORMAL) URINALYSIS W/MICROSCOPIC NO CULTURE (09/13/2024 8:45 AM [employer]) Color UA Rowena(A) Straw, Yellow 09/13/2024 9:13 AM [facility] Clarity UA Cloudy(A) Clear 09/13/2024 9:13 AM [facility] Specific [place] UA 1.034(H) 1.005 - 1.030 09/13/2024 9:13 [...] Unknown Collection / Unknown 09/13/2024 8:45 AM [employer] 09/13/2024 8:55 AM [employer] Narrative [facility] - 09/13/2024 9:13 AM [employer] Nacho Clay DO LAB - URINALYSIS ORD ERABLES Performing Organization Address City/[facility]/ZIP Co de Phone Number [facility] [address] [place] [address], [facility] [phone] * (ABNORMAL) HEMOGLOBIN A1C (09/13/2024 6:00 AM [employer]) Hemoglobin A1c 6.8(H) <=5.6 % 09/14/2024 9:53 [...] to evaluate metabolic control in patients. Reference: [place] [employer], Standards of Care in Diabetes -2020 In patients 70 years and older consider HbA1c target range of 7.0-7.5% (Reference: Neel Galvez et al. JAMDA. 2012) The Sebia assay for the measurement of HbA1c is a National Glycohemoglobin Standardization Program (NGSP) certified method. Blood BLOOD SPECIMEN / Unknown Venipuncture / Unknown 09/13/2024 6:00 AM [employer] 09/13/2024 8:53 PM [employer] Kareem Bagley MD LAB - CHEMISTRY KAITLYNN SWARTZ Performing Organization Address City/[facility]/ZIP Co de Phone Number [facility] [address] [place] [address], [place] [phone] * (ABNORMAL) LIPID PROFILE (09/13/2024 6:00 AM [employer]) Cholesterol Total 170 <200 mg/dL 09/13/2024 6:49 [...] Unknown Venipuncture / Unknown 09/13/2024 6:00 AM [employer] 09/13/2024 6:27 AM [employer] Nacho Clay DO LAB - CHEMISTRY KAITLYNN SWARTZ [address] [address], [place] [phone] * TROPONIN-I HIGH SENSITIVE BASELINE + 1HR (09/12/2024 7:10 PM [employer]) Pathologist [facility] Troponin I High Sensitive 12 <=14 ng/L 09/12/2024 7:49 PM [employer] Blood BLOOD SPECIMEN / Unknown Venipuncture / Unknown 09/12/2024 7:10 PM [employer] 09/12/2024 7:30 PM [employer] Nacho Clay DO LAB - CHEMISTRY KAITLYNN SWARTZ [address] [address], [place] [phone] * (ABNORMAL) TSH REFLEX FREE T4 (09/12/2024 7:10 PM [employer]) TSH 24.558(H) 0.350 - 4.940 uIU/mL 09/12/2024 9:14 PM [employer] [facility] Blood BLOOD SPECIMEN / Unknown Venipuncture / Unknown 09/12/2024 7:10 PM [employer] 09/12/2024 7:30 PM [employer] Lauri Girard MD LAB - CHEMISTRY KAITLYNN SWARTZ [address] [address], [place] [phone] * PHOSPHORUS BLOOD (09/12/2024 7:10 PM [employer]) Phosphorus 3.2 2.9 - 5.1 mg/dL 09/12/2024 7:50 PM [employer] Blood BLOOD SPECIMEN / Unknown Venipuncture / Unknown 09/12/2024 7:10 PM [employer] 09/12/2024 7:30 PM [employer] Lauri Girard MD LAB - CHEMISTRY KAITLYNN SWARTZ Performing Organization Address City/[facility]/ZIP Co de Phone Number [address] [address], [place] [phone] * MAGNESIUM BLOOD (09/12/2024 7:10 PM [employer]) Magnesium 1.8 1.6 - 2.6 mg/dL 09/12/2024 7:50 PM [employer] [facility] Blood BLOOD SPECIMEN / Unknown Venipuncture / Unknown 09/12/2024 7:10 PM [employer] 09/12/2024 7:30 PM [employer] Lauri Girard MD LAB - CHEMISTRY KAITLYNN SWARTZ Performing Organization Address City/[facility]/ZIP Co de Phone Number [address] [address], [place] [phone] * T4 FREE (09/12/2024 7:10 PM [employer]) T4 Free 0.7 0.7 - 1.5 ng/dL 09/12/2024 9:47 PM [employer] [facility] Blood BLOOD SPECIMEN / Unknown Venipuncture / Unknown 09/12/2024 7:10 PM [employer] 09/12/2024 7:30 PM [employer] Lauri Girard MD LAB - CHEMISTRY KAITLYNN CHILANGOTAMIE Performing Organization Address City/[facility]/ZIP Co de Phone Number [facility] [address] [place] [address], [place] [phone] * EKG 12-LEAD (09/12/2024 7:04 PM [employer]) Ventricular Rate 97 BPM [facility] MUSE Atrial Rate 97 BPM [facility] MUSE P-R Interval 186 ms [facility] MUSE QRS Duration ms 106 ms [facility] MUSE Q-T Interval ms 388 ms [facility] MUSE QTC Calculation (Bezet) 492 ms [facility] MUSE Calculated P [place] 60 degrees SL MUSE Calculated R [place] -29 degrees SL MUSE Calculated T [place] 94 degrees SL MUSE Interpretation EKG NORMAL SINUS RHYTHM MINIMAL VOLTAGE CRITERIA FOR LVH, MAY BE NORMAL VARIANT ( [place] product ) ANTEROSEPTAL INFARCT , AGE UNDETERMINED ABNORMAL ECG NO PREVIOUS ECGS AVAILABLE Confirmed by JEREMIAH CANNON MD ([id number]) on 09/15/2024 2:33:28 PM [facility] MUSE 09/12/2024 7:04 PM [employer] 09/15/2024 2:33 PM [employer] Nacho Clay DO ECG ORDERABLES Performing Organization Address [facility] Co de Phone Number [facility] MUSE * XR Chest 1Vw Portable (09/12/2024 6:54 PM [employer]) Anatomical Region Laterality Modality Chest Digital Radiogra phy 09/12/2024 7:53 PM [employer] Narrative 09/12/2024 8:45 PM [employer] PROCEDURE: XR CHEST 1VW PORTABLE, DATE/TIME OF EXAM: 09/12/2024 7:05 PM, LOCATION [facility] INDICATION: R47.01: Aphasia R40.4: Transient alteration [...] Report dictated by Maikel Marr MD (residential aide). Klarissa Verma MD have personally reviewed and interpreted this examination/study. > Interpreting Provider: Klarissa Munoz MD on 09/12/2024 8:45 PM Procedure Note Klarissa Munoz MD - 09/12/2024 PROCEDURE: XR CHEST 1VW PORTABLE, DATE/TIME OF EXAM: 09/12/2024 7:05PM, LOCATION [facility] INDICATION: R47.01: Aphasia R40.4: Transient alteration [...] Report dictated by Maikel Marr MD (residential aide). Klarissa Verma MD have personally reviewed and interpreted this examination/study. > Interpreting Provider: Klarissa Munoz MD on 09/12/2024 8:45 PM Nacho Clay DO DIAGNOSTIC IMAGING O RDERABLES * CT ANGIO BRAIN NECK STROKE (09/12/2024 6:42 PM [employer]) Anatomical Region Laterality Modality Head Computed Tomogra phy 09/12/2024 6:57 PM [employer] Impressions 09/12/2024 7:19 PM [employer] IMPRESSION: 1. No acute intracranial hemorrhage. 2. No large arterial occlusions or significant stenoses identified in the head or neck. Viz.AI was used for large vessel occlusion detection. > Interpreting Provider: Milagros Flores MD on 09/12/2024 7:19 PM Narrative 09/12/2024 7:19 PM [employer] PROCEDURE: CT ANGIO BRAIN NECK STROKE, DATE/TIME OF EXAM: 09/12/2024 6:43 PM, LOCATION [facility] INDICATION: Code Stroke ADDITIONAL CLINICAL INFORMATION: [...] STROKE, DATE/TIME OF EXAM: :43 PM, LOCATION [facility] INDICATION: Code Stroke ADDITIONAL CLINICAL INFORMATION: [...] Nacho Clay DO CT ORDERABLES * PT-INR [facility] (09/12/2024 6:39 PM [employer]) Pathologist [facility] PT 12.9 12.1 - 14.8 Seconds 09/12/2024 7:05 PM [employer] [facility] INR 1.0 See Comment 09/12/2024 7:05 PM [facility] Comment:The suggested therap eutic range for standard coumadin (warfarin) therapy is an INR of 2.0-3.0. For high-risk patients (Mechanical Mitral Valve Prosthesis, etc.), the suggested prophylactic therapeutic range is an INR of 2.5-3.5. Blood BLOOD SPECIMEN / Unknown Venipuncture / Unknown 09/12/2024 6:39 PM [employer] 09/12/2024 6:45 PM [employer] Nacho Clay DO LAB - COAGULATION OR DERABLES [facility] [address] [place] [address], Variable [phone] * TYPE + SCREEN PANEL (09/12/2024 6:39 PM [employer]) [facility] Antibody Screen NEG 7:42 PM [employer] [facility] ABO Rh A POS 09/12/2024 7:42 PM [employer] [facility] Blood Bank BLOOD SPECIMEN / Unknown Venipuncture / Unknown 09/12/2024 6:39 PM [employer] 09/12/2024 6:50 PM [employer] Nacho Clay DO LAB - BLOOD BANK ORD ERABLES [facility] [address] [place] [address], [place] [phone] * CBC W AUTO DIFFERENTIAL (09/12/2024 6:39 PM [employer]) [facility] WBC 6.5 4.0 - 10.7 [...] Unknown Venipuncture / Unknown 09/12/2024 6:39 PM [employer] 09/12/2024 6:45 PM [employer] Nacho Clay DO LAB - HEMATOLOGY ORD ERABLES [facility] [address] [place] [address], [facility] [phone] * (ABNORMAL) COMPREHENSIVE METABOLIC PANEL (09/12/2024 6:39 PM [employer]) BUN 20 7 - 26 mg/dL 09/12/2024 [...] Unknown Venipuncture / Unknown 09/12/2024 6:39 PM [employer] 09/12/2024 6:45 PM [employer] Nacho Clay DO LAB - CHEMISTRY KAITLYNN SWARTZ [facility] Organization Address City/State/[facility] Co de Phone Number [facility] [address] [place] [phone] [phone] * CREATININE - POCT INTERFACED (09/12/2024 6:36 PM [employer]) Creatinine POCT 0.54 0.30 - 1.30 mg/dL 09/12/2024 6:37 PM [facility] eGFR >90 >=90 mL/min/1.7 3 m2 09/12/2024 6:37 PM [facility] Blood BLOOD SPECIMEN / Unknown 09/12/2024 6:36 PM [employer] 09/12/2024 6:37 PM [employer] Nacho Clay DO LAB - POINT OF CARE ORDERABLES Performing Organization Address City/[facility]/ZIP Co de Phone Number [address] [address], [facility] [phone] * INR WHOLE BLOOD - POINT OF CARE (IP) STROKE (09/12/2024 6:33 PM [employer]) INR 0.9 0.9 - 1.2 09/12/2024 6:36 PM [employer] Device [id number] 09/12/2024 6:36 PM [employer] [facility] [employer] ID [id number] 09/12/2024 6:36 PM [employer] [facility] Blood BLOOD SPECIMEN / Unknown 09/12/2024 6:33 PM [employer] 09/12/2024 6:36 PM [employer] Nacho Clay DO LAB - POINT OF CARE ORDERABLES Performing Organization Address [facility]/ZIP Co de Phone Number [address] [address], [facility] [phone] * CT BRAIN - Stroke (09/12/2024 6:28 PM [employer]) Anatomical Region Laterality Modality Head Computed Tomogra phy 09/12/2024 6:30 PM [employer] Impressions 09/12/2024 6:50 PM [employer] IMPRESSION: 1.No acute intracranial hemorrhage. 2.Please note [...] 09/12/2024 6:50 PM Narrative 09/12/2024 6:50 PM [employer] PROCEDURE: CT BRAIN STROKE, DATE/TIME OF EXAM: 09/12/2024 6:29 PM, LOCATION [facility] INDICATION: Code Stroke EXAMINATION: Computed tomography [...] DATE/TIME OF EXAM: 09/12/2024 6:29 PM, LOCATION [facility] INDICATION: Code Stroke EXAMINATION: Computed tomography [...] 6:45 PM 09/14/2024 1:52 PM Care Teams Subeditor Relationship Specialty Start Date End Date Brianne Ko APRN-CNP [phone] [id number] PCP - General Nurse Practitioner Family 09/12/24
[2024-11-26 18:40] LABS: Erythrocyte Sedimentation Rate 65 mm/hr (0-20)
[2024-11-26] MEDS: POTASSIUM CHLORIDE 20 MEQ ER TABLET 40 MEQ PO (18:57)
[2024-11-26 19:06] LABS: Magnesium 1.8 mg/dL (1.6-2.3)
[2024-11-26 19:31] LABS: Hemoglobin A1C 7.2 % (<5.7)
[2024-11-26] MEDS: VANCOMYCIN 1,500 MG/NS 500 ML 1,500 MG/500 ML BAG 250 MG IVPB (20:16)
[2024-11-26 21:24] VITALS: BP 117/70; PULSE 88; RESP 15; O2SAT 97
--- NOTE | 2024-11-26 21:33 | ECG_ITS ---
Test Date: 2024-11-26 22:16:01 Measurements Intervals [place] Rate: 91 P: 43 OR: 196 QRS: -27 QRSD: 105 T: 97 QT: 379 QTc: 467 Interpretive Statements SINUS RHYTHM WITH OCCASIONAL VENTRICULAR PREMATURE COMPLEXES LEFT VENTRICULAR HYPERTROPHY AND ST-T CHANGE Electronically Signed On 11-28-2024 13:53:58 CDT by Martín Sanford D.O
[2024-11-26 22:43] VITALS: BP 164/78; PULSE 91; RESP 15; O2SAT 97
[2024-11-26 23:30] LABS: MRSA (PCR) NOT DETECTED (NOT DETECTE)
[2024-11-26 23:51] VITALS: BMI 37.6
--- NOTE | 2024-11-26 23:59 | ADMGEN ---
This patient, Wendy Rose, was admitted to 2 Medical Room 254-01. Patient/family oriented to hospital policies and general routines including ID bracelet, bed and alarms, visiting hours, pain management, procedures, bathroom and other care routines, personal items, smoking policy, room service/diet, and visiting hours. Information on how to activate the Rapid Response Team has been discussed. Patient/Family are encouraged to report perceived risks to care and to ask questions if they do not understand what they are told or what they should do.
--- NOTE | 2024-11-27 | ECHO_ITS ---
Patient Info Name: Wendy Rose Age: 84 years : 1940 Gender: Female Ht: 60 in Wt: 192 lbs BSA: 1.97 m2 HR: 93 bpm BP: 150 / 74 mmHg Heart Rhythm: Sinus Arrhythmia Technical Quality: Fair Exam Date: 11/27/2024 12:17 PM Exam Location: Echo Lab Patient Status: Inpatient Admit Date: 11/26/2024 Staff Ordering Physician: Alonzo Cartagena MD Sales And Marketing Executive: Bonita Stewart RDCS Attending Provider: Ilsa Serra DO Exam Type: CA echo doppler color flow Study Info Indications - CHF Complete two-dimensional, color flow and Doppler transthoracic echocardiogram is performed. Summary 1. Complete two-dimensional, color flow and Doppler transthoracic echocardiogram is performed. Recommendations * Normal LV size, moderate LVH, normal LV systolic function, ejection fraction about 55-60%; diastolic dysfunction is present with elevated left heart pressures. Moderate left atrial enlargement. Dense mitral annular calcification, mild mitral stenosis, trivial MR. Aortic valve is not well visualized, appears mildly calcified, no hemodynamically significant stenosis. Mild aortic regurgitation. Trace TR, RVSP 28 mmHg. Left Ventricle Left ventricular chamber dimension is normal. Left ventricular systolic function is normal, estimated at 55-60%. There is moderately increased left ventricular wall thickness. The left ventricular diastolic function is grade I diastolic dysfunction. E/e' 29.8 is abnormal. Right Ventricle Right ventricular chamber dimension is normal. Right ventricular systolic function is normal. Left Atria Left atrial chamber dimension is moderately enlarged. Right Atria Right atrial chamber dimension is normal. Aortic Valve The aortic valve is not well visualized. There is no aortic valve stenosis. There is mild aortic valve regurgitation. Pulmonic Valve The pulmonic valve is not well visualized. Mitral Valve There is mild mitral valve stenosis. There is trace mitral valve regurgitation. The mitral valve annulus is moderately calcified. Tricuspid Valve The tricuspid valve leaflets are normal. There is trace tricuspid valve regurgitation. Pericardium/Pleural The pericardium appears normal. Aorta The aortic root size at the sinus of Valsalva is not well visualized. Left Ventricular Outflow Tract Name Value Normal LVOT 2D LVOT Diameter 2.0 cm LVOT Doppler LVOT Peak Gradient 3 mmHg LVOT Mean Gradient 2 mmHg LVOT VTI 26 cm LVOT VTI/AV VTI Ratio 0.8 LVOT Stroke Volume 77 ml LVOT CO 10.7 l/min LVOT CI 5.5 l/min/m2 Pulmonic Valve Name Value Normal RVOT Doppler RVOT Peak Gradient 3 mmHg PV Doppler PV Peak Gradient 4 mmHg Mitral Valve Name Value Normal MV Doppler MV Decel Swain 682 cm/s2 MV PHT 64 ms MV Area (PHT) 3.5 cm2 4.0-5.0 MV Diastolic Function MV E Peak Velocity 150 cm/s MV A Peak Velocity 162 cm/s MV E/A 0.9 MV Decel Time 220 ms MV Annular TDI MV E/e' (Septal) 29.8 <=8.0 MV E/e' (Lateral) 29.8 <=8.0 MV E/e' (Average) 29.8 Tricuspid Valve Name Value Normal TV Regurgitation Doppler TR Peak Velocity 224 cm/s TR Peak Gradient 18 mmHg Estimated PAP/RSVP RA Pressure 8 mmHg <=5 PA Systolic Pressure 28 mmHg <36 RV Systolic Pressure 28 mmHg <36 Aortic Valve Name Value Normal AV Doppler AV Peak Velocity 139 cm/s AV Peak Gradient 5 mmHg AV Mean Gradient 3 mmHg AV VTI 33 cm AV Area (Cont Eq VTI) 2.4 cm2 >=3.0 AV Area (Cont Eq Juan) 2.6 cm2 AV Regurgitation 2D LVOT Area 3.0 cm2 Ventricles Name Value Normal LV Dimensions 2D/MM IVS Diastolic Thickness (2D) 1.3 cm 0.6-1.0 LVID Diastole (2D) 4.4 cm 3.8-5.2 LVIW Diastolic Thickness (2D) 1.3 cm 0.6-0.9 LVID Systole (2D) 3.0 cm 2.2-3.5 LVOT Diameter 2.0 cm LV Mass (2D Cubed) 216.81 g 67.00-162.00 LV Mass Index (2D Cubed) 110 g/m2 43-95 Relative Wall Thickness (2D) 0.58 LV Fractional Shortening/Ejection Fraction 2D/MM LV Fractional Shortening (2D) 32 % 27-45 LV EF (2D Teicholz) 60 % 54-74 LV Diastolic Volume (4C MOD) 110 ml LV EF (4C MOD) 66 % LV Diastolic Volume (2C MOD) 96 ml LV EF (2C MOD) 50 % LV Diastolic Volume (BP MOD) 103 ml 46-106 LV Diastolic Volume Index (BP MOD) 52 ml/m2 29-61 LV Systolic Volume (BP MOD) 43 ml 14-42 LV Systolic Volume Index (BP MOD) 22 ml/m2 8-24 LV EF (BP MOD) 58 % 54-74 LV Diastolic Length (4C) 7.3 cm LV Systolic Length (4C) 6.2 cm LV Stroke Volume (4C MOD) 72 ml Atria Name Value Normal LA Dimensions LA Volume (4C A-L) 79 ml LA Volume (BP A-L) 66 ml RA Dimensions RA Area (4C) 14.3 cm2 <=18.0 Report Signatures
[2024-11-27 00:03] VITALS: BP 175/85; PULSE 87; RESP 20; TEMP 36.5; O2SAT 95
[2024-11-27 01:36] VITALS: BP 154/80; PULSE 86
[2024-11-27 03:29] VITALS: BP 150/74; PULSE 88; RESP 20; TEMP 36.6; O2SAT 95
[2024-11-27 05:51] LABS: Basophils Percent Auto 0.2 % (0.2-1.2); Eosinophils Absolute Auto 0.1 K/mm3 (0-0.3); Eosinophils Percent Auto 1.2 % (0-4.4); Immature Granulocyte Absolute 0.05 K/mm3 (0.00-0.031); Immature Granulocyte Percent A 0.6 % (0-0.5); Lymphocytes Absolute Auto 1.04 K/mm3 (0.9-3.2); Lymphocytes Percent Auto 11.5 % (18.3-44.2); Mean Corpuscular HGB Conc 31.4 g/dl (32-36); Mean Corpuscular Hemoglobin 29.8 pg (26-34); Mean Corpuscular Volume 94.9 fl (80-100); Mean Platelet Volume 10.2 fl (7.4-10.4); Monocytes Absolute Auto 0.8 K/mm3 (0.1-0.6); Monocytes Percent Auto 8.4 % (2.6-8.5); Neutrophils Absolute Auto 7.1 K/mm3 (1.3-6.7); Neutrophils Percent Auto 78.1 % (45.5-73.1); Platelet Count Result 155 k/mm3 (150-375); Red Blood Count 3.69 M/mm3 (4.2-5.4); Red Cell Distribution Width 13.9 % (11.5-14.5); White Blood Count 9.1 K/mm3 (4.5-10.0)
[2024-11-27 05:59] LABS: Anion Gap 7 mmol/L (4-12); Blood Urea Nitrogen 14 mg/dL (7-17); Calcium 8.6 mg/dL (8.4-10.2); Carbon Dioxide 30 mmol/L (22-30); Chloride 103 mmol/L (98-107); Estimated CRCL calculation 44 ml/min; Estimated Glomerular Filt Rate > 60; Glucose 144 mg/dL (65-110); Potassium 3.9 mmol/L (3.4-5.0); Sodium 140 mmol/L (137-145)
--- NOTE | 2024-11-27 07:57 | P.HP_ITS ---
H&P: HPI History of Present Illness Date/Time: 11/27/24 07:57 Chief Complaint: R leg cellulitis Narrative: 84 year old female with history of cellulitis,Hx PE, A.Fib, DM type 2, HTN ,HLD presents to the ER for right lower extremity cellulitis. She is on Cephalexin currently without relief. Sent to the ER by her PCP for further management. Pertinent Labs: WBC 9.1, HgB 11, HCT 35, PLT 155, Na 140,K 3.9,BUN 14, Cr 0.80,GFR >60, Glucose 144,HbA1C 7.2,BNP 958 Nasal MRSA: Negative Lower Ext CT:Edema in the subcutaneous tissues with 2 collections seen above the antecubital anterolaterally. Further evaluation and Follow-up advised. Lower ext US Rt:Negative right lower extremity venous US. No deep vein thrombosis Record review indicates patient has lower extremity swelling for long period time and also had procedure to repair pelvic organ prolapse in 2021 and 2 days later developed blisters on the leg. During the examination patient reports she has this right side cellulitis at least 3 times.Patient also rash under breast ,advised to apply nystatin cream. Review of Systems Review of Systems: CONSTITUTIONAL: Denies fever SKIN: Reports redness and swelling All systems reviewed & are unremarkable except as noted in HPI and below PMFSH Past Medical History Medical History History of cellulitis w/o MRSA History of pulmonary embolism A-fib Diabetes type 2, controlled High blood pressure High cholesterol Surgical History Surgical History History of left heart catheterization Family History Family History Other Acute myocardial infarction Acute rheumatic arthritis Cancer Depression Hypertension Social History Social History Social History: Daughter Kathy Smoking status: Never smoker Alcohol intake: never Substance use: never Substance use type: does not use Do You Feel Safe in your Home?: Yes Lack of Transportation: No Lack of Food: Never True Current Housing: I Have Housing Concerned About Future Housing: No Difficulty Paying Gas/Electric Bills: No Difficulty Paying for Meds: No Currently Unemployed: No Education: Grade School Difficulty w/ Childcare or Family Care: No Living arrangements: with family Additional living arrangements comments: DAUGHTER Occupation/Education: retired Gender identity (if verbalized by the patient): Female Spiritual care concerns: No Meds Home Medications and Allergies Home Medications ?Medication ?Instructions ?Recorded ?Confirmed ?Type levothyroxine 100 mcg tablet 100 mcg PO QAM 01/02/22 11/27/24 History (Euthyrox) metoprolol tartrate 25 mg tablet 25 mg PO DAILY 01/02/22 11/27/24 History rivaroxaban 20 mg tablet (Xarelto) 20 mg PO DAILY 01/02/22 11/27/24 History lisinopril 20 1 tablet PO QAM 02/08/22 11/27/24 History mg-hydrochlorothiazide 25 mg tablet docusate sodium 100 mg capsule 100 mg PO BID #60 caps 02/18/22 11/27/24 Rx (Colace) tramadol 50 mg tablet 50 mg PO Q6H PRN pain #20 tabs 02/18/22 11/27/24 Rx furosemide 20 mg tablet (Lasix) 20 mg PO DAILY 3 days #3 tabs 02/25/22 11/27/24 Rx acetaminophen 500 mg capsule 1,000 mg (2 x 500 mg) PO Q6H PRN 10/26/24 11/27/24 Rx pain #30 caps losartan 25 mg tablet 25 mg PO DAILY 11/14/24 11/27/24 History rosuvastatin 40 mg tablet 40 mg PO DAILY 11/14/24 11/27/24 History Allergies Allergy/AdvReac Type Severity Reaction Status Date / Time codeine AdvReac Intermediate NAUSEA Verified 11/26/24 11:52 Vital Signs Vital Signs - 24 hr 11/26/24 11:58 11/26/24 16:47 11/26/24 17:02 Temperature 98.4 F Pulse Rate 70 91 87 Respiratory Rate 16 20 21 H Blood Pressure 176/93 H 192/95 H 178/87 H Pulse Oximetry 95 98 97 Oxygen Delivery Room Air 11/26/24 17:17 11/26/24 21:24 11/26/24 22:43 Temperature Pulse Rate 92 88 91 Respiratory Rate 22 H 15 15 Blood Pressure 169/93 H 117/70 164/78 H Pulse Oximetry 96 97 97 Oxygen Delivery 11/27/24 00:03 11/27/24 01:36 11/27/24 03:29 Temperature 97.7 F 97.8 F Pulse Rate 87 86 88 Respiratory Rate 20 20 Blood Pressure 175/85 H 154/80 H 150/74 H Pulse Oximetry 95 95 Oxygen Delivery Exam Narrative: GENERAL: Elderly, well-nourished, and in no acute distress. HEAD: Normocephalic, atraumatic. EYES: EOMI. CHEST: Clear to auscultation. No respiratory distress. No wheezes rales or rhonchi HEART: Regular rate and rhythm. No murmur heard. Normal peripheral pulses. EXTREMITIES: Normal range of motion. Edema and erythema to the right lower leg with a small blister to the right medial ankle. Normal DP pulse. Normal sensation SKIN: Warm, dry, no rash. NEURO: No focal deficits. Alert and oriented x3. PSYCH: Normal mood and affect H&P: Results Labs Labs: Short CBC 11/26/24 11/27/24 Range/Units 17:33 05:43 WBC 9.1 9.1 (4.5-10.0) K/mm3 Hgb 11.3 L 11.0 L (12.0-15.0) g/dL Hct 35.7 L 35.0 L (37.0-47.0) % Plt Count 171 155 (150-375) k/mm3 [facility] 11/26/24 11/27/24 17:33 05:43 Sodium 141 140 Potassium 3.1 L 3.9 Chloride 103 103 Carbon Dioxide 32 H 30 BUN 19 H 14 D Creatinine 0.90 0.80 Glucose 167 H 144 H Calcium 8.8 8.6 Liver Function 11/26/24 Range/Units 17:33 Total Bilirubin 1.0 (0.2-1.3) mg/dL AST 18 (14-36) U/L ALT 18 (6-35) U/L Alkaline Phosphatase 77 (38-126) U/L Albumin 3.9 (3.5-5.1) g/dL Assessment and Plan Assessment and plan (1) Elevated hemoglobin A1c: Code(s): R73.09 - Other abnormal glucose Status: Acute (2) Cellulitis of right lower extremity: Code(s): L03.115 - Cellulitis of right lower limb Status: Acute (3) Acute arthritis: Code(s): M19.90 - Unspecified osteoarthritis, unspecified site Status: Acute Plan #Rt Leg Cellulitis Nasal MRSA: Negative Lower Ext CT:Edema in the subcutaneous tissues with 2 collections seen above the antecubital anterolaterally. Further evaluation and Follow-up advised. Lower ext US Rt:Negative right lower extremity venous US. No deep vein thrombosis Started Cefepime and Metronidazole Pain control Based on cut foot culture, c/w ceftriaxone Order wound care #Left Knee Pain Possible OA Recommend Tylenol Order Knee Xray PT/OT #A.Fib Cont Rivaroxaban 20mg PO QD Patient denies taking Metoprolol tart 25 mg PO QD #CHF Cont Lasix 20 mg PO QD Cont Losartan 25 mg PO QD #DM Order Low dose SSI Hypoglycemic protocol DVT Prophylaxis: Cont Xarelto Hospitalist [facility] Advance Care Plan I have confirmed that the patient's Advanced Care Plan is present, code status is documented, or surrogate decision maker is listed in patient medical record.: Yes Medication Reconciliation I have utilized all available resources to obtain, update and review the patients current medications (includes all prescriptions, OTC, herbals, cannabis, and nutritional supplements).: Yes
[2024-11-27 08:35] LABS: Glucose Point of Care 150 mg/dl (65-105)
[2024-11-27] MEDS: LEVOTHYROXINE SODIUM 100 MCG TABLET PO (10:05)
[2024-11-27] MEDS: CEFEPIME 2 GM/NS 50 ML 2 GM/50 ML BAG IVPB (10:05)
[2024-11-27] MEDS: metroNIDAZOLE 500 MG/ISO 100ML 500 MG/100 ML BAG 100 MG IVPB ×3 (10:47→22:31)
[2024-11-27] MEDS: FUROSEMIDE 20 MG TABLET PO (11:43)
[2024-11-27] MEDS: LOSARTAN POTASSIUM 25 MG TABLET PO (11:43)
[2024-11-27] MEDS: DOCUSATE SODIUM 100 MG CAPSULE PO ×2 (11:43→17:24)
[2024-11-27 12:09] LABS: Glucose Point of Care 175 mg/dl (65-105)
[2024-11-27] MEDS: ACETAMINOPHEN 500 MG TABLET 1000 MG PO ×2 (12:42→19:53)
[2024-11-27 14:00] VITALS: BP 148/72; PULSE 82; RESP 19; TEMP 36.5; O2SAT 95
[2024-11-27 17:13] LABS: Glucose Point of Care 207 mg/dl (65-105)
[2024-11-27] MEDS: MICONAZOLE NITRATE 2% CREAM 30 GM TUBE 1 APPLIC TOPICAL ×2 (17:16→21:18)
[2024-11-27] MEDS: RIVAROXABAN 20 MG TABLET PO (17:24)
[2024-11-27] MEDS: INSULIN ASPART (*BKC) 100 UNITS/ML SUB-Q (17:29)
[2024-11-27] MEDS: ROSUVASTATIN 20 MG TABLET 40 MG PO (18:49)
[2024-11-27 19:41] LABS: Glucose Point of Care 211 mg/dl (65-105)
[2024-11-27 20:45] VITALS: BP 153/70; PULSE 89; RESP 18; TEMP 36.6; O2SAT 95
[2024-11-27] MEDS: CEFEPIME 1 GM/NS 50 ML 1 GM/50 ML BAG IVPB (21:18)
[2024-11-28] MEDS: ACETAMINOPHEN 500 MG TABLET 1000 MG PO ×3 (02:17→20:01)
[2024-11-28] MEDS: metroNIDAZOLE 500 MG/ISO 100ML 500 MG/100 ML BAG 100 MG IVPB ×3 (05:07→21:05)
[2024-11-28] MEDS: LEVOTHYROXINE SODIUM 100 MCG TABLET PO (05:08)
[2024-11-28 05:45] VITALS: BP 154/68; PULSE 78; RESP 18; TEMP 37; O2SAT 96
--- NOTE | 2024-11-28 06:48 | PM.IMPN ---
Progress Note: A&P Assessment and Plan (1) Cellulitis of right lower extremity: Code(s): L03.115 - Cellulitis of right lower limb Status: Acute Assessment and Plan: - Lower Ext CT:Edema in the subcutaneous tissues with 2 collections seen above the antecubital anterolaterally. Further evaluation and Follow-up advised. - Lower ext US Rt:Negative right lower extremity venous US. No deep vein thrombosis - Monitor serum electrolytes, CBC, cultures, WBC and temp curve - Consider a consult with wound care or general surgeon - Gentle IV fluids resuscitation - Started Cefepime and Metronidazole - Blood cultures negative - Pain control - Based on cut foot culture, c/w ceftriaxone - Order wound care (2) Left knee pain: Code(s): M25.562 - Pain in left knee Status: Acute Assessment and Plan: - Knee XR: No fracture or dislocation is seen. There is medial compartment narrowing, with severe medial compartment degenerative change and moderate to severe lateral and patellofemoral compartment degenerative change. Soft tissues are unremarkable. No joint effusion is seen. - Possible OA - Recommend Tylenol - Order Knee Xray - PT/OT (3) Elevated hemoglobin A1c: Code(s): R73.09 - Other abnormal glucose Status: Acute (4) History of atrial fibrillation: Code(s): Z86.79 - Personal history of other diseases of the circulatory system Status: Acute Assessment and Plan: - Cont Rivaroxaban 20mg PO QD - Patient denies taking Metoprolol tart 25 mg PO QD (5) Diabetes type 2, controlled: Code(s): E11.9 - Type 2 diabetes mellitus without complications Status: Acute Assessment and Plan: - Order Low dose SSI - Hypoglycemic protocol Plan DVT Prophylaxis: Cont Xarelto Time Spent With Patient Time: Subjective Date/time seen: 11/28/24 06:48 Interval history: Patient is an 84-year-old female with a PMHx of PE, A fib, Cellulitis, T2DM, HTN, HLD who presented to the ED for RLE cellulitis. She had originally been on Cephalexin without improvement of symptoms. She was subsequently sent to the ER by her PCP for further evaluation. 11/28/24 Patient is sitting comfortably at bedside upon examination. She endorses relief of right lower extremity pain but still endorses some left knee pain at rest. She states that at rest, her RLE does not feel painful, warm, but upon palpitation does still experience some generalized sharp pain from the mid lower leg down to the foot. Denies any nausea/vomiting, chest pain, shortness of breath. She is able to ambulate with assistance from the bed to the chair. Afebrile. Continuing antibiotics. Review of Systems Review of Systems: CONSTITUTIONAL: Denies fever SKIN: Reports redness and swelling, improving All systems reviewed & are unremarkable except as noted in HPI and below Exam Narrative: GENERAL: Elderly, well-nourished, and in no acute distress. HEAD: Normocephalic, atraumatic. EYES: EOMI. CHEST: Clear to auscultation. No respiratory distress. No wheezes rales or rhonchi HEART: Regular rate and rhythm. No murmur heard. Normal peripheral pulses. EXTREMITIES: Normal range of motion. Edema and erythema to the right lower leg with a small blister to the right medial ankle. Normal DP pulse. Normal sensation. Left knee pain at rest, worse with ambulation and palpitation. SKIN: Warm, dry, no rash. NEURO: No focal deficits. Alert and oriented x3. PSYCH: Normal mood and affect Objective Data Vital Signs Vital Signs: Vital Signs - 24 hr 11/27/24 08:00 11/27/24 14:00 11/27/24 20:45 Temperature 97.7 F 97.9 F Pulse Rate 82 89 Respiratory Rate 19 18 Blood Pressure 148/72 H 153/70 H Pulse Oximetry 95 95 Oxygen Delivery Room Air 11/28/24 05:45 Temperature 98.6 F Pulse Rate 78 Respiratory Rate 18 Blood Pressure 154/68 H Pulse Oximetry 96 Oxygen Delivery Intake/Output Intake/Output: Intake & Output 11/25/24 11/26/24 11/27/24 11/28/24 23:59 23:59 23:59 23:59 Intake Total 500 1170 200 Output Total 100 4 Balance 500 1070 196 Meds/Results Medications: Active Medications Generic Name Dose Route Start Last Admin Trade Name Freq PRN Reason Stop Dose Admin Acetaminophen 1,000 mg 11/27/24 08:06 11/28/24 02:17 Acetaminophen 500 Mg Tablet PO 1,000 mg Q6H PRN Administration Pain Rated 1-3 Dextrose 12.5 gm 11/26/24 21:33 Dextrose 50% 25 Gm/50 Ml Syringe IV PUSH PRN PRN Hypoglycemia Protocol Docusate Sodium 100 mg 11/27/24 09:00 11/27/24 17:24 Docusate Sodium 100 Mg Capsule PO 100 mg BID JESSICA Administration Furosemide 20 mg 11/27/24 09:00 11/27/24 11:43 Furosemide 20 Mg Tablet PO 20 mg DAILY JESSICA Administration Glucagon 1 mg 11/26/24 21:33 Glucagon For Inj 1 Mg Vial IM PRN PRN Hypoglycemia Protocol Glucose 15 gm 11/26/24 21:33 Glucose Oral Gel 15 Gm Of Glucse In 37.5 Gm Tube PO PRN PRN Hypoglycemia Protocol Dextrose 1,000 mls @ 100 mls/hr 11/26/24 21:33 Dextrose 5% 1,000 Ml IVPB PRN PRN Hypoglycemia Protocol Metronidazole 500 mg in 100 mls @ 100 mls/hr 11/27/24 09:00 11/28/24 05:07 Flagyl 500 Mg/Iso Soln 100 Ml IVPB 100 mls/hr Q8HR JESSICA Administration Cefepime HCl 1 gm in 50 mls @ 100 mls/hr 11/27/24 21:00 11/27/24 21:18 Maxipime 1 Gm/Ns 50 Ml IVPB 100 mls/hr Q12HR JESSICA Administration Insulin Aspart 2 - 5 units 11/27/24 08:00 11/27/24 17:29 Insulin Aspart (*Bkc) 100 Units/Ml SUB-Q Not Given TIDWM REPLACED BY [facility] Protocol Insulin Aspart 2 - 5 units 11/27/24 12:00 11/27/24 17:29 Insulin Aspart (*Bkc) 100 Units/Ml SUB-Q 2 units TIDWM JESSICA Administration Protocol Levothyroxine Sodium 100 mcg 11/27/24 08:20 11/28/24 05:08 Levothyroxine Sodium 100 Mcg Tablet PO 100 mcg DAILY@0630 JESSICA Administration Losartan Potassium 25 mg 11/27/24 09:00 11/27/24 11:43 Losartan Potassium 25 Mg Tablet PO 25 mg DAILY JESSICA Administration Miconazole Nitrate 1 applic 11/27/24 13:20 11/27/24 21:18 Miconazole Nitrate 2% Cream 30 Gm Tube TOPICAL 1 applic Q12HR JESSICA Administration Ondansetron HCl 4 mg 11/26/24 22:19 Ondansetron Inj 4 Mg/2 Ml Vial IV PUSH Q4H PRN Nausea Perflutren Lipid Microsphere 0 ml 11/27/24 08:12 Perflutren Lipid Microspheres 1.5 Ml Vial Diluted To 10 Ml Total Volume IV PUSH 11/30/24 08:12 ONCE PRN adequate visualization Protocol Polyethylene Glycol 17 gm 11/28/24 09:00 Polyethylene Glycol 3350 17 Gm Powd.Pack PO QAM JESSICA Rivaroxaban 20 mg 11/27/24 17:00 11/27/24 17:24 Rivaroxaban 20 Mg Tablet PO 20 mg DAILY@1700 JESSICA Administration Rosuvastatin Calcium 40 mg 11/27/24 18:00 11/27/24 18:49 Rosuvastatin 20 Mg Tablet PO 40 mg QPM JESSICA Administration Tramadol HCl 50 mg 11/27/24 08:06 Tramadol Hcl (*Crx) 50 Mg Tablet PO Q6H PRN Pain Rated 4-6 Radiology Results: ITS Impressions Venous Doppler Study 11/26/24 17:34 IMPRESSION: Negative right lower extremity venous US. No deep vein thrombosis. Lower Extremity CT 11/26/24 19:59 IMPRESSION: Edema in the subcutaneous tissues with 2 collections seen above the antecubital anterolaterally. Further evaluation and Follow-up advised. Knee X-Ray 11/27/24 13:40 Impression: Tricompartmental degenerative change, as detailed above. Labs Labs: Laboratory Results - last 24 hr 11/27/24 11/27/24 11/27/24 08:18 11:54 16:56 POC Capillary Glucose 150 H 175 H 207 H 11/27/24 19:30 POC Capillary Glucose 211 H Quality VTE Prophylaxis VTE prophylaxis: pharmacologic ordered Hospitalist [facility] Advance Care Plan I have confirmed that the patient's Advanced Care Plan is present, code status is documented, or surrogate decision maker is listed in patient medical record.: Yes Medication Reconciliation I have utilized all available resources to obtain, update and review the patients current medications (includes all prescriptions, OTC, herbals, cannabis, and nutritional supplements).: Yes
[2024-11-28 07:33] LABS: Basophils Percent Auto 0.3 % (0.2-1.2); Eosinophils Absolute Auto 0.1 K/mm3 (0-0.3); Eosinophils Percent Auto 1.6 % (0-4.4); Hematocrit 31.4 % (37.0-47.0); Immature Granulocyte Absolute 0.03 K/mm3 (0.00-0.031); Immature Granulocyte Percent A 0.3 % (0-0.5); Lymphocytes Absolute Auto 1.01 K/mm3 (0.9-3.2); Lymphocytes Percent Auto 11.6 % (18.3-44.2); Mean Corpuscular HGB Conc 31.8 g/dl (32-36); Mean Corpuscular Volume 94.3 fl (80-100); Monocytes Absolute Auto 0.7 K/mm3 (0.1-0.6); Neutrophils Absolute Auto 6.8 K/mm3 (1.3-6.7); Neutrophils Percent Auto 78.2 % (45.5-73.1); Platelet Count Result 140 k/mm3 (150-375); Red Blood Count 3.33 M/mm3 (4.2-5.4); Red Cell Distribution Width 13.8 % (11.5-14.5); White Blood Count 8.7 K/mm3 (4.5-10.0)
[2024-11-28 07:44] LABS: Anion Gap 5 mmol/L (4-12); Blood Urea Nitrogen 16 mg/dL (7-17); Calcium 8.4 mg/dL (8.4-10.2); Carbon Dioxide 30 mmol/L (22-30); Chloride 104 mmol/L (98-107); Estimated CRCL calculation 43 ml/min; Estimated Glomerular Filt Rate > 60; Glucose 151 mg/dL (65-110); Sodium 139 mmol/L (137-145)
[2024-11-28 08:10] LABS: Glucose Point of Care 142 mg/dl (65-105)
[2024-11-28] MEDS: FUROSEMIDE 20 MG TABLET PO (09:02)
[2024-11-28] MEDS: DOCUSATE SODIUM 100 MG CAPSULE PO ×2 (09:02→17:16)
[2024-11-28] MEDS: polyethylene glycoL 3350 17 GM POWD.PACK PO (09:03)
[2024-11-28] MEDS: LOSARTAN POTASSIUM 25 MG TABLET PO (09:05)
[2024-11-28] MEDS: CEFEPIME 1 GM/NS 50 ML 1 GM/50 ML BAG IVPB ×2 (09:06→20:01)
[2024-11-28] MEDS: MICONAZOLE NITRATE 2% CREAM 30 GM TUBE 1 APPLIC TOPICAL ×2 (09:06→20:08)
[2024-11-28 11:37] LABS: Glucose Point of Care 241 mg/dl (65-105)
[2024-11-28] MEDS: INSULIN ASPART (*BKC) 100 UNITS/ML SUB-Q (12:35)
[2024-11-28 14:00] VITALS: BP 155/60; PULSE 84; RESP 18; TEMP 36.3; O2SAT 96
[2024-11-28 16:59] LABS: Glucose Point of Care 190 mg/dl (65-105)
[2024-11-28] MEDS: ROSUVASTATIN 20 MG TABLET 40 MG PO (17:16)
[2024-11-28] MEDS: RIVAROXABAN 20 MG TABLET PO (17:16)
[2024-11-28 20:13] VITALS: BP 162/84; PULSE 83; RESP 18; TEMP 36.3; O2SAT 98
[2024-11-28 20:55] LABS: Glucose Point of Care 170 mg/dl (65-105)
[2024-11-29] MEDS: ACETAMINOPHEN 500 MG TABLET 1000 MG PO ×3 (03:39→23:02)
[2024-11-29 04:43] LABS: Basophils Percent Auto 0.4 % (0.2-1.2); Eosinophils Absolute Auto 0.2 K/mm3 (0-0.3); Eosinophils Percent Auto 2.1 % (0-4.4); Hematocrit 31.7 % (37.0-47.0); Hemoglobin 10.1 g/dL (12.0-15.0); Immature Granulocyte Absolute 0.03 K/mm3 (0.00-0.031); Immature Granulocyte Percent A 0.4 % (0-0.5); Lymphocytes Absolute Auto 1.13 K/mm3 (0.9-3.2); Lymphocytes Percent Auto 14.7 % (18.3-44.2); Mean Corpuscular HGB Conc 31.9 g/dl (32-36); Mean Corpuscular Hemoglobin 29.6 pg (26-34); Mean Platelet Volume 10.5 fl (7.4-10.4); Monocytes Absolute Auto 0.6 K/mm3 (0.1-0.6); Monocytes Percent Auto 8.3 % (2.6-8.5); Neutrophils Absolute Auto 5.7 K/mm3 (1.3-6.7); Neutrophils Percent Auto 74.1 % (45.5-73.1); Platelet Count Result 176 k/mm3 (150-375); Red Blood Count 3.41 M/mm3 (4.2-5.4); White Blood Count 7.7 K/mm3 (4.5-10.0)
[2024-11-29 04:55] LABS: Anion Gap 7 mmol/L (4-12); Blood Urea Nitrogen 16 mg/dL (7-17); Calcium 8.4 mg/dL (8.4-10.2); Carbon Dioxide 28 mmol/L (22-30); Chloride 104 mmol/L (98-107); Estimated CRCL calculation 42 ml/min; Estimated Glomerular Filt Rate > 60; Glucose 132 mg/dL (65-110); Potassium 3.5 mmol/L (3.4-5.0); Sodium 139 mmol/L (137-145)
[2024-11-29 06:00] VITALS: BP 156/45; PULSE 83; RESP 18; TEMP 37.3; O2SAT 97
[2024-11-29] MEDS: LEVOTHYROXINE SODIUM 100 MCG TABLET PO (06:19)
[2024-11-29] MEDS: metroNIDAZOLE 500 MG/ISO 100ML 500 MG/100 ML BAG 100 MG IVPB (06:21)
[2024-11-29 08:02] LABS: Glucose Point of Care 138 mg/dl (65-105)
[2024-11-29] MEDS: FUROSEMIDE 20 MG TABLET PO (08:13)
[2024-11-29] MEDS: CEFEPIME 1 GM/NS 50 ML 1 GM/50 ML BAG IVPB (08:13)
[2024-11-29] MEDS: DOCUSATE SODIUM 100 MG CAPSULE PO ×2 (08:13→17:25)
[2024-11-29] MEDS: LOSARTAN POTASSIUM 25 MG TABLET PO (08:13)
[2024-11-29] MEDS: polyethylene glycoL 3350 17 GM POWD.PACK PO (08:13)
[2024-11-29] MEDS: MICONAZOLE NITRATE 2% CREAM 30 GM TUBE 1 APPLIC TOPICAL ×2 (08:14→20:53)
--- NOTE | 2024-11-29 08:44 | P.PNIM_ITS ---
Progress Note: A&P Assessment and Plan (1) Cellulitis of right lower extremity: Code(s): L03.115 - Cellulitis of right lower limb Status: Acute Assessment and Plan: - Lower Ext CT:Edema in the subcutaneous tissues with 2 collections seen above the antecubital anterolaterally. Further evaluation and Follow-up advised. - Lower ext US Rt:Negative right lower extremity venous US. No deep vein thrombosis - Monitor serum electrolytes, CBC, cultures, WBC and temp curve - Consider a consult with wound care or general surgeon - Gentle IV fluids resuscitation - Started Cefepime and Metronidazole - Blood cultures negative - Order wound care - Plan to switch to PO Augmentin starting tonight (11/29) with possible discharge tomorrow (2) Left knee pain: Code(s): M25.562 - Pain in left knee Status: Acute Assessment and Plan: - Knee XR: No fracture or dislocation is seen. There is medial compartment narrowing, with severe medial compartment degenerative change and moderate to severe lateral and patellofemoral compartment degenerative change. Soft tissues are unremarkable. No joint effusion is seen. - Possible OA - Recommend Tylenol - Order Knee Xray - PT/OT (3) Elevated hemoglobin A1c: Code(s): R73.09 - Other abnormal glucose Status: Acute (4) History of atrial fibrillation: Code(s): Z86.79 - Personal history of other diseases of the circulatory system Status: Acute Assessment and Plan: - Cont Rivaroxaban 20mg PO QD - Patient denies taking Metoprolol tart 25 mg PO QD (5) Diabetes type 2, controlled: Code(s): E11.9 - Type 2 diabetes mellitus without complications Status: Acute Assessment and Plan: - Order Low dose SSI - Hypoglycemic protocol Plan DVT Prophylaxis: Cont Xarelto Subjective Date/time seen: 11/29/24 08:44 Interval history: Patient is an 84-year-old female with a PMHx of PE, A fib, Cellulitis, T2DM, HTN, HLD who presented to the ED for RLE cellulitis. She had originally been on Cephalexin without improvement of symptoms. She was subsequently sent to the ER by her PCP for further evaluation. 11/29/24 Patient is sitting comfortably at bedside upon examination. She endorses relief of right lower extremity pain but still endorses some left knee pain at rest. S he states that at rest, her RLE does not feel painful, warm, but upon palpitation does still experience some generalized sharp pain from the mid lower leg down to the foot. Denies any nausea/vomiting, chest pain, shortness of breath. She is able to ambulate with a walker without difficulties. Plan to switch to PO Augmentin starting tonight (11/29) with possible discharge tomorrow. Review of Systems Review of Systems: CONSTITUTIONAL: Denies fever SKIN: Reports redness and swelling, improving All systems reviewed & are unremarkable except as noted in HPI and below Exam Narrative: GENERAL: Elderly, well-nourished, and in no acute distress. HEAD: Normocephalic, atraumatic. EYES: EOMI. CHEST: Clear to auscultation. No respiratory distress. No wheezes rales or rhonchi HEART: Regular rate and rhythm. No murmur heard. Normal peripheral pulses. EXTREMITIES: Normal range of motion. Edema and erythema to the right lower leg with a small blister to the right medial ankle. Able to be palpated without pa in. Normal DP pulse. Normal sensation. Left knee pain at rest, worse with ambulation and palpitation. SKIN: Warm, dry, no rash. NEURO: No focal deficits. Alert and oriented x3. PSYCH: Normal mood and affect Objective Data Vital Signs Vital Signs: Vital Signs - 24 hr 11/28/24 11:43 11/28/24 14:00 11/28/24 20:13 Temperature 97.4 F L 97.3 F L Pulse Rate 84 83 Respiratory Rate 18 18 Blood Pressure 155/60 H 162/84 H Pulse Oximetry 96 98 Oxygen Delivery Room Air 11/29/24 06:00 Temperature 99.1 F Pulse Rate 83 Respiratory Rate 18 Blood Pressure 156/45 H Pulse Oximetry 97 Oxygen Delivery Intake/Output Intake/Output: Intake & Output 11/26/24 11/27/24 11/28/24 11/29/24 23:59 23:59 23:59 23:59 Intake Total 500 1270 2230 300 Output Total 100 4 Balance 500 1170 2226 300 Meds/Results Medications: Active Medications Generic Name Dose Route Start Last Admin Trade Name Freq PRN Reason Stop Dose Admin Acetaminophen 1,000 mg 11/27/24 08:06 11/29/24 03:39 Acetaminophen 500 Mg Tablet PO 1,000 mg Q6H PRN Administration Pain Rated 1-3 Dextrose 12.5 gm 11/26/24 21:33 Dextrose 50% 25 Gm/50 Ml Syringe IV PUSH PRN PRN Hypoglycemia Protocol Docusate Sodium 100 mg 11/27/24 09:00 11/29/24 08:13 Docusate Sodium 100 Mg Capsule PO 100 mg BID JESSICA Administration Furosemide 20 mg 11/27/24 09:00 11/29/24 08:13 Furosemide 20 Mg Tablet PO 20 mg DAILY JESSICA Administration Glucagon 1 mg 11/26/24 21:33 Glucagon For Inj 1 Mg Vial IM PRN PRN Hypoglycemia Protocol Glucose 15 gm 11/26/24 21:33 Glucose Oral Gel 15 Gm Of Glucse In 37.5 Gm Tube PO PRN PRN Hypoglycemia Protocol Dextrose 1,000 mls @ 100 mls/hr 11/26/24 21:33 Dextrose 5% 1,000 Ml IVPB PRN PRN Hypoglycemia Protocol Metronidazole 500 mg in 100 mls @ 100 mls/hr 11/27/24 09:00 11/29/24 06:21 Flagyl 500 Mg/Iso Soln 100 Ml IVPB 100 mls/hr Q8HR JESSICA Administration Cefepime HCl 1 gm in 50 mls @ 100 mls/hr 11/27/24 21:00 11/29/24 08:13 Maxipime 1 Gm/Ns 50 Ml IVPB 100 mls/hr Q12HR JESSICA Administration Insulin Aspart 2 - 5 units 11/27/24 12:00 11/29/24 08:12 Insulin Aspart (*Bkc) 100 Units/Ml SUB-Q Not Given TIDWM EJSSICA Protocol Levothyroxine Sodium 100 mcg 11/27/24 08:20 11/29/24 06:19 Levothyroxine Sodium 100 Mcg Tablet PO 100 mcg DAILY@0630 JESSICA Administration Losartan Potassium 25 mg 11/27/24 09:00 11/29/24 08:13 Losartan Potassium 25 Mg Tablet PO 25 mg DAILY JESSICA Administration Miconazole Nitrate 1 applic 11/27/24 13:20 11/29/24 08:14 Miconazole Nitrate 2% Cream 30 Gm Tube TOPICAL 1 applic Q12HR JESSICA Administration Ondansetron HCl 4 mg 11/26/24 22:19 Ondansetron Inj 4 Mg/2 Ml Vial IV PUSH Q4H PRN Nausea Perflutren Lipid Microsphere 0 ml 11/27/24 08:12 Perflutren Lipid Microspheres 1.5 Ml Vial Diluted To 10 Ml Total Volume IV PUSH 11/30/24 08:12 ONCE PRN adequate visualization Protocol Polyethylene Glycol 17 gm 11/28/24 09:00 11/29/24 08:13 Polyethylene Glycol 3350 17 Gm Powd.Pack PO 17 gm QAM JESSICA Administration Rivaroxaban 20 mg 11/27/24 17:00 11/28/24 17:16 Rivaroxaban 20 Mg Tablet PO 20 mg DAILY@1700 JESSICA Administration Rosuvastatin Calcium 40 mg 11/27/24 18:00 11/28/24 17:16 Rosuvastatin 20 Mg Tablet PO 40 mg QPM JESSICA Administration Tramadol HCl 50 mg 11/27/24 08:06 Tramadol Hcl (*Crx) 50 Mg Tablet PO Q6H PRN Pain Rated 4-6 Radiology Results: ITS Impressions Venous Doppler Study 11/26/24 17:34 IMPRESSION: Negative right lower extremity venous US. No deep vein thrombosis. Lower Extremity CT 11/26/24 19:59 IMPRESSION: Edema in the subcutaneous tissues with 2 collections seen above the antecubital anterolaterally. Further evaluation and Follow-up advised. Knee X-Ray 11/27/24 13:40 Impression: Tricompartmental degenerative change, as detailed above. Labs Labs: Laboratory Results - last 24 hr 11/28/24 11/28/24 11/28/24 11:27 16:54 20:12 WBC RBC Hgb Hct MCV MCH MCHC RDW Plt Count MPV Immature Gran % (Auto) Neut % (Auto) Lymph % (Auto) [place] % (Auto) Eos % (Auto) Baso % (Auto) Lymph # (Auto) [place] # (Auto) Eos # (Auto) Baso # (Auto) Abs Immat Gran (auto) Absolute Neuts (auto) Absolute Nucleated RBC Nucleated RBC % Sodium Potassium Chloride Carbon Dioxide Anion Gap BUN Creatinine Estim Creat Clear Calc Estimated GFR Glucose POC Capillary Glucose 241 H 190 H 170 H Calcium 11/29/24 11/29/24 04:11 07:57 WBC 7.7 RBC 3.41 L Hgb 10.1 L Hct 31.7 L MCV 93.0 MCH 29.6 MCHC 31.9 L RDW 14.0 Plt Count 176 MPV 10.5 H Immature Gran % (Auto) 0.4 Neut % (Auto) 74.1 H Lymph % (Auto) 14.7 L [place] % (Auto) 8.3 Eos % (Auto) 2.1 Baso % (Auto) 0.4 Lymph # (Auto) 1.13 [place] # (Auto) 0.6 Eos # (Auto) 0.2 Baso # (Auto) 0.0 Abs Immat Gran (auto) 0.03 Absolute Neuts (auto) 5.7 Absolute Nucleated RBC 0.000 Nucleated RBC % 0.0 Sodium 139 Potassium 3.5 Chloride 104 Carbon Dioxide 28 Anion Gap 7 BUN 16 Creatinine 0.84 Estim Creat Clear Calc 42 Estimated GFR > 60 Glucose 132 H POC Capillary Glucose 138 H Calcium 8.4 Quality VTE Prophylaxis VTE prophylaxis: pharmacologic ordered
[2024-11-29 12:02] LABS: Glucose Point of Care 155 mg/dl (65-105)
[2024-11-29 14:00] VITALS: BP 161/87; PULSE 85; RESP 18; TEMP 35.9; O2SAT 99
[2024-11-29 17:19] LABS: Glucose Point of Care 139 mg/dl (65-105)
[2024-11-29] MEDS: RIVAROXABAN 20 MG TABLET PO (17:25)
[2024-11-29] MEDS: ROSUVASTATIN 20 MG TABLET 40 MG PO (17:25)
[2024-11-29 20:22] VITALS: BP 169/74; PULSE 88; RESP 18; TEMP 36.5; O2SAT 91
[2024-11-29] MEDS: AMOXICILLIN/CLAVULANATE K 875-125 MG TAB 1 TABLET PO (20:53)
[2024-11-29 23:14] LABS: Glucose Point of Care 164 mg/dl (65-105)
[2024-11-30 05:01] VITALS: BP 158/78; PULSE 77; RESP 20; TEMP 36.5; O2SAT 97
[2024-11-30 05:33] LABS: Basophils Percent Auto 0.6 % (0.2-1.2); Eosinophils Absolute Auto 0.2 K/mm3 (0-0.3); Hematocrit 31.6 % (37.0-47.0); Hemoglobin 9.9 g/dL (12.0-15.0); Immature Granulocyte Absolute 0.03 K/mm3 (0.00-0.031); Immature Granulocyte Percent A 0.4 % (0-0.5); Lymphocytes Percent Auto 14.3 % (18.3-44.2); Mean Corpuscular HGB Conc 31.3 g/dl (32-36); Mean Corpuscular Hemoglobin 29.4 pg (26-34); Mean Corpuscular Volume 93.8 fl (80-100); Mean Platelet Volume 10.2 fl (7.4-10.4); Monocytes Absolute Auto 0.5 K/mm3 (0.1-0.6); Monocytes Percent Auto 7.6 % (2.6-8.5); Neutrophils Absolute Auto 5.2 K/mm3 (1.3-6.7); Neutrophils Percent Auto 74.1 % (45.5-73.1); Platelet Count Result 183 k/mm3 (150-375); Red Blood Count 3.37 M/mm3 (4.2-5.4); Red Cell Distribution Width 13.8 % (11.5-14.5)
[2024-11-30 05:53] LABS: Anion Gap 6 mmol/L (4-12); Blood Urea Nitrogen 15 mg/dL (7-17); Calcium 8.4 mg/dL (8.4-10.2); Carbon Dioxide 30 mmol/L (22-30); Chloride 104 mmol/L (98-107); Estimated CRCL calculation 46 ml/min; Estimated Glomerular Filt Rate > 60; Glucose 132 mg/dL (65-110); Potassium 3.3 mmol/L (3.4-5.0); Sodium 140 mmol/L (137-145)
[2024-11-30] MEDS: LEVOTHYROXINE SODIUM 100 MCG TABLET PO (06:21)
[2024-11-30] MEDS: LOSARTAN POTASSIUM 25 MG TABLET PO (08:17)
[2024-11-30] MEDS: FUROSEMIDE 20 MG TABLET PO (08:17)
[2024-11-30] MEDS: AMOXICILLIN/CLAVULANATE K 875-125 MG TAB 1 TABLET PO (08:17)
[2024-11-30] MEDS: DOCUSATE SODIUM 100 MG CAPSULE PO (08:17)
[2024-11-30] MEDS: MICONAZOLE NITRATE 2% CREAM 30 GM TUBE 1 APPLIC TOPICAL (08:18)
[2024-11-30] MEDS: polyethylene glycoL 3350 17 GM POWD.PACK PO (08:18)
[2024-11-30 08:30] LABS: Glucose Point of Care 132 mg/dl (65-105)
--- NOTE | 2024-11-30 08:44 | PM.DS ---
DS: Admitting Diagnosis Discharge Date 11/30/2024 Admitting Diagnosis Cellulitis DS: Discharge Diagnosis Discharge Diagnosis (1) Cellulitis of right lower extremity: Code(s): L03.115 - Cellulitis of right lower limb Status: Acute (2) Left knee pain: Code(s): M25.562 - Pain in left knee Status: Acute (3) Elevated hemoglobin A1c: Code(s): R73.09 - Other abnormal glucose Status: Acute (4) History of atrial fibrillation: Code(s): Z86.79 - Personal history of other diseases of the circulatory system Status: Acute (5) Diabetes type 2, controlled: Code(s): E11.9 - Type 2 diabetes mellitus without complications Status: Acute DS: Summary Hospital Course Reason for hospitalization: Cellulitis of Lower Extremity Left knee pain Hospital Course: 84 year old female with history of cellulitis,Hx PE, A.Fib, DM type 2, HTN ,HLD presents to the ER for right lower extremity cellulitis. She is on Cephalexin currently without relief. Sent to the ER by her PCP for further management. ED Labs= WBC 9.1, HgB 11, HCT 35, PLT 155, Na 140,K 3.9,BUN 14, Cr 0.80,GFR >60, Glucose 144,HbA1C 7.2,BNP 958. MRSA Negative. Lower Ext CT:Edema in the subcutaneous tissues with 2 collections seen above the antecubital anterolaterally. Further evaluation and Follow-up advised. Lower ext US Rt:Negative right lower extremity venous US. No deep vein thrombosis Record review indicates patient has lower extremity swelling for long period time and also had procedure to repair pelvic organ prolapse in 2021 and 2 days later developed blisters on the leg. During the examination patient reports she has this right side cellulitis at least 3 times.Patient also rash under breast ,advised to apply nystatin cream. She also complained of left knee pain. She has a history of arthritis, Left Knee Xray showed Tricompartmental degenerative change but was otherwise unremarkable. Blood cultures were obtained and showed no growth. She was initiated on 2gm Cefepime for antibiotic coverage. CA echo doppler color flow obtained, showed Normal LV size, moderate LVH, normal LV systolic function, ejection fraction about 55-60%; diastolic dysfunction is present with elevated left heart pressures. Moderate left atrial enlargement. Dense mitral annular calcification, mild mitral stenosis, trivial MR. She was eventually switched to PO Augmentin and showed improvement of her symptoms and ability to ambulate without assistance. She is stable to be discharged home on PO Augmentin for 3 further days for a total of 7 doses (including today). Patient is amenable to this plan. Time Spent with Patient Time attestation: Total time spent providing and/or coordinating discharge services:30 Exam Narrative: GENERAL: Elderly, well-nourished, and in no acute distress. HEAD: Normocephalic, atraumatic. EYES: EOMI. CHEST: Clear to auscultation. No respiratory distress. No wheezes rales or rhonchi HEART: Regular rate and rhythm. No murmur heard. Normal peripheral pulses. EXTREMITIES: Normal range of motion. Minimal edema and erythema to the right lower leg with a small blister to the right medial ankle. Able to be palpated without pain. Normal DP pulse. Normal sensation. Left knee pain at rest, worse with ambulation and palpitation. SKIN: Warm, dry, no rash. NEURO: No focal deficits. Alert and oriented x3. PSYCH: Normal mood and affect DS: Data Data Completed and Pending Labs on day of discharge: Labs from last 24 hours 11/30/24 11/30/24 11/29/24 07:47 04:55 20:27 WBC 7.0 RBC 3.37 L Hgb 9.9 L Hct 31.6 L MCV 93.8 MCH 29.4 MCHC 31.3 L RDW 13.8 Plt Count 183 MPV 10.2 Immature Gran % (Auto) 0.4 Neut % (Auto) 74.1 H Lymph % (Auto) 14.3 L [place] % (Auto) 7.6 Eos % (Auto) 3.0 Baso % (Auto) 0.6 Lymph # (Auto) 1.00 [place] # (Auto) 0.5 Eos # (Auto) 0.2 Baso # (Auto) 0.0 Abs Immat Gran (auto) 0.03 Absolute Neuts (auto) 5.2 Absolute Nucleated RBC 0.000 Nucleated RBC % 0.0 Sodium 140 Potassium 3.3 L Chloride 104 Carbon Dioxide 30 Anion Gap 6 BUN 15 Creatinine 0.77 Estim Creat Clear Calc 46 Estimated GFR > 60 Glucose 132 H POC Capillary Glucose 132 H 164 H Calcium 8.4 11/29/24 11/29/24 17:12 11:58 WBC RBC Hgb Hct MCV MCH MCHC RDW Plt Count MPV Immature Gran % (Auto) Neut % (Auto) Lymph % (Auto) [place] % (Auto) Eos % (Auto) Baso % (Auto) Lymph # (Auto) [place] # (Auto) Eos # (Auto) Baso # (Auto) Abs Immat Gran (auto) Absolute Neuts (auto) Absolute Nucleated RBC Nucleated RBC % Sodium Potassium Chloride Carbon Dioxide Anion Gap BUN Creatinine Estim Creat Clear Calc Estimated GFR Glucose POC Capillary Glucose 139 H 155 H Calcium Preliminary micro results at discharge 11/26/24 21:51 Blood Culture - Preliminary Blood 11/26/24 21:51 Blood Culture - Preliminary Blood Discharge Plan Discharge Attending physician on discharge: Phi Wiggins Discharging Clinician: Phi Wiggins Anticipated Discharge Date/Time: 11/30/24 08:41 Patient Disposition: Home, Self-Care Activity: as tolerated Diet: as tolerated Discharge Instructions: Discharge disposition: Stable Take your Augmentin as prescribed for the entire course Monitor blood pressures Take caution while standing, rising, or moving Change positions slowly taking a break between each position change If you standing feel dizzy sit back down and take a break Encouraged to continue with yearly vaccinations Return to the emergency department if he developed sudden shortness of breath, chest pain, nausea, vomiting, upset stomach or intractable diarrhea Return to the emergency department if you develop fever greater than 101.5 Follow-up with the primary care physician within 1-2 weeks Thank you for [facility] for your healthcare needs Patient Instructions: Antibiotic Form, Rivaroxaban (By mouth) Patient Language: Hebrew Stand Alone Forms: General Discharge Information Follow-up/Referrals: Renetta,MD Sonya [Primary Care Provider] - Discharge Medications: New amoxicillin-pot clavulanate 875-125 mg tablet 1 tablet PO Q12H Qty: 7 0RF Continued losartan 25 mg tablet 25 mg PO DAILY rosuvastatin 40 mg tablet 40 mg PO DAILY metoprolol tartrate 25 mg tablet 25 mg PO DAILY Xarelto 20 mg tablet 20 mg PO DAILY Rx Instructions: must administer with evening meal levothyroxine [Euthyrox] 100 mcg tablet 100 mcg PO QAM lisinopril-hydrochlorothiazide 20-25 mg tablet 1 tablet PO QAM tramadol 50 mg tablet 50 mg PO Q6H PRN (Reason: pain) Qty: 20 0RF docusate sodium [Colace] 100 mg capsule 100 mg PO BID Qty: 60 0RF furosemide [Lasix] 20 mg tablet 20 mg PO DAILY 3 Days Qty: 3 0RF acetaminophen 500 mg capsule 1,000 mg PO Q6H PRN (Reason: pain) Qty: 30 0RF Date of admission: 11/28/24 13:41 Primary Care Provider: Renetta,Sonya Admitting Provider: Ilsa Serra Attending physician on admission: Phi Wiggins Condition: Stable Quality VTE Prophylaxis VTE prophylaxis: pharmacologic ordered Hospitalist MIPS Heart Failure (Exclusion) Patient has history of Heart Transplant or Left Ventricular Assistive Device?: No IF YES, STOP HERE Heart Failure (Qualifier) Patient has current or prior documentation of LVEF less than or equal to 40%, or mod/servere depressed LVSF?: No IF NO, STOP HERE
[2024-11-30] MEDS: ACETAMINOPHEN 500 MG TABLET 1000 MG PO (11:49)
== END 2024-11-30 12:47 | disposition home health service (06) | DRG 603 ==
LOC: ANHED 22:27 → ANH2MED 23:21
PROVIDERS: Physician Assistant; Admitting Provider Internal Medicine; Emergency Provider Physician Assistant; PCP Internal Medicine; Visit Provider Physician Assistant
DX: L03.115 Cellulitis of right lower limb (principal); I50.32 Chronic diastolic (congestive) heart failure; E11.9 Type 2 diabetes mellitus without complications; E78.5 Hyperlipidemia, unspecified; M17.12 Unilateral primary osteoarthritis, left knee; I11.0 Hypertensive heart disease with heart failure; I48.91 Unspecified atrial fibrillation; R21 Rash and other nonspecific skin eruption; Z86.711 Personal history of pulmonary embolism; Z79.01 Long term (current) use of anticoagulants
CPT/HCPCS: 36415; 73560; 73701; 80048; 80053; 82948; 83036; 83735; 83880; 85025; 85610; 85652; 85730; 86140; 87040; 87641; 93005; 93306; 93971; 96365; 96366; 96367; 96375; 97161; 97165; 97530; 97535; 99285; A9270; G0378; J0692; J1815; J1836; J3370; Q9967